=== PATIENT | male | born 1950 | race Caucasian/White ===

== ENCOUNTER 2016-07-19 19:23 | Inpatient (IN) | payer OTHER ==
[2016-07-19 19:33] VITALS: BMI 24.4
--- NOTE | 2016-07-19 19:39 | PDOC ---
History of Present Illness - General History Source: Patient Exam Limitations: No Limitations - History of Present Illness Initial Comments: 07/19/16 21:04 The patient is a 66-year-old male with a significant past medical history of diabetes, CHF, hypertension, hypercholesterolemia, vertigo, (compliant with medications), and presents to the emergency department with increased urination , lightheadedness, and generalized weakness for the last few days. The patient reports an increase in urination from his baseline, accompanied by increased thirst. He reports feeling like the room is spinning. He reports nausea for the last 4 days, and has not been eating secondary to the nausea. He reports associated constipation and chills. He reports his sugar levels have been high, but does not deviate from his baseline. The patient denies chest pain, shortness of breath, and headache. The patient denies fever, abdominal pain, vomit, and diarrhea. The patient denies dysuria and hematuria. He denies recent sick contacts or changes in medications. 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 Dumas/ Dr. Araceli Jara <Madeline Schmidt - Last Filed: 07/19/16 22:04> <Pauline Goff - Last Filed: 07/19/16 23:38> - General Chief Complaint: Urinary Problem Stated Complaint: LIGHTHEADED/URINARY PROBLEM Time Seen by Provider: 07/19/16 19:38 Past History <Madeline Schmidt - Last Filed: 07/19/16 22:04> - Past Medical History Diabetes: Yes HTN: Yes Hypercholesterolemia: Yes - Immunization History Immunization Up to Date: Yes - Psycho/Social/Smoking Cessation Hx Anxiety: No Suicidal Ideation: No Smoking History: Never smoked Have you smoked in the past 12 months: No If you are a former smoker, when did you quit?: 30 YEARS AGO Information on smoking cessation initiated: No Hx Alcohol Use: No Drug/Substance Use Hx: No Substance Use Type: None <Pauline Goff - Last Filed: 07/19/16 23:38> - Past Medical History Allergies/Adverse Reactions: Allergies Allergy/AdvReac Type Severity Reaction Status Date / Time No Known Allergies Allergy Verified 07/19/16 19:33 Home Medications: Ambulatory Orders Aspirin [ASA -] 81 mg PO DAILY 07/19/16 Clopidogrel Bisulfate [Plavix -] 75 mg PO DAILY 07/19/16 Furosemide [Lasix] 80 mg PO DAILY 07/19/16 Insulin Glargine,Hum.rec.anlog [Toudemetriceo Solostar] 50 unit SQ DAILY 07/19/16 Insulin Lispro [Humalog] 10 unit SQ TID 07/19/16 Metoprolol Succinate [Toprol Xl -] 25 mg PO BID 07/19/16 Rosuvastatin [Crestor -] 40 mg PO DAILY 07/19/16 Review of Systems - Review of Systems Able to Perform ROS?: Yes Comments:: 07/19/16 21:04 CONSTITUTIONAL: Present: (+) chills, (+) generalized weakness, (+) loss of appetite Absent: fever, diaphoresis, malaise HEENT: Absent: rhinorrhea, nasal congestion, throat pain, throat swelling, difficulty swallowing, mouth swelling, ear pain, eye pain, visual changes CARDIOVASCULAR: Present: (+) lightheadedness Absent: chest pain, syncope, palpitations, irregular heart rate, peripheral edema RESPIRATORY: Absent: cough, shortness of breath, dyspnea with exertion, orthopnea, wheezing, stridor, hemoptysis GASTROINTESTINAL: Present: (+) nausea, (+) constipation Absent: abdominal pain, abdominal distension, vomiting, diarrhea, melena, hematochezia GENITOURINARY: Present: (+) increased urination Absent: dysuria, urgency, hesitancy, hematuria, flank pain, genital pain MUSCULOSKELETAL: Absent: myalgia, arthralgia, joint swelling SKIN: Absent: rash, itching, pallor HEMATOLOGIC/IMMUNOLOGIC: Absent: easy bleeding, easy bruising, lymphadenopathy, frequent infections ENDOCRINE: Absent: unexplained weight gain, unexplained weight loss, heat intolerance, cold intolerance NEUROLOGIC: Absent: headache, focal weakness or paresthesias, unsteady gait, seizure, mental status changes, bladder or bowel incontinence PSYCHIATRIC: Absent: anxiety, depression, suicidal or homicidal ideation, hallucinations. <Madeline Schmidt - Last Filed: 07/19/16 22:04> *Physical Exam - Vital Signs Last Vital Signs Temp Pulse Resp BP Pulse Ox 100.5 F H 84 20 136/78 95 07/19/16 19:30 07/19/16 20:56 07/19/16 20:56 07/19/16 20:56 07/19/16 20:56 - Physical Exam Comments: 07/19/16 21:05 GENERAL: Well developed, well nourished. Awake and alert. No acute distress. (+) Febrile. HEENT: Normocephalic, atraumatic. PERRLA, EOMI. No conjunctival pallor. Sclera are non- icteric. Moist mucous membranes. Oropharynx is clear. NECK: Supple. Full ROM. No JVD. Carotid pulses 2+ and symmetric, without bruits. No thyromegaly. No lymphadenopathy. CARDIOVASCULAR: (+) Midsternal surgical scar. Regular rate and rhythm. No murmurs, rubs, or gallops. Distal pulses are 2+ and symmetric. PULMONARY: No evidence of respiratory distress. Lungs clear to auscultation bilaterally. No wheezing, rales or rhonchi. ABDOMINAL: Soft. Non-tender. Non-distended. No rebound or guarding. No organomegaly. Normoactive bowel sounds. MUSCULOSKELETAL Normal range of motion at all joints. No bony deformities or tenderness. No CVA tenderness. EXTREMITIES: No cyanosis. No clubbing. No edema. No calf tenderness. SKIN: Warm and dry. Normal capillary refill. No rashes. No jaundice. NEUROLOGICAL: Alert, awake, appropriate. Cranial nerves 2-12 intact. No deficits to light touch and temperature in face, upper extremities and lower extremities. No motor deficits in the in face, upper extremities and lower extremities. Normoreflexic in the upper and lower extremities. Normal speech. Toes are down- going bilaterally. Gait is normal without ataxia. PSYCHIATRIC: Cooperative. Good eye contact. Appropriate mood and affect. <Madeline Schmidt - Last Filed: 07/19/16 22:04> - Vital Signs Last Vital Signs Temp Pulse Resp BP Pulse Ox 100.5 F H 94 H 18 140/78 99 07/19/16 19:30 07/19/16 19:30 07/19/16 19:30 07/19/16 19:30 07/19/16 19:30 <Pauline Goff - Last Filed: 07/19/16 23:38> ED Treatment Course - LABORATORY CBC & Chemistry Diagram: 07/19/16 14:52 07/19/16 14:52 - ADDITIONAL ORDERS Additional order review: Laboratory Results 07/19/16 20:36 Urine Color Yellow Urine Appearance Cloudy Urine pH 5.0 Ur Specific [place] 1.013 Urine Protein 3+ H Urine Glucose (UA) 2+ H Urine Ketones Negative Urine Blood 2+ H Urine Nitrite Negative Urine Bilirubin Negative Urine Urobilinogen Negative Ur Leukocyte Esterase 3+ H Urine RBC 14 Urine WBC 322 Ur Epithelial Cells Rare Urine Bacteria Many Urine Mucus Rare 07/19/16 14:52 RBC 4.43 MCV 84.1 MCHC 32.5 RDW 15.5 MPV 9.5 Neutrophils % 86.8 H Lymphocytes % 3.6 L D Monocytes % 9.4 Eosinophils % 0.0 D Basophils % 0.2 - Medications Given in the ED: ED Medications Discontinued Medications Generic Name Dose Route Start Last Admin Trade Name Chapo PRN Reason Stop Dose Admin Acetaminophen 650 mg 07/19/16 20:33 07/19/16 20:43 Tylenol - PO 07/19/16 20:34 650 mg ONCE ONE Administration Insulin Human Regular 4 units 07/19/16 20:32 07/19/16 20:44 Novolin R Vial *Ivpush / Er / Icu Only* SQ 07/19/16 20:33 4 units ONCE ONE Administration Sodium Chloride 1,000 ml 07/19/16 20:06 07/19/16 20:36 Normal Saline - IV 07/19/16 20:07 1,000 ml ONCE ONE Administration <Madeline Schmidt - Last Filed: 07/19/16 22:04> - LABORATORY CBC & Chemistry Diagram: 07/19/16 14:52 07/19/16 14:52 <Pauline Goff - Last Filed: 07/19/16 23:38> Medical Decision Making - Medical Decision Making 07/19/16 21:[address] King. 07/19/16 22:[address] King. <Madeline Schmidt - Last Filed: 07/19/16 22:04> - Medical Decision Making 07/19/16 23:35 Uncontrolled DM and HTN patient comes with a fever 3 mos after CABG. Pt states that he has been urinating a lot. He also has a cough. He will be treated with levaquin to cover possible pneumonia and UTI (he has multiple leukocytes) Pt also has + troponin and will need to be followed in tele. However his BIUN and Cr are elevated and this may be the reason for his troponin. <Pauline Goff - Last Filed: 07/19/16 23:38> *DC/Admit/Observation/Transfer - Attestations Scribe Attestion: 07/19/16 21:05 Documentation prepared by Madeline Schmidt, acting as medical technician for Pauline Goff MD. <Madeline Schmidt - Last Filed: 07/19/16 22:04> - Discharge Dispostion Admit: Yes <Pauline Goff - Last Filed: 07/19/16 23:38> Diagnosis at time of Disposition: Diabetes, Elevated troponin, Uncontrolled diabetes mellitus, HTN (hypertension) , Pneumonia - Referrals
[2016-07-19] MEDS ORDERED: SODIUM CHLORIDE 0.9% 500 ML INFUS.BAG IV ONE (20:06)
[2016-07-19] MEDS ORDERED: INSULIN REGULAR HUMAN 100 UNITS/ML *VIAL SQ ONE (20:32)
[2016-07-19] MEDS ORDERED: ACETAMINOPHEN 325 MG TABLET (FP) PO ONE (20:33)
[2016-07-19] MEDS ORDERED: ACETAMINOPHEN 325 MG TABLET (FP) ONE (20:37)
[2016-07-19] MEDS ORDERED: INSULIN REGULAR HUMAN 100 UNITS/ML *VIAL ONE (20:39)
[2016-07-19 20:43] LABS: URINE APPEARANCE CLOUDY; URINE BILIRUBIN NEGATIVE (NEGATIVE); URINE COLOR YELLOW; URINE GLUCOSE (UA) 2+ (NEGATIVE); URINE KETONE NEGATIVE (NEGATIVE); URINE NITRITE NEGATIVE (NEGATIVE); URINE UROBILINOGEN NEGATIVE E.U./dl (0.2-1.0)
[2016-07-19 20:46] LABS: BASOPHIL 0.2 % (0-2.0); MCH 27.3 pg (25.7-33.7); MCHC 32.5 g/dl (32.0-35.9); MEAN CELL VOLUME 84.1 fl (80-96); MEAN PLT VOLUME 9.5 fl (7.5-11.1); NEUTROPHILS 86.8 % (42.8-82.8); PLATELET COUNT 189 K/MM3 (134-434); RDW 15.5 % (11.9-15.9); WHITE BLOOD COUNT 13.7 K/mm3 (4.0-10.0)
[2016-07-19 20:51] LABS: URINE BLOOD 2+ (NEGATIVE); URINE LEUK ESTERASE 3+ (NEGATIVE); URINE PROTEIN 3+ (NEGATIVE)
[2016-07-19 20:52] LABS: URINE BACTERIA MANY /hpf (NONE SEEN); URINE MUCUS RARE; URINE RBC 14 /hpf (0-3); URINE WBC 322 /hpf (3-5)
[2016-07-19] MEDS ORDERED: LEVOFLOXACIN 500 MG IVPB 100 ML IVPB ONE ×2 (20:53→21:11)
[2016-07-19 21:10] LABS: ALBUMIN 3.1 g/dl (3.4-5.0); BILIRUBIN,TOTAL 0.4 mg/dL (0.2-1.0); CALCIUM 8.3 mg/dL (8.5-10.1); TOT PROT 7.3 g/dl (6.4-8.2)
[2016-07-19 21:13] LABS: TROPONIN I 0.06 ng/ml (0.00-0.05)
[2016-07-19] MEDS ORDERED: METRONIDAZOLE 500 MG PREMIXED 100 ML IVPB ONE ×2 (21:41→21:56)
[2016-07-19] MEDS ORDERED: ACETAMINOPHEN 325 MG TABLET (FP) PO PRN (21:45)
[2016-07-19] MEDS ORDERED: METOPROLOL SUCCINATE 50 MG TAB.SR.24H (FP) ONE (21:56)
[2016-07-19] MEDS: METOPROLOL SUCCINATE 25 MG TAB.SR.24H (FP) PO SCH (22:06)
[2016-07-19] MEDS ORDERED: HEPARIN NA (PORCINE) 5,000 UNITS/ML 1ML VIAL ONE (22:11)
[2016-07-19] MEDS ORDERED: INSULIN DETEMIR 100 UNITS/ML MDV SQ ONE (22:12)
[2016-07-19] MEDS: HEPARIN NA (PORCINE) 5,000 UNITS/ML 1ML VIAL SQ SCH (22:21)
[2016-07-19] MEDS: INSULIN DETEMIR 100 UNITS/ML MDV SQ SCH (22:22)
[2016-07-19] MEDS: INSULIN SLIDING SCALE (NOVOLOG) 1 VIAL SQ SCH (22:22)
[2016-07-20 07:21] LABS: BASOPHIL 0.4 % (0-2.0); EOSINOPHIL 0.8 % (0-4.5); MCH 28.3 pg (25.7-33.7); MCHC 33.4 g/dl (32.0-35.9); MEAN CELL VOLUME 84.8 fl (80-96); MEAN PLT VOLUME 9.3 fl (7.5-11.1); NEUTROPHILS 73.1 % (42.8-82.8); PLATELET COUNT 182 K/MM3 (134-434); RDW 15.7 % (11.9-15.9); WHITE BLOOD COUNT 12.9 K/mm3 (4.0-10.0)
[2016-07-20 07:46] LABS: ALBUMIN 2.6 g/dl (3.4-5.0); CALCIUM 7.9 mg/dL (8.5-10.1); MAGNESIUM 2.2 mg/dL (1.8-2.4)
[2016-07-20 07:48] LABS: BILIRUBIN,TOTAL 0.3 mg/dL (0.2-1.0); CREATININE 1.9 mg/dL (0.7-1.3); TOT PROT 6.4 g/dl (6.4-8.2)
[2016-07-20] MEDS: INSULIN SLIDING SCALE (NOVOLOG) 1 VIAL SQ SCH ×4 (08:00→21:32)
[2016-07-20 08:53] LABS: TROPONIN I 0.04 ng/ml (0.00-0.05)
[2016-07-20] MEDS ORDERED: CEFTRIAXONE 1 GM in DEXTROSE 5%-WATER - 100 ML IVPB SCH (10:00)
[2016-07-20] MEDS: HEPARIN NA (PORCINE) 5,000 UNITS/ML 1ML VIAL SQ SCH ×2 (10:13→21:31)
[2016-07-20] MEDS: INSULIN DETEMIR 100 UNITS/ML MDV SQ SCH ×2 (10:13→21:32)
[2016-07-20] MEDS ORDERED: ASPIRIN 81 MG CHEWABLE TABLETS ONE (10:16)
[2016-07-20] MEDS ORDERED: METOPROLOL SUCCINATE 50 MG TAB.SR.24H (FP) ONE (10:17)
[2016-07-20] MEDS ORDERED: FUROSEMIDE 40 MG TABLET (FP) ONE (10:17)
[2016-07-20] MEDS ORDERED: CEFTRIAXONE 50 ML ONE (10:17)
[2016-07-20] MEDS ORDERED: CLOPIDOGREL BISULFATE 75 MG TABLET (FP) ONE (10:17)
[2016-07-20] MEDS: ASPIRIN 81 MG CHEWABLE TABLETS PO SCH (10:18)
[2016-07-20] MEDS: cefTRIAXone 1 GM/50 ML BAG (PRE-DOCKED) IVPB SCH (10:18)
[2016-07-20] MEDS: FUROSEMIDE 40 MG TABLET (FP) PO SCH (10:18)
[2016-07-20] MEDS: CLOPIDOGREL BISULFATE 75 MG TABLET (FP) PO SCH (10:18)
[2016-07-20] MEDS: METOPROLOL SUCCINATE 25 MG TAB.SR.24H (FP) PO SCH ×2 (10:18→21:31)
--- NOTE | 2016-07-20 10:54 | HP ---
Admitting History and Physical - Admission History of Present Illness: 66-year-old male with a significant past medical history of diabetes, CHF, hypertension, hypercholesterolemia, vertigo, (compliant with medications), and presents to the emergency department with increased urination, lightheadedness, and generalized weakness for the last few days. The patient reports an increase in urination from his baseline, accompanied by increased thirst. He reports feeling like the room is spinning. He reports nausea for the last 4 days, and has not been eating secondary to the nausea. He reports associated constipation and chills. He reports his sugar levels have been high, but does not deviate from his baseline. The patient denies chest pain, shortness of breath, and headache. The patient denies fever, abdominal pain, vomit, and diarrhea. The patient denies dysuria and hematuria. He denies recent sick contacts or changes in medications. 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: Yes: Migraine Cardiovascular: Yes: CAD, HTN, Hyperlipdemia, [place] Gastrointestinal: Yes: GERD Endocrine: Yes: Diabetes Mellitus - Past Surgical History Past Surgical History: Yes: Stent - Smoking History Smoking history: Never smoked Have you smoked in the past 12 months: No If you are a former smoker, when did you quit?: 30 YEARS AGO - Alcohol/Substance Use Hx Alcohol Use: No Home Medications - Allergies Allergies/Adverse Reactions: Allergies Allergy/AdvReac Type Severity Reaction Status Date / Time No Known Allergies Allergy Verified 07/19/16 19:33 - Home Medications Home Medications: Ambulatory Orders Aspirin [ASA -] 81 mg PO DAILY 07/19/16 Clopidogrel Bisulfate [Plavix -] 75 mg PO DAILY 07/19/16 Furosemide [Lasix] 40 mg PO DAILY 07/19/16 Insulin Glargine,Hum.rec.anlog [Toukhris Solostar] 50 unit SQ DAILY 07/19/16 Insulin Lispro [Humalog] 10 unit SQ TID 07/19/16 Metoprolol Succinate [Toprol Xl -] 25 mg PO BID 07/19/16 Rosuvastatin [Crestor -] 40 mg PO DAILY 07/19/16 Review of Systems - Review of Systems Constitutional: reports: Chills, Fever, Weakness Cardiovascular: denies: Chest Pain, Shortness of Breath Respiratory: denies: Hemoptysis, Orthopnea Gastrointestinal: reports: Nausea. denies: Abdominal Pain Genitourinary: reports: Frequency Neurological: reports: Weakness Physical Examination Vital Signs: Vital Signs Temperature 98.4 F 07/20/16 05:54 Pulse Rate 66 07/20/16 08:50 Respiratory Rate 18 07/20/16 08:50 Blood Pressure 154/80 07/20/16 08:50 O2 Sat by Pulse Oximetry (%) 96 07/20/16 08:50 Cardiovascular: Yes: Regular Rate and Rhythm Respiratory: Yes: Diminished Gastrointestinal: Yes: Normal Bowel Sounds, Soft. No: Tenderness Edema: No Neurological: Yes: Alert, Oriented Labs: CBC, BMP 07/20/16 06:32 07/20/16 06:32 Imaging - Results Chest X-ray: Report Reviewed Problem List - Problems (1) Pneumonia Assessment/Plan: R/O IV ABX CT OF CHEST ID CONSULT Code(s): J18.9 - PNEUMONIA, UNSPECIFIED ORGANISM (2) Diabetes Assessment/Plan: MONITOR BGM ADJUST INSULIN--LEVEMIR TO 20 BID ENDO Code(s): E11.9 - TYPE 2 DIABETES MELLITUS WITHOUT COMPLICATIONS (3) Elevated troponin Assessment/Plan: Troponin, BNP 07/19/16 07/20/16 14:52 06:32 Troponin I 0.06 H D 0.04 D B-Natriuretic Peptide 4617.10 H MONITOR EKG Code(s): R79.89 - OTHER SPECIFIED ABNORMAL FINDINGS OF BLOOD CHEMISTRY (4) Renal insufficiency Assessment/Plan: ON LASIX MONITOR AWAIT CT OF CHEST Code(s): N28.9 - DISORDER OF KIDNEY AND URETER, UNSPECIFIED (5) UTI (urinary tract infection) Assessment/Plan: IV ABX CULTURES Code(s): N39.0 - URINARY TRACT INFECTION, SITE NOT SPECIFIED
--- NOTE | 2016-07-20 11:52 | CONSULT ---
Cardiology Consult (text) - Consultation Consultation Note: Cardiology (Dr. Diaz covering Dr. Jara) Patient seen and examined in ED 66 yo male History of DM, HTN and hyperlipidemia Known CAD s/p CABG Now with dizziness and vertigo symptoms Complains of increased urination, lightheadedness, and generalized weakness for the last few days No chest pain or dyspnea Compliant with medications Noted in ED Trop 0.06 to 0.04 VS: BP 154/80mmHg, P75/min afebrile No distress comfortable JVP normal Regular rate no murmurs Lungs are clear bilateally No LE edema Abd is soft no tenderness ECG: NSR at 88/min with lAE, LVH and T-wave inversion in aVL and inferior Qs LABS: BUN/Cr 36/2.0, Hgb 12.1 Plt 189,000 Trop 0.06 to 0.04 IMP/PLAN Dizziness with vertigo symptoms (+) troponin unlikely ACS with no chest pain Agree with admission to telemetry for further monitoring and enzyme trend Abx for UTI and infectious workup
--- NOTE | 2016-07-20 14:32 | EKG ---
Test Reason : Blood Pressure : / mmHG Vent. Rate : 068 BPM Atrial Rate : 068 BPM P-R Int : 154 ms QRS Dur : 090 ms QT Int : 434 ms P-R-T Axes : 050 -03 081 degrees QTc Int : 461 ms NORMAL SINUS RHYTHM MINIMAL VOLTAGE CRITERIA FOR LVH, MAY BE NORMAL VARIANT INFERIOR INFARCT (CITED ON OR BEFORE 19-JUL-2014) ABNORMAL ECG WHEN COMPARED WITH ECG OF 19-JUL-2016 20:06, NO SIGNIFICANT CHANGE WAS FOUND Confirmed by KASH AVENDANO MD ([id number]) on 07/20/2016 2:32:16 PM Referred By: JAMEEL SOTO Confirmed By:KASH AVENDANO MD
--- NOTE | 2016-07-20 14:38 | EKG ---
Test Reason : Blood Pressure : / mmHG Vent. Rate : 088 BPM Atrial Rate : 088 BPM P-R Int : 140 ms QRS Dur : 088 ms QT Int : 368 ms P-R-T Axes : 050 -11 080 degrees QTc Int : 445 ms NORMAL SINUS RHYTHM POSSIBLE LEFT ATRIAL ENLARGEMENT LEFT VENTRICULAR HYPERTROPHY INFERIOR INFARCT (CITED ON OR BEFORE 19-JUL-2014) ABNORMAL ECG WHEN COMPARED WITH ECG OF 18-DEC-2015 16:54, NO SIGNIFICANT CHANGE WAS FOUND Confirmed by KASH AVENDANO MD ([id number]) on 07/20/2016 2:38:34 PM Referred By: Confirmed By:KASH AVENDANO MD
[2016-07-20] MEDS: ROSUVASTATIN CA 20 MG TABLET (FP) PO SCH (21:31)
[2016-07-21] MEDS ORDERED: INSULIN (NOVOLOG) ASPART 100 UNITS/ML 10ML VIAL ONE ×2 (06:10→12:04)
[2016-07-21] MEDS: INSULIN SLIDING SCALE (NOVOLOG) 1 VIAL SQ SCH ×4 (06:22→21:48)
[2016-07-21] MEDS: METOPROLOL SUCCINATE 25 MG TAB.SR.24H (FP) PO SCH ×2 (07:25→21:49)
[2016-07-21 08:10] LABS: BASOPHIL 0.5 % (0-2.0); EOSINOPHIL 1.7 % (0-4.5); MCH 28.7 pg (25.7-33.7); MCHC 33.7 g/dl (32.0-35.9); MEAN CELL VOLUME 85.1 fl (80-96); MEAN PLT VOLUME 9.3 fl (7.5-11.1); NEUTROPHILS 73.3 % (42.8-82.8); PLATELET COUNT 191 K/MM3 (134-434); RDW 15.8 % (11.9-15.9); WHITE BLOOD COUNT 10.1 K/mm3 (4.0-10.0)
[2016-07-21 08:17] LABS: ALBUMIN 2.6 g/dl (3.4-5.0); CALCIUM 8.3 mg/dL (8.5-10.1)
[2016-07-21 08:24] LABS: BILIRUBIN,TOTAL 0.3 mg/dL (0.2-1.0); CREATININE 1.5 mg/dL (0.7-1.3); TOT PROT 6.2 g/dl (6.4-8.2); TROPONIN I 0.02 ng/ml (0.00-0.05)
[2016-07-21] MEDS: FUROSEMIDE 40 MG TABLET (FP) PO SCH (09:39)
[2016-07-21] MEDS: CLOPIDOGREL BISULFATE 75 MG TABLET (FP) PO SCH (09:39)
[2016-07-21] MEDS: cefTRIAXone 1 GM/50 ML BAG (PRE-DOCKED) IVPB SCH (09:39)
[2016-07-21] MEDS: ASPIRIN 81 MG CHEWABLE TABLETS PO SCH (09:39)
[2016-07-21] MEDS: INSULIN DETEMIR 100 UNITS/ML MDV SQ SCH ×2 (09:40→21:50)
[2016-07-21] MEDS: HEPARIN NA (PORCINE) 5,000 UNITS/ML 1ML VIAL SQ SCH ×2 (09:40→21:48)
--- NOTE | 2016-07-21 09:41 | PN ---
Progress Note, Physician History of Present Illness: feels better - Current Medication List Current Medications: Active Medications Acetaminophen (Tylenol -) 650 mg PO Q4H PRN PRN Reason: FEVER OR PAIN Aspirin (Asa -) 81 mg PO DAILY [facility] Last Admin: 07/20/16 10:18 Dose: 81 mg Ceftriaxone Sodium (Rocephin 1gm Ivpb (Pre-Docked)) 1 gm IVPB DAILY [facility] Last Admin: 07/20/16 10:18 Dose: 1 gm Clopidogrel Bisulfate (Plavix -) 75 mg PO DAILY [facility] Last Admin: 07/20/16 10:18 Dose: 75 mg Furosemide (Lasix -) 80 mg PO DAILY [facility] Last Admin: 07/20/16 10:18 Dose: 80 mg Heparin Sodium (Porcine) (Heparin -) 5,000 unit SQ BID [facility] Last Admin: 07/20/16 21:31 Dose: 5,000 unit Insulin Aspart (Novolog Vial Sliding Scale -) 1 vial SQ [facility] PRN Reason: Protocol Last Admin: 07/21/16 06:22 Dose: Not Given Insulin Detemir (Levemir Vial) 20 units SQ BID [facility] Last Admin: 07/20/16 21:32 Dose: 20 units Metoprolol Succinate (Toprol Xl -) 25 mg PO BID [facility] Last Admin: 07/20/16 21:31 Dose: 25 mg Rosuvastatin Calcium (Crestor -) 40 mg PO HS [facility] Last Admin: 07/20/16 21:31 Dose: 40 mg - Objective Vital Signs: Vital Signs Temperature 98 F 07/21/16 01:59 Pulse Rate 72 07/21/16 01:59 Respiratory Rate 18 07/21/16 01:59 Blood Pressure 141/77 07/21/16 01:59 O2 Sat by Pulse Oximetry (%) 96 07/20/16 22:00 Cardiovascular: Yes: Regular Rate and Rhythm Respiratory: Yes: Regular, CTA Bilaterally Gastrointestinal: Yes: Normal Bowel Sounds, Soft Labs: CBC, BMP 07/21/16 07:08 07/21/16 07:08 Problem List - Problems (1) Pneumonia Assessment/Plan: R/O IV ABX CT OF CHEST ID CONSULT Code(s): J18.9 - PNEUMONIA, UNSPECIFIED ORGANISM (2) Diabetes Assessment/Plan: MONITOR BGM ADJUST INSULIN--LEVEMIR TO 20 BID ENDO Code(s): E11.9 - TYPE 2 DIABETES MELLITUS WITHOUT COMPLICATIONS (3) Elevated troponin Assessment/Plan: Troponin, BNP 07/19/16 07/20/16 14:52 06:32 Troponin I 0.06 H D 0.04 D B-Natriuretic Peptide 4617.10 H MONITOR EKG Code(s): R79.89 - OTHER SPECIFIED ABNORMAL FINDINGS OF BLOOD CHEMISTRY (4) Renal insufficiency Assessment/Plan: ON LASIX MONITOR AWAIT CT OF CHEST Code(s): N28.9 - DISORDER OF KIDNEY AND URETER, UNSPECIFIED (5) UTI (urinary tract infection) Assessment/Plan: IV ABX CULTURES Code(s): N39.0 - URINARY TRACT INFECTION, SITE NOT SPECIFIED
--- NOTE | 2016-07-21 10:07 | PN ---
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: ID Consult dictated UTI/ Possible sepsis secondary to UTI Leukocytosis Azotemia Uncontrolled DM Pending c/s, continue ceftriaxone
--- NOTE | 2016-07-21 11:15 | CONS ---
DATE OF CONSULTATION: HISTORY: The patient is a 66-year-old male who was evaluated for sepsis. He was admitted to the hospital on July 19, 2016 with complaints of urinary frequency, generalized weakness, dizziness, and nausea. Symptoms worsened over the 4 days prior to admission. He presented to the emergency room where urinalysis showed many white cells. He was also found to have an elevated white blood cell count. He was empirically treated with ceftriaxone. At the present time, he complains of urinary frequency. He denies any dysuria or hematuria. He has an occasional cough. Chest x-ray showed possible right lower lobe infiltrate; however, CAT scan appears clear. He denies any ill contacts. No recent hospitalizations. His course has been complicated by uncontrolled diabetes mellitus. PAST MEDICAL HISTORY: Positive for diabetes mellitus, coronary artery disease status post recent coronary artery bypass, congestive heart failure, hypertension, hyperlipidemia. PAST SURGICAL HISTORY: Status post coronary artery bypass approximately 3 months ago. ALLERGIES: No known allergies. MEDICATIONS: Tylenol, ceftriaxone, heparin, Toprol, Crestor, NovoLog, Levemir, Lasix, aspirin, Plavix. SOCIAL HISTORY: He lives alone. 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 Nonsmoker, nondrinker. REVIEW OF SYSTEMS: Neurologic: Positive for dizziness. No loss of consciousness, seizure activity, or focal weakness. Cardiac: Negative chest pain or palpitations. Respiratory: As per HPI. Gastrointestinal: Positive for nausea. No vomiting or diarrhea. Genitourinary: As per HPI. LABORATORY DATA: White count on admission 13.7, presently 10.1, hematocrit 32.8, platelet count 191. Glucose 286, creatinine 1.5. Urinalysis 322 white cells. Blood cultures preliminarily no growth. Urine culture growing a lactose placement specialist. Flu swab negative. Chest x-ray shows possible infiltrate versus atelectasis right base. CAT scan not officially read, however, appears clear. PHYSICAL EXAMINATION: General: He is awake and alert. He is not acutely toxic appearing. Vital Signs: Temperature 98, T-max 100.5, blood pressure 141/77, pulse 72, regular, respirations 18 per minute. HEENT: Sclerae anicteric. Heart: Sounds S1, S2. Lungs: Rales at the bases bilaterally. There is a healed sternal scar. Abdomen: Soft. No suprapubic or flank tenderness. Extremities: Negative for edema. IMPRESSION: 1. Urinary tract infection, possible sepsis secondary to urinary tract infection. 2. Leukocytosis. 3. Uncontrolled diabetes mellitus. 4. Azotemia. PLAN: Pending culture results, continue empiric ceftriaxone 1 g IV piggyback daily. Further recommendations pending final urine culture. We will follow. Thank you for the kind referral. GIO PERRY M.D. [id number]
--- NOTE | 2016-07-21 12:11 | PN ---
Progress Note, Physician History of Present Illness: No complaints today Feels dizziness is better No chest pain or dyspnea Patient clarified presenting symptosm were dizziness with increased urination and decreased PO intake. (+) UTI - Current Medication List Current Medications: Active Medications Acetaminophen (Tylenol -) 650 mg PO Q4H PRN PRN Reason: FEVER OR PAIN Aspirin (Asa -) 81 mg PO DAILY [facility] Last Admin: 07/21/16 09:39 Dose: 81 mg Ceftriaxone Sodium (Rocephin 1gm Ivpb (Pre-Docked)) 1 gm IVPB DAILY [facility] Last Admin: 07/21/16 09:39 Dose: 1 gm Clopidogrel Bisulfate (Plavix -) 75 mg PO DAILY [facility] Last Admin: 07/21/16 09:39 Dose: 75 mg Furosemide (Lasix -) 80 mg PO DAILY [facility] Last Admin: 07/21/16 09:39 Dose: 80 mg Heparin Sodium (Porcine) (Heparin -) 5,000 unit SQ BID [facility] Last Admin: 07/21/16 09:40 Dose: 5,000 unit Insulin Aspart (Novolog Vial Sliding Scale -) 1 vial SQ [facility] PRN Reason: Protocol Last Admin: 07/21/16 06:22 Dose: Not Given Insulin Detemir (Levemir Vial) 20 units SQ BID [facility] Last Admin: 07/21/16 09:40 Dose: 20 units Metoprolol Succinate (Toprol Xl -) 25 mg PO BID [facility] Last Admin: 07/21/16 07:25 Dose: 25 mg Rosuvastatin Calcium (Crestor -) 40 mg PO HS [facility] Last Admin: 07/20/16 21:31 Dose: 40 mg - Objective Vital Signs: Vital Signs Temperature 97.6 F 07/21/16 10:00 Pulse Rate 63 07/21/16 10:00 Respiratory Rate 18 07/21/16 10:00 Blood Pressure 142/69 07/21/16 10:00 O2 Sat by Pulse Oximetry (%) 96 07/21/16 09:00 Constitutional: Yes: No Distress Eyes: Yes: WNL HENT: Yes: WNL Neck: Yes: WNL Cardiovascular: Yes: WNL Respiratory: Yes: WNL Gastrointestinal: Yes: WNL Extremities: Yes: WNL Edema: No Wound/Incision: Yes: Other (Midline sternotomy well healed) Labs: CBC, BMP 07/21/16 07:08 07/21/16 07:08 Assessment/Plan 66 yo male Known CAD s[place] 3[place] arterial [place] [facility] [place] admitted with dizziness, decreased PO intake and increased urination with (+ ) UTI 1) Dizziness with vertigo symptoms -Likely related to UTI and ?pnemonia -Being treated with Abx -Can discontinue telemetry 2) (+) troponin (0.06) -low level and unlikely ACS with no chest pain -Has recent 3V CABG (PAPPAS to LAD, free radial to OM1 and free radial to OM3) -Last LVEF at [place] was 48% in 03/2016 -Continue asa and BB and statin 3) HTN -Controllled continue current regimen 4) CKD -Baseline Cr 1.98 at discharge from [place] in 03/2016 -Stable -Continue Lasix 80mg BID for elevated BNP
--- NOTE | 2016-07-21 21:26 | CONSULT ---
Consult Consult Specialty:: endocrine/diabetes mellitus Referred by:: dr.iyad robison Reason for Consultation:: iddm uncontrolled - History of Present Illness Chief Complaint: high sugars History of Present Illness: 66-year-old male with a significant past medical history of diabetes, CHF, hypertension, hypercholesterolemia, vertigo, (compliant with medications), and presents to the emergency department with increased urination, lightheadedness, and generalized weakness for the last few days,has light headed feeling and elevated blood sugars in 200- 300 mg range,no low sugars noted - History Source History Provided By: Patient - 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 Medical History 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 Cardio/Vascular: Yes: CAD, HTN, Hyperlipdemia, [place] Gastrointestinal: Yes: GERD Endocrine: Yes: Diabetes Mellitus - Past Surgical History Past Surgical History: Yes: Stent - Alcohol/Substance Use Hx Alcohol Use: No - Smoking History Smoking history: Never smoked Have you smoked in the past 12 months: No If you are a former smoker, when did you quit?: 30 YEARS AGO Home Medications - Allergies Allergies/Adverse Reactions: Allergies Allergy/AdvReac Type Severity Reaction Status Date / Time No Known Allergies Allergy Verified 07/19/16 19:33 - Home Medications Home Medications: Ambulatory Orders Aspirin [ASA -] 81 mg PO DAILY 07/19/16 Clopidogrel Bisulfate [Plavix -] 75 mg PO DAILY 07/19/16 Furosemide [Lasix] 40 mg PO DAILY 07/19/16 Insulin Glargine,Hum.rec.anlog [Toujeo Solostar] 50 unit SQ DAILY 07/19/16 Insulin Lispro [Humalog] 10 unit SQ TID 07/19/16 Metoprolol Succinate [Toprol Xl -] 25 mg PO BID 07/19/16 Rosuvastatin [Crestor -] 40 mg PO DAILY 07/19/16 Review of Systems - Review of Systems Constitutional: reports: Loss of Appetite Eyes: reports: Blurred Vision HENT: reports: No Symptoms Neck: reports: No Symptoms Cardiovascular: reports: Shortness of Breath Respiratory: reports: SOB on Exertion Gastrointestinal: reports: No Symptoms Genitourinary: reports: No Symptoms Breasts: reports: No Symptoms Reported Musculoskeletal: reports: Muscle Cramps Neurological: reports: No Symptoms Endocrine: reports: Increased Hunger Physical Exam Vital Signs: Vital Signs Temperature 98 F 07/21/16 14:00 Pulse Rate 68 07/21/16 14:00 Respiratory Rate 18 07/21/16 14:00 Blood Pressure 136/72 07/21/16 14:00 O2 Sat by Pulse Oximetry (%) 96 07/21/16 09:00 Constitutional: Yes: Anxious Eyes: Yes: EOM Intact HENT: Yes: Normocephalic Neck: Yes: Trachea Midline Respiratory: Yes: CTA Bilaterally Gastrointestinal: Yes: Normal Bowel Sounds ...Rectal Exam: Yes: Deferred Renal/: Yes: WNL Breast(s): Yes: WNL Musculoskeletal: Yes: WNL Extremities: Yes: WNL Edema: No Peripheral Pulses WNL: Yes Neurological: Yes: WNL ...Motor Strength: WNL Labs: CBC, BMP 07/21/16 07:08 07/21/16 07:08 Problem List - Problems (1) Elevated troponin Code(s): R79.89 - OTHER SPECIFIED ABNORMAL FINDINGS OF BLOOD CHEMISTRY (2) HTN (hypertension) Code(s): I10 - ESSENTIAL (PRIMARY) HYPERTENSION (3) UTI (urinary tract infection) Code(s): N39.0 - URINARY TRACT INFECTION, SITE NOT SPECIFIED (4) Uncontrolled diabetes mellitus Code(s): E11.65 - TYPE 2 DIABETES MELLITUS WITH HYPERGLYCEMIA Assessment/Plan Current Active Problems Diabetes (Acute) Elevated troponin (Acute) HTN (hypertension) (Acute) Pneumonia (Acute) UTI (urinary tract infection) (Acute) Uncontrolled diabetes mellitus (Acute) Abnormal Lab Results 07/21/16 07/21/16 07:08 07:08 WBC 10.1 H RBC 3.86 L Hgb 11.1 L Hct 32.8 L Monocytes % 13.4 H Anion Gap 6 L BUN 38 H Creatinine 1.5 H D Calcium 8.3 L Total Protein 6.2 L Albumin 2.6 L Laboratory Tests 07/19/16 07/20/16 07/21/16 20:36 06:32 07:08 Sodium 140 Potassium 4.2 Chloride 107 Carbon Dioxide 27 Anion Gap 6 L BUN 38 H Creatinine 1.5 H D Creat Clearance w eGFR 46.97 POC Glucometer Random Glucose 102 D Hemoglobin A1c % 9.8 H D Urine Color Yellow Urine Appearance Cloudy Urine pH 5.0 Ur Specific [place] 1.013 Urine Protein 3+ H Urine Glucose (UA) 2+ H Urine Ketones Negative Urine Blood 2+ H Urine Nitrite Negative Urine Bilirubin Negative Urine Urobilinogen Negative Ur Epithelial Cells Rare Urine Bacteria Many 07/21/16 07/21/16 11:07 16:45 Sodium Potassium Chloride Carbon Dioxide Anion Gap BUN Creatinine Creat Clearance w eGFR POC Glucometer 192 162 Random Glucose Hemoglobin A1c % Urine Color Urine Appearance Urine pH Ur Specific [place] Urine Protein Urine Glucose (UA) Urine Ketones Urine Blood Urine Nitrite Urine Bilirubin Urine Urobilinogen Ur Epithelial Cells Urine Bacteria plan: bgm ac hs coverage with novolog insulin levemir 20 units bid diet consult will need monitoring of thoracic aneurysm
[2016-07-21] MEDS: ROSUVASTATIN CA 20 MG TABLET (FP) PO SCH (21:49)
[2016-07-22] MEDS: INSULIN SLIDING SCALE (NOVOLOG) 1 VIAL SQ SCH ×4 (06:14→21:03)
[2016-07-22] MEDS: FUROSEMIDE 40 MG TABLET (FP) PO SCH (09:23)
[2016-07-22] MEDS: CLOPIDOGREL BISULFATE 75 MG TABLET (FP) PO SCH (09:23)
[2016-07-22] MEDS: ASPIRIN 81 MG CHEWABLE TABLETS PO SCH (09:23)
[2016-07-22] MEDS: cefTRIAXone 1 GM/50 ML BAG (PRE-DOCKED) IVPB SCH (09:23)
[2016-07-22] MEDS: INSULIN DETEMIR 100 UNITS/ML MDV SQ SCH ×2 (09:24→21:02)
[2016-07-22] MEDS: METOPROLOL SUCCINATE 25 MG TAB.SR.24H (FP) PO SCH ×2 (09:24→21:03)
[2016-07-22] MEDS: HEPARIN NA (PORCINE) 5,000 UNITS/ML 1ML VIAL SQ SCH ×2 (09:24→21:02)
--- NOTE | 2016-07-22 09:50 | PN ---
Progress Note, Physician History of Present Illness: feels better - Current Medication List Current Medications: Active Medications Acetaminophen (Tylenol -) 650 mg PO Q4H PRN PRN Reason: FEVER OR PAIN Aspirin (Asa -) 81 mg PO DAILY [facility] Last Admin: 07/22/16 09:23 Dose: 81 mg Ceftriaxone Sodium (Rocephin 1gm Ivpb (Pre-Docked)) 1 gm IVPB DAILY [facility] Last Admin: 07/22/16 09:23 Dose: 1 gm Clopidogrel Bisulfate (Plavix -) 75 mg PO DAILY [facility] Last Admin: 07/22/16 09:23 Dose: 75 mg Furosemide (Lasix -) 80 mg PO DAILY [facility] Last Admin: 07/22/16 09:23 Dose: 80 mg Heparin Sodium (Porcine) (Heparin -) 5,000 unit SQ BID [facility] Last Admin: 07/22/16 09:24 Dose: 5,000 unit Insulin Aspart (Novolog Vial Sliding Scale -) 1 vial SQ ACHS [facility] PRN Reason: Protocol Last Admin: 07/22/16 06:14 Dose: Not Given Insulin Detemir (Levemir Vial) 20 units SQ BID [facility] Last Admin: 07/22/16 09:24 Dose: 20 units Metoprolol Succinate (Toprol Xl -) 25 mg PO BID [facility] Last Admin: 07/22/16 09:24 Dose: 25 mg Rosuvastatin Calcium (Crestor -) 40 mg PO HS [facility] Last Admin: 07/21/16 21:49 Dose: 40 mg - Objective Vital Signs: Vital Signs Temperature 97.7 F 07/22/16 06:00 Pulse Rate 63 07/22/16 06:00 Respiratory Rate 20 07/22/16 06:00 Blood Pressure 166/80 07/22/16 06:00 O2 Sat by Pulse Oximetry (%) 98 07/21/16 21:00 Cardiovascular: Yes: Regular Rate and Rhythm Respiratory: Yes: Regular, CTA Bilaterally Gastrointestinal: Yes: Normal Bowel Sounds, Soft Labs: CBC, BMP 07/21/16 07:08 07/21/16 07:08 Problem List - Problems (1) Pneumonia Assessment/Plan: NO EVIDENCE ON CT--OLD CHANGES CT OF CHEST--4.5 AORTIC ROOT ID CONSULT Code(s): J18.9 - PNEUMONIA, UNSPECIFIED ORGANISM (2) Diabetes Assessment/Plan: MONITOR BGM ADJUST INSULIN--LEVEMIR TO 20 BID ENDO Code(s): E11.9 - TYPE 2 DIABETES MELLITUS WITHOUT COMPLICATIONS (3) Elevated troponin Assessment/Plan: Troponin, BNP 07/19/16 07/20/16 14:52 06:32 Troponin I 0.06 H D 0.04 D B-Natriuretic Peptide 4617.10 H MONITOR EKG Code(s): R79.89 - OTHER SPECIFIED ABNORMAL FINDINGS OF BLOOD CHEMISTRY (4) Renal insufficiency Assessment/Plan: ON LASIX MONITOR AWAIT CT OF CHEST Code(s): N28.9 - DISORDER OF KIDNEY AND URETER, UNSPECIFIED (5) UTI (urinary tract infection) Assessment/Plan: IV ABX CULTURES Microbiology 07/19/16 20:36 Urine Culture - Final Urine - Urine Clean Catch Escherichia Coli 07/19/16 20:30 Blood Culture - Preliminary Blood - Peripheral Venous NO GROWTH OBTAINED AFTER 48 HOURS, INCUBATION TO CONTINUE FOR 3 DAYS. 07/19/16 20:30 Blood Culture - Preliminary Blood - Peripheral Venous NO GROWTH OBTAINED AFTER 48 HOURS, INCUBATION TO CONTINUE FOR 3 DAYS. Code(s): N39.0 - URINARY TRACT INFECTION, SITE NOT SPECIFIED (6) Aortic root dilatation Assessment/Plan: OUTPATIENT MONITORING 4.5 CM Code(s): I77.810 - THORACIC AORTIC ECTASIA
[2016-07-22 10:25] LABS: BASOPHIL 0.5 % (0-2.0); EOSINOPHIL 1.8 % (0-4.5); MCH 28.5 pg (25.7-33.7); MCHC 33.2 g/dl (32.0-35.9); MEAN CELL VOLUME 85.7 fl (80-96); MEAN PLT VOLUME 9.2 fl (7.5-11.1); NEUTROPHILS 77.4 % (42.8-82.8); PLATELET COUNT 234 K/MM3 (134-434); RDW 15.7 % (11.9-15.9); WHITE BLOOD COUNT 9.8 K/mm3 (4.0-10.0)
[2016-07-22 10:41] LABS: CALCIUM 8.4 mg/dL (8.5-10.1)
--- NOTE | 2016-07-22 10:43 | PN ---
Progress Note, Physician History of Present Illness: OOB in chair No complaints offered Denies dysuria. No suprapubic or flank pain No c/o fever/ chills - Current Medication List Current Medications: Active Medications Acetaminophen (Tylenol -) 650 mg PO Q4H PRN PRN Reason: FEVER OR PAIN Aspirin (Asa -) 81 mg PO DAILY [facility] Last Admin: 07/22/16 09:23 Dose: 81 mg Ceftriaxone Sodium (Rocephin 1gm Ivpb (Pre-Docked)) 1 gm IVPB DAILY [facility] Last Admin: 07/22/16 09:23 Dose: 1 gm Clopidogrel Bisulfate (Plavix -) 75 mg PO DAILY [facility] Last Admin: 07/22/16 09:23 Dose: 75 mg Furosemide (Lasix -) 80 mg PO DAILY [facility] Last Admin: 07/22/16 09:23 Dose: 80 mg Heparin Sodium (Porcine) (Heparin -) 5,000 unit SQ BID [facility] Last Admin: 07/22/16 09:24 Dose: 5,000 unit Insulin Aspart (Novolog Vial Sliding Scale -) 1 vial SQ [facility] PRN Reason: Protocol Last Admin: 07/22/16 06:14 Dose: Not Given Insulin Detemir (Levemir Vial) 20 units SQ BID [facility] Last Admin: 07/22/16 09:24 Dose: 20 units Metoprolol Succinate (Toprol Xl -) 25 mg PO BID [facility] Last Admin: 07/22/16 09:24 Dose: 25 mg Rosuvastatin Calcium (Crestor -) 40 mg PO HS [facility] Last Admin: 07/21/16 21:49 Dose: 40 mg - Objective Vital Signs: Vital Signs Temperature 97.7 F 07/22/16 06:00 Pulse Rate 63 07/22/16 06:00 Respiratory Rate 20 07/22/16 06:00 Blood Pressure 166/80 07/22/16 06:00 O2 Sat by Pulse Oximetry (%) 98 07/21/16 21:00 Constitutional: Yes: No Distress Eyes: Yes: Conjunctiva Clear Cardiovascular: Yes: Regular Rate and Rhythm, S1, S2 Respiratory: Yes: CTA Bilaterally Gastrointestinal: Yes: Normal Bowel Sounds, Soft. No: Tenderness Labs: CBC, BMP 07/22/16 09:50 Assessment/Plan UTI E coli Fever/ leukocytosis - resolved Azotemia-improved Diabetes mellitus Substitute po levaquin 250mg qd x 7d
[2016-07-22 10:53] LABS: CREATININE 1.7 mg/dL (0.7-1.3)
--- NOTE | 2016-07-22 12:28 | PN ---
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: CC: dizziness No complaints today Feels dizziness is better No chest pain or dyspnea Current Medications Acetaminophen (Tylenol -) 650 mg PO Q4H PRN PRN Reason: FEVER OR PAIN Aspirin (Asa -) 81 mg PO DAILY [facility] Last Admin: 07/22/16 09:23 Dose: 81 mg Clopidogrel Bisulfate (Plavix -) 75 mg PO DAILY [facility] Last Admin: 07/22/16 09:23 Dose: 75 mg Furosemide (Lasix -) 80 mg PO DAILY [facility] Last Admin: 07/22/16 09:23 Dose: 80 mg Heparin Sodium (Porcine) (Heparin -) 5,000 unit SQ BID [facility] Last Admin: 07/22/16 09:24 Dose: 5,000 unit Insulin Aspart (Novolog Vial Sliding Scale -) 1 vial SQ ACHS [facility] PRN Reason: Protocol Last Admin: 07/22/16 11:06 Dose: Not Given Insulin Detemir (Levemir Vial) 20 units SQ BID [facility] Last Admin: 07/22/16 09:24 Dose: 20 units Levofloxacin (Levaquin -) 250 mg PO DAILY@0600 [facility] Metoprolol Succinate (Toprol Xl -) 25 mg PO BID [facility] Last Admin: 07/22/16 09:24 Dose: 25 mg Pneumococcal 13-Valent Conj Vacc (Prevnar 13 Syringe -) 0.5 ml IM .ONCE ONE Stop: 07/22/16 11:22 Rosuvastatin Calcium (Crestor -) 40 mg PO [facility] Last Admin: 07/21/16 21:49 Dose: 40 mg Vital Signs - 24 hr 07/21/16 07/21/16 07/21/16 14:00 18:00 21:00 Temperature 98 F 98.3 F Pulse Rate 68 62 Respiratory 18 18 18 Rate Blood Pressure 136/72 147/77 O2 Sat by Pulse 98 Oximetry (%) 07/21/16 07/22/16 07/22/16 22:00 02:00 06:00 Temperature 97.7 F 97.7 F 97.7 F Pulse Rate 62 65 63 Respiratory 18 18 20 Rate Blood Pressure 139/78 164/80 166/80 O2 Sat by Pulse Oximetry (%) 07/22/16 07/22/16 09:00 10:00 Temperature 97.4 F L Pulse Rate 73 Respiratory 20 Rate Blood Pressure 163/96 O2 Sat by Pulse 97 Oximetry (%) Intake & Output 07/20/16 07/21/16 07/22/16 07/23/16 07:59 07:59 07:59 07:59 Intake Total 460 500 Balance 460 500 Weight 138 lb 138 lb 6 oz 138 lb 2 oz Constitutional: Yes: No Distress Eyes: Yes: WNL HENT: Yes: WNL Neck: Yes: WNL Cardiovascular: Yes: WNL Respiratory: Yes: WNL Gastrointestinal: Yes: WNL Extremities: Yes: WNL Edema: No Wound/Incision: Yes: Other (Midline sternotomy well healed) Labs: CBC, BMP 07/22/16 09:50 07/22/16 09:50 Assessment/Plan 66 yo male Known CAD s/p 3V arterial conduit CABG in 03/2016 at [facility] [place] Now admitted with dizziness, decreased PO intake and increased urination with (+ ) UTI 1) Dizziness with vertigo symptoms -Likely related to UTI and ?pnemonia -Being treated with Abx -Can discontinue telemetry 2) (+) troponin (0.06) -low level and unlikely ACS with no chest pain -Has recent 3V CABG (PAPPAS to LAD, free radial to OM1 and free radial to OM3). Also with hx of LITA x 8 with multiple ISR --> maintained on chronic DAPT. -Last LVEF at [place] was 48% in 03/2016 --> 50-55% on office echo 06/2016. Prior outpatient diuresis regimen lasix 40 mg daily, but weight stable here on lasix 80 mg daily. Today 07/22 Cr slightly worse but still at baseline. Reassess tomorrow. -Continue asa, plavix and BB and statin 3) HTN -suboptimal control. Patient had recently been started on lisinopril, would resume. 4) CKD -Baseline Cr 1.98 at discharge from [place] in 03/2016 -Stable -Continue lasix
[2016-07-22] MEDS ORDERED: PNEUMOC 13-VAL CONJ-DIP CRM/PF 0.5 ML DISP.SYRIN IM ONE (17:30)
[2016-07-22] MEDS: ROSUVASTATIN CA 20 MG TABLET (FP) PO SCH (21:03)
[2016-07-23] MEDS ORDERED: LEVOFLOXACIN 250 MG TABLET (FP) PO SCH (06:00)
[2016-07-23] MEDS: INSULIN SLIDING SCALE (NOVOLOG) 1 VIAL SQ SCH (06:02)
[2016-07-23 07:03] VITALS: TEMP 97.5
[2016-07-23 07:07] LABS: CALCIUM 8.4 mg/dL (8.5-10.1); CREATININE 1.9 mg/dL (0.7-1.3)
[2016-07-23] MEDS: CLOPIDOGREL BISULFATE 75 MG TABLET (FP) PO SCH (08:59)
[2016-07-23] MEDS: ASPIRIN 81 MG CHEWABLE TABLETS PO SCH (08:59)
[2016-07-23] MEDS: METOPROLOL SUCCINATE 25 MG TAB.SR.24H (FP) PO SCH (08:59)
[2016-07-23] MEDS: HEPARIN NA (PORCINE) 5,000 UNITS/ML 1ML VIAL SQ SCH (09:01)
[2016-07-23] MEDS: INSULIN DETEMIR 100 UNITS/ML MDV SQ SCH (09:01)
--- NOTE | 2016-07-23 09:26 | DS ---
Physical Examination Vital Signs: Vital Signs Temperature 97.5 F L 07/23/16 06:00 Pulse Rate 63 07/23/16 06:00 Respiratory Rate 18 07/23/16 06:00 Blood Pressure 133/83 07/23/16 06:00 O2 Sat by Pulse Oximetry (%) 96 07/22/16 21:00 Labs: CBC, BMP 07/22/16 09:50 07/23/16 05:32 Discharge Summary Reason For Visit: DIABETES/ELEVATED TROPONIN Current Active Problems Aortic root dilatation (Acute) Diabetes (Acute) Elevated troponin (Acute) HTN (hypertension) (Acute) Pneumonia (Acute) UTI (urinary tract infection) (Acute) Uncontrolled diabetes mellitus (Acute) Hospital Course: 66-year-old male with a significant past medical history of diabetes, CHF, hypertension, hypercholesterolemia, vertigo, (compliant with medications), and presents to the emergency department with increased urination, lightheadedness, and generalized weakness for the last few days. The patient reports an increase in urination from his baseline, accompanied by increased thirst. He reports feeling like the room is spinning. He reports nausea for the last 4 days, and has not been eating secondary to the nausea. He reports associated constipation and chills. He reports his sugar levels have been high, but does not deviate from his baseline. The patient denies chest pain, shortness of breath, and headache. The patient denies fever, abdominal pain, vomit, and diarrhea. The patient denies dysuria and hematuria. He denies recent sick contacts or changes in medications. 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 Cardiovascular: Yes: CAD, HTN, Hyperlipdemia, [place] Gastrointestinal: Yes: GERD Endocrine: Yes: Diabetes Mellitus - Past Surgical History Past Surgical History: Yes: Stent - Problems (1) Pneumonia Assessment/Plan: NO EVIDENCE ON CT--OLD CHANGES CT OF CHEST--4.5 AORTIC ROOT ID CONSULT NOTED Code(s): J18.9 - PNEUMONIA, UNSPECIFIED ORGANISM (2) Diabetes Assessment/Plan: MONITOR BGM ADJUST INSULIN--LEVEMIR TO 20 BID ENDO Code(s): E11.9 - TYPE 2 DIABETES MELLITUS WITHOUT COMPLICATIONS (3) Elevated troponin Assessment/Plan: MONITOR EKG Code(s): R79.89 - OTHER SPECIFIED ABNORMAL FINDINGS OF BLOOD CHEMISTRY (4) Renal insufficiency Assessment/Plan: ON LASIX DECREASE TO 40--BMP ONE WEEK MONITOR CR 1.9 Code(s): N28.9 - DISORDER OF KIDNEY AND URETER, UNSPECIFIED (5) UTI (urinary tract infection) Assessment/Plan: IV ABX CULTURES Microbiology 07/19/16 20:36 Urine Culture - Final Urine - Urine Clean Catch Escherichia Coli 07/19/16 20:30 Blood Culture - Preliminary Blood - Peripheral Venous NO GROWTH OBTAINED AFTER 48 HOURS, INCUBATION TO CONTINUE FOR 3 DAYS. 07/19/16 20:30 Blood Culture - Preliminary Blood - Peripheral Venous NO GROWTH OBTAINED AFTER 48 HOURS, INCUBATION TO CONTINUE FOR 3 DAYS. Code(s): N39.0 - URINARY TRACT INFECTION, SITE NOT SPECIFIED (6) Aortic root dilatation Assessment/Plan: OUTPATIENT MONITORING 4.5 CM---F/U ECHO OUTPATIENT D/W PT Code(s): I77.810 - THORACIC AORTIC ECTASIA Condition: Improved - Instructions Referrals: Araceli Jara MD [Primary Care Provider] - Naomi Champion MD [Staff Physician] - 1 Week Disposition: HOME - Home Medications Comprehensive Discharge Medication List: Ambulatory Orders Aspirin [ASA -] 81 mg PO DAILY 07/19/16 Clopidogrel Bisulfate [Plavix -] 75 mg PO DAILY 07/19/16 Insulin Glargine,Hum.rec.anlog [Toujeo Solostar] 50 unit SQ DAILY 07/19/16 Insulin Lispro [Humalog] 10 unit SQ TID 07/19/16 Metoprolol Succinate [Toprol XL -] 25 mg PO BID 07/19/16 Rosuvastatin [Crestor -] 40 mg PO DAILY 07/19/16 Furosemide [Lasix -] 40 mg PO DAILY tablet 07/23/16 Levofloxacin [Levaquin -] 250 mg PO DAILY@0600 #10 tablet 07/23/16 Lisinopril [Prinivil] 5 mg PO DAILY #30 tablet 07/23/16
[2016-07-23] MEDS ORDERED: FUROSEMIDE 20 MG TABLET (FP) PO SCH (10:00)
[2016-07-23] MEDS ORDERED: LISINOPRIL 5 MG TABLET (FP) PO SCH (10:00)
--- NOTE | 2016-07-23 10:48 | PN ---
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: s: feels well, no cp sob palps dizzy o: Vital Signs Period Temp Pulse Resp BP Sys/Mcconnell Pulse Ox Last 24 Hr 97.5 F-98.0 F 62-64 18-18 131-162/71-88 96 nad no jvd rrr s1s2 no mrg cta bl nl eff no le e/c/c abd nt nd pos bs aaox3 no jaundice diaphoresis Current Medications Generic Name Dose Route Start Last Admin Trade Name Freq PRN Reason Stop Dose Admin Acetaminophen 650 mg 07/19/16 21:45 Tylenol - PO Q4H PRN FEVER OR PAIN Aspirin 81 mg 07/20/16 10:00 07/23/16 08:59 Asa - PO 81 mg DAILY PRATIK Administration Clopidogrel Bisulfate 75 mg 07/20/16 10:00 07/23/16 08:59 Plavix - PO 75 mg DAILY [facility] Administration Furosemide 60 mg 07/23/16 10:00 Lasix - PO DAILY [facility] Heparin Sodium (Porcine) 5,000 unit 07/19/16 22:00 07/23/16 09:01 Heparin - SQ 5,000 unit BID [facility] Administration Insulin Aspart 1 vial 07/19/16 22:00 07/23/16 06:02 Novolog Vial Sliding Scale - SQ Not Given ACHS [facility] Protocol Insulin Detemir 20 units 07/20/16 10:55 07/23/16 09:01 Levemir Vial SQ 20 units BID [facility] Administration Levofloxacin 250 mg 07/23/16 06:00 07/23/16 05:20 Levaquin - PO 250 mg DAILY@0600 [facility] Administration Lisinopril 5 mg 07/23/16 10:00 07/23/16 08:59 Prinivil PO 5 mg DAILY [facility] Administration Metoprolol Succinate 25 mg 07/19/16 22:00 07/23/16 08:59 Toprol Xl - PO 25 mg BID [facility] Administration Rosuvastatin Calcium 40 mg 07/20/16 22:00 07/22/16 21:03 Crestor - PO 40 mg HS [facility] Administration CBC, BMP 07/22/16 09:50 07/23/16 05:32 tele: sr Assessment/Plan 66 yo male Known CAD [place]p [place] [facility] [place] Now admitted with dizziness, decreased PO intake and increased urination with (+ ) UTI 1) Dizziness with vertigo symptoms -tele benign, no cardiac etiology suspected -Likely related to UTI -Being treated with Abx -Can discontinue telemetry 2) (+) troponin (0.06) -low level and unlikely ACS with no chest pain -Has recent 3V CABG (PAPPAS to LAD, free radial to OM1 and free radial to OM3). Also with hx of LITA x 8 with multiple ISR --> maintained on chronic DAPT. -Last LVEF at [place] was 48% in 03/2016 --> 50-55% on office echo 06/2016. Volume stable here on lasix 60 mg daily. -Continue asa, plavix and BB and statin 3) HTN -cont current meds 4) CKD -Baseline Cr 1.98 at discharge from [place] in 03/2016 -Stable -Continue lasix cardiac snea remains stable
[2016-07-23 11:32] VITALS: BP 136/72; PULSE 66
== END 2016-07-23 11:23 | disposition home or self-care (01) | DRG 569 ==
LOC: JER 19:23 → JERBED 21:57 → J4S 07-20 15:32
PROVIDERS: ADMIT Family Medicine; ATTEND Family Medicine
DX: N39.0 Urinary tract infection, site not specified (principal); J18.9 Pneumonia, unspecified organism; E11.65 Type 2 diabetes mellitus with hyperglycemia; N18.9 Chronic kidney disease, unspecified; E78.00 Pure hypercholesterolemia, unspecified; R42 Dizziness and giddiness; I25.10 Atherosclerotic heart disease of native coronary artery without angina pectoris; I25.2 Old myocardial infarction; K21.9 Gastro-esophageal reflux disease without esophagitis; G43.809 Other migraine, not intractable, without status migrainosus; I77.810 Thoracic aortic ectasia; I12.9 Hypertensive chronic kidney disease with stage 1 through stage 4 chronic kidney disease, or unspecified chronic kidney disease; Z95.1 Presence of aortocoronary bypass graft; Z95.5 Presence of coronary angioplasty implant and graft
CPT/HCPCS: 36415; 71010-TC; 71020-TC; 71250-TC; 80048; 80053; 80061; 81003; 81015; 82550; 83036; 83605; 83721; 83735; 83880; 84484; 85025; 87040; 87086; 87186; 87254; 87804; 90670; 93005; 93010; 99285-25; J1644

== ENCOUNTER 2017-06-07 16:01 | Emergency (ER) | payer OTHER ==
[2017-06-07 16:06] VITALS: TEMP 98.3; BMI 26.5
[2017-06-07] MEDS ORDERED: TAMSULOSIN HCL 0.4 MG CAP.ER.24H (FP) PO ONE (16:42)
[2017-06-07] MEDS ORDERED: TAMSULOSIN HCL 0.4 MG CAP.ER.24H (FP) ONE (16:46)
--- NOTE | 2017-06-07 16:51 | PDOC ---
History of Present Illness - General Chief Complaint: Urinary Problem Stated Complaint: URINE RETENTION Time Seen by Provider: 06/07/17 16:31 History Source: Patient Exam Limitations: No Limitations - History of Present Illness Initial Comments: 06/07/17 16:46 67 yr male with urinary hesitancy and frequency for 3 days. Pt has had same symptoms before, history of BPH. no abd pain no rectal pain neg fever or chills , no diarrhea. pt is able to urinate small amounts, denies blood. Timing/Duration: reports: constant Quality: reports: mild Abdominal Pain Onset Location: denies: RUQ, LUQ, RLQ, LLQ, epigastric, periumbilical, suprapubic, generalized abdomen, flank, unknown, other Past History - Past Medical History Allergies/Adverse Reactions: Allergies Allergy/AdvReac Type Severity Reaction Status Date / Time No Known Allergies Allergy Verified 06/07/17 16:06 Home Medications: Ambulatory Orders Aspirin [ASA -] 81 mg PO DAILY 07/19/16 Clopidogrel Bisulfate [Plavix -] 75 mg PO DAILY 07/19/16 Insulin Glargine,Hum.rec.anlog [Toujeo Solostar] 50 unit SQ DAILY 07/19/16 Insulin Lispro [Humalog] 10 unit SQ TID 07/19/16 Metoprolol Succinate [Toprol XL -] 25 mg PO BID 07/19/16 Rosuvastatin [Crestor -] 40 mg PO DAILY 07/19/16 Lisinopril [Prinivil] 5 mg PO DAILY #30 tablet 07/23/16 Sulfamethoxazole/Trimethoprim [Bactrim Ds Tablet] 1 each PO BID #14 tablet 06/07 Tamsulosin HCl [Flomax] 0.4 mg PO HS #7 cap.er.24h 06/07/17 Cardiac Disorders: Yes COPD: No Diabetes: Yes HTN: Yes Hypercholesterolemia: Yes Other medical history: BPH - Surgical History Cardiac Surgery: Yes (STENTS, BYPASS) - Immunization History Immunization Up to Date: Yes - Suicide/Smoking/Psychosocial Hx Smoking History: Former smoker Have you smoked in the past 12 months: No If you are a former smoker, when did you quit?: 35 YRS Information on smoking cessation initiated: No Hx Alcohol Use: No Drug/Substance Use Hx: No Substance Use Type: None Abd/GI Specific PMHX - Complaint Specific PMHX Colitis: No Diverticulitis: No Gall Bladder Disease: No GERD: No Hepatitis: No Irritable Bowel Synd (IBS): No Pancreatitis: No GI Ulcer Disease: No Review of Systems - Review of Systems Able to Perform ROS?: Yes Is the patient limited Puerto Rican proficient: No Constitutional: No: Symptoms Reported HEENTM: No: Symptoms Reported Respiratory: No: Symptoms reported Cardiac (ROS): No: Symptoms Reported ABD/GI: No: Symptoms Reported : Yes: Symptoms Reported, Frequency, Urgency. No: Flank Pain, Pain, Testicular Mass, Testicular Swelling, Lesions, Testicular Pain Musculoskeletal: No: Symptoms Reported Integumentary: No: Symptoms Reported Neurological: No: Symptoms reported *Physical Exam - Vital Signs Last Vital Signs Temp Pulse Resp BP Pulse Ox 98.3 F 91 H 20 213/114 99 06/07/17 16:02 06/07/17 16:02 06/07/17 16:02 06/07/17 16:02 06/07/17 16:02 - Physical Exam General Appearance: Yes: Nourished, Appropriately Dressed HEENT: positive: EOMI, ELIN, TMs Normal, Pharynx Normal Neck: positive: Supple Respiratory/Chest: positive: Lungs Clear, Normal Breath Sounds Cardiovascular: positive: Regular Rhythm, Regular Rate Gastrointestinal/Abdominal: positive: Normal Bowel Sounds, Soft. negative: Tender Male Genitalia: negative: discharge Lymphatic: negative: Adenopathy Musculoskeletal: positive: Normal Inspection Extremity: positive: Normal Capillary Refill, Normal Inspection, Normal Range of Motion Integumentary: positive: Normal Color, Dry, Warm Neurologic: positive: Fully Oriented, Alert, Normal Mood/Affect, Normal Response , Motor Strength 5/5 Medical Decision Making - Medical Decision Making 06/07/17 16:50 cc: urinary urgency and hesitancy no pain no nvd will r/o UTI will give flomax now pt refused [place] catheter 06/07/17 17:56 pt feels better would like to go home. dc inst given pt is aware to follow up this week with urology. pt understands the dc plan all questions asked and answered, pt agrees with plan. *DC/Admit/Observation/Transfer Diagnosis at time of Disposition: UTI (urinary tract infection) Qualifiers: Urinary tract infection type: site unspecified Hematuria presence: with hematuria Qualified Code(s): N39.0 - Urinary tract infection, site not specified - Discharge Dispostion Disposition: HOME Condition at time of disposition: Good - Prescriptions Prescriptions: Sulfamethoxazole/Trimethoprim [Bactrim Ds Tablet] 1 each PO BID #14 tablet Tamsulosin HCl [Flomax] 0.4 mg PO HS #7 cap.er.24h - Referrals Referrals: Zi Lewis MD [Staff Physician] - - Patient Instructions Additional Instructions: please follow with the urologist call tomorrow to set up appointment drink at least 2 liters of water a day take the antibiotic twice a day next dose tomorrow morning take the flomax at bedtime , next dose tomorrow any fever, chills vomiting diarrhea or any other complaints RETURN TO THE ER - Post Discharge Activity
[2017-06-07 17:12] LABS: URINE APPEARANCE CLOUDY; URINE BILIRUBIN NEGATIVE (NEGATIVE); URINE BLOOD 1+ (NEGATIVE); URINE COLOR YELLOW; URINE GLUCOSE (UA) 2+ (NEGATIVE); URINE KETONE NEGATIVE (NEGATIVE); URINE NITRITE POSITIVE (NEGATIVE); URINE UROBILINOGEN NEGATIVE mg/dL (0.2-1.0)
[2017-06-07 17:15] LABS: URINE PROTEIN 2+ (NEGATIVE)
[2017-06-07 17:17] LABS: URINE BACTERIA MODERATE /hpf (NONE SEEN); URINE MUCUS RARE; URINE RBC 6 /hpf (0-3); URINE WBC 1073 /hpf (3-5)
[2017-06-07] MEDS ORDERED: SULFAMETHOXAZOLE/TRIMETHOPRIM 800MG/160MG D.S. TABLET PO ONE (17:18)
[2017-06-07] MEDS ORDERED: SULFAMETHOXAZOLE/TRIMETHOPRIM 800MG/160MG D.S. TABLET ONE (17:28)
[2017-06-07 17:47] VITALS: BP 180/90; PULSE 76
[2017-06-07 21:44] LABS: URINE LEUK ESTERASE 2+ (NEGATIVE)
== END 2017-06-07 17:48 | disposition home or self-care (01) ==
LOC: JER 16:01
DX: N39.0 Urinary tract infection, site not specified (principal); N40.0 Benign prostatic hyperplasia without lower urinary tract symptoms; E11.9 Type 2 diabetes mellitus without complications; Z79.4 Long term (current) use of insulin; E78.00 Pure hypercholesterolemia, unspecified; Z87.891 Personal history of nicotine dependence; I25.10 Atherosclerotic heart disease of native coronary artery without angina pectoris; Z95.1 Presence of aortocoronary bypass graft; Z95.5 Presence of coronary angioplasty implant and graft
CPT/HCPCS: 81003; 81015; 87086; 87186; 99282-25

== ENCOUNTER 2017-12-24 21:43 | Inpatient (IN) | payer OTHER ==
--- NOTE | 2017-12-24 22:00 | PDOC ---
Rapid Medical Evaluation Chief Complaint: Wound Time Seen by Provider: 12/24/17 21:54 Medical Evaluation: Allergies Allergy/AdvReac Type Severity Reaction Status Date / Time No Known Allergies Allergy Verified 06/07/17 16:06 12/24/17 21:54 c/o b/l foot infection for a while now bleeding as per patient. patient was sent by Dr. Dumas for admission for foot infection. patient also reports taht his sugars have been 400s today PE; patient alert ox3. no redness of swelling to lower extremity A: foot infection. P: cbc cmp cardiac acetone VBG patient to the ER for further management of care. Discharge Disposition - Referrals Referrals: Ishan Dumas MD [Primary Care Provider] - - Patient Instructions - Post Discharge Activity
[2017-12-24 22:45] LABS: BASO % 0.7 % (0-2.0); EOS % 1.6 % (0-4.5); HEMATOCRIT 38.3 % (35.4-49); HEMOGLOBIN 12.7 GM/dL (11.7-16.9); LYMPH % 12.3 % (8-40); MCH 28.3 pg (25.7-33.7); MCHC 33.1 g/dl (32.0-35.9); MEAN CELL VOLUME 85.5 fl (80-96); MEAN PLT VOLUME 10.1 fl (7.5-11.1); MONO % 10.2 % (3.8-10.2); NEUT % 75.2 % (42.8-82.8); PLATELET COUNT 165 K/MM3 (134-434); RBC 4.48 M/mm3 (4.00-5.60); RDW 15.3 % (11.9-15.9)
[2017-12-24 22:46] LABS: VENOUS PH 7.34 (7.32-7.42)
[2017-12-24 22:47] LABS: VENOUS PC02 42.7 mmHg (38-52)
--- NOTE | 2017-12-24 22:50 | PDOC ---
History of Present Illness - General Chief Complaint: Wound Stated Complaint: DIABETIC FOOT INFECTION Time Seen by Provider: 12/24/17 21:54 History Source: Patient - History of Present Illness Initial Comments: 12/25/17 01:02 [id number] male with the bilateral great toe wound with right great toe with serosanguineous foul-smelling drainage. As per patient patient has been running blood sugar in the high 400s. Patient was seen by Dr. Goncalves today and was advised to come to the emergency room for admission to the hospital. Patient denies fevers/chills/nausea/vomiting. Patient denies abdominal pain Past History - Past Medical History Allergies/Adverse Reactions: Allergies Allergy/AdvReac Type Severity Reaction Status Date / Time No Known Allergies Allergy Verified 12/24/17 21:58 Home Medications: Ambulatory Orders Aspirin [ASA -] 81 mg PO DAILY 07/19/16 Clopidogrel Bisulfate [Plavix -] 75 mg PO DAILY 07/19/16 Insulin Glargine,Hum.rec.anlog [Toujeo Solostar] 50 unit SQ DAILY 07/19/16 Insulin Lispro [Humalog] 10 unit SQ TID 07/19/16 Metoprolol Succinate [Toprol XL -] 25 mg PO BID 07/19/16 Rosuvastatin [Crestor -] 40 mg PO DAILY 07/19/16 Lisinopril [Prinivil] 5 mg PO DAILY #30 tablet 07/23/16 Sulfamethoxazole/Trimethoprim [Bactrim Ds Tablet] 1 each PO BID #14 tablet 06/07 Tamsulosin HCl [Flomax] 0.4 mg PO HS #7 cap.er.24h 06/07/17 Cardiac Disorders: Yes COPD: No Diabetes: Yes HTN: Yes Hypercholesterolemia: Yes - Surgical History Cardiac Surgery: Yes (STENTS, BYPASS) - Immunization History Immunization Up to Date: Yes - Suicide/Smoking/Psychosocial Hx Smoking History: Never smoked Have you smoked in the past 12 months: No If you are a former smoker, when did you quit?: 35 YRS Information on smoking cessation initiated: No Hx Alcohol Use: No Drug/Substance Use Hx: No Substance Use Type: None Review of Systems - Review of Systems Able to Perform ROS?: Yes Is the patient limited Estonian proficient: No Constitutional: No: Symptoms Reported, See HPI, Chills, Diaphoresis, Fever, Loss of Appetite, Malaise, Night Sweats, Weakness, Weight Stable, Unintentional Wgt. Loss, Unexplained wgt Loss, Other Integumentary: Yes: Other (bilateral toe wound) *Physical Exam - Vital Signs Last Vital Signs Temp Pulse Resp BP Pulse Ox 98.2 F 73 18 182/102 97 12/24/17 21:55 12/24/17 21:55 12/24/17 21:55 12/24/17 21:55 12/24/17 21:55 - Physical Exam General Appearance: Yes: Appropriately Dressed Respiratory/Chest: positive: Lungs Clear, Normal Breath Sounds Extremity: positive: Other (right great toe wound drainage serosanginous foul smeeling drainage) Integumentary: positive: Normal Color, Dry, Warm Neurologic: positive: Fully Oriented, Alert, Normal Mood/Affect ED Treatment Course - LABORATORY CBC & Chemistry Diagram: 12/24/17 22:20 12/24/17 22:20 - ADDITIONAL ORDERS Additional order review: Laboratory Results 12/24/17 22:20 VBG pH 7.34 POC VBG pCO2 42.7 POC VBG pO2 29.0 Mixed VBG HCO3 22.4 - RADIOLOGY Radiology Studies Ordered: Category Date Time Status CHEST PA & LAT [RAD] Stat Radiology 12/24/17 21:58 Ordered Medical Decision Making - Medical Decision Making 12/25/17 01:24 A: diabetic foot infection P: cbc cmp blood culture vanco / zosyn *DC/Admit/Observation/Transfer Diagnosis at time of Disposition: Diabetic foot infection, Hyperglycemia - Discharge Dispostion Decision to Admit order: Yes - Referrals Referrals: Ishan Dumas MD [Primary Care Provider] - - Patient Instructions - Post Discharge Activity
[2017-12-24 22:58] LABS: INR 0.96 (0.82-1.09); PROTHROMBIN TIME (PATIENT) 10.9 SEC (9.7-13.0)
[2017-12-24 23:07] LABS: ALBUMIN 3.4 g/dl (3.4-5.0); ANION GAP 11 (8-16); BLOOD UREA NITROGEN 62 mg/dL (7-18); CALCIUM 8.4 mg/dL (8.5-10.1); CHLORIDE 101 mmol/L (98-107); CO2 23 mmol/L (21-32); MAGNESIUM 2.1 mg/dL (1.8-2.4); POTASSIUM 4.5 mmol/L (3.5-5.1); SODIUM 135 mmol/L (136-145)
[2017-12-24 23:13] LABS: ALK PHOS 63 U/L (45-117); BILIRUBIN,TOTAL 0.3 mg/dL (0.2-1.0); CREATININE 2.7 mg/dL (0.7-1.3); SGOT/AST 16 U/L (15-37); SGPT/ALT 28 U/L (12-78); TOT PROT 7.6 g/dl (6.4-8.2)
[2017-12-24 23:14] LABS: GLUCOSE,RANDOM 318 mg/dL (74-106)
[2017-12-24] MEDS ORDERED: PIPERACILLIN/TAZOB 3.375 GM 3.375 GM in DEXTROSE 5%-WATER - 50 ML IVPB ONE (23:27)
[2017-12-24] MEDS ORDERED: VANCOMYCIN 1,000 MG in DEXTROSE 5%-WATER - 250 ML IVPB ONE (23:27)
[2017-12-24] MEDS ORDERED: SODIUM CHLORIDE 250 ML IV STA (23:28)
[2017-12-24] MEDS ORDERED: PIPERACILLIN/TAZOB 3.375 GM 3.375 GM/50 ML BAG IVPB ONE (23:35)
[2017-12-25] MEDS ORDERED: VANCOMYCIN 1 GRAM (PRE-DOCKED) 1,000 MG/250 ML BAG IVPB ONE (01:01)
--- NOTE | 2017-12-25 03:07 | HP ---
CHIEF COMPLAINT: hyperglycemia, foot wound PCP: Piter HISTORY OF PRESENT ILLNESS: This is a 67 year old male with a past medical history of DM, HTN, HLD, CAD who presented to the ED from his PCP office for foot wounds. He states he has had them for months. He denies pain. ER course was notable for: (1) WBC 9.0 (2) glucose 318 Recent Travel: pt denies PAST MEDICAL HISTORY: DM, HTN, HLD, CAD PAST SURGICAL HISTORY: CABG 2016 or 2017 stents prior to cabg Social History: Smoking: pt denies Alcohol: pt denies Drugs: pt denies Family History: mother age 70, liver disease father unkown sister alive with DM Allergies No Known Allergies Allergy (Verified 12/24/17 21:58) HOME MEDICATIONS: 3 Medication Instructions Recorded Aspirin [ASA -] 81 mg PO DAILY 07/19/16 Clopidogrel Bisulfate [Plavix -] 75 mg PO DAILY 07/19/16 Insulin Glargine,Hum.rec.anlog 50 unit SQ DAILY 07/19/16 [Toujeo Solostar] Insulin Lispro [Humalog] 10 unit SQ TID 07/19/16 Metoprolol Succinate [Toprol XL -] 25 mg PO BID 07/19/16 Rosuvastatin [Crestor -] 40 mg PO DAILY 07/19/16 Lisinopril [Prinivil] 5 mg PO DAILY #30 tablet 07/23/16 Sulfamethoxazole/Trimethoprim 1 each PO BID #14 tablet 06/07/17 [Bactrim Ds Tablet] Tamsulosin HCl [Flomax] 0.4 mg PO HS #7 cap.er.24h 06/07/17 REVIEW OF SYSTEMS CONSTITUTIONAL: Absent: fever, chills, diaphoresis, generalized weakness, malaise, loss of appetite, weight change HEENT: Absent: rhinorrhea, nasal congestion, throat pain, throat swelling, difficulty swallowing, mouth swelling, ear pain, eye pain, visual changes CARDIOVASCULAR: Absent: chest pain, syncope, palpitations, irregular heart rate, lightheadedness , peripheral edema RESPIRATORY: Absent: cough, shortness of breath, dyspnea with exertion, orthopnea, wheezing, stridor, hemoptysis GASTROINTESTINAL: Absent: abdominal pain, abdominal distension, nausea, vomiting, diarrhea, constipation, melena, hematochezia GENITOURINARY: Absent: dysuria, frequency, urgency, hesitancy, hematuria, flank pain, genital pain MUSCULOSKELETAL: Absent: myalgia, arthralgia, joint swelling, back pain, neck pain SKIN: Present: foot wounds Absent: rash, itching, pallor HEMATOLOGIC/IMMUNOLOGIC: Absent: easy bleeding, easy bruising, lymphadenopathy, frequent infections ENDOCRINE: Absent: unexplained weight gain, unexplained weight loss, heat intolerance, cold intolerance NEUROLOGIC: Absent: headache, focal weakness or paresthesias, dizziness, unsteady gait, seizure, mental status changes, bladder or bowel incontinence PSYCHIATRIC: Absent: anxiety, depression, suicidal or homicidal ideation, hallucinations. PHYSICAL EXAMINATION Vital Signs - 24 hr 3 12/24/17 12/25/17 21:55 01:40 Temperature 98.2 F 98.4 F Pulse Rate 73 Pulse Rate [ 69 Left Radial] Respiratory 18 19 Rate Blood Pressure 182/102 Blood Pressure 193/76 [Right Arm] O2 Sat by Pulse 97 95 Oximetry (%) GENERAL: Awake, alert, and fully oriented, in no acute distress. HEAD: Normal with no signs of trauma. EYES: Pupils equal, round and reactive to light, extraocular movements intact, sclera anicteric, conjunctiva clear. No lid lag. EARS, NOSE, THROAT: Ears normal, nares patent, oropharynx clear without exudates. Moist mucous membranes. NECK: Normal range of motion, supple without lymphadenopathy, JVD, or masses. LUNGS: Breath sounds equal, clear to auscultation bilaterally. No wheezes, and no crackles. No accessory muscle use. HEART: Regular rate and rhythm, normal S1 and S2 without murmur, rub or gallop. ABDOMEN: Soft, nontender, not distended, normoactive bowel sounds, no guarding, no rebound, no masses. No hepatomegaly or splenomegaly. MUSCULOSKELETAL: Normal range of motion at all joints. No bony deformities or tenderness. No CVA tenderness. UPPER EXTREMITIES: 2+ pulses, warm, well-perfused. No cyanosis. No clubbing. No peripheral edema. LOWER EXTREMITIES: 2+ pulses, warm, well-perfused. No calf tenderness. No peripheral edema. NEUROLOGICAL: Cranial nerves II-XII intact. Normal speech. Normal gait. PSYCHIATRIC: Cooperative. Good eye contact. Appropriate mood and affect. SKIN: Warm, dry, normal turgor, no rashes or lesions noted, normal capillary refill. left foot with callous to medial aspect of 1st MIP, surrounding skin with slight erythema, + open wound to plantar aspect of wound, mod serosanguinous drainage, wound edges macerated, also with callous to lateral aspect of 5MIP area, no wound or erythema. RIght foot with similar callouses, no erythema or open wounds. Also noted with callouses to left foot dorsal aspect 2nd, 3rd distal PIP. Laboratory Results - last 24 hr 3 12/24/17 12/24/17 12/24/17 22:20 22:20 22:20 WBC 9.0 RBC 4.48 Hgb 12.7 Hct 38.3 MCV 85.5 MCH 28.3 MCHC 33.1 RDW 15.3 Plt Count 165 D MPV 10.1 Absolute Neuts (auto) 6.8 Neutrophils % 75.2 Lymphocytes % 12.3 Monocytes % 10.2 Eosinophils % 1.6 Basophils % 0.7 Nucleated RBC % 0 PT with INR 10.90 INR 0.96 VBG pH 7.34 POC VBG pCO2 42.7 POC VBG pO2 29.0 Mixed VBG HCO3 22.4 Sodium 135 L Potassium 4.5 Chloride 101 Carbon Dioxide 23 Anion Gap 11 BUN 62 H D Creatinine 2.7 H D Creat Clearance w eGFR 23.76 Random Glucose 318 H* D Lactic Acid 0.3 Calcium 8.4 L Magnesium 2.1 Total Bilirubin 0.3 AST 16 D ALT 28 D Alkaline Phosphatase 63 Creatine Kinase 148 Troponin I < 0.02 Total Protein 7.6 D Albumin 3.4 D Acetone, Qual Negative ASSESSMENT/PLAN: 67yM with PMH DM, HTN, HLD, CAD, CABG, stents presented to the Ed with foot wound and elevated sugar. diabetic foot ulcer - given vanc/zosyn in ED, will give one more dose vanc at 6am, renal dose 2.25g - ID consult - podiatry consult FRANKI - Cr 2.7 up from baseline 1.7-1.9 - trial gentle IV hydration - renal consult if not improving - tighter glycemic control required DM- with hyperglycemia - Pt is unclear how much insulin he takes. He told the nurse it doesn't work for him, so he doesn't take it. - will restart pt on levemir 20 BID (his dose when he was here one year ago) - pt may also be taking 10u Novolog with meals, same ordered, monitor BGM and adjust insulin. - BGM AC/HS with novolog sliding scale HTN/HLD/CAD - cont home toprol, crestor, asa, plavix DVT PPX - heparin deferred, reassess if stay exceeds 48h FEN - NS @ 75cc/hr - BMP in am - diabetic/low sodium diet in am Dispo: pt currently requires further observation for management of his emergent condition. Visit type - Emergency Visit Emergency Visit: Yes ED Registration Date: 12/24/17 Care time: The patient presented to the Emergency Department on the above date and was hospitalized for further evaluation of their emergent condition. - New Patient This patient is new to me today: Yes Date on this admission: 12/25/17 - Critical Care Critical Care patient: No Hospitalist Screening - Colonoscopy Questionnaire Colonoscopy Questionnaire: Colonoscopy Questionnaire - Patient: 50 - 75 years old and never had a screening colonoscopy: No History of colon or rectal polyps, or CA: No History of IBD, Crohn's disease or UC: No History of abdominal radiation therapy as a child: No - Relative: 1 with colon or rectal CA, or polyps at age 60 or younger: Unknown Colon or rectal CA diagnosed at age 45 or younger: Unknown Multiple relatives with colon or rectal CA: Unknown - Outcome: Screening Result: Negative Screen
[2017-12-25] MEDS ORDERED: SODIUM CHLORIDE 1,000 ML IV SCH (03:30)
[2017-12-25] MEDS ORDERED: INSULIN (NOVOLOG) ASPART 100 UNITS/ML 10ML VIAL SQ ONE (04:00)
[2017-12-25] MEDS ORDERED: INSULIN (NOVOLOG) ASPART 100 UNITS/ML 10ML VIAL ONE ×2 (04:11→11:14)
[2017-12-25] MEDS ORDERED: PIPERACILLIN/TAZOBACTAM 2.25 GM VIAL IVPB ONE ×4 (05:05→21:41)
[2017-12-25] MEDS ORDERED: DEXTROSE 5%-WATER - 50 ML IVPB ONE ×4 (05:05→21:42)
[2017-12-25] MEDS ORDERED: PIPERACILLIN/TAZOB 2.25 GM 2.25 GM in DEXTROSE 5%-WATER - 50 ML IVPB ONE (06:00)
[2017-12-25] MEDS ORDERED: PIPERACILLIN/TAZOB 3.375 GM 3.375 GM in DEXTROSE 5%-WATER - 50 ML IVPB ONE (06:00)
[2017-12-25] MEDS: INSULIN (LEVEMIR) 100 UNITS/ML UNITS SQ SCH ×2 (06:17→21:45)
[2017-12-25] MEDS: INSULIN SLIDING SCALE (NOVOLOG) 1 VIAL SQ SCH ×3 (06:18→17:04)
[2017-12-25] MEDS: INSULIN (NOVOLOG) ASPART 100 UNITS/ML 10ML VIAL SQ SCH ×2 (07:05→11:33)
[2017-12-25 07:43] LABS: BASO % 0.7 % (0-2.0); EOS % 2.6 % (0-4.5); HEMATOCRIT 33.3 % (35.4-49); HEMOGLOBIN 11.3 GM/dL (11.7-16.9); LYMPH % 14.3 % (8-40); MEAN CELL VOLUME 85.3 fl (80-96); MEAN PLT VOLUME 9.8 fl (7.5-11.1); MONO % 11.7 % (3.8-10.2); NEUT % 70.7 % (42.8-82.8); PLATELET COUNT 133 K/MM3 (134-434); RBC 3.91 M/mm3 (4.00-5.60); RDW 14.9 % (11.9-15.9); WHITE BLOOD COUNT 7.1 K/mm3 (4.0-10.0)
--- NOTE | 2017-12-25 08:04 | PN ---
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: ID Poorly adherent diabetic on insulin admitted with Serosanguinus drainage foul smelling from the right great toe ulcer with large hypertrophic callous on the great toe no cellullits Smaller calluses on the left great toe Selected Entries 12/25/17 07:00 Temperature 98 F Pulse Rate 62 Respiratory 18 Rate Blood Pressure 153/68 Advise Podiatric consult for removal of callous and debridment Empiric Zosyn adjusted Cr Cl Imaging of toe if podiatry feels needed Shanika CHAVEZ Problem List - Problems (1) Diabetic foot infection Code(s): E11.628 - TYPE 2 DIABETES MELLITUS WITH OTHER SKIN COMPLICATIONS; L08.9 - LOCAL INFECTION OF THE SKIN AND SUBCUTANEOUS TISSUE, UNSP (2) Diabetes mellitus, insulin dependent (IDDM), uncontrolled Code(s): E10.65 - TYPE 1 DIABETES MELLITUS WITH HYPERGLYCEMIA
--- NOTE | 2017-12-25 08:48 | EKG ---
Test Reason : Blood Pressure : / mmHG Vent. 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
--- NOTE | 2017-12-25 08:54 | CONS ---
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 He has no fever or chills and was empirically treated for an infected ulcer that had serosanguineous drainage, foul smelling, from the right great toe noted on admission now. PAST MEDICAL HISTORY: Includes diabetes, hypertension, hyperlipidemia, coronary artery disease, coronary artery bypass graft, coronary stents. MEDICATIONS: Aspirin, Plavix, insulin, metoprolol, Crestor, Prinivil, Flomax. ALLERGIES: None known. SOCIAL HISTORY: Nonsmoker. Former heavy alcohol use. FAMILY HISTORY: Mother , chronic liver disease. Father medical history unknown. Sister alive, with diabetes. REVIEW OF SYSTEMS: Respiratory: No cough, shortness of breath. Cardiac: No chest pain, palpitations, syncope. Gastrointestinal: No abdominal pain, nausea, vomiting, diarrhea. Genitourinary: No dysuria, hematuria, urinary frequency. PHYSICAL EXAMINATION: General: He was a well-nourished appearing male in no acute distress. Vital Signs: The temperature 98, pulse 62, blood pressure 153/68, respirations 18. Neck: Supple, without adenopathy. Lungs: Clear to percussion and auscultation. Heart: S1, S2. Regular rhythm without audible murmur or gallop. Abdomen: Positive bowel sounds, soft, nontender, no organomegaly, no hepatosplenomegaly. Extremities: Revealed a hypertrophic large callus of the medial aspect of the right great toe. Adjacent to this was a plantar great toe ulcer. No surrounding erythema was noted. Moderate serosanguineous drainage noted in previous notes, though I did not see this now. Two smaller hypertrophic calluses present on the left great toe which did grossly not appear infected. LABORATORY: BUN 62, creatinine 2.7, glucose 318. Liver enzymes within normal limits. Albumin of 3.4. INR 0.96. White count of 9000, hemoglobin 12.7, platelets of 165 and 133. Two sets of blood cultures currently pending. ASSESSMENT: A 67-year-old poorly adherent diabetic with a history of alcoholism, presents with large hypertrophic callus of the great toe, poorly controlled blood sugar, and plantar ulcer with foul-smelling serosanguineous drainage noted. Agree with empiric antibiotics for diabetic soft tissue with probable polymicrobial organisms, aerobic and anaerobic. Agree with Zosyn 2.25 g adjusted for creatinine clearance. Received a dose of vancomycin. Needs podiatric consult for anticipated debridement and removal of callus, further imaging depending on podiatry assessment for deeper space infection/osteomyelitis. ESR, sedimentation rate, hepatitis C serology, HIV. BRAIN WU M.D. [id number]
[2017-12-25] MEDS ORDERED: ROSUVASTATIN CA 10 MG TABLET (FP) ONE (09:22)
[2017-12-25 09:23] LABS: ANION GAP 10 (8-16); BLOOD UREA NITROGEN 46 mg/dL (7-18); CALCIUM 7.8 mg/dL (8.5-10.1); CHLORIDE 108 mmol/L (98-107); CO2 22 mmol/L (21-32); CREATININE 2.1 mg/dL (0.7-1.3); GLUCOSE,RANDOM 150 mg/dL (74-106); MAGNESIUM 2.2 mg/dL (1.8-2.4); PHOSPHOROUS 3.4 mg/dL (2.5-4.9); POTASSIUM 3.9 mmol/L (3.5-5.1); SODIUM 140 mmol/L (136-145)
[2017-12-25] MEDS: LISINOPRIL 5 MG TABLET (FP) PO SCH (09:24)
[2017-12-25] MEDS: CLOPIDOGREL BISULFATE 75 MG TABLET (FP) PO SCH (09:24)
[2017-12-25] MEDS: metoPROLOL SUCCINATE 25 MG TAB.SR.24H (FP) PO SCH ×2 (09:24→21:45)
[2017-12-25] MEDS: PIPERACILLIN/TAZOB 2.25 GM 2.25 GM in DEXTROSE 5%-WATER - 50 ML IVPB SCH ×3 (09:24→21:44)
[2017-12-25] MEDS: ROSUVASTATIN CA 20 MG TABLET (FP) PO SCH (09:24)
[2017-12-25] MEDS: ASPIRIN 81 MG CHEWABLE TABLETS PO SCH (09:24)
--- NOTE | 2017-12-25 11:19 | CONSULT ---
Consult - text type - Consultation Consultation Note: Patient is a diabetic for over 10 years. Sent by PMD for infected big toes b/l feet. States he has had wounds for months over 3 with no tx. vss, tmax=98 dp 2/4 b/l, pt .5/4 b/l, +grade 2-3 wounds b/l hallux, +b/l ulcerations of medial big toes. -drainage, -mal odor, +localized cellulitis grade 2-3 wounds b/l big toes r/o om Santyl to wounds for now. MRI ordered. Hgba1c ordered. Vascular consult. ID and endocrine already ordered. Will follow.
--- NOTE | 2017-12-25 11:40 | PN ---
Progress Note, Physician Chief Complaint: patient seen and examined - Current Medication List Current Medications: Active Medications Aspirin (Asa -) 81 mg PO DAILY [facility] Last Admin: 12/25/17 09:24 Dose: 81 mg Clopidogrel Bisulfate (Plavix -) 75 mg PO DAILY [facility] Last Admin: 12/25/17 09:24 Dose: 75 mg Collagenase (Santyl -) 1 applic TP DAILY [facility] Sodium Chloride (Normal Saline -) 1,000 mls @ 75 mls/hr IV ASDIR [facility] Last Admin: 12/25/17 04:13 Dose: 75 mls/hr Piperacillin Sod/Tazobactam (Sod 2.25 gm/ Dextrose) 50 mls @ 100 mls/hr IVPB Q6H-IV [facility]; Protocol Last Admin: 12/25/17 09:24 Dose: 100 mls/hr Insulin Aspart (Novolog Vial Sliding Scale -) [address] [facility]; Protocol Insulin [facility]art (Nov[facility] Vial Sliding Scale -[facility] Protocol Last Admin: 12/25/17 11:17 Dose: 2 units Insulin Aspart (Novolog Vial) 10 units SQ TIDAC [facility] Last Admin: 12/25/17 11:33 Dose: Not Given Insulin Detemir (Levemir Vial) 20 units SQ BID@0700,2200 [facility] Last Admin: 12/25/17 06:17 Dose: 20 units Lisinopril (Prinivil) 5 mg PO DAILY [facility] Last Admin: 12/25/17 09:24 Dose: 5 mg Metoprolol Succinate (Toprol Xl -) 25 mg PO BID [facility] Last Admin: 12/25/17 09:24 Dose: 25 mg Rosuvastatin Calcium (Crestor -) 40 mg PO DAILY [facility] Last Admin: 12/25/17 09:24 Dose: 40 mg Tamsulosin HCl (Flomax -) 0.[address] [facility] - Objective Vital Signs: Vital Signs Temperature 98 F 12/25/17 07:00 Pulse Rate 62 12/25/17 07:00 Respiratory Rate 18 12/25/17 07:00 Blood Pressure 153/68 12/25/17 07:00 O2 Sat by Pulse Oximetry (%) 95 12/25/17 01:40 Constitutional: Yes: Calm Cardiovascular: Yes: Regular Rate and Rhythm, S1, S2 Respiratory: Yes: CTA Bilaterally Gastrointestinal: Yes: Normal Bowel Sounds, Soft Extremities: Yes: Other (hypertrophic callous of the big toes bilaterally noted with yellowish discharge) Labs: CBC, BMP 12/25/17 07:10 12/25/17 07:10 INR, PTT INR 0.96 (0.82-1.09) 12/24/17 22:20 Problem List - Problems (1) Diabetic foot infection Assessment/Plan: iv abx ID and podiatry on board glycemic control MRI of foot vascular consult dvt ppx Code(s): E11.628 - TYPE 2 DIABETES MELLITUS WITH OTHER SKIN COMPLICATIONS; L08.9 - LOCAL INFECTION OF THE SKIN AND SUBCUTANEOUS TISSUE, UNSP (2) BPH (benign prostatic hypertrophy) Assessment/Plan: flomax Code(s): N40.0 - BENIGN PROSTATIC HYPERPLASIA WITHOUT LOWER URINRY TRACT SYMP Qualifiers: Lower urinary tract symptom presence: symptoms present Qualified Code(s): N40.1 - Benign prostatic hyperplasia with lower urinary tract symptoms (3) CAD (coronary artery disease) Assessment/Plan: aspirin,plavix,metoprolol and crestor check lipid profile Code(s): I25.10 - ATHSCL HEART DISEASE OF [place] CORONARY ARTERY W/O ANG PCTRS
[2017-12-25] MEDS ORDERED: hydrALAZINE HCL 25 MG TABLET (FP) PO SCH (12:30)
[2017-12-25] MEDS: amLODIPine BESYLATE 10 MG TABLET (FP) PO SCH (12:43)
--- NOTE | 2017-12-25 14:31 | CONSULT ---
Consult Consult Specialty:: Nephrology Reason for Consultation:: CKD - History of Present Illness Chief Complaint: bilateral toe pain History of Present Illness: Pt is a 67 year old male with pmhx of CKD and DM who presents to the ER with right great toe pain and drainage. I was called to evaluate him for elevated creatinine. He denies history of CKD however has multiple abnormal creatinine values. He has history of DM that is poorly controlled as he says that his blood sugar is often in the 400s. He denies fevers or chills. He denies dysuria or hematuria. 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: Yes: Migraine Cardio/Vascular: Yes: CAD, HTN, Hyperlipdemia, [place] Gastrointestinal: Yes: GERD Renal/: Yes: Renal Inusuff Endocrine: Yes: Diabetes Mellitus - Past Surgical History Past Surgical History: Yes: Stent - Alcohol/Substance Use Hx Alcohol Use: No - Smoking History Smoking history: Never smoked Have you smoked in the past 12 months: No If you are a former smoker, when did you quit?: 35 YRS Home Medications - Allergies Allergies/Adverse Reactions: Allergies Allergy/AdvReac Type Severity Reaction Status Date / Time No Known Allergies Allergy Verified 12/24/17 21:58 - Home Medications Home Medications: Ambulatory Orders Aspirin [ASA -] 81 mg PO DAILY 07/19/16 Clopidogrel Bisulfate [Plavix -] 75 mg PO DAILY 07/19/16 Insulin Glargine,Hum.rec.anlog [Cal Solostar] 50 unit SQ DAILY 07/19/16 Insulin Lispro [Humalog] 10 unit SQ TID 07/19/16 Metoprolol Succinate [Toprol XL -] 25 mg PO BID 07/19/16 Rosuvastatin [Crestor -] 40 mg PO DAILY 07/19/16 Lisinopril [Prinivil] 5 mg PO DAILY #30 tablet 07/23/16 Sulfamethoxazole/Trimethoprim [Bactrim Ds Tablet] 1 each PO BID #14 tablet 06/07 Tamsulosin HCl [Flomax] 0.4 mg PO HS #7 cap.er.24h 06/07/17 Family Disease History - Family Disease History Family History: Denies Review of Systems - Review of Systems Constitutional: reports: No Symptoms Eyes: reports: No Symptoms HENT: reports: No Symptoms Neck: reports: No Symptoms Cardiovascular: reports: No Symptoms Respiratory: reports: No Symptoms Gastrointestinal: reports: No Symptoms Genitourinary: reports: No Symptoms Musculoskeletal: reports: No Symptoms Integumentary: reports: No Symptoms Neurological: reports: No Symptoms Endocrine: reports: No Symptoms Hematology/Lymphatic: reports: No Symptoms Psychiatric: reports: No Symptoms Physical Exam Vital Signs: Vital Signs Temperature 97.9 F 12/25/17 11:00 Pulse Rate 55 L 12/25/17 11:00 Respiratory Rate 18 12/25/17 11:00 Blood Pressure 171/77 12/25/17 11:00 O2 Sat by Pulse Oximetry (%) 95 12/25/17 01:40 Constitutional: Yes: Calm Eyes: Yes: Conjunctiva Clear HENT: Yes: Atraumatic Neck: Yes: Supple Cardiovascular: Yes: S1, S2 Respiratory: Yes: CTA Bilaterally Gastrointestinal: Yes: Normal Bowel Sounds, Soft Renal/: Yes: WNL Musculoskeletal: Yes: WNL Edema: No Neurological: Yes: Oriented Psychiatric: Yes: Oriented Labs: CBC, BMP 12/25/17 07:10 12/25/17 07:10 Laboratory Tests 07/19/14 07/20/14 07/21/14 06:46 06:05 05:35 WBC Hgb Sodium Potassium Chloride Carbon Dioxide Anion Gap BUN Creatinine 1.6 H 1.2 D 1.3 Acetone, Qual 12/18/15 07/19/16 07/21/16 15:55 14:52 07:08 WBC Hgb Sodium Potassium Chloride Carbon Dioxide Anion Gap BUN Creatinine 1.8 H 2.0 H 1.5 H D Acetone, Qual 07/22/16 07/23/16 12/24/17 09:50 05:32 22:20 WBC Hgb 12.7 Sodium Potassium Chloride Carbon Dioxide Anion Gap BUN Creatinine 1.7 H 1.9 H Acetone, Qual 12/24/17 12/24/17 12/25/17 22:20 22:20 07:10 WBC 7.1 Hgb 11.3 L D Sodium Potassium Chloride Carbon Dioxide Anion Gap BUN Creatinine 2.7 H D Acetone, Qual Negative 12/25/17 07:10 WBC Hgb Sodium 140 Potassium 3.9 Chloride 108 H Carbon Dioxide 22 Anion Gap 10 BUN 46 H D Creatinine 2.1 H D Acetone, Qual Imaging - Results Chest X-ray: Report Reviewed Assessment/Plan Current Medications Generic Name Dose Route Start Last Admin Trade Name Chapo PRN Reason Stop Dose Admin Amlodipine Besylate 10 mg 12/25/17 12:30 12/25/17 12:43 Norvasc - PO 10 mg DAILY [facility] Administration Aspirin 81 mg 12/25/17 10:00 12/25/17 09:24 Asa - PO 81 mg DAILY [facility] Administration Clopidogrel Bisulfate 75 mg 12/25/17 10:00 12/25/17 09:24 Plavix - PO 75 mg DAILY [facility] Administration Collagenase 1 applic 12/25/17 11:15 Santyl - TP DAILY [facility] Heparin Sodium (Porcine) 5,000 unit 12/25/17 22:00 Heparin - SQ BID [facility] Sodium Chloride 1,000 mls @ 75 mls/hr 12/25/17 03:30 12/25/17 04:13 Normal Saline - IV 75 mls/hr ASDIR [facility] Administration Piperacillin Sod/Tazobactam 50 mls @ 100 mls/hr 12/25/17 09:00 12/25/17 09:24 Sod 2.25 gm/ Dextrose IVPB 100 mls/hr Q6H-IV [facility] Administration Protocol Insulin Aspart 1 vial 12/25/17 22:00 Novolog Vial Sliding Scale - SQ HS [facility] Protocol Insulin Aspart 1 vial 12/25/17 07:00 12/25/17 11:17 Novolog Vial Sliding Scale - SQ 2 units TIDAC [facility] Administration Protocol Insulin Detemir 20 units 12/25/17 07:00 12/25/17 06:17 Levemir Vial SQ 20 units BID@0700,2200 [facility] Administration Lisinopril 5 mg 12/25/17 10:00 12/25/17 09:24 Prinivil PO 5 mg DAILY [facility] Administration Metoprolol Succinate 25 mg 12/25/17 10:00 12/25/17 09:24 Toprol Xl - PO 25 mg BID [facility] Administration Rosuvastatin Calcium 40 mg 12/25/17 10:00 12/25/17 09:24 Crestor - PO 40 mg DAILY [facility] Administration Tamsulosin HCl 0.4 mg 12/25/17 22:00 Flomax - PO HS [facility] Impression 1. CKD 2. DM 3. HTN 4. DFU 5. HLD 6. 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
--- NOTE | 2017-12-25 15:05 | CONSULT ---
- Consultation REQUESTING PROVIDER: CONSULT REQUEST: We have been asked to surgically evaluate this patient for bilateral toe wounds PCP:Elina King HISTORY OF PRESENT ILLNESS: The patient is a 67 yo male with a history of DM who presented to the ER after being seen by his doctor. The patient has a history of callouses to both of his feet. In the past he had a callous which did heel on his right foot. Currently he has had a callous on his bilateral great toes x 3 months and to his rignt lateral foot x1 year. He denies any pain to his feet/lower ext. No fevers or chills. No CP. PMHx: DM, HTN, HLD, CAD PSHx: CABG several years ago Home Medications Medication Instructions Recorded Aspirin [ASA -] 81 mg PO DAILY 07/19/16 Clopidogrel Bisulfate [Plavix -] 75 mg PO DAILY 07/19/16 Insulin Glargine,Hum.rec.anlog 50 unit SQ DAILY 07/19/16 [[place] Solostar] Insulin Lispro [Humalog] 10 unit SQ TID 07/19/16 Metoprolol Succinate [Toprol XL -] 25 mg PO BID 07/19/16 Rosuvastatin [Crestor -] 40 mg PO DAILY 07/19/16 Lisinopril [Prinivil] 5 mg PO DAILY #30 tablet 07/23/16 Sulfamethoxazole/Trimethoprim 1 each PO BID #14 tablet 06/07/17 [Bactrim Ds Tablet] Tamsulosin HCl [Flomax] 0.4 mg PO HS #7 cap.er.24h 06/07/17 Allergies Allergy/AdvReac Type Severity Reaction Status Date / Time No Known Allergies Allergy Verified 12/24/17 21:58 REVIEW OF SYSTEMS: CONSTITUTIONAL: Absent: fever, chills, diaphoresis, generalized weakness, malaise, loss of appetite, weight change CARDIOVASCULAR: Absent: chest pain RESPIRATORY: Absent: cough, shortness of breath GASTROINTESTINAL: Absent: abdominal pain, abdominal distension GENITOURINARY: Absent: dysuria, hematuria NEUROLOGIC: Absent: paresthesias, unsteady gait PHYSICAL EXAM: GENERAL: Awake, alert, and fully oriented, in no acute distress. ABDOMEN: Soft, nontender, not distended. LOWER EXTREMITIES: 2+ DP/PTpulses, warm, well-perfused. No calf tenderness. No peripheral edema. Right foot with great toe callous, raised on medial aspect approx 3 x2 cm. Right lateral plantar surface with 1x2 cm callous at base of 5th toe. Left foot with 2x2cm callous on the plantar surface of his great toe. No purulent drainage. No erythema. NEUROLOGICAL: Normal speech, gait not observed. PSYCH: Cooperative. Good eye contact. Appropriate mood and affect. Vital Signs Temperature 97.9 F 12/25/17 11:00 Pulse Rate 55 L 12/25/17 11:00 Respiratory Rate 18 12/25/17 11:00 Blood Pressure 171/77 12/25/17 11:00 O2 Sat by Pulse Oximetry (%) 95 12/25/17 01:40 Lab Results WBC 7.1 K/mm3 (4.0-10.0) 12/25/17 07:10 RBC 3.91 M/mm3 (4.00-5.60) L 12/25/17 07:10 Hgb 11.3 GM/dL (11.7-16.9) L D 12/25/17 07:10 Hct 33.3 % (35.4-49) L 12/25/17 07:10 MCV 85.3 fl (80-96) 12/25/17 07:10 MCHC 34.0 g/dl (32.0-35.9) 12/25/17 07:10 RDW 14.9 % (11.9-15.9) 12/25/17 07:10 Plt Count 133 K/MM3 (134-434) L 12/25/17 07:10 Sodium 140 mmol/L (136-145) 12/25/17 07:10 Potassium 3.9 mmol/L (3.5-5.1) 12/25/17 07:10 Chloride 108 mmol/L (98-107) H 12/25/17 07:10 Carbon Dioxide 22 mmol/L (21-32) 12/25/17 07:10 Anion Gap 10 (8-16) 12/25/17 07:10 BUN 46 mg/dL (7-18) H D 12/25/17 07:10 Creatinine 2.1 mg/dL (0.7-1.3) H D 12/25/17 07:10 Random Glucose 150 mg/dL (74-106) H D 12/25/17 07:10 Calcium 7.8 mg/dL (8.5-10.1) L 12/25/17 07:10 INR 0.96 (0.82-1.09) 12/24/17 22:20 Microbiology blood cultures pending Problem List - Problems (1) Diabetic foot infection Assessment/Plan: Pt with palpable pulses and chronic wounds to b/l great toes, appearing to be callouses. No erythema or drianage/tenderness. PT written for local wound care by podiatry/santyl to wounds. Awaiting MRI. D/w Dr. Roy, pt with palpable distal pulses. No contra indications to any podiatry procedures that may be needed. Code(s): E11.628 - TYPE 2 DIABETES MELLITUS WITH OTHER SKIN COMPLICATIONS; L08.9 - LOCAL INFECTION OF THE SKIN AND SUBCUTANEOUS TISSUE, UNSP
[2017-12-25] MEDS ORDERED: SODIUM CHLORIDE 0.45% 1,000 ML IV SCH (15:30)
[2017-12-25] MEDS: COLLAGENASE CLOSTRIDIUM HIST. 30 GRAMS TUBE TP SCH (16:57)
[2017-12-25 18:08] LABS: URINE APPEARANCE CLEAR; URINE BILIRUBIN NEGATIVE (<2.0 mg/dL); URINE COLOR YELLOW; URINE KETONE NEGATIVE (NEGATIVE)
[2017-12-25 18:09] LABS: URINE LEUK ESTERASE NEGATIVE (NEGATIVE); URINE NITRITE NEGATIVE (NEGATIVE); URINE UROBILINOGEN 0.2 mg/dL (0.2-1.0)
[2017-12-25 19:21] LABS: URINE CREATININE 43.8 mg/dL (20-370)
[2017-12-25 19:22] LABS: RATIO URIN PROTEIN/URIN CREAT 2.32 MG/DL
[2017-12-25 21:32] LABS: EPI CELLS RARE /HPF (FEW)
[2017-12-25] MEDS: HEPARIN NA (PORCINE) 5,000 UNITS/ML 1ML VIAL SQ SCH (21:45)
[2017-12-25] MEDS: TAMSULOSIN HCL 0.4 MG CAP.ER.24H (FP) PO SCH (21:45)
[2017-12-25] MEDS ORDERED: INSULIN SLIDING SCALE (NOVOLOG) 1 VIAL SQ SCH (22:00)
[2017-12-26] MEDS ORDERED: PT OWN MED DRAWER 7, Y5N ONE ×2 (02:33→02:34)
[2017-12-26] MEDS: PIPERACILLIN/TAZOB 2.25 GM 2.25 GM in DEXTROSE 5%-WATER - 50 ML IVPB SCH ×4 (03:08→21:09)
[2017-12-26] MEDS: INSULIN (LEVEMIR) 100 UNITS/ML UNITS SQ SCH ×2 (06:24→21:15)
[2017-12-26] MEDS: INSULIN SLIDING SCALE (NOVOLOG) 1 VIAL SQ SCH ×4 (06:24→21:14)
[2017-12-26] MEDS ORDERED: INSULIN (NOVOLOG) ASPART 100 UNITS/ML 10ML VIAL ONE (06:31)
[2017-12-26] MEDS ORDERED: INSULIN (LEVEMIR) 100 UNITS/ML UNITS SQ ONE (06:32)
[2017-12-26 08:23] LABS: EOS % 3.9 % (0-4.5); HEMATOCRIT 37.2 % (35.4-49); HEMOGLOBIN 12.5 GM/dL (11.7-16.9); LYMPH % 13.8 % (8-40); MCH 28.7 pg (25.7-33.7); MCHC 33.6 g/dl (32.0-35.9); MEAN CELL VOLUME 85.4 fl (80-96); MEAN PLT VOLUME 9.9 fl (7.5-11.1); MONO % 9.1 % (3.8-10.2); NEUT % 72.2 % (42.8-82.8); PLATELET COUNT 152 K/MM3 (134-434); RBC 4.35 M/mm3 (4.00-5.60); RDW 15.2 % (11.9-15.9); WHITE BLOOD COUNT 6.8 K/mm3 (4.0-10.0)
[2017-12-26 09:04] LABS: ALBUMIN 3.1 g/dl (3.4-5.0); ALK PHOS 55 U/L (45-117); ANION GAP 9 (8-16); BILIRUBIN,TOTAL 0.6 mg/dL (0.2-1.0); BLOOD UREA NITROGEN 38 mg/dL (7-18); CALCIUM 8.2 mg/dL (8.5-10.1); CHLORIDE 108 mmol/L (98-107); CO2 22 mmol/L (21-32); CREATININE 1.6 mg/dL (0.7-1.3); GLUCOSE,RANDOM 143 mg/dL (74-106); POTASSIUM 4.7 mmol/L (3.5-5.1); SGOT/AST 21 U/L (15-37); SGPT/ALT 25 U/L (12-78); SODIUM 139 mmol/L (136-145); TOT PROT 7.2 g/dl (6.4-8.2)
[2017-12-26 09:08] LABS: ANION GAP 8 (8-16); BLOOD UREA NITROGEN 37 mg/dL (7-18); CALCIUM 8.3 mg/dL (8.5-10.1); CHLORIDE 107 mmol/L (98-107); CHOLESTEROL 342 mg/dL (50-200); CO2 24 mmol/L (21-32); CREATININE 1.7 mg/dL (0.7-1.3); GLUCOSE,RANDOM 142 mg/dL (74-106); HDL CHOLESTEROL 42 mg/dL (40-60); POTASSIUM 4.6 mmol/L (3.5-5.1); SODIUM 139 mmol/L (136-145); TRIGLYCERIDES 173 mg/dL (35-160)
--- NOTE | 2017-12-26 09:38 | PN ---
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: ID Surgical evaluation noted Based on my observation not sure if any active infection though I had continued Zosyn based on foul smelling drainage reported in ER and admitting notes Microbiology Selected Entries 12/26/17 06:00 Temperature 98.0 F Pulse Rate 65 Blood Pressure 155/76 Laboratory Tests 12/24/17 12/25/17 12/25/17 22:20 07:00 07:10 WBC 7.1 Hgb 11.3 L D Hct 33.3 L RDW 14.9 Neutrophils % 70.7 Lymphocytes % 14.3 Monocytes % 11.7 H Eosinophils % 2.6 Basophils % 0.7 Nucleated RBC % 0 ESR Creatinine 2.7 H D C-Reactive Protein 0.3 12/26/17 07:10 WBC Hgb Hct RDW Neutrophils % Lymphocytes % Monocytes % Eosinophils % Basophils % Nucleated RBC % ESR Pending Creatinine C-Reactive Protein Assessment Callouses of the feet not grossly infected Plan Might we want to pursue evaluation osteomyeltis as out pt and stop antibiotics all together Follow up with podiatry as outpt Shanika CHAVEZ Problem List - Problems (1) Diabetic foot infection Code(s): E11.628 - TYPE 2 DIABETES MELLITUS WITH OTHER SKIN COMPLICATIONS; L08.9 - LOCAL INFECTION OF THE SKIN AND SUBCUTANEOUS TISSUE, UNSP (2) Diabetes mellitus, insulin dependent (IDDM), uncontrolled Code(s): E10.65 - TYPE 1 DIABETES MELLITUS WITH HYPERGLYCEMIA
[2017-12-26] MEDS ORDERED: ROSUVASTATIN CA 10 MG TABLET (FP) ONE (10:14)
[2017-12-26] MEDS ORDERED: PIPERACILLIN/TAZOBACTAM 2.25 GM VIAL IVPB ONE ×3 (10:15→20:52)
[2017-12-26] MEDS ORDERED: DEXTROSE 5%-WATER - 50 ML IVPB ONE ×3 (10:15→20:52)
[2017-12-26] MEDS: ASPIRIN 81 MG CHEWABLE TABLETS PO SCH (10:20)
[2017-12-26] MEDS: amLODIPine BESYLATE 10 MG TABLET (FP) PO SCH (10:21)
[2017-12-26] MEDS: ROSUVASTATIN CA 20 MG TABLET (FP) PO SCH (10:21)
[2017-12-26] MEDS: HEPARIN NA (PORCINE) 5,000 UNITS/ML 1ML VIAL SQ SCH ×2 (10:21→21:47)
[2017-12-26] MEDS: CLOPIDOGREL BISULFATE 75 MG TABLET (FP) PO SCH (10:21)
[2017-12-26] MEDS: LISINOPRIL 5 MG TABLET (FP) PO SCH (10:21)
[2017-12-26] MEDS: COLLAGENASE CLOSTRIDIUM HIST. 30 GRAMS TUBE TP SCH (10:22)
--- NOTE | 2017-12-26 10:49 | CON.CARD ---
Cardiology Consult (text) - Consultation Consultation Note: cc: foot wound hpi: 67 m hx cad s/p mi and pcis, also s/p 3V arterial conduit CABG [place] 03[place]2016 [place] [facility] [place], [place]ld, dm, who is here with foot wound. Had non healing wound on foot so sent to ER. Otherwise no sxs. No cp, sob,palps, dizzy, loc, le edema, pnd, orthopnea. Sees Dr Ptael for cardio. pmh: per hpi psh: nc social: no tob fam: nc ros: per hpi; no nvd fever gib hematuria dysuria muscle pain, estrada, vision changes meds: Home Medications Medication Instructions Recorded Aspirin [ASA -] 81 mg PO DAILY 07/19/16 Clopidogrel Bisulfate [Plavix -] 75 mg PO DAILY 07/19/16 Insulin Glargine,Hum.rec.anlog 50 unit SQ DAILY 07/19/16 [Toujeo Solostar] Insulin Lispro [Humalog] 10 unit SQ TID 07/19/16 Metoprolol Succinate [Toprol XL -] 25 mg PO BID 07/19/16 Rosuvastatin [Crestor -] 40 mg PO DAILY 07/19/16 Lisinopril [Prinivil] 5 mg PO DAILY #30 tablet 07/23/16 Sulfamethoxazole/Trimethoprim 1 each PO BID #14 tablet 06/07/17 [Bactrim Ds Tablet] Tamsulosin HCl [Flomax] 0.4 mg PO HS #7 cap.er.24h 06/07/17 pe: Vital Signs Period Temp Pulse Resp BP Sys/Mcconnell Pulse Ox Last 24 Hr 97.8 F-98.0 F 55-66 16-18 155-176/76-78 100-100 nad, no jvd rrr s1s2 no mrg cta bl nl eff aaox3 no le e/c/c abd nt nd pos bs pos dp/pt no diaphoresis/jaundice Laboratory Last Values WBC 6.8 K/mm3 (4.0-10.0) 12/26/17 06:30 RBC 4.35 M/mm3 (4.00-5.60) 12/26/17 06:30 Hgb 12.5 GM/dL (11.7-16.9) 12/26/17 06:30 Hct 37.2 % (35.4-49) 12/26/17 06:30 MCV 85.4 fl (80-96) 12/26/17 06:30 MCH 28.7 pg (25.7-33.7) 12/26/17 06:30 MCHC 33.6 g/dl (32.0-35.9) 12/26/17 06:30 RDW 15.2 % (11.9-15.9) 12/26/17 06:30 Plt Count 152 K/MM3 (134-434) 12/26/17 06:30 MPV 9.9 fl (7.5-11.1) 12/26/17 06:30 Absolute Neuts (auto) 4.9 # 12/26/17 06:30 Neutrophils % 72.2 % (42.8-82.8) 12/26/17 06:30 Lymphocytes % 13.8 % (8-40) 12/26/17 06:30 Monocytes % 9.1 % (3.8-10.2) 12/26/17 06:30 Eosinophils % 3.9 % (0-4.5) 12/26/17 06:30 Basophils % 1.0 % (0-2.0) 12/26/17 06:30 Nucleated RBC % 0 % (0-0) 12/26/17 06:30 ESR 64 mm/hr (0-20) H 12/26/17 07:10 PT with INR 10.90 SEC (9.7-13.0) 12/24/17 22:20 INR 0.96 (0.82-1.09) 12/24/17 22:20 VBG pH 7.34 (7.32-7.42) 12/24/17 22:20 POC VBG pCO2 42.7 mmHg (38-52) 12/24/17 22:20 POC VBG pO2 29.0 mmHg (28-48) 12/24/17 22:20 Mixed VBG HCO3 22.4 meq/L (19-25) 12/24/17 22:20 Sodium 139 mmol/L (136-145) 12/26/17 06:30 Potassium 4.6 mmol/L (3.5-5.1) 12/26/17 06:30 Chloride 107 mmol/L (98-107) 12/26/17 06:30 Carbon Dioxide 24 mmol/L (21-32) 12/26/17 06:30 Anion Gap 8 (8-16) 12/26/17 06:30 BUN 37 mg/dL (7-18) H 12/26/17 06:30 Creatinine 1.7 mg/dL (0.7-1.3) H 12/26/17 06:30 Creat Clearance w eGFR 40.53 (>60) 12/26/17 06:30 POC Glucometer 143 UNITS (80-120) 12/26/17 05:30 Random Glucose 142 mg/dL (74-106) H 12/26/17 06:30 Hemoglobin A1c % 11.8 % (4.8-6.0) H D 12/26/17 07:10 Lactic Acid 0.3 mmol/L (0.0-2.0) 12/24/17 22:20 Calcium 8.3 mg/dL (8.5-10.1) L 12/26/17 06:30 Phosphorus 3.4 mg/dL (2.5-4.9) 12/25/17 07:10 Magnesium 2.2 mg/dL (1.8-2.4) 12/25/17 07:10 Total Bilirubin 0.6 mg/dL (0.2-1.0) 12/26/17 06:30 AST 21 U/L (15-37) D 12/26/17 06:30 ALT 25 U/L (12-78) 12/26/17 06:30 Alkaline Phosphatase 55 U/L (45-117) 12/26/17 06:30 Creatine Kinase 148 IU/L (39-308) 12/24/17 22:20 Troponin I < 0.02 ng/ml (0.00-0.05) 12/24/17 22:20 C-Reactive Protein 0.3 MG/DL (0.00-0.3) 12/25/17 07:00 Total Protein 7.2 g/dl (6.4-8.2) 12/26/17 06:30 Albumin 3.1 g/dl (3.4-5.0) L 12/26/17 06:30 Triglycerides 173 mg/dL (35-160) H D 12/26/17 06:30 Cholesterol 342 mg/dL (50-200) H D 12/26/17 06:30 Total LDL Cholesterol 246 mg/dL (5-100) H D 12/26/17 06:30 HDL Cholesterol 42 mg/dL (40-60) 12/26/17 06:30 Urine Color Yellow 12/25/17 15:31 Urine Appearance Clear 12/25/17 15:31 Urine pH 6.0 (5.0-8.0) 12/25/17 15:31 Ur Specific [place] 1.015 (1.001-1.035) 12/25/17 15:31 Urine Protein 100 mg/dl (NEGATIVE) 12/25/17 15:31 Urine Glucose (UA) 250 mg/dl (NEGATIVE) 12/25/17 15:31 Urine Ketones Negative (NEGATIVE) 12/25/17 15:31 Urine Blood Trace (NEGATIVE) H 12/25/17 15:31 Urine Nitrite Negative (NEGATIVE) D 12/25/17 15:31 Urine Bilirubin Negative (<2.0 mg/dL) 12/25/17 15:31 Urine Urobilinogen 0.2 mg/dL (0.2-1.0) 12/25/17 15:31 Ur Leukocyte Esterase Negative (NEGATIVE) D 12/25/17 15:31 Urine WBC (Auto) 0-3 /hpf (3-5) 12/25/17 15:31 Urine RBC (Auto) 0-4 /hpf (0-3) 12/25/17 15:31 Ur Epithelial Cells Rare /HPF (FEW) 12/25/17 15:31 U Random Total Protein 102 mg/dl (5-11.9) H 12/25/17 15:31 Urine Creatinine 43.8 mg/dL (20-370) 12/25/17 15:31 Protein/Creatinin Ratio 2.32 MG/DL 12/25/17 15:31 Acetone, Qual Negative (NEGATIVE) 12/24/17 22:20 HIV 1&2 Antibody Screen Negative 12/25/17 09:05 HIV P24 Antigen Negative 12/25/17 09:05 ecg: sr, nl intervals, no ischemic changes cxr: clear lungs a/p: 67 m hx cad s/p mi and pcis, also s/p 3V arterial conduit [place]G [place] 03[place]2016 [place] [facility] [place]ld, dm, who is here with foot wound. cad, pci, cabg -stable, no signs acs, no anginal sxs -Had 3V CABG 2015(PAPPAS to LAD, free radial to OM1 and free radial to OM3). Also with hx of LITA x 8 with multiple ISR --> maintained on chronic DAPT. -[facility] LVEF at [facility] was 48% in 03/2016 --> 50-55% on office echo 06/2016. Volume stable here on lasix 60 mg daily. -Continue asa, plavix, mal, BB and statin HTN -bp high, will increase toprol to 50 bid, cont other meds hld: -cont statin CKD -Baseline Cr 1.98 [facility] in 03[facility]2016 -Stable foot wound: -on abx, vascular, podiatry evaluating
--- NOTE | 2017-12-26 12:31 | PN ---
Progress Note, Physician - Current Medication List Current Medications: Active Medications Amlodipine Besylate (Norvasc -) 10 mg PO DAILY [facility] Last Admin: 12/26/17 10:21 Dose: 10 mg Aspirin (Asa -) 81 mg PO DAILY [facility] Last Admin: 12/26/17 10:20 Dose: 81 mg Clopidogrel Bisulfate (Plavix -) 75 mg PO DAILY [facility] Last Admin: 12/26/17 10:21 Dose: 75 mg Collagenase (Santyl -) 1 applic TP DAILY [facility] Last Admin: 12/26/17 10:22 Dose: 1 applic Heparin Sodium (Porcine) (Heparin -) 5,000 unit SQ BID [facility] Last Admin: 12/26/17 10:21 Dose: 5,000 unit Piperacillin Sod/Tazobactam (Sod 2.25 gm/ Dextrose) 50 mls @ 100 mls/hr IVPB Q6H-IV [facility]; Protocol Last Admin: 12/26/17 10:20 Dose: 100 mls/hr Sodium Chloride (1/2 Normal Saline) 1,000 mls @ 75 mls/hr IV ASDIR [facility] Last Admin: 12/25/17 15:44 Dose: 75 mls/hr Insulin Aspart (Novolog Vial Sliding Scale -) 1 vial SQ HS [facility]; Protocol Last Admin: 12/25/17 21:46 Dose: Not Given Insulin Aspart (Novolog Vial Sliding Scale -) 1 vial SQ TIDAC [facility]; Protocol Last Admin: 12/26/17 06:24 Dose: Not Given Insulin Detemir (Levemir Vial) 20 units SQ BID@0700,2200 [facility] Last Admin: 12/26/17 06:24 Dose: 20 units Lisinopril (Prinivil) 5 mg PO DAILY [facility] Last Admin: 12/26/17 10:21 Dose: 5 mg Metoprolol Succinate (Toprol Xl -) 50 mg PO BID [facility] Last Admin: 12/26/17 10:22 Dose: 50 mg Rosuvastatin Calcium (Crestor -) 40 mg PO DAILY [facility] Last Admin: 12/26/17 10:21 Dose: 40 mg Tamsulosin HCl (Flomax -) 0.4 mg PO HS [facility] Last Admin: 12/25/17 21:45 Dose: 0.4 mg - Objective Vital Signs: Vital Signs Temperature 98.0 F 12/26/17 06:00 Pulse Rate 65 12/26/17 06:00 Respiratory Rate 18 23/18 06:00 Blood Pressure 155/76 12/26/17 06:00 O2 Sat by Pulse Oximetry (%) 100 12/25/17 19:00 Cardiovascular: Yes: Regular Rate and Rhythm Respiratory: Yes: Regular, CTA Bilaterally Gastrointestinal: Yes: Normal Bowel Sounds, Soft Edema: No Wound/Incision: Yes: Dressing Removed, Excoriated Labs: CBC, BMP 12/26/17 06:30 12/26/17 06:30 INR, PTT INR 0.96 (0.82-1.09) 12/24/17 22:20 Assessment/Plan - Problems (1) Diabetic foot infection Assessment/Plan: iv abx ID and podiatry on board glycemic control MRI of foot vascular consult dvt ppx Code(s): E11.628 - TYPE 2 DIABETES MELLITUS WITH OTHER SKIN COMPLICATIONS; L08.9 - LOCAL INFECTION OF THE SKIN AND SUBCUTANEOUS TISSUE, UNSP (2) BPH (benign prostatic hypertrophy) Assessment/Plan: flomax Code(s): N40.0 - BENIGN PROSTATIC HYPERPLASIA WITHOUT LOWER URINRY TRACT SYMP Qualifiers: Lower urinary tract symptom presence: symptoms present Qualified Code(s): N40.1 - Benign prostatic hyperplasia with lower urinary tract symptoms (3) CAD (coronary artery disease) Assessment/Plan: aspirin,plavix,metoprolol and crestor check lipid profile Code(s): I25.10 - ATHSCL HEART DISEASE OF [place] CORONARY ARTERY W/O ANG PCTRS
--- NOTE | 2017-12-26 12:52 | PN ---
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: FUV big toes. MRI not done yet. vss, tmax=98 dp 2/4 b/l, pt .5/4 b/l, +grade 2-3 wounds b/l hallux, +b/l ulcerations of medial big toes. -drainage, -mal odor, +localized cellulitis, [id number] grade 2-3 wounds b/l big toes r/o om Santyl to wounds for now. Awaiting MRI ordered. Vascular consult read and appreciated Awaiting Endocrine consult. Will follow.
[2017-12-26] MEDS ORDERED: SODIUM CHLORIDE 0.45% 1,000 ML IV SCH (15:43)
--- NOTE | 2017-12-26 15:43 | PN ---
Progress Note, Physician History of Present Illness: Pt seen and examined at bedside. I discussed his bloodwork with him and he says today that he is awake that his renal function is not normal. - Current Medication List Current Medications: Active Medications Amlodipine Besylate (Norvasc -) 10 mg PO DAILY [facility] Last Admin: 12/26/17 10:21 Dose: 10 mg Aspirin (Asa -) 81 mg PO DAILY [facility] Last Admin: 12/26/17 10:20 Dose: 81 mg Clopidogrel Bisulfate (Plavix -) 75 mg PO DAILY [facility] Last Admin: 12/26/17 10:21 Dose: 75 mg Collagenase (Santyl -) 1 applic TP DAILY [facility] Last Admin: 12/26/17 10:22 Dose: 1 applic Heparin Sodium (Porcine) (Heparin -) 5,000 unit SQ BID [facility] Last Admin: 12/26/17 10:21 Dose: 5,000 unit Piperacillin Sod/Tazobactam (Sod 2.25 gm/ Dextrose) 50 mls @ 100 mls/hr IVPB Q6H-IV [facility]; Protocol Last Admin: 12/26/17 10:20 Dose: 100 mls/hr Sodium Chloride (1/2 Normal Saline) 1,000 mls @ 75 mls/hr IV ASDIR [facility] Last Admin: 12/25/17 15:44 Dose: 75 mls/hr Insulin Aspart (Novolog Vial Sliding Scale -) 1 vial SQ HS [facility]; Protocol Last Admin: 12/25/17 21:46 Dose: Not Given Insulin Aspart (Novolog Vial Sliding Scale -) 1 vial SQ TIDAC [facility]; Protocol Last Admin: 12/26/17 12:39 Dose: 3 units Insulin Detemir (Levemir Vial) 20 units SQ BID@0700,2200 [facility] Last Admin: 12/26/17 06:24 Dose: 20 units Lisinopril (Prinivil) 5 mg PO DAILY [facility] Last Admin: 12/26/17 10:21 Dose: 5 mg Metoprolol Succinate (Toprol Xl -) 50 mg PO BID [facility] Last Admin: 12/26/17 10:22 Dose: 50 mg Rosuvastatin Calcium (Crestor -) 40 mg PO DAILY [facility] Last Admin: 12/26/17 10:21 Dose: 40 mg Tamsulosin HCl (Flomax -) 0.4 mg PO HS [facility] Last Admin: 12/25/17 21:45 Dose: 0.4 mg - Objective Vital Signs: Vital Signs Temperature 98.0 F 12/26/17 06:00 Pulse Rate 65 12/26/17 06:00 Respiratory Rate 18 12/26/17 06:00 Blood Pressure 155/76 12/26/17 06:00 O2 Sat by Pulse Oximetry (%) 100 12/25/17 19:00 Constitutional: Yes: Calm Eyes: Yes: Conjunctiva Clear HENT: Yes: Atraumatic Neck: Yes: Supple Cardiovascular: Yes: S1, S2 Respiratory: Yes: CTA Bilaterally Gastrointestinal: Yes: Normal Bowel Sounds, Soft Genitourinary: Yes: WNL Musculoskeletal: Yes: WNL Edema: No Neurological: Yes: Oriented Psychiatric: Yes: Oriented Labs: CBC, BMP 12/26/17 06:30 12/26/17 06:30 INR, PTT INR 0.96 (0.82-1.09) 12/24/17 22:20 Problem List - Problems (1) CAD (coronary artery disease) Code(s): I25.10 - ATHSCL HEART DISEASE OF [place] CORONARY ARTERY W/O ANG PCTRS (2) Hyperglycemia Code(s): R73.9 - HYPERGLYCEMIA, UNSPECIFIED (3) Renal insufficiency Code(s): N28.9 - DISORDER OF KIDNEY AND URETER, UNSPECIFIED Assessment/Plan Current Medications Generic Name Dose Route Start Last Admin Trade Name Freq PRN Reason Stop Dose Admin Amlodipine Besylate 10 mg 12/25/17 12:30 12/26/17 10:21 Norvasc - PO 10 mg DAILY [facility] Administration Aspirin 81 mg 12/25/17 10:00 12/26/17 10:20 Asa - PO 81 mg DAILY [facility] Administration Clopidogrel Bisulfate 75 mg 12/25/17 10:00 12/26/17 10:21 Plavix - PO 75 mg DAILY [facility] Administration Collagenase 1 applic 12/25/17 11:15 12/26/17 10:22 Santyl - TP 1 applic DAILY [facility] Administration Heparin Sodium (Porcine) 5,000 unit 12/25/17 22:00 12/26/17 10:21 Heparin - SQ 5,000 unit BID [facility] Administration Piperacillin Sod/Tazobactam 50 mls @ 100 mls/hr 12/25/17 09:00 12/26/17 10:20 Sod 2.25 gm/ Dextrose IVPB 100 mls/hr Q6H-IV [facility] Administration Protocol Sodium Chloride 1,000 mls @ 75 mls/hr 12/25/17 15:30 12/25/17 15:44 1/2 Normal Saline IV 75 mls/hr ASDIR [facility] Administration Insulin Aspart 1 vial 12/25/17 22:00 12/25/17 21:46 Novolog Vial Sliding Scale - SQ Not Given HS [facility] Protocol Insulin Aspart 1 vial 12/25/17 07:00 12/26/17 12:39 Novolog Vial Sliding Scale - SQ 3 units TIDAC [facility] Administration Protocol Insulin Detemir 20 units 12/25/17 07:00 12/26/17 06:24 Levemir Vial SQ 20 units BID@0700,2200 [facility] Administration Lisinopril 5 mg 12/25/17 10:00 12/26/17 10:21 Prinivil PO 5 mg DAILY [facility] Administration Metoprolol Succinate 50 mg 12/26/17 08:56 12/26/17 10:22 Toprol Xl - PO 50 mg BID [facility] Administration Rosuvastatin Calcium 40 mg 12/25/17 10:00 12/26/17 10:21 Crestor - PO 40 mg DAILY [facility] Administration Tamsulosin HCl 0.4 mg 12/25/17 22:00 12/25/17 21:45 Flomax - PO 0.4 mg HS [facility] Administration Impression 1. CKD 2. DM 3. HTN 4. DFU 5. HLD 6. BPH Plan - renal function has improved - repeat labs in am - renal ultrasound reviewed - will need outpt workup - will decrease rate of fluids further and likely stop them tomorrow - uncontrolled DM can explain the renal findings however he will need further workup Dr Porter
[2017-12-26] MEDS: TAMSULOSIN HCL 0.4 MG CAP.ER.24H (FP) PO SCH (21:10)
[2017-12-27] MEDS ORDERED: PIPERACILLIN/TAZOBACTAM 2.25 GM VIAL IVPB ONE ×5 (00:08→23:22)
[2017-12-27] MEDS ORDERED: DEXTROSE 5%-WATER - 50 ML IVPB ONE ×5 (00:09→23:23)
[2017-12-27] MEDS: PIPERACILLIN/TAZOB 2.25 GM 2.25 GM in DEXTROSE 5%-WATER - 50 ML IVPB SCH ×4 (03:05→20:12)
[2017-12-27] MEDS: INSULIN SLIDING SCALE (NOVOLOG) 1 VIAL SQ SCH ×4 (06:02→21:37)
[2017-12-27] MEDS: INSULIN (LEVEMIR) 100 UNITS/ML UNITS SQ SCH ×2 (06:03→21:38)
[2017-12-27 08:17] LABS: ANION GAP 7 (8-16); BLOOD UREA NITROGEN 36 mg/dL (7-18); CALCIUM 8.3 mg/dL (8.5-10.1); CHLORIDE 106 mmol/L (98-107); CO2 25 mmol/L (21-32); CREATININE 1.9 mg/dL (0.7-1.3); GLUCOSE,RANDOM 134 mg/dL (74-106); POTASSIUM 5.1 mmol/L (3.5-5.1); SODIUM 138 mmol/L (136-145)
[2017-12-27] MEDS ORDERED: ROSUVASTATIN CA 10 MG TABLET (FP) ONE (08:53)
[2017-12-27] MEDS: HEPARIN NA (PORCINE) 5,000 UNITS/ML 1ML VIAL SQ SCH ×2 (10:08→21:24)
[2017-12-27] MEDS: CLOPIDOGREL BISULFATE 75 MG TABLET (FP) PO SCH (10:09)
[2017-12-27] MEDS: ASPIRIN 81 MG CHEWABLE TABLETS PO SCH (10:09)
[2017-12-27] MEDS: LISINOPRIL 5 MG TABLET (FP) PO SCH (10:10)
[2017-12-27] MEDS: ROSUVASTATIN CA 20 MG TABLET (FP) PO SCH (10:10)
[2017-12-27] MEDS: amLODIPine BESYLATE 10 MG TABLET (FP) PO SCH (10:10)
[2017-12-27] MEDS: COLLAGENASE CLOSTRIDIUM HIST. 30 GRAMS TUBE TP SCH (10:12)
--- NOTE | 2017-12-27 11:46 | PN ---
Progress Note, Physician - Current Medication List Current Medications: Active Medications Amlodipine Besylate (Norvasc -) 10 mg PO DAILY [facility] Last Admin: 12/27/17 10:10 Dose: 10 mg Aspirin (Asa -) 81 mg PO DAILY [facility] Last Admin: 12/27/17 10:09 Dose: 81 mg Clopidogrel Bisulfate (Plavix -) 75 mg PO DAILY [facility] Last Admin: 12/27/17 10:09 Dose: 75 mg Collagenase (Santyl -) 1 applic TP DAILY [facility] Last Admin: 12/27/17 10:12 Dose: 1 applic Heparin Sodium (Porcine) (Heparin -) 5,000 unit SQ BID [facility] Last Admin: 12/27/17 10:08 Dose: 5,000 unit Piperacillin Sod/Tazobactam (Sod 2.25 gm/ Dextrose) 50 mls @ 100 mls/hr IVPB Q6H-IV [facility]; Protocol Last Admin: 12/27/17 10:12 Dose: 100 mls/hr Sodium Chloride (1/2 Normal Saline) 1,000 mls @ 42 mls/hr IV ASDIR [facility] Last Admin: 12/26/17 17:25 Dose: 42 mls/hr Insulin Aspart (Novolog Vial Sliding Scale -) 1 vial SQ TIDAC [facility]; Protocol Last Admin: 12/27/17 06:02 Dose: Not Given Insulin Aspart (Novolog Vial Sliding Scale -) 1 vial SQ HS [facility]; Protocol Last Admin: 12/26/17 21:14 Dose: 7 units Insulin Detemir (Levemir Vial) 25 units SQ BID@0700,2200 [facility] Last Admin: 12/27/17 06:03 Dose: Not Given Lisinopril (Prinivil) 5 mg PO DAILY [facility] Last Admin: 12/27/17 10:10 Dose: 5 mg Metoprolol Succinate (Toprol Xl -) 50 mg PO BID [facility] Last Admin: 12/27/17 10:10 Dose: 50 mg Rosuvastatin Calcium (Crestor -) 40 mg PO DAILY [facility] Last Admin: 12/27/17 10:10 Dose: 40 mg Tamsulosin HCl (Flomax -) 0.4 mg PO HS [facility] Last Admin: 12/26/17 21:10 Dose: 0.4 mg - Objective Vital Signs: Vital Signs Temperature 97.7 F 12/27/17 06:00 Pulse Rate 53 L 12/27/17 06:00 Respiratory Rate 18 06/24/18 06:00 Blood Pressure 128/69 12/27/17 06:00 O2 Sat by Pulse Oximetry (%) 99 12/27/17 03:00 Cardiovascular: Yes: S1, S2 Respiratory: Yes: Regular, CTA Bilaterally Gastrointestinal: Yes: Normal Bowel Sounds, Soft Labs: CBC, BMP 12/26/17 06:30 12/27/17 06:54 INR, PTT INR 0.96 (0.82-1.09) 12/24/17 22:20 Assessment/Plan - Problems (1) Diabetic foot infection Assessment/Plan: iv abx ID and podiatry on board glycemic control MRI of foot vascular consult dvt ppx Code(s): E11.628 - TYPE 2 DIABETES MELLITUS WITH OTHER SKIN COMPLICATIONS; L08.9 - LOCAL INFECTION OF THE SKIN AND SUBCUTANEOUS TISSUE, UNSP (2) BPH (benign prostatic hypertrophy) Assessment/Plan: flomax Code(s): N40.0 - BENIGN PROSTATIC HYPERPLASIA WITHOUT LOWER URINRY TRACT SYMP Qualifiers: Lower urinary tract symptom presence: symptoms present Qualified Code(s): N40.1 - Benign prostatic hyperplasia with lower urinary tract symptoms (3) CAD (coronary artery disease) Assessment/Plan: aspirin,plavix,metoprolol and crestor check lipid profile Code(s): I25.10 - ATHSCL HEART DISEASE OF [place] CORONARY ARTERY W/O ANG PCTRS
[2017-12-27] MEDS ORDERED: SODIUM CHLORIDE 0.45% 1,000 ML IV SCH (16:00)
--- NOTE | 2017-12-27 16:00 | PN ---
Progress Note, Physician History of Present Illness: Pt seen and examined at bedside. He is awake and alert. He denies fevers or chills. - Current Medication List Current Medications: Active Medications Amlodipine Besylate (Norvasc -) 10 mg PO DAILY [facility] Last Admin: 12/27/17 10:10 Dose: 10 mg Aspirin (Asa -) 81 mg PO DAILY [facility] Last Admin: 12/27/17 10:09 Dose: 81 mg Clopidogrel Bisulfate (Plavix -) 75 mg PO DAILY [facility] Last Admin: 12/27/17 10:09 Dose: 75 mg Collagenase (Santyl -) 1 applic TP DAILY [facility] Last Admin: 12/27/17 10:12 Dose: 1 applic Heparin Sodium (Porcine) (Heparin -) 5,000 unit SQ BID [facility] Last Admin: 12/27/17 10:08 Dose: 5,000 unit Piperacillin Sod/Tazobactam (Sod 2.25 gm/ Dextrose) 50 mls @ 100 mls/hr IVPB Q6H-IV [facility]; Protocol Last Admin: 12/27/17 15:20 Dose: 100 mls/hr Sodium Chloride (1/2 Normal Saline) 1,000 mls @ 42 mls/hr IV ASDIR [facility] Last Admin: 12/26/17 17:25 Dose: 42 mls/hr Insulin Aspart (Novolog Vial Sliding Scale -) 1 vial SQ TIDAC [facility]; Protocol Last Admin: 12/27/17 12:42 Dose: 3 units Insulin Aspart (Novolog Vial Sliding Scale -) 1 vial SQ HS [facility]; Protocol Last Admin: 12/26/17 21:14 Dose: 7 units Insulin Detemir (Levemir Vial) 25 units SQ BID@0700,2200 [facility] Last Admin: 12/27/17 06:03 Dose: Not Given Lisinopril (Prinivil) 5 mg PO DAILY [facility] Last Admin: 12/27/17 10:10 Dose: 5 mg Metoprolol Succinate (Toprol Xl -) 50 mg PO BID [facility] Last Admin: 12/27/17 10:10 Dose: 50 mg Rosuvastatin Calcium (Crestor -) 40 mg PO DAILY [facility] Last Admin: 12/27/17 10:10 Dose: 40 mg Tamsulosin HCl (Flomax -) 0.4 mg PO HS [facility] Last Admin: 12/26/17 21:10 Dose: 0.4 mg - Objective Vital Signs: Vital Signs Temperature 97.9 F 12/27/17 10:00 Pulse Rate 56 L 12/27/17 10:00 Respiratory Rate 18 12/27/17 10:00 Blood Pressure 142/71 12/27/17 10:00 O2 Sat by Pulse Oximetry (%) 99 12/27/17 03:00 Constitutional: Yes: Calm Eyes: Yes: Conjunctiva Clear HENT: Yes: Atraumatic Neck: Yes: Supple Cardiovascular: Yes: S1, S2 Respiratory: Yes: CTA Bilaterally Gastrointestinal: Yes: Soft Genitourinary: Yes: WNL Musculoskeletal: Yes: WNL Edema: No Neurological: Yes: Oriented Psychiatric: Yes: Oriented Labs: CBC, BMP 12/26/17 06:30 12/27/17 06:54 INR, PTT INR 0.96 (0.82-1.09) 12/24/17 22:20 Problem List - Problems (1) CAD (coronary artery disease) Code(s): I25.10 - ATHSCL HEART DISEASE OF [place] CORONARY ARTERY W/O ANG PCTRS (2) Hyperglycemia Code(s): R73.9 - HYPERGLYCEMIA, UNSPECIFIED (3) Renal insufficiency Code(s): N28.9 - DISORDER OF KIDNEY AND URETER, UNSPECIFIED Assessment/Plan Current Medications Generic Name Dose Route Start Last Admin Trade Name Chapo PRN Reason Stop Dose Admin Amlodipine Besylate 10 mg 12/25/17 12:30 12/27/17 10:10 Norvasc - PO 10 mg DAILY [facility] Administration Aspirin 81 mg 12/25/17 10:00 12/27/17 10:09 Asa - PO 81 mg DAILY [facility] Administration Clopidogrel Bisulfate 75 mg 12/25/17 10:00 12/27/17 10:09 Plavix - PO 75 mg DAILY [facility] Administration Collagenase 1 applic 12/25/17 11:15 12/27/17 10:12 Santyl - TP 1 applic DAILY [facility] Administration Heparin Sodium (Porcine) 5,000 unit 12/25/17 22:00 12/27/17 10:08 Heparin - SQ 5,000 unit BID [facility] Administration Piperacillin Sod/Tazobactam 50 mls @ 100 mls/hr 12/25/17 09:00 12/27/17 15:20 Sod 2.25 gm/ Dextrose IVPB 100 mls/hr Q6H-IV [facility] Administration Protocol Sodium Chloride 1,000 mls @ 42 mls/hr 12/26/17 15:43 12/26/17 17:25 1/2 Normal Saline IV 42 mls/hr ASDIR [facility] Administration Insulin Aspart 1 vial 12/25/17 07:00 12/27/17 12:42 Novolog Vial Sliding Scale - SQ 3 units TIDAC [facility] Administration Protocol Insulin Aspart 1 vial 12/26/17 16:50 12/26/17 21:14 Novolog Vial Sliding Scale - SQ 7 units HS [facility] Administration Protocol Insulin Detemir 25 units 12/26/17 16:51 12/27/17 06:03 Levemir Vial SQ Not Given BID@0700,2200 [facility] Lisinopril 5 mg 12/25/17 10:00 12/27/17 10:10 Prinivil PO 5 mg DAILY [facility] Administration Metoprolol Succinate 50 mg 12/26/17 08:56 12/27/17 10:10 Toprol Xl - PO 50 mg BID [facility] Administration Rosuvastatin Calcium 40 mg 12/25/17 10:00 12/27/17 10:10 Crestor - PO 40 mg DAILY [facility] Administration Tamsulosin HCl 0.4 mg 12/25/17 22:00 12/26/17 21:10 Flomax - PO 0.4 mg HS [facility] Administration Impression 1. CKD 2. DM 3. HTN 4. DFU 5. HLD 6. BPH Plan - cont with fluids - repeat labs in am - low potassium diet - will need outpt workup - uncontrolled DM can explain the renal findings however he will need further workup Dr Porter
[2017-12-27] MEDS: TAMSULOSIN HCL 0.4 MG CAP.ER.24H (FP) PO SCH (21:24)
--- NOTE | 2017-12-28 00:05 | CONSULT ---
Consult Consult Specialty:: endocrine Referred by:: dr.annabi gordon Reason for Consultation:: diabetes mellitus - History of Present Illness Chief Complaint: foot infections/high sugars History of Present Illness: 67year-old male with the bilateral great toe wound with right great toe with serosanguineous foul-smelling drainage. patient has been running high blood sugar in the high 400s. Patient seen and was advised to come to the emergency room for admission to the hospital.he admits to non compliance with diet, Patient denies fevers/chills/nausea/vomiting. - History Source History Provided By: Patient - Past Medical History WIRE CUTTER: Yes: Migraine Cardio/Vascular: Yes: CAD, HTN, Hyperlipdemia, SC Gastrointestinal: Yes: GERD Renal/: Yes: Renal Inusuff Endocrine: Yes: Diabetes Mellitus - Past Surgical History Past Surgical History: Yes: Stent - Alcohol/Substance Use Hx Alcohol Use: No - Smoking History Smoking history: Never smoked Have you smoked in the past 12 months: No If you are a former smoker, when did you quit?: 35 YRS Home Medications - Allergies Allergies/Adverse Reactions: Allergies Allergy/AdvReac Type Severity Reaction Status Date / Time No Known Allergies Allergy Verified 12/24/17 21:58 - Home Medications Home Medications: Ambulatory Orders Aspirin [ASA -] 81 mg PO DAILY 07/19/16 Clopidogrel Bisulfate [Plavix -] 75 mg PO DAILY 07/19/16 Insulin Glargine,Hum.rec.anlog [Toukhris Solostar] 50 unit SQ DAILY 07/19/16 Insulin Lispro [Humalog] 10 unit SQ TID 07/19/16 Metoprolol Succinate [Toprol XL -] 25 mg PO BID 07/19/16 Rosuvastatin [Crestor -] 40 mg PO DAILY 07/19/16 Lisinopril [Prinivil] 5 mg PO DAILY #30 tablet 07/23/16 Sulfamethoxazole/Trimethoprim [Bactrim Ds Tablet] 1 each PO BID #14 tablet 06/07 Tamsulosin HCl [Flomax] 0.4 mg PO HS #7 cap.er.24h 06/07/17 Review of Systems - Review of Systems Constitutional: reports: Lethargy, Weakness Eyes: reports: No Symptoms HENT: reports: No Symptoms Neck: reports: No Symptoms Cardiovascular: reports: Shortness of Breath Respiratory: reports: Exercise Intolerance, SOB on Exertion Gastrointestinal: reports: No Symptoms Genitourinary: reports: No Symptoms Breasts: reports: No Symptoms Reported Musculoskeletal: reports: Muscle Pain, Muscle Cramps, Muscle Weakness Integumentary: reports: No Symptoms Neurological: reports: Numbness, Weakness Endocrine: reports: No Symptoms Physical Exam Vital Signs: Vital Signs Temperature 98.9 F 12/27/17 22:00 Pulse Rate 59 L 12/27/17 22:00 Respiratory Rate 18 12/27/17 22:00 Blood Pressure 137/65 12/27/17 22:00 O2 Sat by Pulse Oximetry (%) 99 12/27/17 03:00 Constitutional: Yes: Calm Eyes: Yes: EOM Intact HENT: Yes: Normocephalic Neck: Yes: Trachea Midline Cardiovascular: Yes: Regular Rate and Rhythm Respiratory: Yes: CTA Bilaterally Gastrointestinal: Yes: Normal Bowel Sounds ...Rectal Exam: Yes: Deferred Breast(s): Yes: WNL Musculoskeletal: Yes: Back Pain, Joint Stiffness Edema: No Peripheral Pulses WNL: Yes Wound/Incision: Yes: Draining Neurological: Yes: Alert, Oriented Labs: CBC, BMP 12/26/17 06:30 12/27/17 06:54 Problem List - Problems (1) CAD (coronary artery disease) Code(s): I25.10 - ATHSCL HEART DISEASE OF [place] CORONARY ARTERY W/O ANG PCTRS (2) Diabetic foot infection Code(s): E11.628 - TYPE 2 DIABETES MELLITUS WITH OTHER SKIN COMPLICATIONS; L08.9 - LOCAL INFECTION OF THE SKIN AND SUBCUTANEOUS TISSUE, UNSP (3) Hyperglycemia Code(s): R73.9 - HYPERGLYCEMIA, UNSPECIFIED (4) Aortic root dilatation Code(s): I77.810 - THORACIC AORTIC ECTASIA (5) BPH (benign prostatic hypertrophy) Code(s): N40.0 - BENIGN PROSTATIC HYPERPLASIA WITHOUT LOWER URINRY TRACT SYMP Qualifiers: Lower urinary tract symptom presence: symptoms present Qualified Code(s): N40.1 - Benign prostatic hyperplasia with lower urinary tract symptoms (6) Congestive heart failure Code(s): I50.9 - HEART FAILURE, UNSPECIFIED (7) Diabetes mellitus, insulin dependent (IDDM), uncontrolled Code(s): E10.65 - TYPE 1 DIABETES MELLITUS WITH HYPERGLYCEMIA Assessment/Plan Current Active Problems CAD (coronary artery disease) (Acute) Diabetic foot infection (Acute) Hyperglycemia (Acute) gangrene infection toe iddm uncontrolled hypertension hyperlipidemia Abnormal Lab Results 12/27/17 06:54 Anion Gap 7 L BUN 36 H Creatinine 1.9 H Random Glucose 134 H Calcium 8.3 L Laboratory Results - last 24 hr 12/25/17 12/27/17 12/27/17 09:05 06:01 06:54 Sodium 138 Potassium 5.1 Chloride 106 Carbon Dioxide 25 Anion Gap 7 L BUN 36 H Creatinine 1.9 H Creat Clearance w eGFR 35.64 POC Glucometer 76 Random Glucose 134 H Calcium 8.3 L Hep C Ab Diagnostic <0.1 Liver Fibrosis Interp 12/27/17 12/27/17 12/27/17 12:37 17:02 21:37 Sodium Potassium Chloride Carbon Dioxide Anion Gap BUN Creatinine Creat Clearance w eGFR POC Glucometer 204 178 214 Random Glucose Calcium Hep C Ab Diagnostic Liver Fibrosis Interp Laboratory Tests 12/26/17 07:10 Hemoglobin A1c % 11.8 H D plan: bgm qid novolog scale diet nutrition levemir bid doses to titrate wound care management
[2017-12-28] MEDS: PIPERACILLIN/TAZOB 2.25 GM 2.25 GM in DEXTROSE 5%-WATER - 50 ML IVPB SCH ×2 (02:45→10:00)
[2017-12-28] MEDS: INSULIN SLIDING SCALE (NOVOLOG) 1 VIAL SQ SCH ×4 (06:10→22:20)
[2017-12-28] MEDS: INSULIN (LEVEMIR) 100 UNITS/ML UNITS SQ SCH ×2 (06:19→22:19)
--- NOTE | 2017-12-28 09:07 | PN ---
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: FUV big toes. vss, tmax=97.8 dp 2/4 b/l, pt .5/4 b/l, +grade 2-3 wounds b/l hallux, +b/l ulcerations of medial big toes. om right big toe, no om left big toe, esr=64, grade 2-3 wounds b/l big toes r/o om Santyl to wounds for now. Wound care for follow up. CRP. Discussed HBO with patient. IVABX as per ID. Will follow till dc. Post op shoe b/l.
[2017-12-28] MEDS ORDERED: DEXTROSE 5%-WATER - 50 ML IVPB ONE (09:53)
[2017-12-28] MEDS ORDERED: PIPERACILLIN/TAZOBACTAM 2.25 GM VIAL IVPB ONE (09:53)
[2017-12-28] MEDS: CLOPIDOGREL BISULFATE 75 MG TABLET (FP) PO SCH (10:00)
[2017-12-28] MEDS: amLODIPine BESYLATE 10 MG TABLET (FP) PO SCH (10:00)
[2017-12-28] MEDS: LISINOPRIL 5 MG TABLET (FP) PO SCH (10:00)
[2017-12-28] MEDS: ASPIRIN 81 MG CHEWABLE TABLETS PO SCH (10:00)
[2017-12-28] MEDS: HEPARIN NA (PORCINE) 5,000 UNITS/ML 1ML VIAL SQ SCH ×2 (10:01→22:11)
[2017-12-28] MEDS: ROSUVASTATIN CA 20 MG TABLET (FP) PO SCH (10:01)
[2017-12-28] MEDS: COLLAGENASE CLOSTRIDIUM HIST. 30 GRAMS TUBE TP SCH (10:02)
[2017-12-28] MEDS ORDERED: PIPERACILLIN/TAZOB 2.25 GM 2.25 GM in SODIUM CHLORIDE 50 ML IVPB SCH (11:38)
--- NOTE | 2017-12-28 11:41 | PN ---
Progress Note, Physician Chief Complaint: Right big toe osteomyelitis History of Present Illness: NAD, Seen by Podiatry, ID and endocrinology on IV abx MRI shows early osteomyelitis ESR 64 - Current Medication List Current Medications: Active Medications Amlodipine Besylate (Norvasc -) 10 mg PO DAILY [facility] Last Admin: 12/28/17 10:00 Dose: 10 mg Aspirin (Asa -) 81 mg PO DAILY [facility] Last Admin: 12/28/17 10:00 Dose: 81 mg Clopidogrel Bisulfate (Plavix -) 75 mg PO DAILY [facility] Last Admin: 12/28/17 10:00 Dose: 75 mg Collagenase (Santyl -) 1 applic TP DAILY [facility] Last Admin: 12/28/17 10:02 Dose: 1 applic Heparin Sodium (Porcine) (Heparin -) 5,000 unit SQ BID [facility] Last Admin: 12/28/17 10:01 Dose: 5,000 unit Sodium Chloride (1/2 Normal Saline) 1,000 mls @ 75 mls/hr IV ASDIR [facility] Last Admin: 12/27/17 17:50 Dose: Not Given Piperacillin Sod/Tazobactam (Sod 2.25 gm/ Sodium Chloride) 50 mls @ 100 mls/hr IVPB Q6H-IV [facility]; Protocol Insulin Aspart (Novolog Vial Sliding Scale -) 1 vial SQ TIDAC [facility]; Protocol Last Admin: 12/28/17 06:10 Dose: Not Given Insulin Aspart (Novolog Vial Sliding Scale -) 1 vial SQ HS [facility]; Protocol Last Admin: 12/27/17 21:37 Dose: 4 units Insulin Detemir (Levemir Vial) 29 units SQ AM [facility] Last Admin: 12/28/17 06:19 Dose: Not Given Insulin Detemir (Levemir Vial) 25 units SQ HS [facility] Lisinopril (Prinivil) 5 mg PO DAILY [facility] Last Admin: 12/28/17 10:00 Dose: 5 mg Metoprolol Succinate (Toprol Xl -) 50 mg PO BID [facility] Last Admin: 12/28/17 10:00 Dose: 50 mg Rosuvastatin Calcium (Crestor -) 40 mg PO DAILY [facility] Last Admin: 12/28/17 10:01 Dose: 40 mg Tamsulosin HCl (Flomax -) 0.4 mg PO HS [facility] Last Admin: 12/27/17 21:24 Dose: 0.4 mg - Objective Vital Signs: Vital Signs Temperature 97.8 F 12/28/17 06:43 Pulse Rate 59 L 12/28/17 06:43 Respiratory Rate 18 12/28/17 06:43 Blood Pressure 134/60 12/28/17 06:43 O2 Sat by Pulse Oximetry (%) 99 12/27/17 03:00 Constitutional: Yes: Well Nourished, No Distress Cardiovascular: Yes: Regular Rate and Rhythm Respiratory: Yes: Regular Gastrointestinal: Yes: Normal Bowel Sounds, Soft Wound/Incision: Yes: Dressing Dry and Intact Neurological: Yes: Alert, Oriented Psychiatric: Yes: Alert, Oriented Labs: CBC, BMP 12/26/17 06:30 12/27/17 06:54 INR, PTT INR 0.96 (0.82-1.09) 12/24/17 22:20 Problem List - Problems (1) CAD (coronary artery disease) Assessment/Plan: aspirin plavix statin- high intensity, LDL at 246 mg/dl BB DION Cardiology on board Code(s): I25.10 - ATHSCL HEART DISEASE OF [place] CORONARY ARTERY W/O ANG PCTRS (2) Diabetic foot infection Assessment/Plan: -ID on board -Also seen by Podiatry -On IV abx -RLE MRI early osteomyelitis -Needs IV abx for 6 weeks: Vancomycin, Cefepime and Flagyl -Plan PICC and d/c to SNF, Pt agrees to [facility] Code(s): E11.628 - TYPE 2 DIABETES MELLITUS WITH OTHER SKIN COMPLICATIONS; L08.9 - LOCAL INFECTION OF THE SKIN AND SUBCUTANEOUS TISSUE, UNSP (3) Diabetes mellitus, insulin dependent (IDDM), uncontrolled Assessment/Plan: A1C 11.8 -Endocrinology consult -BGM ACHS -Diabetic diet -avoid mixing IV abx with D5W -Insulin: Levemir and Novolog -RD consult Code(s): E10.65 - TYPE 1 DIABETES MELLITUS WITH HYPERGLYCEMIA (4) Renal insufficiency Assessment/Plan: -nephrology on board -Close to baseline -monitor trend Code(s): N28.9 - DISORDER OF KIDNEY AND URETER, UNSPECIFIED Assessment/Plan see problem list DVT prophylaxis
--- NOTE | 2017-12-28 12:04 | PN ---
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: ID MRI report noted early osteomyelitis Selected Entries 12/28/17 06:43 Temperature 97.8 F Pulse Rate 59 L Blood Pressure 134/60 Laboratory Tests 12/26/17 12/26/17 06:30 07:10 WBC 6.8 Hgb 12.5 Plt Count 152 ESR Pending Assessment Early osteomyeltitis Needs empiric IV therapy Plan Vancomycin Cefepime empiric Shanika CHAVEZ Problem List - Problems (1) Diabetic foot infection Code(s): E11.628 - TYPE 2 DIABETES MELLITUS WITH OTHER SKIN COMPLICATIONS; L08.9 - LOCAL INFECTION OF THE SKIN AND SUBCUTANEOUS TISSUE, UNSP (2) Diabetes mellitus, insulin dependent (IDDM), uncontrolled Code(s): E10.65 - TYPE 1 DIABETES MELLITUS WITH HYPERGLYCEMIA
[2017-12-28] MEDS ORDERED: VANCOMYCIN 1 GM PREMIX - 1 GM/200 ML BAG IVPB ONE (12:11)
[2017-12-28] MEDS ORDERED: PT OWN MED DRAWER 7, Y5N ONE ×3 (12:31→20:26)
[2017-12-28] MEDS ORDERED: INSULIN (LEVEMIR) 100 UNITS/ML UNITS SQ ONE (12:42)
[2017-12-28] MEDS ORDERED: INSULIN (NOVOLOG) ASPART 100 UNITS/ML 10ML VIAL ONE (12:42)
[2017-12-28] MEDS: CEFEPIME 1 GM in DEXTROSE 5%-WATER - 100 ML IVPB SCH (14:31)
--- NOTE | 2017-12-28 15:51 | PN ---
Progress Note, Physician History of Present Illness: Pt seen and examined at bedside. He is awake and alert. He denies shortness of breath. - Current Medication List Current Medications: Active Medications Amlodipine Besylate (Norvasc -) 10 mg PO DAILY [facility] Last Admin: 12/28/17 10:00 Dose: 10 mg Aspirin (Asa -) 81 mg PO DAILY [facility] Last Admin: 12/28/17 10:00 Dose: 81 mg Clopidogrel Bisulfate (Plavix -) 75 mg PO DAILY [facility] Last Admin: 12/28/17 10:00 Dose: 75 mg Collagenase (Santyl -) 1 applic TP DAILY [facility] Last Admin: 12/28/17 10:02 Dose: 1 applic Heparin Sodium (Porcine) (Heparin -) 5,000 unit SQ BID [facility] Last Admin: 12/28/17 10:01 Dose: 5,000 unit Sodium Chloride (1/2 Normal Saline) 1,000 mls @ 75 mls/hr IV ASDIR [facility] Last Admin: 12/27/17 17:50 Dose: Not Given Piperacillin Sod/Tazobactam (Sod 2.25 gm/ Sodium Chloride) 50 mls @ 100 mls/hr IVPB Q6H-IV [facility]; Protocol Cefepime HCl 1 gm/ Dextrose 100 mls @ 200 mls/hr IVPB DAILY [facility]; Protocol Last Admin: 12/28/17 14:31 Dose: 200 mls/hr Insulin Aspart (Novolog Vial Sliding Scale -) 1 vial SQ TIDAC [facility]; Protocol Last Admin: 12/28/17 12:19 Dose: 4 units Insulin Aspart (Novolog Vial Sliding Scale -) 1 vial SQ HS [facility]; Protocol Last Admin: 12/27/17 21:37 Dose: 4 units Insulin Detemir (Levemir Vial) 29 units SQ AM [facility] Last Admin: 12/28/17 06:19 Dose: Not Given Insulin Detemir (Levemir Vial) 25 units SQ HS [facility] Lisinopril (Prinivil) 5 mg PO DAILY [facility] Last Admin: 12/28/17 10:00 Dose: 5 mg Metoprolol Succinate (Toprol Xl -) 50 mg PO BID [facility] Last Admin: 12/28/17 10:00 Dose: 50 mg Rosuvastatin Calcium (Crestor -) 40 mg PO DAILY [facility] Last Admin: 12/28/17 10:01 Dose: 40 mg Tamsulosin HCl (Flomax -) 0.4 mg PO HS [facility] Last Admin: 12/27/17 21:24 Dose: 0.4 mg - Objective Vital Signs: Vital Signs Temperature 98.1 F 12/28/17 14:00 Pulse Rate 57 L 12/28/17 14:00 Respiratory Rate 18 12/28/17 14:00 Blood Pressure 126/57 12/28/17 14:00 O2 Sat by Pulse Oximetry (%) 98 12/28/17 09:00 Constitutional: Yes: Calm Eyes: Yes: Conjunctiva Clear HENT: Yes: Atraumatic Cardiovascular: Yes: S1, S2 Respiratory: Yes: CTA Bilaterally Gastrointestinal: Yes: Normal Bowel Sounds, Soft Edema: No Neurological: Yes: Oriented Psychiatric: Yes: Oriented Labs: CBC, BMP 12/26/17 06:30 12/27/17 06:54 INR, PTT INR 0.96 (0.82-1.09) 12/24/17 22:20 Problem List - Problems (1) CAD (coronary artery disease) Code(s): I25.10 - ATHSCL HEART DISEASE OF [place] CORONARY ARTERY W/O ANG PCTRS (2) Hyperglycemia Code(s): R73.9 - HYPERGLYCEMIA, UNSPECIFIED (3) Renal insufficiency Code(s): N28.9 - DISORDER OF KIDNEY AND URETER, UNSPECIFIED Assessment/Plan Current Medications Generic Name Dose Route Start Last Admin Trade Name Chapo PRN Reason Stop Dose Admin Amlodipine Besylate 10 mg 12/25/17 12:30 12/28/17 10:00 Norvasc - PO 10 mg DAILY [facility] Administration Aspirin 81 mg 12/25/17 10:00 12/28/17 10:00 Asa - PO 81 mg DAILY [facility] Administration Clopidogrel Bisulfate 75 mg 12/25/17 10:00 12/28/17 10:00 Plavix - PO 75 mg DAILY [facility] Administration Collagenase 1 applic 12/25/17 11:15 12/28/17 10:02 Santyl - TP 1 applic DAILY [facility] Administration Heparin Sodium (Porcine) 5,000 unit 12/25/17 22:00 12/28/17 10:01 Heparin - SQ 5,000 unit BID [facility] Administration Sodium Chloride 1,000 mls @ 75 mls/hr 12/27/17 16:00 12/27/17 17:50 1/2 Normal Saline IV Not Given ASDIR [facility] Piperacillin Sod/Tazobactam 50 mls @ 100 mls/hr 12/28/17 12:11 Sod 2.25 gm/ Sodium Chloride IVPB Q6H-IV [facility] Protocol Cefepime HCl 1 gm/ Dextrose 100 mls @ 200 mls/hr 12/28/17 12:30 12/28/17 14: 31 IVPB 200 mls/hr DAILY [facility] Administration Protocol Insulin Aspart 1 vial 12/25/17 07:00 12/28/17 12:19 Novolog Vial Sliding Scale - SQ 4 units TIDAC [facility] Administration Protocol Insulin Aspart 1 vial 12/26/17 16:50 12/27/17 21:37 Novolog Vial Sliding Scale - SQ 4 units HS [facility] Administration Protocol Insulin Detemir 29 units 12/28/17 07:00 12/28/17 06:19 Levemir Vial SQ Not Given AM [facility] Insulin Detemir 25 units 12/28/17 22:00 Levemir Vial SQ HS [facility] Lisinopril 5 mg 12/25/17 10:00 12/28/17 10:00 Prinivil PO 5 mg DAILY [facility] Administration Metoprolol Succinate 50 mg 12/26/17 08:56 12/28/17 10:00 Toprol Xl - PO 50 mg BID [facility] Administration Rosuvastatin Calcium 40 mg 12/25/17 10:00 12/28/17 10:01 Crestor - PO 40 mg DAILY [facility] Administration Tamsulosin HCl 0.4 mg 12/25/17 22:00 12/27/17 21:24 Flomax - PO 0.4 mg HS [facility] Administration Impression 1. CKD 2. DM 3. HTN 4. DFU 5. HLD 6. BPH 7. osteo Plan - check bmp - abs per ID - low potassium diet - will need outpt workup Dr Porter
[2017-12-28] MEDS: PIPERACILLIN/TAZOB 2.25 GM 2.25 GM in SODIUM CHLORIDE 50 ML IVPB SCH ×2 (17:59→20:26)
[2017-12-28] MEDS: SODIUM CHLORIDE 0.45% 1,000 ML IV SCH (17:59)
[2017-12-28] MEDS: TAMSULOSIN HCL 0.4 MG CAP.ER.24H (FP) PO SCH (22:11)
[2017-12-29] MEDS ORDERED: PT OWN MED DRAWER 7, Y5N ONE ×4 (02:47→22:03)
[2017-12-29] MEDS: PIPERACILLIN/TAZOB 2.25 GM 2.25 GM in SODIUM CHLORIDE 50 ML IVPB SCH ×2 (02:50→09:59)
[2017-12-29] MEDS: INSULIN (LEVEMIR) 100 UNITS/ML UNITS SQ SCH ×2 (06:12→22:08)
[2017-12-29] MEDS: INSULIN SLIDING SCALE (NOVOLOG) 1 VIAL SQ SCH ×4 (06:13→22:10)
[2017-12-29 07:58] LABS: BASO % 0.7 % (0-2.0); EOS % 3.2 % (0-4.5); HEMATOCRIT 35.5 % (35.4-49); HEMOGLOBIN 11.8 GM/dL (11.7-16.9); LYMPH % 11.1 % (8-40); MCH 28.7 pg (25.7-33.7); MCHC 33.3 g/dl (32.0-35.9); MEAN CELL VOLUME 86.1 fl (80-96); MEAN PLT VOLUME 9.8 fl (7.5-11.1); MONO % 10.8 % (3.8-10.2); NEUT % 74.2 % (42.8-82.8); PLATELET COUNT 162 K/MM3 (134-434); RBC 4.13 M/mm3 (4.00-5.60); RDW 15.3 % (11.9-15.9); WHITE BLOOD COUNT 7.3 K/mm3 (4.0-10.0)
[2017-12-29 08:19] LABS: ANION GAP 6 (8-16); BLOOD UREA NITROGEN 34 mg/dL (7-18); CALCIUM 8.5 mg/dL (8.5-10.1); CHLORIDE 108 mmol/L (98-107); CO2 25 mmol/L (21-32); CREATININE 1.9 mg/dL (0.7-1.3); GLUCOSE,RANDOM 95 mg/dL (74-106); POTASSIUM 4.7 mmol/L (3.5-5.1); SODIUM 139 mmol/L (136-145)
[2017-12-29] MEDS ORDERED: ROSUVASTATIN CA 10 MG TABLET (FP) ONE (09:55)
[2017-12-29] MEDS: CEFEPIME 1 GM in DEXTROSE 5%-WATER - 100 ML IVPB SCH (09:58)
[2017-12-29] MEDS: ASPIRIN 81 MG CHEWABLE TABLETS PO SCH (09:59)
[2017-12-29] MEDS: LISINOPRIL 5 MG TABLET (FP) PO SCH (09:59)
[2017-12-29] MEDS: amLODIPine BESYLATE 10 MG TABLET (FP) PO SCH (09:59)
[2017-12-29] MEDS: CLOPIDOGREL BISULFATE 75 MG TABLET (FP) PO SCH (09:59)
[2017-12-29] MEDS: HEPARIN NA (PORCINE) 5,000 UNITS/ML 1ML VIAL SQ SCH ×2 (10:00→22:08)
[2017-12-29] MEDS: ROSUVASTATIN CA 20 MG TABLET (FP) PO SCH (10:00)
[2017-12-29] MEDS: COLLAGENASE CLOSTRIDIUM HIST. 30 GRAMS TUBE TP SCH (10:01)
--- NOTE | 2017-12-29 10:14 | PN ---
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: FUV big toes. vss, tmax=98.2 dp 2/4 b/l, pt .5/4 b/l, +grade 2-3 wounds b/l hallux, +b/l ulcerations of medial big toes. om right big toe, no om left big toe, esr=64, grade 2-3 wounds b/l big toes r/o om Santyl to wounds for now. Patient states he will be going to rehab center. Spoke with his sister states he has many stairs to climb. She states would be better for him. Follow up in [facility] next Thursday. Had HBO consult done.
--- NOTE | 2017-12-29 10:47 | PN ---
Progress Note, Physician Chief Complaint: Right big toe osteomyelitis History of Present Illness: NAD, Seen by Podiatry, ID and endocrinology on IV abx MRI shows early osteomyelitis ESR 64 - Current Medication List Current Medications: Active Medications Amlodipine Besylate (Norvasc -) 10 mg PO DAILY [facility] Last Admin: 12/29/17 09:59 Dose: 10 mg Aspirin (Asa -) 81 mg PO DAILY [facility] Last Admin: 12/29/17 09:59 Dose: 81 mg Clopidogrel Bisulfate (Plavix -) 75 mg PO DAILY [facility] Last Admin: 12/29/17 09:59 Dose: 75 mg Collagenase (Santyl -) 1 applic TP DAILY [facility] Last Admin: 12/29/17 10:01 Dose: 1 applic Heparin Sodium (Porcine) (Heparin -) 5,000 unit SQ BID [facility] Last Admin: 12/29/17 10:00 Dose: 5,000 unit Piperacillin Sod/Tazobactam (Sod 2.25 gm/ Sodium Chloride) 50 mls @ 100 mls/hr IVPB Q6H-IV [facility]; Protocol Last Admin: 12/29/17 09:59 Dose: 100 mls/hr Cefepime HCl 1 gm/ Dextrose 100 mls @ 200 mls/hr IVPB DAILY [facility]; Protocol Last Admin: 12/29/17 09:58 Dose: 200 mls/hr Sodium Chloride (1/2 Normal Saline) 1,000 mls @ 50 mls/hr IV ASDIR [facility] Stop: 12/29/17 15:53 Last Admin: 12/28/17 17:59 Dose: 50 mls/hr Insulin Aspart (Novolog Vial Sliding Scale -) 1 vial SQ TIDAC [facility]; Protocol Last Admin: 12/29/17 06:13 Dose: Not Given Insulin Aspart (Novolog Vial Sliding Scale -) 1 vial SQ HS [facility]; Protocol Last Admin: 12/28/17 22:20 Dose: 4 units Insulin Detemir (Levemir Vial) 29 units SQ AM [facility] Last Admin: 12/29/17 06:12 Dose: 29 units Insulin Detemir (Levemir Vial) 25 units SQ HS [facility] Last Admin: 12/28/17 22:19 Dose: 25 units Lisinopril (Prinivil) 5 mg PO DAILY [facility] Last Admin: 12/29/17 09:59 Dose: 5 mg Metoprolol Succinate (Toprol Xl -) 50 mg PO BID [facility] Last Admin: 12/29/17 09:59 Dose: 50 mg Rosuvastatin Calcium (Crestor -) 40 mg PO DAILY [facility] Last Admin: 12/29/17 10:00 Dose: 40 mg Tamsulosin HCl (Flomax -) 0.4 mg PO HS [facility] Last Admin: 12/28/17 22:11 Dose: 0.4 mg - Objective Vital Signs: Vital Signs Temperature 98.2 F 12/29/17 06:05 Pulse Rate 56 L 12/29/17 06:05 Respiratory Rate 18 12/29/17 06:05 Blood Pressure 129/67 12/29/17 06:05 O2 Sat by Pulse Oximetry (%) 98 12/28/17 21:00 Constitutional: Yes: Well Nourished, No Distress, Calm Cardiovascular: Yes: Regular Rate and Rhythm Respiratory: Yes: Regular Gastrointestinal: Yes: Normal Bowel Sounds, Soft Wound/Incision: Yes: Dressing Dry and Intact Neurological: Yes: Alert, Oriented Psychiatric: Yes: Alert, Oriented Labs: CBC, BMP 12/29/17 06:50 12/29/17 06:50 INR, PTT INR 0.96 (0.82-1.09) 12/24/17 22:20 Problem List - Problems (1) CAD (coronary artery disease) Assessment/Plan: aspirin plavix statin- high intensity, LDL at 246 mg/dl BB [facility] on board Code(s): I25.10 - ATHSCL HEART DISEASE OF [place] CORONARY ARTERY W/O ANG PCTRS (2) Diabetic foot infection Assessment/Plan: -ID on board -Also seen by Podiatry -On IV abx -RLE MRI early osteomyelitis -Needs IV abx for 6 weeks: Vancomycin, Cefepime and Flagyl -Plan PICC and d/c to SNF, Pt agrees to [facility] -Needs HBO after discharge from rehab Code(s): E11.628 - TYPE 2 DIABETES MELLITUS WITH OTHER SKIN COMPLICATIONS; L08.9 - LOCAL INFECTION OF THE SKIN AND SUBCUTANEOUS TISSUE, UNSP (3) Diabetes mellitus, insulin dependent (IDDM), uncontrolled Assessment/Plan: A1C 11.8 -Endocrinology consult -BGM ACHS -Diabetic diet -avoid mixing IV abx with D5W -Insulin: Levemir and Novolog -RD consult Code(s): E10.65 - TYPE 1 DIABETES MELLITUS WITH HYPERGLYCEMIA (4) Renal insufficiency Assessment/Plan: -nephrology on board -Close to baseline -monitor trend Code(s): N28.9 - DISORDER OF KIDNEY AND URETER, UNSPECIFIED Assessment/Plan see problem list DVT prophylaxis
--- NOTE | 2017-12-29 13:19 | PN ---
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: no compllaints multiple callouses on his feet nontender MRI with early osteo CBC, BMP 12/29/17 06:50 12/29/17 06:50 Laboratory Tests 12/25/17 12/26/17 12/29/17 07:00 07:10 12:10 ESR 64 H C-Reactive Protein 0.3 Random Vancomycin 9.64 Microbiology 12/24/17 22:20 Blood - Peripheral Venous Blood Culture - Preliminary NO GROWTH OBTAINED AFTER 96 HOURS, INCUBATION TO CONTINUE FOR 1 DAYS. 12/24/17 22:20 Blood - Peripheral Venous Blood Culture - Preliminary NO GROWTH OBTAINED AFTER 96 HOURS, INCUBATION TO CONTINUE FOR 1 DAYS. a/p Dr Voss's note reviewed plan for detention iv cefepime and vancomycin-for osteomyelitis- 6 weeks renal function improving will redose vancomycin , if creatinine stabilized may be able to switch to daily vancomycin increase cefepime to q12h
[2017-12-29] MEDS ORDERED: CEFEPIME 1 GM in DEXTROSE 5%-WATER - 100 ML IVPB SCH (13:30)
[2017-12-29] MEDS ORDERED: VANCOMYCIN 1 GM PREMIX - 1 GM/200 ML BAG IVPB ONE (13:45)
[2017-12-29] MEDS: SODIUM CHLORIDE 0.45% 1,000 ML IV SCH (14:54)
[2017-12-29] MEDS: metroNIDAZOLE 500 MG TABLET PO SCH ×2 (14:55→22:07)
[2017-12-29 15:51] VITALS: BMI 23.6
--- NOTE | 2017-12-29 16:26 | PN ---
Progress Note, Physician History of Present Illness: Pt seen and examined at bedside. He denies shortness of breath. - Current Medication List Current Medications: Active Medications Amlodipine Besylate (Norvasc -) 10 mg PO DAILY [facility] Last Admin: 12/29/17 09:59 Dose: 10 mg Aspirin (Asa -) 81 mg PO DAILY [facility] Last Admin: 12/29/17 09:59 Dose: 81 mg Clopidogrel Bisulfate (Plavix -) 75 mg PO DAILY [facility] Last Admin: 12/29/17 09:59 Dose: 75 mg Collagenase (Santyl -) 1 applic TP DAILY [facility] Last Admin: 12/29/17 10:01 Dose: 1 applic Heparin Sodium (Porcine) (Heparin -) 5,000 unit SQ BID [facility] Last Admin: 12/29/17 10:00 Dose: 5,000 unit Cefepime HCl (Maxipime 1 Gm Premix Ivpb) 1 gm in 50 mls @ 200 mls/hr IVPB Q12H [facility]; Protocol Insulin Aspart (Novolog Vial Sliding Scale -) 1 vial SQ TIDAC [facility]; Protocol Last Admin: 12/29/17 12:12 Dose: Not Given Insulin Aspart (Novolog Vial Sliding Scale -) 1 vial SQ HS [facility]; Protocol Last Admin: 12/28/17 22:20 Dose: 4 units Insulin Detemir (Levemir Vial) 29 units SQ AM [facility] Last Admin: 12/29/17 06:12 Dose: 29 units Insulin Detemir (Levemir Vial) 25 units SQ HS [facility] Last Admin: 12/28/17 22:19 Dose: 25 units Lisinopril (Prinivil) 5 mg PO DAILY [facility] Last Admin: 12/29/17 09:59 Dose: 5 mg Metoprolol Succinate (Toprol Xl -) 50 mg PO BID [facility] Last Admin: 12/29/17 09:59 Dose: 50 mg Metronidazole (Flagyl -) 500 mg PO TID [facility] Last Admin: 12/29/17 14:55 Dose: 500 mg Rosuvastatin Calcium (Crestor -) 40 mg PO DAILY [facility] Last Admin: 12/29/17 10:00 Dose: 40 mg Tamsulosin HCl (Flomax -) 0.4 mg PO HS [facility] Last Admin: 12/28/17 22:11 Dose: 0.4 mg - Objective Vital Signs: Vital Signs Temperature 98.2 F 06/26/18 15:08 Pulse Rate 69 12/29/17 15:08 Respiratory Rate 18 12/29/17 15:08 Blood Pressure 150/76 12/29/17 15:08 O2 Sat by Pulse Oximetry (%) 99 12/29/17 09:00 Constitutional: Yes: Calm Eyes: Yes: Conjunctiva Clear HENT: Yes: Atraumatic Cardiovascular: Yes: S1, S2 Respiratory: Yes: CTA Bilaterally Gastrointestinal: Yes: Soft Genitourinary: Yes: WNL Musculoskeletal: Yes: WNL Edema: No Wound/Incision: Yes: Dressing Dry and Intact Neurological: Yes: Oriented Labs: CBC, BMP 12/29/17 06:50 12/29/17 06:50 INR, PTT INR 0.96 (0.82-1.09) 12/24/17 22:20 Problem List - Problems (1) CAD (coronary artery disease) Code(s): I25.10 - ATHSCL HEART DISEASE OF [place] CORONARY ARTERY W/O ANG PCTRS (2) Hyperglycemia Code(s): R73.9 - HYPERGLYCEMIA, UNSPECIFIED (3) Renal insufficiency Code(s): N28.9 - DISORDER OF KIDNEY AND URETER, UNSPECIFIED Assessment/Plan Current Medications Generic Name Dose Route Start Last Admin Trade Name Freq PRN Reason Stop Dose Admin Amlodipine Besylate 10 mg 12/25/17 12:30 12/29/17 09:59 Norvasc - PO 10 mg DAILY [facility] Administration Aspirin 81 mg 12/25/17 10:00 12/29/17 09:59 Asa - PO 81 mg DAILY [facility] Administration Clopidogrel Bisulfate 75 mg 12/25/17 10:00 12/29/17 09:59 Plavix - PO 75 mg DAILY [facility] Administration Collagenase 1 applic 12/25/17 11:15 12/29/17 10:01 Santyl - TP 1 applic DAILY [facility] Administration Heparin Sodium (Porcine) 5,000 unit 12/25/17 22:00 12/29/17 10:00 Heparin - SQ 5,000 unit BID [facility] Administration Cefepime HCl 1 gm in 50 mls @ 200 mls/hr 12/29/17 22:00 Maxipime 1 Gm Premix Ivpb IVPB Q12H [facility] Protocol Insulin Aspart 1 vial 12/25/17 07:00 12/29/17 12:12 Novolog Vial Sliding Scale - SQ Not Given TIDAC [facility] Protocol Insulin Aspart 1 vial 12/26/17 16:50 12/28/17 22:20 Novolog Vial Sliding Scale - SQ 4 units HS [facility] Administration Protocol Insulin Detemir 29 units 12/28/17 07:00 12/29/17 06:12 Levemir Vial SQ 29 units AM [facility] Administration Insulin Detemir 25 units 12/28/17 22:00 12/28/17 22:19 Levemir Vial SQ 25 units HS [facility] Administration Lisinopril 5 mg 12/25/17 10:00 12/29/17 09:59 Prinivil PO 5 mg DAILY [facility] Administration Metoprolol Succinate 50 mg 12/26/17 08:56 12/29/17 09:59 Toprol Xl - PO 50 mg BID [facility] Administration Metronidazole 500 mg 12/29/17 14:00 12/29/17 14:55 Flagyl - PO 500 mg TID [facility] Administration Rosuvastatin Calcium 40 mg 12/25/17 10:00 12/29/17 10:00 Crestor - PO 40 mg DAILY [facility] Administration Tamsulosin HCl 0.4 mg 12/25/17 22:00 12/28/17 22:11 Flomax - PO 0.4 mg HS [facility] Administration Impression 1. CKD 2. DM 3. HTN 4. DFU 5. HLD 6. BPH 7. osteo 8. proteinuria Plan - will need proteinuria workup - monitor vanco levels - low potassium diet - discussed plan with pt and his sister - pt on mal, should help with proteinuria Dr Porter
--- NOTE | 2017-12-29 21:55 | DS ---
Physical Examination Vital Signs: Vital Signs Temperature 98.0 F 12/29/17 18:00 Pulse Rate 63 12/29/17 18:00 Respiratory Rate 18 12/29/17 18:00 Blood Pressure 147/74 12/29/17 18:00 O2 Sat by Pulse Oximetry (%) 99 12/29/17 09:00 Constitutional: Yes: Well Nourished, No Distress, Calm Cardiovascular: Yes: Regular Rate and Rhythm Respiratory: Yes: Regular Gastrointestinal: Yes: Normal Bowel Sounds, Soft Wound/Incision: Yes: Dressing Dry and Intact Neurological: Yes: Alert, Oriented Psychiatric: Yes: Alert, Oriented Labs: CBC, BMP 12/29/17 06:50 12/29/17 06:50 Discharge Summary Reason For Visit: HYPERGLYCEMIA INFECTED BLISTER ON GREAT Current Active Problems CAD (coronary artery disease) (Acute) Diabetic foot infection (Acute) Hyperglycemia (Acute) Hospital Course: This is a 67 year old male with a past medical history of DM, HTN, HLD, CAD who presented to the ED from his PCP office for foot wounds. He states he has had them for months. He denies pain. MRI confirmed early osteomyelitis in the right foot Microbiology 12/24/17 22:20 Blood - Peripheral Venous Blood Culture - Final NO GROWTH AFTER 5 DAYS INCUBATION 12/24/17 22:20 Blood - Peripheral Venous Blood Culture - Final NO GROWTH AFTER 5 DAYS INCUBATION - Instructions Diet, Activity, Other Instructions: Follow up with nephrology outpatient within 4 weeks Metronidazole 500 mg po TID x for 3 weeks Cefepime 1 gm daily for 6 weeks Vancomycin 1 gm daily for 6 weeks [facility] Santyl on wound daily Referrals: Ishan Dumas MD [Primary Care Provider] - Macy Porter MD [Staff Physician] - Rafa Ocampo DPM [Staff Physician] - Disposition: RESIDENTIAL FACILITY - Home Medications Comprehensive Discharge Medication List: Ambulatory Orders Aspirin [ASA -] 81 mg PO DAILY 07/19/16 Clopidogrel Bisulfate [Plavix -] 75 mg PO DAILY 07/19/16 Metoprolol Succinate [Toprol XL -] 25 mg PO BID 07/19/16 Rosuvastatin [Crestor -] 40 mg PO DAILY 07/19/16 Lisinopril [Prinivil] 5 mg PO DAILY #30 tablet 07/23/16 Tamsulosin HCl [Flomax] 0.4 mg PO HS #7 cap.er.24h 06/07/17 Amlodipine Besylate [Norvasc -] 10 mg PO DAILY tablet 12/29/17 Cefepime [Maxipime (Restricted To Id) -] 1 gm IVPB DAILY vial 12/29/17 Collagenase Clostridium Hist. [Santyl -] 1 applic TP DAILY tube 12/29/17 Heparin - 5,000 unit SQ BID vial 12/29/17 Insulin (Levemir) [Levemir Vial] 25 units SQ HS units 12/29/17 Insulin (Levemir) [Levemir Vial] 29 units SQ AM units 12/29/17 Insulin Sliding Scale [Novolog Vial Sliding Scale -] 1 vial SQ HS units Insulin Sliding Scale [Novolog Vial Sliding Scale -] 1 vial SQ TIDAC units [facility] [Flagyl -] 500 mg PO TID tablet 12/29/17
[2017-12-29] MEDS: TAMSULOSIN HCL 0.4 MG CAP.ER.24H (FP) PO SCH (22:07)
[2017-12-29] MEDS: CEFEPIME HCL/D5W 1 GM/50 ML BAG IVPB SCH (22:08)
[2017-12-29] MEDS ORDERED: INSULIN (NOVOLOG) ASPART 100 UNITS/ML 10ML VIAL ONE (22:10)
[2017-12-29] MEDS ORDERED: LISINOPRIL 5 MG TABLET (FP) PO ONE (22:54)
[2017-12-29] MEDS ORDERED: SODIUM CHLORIDE NASAL SPRAY 44 ML BOTTLE NS PRN (23:04)
--- NOTE | 2017-12-30 00:35 | PN ---
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 History of Present Illness: dm, hyperglycmia,diabetic neuropathy,htn,hyperlipidemia,diabetic foot infection improving clinically - Current Medication List Current Medications: Active Medications Amlodipine Besylate (Norvasc -) 10 mg PO DAILY [facility] Last Admin: 12/29/17 09:59 Dose: 10 mg Aspirin (Asa -) 81 mg PO DAILY [facility] Last Admin: 12/29/17 09:59 Dose: 81 mg Clopidogrel Bisulfate (Plavix -) 75 mg PO DAILY [facility] Last Admin: 12/29/17 09:59 Dose: 75 mg Collagenase (Santyl -) 1 applic TP DAILY [facility] Last Admin: 12/29/17 10:01 Dose: 1 applic Heparin Sodium (Porcine) (Heparin -) 5,000 unit SQ BID [facility] Last Admin: 12/29/17 22:08 Dose: 5,000 unit Cefepime HCl (Maxipime 1 Gm Premix Ivpb) 1 gm in 50 mls @ 200 mls/hr IVPB Q12H [facility]; Protocol Last Admin: 12/29/17 22:08 Dose: 200 mls/hr Insulin Aspart (Novolog Vial Sliding Scale -) 1 vial SQ TIDAC [facility]; Protocol Last Admin: 12/29/17 18:03 Dose: Not Given Insulin Aspart (Novolog Vial Sliding Scale -) 1 vial SQ HS [facility]; Protocol Last Admin: 12/29/17 22:10 Dose: 4 units Insulin Detemir (Levemir Vial) 29 units SQ AM [facility] Last Admin: 12/29/17 06:12 Dose: 29 units Insulin Detemir (Levemir Vial) 25 units SQ HS [facility] Last Admin: 12/29/17 22:08 Dose: 25 units Lisinopril (Prinivil) 5 mg PO DAILY [facility] Last Admin: 12/29/17 09:59 Dose: 5 mg Metoprolol Succinate (Toprol Xl -) 50 mg PO BID [facility] Last Admin: 12/29/17 22:07 Dose: 50 mg Metronidazole (Flagyl -) 500 mg PO TID [facility] Last Admin: 12/29/17 22:07 Dose: 500 mg Rosuvastatin Calcium (Crestor -) 40 mg PO DAILY [facility] Last Admin: 12/29/17 10:00 Dose: 40 mg Sodium Chloride ([place] -) 2 spray NS BID PRN PRN Reason: NASAL CONGESTION Tamsulosin HCl (Flomax -) 0.4 mg PO HS [facility] Last Admin: 12/29/17 22:07 Dose: 0.4 mg - Objective Vital Signs: Vital Signs Temperature 98.0 F 12/29/17 18:00 Pulse Rate 63 12/29/17 18:00 Respiratory Rate 18 12/29/17 18:00 Blood Pressure 147/74 12/29/17 18:00 O2 Sat by Pulse Oximetry (%) 99 12/29/17 09:00 Constitutional: Yes: Well Nourished Eyes: Yes: EOM Intact HENT: Yes: Normocephalic Neck: Yes: Trachea Midline Cardiovascular: Yes: Regular Rate and Rhythm Respiratory: Yes: CTA Bilaterally Gastrointestinal: Yes: Normal Bowel Sounds ...Rectal Exam: Yes: Deferred Genitourinary: Yes: WNL Breast(s): Yes: WNL Musculoskeletal: Yes: WNL Extremities: Yes: WNL Edema: No Wound/Incision: Yes: Well Approximated, Dressing Dry and Intact Neurological: Yes: Alert, Oriented Labs: CBC, BMP 12/29/17 06:50 12/29/17 06:50 INR, PTT INR 0.96 (0.82-1.09) 12/24/17 22:20 Problem List - Problems (1) CAD (coronary artery disease) Code(s): I25.10 - ATHSCL HEART DISEASE OF [place] CORONARY ARTERY W/O ANG PCTRS (2) Diabetic foot infection Code(s): E11.628 - TYPE 2 DIABETES MELLITUS WITH OTHER SKIN COMPLICATIONS; L08.9 - LOCAL INFECTION OF THE SKIN AND SUBCUTANEOUS TISSUE, UNSP (3) Hyperglycemia Code(s): R73.9 - HYPERGLYCEMIA, UNSPECIFIED (4) Aortic root dilatation Code(s): I77.810 - THORACIC AORTIC ECTASIA (5) BPH (benign prostatic hypertrophy) Code(s): N40.0 - BENIGN PROSTATIC HYPERPLASIA WITHOUT LOWER URINRY TRACT SYMP Qualifiers: Lower urinary tract symptom presence: symptoms present Qualified Code(s): N40.1 - Benign prostatic hyperplasia with lower urinary tract symptoms (6) Congestive heart failure Code(s): I50.9 - HEART FAILURE, UNSPECIFIED (7) Diabetes mellitus, insulin dependent (IDDM), uncontrolled Code(s): E10.65 - TYPE 1 DIABETES MELLITUS WITH HYPERGLYCEMIA Assessment/Plan Current Active Problems CAD (coronary artery disease) (Acute) Diabetic foot infection (Acute) Hyperglycemia (Acute) Abnormal Lab Results 12/29/17 12/29/17 06:50 06:50 Monocytes % 10.8 H Chloride 108 H Anion Gap 6 L BUN 34 H Creatinine 1.9 H Laboratory Results - last 24 hr 12/29/17 12/29/17 12/29/17 05:56 06:50 06:50 WBC 7.3 RBC 4.13 Hgb 11.8 Hct 35.5 MCV 86.1 MCH 28.7 MCHC 33.3 RDW 15.3 Plt Count 162 MPV 9.8 Absolute Neuts (auto) 5.5 Neutrophils % 74.2 Lymphocytes % 11.1 Monocytes % 10.8 H Eosinophils % 3.2 Basophils % 0.7 Nucleated RBC % 0 Sodium 139 Potassium 4.7 Chloride 108 H Carbon Dioxide 25 Anion Gap 6 L BUN 34 H Creatinine 1.9 H Creat Clearance w eGFR 35.64 POC Glucometer 114 Random Glucose 95 D Calcium 8.5 Random Vancomycin 12/29/17 12/29/17 12/29/17 12:10 12:11 17:32 WBC RBC Hgb Hct MCV MCH MCHC RDW Plt Count MPV Absolute Neuts (auto) Neutrophils % Lymphocytes % Monocytes % Eosinophils % Basophils % Nucleated RBC % Sodium Potassium Chloride Carbon Dioxide Anion Gap BUN Creatinine Creat Clearance w eGFR POC Glucometer 129 148 Random Glucose Calcium Random Vancomycin 9.64 12/29/17 21:18 WBC RBC Hgb Hct MCV MCH MCHC RDW Plt Count MPV Absolute Neuts (auto) Neutrophils % Lymphocytes % Monocytes % Eosinophils % Basophils % Nucleated RBC % Sodium Potassium Chloride Carbon Dioxide Anion Gap BUN Creatinine Creat Clearance w eGFR POC Glucometer 204 Random Glucose Calcium Random Vancomycin plan: iv antibiotic treat with wound care inulin doses to titrate as outpatient Current Medications Generic Name Dose Route Start Last Admin Trade Name Freq PRN Reason Stop Dose Admin Amlodipine Besylate 10 mg 12/25/17 12:30 12/29/17 09:59 Norvasc - PO 10 mg DAILY [facility] Administration Aspirin 81 mg 12/25/17 10:00 12/29/17 09:59 Asa - PO 81 mg DAILY [facility] Administration Clopidogrel Bisulfate 75 mg 12/25/17 10:00 12/29/17 09:59 Plavix - PO 75 mg DAILY [facility] Administration Collagenase 1 applic 12/25/17 11:15 12/29/17 10:01 Santyl - TP 1 applic DAILY [facility] Administration Heparin Sodium (Porcine) 5,000 unit 12/25/17 22:00 12/29/17 22:08 Heparin - SQ 5,000 unit BID [facility] Administration Cefepime HCl 1 gm in 50 mls @ 200 mls/hr 12/29/17 22:00 12/29/17 22:08 Maxipime 1 Gm Premix Ivpb IVPB 200 mls/hr Q12H [facility] Administration Protocol Insulin Aspart 1 vial 12/25/17 07:00 12/29/17 18:03 Novolog Vial Sliding Scale - SQ Not Given TIDAC [facility] Protocol Insulin Aspart 1 vial 12/26/17 16:50 12/29/17 22:10 Novolog Vial Sliding Scale - SQ 4 units HS [facility] Administration Protocol Insulin Detemir 29 units 12/28/17 07:00 12/29/17 06:12 Levemir Vial SQ 29 units AM [facility] Administration Insulin Detemir 25 units 12/28/17 22:00 12/29/17 22:08 Levemir Vial SQ 25 units HS [facility] Administration Lisinopril 5 mg 12/25/17 10:00 12/29/17 09:59 Prinivil PO 5 mg DAILY [facility] Administration Metoprolol Succinate 50 mg 12/26/17 08:56 12/29/17 22:07 Toprol Xl - PO 50 mg BID [facility] Administration Metronidazole 500 mg 12/29/17 14:00 12/29/17 22:07 Flagyl - PO 500 mg TID [facility] Administration Rosuvastatin Calcium 40 mg 12/25/17 10:00 12/29/17 10:00 Crestor - PO 40 mg DAILY [facility] Administration Sodium Chloride 2 spray 12/29/17 23:04 [place] - NS BID PRN NASAL CONGESTION Tamsulosin HCl 0.4 mg 12/25/17 22:00 12/29/17 22:07 Flomax - PO 0.4 mg HS [facility] Administration
[2017-12-30] MEDS: INSULIN SLIDING SCALE (NOVOLOG) 1 VIAL SQ SCH ×3 (06:54→17:35)
[2017-12-30] MEDS: INSULIN (LEVEMIR) 100 UNITS/ML UNITS SQ SCH (06:55)
[2017-12-30] MEDS: metroNIDAZOLE 500 MG TABLET PO SCH (07:00)
[2017-12-30 08:05] LABS: CHLORIDE 109 mmol/L (98-107); POTASSIUM 4.6 mmol/L (3.5-5.1); SODIUM 142 mmol/L (136-145)
[2017-12-30 08:17] LABS: ANION GAP 9 (8-16); BLOOD UREA NITROGEN 36 mg/dL (7-18); CO2 24 mmol/L (21-32); CREATININE 1.7 mg/dL (0.7-1.3); GLUCOSE,RANDOM 79 mg/dL (74-106)
[2017-12-30] MEDS: metroNIDAZOLE 250 MG TABLET PO SCH ×2 (08:45→13:29)
--- NOTE | 2017-12-30 09:31 | PN ---
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: FUV big toes. vss, tmax=98.0 dp 2/4 b/l, pt .5/4 b/l, +grade 2-3 wounds b/l hallux, +b/l ulcerations of medial big toes. om right big toe, no om left big toe, esr=64, grade 2-3 wounds b/l big toes r/o om Santyl to wounds for now. Patient states he will be going to [facility]. Debrided manually right big toe callous. Follow up in [facility] next Thursday.
[2017-12-30] MEDS ORDERED: ROSUVASTATIN CA 10 MG TABLET (FP) ONE (10:38)
[2017-12-30] MEDS ORDERED: PT OWN MED DRAWER 7, Y5N ONE ×2 (10:39→10:42)
[2017-12-30] MEDS: ROSUVASTATIN CA 20 MG TABLET (FP) PO SCH (10:45)
[2017-12-30] MEDS: CEFEPIME HCL/D5W 1 GM/50 ML BAG IVPB SCH (10:46)
[2017-12-30] MEDS: ASPIRIN 81 MG CHEWABLE TABLETS PO SCH (10:46)
[2017-12-30] MEDS: CLOPIDOGREL BISULFATE 75 MG TABLET (FP) PO SCH (10:46)
[2017-12-30] MEDS: LISINOPRIL 5 MG TABLET (FP) PO SCH (10:46)
[2017-12-30] MEDS: COLLAGENASE CLOSTRIDIUM HIST. 30 GRAMS TUBE TP SCH (10:47)
[2017-12-30] MEDS: amLODIPine BESYLATE 10 MG TABLET (FP) PO SCH (10:47)
--- NOTE | 2017-12-30 13:18 | PN ---
Progress Note, Physician History of Present Illness: Pt seen and examined at bedside. He is awake and alert. His sister is at bedside. - Current Medication List Current Medications: Active Medications Amlodipine Besylate (Norvasc -) 10 mg PO DAILY [facility] Last Admin: 12/30/17 10:47 Dose: 10 mg Aspirin (Asa -) 81 mg PO DAILY [facility] Last Admin: 12/30/17 10:46 Dose: 81 mg Clopidogrel Bisulfate (Plavix -) 75 mg PO DAILY [facility] Last Admin: 12/30/17 10:46 Dose: 75 mg Collagenase (Santyl -) 1 applic TP DAILY [facility] Last Admin: 12/30/17 10:47 Dose: 1 applic Heparin Sodium (Porcine) (Heparin -) 5,000 unit SQ BID [facility] Last Admin: 12/29/17 22:08 Dose: 5,000 unit Cefepime HCl (Maxipime 1 Gm Premix Ivpb) 1 gm in 50 mls @ 200 mls/hr IVPB Q12H [facility]; Protocol Last Admin: 12/30/17 10:46 Dose: 200 mls/hr Insulin Aspart (Novolog Vial Sliding Scale -) 1 vial SQ TIDAC [facility]; Protocol Last Admin: 12/30/17 11:34 Dose: Not Given Insulin Aspart (Novolog Vial Sliding Scale -) 1 vial SQ HS [facility]; Protocol Last Admin: 12/29/17 22:10 Dose: 4 units Insulin Detemir (Levemir Vial) 29 units SQ AM [facility] Last Admin: 12/30/17 06:55 Dose: 29 units Insulin Detemir (Levemir Vial) 25 units SQ HS [facility] Last Admin: 12/29/17 22:08 Dose: 25 units Lisinopril (Prinivil) 5 mg PO DAILY [facility] Last Admin: 12/30/17 10:46 Dose: 5 mg Metoprolol Succinate (Toprol Xl -) 50 mg PO BID [facility] Last Admin: 12/30/17 10:47 Dose: 50 mg Metronidazole (Flagyl -) 500 mg PO TID [facility] Last Admin: 12/30/17 08:45 Dose: 500 mg Rosuvastatin Calcium (Crestor -) 40 mg PO DAILY [facility] Last Admin: 12/30/17 10:45 Dose: 40 mg Sodium Chloride ([place] -) 2 spray NS BID PRN PRN Reason: NASAL CONGESTION Tamsulosin HCl (Flomax -) 0.4 mg PO HS [facility] Last Admin: 12/29/17 22:07 Dose: 0.4 mg - Objective Vital Signs: Vital Signs Temperature 97.7 F 12/30/17 10:00 Pulse Rate 61 12/30/17 10:00 Respiratory Rate 18 12/30/17 10:00 Blood Pressure 138/75 12/30/17 10:00 O2 Sat by Pulse Oximetry (%) 99 12/30/17 09:00 Constitutional: Yes: Calm Eyes: Yes: Conjunctiva Clear HENT: Yes: Atraumatic Neck: Yes: Supple Cardiovascular: Yes: S1, S2 Respiratory: Yes: CTA Bilaterally Gastrointestinal: Yes: Soft Genitourinary: Yes: WNL Edema: No Neurological: Yes: Oriented Psychiatric: Yes: Oriented Labs: CBC, BMP 12/29/17 06:50 12/30/17 06:45 INR, PTT INR 0.96 (0.82-1.09) 12/24/17 22:20 Problem List - Problems (1) CAD (coronary artery disease) Code(s): I25.10 - ATHSCL HEART DISEASE OF [place] CORONARY ARTERY W/O ANG PCTRS (2) Hyperglycemia Code(s): R73.9 - HYPERGLYCEMIA, UNSPECIFIED (3) Renal insufficiency Code(s): N28.9 - DISORDER OF KIDNEY AND URETER, UNSPECIFIED Assessment/Plan Current Medications Generic Name Dose Route Start Last Admin Trade Name Gurmeetq PRN Reason Stop Dose Admin Amlodipine Besylate 10 mg 12/25/17 12:30 12/30/17 10:47 Norvasc - PO 10 mg DAILY [facility] Administration Aspirin 81 mg 12/25/17 10:00 12/30/17 10:46 Asa - PO 81 mg DAILY [facility] Administration Clopidogrel Bisulfate 75 mg 12/25/17 10:00 12/30/17 10:46 Plavix - PO 75 mg DAILY [facility] Administration Collagenase 1 applic 12/25/17 11:15 12/30/17 10:47 Santyl - TP 1 applic DAILY [facility] Administration Heparin Sodium (Porcine) 5,000 unit 12/25/17 22:00 12/29/17 22:08 Heparin - SQ 5,000 unit BID [facility] Administration Cefepime HCl 1 gm in 50 mls @ 200 mls/hr 12/29/17 22:00 12/30/17 10:46 Maxipime 1 Gm Premix Ivpb IVPB 200 mls/hr Q12H [facility] Administration Protocol Insulin Aspart 1 vial 12/25/17 07:00 12/30/17 11:34 Novolog Vial Sliding Scale - SQ Not Given TIDAC [facility] Protocol Insulin Aspart 1 vial 12/26/17 16:50 12/29/17 22:10 Novolog Vial Sliding Scale - SQ 4 units HS [facility] Administration Protocol Insulin Detemir 29 units 12/28/17 07:00 12/30/17 06:55 Levemir Vial SQ 29 units AM [facility] Administration Insulin Detemir 25 units 12/28/17 22:00 12/29/17 22:08 Levemir Vial SQ 25 units HS [facility] Administration Lisinopril 5 mg 12/25/17 10:00 12/30/17 10:46 Prinivil PO 5 mg DAILY [facility] Administration Metoprolol Succinate 50 mg 12/26/17 08:56 12/30/17 10:47 Toprol Xl - PO 50 mg BID [facility] Administration Metronidazole 500 mg 12/30/17 08:00 12/30/17 08:45 Flagyl - PO 500 mg TID [facility] Administration Rosuvastatin Calcium 40 mg 12/25/17 10:00 12/30/17 10:45 Crestor - PO 40 mg DAILY [facility] Administration Sodium Chloride 2 spray 12/29/17 23:04 [place] Nas[place] - NS BID PRN NASAL CONGESTION Tamsulosin HCl 0.4 mg 12/25/17 22:00 12/29/17 22:07 Flomax - PO 0.4 mg HS [facility] Administration Impression 1. CKD 2. DM 3. HTN 4. DFU 5. HLD 6. BPH 7. osteo 8. proteinuria Plan - renal function has been stable - will do renal workup in office - plan discussed with pt and his sister who is his HCP - low potassium diet - cont lisinopril Dr Porter
--- NOTE | 2017-12-30 14:10 | PN ---
Progress Note, Physician Chief Complaint: Right big toe osteomyelitis History of Present Illness: NAD, Seen by Podiatry, ID and endocrinology on IV abx MRI shows early osteomyelitis ESR 64 Spoke to at bedside awaiting approval for snf and PICC line - Current Medication List Current Medications: Active Medications Amlodipine Besylate (Norvasc -) 10 mg PO DAILY [facility] Last Admin: 12/30/17 10:47 Dose: 10 mg Aspirin (Asa -) 81 mg PO DAILY [facility] Last Admin: 12/30/17 10:46 Dose: 81 mg Clopidogrel Bisulfate (Plavix -) 75 mg PO DAILY [facility] Last Admin: 12/30/17 10:46 Dose: 75 mg Collagenase (Santyl -) 1 applic TP DAILY [facility] Last Admin: 12/30/17 10:47 Dose: 1 applic Heparin Sodium (Porcine) (Heparin -) 5,000 unit SQ BID [facility] Last Admin: 12/29/17 22:08 Dose: 5,000 unit Cefepime HCl (Maxipime 1 Gm Premix Ivpb) 1 gm in 50 mls @ 200 mls/hr IVPB Q12H [facility]; Protocol Last Admin: 12/30/17 10:46 Dose: 200 mls/hr Insulin Aspart (Novolog Vial Sliding Scale -) 1 vial SQ TIDAC [facility]; Protocol Last Admin: 12/30/17 11:34 Dose: Not Given Insulin Aspart (Novolog Vial Sliding Scale -) 1 vial SQ HS [facility]; Protocol Last Admin: 12/29/17 22:10 Dose: 4 units Insulin Detemir (Levemir Vial) 29 units SQ AM [facility] Last Admin: 12/30/17 06:55 Dose: 29 units Insulin Detemir (Levemir Vial) 25 units SQ HS [facility] Last Admin: 12/29/17 22:08 Dose: 25 units Lisinopril (Prinivil) 5 mg PO DAILY [facility] Last Admin: 12/30/17 10:46 Dose: 5 mg Metoprolol Succinate (Toprol Xl -) 50 mg PO BID [facility] Last Admin: 12/30/17 10:47 Dose: 50 mg Metronidazole (Flagyl -) 500 mg PO TID [facility] Last Admin: 12/30/17 13:29 Dose: 500 mg Rosuvastatin Calcium (Crestor -) 40 mg PO DAILY [facility] Last Admin: 12/30/17 10:45 Dose: 40 mg Sodium Chloride ([place] -) 2 spray NS BID PRN PRN Reason: NASAL CONGESTION Tamsulosin HCl (Flomax -) 0.4 mg PO HS [facility] Last Admin: 12/29/17 22:07 Dose: 0.4 mg - Objective Vital Signs: Vital Signs Temperature 97.7 F 12/30/17 10:00 Pulse Rate 61 12/30/17 10:00 Respiratory Rate 18 12/30/17 10:00 Blood Pressure 138/75 12/30/17 10:00 O2 Sat by Pulse Oximetry (%) 99 12/30/17 09:00 Constitutional: Yes: Well Nourished, No Distress, Calm Cardiovascular: Yes: Regular Rate and Rhythm Respiratory: Yes: Regular Gastrointestinal: Yes: Normal Bowel Sounds, Soft Wound/Incision: Yes: Dressing Dry and Intact Neurological: Yes: Alert, Oriented Psychiatric: Yes: Alert, Oriented Labs: CBC, BMP 12/29/17 06:50 12/30/17 06:45 INR, PTT INR 0.96 (0.82-1.09) 12/24/17 22:20 Problem List - Problems (1) CAD (coronary artery disease) Assessment/Plan: aspirin plavix statin- high intensity, LDL at 246 mg/dl BB [facility] on board Code(s): I25.10 - ATHSCL HEART DISEASE OF [place] CORONARY ARTERY W/O ANG PCTRS (2) Diabetic foot infection Assessment/Plan: -ID on board -Also seen by Podiatry -On IV abx -RLE MRI early osteomyelitis -Needs IV abx for 6 weeks: Vancomycin, Cefepime and Flagyl -Plan PICC and d/c to SNF, Pt agrees to [facility] -Needs HBO after discharge from rehab Code(s): E11.628 - TYPE 2 DIABETES MELLITUS WITH OTHER SKIN COMPLICATIONS; L08.9 - LOCAL INFECTION OF THE SKIN AND SUBCUTANEOUS TISSUE, UNSP (3) Diabetes mellitus, insulin dependent (IDDM), uncontrolled Assessment/Plan: A1C 11.8 -Endocrinology consult -BGM ACHS -Diabetic diet -avoid mixing IV abx with D5W -Insulin: Levemir and Novolog -RD consult Code(s): E10.65 - TYPE 1 DIABETES MELLITUS WITH HYPERGLYCEMIA (4) Renal insufficiency Assessment/Plan: -nephrology on board -Close to baseline -monitor trend Code(s): N28.9 - DISORDER OF KIDNEY AND URETER, UNSPECIFIED Assessment/Plan see problem list DVT prophylaxis
--- NOTE | 2017-12-30 14:19 | PN ---
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: no complaints multiple callouses on his feet nontender Vital Signs Period Temp Pulse Resp BP Sys/Mcconnell Pulse Ox Last 24 Hr 97.7 F-98.8 F 61-69 18-20 138-155/70-76 99-99 cor-rrr lungs clear MRI with early osteo CBC, BMP 12/29/17 06:50 12/30/17 06:45 a/p Dr Voss's note reviewed plan for group home iv cefepime and vancomycin-for osteomyelitis- 6 weeks renal function improving start vancomycing 500 mg daily in am, trough 16 today should follow vancomycin trough in snf please call back if needed
[2017-12-30 14:54] VITALS: PULSE 64
[2017-12-30 17:14] VITALS: BP 151/69; TEMP 97.9
[2017-12-31] MEDS ORDERED: VANCOMYCIN 500 MG in DEXTROSE 5%-WATER - 100 ML IVPB SCH (10:00)
== END 2017-12-30 18:04 | DRG 344 ==
LOC: JER 21:43 → JERBED 12-25 01:05 → UNDOADMOB 12-25 01:05 → INTOOBSV 12-25 01:05 → JERBED 12-25 01:19 → UNDOADMIN 12-25 01:19 → JERBED 12-25 02:13 → J8W 12-25 02:13 → JERBED 12-25 03:11 → J8W 12-25 03:11 → OBSVTOIN 12-27 08:05
PROVIDERS: ADMIT Internal Medicine; ATTEND Family Medicine
PROC: 05H533Z Insertion of Infusion Device into Right Subclavian Vein, Percutaneous Approach (ICD-10-PCS; principal; 2017-12-30)
PROC: B546ZZA Ultrasonography of Right Subclavian Vein, Guidance (ICD-10-PCS; 2017-12-30)
DX: E11.621 Type 2 diabetes mellitus with foot ulcer (principal); N17.9 Acute kidney failure, unspecified; E11.22 Type 2 diabetes mellitus with diabetic chronic kidney disease; E11.65 Type 2 diabetes mellitus with hyperglycemia; M86.8X7 Other osteomyelitis, ankle and foot; I12.9 Hypertensive chronic kidney disease with stage 1 through stage 4 chronic kidney disease, or unspecified chronic kidney disease; E11.69 Type 2 diabetes mellitus with other specified complication; E11.40 Type 2 diabetes mellitus with diabetic neuropathy, unspecified; I13.0 Hypertensive heart and chronic kidney disease with heart failure and stage 1 through stage 4 chronic kidney disease, or unspecified chronic kidney disease; I50.9 Heart failure, unspecified; N40.0 Benign prostatic hyperplasia without lower urinary tract symptoms; I25.10 Atherosclerotic heart disease of native coronary artery without angina pectoris; N18.9 Chronic kidney disease, unspecified; Z95.1 Presence of aortocoronary bypass graft; E78.5 Hyperlipidemia, unspecified; Z79.4 Long term (current) use of insulin; I25.2 Old myocardial infarction
CPT/HCPCS: 36415; 36558; 71046-TC-FY; 73718-LT; 73718-TC; 76775-TC; 76856-TC; 80048; 80053; 80061; 81003; 81015; 82009; 82550; 82570; 82803; 82962; 83036; 83605; 83721; 83735; 84100; 84156; 84484; 85025; 85610; 85651; 86140; 87040; 87389; 93005; 93010; 97116-GP; 97161-GP; 99283-25; C1751; G0378; G0480; J1644; J7030

== ENCOUNTER → 2018-02-10 | Day surgery (SDC) | payer OTHER | END | disposition home or self-care (01) | LOC: JRADIR 11:46 | PROVIDERS: ATTEND Student in an Organized Health Care Education/Training Program | PROC: 0JPT0XZ Removal of Tunneled Vascular Access Device from Trunk Subcutaneous Tissue and Fascia, Open Approach (ICD-10-PCS; principal; 2018-02-10) | DX: Z45.2 Encounter for adjustment and management of vascular access device (principal) | CPT/HCPCS: 36589 ==

== ENCOUNTER 2018-03-12 19:55 | Emergency (ER) | payer OTHER ==
--- NOTE | 2018-03-12 20:03 | PDOC ---
Rapid Medical Evaluation Chief Complaint: Blood Pressure Problem Time Seen by Provider: 03/12/18 20:00 Medical Evaluation: Allergies Allergy/AdvReac Type Severity Reaction Status Date / Time No Known Allergies Allergy Verified 03/12/18 20:01 03/12/18 20:01 c/o high blood pressure reading. denies headache, dizziness, chest pain. PE: patient alert ox3 A; hypertension P: patient to the ER for further management of care. Discharge Disposition - Diagnosis Hypertension Qualifiers: Hypertension type: essential hypertension Qualified Code(s): I10 - Essential ( primary) hypertension - Referrals - Patient Instructions - Post Discharge Activity
[2018-03-12 20:04] VITALS: TEMP 98.7; BMI 24.7
--- NOTE | 2018-03-12 21:00 | PDOC ---
Attending Attestation - HPI HPI: 03/12/18 21:33 The patient is a 68 year old male with a significant past medical history of HTN , HLD, DM, and CABG who presents to the ER for evaluation of high blood pressure earlier today. Patient states he was receiving hyperbaric oxygen treatment at 4PM for a right big toe infection and had taken his blood pressure medications today. Patient was going to be sent home after his hyperbaric treatment when they noticed his blood pressure was elevated and sent him to the ER for evaluation. Patient is currently asymptomatic here in the ER. The patient denies palpitations, chest pain, shortness of breath, visual changes , leg swelling, headache, and dizziness. Denies fever, chills, nausea, vomit, diarrhea, and constipation. Denies dysuria, frequency, urgency, and hematuria. Allergies: NKA Past surgical history: CABG Social history: No reported alcohol, drug, or cigarette use. - Physicial Exam PE: 03/12/18 21:33 ADULT EXAM GENERAL: Awake, alert, and fully oriented, in no acute distress HEAD: No signs of trauma EYES: PERRLA, EOMI, sclera anicteric, conjunctiva clear ENT: Auricles normal inspection, hearing grossly normal, nares patent, oropharynx clear without exudates. Moist mucosa NECK: Normal ROM, supple, no lymphadenopathy, JVD, or masses LUNGS: Breath sounds equal, clear to auscultation bilaterally. No wheezes, and no crackles HEART: (+) Slight 2/6 systolic murmur. Regular rate and rhythm, normal S1 and S2 , no rubs or gallops ABDOMEN: Soft, nontender, normoactive bowel sounds. No guarding, no rebound. No masses EXTREMITIES: Normal range of motion, no edema. No clubbing or cyanosis. No cords, erythema, or tenderness NEUROLOGICAL: Cranial nerves II through XII grossly intact. Speaking in full sentences. SKIN: Warm, Dry, normal turgor, no rashes or lesions noted. <Nica Liriano - Last Filed: 03/12/18 21:33> - Resident Resident Name: Franca Aguilar - ED Attending Attestation I have performed the following: I have examined & evaluated the patient, The case was reviewed & discussed with the resident, I agree w/resident's findings & plan - Medical Decision Making 03/12/18 21:22 Pt will have cardiac enzymes sent. EKG is NSR; pt is asymptomatic. He is complaint with all his BP meds, and he took is 7PM meds. 03/12/18 21:23 BP 225 sytolic @ bedisde, came down to 179 systolic with 2SLNTG, placed by me; another SLNTG placed under tongue by myself. Nurse will be applying 1 inch nitropaste to the chest wall 03/12/18 22:19 Pt's CBC is normal 03/12/18 22:49 Pt is completely aymptomatic. BP is 154/90. He feels fine and I will discharge him home with PMD follow up. Pt may return if he feels worse. 03/12/18 22:50 Labs are normal, BNP elevated at 1400s. He has been in the 4000s in the past. BUN is slightly elevated, but Cr is where it normally is. <Pauline Goff - Last Filed: 03/12/18 23:01> Heart Score/ECG Review - Electrocardiogram EKG: Normal - Age Age: >/= 65 - Risk Factors Risk Factors Heart Score: Yes Hx Hypercholesterolemia, Yes Hx Hypertension, Yes Hx Diabetes Based on the list above the patient has:: >/=3 risk factors or Hx atherosclerotic disease - Troponin Troponin: </= normal limit - ECG Intrepretation Rhythm: Regular Rhythm - [place]: Normal - P and [place] Prominent R with upright T in V1 (true posterior IA): No Delta Wave(s) Present: No WPW: No - QRS Q Wave Present: No - ST and T Early Repolarization: No Non Specific ST-T Wave changes: No Flattened T Waves: No Prolonged Q-T Interval: No - ECG Impressions Normal ECG: Yes Non-specific ST Elevation: No Ischemic Changes: Yes (old findings in leads 2 and avF) Torsades mulu Pointes: No WPW: No <Pauline Goff - Last Filed: 03/12/18 23:01>
[2018-03-12] MEDS ORDERED: NITROGLYCERIN SUBLINGUAL 1/150 0.4 MG TAB SL ONE ×2 (21:07→21:19)
[2018-03-12] MEDS ORDERED: NITROGLYCERIN 2% OINTMENT - 1GM PACKET TD ONE ×2 (21:15→21:20)
--- NOTE | 2018-03-12 21:26 | PDOC ---
History of Present Illness - General Chief Complaint: Blood Pressure Problem Stated Complaint: BLOOD PRESSURE PROBLEM Time Seen by Provider: 03/12/18 20:00 History Source: Patient Exam Limitations: No Limitations - History of Present Illness Initial Comments: 03/12/18 21:20 68 year old male with PMH HTN, HLD, DM, CABG presenting to ED for HTN. He recieved hyperbaric therapy for his right big toe infection today at 1600 and states when they took his blood pressure afterwards it was high and they sent him to the ED. He states he took all of his medications today. He denies chest pain, shortness of breath, visual changes, lower extremity swelling, headache or any other complaints. Past History - Past Medical History Allergies/Adverse Reactions: Allergies Allergy/AdvReac Type Severity Reaction Status Date / Time No Known Allergies Allergy Verified 03/12/18 20:01 Home Medications: Ambulatory Orders Aspirin [ASA -] 81 mg PO DAILY 07/19/16 Clopidogrel Bisulfate [Plavix -] 75 mg PO DAILY 07/19/16 Rosuvastatin [Crestor -] 40 mg PO DAILY 07/19/16 Tamsulosin HCl [Flomax] 0.4 mg PO HS #7 cap.er.24h 06/07/17 Amlodipine Besylate [Norvasc -] 10 mg PO DAILY tablet 12/29/17 Insulin Sliding Scale [Novolog Vial Sliding Scale -] 1 vial SQ TIDAC units Insulin (Levemir) [Levemir Vial] 50 units SQ AM 03/12/18 Lisinopril [Prinivil] 5 mg PO BID 03/12/18 Cardiac Disorders: Yes COPD: No Diabetes: Yes HTN: Yes Hypercholesterolemia: Yes - Surgical History Cardiac Surgery: Yes (STENTS, BYPASS) - Immunization History Immunization Up to Date: Yes - Suicide/Smoking/Psychosocial Hx Smoking History: Never smoked Have you smoked in the past 12 months: No If you are a former smoker, when did you quit?: 35 YRS Hx Alcohol Use: No Drug/Substance Use Hx: No Substance Use Type: None Review of Systems - Review of Systems Able to Perform ROS?: Yes Comments:: 03/12/18 21:22 General: denies fever, chills, night sweats, generalized weakness. HEENT: denies sore throat, rhinorrhea, ear pain, visual changes. Heart: denies chest pain, palpitations, syncope, lower extremity swelling, diaphoresis. Respiratory: denies shortness of breath, cough, sputum production, hematemesis. Abdomen: denies abdominal pain, nausea, vomiting, diarrhea, constipation, blood in stool. : denies dysuria, increased urinary frequency, hematuria, urinary incontinence , flank pain. Back: denies back pain. Musculoskeletal: denies joint pain, muscle pain, joint swelling. Neurological: denies headache, dizziness, numbness, tingling, weakness. Skin: admits to right toe wound. *Physical Exam - Vital Signs Last Vital Signs Temp Pulse Resp BP Pulse Ox 98.7 F 80 18 197/112 98 03/12/18 20:01 03/12/18 20:01 03/12/18 20:01 03/12/18 20:01 03/12/18 20:01 - Physical Exam Comments: 03/12/18 21:22 Constitutional: Well-nourished, Well-developed, appearing stated age. HEENT: head is normocephalic, atraumatic. EOMI. PERRLA. Bilateral ear canals normal. Bilateral TM normal. Neck: supple. Full ROM. Heart: regular rhythm. blowing systolic murmur. Chest: midline linear vertical healed surgical scar. no anterior chest wall tenderness. Lungs: clear to auscultation bilaterally. no crackles, rhonchi or wheezing. no stridor. Abdomen: soft, nontender. normal bowel sounds. no rebound, guarding, masses. Extremities: Peripheral pulses intact and equal. No lower extremity edema. dressing applied to right big toe, no surrounding erythema, no apparent discharge. pt refused removal of dressing. Neurological: CN 2-12 grossly intact. Moves all four extremities. Psych: awake, alert, oriented x3. Follows commands. Answers questions appropriately. Heart Score/ECG Review - ECG Impressions Comment:: 03/12/18 21:28 EKG performed at 21:16 - Rate 75, regular rhythm, normal axis, no acute ST changes. ED Treatment Course - LABORATORY CBC & Chemistry Diagram: 03/12/18 21:20 03/12/18 21:20 - RADIOLOGY Radiology Studies Ordered: Category Date Time Status CHEST X-RAY PORTABLE* [RAD] Stat Radiology 03/12/18 20:51 Ordered - Medications Given in the ED: ED Medications Discontinued Medications Generic Name Dose Route Start Last Admin Trade Name Chapo PRN Reason Stop Dose Admin Nitroglycerin 0.8 mg 03/12/18 21:07 03/12/18 21:10 Nitrostat - SL 03/12/18 21:08 0.8 mg ONCE ONE Administration Medical Decision Making - Medical Decision Making 03/12/18 21:23 68 year old male with PMH HTN, HLD, DM, CABG presenting to ED from [facility] for HTN. Denies complaints. Initial Vital Signs Temp Pulse Resp BP Pulse Ox 98.7 F 80 18 197/112 98 03/12/18 20:01 03/12/18 20:01 03/12/18 20:01 03/12/18 20:01 03/12/18 20:01 Afebrile. No tachycardia. No hypoxia. Repeat BP: 225/77 right arm. 2 sublingual nitros were given. Repeat BP after nitro: 176/102 left arm. 176/89 right arm. EKG performed at 21:16 - Rate 75, regular rhythm, normal axis, no acute ST changes. Nitro paste applied. Pending labs, UA, CXR. 03/12/18 22:43 Leukocytosis - 11.2 BUN 57, Cr. 1.9. similar to prior lab work. BNP - 1478.03 TSH normal Troponin negative Repeat BP: 154/80 right arm. 03/12/18 22:48 UA - 1+ blood, 1+ protein, 1+ glucose *DC/Admit/Observation/Transfer Diagnosis at time of Disposition: Hypertension Qualifiers: Hypertension type: essential hypertension Qualified Code(s): I10 - Essential ( primary) hypertension - Discharge Dispostion Disposition: HOME Condition at time of disposition: Improved Decision to Admit order: No - Referrals - Patient Instructions Printed Discharge Instructions: DI for High Blood Pressure, How to Monitor Your Blood Pressure at Home Additional Instructions: You were seen today for high blood pressure. Your lab work revealed results similar to prior lab work you had performed. Your chest x-ray was similar to prior x-rays you received before. Follow up with your primary care doctor within 5 days. Call their office on Thursday and make an appointment. It is important that you see your primary care doctor. Return to the Emergency Department for chest pain, shortness of breath, passing out, blood in urine, weakness, numbness, tingling, facial drooping, swelling of your legs, or any other new, worsening or concerning symptoms. Hoy fuiste visto por presin arterial nnamdi. Ornelas trabajo de laboratorio revel resultados similares al trabajo de laboratorio anterior que haba realizado. Ornelas radiografa de trax fue similar a las radiografas previas que recibi anteriormente. Franco un seguimiento con ornelas mdico de atencin primaria dentro de los 5 elizabeth. Llame a ornelas oficina el lunes y franco viviane ros. Es importante que kailee a ornelas mdico de atencin primaria. Regrese al servicio de urgencias por dolor en el pecho, dificultad para respirar , desmayo, fermin en la orina, debilidad, entumecimiento, hormigueo, cada de la pao, hinchazn de las piernas o cualquier otro nuevo empeoramiento o sntomas relacionados. Print Language: [place] - Post Discharge Activity Forms/Work/School Notes: Back to Work
[2018-03-12 22:11] LABS: ALBUMIN 3.6 g/dl (3.4-5.0); ANION GAP 11 MMOL/L (8-16); BILIRUBIN,TOTAL 0.3 mg/dL (0.2-1.0); BLOOD UREA NITROGEN 57 mg/dL (7-18); CALCIUM 8.8 mg/dL (8.5-10.1); CHLORIDE 103 mmol/L (98-107); CO2 22 mmol/L (21-32); CREATININE 1.9 mg/dL (0.7-1.3); GLUCOSE,RANDOM 206 mg/dL (74-106); SGOT/AST 17 U/L (15-37); SGPT/ALT 32 U/L (12-78); SODIUM 136 mmol/L (136-145); TOT PROT 7.6 g/dl (6.4-8.2)
[2018-03-12 22:13] LABS: ALK PHOS 65 U/L (45-117)
[2018-03-12 22:14] LABS: BASO % 0.5 % (0-2.0); HEMATOCRIT 35.4 % (35.4-49); LYMPH % 10.4 % (8-40); MCH 29.4 pg (25.7-33.7); MCHC 33.8 g/dl (32.0-35.9); MEAN PLT VOLUME 10.5 fl (7.5-11.1); NEUT % 77.1 % (42.8-82.8); PLATELET COUNT 159 K/MM3 (134-434); RBC 4.07 M/mm3 (4.00-5.60); RDW 15.2 % (11.9-15.9); WHITE BLOOD COUNT 11.3 K/mm3 (4.0-10.0)
[2018-03-12 22:24] LABS: N-TERMINAL BNP 1478.03 pg/ml (5-125)
[2018-03-12 22:41] LABS: URINE APPEARANCE CLEAR; URINE BILIRUBIN NEGATIVE (<2.0 mg/dL); URINE COLOR STRAW; URINE GLUCOSE (UA) 1+ (NEGATIVE); URINE KETONE NEGATIVE (NEGATIVE); URINE LEUK ESTERASE NEGATIVE (NEGATIVE); URINE NITRITE NEGATIVE (NEGATIVE); URINE UROBILINOGEN NEGATIVE mg/dL (0.2-1.0)
[2018-03-12 22:45] LABS: URINE PROTEIN 2+ (NEGATIVE)
[2018-03-12 22:46] LABS: EPI CELLS RARE /HPF (FEW)
[2018-03-12 22:49] VITALS: BP 154/80; PULSE 75
--- NOTE | 2018-03-15 11:12 | EKG ---
Test Reason : Blood Pressure : / mmHG Vent. Rate : 075 BPM Atrial Rate : 075 BPM P-R Int : 146 ms QRS Dur : 086 ms QT Int : 402 ms P-R-T Axes : 030 -05 068 degrees QTc Int : 448 ms NORMAL SINUS RHYTHM MINIMAL VOLTAGE CRITERIA FOR LVH, MAY BE NORMAL VARIANT INFERIOR INFARCT (CITED ON OR BEFORE 19-JUL-2014) ABNORMAL ECG WHEN COMPARED WITH ECG OF 24-DEC-2017 22:15, NO SIGNIFICANT CHANGE WAS FOUND Confirmed by JENNIFER KENDALL MD ([id number]) on 03/15/2018 11:11:53 AM Referred By: Confirmed By:JENNIFER KENDALL MD
== END 2018-03-12 23:05 | disposition home or self-care (01) ==
LOC: JER 19:55
DX: I10 Essential (primary) hypertension (principal); I25.10 Atherosclerotic heart disease of native coronary artery without angina pectoris; Z95.1 Presence of aortocoronary bypass graft; Z95.5 Presence of coronary angioplasty implant and graft; E11.9 Type 2 diabetes mellitus without complications; Z79.4 Long term (current) use of insulin; E78.00 Pure hypercholesterolemia, unspecified
CPT/HCPCS: 36415; 71045-TC-FY; 80053; 81003; 81015; 82550; 82962; 83880; 84443; 84484; 85025; 87086; 93005; 93010; 99283-25

== ENCOUNTER 2018-03-29 18:07 | Emergency (ER) | payer OTHER ==
--- NOTE | 2018-03-29 18:20 | PDOC ---
Rapid Medical Evaluation Time Seen by Provider: 03/29/18 18:20 Medical Evaluation: Allergies Allergy/AdvReac Type Severity Reaction Status Date / Time No Known Allergies Allergy Verified 03/12/18 20:01 03/29/18 18:23 The patient presents with a chief complaint of: urinary pain/retention I have performed a brief in-person evaluation of this patient. Pertinent physical exam findings: vss, stable I have ordered the following: labs, ua, The patient will proceed to the ED for further evaluation.
[2018-03-29 18:25] VITALS: BP 194/95; PULSE 122; TEMP 99.1; BMI 25.3
--- NOTE | 2018-03-29 19:57 | PDOC ---
Attending Attestation - HPI HPI: 03/29/18 20:05 The patient is a 68 year old male, with a significant past medical history of diabetes, hypertension, hyperlipidemia, s/p CABG, who presents to the emergency department with suprapubic pain and urinary retention for about 24 hours. He reports the pain has improved slightly since the initial onset, however, reports the pain is localized and constant. He states he has produced very minimal urine and feels he is in retention. He states he has a prescription for ciprofloxacin but denies it being for a UTI. The patient denies chest pain, shortness of breath, headache and dizziness. The patient denies fever, chills, nausea, vomit, diarrhea and constipation. The patient denies dysuria, frequency, urgency, flank pain, and hematuria. Allergies: NKDA Past surgical history: CABG Social history: denies tobacco use PCP - Dr. Dumas - Physicial Exam PE: 03/29/18 20:49 GENERAL: Awake, alert, and fully oriented, in no acute distress HEAD: No signs of trauma EYES: PERRLA, EOMI, sclera anicteric, conjunctiva clear ENT: Auricles normal inspection, hearing grossly normal, nares patent, oropharynx clear without exudates. Moist mucosa NECK: Normal ROM, supple, no lymphadenopathy, JVD, or masses LUNGS: Breath sounds equal, clear to auscultation bilaterally. No wheezes, and no crackles HEART: Regular rate and rhythm, normal S1 and S2, no murmurs, rubs or gallops ABDOMEN: Soft, nontender, normoactive bowel sounds. No guarding, no rebound. No masses EXTREMITIES: Normal range of motion, no edema. No clubbing or cyanosis. No cords, erythema, or tenderness MUSCULOSKELETAL: No CVA tenderness NEUROLOGICAL: Cranial nerves II through XII grossly intact. Normal speech, normal gait SKIN: Warm, Dry, normal turgor, no rashes or lesions noted. - Medical Decision Making 03/29/18 20:05 Documentation prepared by Jessica Ramachandran, acting as medical malpractice paralegal for Ewelina Hou MD EXAM#: TYPE/EXAM: RESULT: [id number] RAD/CHEST X-RAY PORTABLE* Rule out sepsis Portable chest x-ray, AP semiupright. Since 03/12/2018, the cardiac silhouette remains slightly to moderately enlarged with atherosclerotic unfolding of the aortic arch. Patient status post median sternotomy. There are mild bilateral increased interstitial markings. Persistent mild blunting of the right lateral costophrenic angle again seen. Mediastinum and visualized osseous structures appear intact Impression: No significant interval change. Persistent mild blunting of the right lateral costophrenic angle again noted suggestive of pleural thickening versus minimal pleural effusion. Reported By: Gary Reyes MD [id number]/29/[id number] <Jessica Ramachandran - Last Filed: 03/29/18 21:24> - Resident Resident Name: Brayden Billingsley - ED Attending Attestation I have performed the following: I have examined & evaluated the patient, The case was reviewed & discussed with the resident, I agree w/resident's findings & plan, Exceptions are as noted - Medical Decision Making Pt with symptoms of urinary retention, with history of prior CKD. Barney placed, without significant passage of urine. Await labs to check creatinine, UA to check for UTI. <Ewelina Hou - Last Filed: 03/29/18 22:23>
[2018-03-29] MEDS ORDERED: SODIUM CHLORIDE 1,000 ML IV STA (20:05)
--- NOTE | 2018-03-29 20:28 | PDOC ---
History of Present Illness - General Chief Complaint: Urinary Problem Stated Complaint: URINARY PROBLEM Time Seen by Provider: 03/29/18 18:20 History Source: Patient Exam Limitations: No Limitations - History of Present Illness Initial Comments: 03/29/18 20:23 Patient is a 68M with history of DM, HTN, HLD, CAD s/p CABG, diabetic foot wound here today complaining of 24 hours of urinary retention. Patient states that he was taking ciprofloxacin for an infection, but he continued to have suprapubic pain until he was unable to urinate normally. He states that he has been able to pass small amounts of urine. Denies fevers, endorses chills. Denies chest pain, shortness of breath, leg swelling. Past History - Past Medical History Allergies/Adverse Reactions: Allergies Allergy/AdvReac Type Severity Reaction Status Date / Time No Known Allergies Allergy Verified 03/29/18 18:20 Home Medications: Ambulatory Orders Aspirin [ASA -] 81 mg PO DAILY 07/19/16 Clopidogrel Bisulfate [Plavix -] 75 mg PO DAILY 07/19/16 Rosuvastatin [Crestor -] 40 mg PO DAILY 07/19/16 Tamsulosin HCl [Flomax] 0.4 mg PO HS #7 cap.er.24h 06/07/17 Amlodipine Besylate [Norvasc -] 10 mg PO DAILY tablet 12/29/17 Insulin Sliding Scale [Novolog Vial Sliding Scale -] 1 vial SQ TIDAC units Insulin (Levemir) [Levemir Vial] 50 units SQ AM 03/12/18 Lisinopril [Prinivil] 5 mg PO BID 03/12/18 Cardiac Disorders: Yes COPD: No Diabetes: Yes HTN: Yes Hypercholesterolemia: Yes - Surgical History Cardiac Surgery: Yes (STENTS, BYPASS) - Immunization History Immunization Up to Date: Yes - Suicide/Smoking/Psychosocial Hx Smoking History: Never smoked Have you smoked in the past 12 months: No If you are a former smoker, when did you quit?: 35 YRS Hx Alcohol Use: No Drug/Substance Use Hx: No Substance Use Type: None Review of Systems - Review of Systems Comments:: 03/29/18 20:26 GENERAL/CONSTITUTIONAL: No fever or chills. No weakness. HEAD, EYES, EARS, NOSE AND THROAT: No change in vision. No sore throat. CARDIOVASCULAR: No chest pain or shortness of breath RESPIRATORY: No cough, wheezing, or hemoptysis. GASTROINTESTINAL: No nausea, vomiting, diarrhea or constipation. GENITOURINARY: +dysuria, +frequency, +retention MUSCULOSKELETAL: No joint or muscle swelling or pain. No neck or back pain. SKIN: No rash NEUROLOGIC: No headache, vertigo, loss of consciousness, or change in strength/ sensation. ENDOCRINE: No increased thirst. No abnormal weight change HEMATOLOGIC/LYMPHATIC: No anemia, easy bleeding, or history of blood clots. ALLERGIC/IMMUNOLOGIC: No hives or skin allergy. *Physical Exam - Vital Signs Last Vital Signs Temp Pulse Resp BP Pulse Ox 99.1 F 122 H 18 194/95 97 03/29/18 18:21 03/29/18 18:21 03/29/18 18:21 03/29/18 18:21 03/29/18 18:21 - Physical Exam Comments: 03/29/18 20:27 GENERAL: Awake, alert, and fully oriented, in no acute distress HEAD: No signs of trauma, normocephalic, atraumatic EYES: PERRLA, EOMI, sclera anicteric, conjunctiva clear ENT: Auricles normal inspection, hearing grossly normal, nares patent, oropharynx clear without exudates. Moist mucosa NECK: Normal ROM, supple, no lymphadenopathy, JVD, or masses LUNGS: No distress, speaks full sentences, clear to auscultation bilaterally HEART: Tachycardic, normal S1 and S2, no murmurs, rubs or gallops, peripheral pulses normal and equal bilaterally. ABDOMEN: Soft, +minimal suprapubic tenderness, no cva tenderness, normoactive bowel sounds. No guarding, no rebound. No masses EXTREMITIES: Normal inspection, Normal range of motion, no edema. No clubbing or cyanosis. NEUROLOGICAL: Cranial nerves II through XII grossly intact. Normal speech, normal gait, no focal sensorimotor deficits SKIN: Warm, Dry, normal turgor, no rashes or lesions noted. ED Treatment Course - LABORATORY CBC & Chemistry Diagram: 03/29/18 20:45 03/29/18 21:54 - RADIOLOGY Radiology Studies Ordered: Category Date Time Status CHEST X-RAY PORTABLE* [RAD] Stat Radiology 03/29/18 20:06 Ordered Medical Decision Making - Medical Decision Making 03/29/18 20:27 Patient is a 68M with history of DM, HTN, HLD, CAD s/p CABG, diabetic foot wound here today complaining of urinary retention, dysuria, suprapubic pain. Vital signs notable for tachycardia. Rectal temp 98.3. Broad workup initiated, will place [place]. DDx includes, but is not limited to: UTI, retention, renal failure. 03/29/18 23:00 UA+ for infection. CBC normal. CMP shows elevated BUN/Cr, at baseline. Lactate negative. 500cc in [place], patient reports feeling better with [place]. Will d/c with leg bag and urology follow up. Cultures reviewed, will give bactrim for 10 days. HR 75, BP 141/73 at discharge, patient improved. *DC/Admit/Observation/Transfer Diagnosis at time of Disposition: UTI (urinary tract infection), Urinary retention - Discharge Dispostion Disposition: HOME Condition at time of disposition: Good Decision to Admit order: No - Referrals Referrals: Ishan Dumas MD [Primary Care Provider] - Brayden Stephens MD [Staff Physician] - - Patient Instructions Printed Discharge Instructions: DI for Urinary Retention in Men, DI for Urinary Tract Infection (UTI), How to Care for Your [place] Catheter -- Male Additional Instructions: Please call Dr Stephens tomorrow to follow up with your [place]. Please return if you have any new, worsening or concerning symptoms. Especially fever, chills, and increased pain. - Post Discharge Activity
[2018-03-29 21:09] LABS: BASO % 0.8 % (0-2.0); EOS % 1.8 % (0-4.5); HEMATOCRIT 34.6 % (35.4-49); HEMOGLOBIN 11.6 GM/dL (11.7-16.9); MCH 29.3 pg (25.7-33.7); MCHC 33.6 g/dl (32.0-35.9); MEAN CELL VOLUME 87.3 fl (80-96); MEAN PLT VOLUME 10.1 fl (7.5-11.1); NEUT % 76.4 % (42.8-82.8); PLATELET COUNT 203 K/MM3 (134-434); RBC 3.96 M/mm3 (4.00-5.60); WHITE BLOOD COUNT 9.9 K/mm3 (4.0-10.0)
[2018-03-29 21:32] LABS: URINE APPEARANCE CLOUDY; URINE BILIRUBIN NEGATIVE (<2.0 mg/dL); URINE COLOR YELLOW; URINE GLUCOSE (UA) 3+ (NEGATIVE); URINE KETONE NEGATIVE (NEGATIVE); URINE NITRITE NEGATIVE (NEGATIVE); URINE UROBILINOGEN NEGATIVE mg/dL (0.2-1.0)
[2018-03-29 21:33] LABS: URINE LEUK ESTERASE 3+ (NEGATIVE); URINE PROTEIN 2+ (NEGATIVE)
[2018-03-29 21:36] LABS: EPI CELLS RARE /HPF (FEW); URINE BACTERIA FEW /hpf (NONE SEEN); URINE HYALINE CAST 7 /lpf; URINE MUCUS RARE
[2018-03-29 22:08] LABS: ACTIVATED PTT 26.8 SECONDS (25.2-36.5); INR 0.93 (0.83-1.09); PROTHROMBIN TIME (PATIENT) 10.5 SEC (9.7-13.0)
[2018-03-29 22:44] LABS: ALBUMIN 3.2 g/dl (3.4-5.0); ALK PHOS 70 U/L (45-117); ANION GAP 10 MMOL/L (8-16); BILIRUBIN,TOTAL 0.3 mg/dL (0.2-1); BLOOD UREA NITROGEN 51 mg/dL (7-18); CHLORIDE 104 mmol/L (98-107); CO2 24 mmol/L (21-32); CREATININE 1.9 mg/dL (0.55-1.3); GLUCOSE,RANDOM 134 mg/dL (74-106); POTASSIUM 4.4 mmol/L (3.5-5.1); SGOT/AST 29 U/L (15-37); SGPT/ALT 43 U/L (13-61); SODIUM 138 mmol/L (136-145); TOT PROT 7.4 g/dl (6.4-8.2)
[2018-03-29] MEDS ORDERED: SULFAMETHOXAZOLE/TRIMETHOPRIM 800MG/160MG D.S. TABLET PO ONE (22:50)
[2018-03-29] MEDS ORDERED: SULFAMETHOXAZOLE/TRIMETHOPRIM 800MG/160MG D.S. TABLET ONE (23:07)
--- NOTE | 2018-03-30 10:52 | EKG ---
Test Reason : Blood Pressure : / mmHG Vent. Rate : 087 BPM Atrial Rate : 087 BPM P-R Int : 158 ms QRS Dur : 088 ms QT Int : 364 ms P-R-T Axes : 045 -06 069 degrees QTc Int : 438 ms NORMAL SINUS RHYTHM MODERATE VOLTAGE CRITERIA FOR LVH, MAY BE NORMAL VARIANT INFERIOR INFARCT (CITED ON OR BEFORE 19-JUL-2014) ABNORMAL ECG Confirmed by MD CECIL, NISREEN ([id number]) on 03/30/2018 10:52:15 AM Referred By: Confirmed By:NISREEN JACOB MD
== END 2018-03-29 23:15 | disposition home or self-care (01) ==
LOC: JER 18:07
PROC: 0T9B70Z Drainage of Bladder with Drainage Device, Via Natural or Artificial Opening (ICD-10-PCS; principal; 2018-03-29)
PROC: 3E0337Z Introduction of Electrolytic and Water Balance Substance into Peripheral Vein, Percutaneous Approach (ICD-10-PCS; 2018-03-29)
DX: N39.0 Urinary tract infection, site not specified (principal); I25.10 Atherosclerotic heart disease of native coronary artery without angina pectoris; I10 Essential (primary) hypertension; Z95.1 Presence of aortocoronary bypass graft; Z95.5 Presence of coronary angioplasty implant and graft; E11.9 Type 2 diabetes mellitus without complications; Z79.4 Long term (current) use of insulin; E78.5 Hyperlipidemia, unspecified
CPT/HCPCS: 36415; 71045-TC-FY; 80053; 81003; 81015; 83605; 85025; 85610; 85730; 87040; 87086; 87186; 93005; 93010; 99283-25; J7030

== ENCOUNTER 2018-05-07 10:57 | Inpatient (IN) | payer OTHER ==
--- NOTE | 2018-05-07 11:41 | PDOC ---
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 Patient states that he saw his endcrinologist who would like him to be admitted for concern of infection and given IV antibiotics. Patient states that he has had this wound on the the great toe of his left foot for approximately 2 months but states that it became worse yesterday. Patient denies any current fever but states that he was febrile yesterday at his track subway repair supervisor's office. He denies any current pain at the affected region. He denies any fever, chills, numbness or tingling, trauma. Certified Professional Ergonomist - Dr. Ocampo Mirror Polisher - Blade Bojorquez Admit under Dr. Robison <Haile Rush - Last Filed: 05/07/18 13:57> <Pauline Goff - Last Filed: 05/07/18 20:02> - General Chief Complaint: Wound Stated Complaint: PCP SENT FOR ADMIN Time Seen by Provider: 05/07/18 11:20 Past History <Emilia Lujan - Last Filed: 05/07/18 13:04> - Past Medical History Cardiac Disorders: Yes COPD: No Diabetes: Yes HTN: Yes Hypercholesterolemia: Yes - Surgical History Cardiac Surgery: Yes (STENTS, BYPASS) - Immunization History Immunization Up to Date: Yes - Suicide/Smoking/Psychosocial Hx Smoking History: Former smoker Have you smoked in the past 12 months: No If you are a former smoker, when did you quit?: 1979 Information on smoking cessation initiated: No Hx Alcohol Use: No Drug/Substance Use Hx: No Substance Use Type: None <Haile Rush - Last Filed: 05/07/18 13:57> <Pauline Goff - Last Filed: 05/07/18 20:02> - Past Medical History Allergies/Adverse Reactions: Allergies Allergy/AdvReac Type Severity Reaction Status Date / Time No Known Allergies Allergy Verified 05/07/18 11:08 Home Medications: Ambulatory Orders Aspirin [ASA -] 81 mg PO DAILY 07/19/16 Clopidogrel Bisulfate [Plavix -] 75 mg PO DAILY 07/19/16 Rosuvastatin [Crestor -] 40 mg PO DAILY 07/19/16 Tamsulosin HCl [Flomax] 0.4 mg PO HS #7 cap.er.24h 06/07/17 Amlodipine Besylate [Norvasc -] 10 mg PO DAILY tablet 12/29/17 Insulin Sliding Scale [Novolog Vial Sliding Scale -] 1 vial SQ TIDAC units Insulin (Levemir) [Levemir Vial] 50 units SQ AM 03/12/18 Lisinopril [Prinivil] 5 mg PO BID 03/12/18 Sulfamethoxazole/Trimethoprim [Bactrim Ds -] 1 tab PO BID #20 tablet 03/29/18 Review of Systems - Review of Systems Able to Perform ROS?: Yes Comments:: 05/07/18 13:00 CONSTITUTIONAL: No reported: Fever, Chills, Diaphoresis, Generalized Weakness, Malaise, Loss of Appetite HEENT: No reported: Rhinorrhea, Nasal Congestion, Throat Pain, Throat Swelling, Difficulty Swallowing, Mouth Swelling, Ear Pain, Eye Pain, Visual Changes CARDIOVASCULAR: No reported: Chest Pain, Syncope, Palpitations, Irregular Heart Rate, Lightheadedness, Peripheral Edema RESPIRATORY: No reported: Cough, Shortness of Breath, SOB with Exertion, Orthopnea, Wheezing , Stridor, Hemoptysis GASTROINTESTINAL: No reported: Abdominal pain, Abdominal Distension, Nausea, Vomiting, Diarrhea, Constipation, Melena, Hematochezia GENITOURINARY: No reported: Dysuria, Frequency, Urgency, Hesitancy, Flank Pain, Genital Pain MUSCULOSKELETAL: No reported: Myalgia, Arthralgia, Joint Swelling, Back pain, Neck Pain SKIN: +wound No reported: Rash, Itching, Pallor HEMEATOLOGIC/IMMUNOLOGIC: No reported: Easy Bleeding, Easy Bruising, Lymphadenopathy, Frequent infections ENDOCRINE: No reported: Unexplained Weight Gain, Unexplained Weight Loss, Heat Intolerance , Cold Intolerance NEUROLOGIC: No reported: Headache, Focal Weakness, Paresthesias, Vertigo, Lightheadedness, Unsteady Gait, Seizure, Mental Status Changes, Incontinence PSYCHIATRIC: No reported: Anxiety, Depression <Victor Manuel,Haile - Last Filed: 05/07/18 13:57> *Physical Exam - Vital Signs Last Vital Signs Temp Pulse Resp BP Pulse Ox 98.5 F 76 16 156/82 99 05/07/18 11:08 05/07/18 11:08 05/07/18 11:08 05/07/18 11:08 05/07/18 11:08 <Emilia Lujan - Last Filed: 05/07/18 13:04> - Vital Signs Last Vital Signs Temp Pulse Resp BP Pulse Ox 98.5 F 76 16 156/82 99 05/07/18 11:08 05/07/18 11:08 05/07/18 11:08 05/07/18 11:08 05/07/18 11:08 - Physical Exam Comments: 05/07/18 13:01 GENERAL: The patient is awake, alert, and fully oriented, Nontoxic - in no acute distress. HEAD: Normocephalic, atraumatic. EYES: extraocular movements intact, sclera anicteric, conjunctiva clear. ENT: Normal voice, Moist mucous membranes. NECK: Normal range of motion, supple LUNGS: Breath sounds equal, clear to auscultation bilaterally. No wheezes, no rhonchi, no rales. HEART: Regular rate and rhythm, without murmur, rub or gallop. ABDOMEN: Soft, nontender, No guarding, no rebound.No CVA tenderness EXTREMITIES: Normal range of motion, no edema. No cyanosis. No erythema, or tenderness. NEUROLOGICAL: No facial assymetry, Normal speech, PSYCH: Normal mood, normal affect. SKIN: +ulcer to the 1st hallux, no surrounding erythema, dinduration, fluctuance , discharge <Haile Rush - Last Filed: 05/07/18 13:57> - Vital Signs Last Vital Signs Temp Pulse Resp BP Pulse Ox 98.1 F 64 18 150/69 97 05/07/18 18:03 05/07/18 18:03 05/07/18 18:03 05/07/18 18:03 05/07/18 18:03 <Pauline Goff - Last Filed: 05/07/18 20:02> Heart Score/ECG Review - ECG Impressions Comment:: 05/07/18 13:57 Twelve-lead EKG was performed and reviewed by me. There is normal sinus rhythm with a normal rate. Rate of 77 The intervals are normal. Q waves in the inferior leads <Haile Rush - Last Filed: 05/07/18 13:57> ED Treatment Course - LABORATORY CBC & Chemistry Diagram: 05/07/18 11:47 05/07/18 11:47 - ADDITIONAL ORDERS Additional order review: Laboratory Results 05/07/18 11:47 Sodium 133 L Potassium 5.4 H Chloride 100 Carbon Dioxide 20 L Anion Gap 13 BUN 60 H Creatinine 2.6 H Creat Clearance w eGFR 24.74 Random Glucose 296 H Calcium 8.8 Total Bilirubin 0.4 AST 20 ALT 34 Alkaline Phosphatase 74 Total Protein 7.8 Albumin 3.6 05/07/18 11:47 RBC 4.36 MCV 88.0 MCHC 32.5 RDW 14.5 MPV 10.4 Neutrophils % 80.5 Lymphocytes % 8.6 Monocytes % 9.9 Eosinophils % 0.4 Basophils % 0.6 - Consult/PCP Time Called: 13:04 (Paged service for Dr. Barbour, awaiting callback) <Emilia Lujan - Last Filed: 05/07/18 13:04> - LABORATORY CBC & Chemistry Diagram: 05/07/18 11:47 05/07/18 11:47 - RADIOLOGY Radiology Studies Ordered: Category Date Time Status CHEST X-RAY PORTABLE* [RAD] Stat Radiology 05/07/18 11:39 Ordered <Haile Rush - Last Filed: 05/07/18 13:57> - LABORATORY CBC & Chemistry Diagram: 05/07/18 11:47 05/07/18 15:00 - ADDITIONAL ORDERS Additional order review: Laboratory Results 05/07/18 05/07/18 05/07/18 11:47 11:47 11:47 PT with INR 11.70 INR 0.99 Sodium 133 L Potassium 5.4 H Chloride 100 Carbon Dioxide 20 L Anion Gap 13 BUN 60 H Creatinine 2.6 H Creat Clearance w eGFR 24.74 Random Glucose 296 H Calcium 8.8 Total Bilirubin 0.4 AST 20 ALT 34 Alkaline Phosphatase 74 C-Reactive Protein 4.6 H Total Protein 7.8 Albumin 3.6 Blood Type A POSITIVE Antibody Screen Negative 05/07/18 11:47 RBC 4.36 MCV 88.0 MCHC 32.5 RDW 14.5 MPV 10.4 Neutrophils % 80.5 Lymphocytes % 8.6 Monocytes % 9.9 Eosinophils % 0.4 Basophils % 0.6 - Medications Given in the ED: ED Medications Discontinued Medications Generic Name Dose Route Start Last Admin Trade Name Chapo PRN Reason Stop Dose Admin Vancomycin HCl 1,000 mg/ 250 mls @ 166.667 mls/hr 05/07/18 12:59 05/07/18 13: 07 Dextrose IVPB 05/07/18 14:28 166.667 mls/hr ONCE ONE Administration Protocol Piperacillin Sod/Tazobactam 100 mls @ 200 mls/hr 05/07/18 12:59 05/07/18 13: 07 Sod 4.5 gm/ Dextrose IVPB 05/07/18 13:28 200 mls/hr ONCE ONE Administration Protocol Sodium Chloride 500 mls @ 500 mls/hr 05/07/18 13:02 05/07/18 13:12 Normal Saline - IV 05/07/18 14:01 500 mls/hr ASDIR STA Administration Sodium Chloride 1,000 mls @ 1,000 mls/hr 05/07/18 13:24 05/07/18 13:37 Normal Saline - IV 05/07/18 14:23 1,000 mls/hr .Q1H ONE Administration <Pauline Goff - Last Filed: 05/07/18 20:02> Medical Decision Making - Medical Decision Making 05/07/18 13:00 65y M hx of IDDM, cad sp CABG, htn, hl sent to the ED for L foot wound by Podiatry, sp debridement Referred for IV abx for admission. Wound x 2 months, but worsened recently. denies any fever/chills, numbness/ tingling/weakness, trauma, noted to febrile yesterday. 05/07/18 13:01 will admit for further mangaement labs noted for FRANKI will pag edr. Fernando stable for med surg 05/07/18 13:[address] Barbour, covering for dr. robison agree with admission for further mangement Case discussed in detail with admitting physician including history, physical exam and ancillary studies. Admitting physician has assumed care for the patient, will follow all pending diagnostics and will complete the evaluation and treatment. <Haile Rush - Last Filed: 05/07/18 13:57> - Medical Decision Making 05/07/18 20:01 Pt had a glc of 300 and he ate dinner. I will administer 4U SQ insulin, as his next insulin dose will be in the AM. Pt ought to be stable to go up afterwards. <Pauline Goff - Last Filed: 05/07/18 20:02> *DC/Admit/Observation/Transfer - Attestations Scribe Attestion: 05/07/18 12:43 Documentation prepared by Emilia Lujan, acting as neuropsychology medical consultant for Haile Rush MD. <Emilia Lujan - Last Filed: 05/07/18 13:04> - Discharge Dispostion Decision to Admit order: Yes <Haile Rush - Last Filed: 05/07/18 13:57> <Pauline Goff - Last Filed: 05/07/18 20:02> Diagnosis at time of Disposition: FRANKI (acute kidney injury), Foot ulcer due to secondary DM - Discharge Dispostion Condition at time of disposition: Stable
[2018-05-07 12:02] LABS: BASO % 0.6 % (0-2.0); EOS % 0.4 % (0-4.5); HEMATOCRIT 38.4 % (35.4-49); HEMOGLOBIN 12.5 GM/dL (11.7-16.9); LYMPH % 8.6 % (8-40); MCH 28.6 pg (25.7-33.7); MCHC 32.5 g/dl (32.0-35.9); MEAN PLT VOLUME 10.4 fl (7.5-11.1); MONO % 9.9 % (3.8-10.2); NEUT % 80.5 % (42.8-82.8); PLATELET COUNT 178 K/MM3 (134-434); RBC 4.36 M/mm3 (4.00-5.60); RDW 14.5 % (11.9-15.9); WHITE BLOOD COUNT 8.5 K/mm3 (4.0-10.0)
[2018-05-07 12:29] LABS: ALBUMIN 3.6 g/dl (3.4-5.0); ALK PHOS 74 U/L (45-117); ANION GAP 13 MMOL/L (8-16); BILIRUBIN,TOTAL 0.4 mg/dL (0.2-1); BLOOD UREA NITROGEN 60 mg/dL (7-18); CALCIUM 8.8 mg/dL (8.5-10.1); CHLORIDE 100 mmol/L (98-107); CO2 20 mmol/L (21-32); CREATININE 2.6 mg/dL (0.55-1.3); GLUCOSE,RANDOM 296 mg/dL (74-106); POTASSIUM 5.4 mmol/L (3.5-5.1); SGOT/AST 20 U/L (15-37); SGPT/ALT 34 U/L (13-61); SODIUM 133 mmol/L (136-145); TOT PROT 7.8 g/dl (6.4-8.2)
[2018-05-07 12:51] LABS: INR 0.99 (0.83-1.09); PROTHROMBIN TIME (PATIENT) 11.7 SEC (9.7-13.0)
[2018-05-07] MEDS ORDERED: VANCOMYCIN 1,000 MG in DEXTROSE 5%-WATER - 250 ML IVPB ONE (12:59)
[2018-05-07] MEDS ORDERED: PIPERACILLIN/TAZOB 4.5 GM 4.5 GM in DEXTROSE 5%-WATER 100 ML IVPB ONE (12:59)
[2018-05-07] MEDS ORDERED: VANCOMYCIN 1 GRAM (PRE-DOCKED) 1,000 MG/250 ML BAG IVPB ONE (13:01)
[2018-05-07] MEDS ORDERED: PIPERACILLIN/TAZOB 4.5 GM 4.5 GM/100 ML BAG IVPB ONE (13:01)
[2018-05-07] MEDS ORDERED: SODIUM CHLORIDE 500 ML IV STA (13:02)
[2018-05-07] MEDS ORDERED: SODIUM CHLORIDE 1,000 ML IV ONE (13:24)
--- NOTE | 2018-05-07 13:27 | CON.ID ---
Consult Consult Specialty:: infectious diseases Referred by:: Reason for Consultation:: infected left toe - History of Present Illness Chief Complaint: non healing of the left toe History of Present Illness: 68 year old male with PMHx of DM, HTN, HLD, CAD s/p CABG, diabetic foot wound, who admitted for concern of left foot wound infection. Patient states that he saw his endcrinologist who would like him to be admitted for concern of infection and given IV antibiotics. Patient states that he has had this wound on the the great toe of his left foot for approximately 2 months but states that it became worse yesterday. Patient denies any current fever but states that he was febrile yesterday at his chain dyer's office. He denies any current pain at the affected region. 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: Yes: Migraine Cardio/Vascular: Yes: CAD, HTN, Hyperlipdemia, [place] Gastrointestinal: Yes: GERD Renal/: Yes: Renal Inusuff Endocrine: Yes: Diabetes Mellitus - Past Surgical History Past Surgical History: Yes: Stent - Alcohol/Substance Use Hx Alcohol Use: No - Smoking History Smoking history: Former smoker Have you smoked in the past 12 months: No If you are a former smoker, when did you quit?: 1979 Home Medications - Allergies Allergies/Adverse Reactions: Allergies Allergy/AdvReac Type Severity Reaction Status Date / Time No Known Allergies Allergy Verified 05/07/18 11:08 - Home Medications Home Medications: Ambulatory Orders Aspirin [ASA -] 81 mg PO DAILY 07/19/16 Clopidogrel Bisulfate [Plavix -] 75 mg PO DAILY 07/19/16 Rosuvastatin [Crestor -] 40 mg PO DAILY 07/19/16 Tamsulosin HCl [Flomax] 0.4 mg PO HS #7 cap.er.24h 06/07/17 Amlodipine Besylate [Norvasc -] 10 mg PO DAILY tablet 12/29/17 Insulin Sliding Scale [Novolog Vial Sliding Scale -] 1 vial SQ TIDAC units Insulin (Levemir) [Levemir Vial] 50 units SQ AM 03/12/18 Lisinopril [Prinivil] 5 mg PO BID 03/12/18 Sulfamethoxazole/Trimethoprim [Bactrim Ds -] 1 tab PO BID #20 tablet 03/29/18 Review of Systems - Review of Systems Constitutional: reports: No Symptoms Eyes: reports: No Symptoms HENT: reports: No Symptoms Neck: reports: No Symptoms Cardiovascular: reports: No Symptoms Respiratory: reports: No Symptoms Gastrointestinal: reports: No Symptoms Genitourinary: reports: No Symptoms Musculoskeletal: reports: Other (infected left toe) Integumentary: reports: Change in Color Neurological: reports: No Symptoms Endocrine: reports: No Symptoms Hematology/Lymphatic: reports: No Symptoms Psychiatric: reports: No Symptoms Physical Exam Vital Signs: Vital Signs Temperature 98.5 F 05/07/18 11:08 Pulse Rate 76 05/07/18 11:08 Respiratory Rate 16 05/07/18 11:08 Blood Pressure 156/82 05/07/18 11:08 O2 Sat by Pulse Oximetry (%) 99 05/07/18 11:08 Constitutional: Yes: Well Nourished, No Distress, Calm Eyes: Yes: Conjunctiva Clear HENT: Yes: Atraumatic, Normocephalic Neck: Yes: Supple, Trachea Midline Cardiovascular: Yes: Regular Rate and Rhythm Respiratory: Yes: Regular, CTA Bilaterally Gastrointestinal: Yes: Normal Bowel Sounds, Soft Musculoskeletal: Yes: Other Extremities: Yes: Other Integumentary: Yes: Erythema, Other Wound/Incision: Yes: Dressing Dry and Intact Neurological: Yes: Alert, Oriented Psychiatric: Yes: Alert, Oriented Labs: CBC, BMP 05/07/18 11:47 05/07/18 11:47 Imaging - Results Chest X-ray: Report Reviewed, Image Reviewed X-ray: Report Reviewed, Image Reviewed Assessment/Plan Problem List - Problems (1) Foot ulcer due to secondary DM Code(s): E13.621 - OTHER SPECIFIED DIABETES MELLITUS WITH FOOT ULCER; L97.509 - NON-PRESSURE CHRONIC ULCER OTH PRT UNSP FOOT W UNSP SEVERITY (2) FRANKI (acute kidney injury) Code(s): N17.9 - ACUTE KIDNEY FAILURE, UNSPECIFIED (3) BPH (benign prostatic hypertrophy) Code(s): N40.0 - BENIGN PROSTATIC HYPERPLASIA WITHOUT LOWER URINRY TRACT SYMP Qualifiers: Lower urinary tract symptom presence: symptoms present Qualified Code(s): N40.1 - Benign prostatic hyperplasia with lower urinary tract symptoms (4) Diabetes Code(s): E11.9 - TYPE 2 DIABETES MELLITUS WITHOUT COMPLICATIONS 5 r/o osteo of the foot plan will start patient on abx mri of the foot wound care rest as per the podiatry team
--- NOTE | 2018-05-07 13:30 | CONSULT ---
Consult Consult Specialty:: Podiatry Reason for Consultation:: Infected left big toe with possible om. - History of Present Illness Chief Complaint: Infected left big toe History of Present Illness: Wound care patient who is non compliant at times. Presented to wound care with infected deep wound left toe. 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: Yes: Migraine Cardio/Vascular: Yes: CAD, HTN, Hyperlipdemia, [place] Gastrointestinal: Yes: GERD Renal/: Yes: Renal Inusuff Endocrine: Yes: Diabetes Mellitus - Past Surgical History Past Surgical History: Yes: Stent - Alcohol/Substance Use Hx Alcohol Use: No - Smoking History Smoking history: Former smoker Have you smoked in the past 12 months: No If you are a former smoker, when did you quit?: 1979 Home Medications - Allergies Allergies/Adverse Reactions: Allergies Allergy/AdvReac Type Severity Reaction Status Date / Time No Known Allergies Allergy Verified 05/07/18 11:08 - Home Medications Home Medications: Ambulatory Orders Aspirin [ASA -] 81 mg PO DAILY 07/19/16 Clopidogrel Bisulfate [Plavix -] 75 mg PO DAILY 07/19/16 Rosuvastatin [Crestor -] 40 mg PO DAILY 07/19/16 Tamsulosin HCl [Flomax] 0.4 mg PO HS #7 cap.er.24h 06/07/17 Amlodipine Besylate [Norvasc -] 10 mg PO DAILY tablet 12/29/17 Insulin Sliding Scale [Novolog Vial Sliding Scale -] 1 vial SQ TIDAC units Insulin (Levemir) [Levemir Vial] 50 units SQ AM 03/12/18 Lisinopril [Prinivil] 5 mg PO BID 03/12/18 Sulfamethoxazole/Trimethoprim [Bactrim Ds -] 1 tab PO BID #20 tablet 03/29/18 Physical Exam Vital Signs: Vital Signs Temperature 98.5 F 05/07/18 11:08 Pulse Rate 76 05/07/18 11:08 Respiratory Rate 16 05/07/18 11:08 Blood Pressure 156/82 05/07/18 11:08 O2 Sat by Pulse Oximetry (%) 99 05/07/18 11:08 Extremities: Yes: Other (+grade 2-3 wound left big toe, +localized cellulitis, elevated wbc, wound c&s done yesterday, awaiting 05/06/18 culture) Labs: CBC, BMP 05/07/18 11:47 05/07/18 11:47 Problem List - Problems (1) Foot ulcer due to secondary DM Assessment/Plan: r/o om grade 2-3 wound left hallux ID consult. Vascular consult. Santyl to left big toe. Orthowedge shoe left when ambulating. Code(s): E13.621 - OTHER SPECIFIED DIABETES MELLITUS WITH FOOT ULCER; L97.509 - NON-PRESSURE CHRONIC ULCER OTH PRT UNSP FOOT W UNSP SEVERITY
--- NOTE | 2018-05-07 14:46 | CONSULT ---
Consult Consult Specialty:: Nephrology Reason for Consultation:: FRANKI - History of Present Illness Chief Complaint: sent in for left toe infection History of Present Illness: Pt is a 68 year old male with pmhx of DM, HTN, CKD, CAD, DFU, and CABG who was sent in for evaluaet of left foot toe infection. He was sent in for IV abx. He was found to have worsening of his renal function and I was called to evaluate him. He denies fevers or chills. He denies dysuria or hematuria. He denies nsaid use. 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 Cardio/Vascular: Yes: CAD, HTN, Hyperlipdemia, [place] Gastrointestinal: Yes: GERD Renal/: Yes: Renal Inusuff Endocrine: Yes: Diabetes Mellitus - Past Surgical History Past Surgical History: Yes: Stent - Alcohol/Substance Use Hx Alcohol Use: No - Smoking History Smoking history: Former smoker Have you smoked in the past 12 months: No If you are a former smoker, when did you quit?: 1979 Home Medications - Allergies Allergies/Adverse Reactions: Allergies Allergy/AdvReac Type Severity Reaction Status Date / Time No Known Allergies Allergy Verified 05/07/18 11:08 - Home Medications Home Medications: Ambulatory Orders Aspirin [ASA -] 81 mg PO DAILY 07/19/16 Clopidogrel Bisulfate [Plavix -] 75 mg PO DAILY 07/19/16 Rosuvastatin [Crestor -] 40 mg PO DAILY 07/19/16 Tamsulosin HCl [Flomax] 0.4 mg PO HS #7 cap.er.24h 06/07/17 Amlodipine Besylate [Norvasc -] 10 mg PO DAILY tablet 12/29/17 Insulin Sliding Scale [Novolog Vial Sliding Scale -] 1 vial SQ TIDAC units Insulin (Levemir) [Levemir Vial] 50 units SQ AM 03/12/18 Lisinopril [Prinivil] 5 mg PO BID 03/12/18 Sulfamethoxazole/Trimethoprim [Bactrim Ds -] 1 tab PO BID #20 tablet 03/29/18 Review of Systems - Review of Systems Constitutional: reports: No Symptoms Eyes: reports: No Symptoms HENT: reports: No Symptoms Neck: reports: No Symptoms Cardiovascular: reports: No Symptoms Gastrointestinal: reports: No Symptoms Genitourinary: reports: No Symptoms Musculoskeletal: reports: Other (left foot pain) Neurological: reports: No Symptoms Endocrine: reports: No Symptoms Hematology/Lymphatic: reports: No Symptoms Psychiatric: reports: No Symptoms Physical Exam Vital Signs: Vital Signs Temperature 98.5 F 05/07/18 11:08 Pulse Rate 76 05/07/18 11:08 Respiratory Rate 16 05/07/18 11:08 Blood Pressure 156/82 05/07/18 11:08 O2 Sat by Pulse Oximetry (%) 99 05/07/18 11:08 Constitutional: Yes: Calm Eyes: Yes: Conjunctiva Clear HENT: Yes: Atraumatic Neck: Yes: Supple Cardiovascular: Yes: S1, S2 Respiratory: Yes: CTA Bilaterally Gastrointestinal: Yes: Normal Bowel Sounds, Soft Renal/: Yes: WNL Musculoskeletal: Yes: WNL Edema: No Wound/Incision: Yes: Dressing Dry and Intact Neurological: Yes: Oriented Psychiatric: Yes: Oriented Labs: CBC, BMP 05/07/18 11:47 05/07/18 11:47 Laboratory Tests 12/25/17 12/30/17 03/12/18 15:31 06:45 21:20 WBC Hgb Sodium Potassium Creatinine 1.7 H 1.9 H Protein/Creatinin Ratio 2.32 03/29/18 03/29/18 05/06/18 20:45 21:54 13:43 WBC Hgb Sodium Potassium Creatinine Cancelled 1.9 H 2.0 H Protein/Creatinin Ratio 05/07/18 05/07/18 11:47 11:47 WBC 8.5 Hgb 12.5 Sodium 133 L Potassium 5.4 H Creatinine 2.6 H Protein/Creatinin Ratio Imaging - Results Chest X-ray: Report Reviewed Problem List - Problems (1) FRANKI (acute kidney injury) Code(s): N17.9 - ACUTE KIDNEY FAILURE, UNSPECIFIED (2) Foot ulcer due to secondary DM Code(s): E13.621 - OTHER SPECIFIED DIABETES MELLITUS WITH FOOT ULCER; L97.509 - NON-PRESSURE CHRONIC ULCER OTH PRT UNSP FOOT W UNSP SEVERITY (3) Diabetes Code(s): E11.9 - TYPE 2 DIABETES MELLITUS WITHOUT COMPLICATIONS (4) HTN (hypertension) Code(s): I10 - ESSENTIAL (PRIMARY) HYPERTENSION Qualifiers: Hypertension type: essential hypertension Qualified Code(s): I10 - Essential (primary) hypertension (5) Renal insufficiency Code(s): N28.9 - DISORDER OF KIDNEY AND URETER, UNSPECIFIED Assessment/Plan Current Medications Generic Name Dose Route Start Last Admin Trade Name Chapo PRN Reason Stop Dose Admin Collagenase 1 applic 05/07/18 13:30 Santyl - TP DAILY PRATIK Protocol Heparin Sodium (Porcine) 5,000 unit 05/07/18 22:00 Heparin - SQ BID PRATIK Piperacillin Sod/Tazobactam 50 mls @ 100 mls/hr 05/07/18 18:00 Sod 2.25 gm/ Dextrose IVPB Q8H-IV PRATIK Protocol Impression 1. CKD 2. DM 3. HTN 4. DFU 5. HLD 6. BPH 7. osteo 8. proteinuria 9. FRANKI 10. hyperkalemia Plan - will start fluids - repeat labs after first liter of saline - check ultrasound kidneys and bladder - renal diet, pt says that he has been eating banans daily - hold mal until potassium is stable - abx per ID - will follow Dr Porter
[2018-05-07] MEDS: COLLAGENASE CLOSTRIDIUM HIST. 30 GRAMS TUBE TP SCH (14:55)
--- NOTE | 2018-05-07 15:39 | HP ---
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 Patient states that he saw his endcrinologist who would like him to be admitted for concern of infection and given IV antibiotics. Patient states that he has had this wound on the the great toe of his left foot for approximately 2 months but states that it became worse yesterday. Patient denies any current fever but states that he was febrile yesterday at his nuclear plant instrument technician's office. He denies any current pain at the affected region. 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: Yes: Migraine Cardiovascular: Yes: CAD, HTN, Hyperlipdemia, [place] Gastrointestinal: Yes: GERD Renal/: Yes: Renal Inusuff Endocrine: Yes: Diabetes Mellitus - Past Surgical History Past Surgical History: Yes: Stent - Smoking History Smoking history: Former smoker Have you smoked in the past 12 months: No If you are a former smoker, when did you quit?: 1979 - Alcohol/Substance Use Hx Alcohol Use: No Home Medications - Allergies Allergies/Adverse Reactions: Allergies Allergy/AdvReac Type Severity Reaction Status Date / Time No Known Allergies Allergy Verified 05/07/18 11:08 - Home Medications Home Medications: Ambulatory Orders Aspirin [ASA -] 81 mg PO DAILY 07/19/16 Clopidogrel Bisulfate [Plavix -] 75 mg PO DAILY 07/19/16 Rosuvastatin [Crestor -] 40 mg PO DAILY 07/19/16 Tamsulosin HCl [Flomax] 0.4 mg PO HS #7 cap.er.24h 06/07/17 Amlodipine Besylate [Norvasc -] 10 mg PO DAILY tablet 12/29/17 Insulin Sliding Scale [Novolog Vial Sliding Scale -] 1 vial SQ TIDAC units Insulin (Levemir) [Levemir Vial] 50 units SQ AM 03/12/18 Lisinopril [Prinivil] 5 mg PO BID 03/12/18 Sulfamethoxazole/Trimethoprim [Bactrim Ds -] 1 tab PO BID #20 tablet 03/29/18 Review of Systems - Review of Systems Integumentary: reports: Wound (left foot wound yellowish discharge) Physical Examination Vital Signs: Vital Signs Temperature 98.5 F 05/07/18 11:08 Pulse Rate 76 05/07/18 11:08 Respiratory Rate 16 05/07/18 11:08 Blood Pressure 156/82 05/07/18 11:08 O2 Sat by Pulse Oximetry (%) 99 05/07/18 11:08 Labs: CBC, BMP 05/07/18 11:47 Imaging - Results X-ray: Pending Problem List - Problems (1) Foot ulcer due to secondary DM Assessment/Plan: podiatry and ID iv abx MRI to r/o osteo Code(s): E13.621 - OTHER SPECIFIED DIABETES MELLITUS WITH FOOT ULCER; L97.509 - NON-PRESSURE CHRONIC ULCER OTH PRT UNSP FOOT W UNSP SEVERITY (2) FRANKI (acute kidney injury) Assessment/Plan: ivf renal consult renal diet renal sono avoid NSAIDs hold ACEI given inc Cr and K Code(s): N17.9 - ACUTE KIDNEY FAILURE, UNSPECIFIED (3) BPH (benign prostatic hypertrophy) Assessment/Plan: flomax bladder sono Code(s): N40.0 - BENIGN PROSTATIC HYPERPLASIA WITHOUT LOWER URINRY TRACT SYMP Qualifiers: Lower urinary tract symptom presence: symptoms present Qualified Code(s): N40.1 - Benign prostatic hyperplasia with lower urinary tract symptoms (4) Diabetes Assessment/Plan: bgm levemir Code(s): E11.9 - TYPE 2 DIABETES MELLITUS WITHOUT COMPLICATIONS
[2018-05-07 16:00] LABS: ANION GAP 10 MMOL/L (8-16); BLOOD UREA NITROGEN 57 mg/dL (7-18); CALCIUM 8.5 mg/dL (8.5-10.1); CHLORIDE 102 mmol/L (98-107); CO2 21 mmol/L (21-32); CREATININE 2.4 mg/dL (0.55-1.3); POTASSIUM 4.7 mmol/L (3.5-5.1); SODIUM 133 mmol/L (136-145)
--- NOTE | 2018-05-07 16:01 | PN ---
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: Laboratory Tests 05/07/18 15:00 Sodium 133 L Potassium 4.7 BUN 57 H Creatinine 2.4 H repeat labs reviewed potassium improved Problem List - Problems (1) FRANKI (acute kidney injury) Code(s): N17.9 - ACUTE KIDNEY FAILURE, UNSPECIFIED (2) Foot ulcer due to secondary DM Code(s): E13.621 - OTHER SPECIFIED DIABETES MELLITUS WITH FOOT ULCER; L97.509 - NON-PRESSURE CHRONIC ULCER OTH PRT UNSP FOOT W UNSP SEVERITY (3) Diabetes Code(s): E11.9 - TYPE 2 DIABETES MELLITUS WITHOUT COMPLICATIONS (4) HTN (hypertension) Code(s): I10 - ESSENTIAL (PRIMARY) HYPERTENSION Qualifiers: Hypertension type: essential hypertension Qualified Code(s): I10 - Essential (primary) hypertension (5) Renal insufficiency Code(s): N28.9 - DISORDER OF KIDNEY AND URETER, UNSPECIFIED
[2018-05-07 16:11] LABS: GLUCOSE,RANDOM 315 mg/dL (74-106)
--- NOTE | 2018-05-07 17:03 | CONSULT ---
- Consultation REQUESTING PROVIDER: CONSULT REQUEST: We have been asked to surgically evaluate this patient for (L foot ulcer). PCP:Elina King HISTORY OF PRESENT ILLNESS: 68 y/o M w/ PMHx IDDM, HTN, HLD, CAD s/p CABG (3V) in 03/2016 at [facility], chronic L DM foot wound, now sent to the ED by DPM for concern for infection. Pt states he was at the wound care center today and was told he had a fever and should come to the ED for further evaluation and admission for antibiotics. Reports being in his usual state of health the past few days. Denies fever/chills, n/v/d, cough, cp or increased drainage from his ulcers at home. States he has been eating/drinking and ambulating without issue. Reports having ulcers for the past few months, has been following up with wound care. 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 Reports having an MRI in December which was + for osteomyelitis, pt was treated with a 6 week course of iv cefepime and vancomycin. At baseline, lives home alone, ambulates without the use of any assistance devices. Has had limited ambulation lately due to ulcers. Reports use of offloading shoe to LLE due to ulcers. PMHx: PSHx: Home Medications Medication Instructions Recorded Aspirin [ASA -] 81 mg PO DAILY 07/19/16 Clopidogrel Bisulfate [Plavix -] 75 mg PO DAILY 07/19/16 Rosuvastatin [Crestor -] 40 mg PO DAILY 07/19/16 Tamsulosin HCl [Flomax] 0.4 mg PO HS #7 cap.er.24h 06/07/17 Amlodipine Besylate [Norvasc -] 10 mg PO DAILY tablet 12/29/17 Insulin Sliding Scale [Novolog 1 vial SQ TIDAC units 12/29/17 Vial Sliding Scale -] Insulin (Levemir) [Levemir Vial] 50 units SQ AM 03/12/18 Lisinopril [Prinivil] 5 mg PO BID 03/12/18 Sulfamethoxazole/Trimethoprim 1 tab PO BID #20 tablet 03/29/18 [Bactrim Ds -] Allergies Allergy/AdvReac Type Severity Reaction Status Date / Time No Known Allergies Allergy Verified 05/07/18 11:08 REVIEW OF SYSTEMS: CONSTITUTIONAL: Absent: fever, chills CARDIOVASCULAR: Absent: chest pain, syncope RESPIRATORY: Absent: cough, shortness of breath GASTROINTESTINAL: Absent: abdominal pain GENITOURINARY: Absent: dysuria Absent: myalgia PHYSICAL EXAM: GENERAL: Awake, alert, and fully oriented, in no acute distress. HEAD: Normal with no signs of trauma. LOWER EXTREMITIES: LLE with approx 2x3cm ulcer over plantar surface of great toe , wound bed clean, +mild surrounding maceration of tissue. No purulent drainage , scant fat necrosis expressed from medial aspect of ulcer, No foul odor, no surrounding erythema. R great toe with lareg callus over medial aspect of great toe, no open ulcers on RLE. Vascular; palpable fem/pop/dp b/l, pt pulses appreciated by doppler. PSYCH: Cooperative. Good eye contact. Appropriate mood and affect. Vital Signs Temperature 98.5 F 05/07/18 11:08 Pulse Rate 76 05/07/18 11:08 Respiratory Rate 16 05/07/18 11:08 Blood Pressure 156/82 05/07/18 11:08 O2 Sat by Pulse Oximetry (%) 99 05/07/18 11:08 Lab Results WBC 8.5 K/mm3 (4.0-10.0) 05/07/18 11:47 RBC 4.36 M/mm3 (4.00-5.60) 05/07/18 11:47 Hgb 12.5 GM/dL (11.7-16.9) 05/07/18 11:47 Hct 38.4 % (35.4-49) 05/07/18 11:47 MCV 88.0 fl (80-96) 05/07/18 11:47 MCHC 32.5 g/dl (32.0-35.9) 05/07/18 11:47 RDW 14.5 % (11.9-15.9) 05/07/18 11:47 Plt Count 178 K/MM3 (134-434) D 05/07/18 11:47 Sodium 133 mmol/L (136-145) L 05/07/18 15:00 Potassium 4.7 mmol/L (3.5-5.1) 05/07/18 15:00 Chloride 102 mmol/L (98-107) 05/07/18 15:00 Carbon Dioxide 21 mmol/L (21-32) 05/07/18 15:00 Anion Gap 10 MMOL/L (8-16) 05/07/18 15:00 BUN 57 mg/dL (7-18) H 05/07/18 15:00 Creatinine 2.4 mg/dL (0.55-1.3) H 05/07/18 15:00 Random Glucose 315 mg/dL (74-106) H* 05/07/18 15:00 Calcium 8.5 mg/dL (8.5-10.1) 05/07/18 15:00 Blood Type A POSITIVE 05/07/18 11:47 Antibody Screen Negative 05/07/18 11:47 INR 0.99 (0.83-1.09) 05/07/18 11:47 A/P: 68 y/o M w/ PMHx IDDM, HTN, HLD, CAD s/p CABG (3V) in 03/2016 at [facility], chronic L DM foot wound, now sent to the ED by DPM for concern for infection. In ED pt with low grade temp (99.8), remainder of vss. no leukocytosis, +FRANKI ( creatinine 2.4). Glucose >300 (A1C 05/06/18) 9.9. Chronic L DM ulcer without clinical signs of infection. -Agree with Imaging -Bacitracin to ulcer, 4x4 and kerlix changed daily -Abx per ID d/w attending Dr Roy
[2018-05-07] MEDS: SODIUM CHLORIDE 1,000 ML IV SCH ×2 (17:37→23:43)
[2018-05-07] MEDS ORDERED: PIPERACILLIN/TAZOB 2.25 GM 2.25 GM/50 ML BAG IVPB ONE (19:22)
[2018-05-07] MEDS: PIPERACILLIN/TAZOB 2.25 GM 2.25 GM in DEXTROSE 5%-WATER - 50 ML IVPB SCH (19:27)
[2018-05-07] MEDS ORDERED: INSULIN REGULAR HUMAN 100 UNITS/ML *VIAL SQ ONE (20:00)
[2018-05-07] MEDS ORDERED: INSULIN REGULAR HUMAN 100 UNITS/ML *VIAL ONE (20:01)
--- NOTE | 2018-05-07 21:12 | CONSULT ---
Consult Consult Specialty:: endocrine Referred by:: dr.saba zimmerman Reason for Consultation:: diabetes mellitus hyperglycemia - History of Present Illness Chief Complaint: foot infection History of Present Illness: 68 year old male with PMHx of DM, HTN, HLD, CAD s/p CABG, diabetic foot wound, who was sent to the ED by his ambulance driver for concern of left foot wound infection. i advised pt to be admitted for possible bone infection and high sugars since past 8 weeks however he failed to follow up would like him to be admitted for concern and given IV antibiotics. Patient states that his sugars have been elevated and has no hypoglycemia,denies nausea or vomiting. 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 Cardio/Vascular: Yes: CAD, HTN, Hyperlipdemia, [place] Gastrointestinal: Yes: GERD Renal/: Yes: Renal Inusuff Endocrine: Yes: Diabetes Mellitus - Past Surgical History Past Surgical History: Yes: Stent - Alcohol/Substance Use Hx Alcohol Use: No - Smoking History Smoking history: Former smoker Have you smoked in the past 12 months: No If you are a former smoker, when did you quit?: 1979 Home Medications - Allergies Allergies/Adverse Reactions: Allergies Allergy/AdvReac Type Severity Reaction Status Date / Time No Known Allergies Allergy Verified 05/07/18 11:08 - Home Medications Home Medications: Ambulatory Orders Aspirin [ASA -] 81 mg PO DAILY 07/19/16 Clopidogrel Bisulfate [Plavix -] 75 mg PO DAILY 07/19/16 Rosuvastatin [Crestor -] 40 mg PO DAILY 07/19/16 Tamsulosin HCl [Flomax] 0.4 mg PO HS #7 cap.er.24h 06/07/17 Amlodipine Besylate [Norvasc -] 10 mg PO DAILY tablet 12/29/17 Insulin Sliding Scale [Novolog Vial Sliding Scale -] 1 vial SQ TIDAC units Insulin (Levemir) [Levemir Vial] 50 units SQ AM 03/12/18 Lisinopril [Prinivil] 5 mg PO BID 03/12/18 Sulfamethoxazole/Trimethoprim [Bactrim Ds -] 1 tab PO BID #20 tablet 03/29/18 Review of Systems - Review of Systems Constitutional: reports: Lethargy, Weakness Eyes: reports: No Symptoms HENT: reports: No Symptoms Neck: reports: Swollen Glands Cardiovascular: reports: No Symptoms Respiratory: reports: Exercise Intolerance, Orthopnea, SOB on Exertion Gastrointestinal: reports: Bloating, Constipation Genitourinary: reports: No Symptoms Integumentary: reports: Wound Neurological: reports: Numbness, Weakness Endocrine: reports: Unexplained Weight Gain Physical Exam Vital Signs: Vital Signs Temperature 98.1 F 05/07/18 18:03 Pulse Rate 69 05/07/18 20:03 Respiratory Rate 16 05/07/18 20:03 Blood Pressure 152/78 05/07/18 20:03 O2 Sat by Pulse Oximetry (%) 97 05/07/18 18:03 Constitutional: Yes: Anxious Eyes: Yes: EOM Intact HENT: Yes: Normocephalic Neck: Yes: Trachea Midline Cardiovascular: Yes: Regular Rate and Rhythm Respiratory: Yes: CTA Bilaterally Gastrointestinal: Yes: Normal Bowel Sounds ...Rectal Exam: Yes: Deferred Renal/: Yes: WNL Breast(s): Yes: WNL Musculoskeletal: Yes: Back Pain, Joint Swelling, Muscle Pain, Muscle Weakness Edema: No Peripheral Pulses WNL: Yes Wound/Incision: Yes: Well Approximated, Draining Neurological: Yes: Alert, Oriented Labs: CBC, BMP 05/07/18 11:47 05/07/18 15:00 Problem List - Problems (1) FRANKI (acute kidney injury) Code(s): N17.9 - ACUTE KIDNEY FAILURE, UNSPECIFIED (2) Foot ulcer due to secondary DM Code(s): E13.621 - OTHER SPECIFIED DIABETES MELLITUS WITH FOOT ULCER; L97.509 - NON-PRESSURE CHRONIC ULCER OTH PRT UNSP FOOT W UNSP SEVERITY (3) Aortic root dilatation Code(s): I77.810 - THORACIC AORTIC ECTASIA (4) BPH (benign prostatic hypertrophy) Code(s): N40.0 - BENIGN PROSTATIC HYPERPLASIA WITHOUT LOWER URINRY TRACT SYMP Qualifiers: Lower urinary tract symptom presence: symptoms present Qualified Code(s): N40.1 - Benign prostatic hyperplasia with lower urinary tract symptoms (5) CAD (coronary artery disease) Code(s): I25.10 - ATHSCL HEART DISEASE OF [place] CORONARY ARTERY W/O ANG PCTRS (6) Congestive heart failure Code(s): I50.9 - HEART FAILURE, UNSPECIFIED (7) Diabetes mellitus, insulin dependent (IDDM), uncontrolled Code(s): E10.65 - TYPE 1 DIABETES MELLITUS WITH HYPERGLYCEMIA Assessment/Plan Current Active Problems FRANKI (acute kidney injury) (Acute) Foot ulcer due to secondary DM (Acute) diaabetes mellitus hyperglycemia\ diabetic neuropathy hypertension hyperlipidemia Abnormal Lab Results 05/07/18 05/07/18 05/07/18 11:47 12:06 15:00 ESR 81 H Sodium 133 L 133 L Potassium 5.4 H Carbon Dioxide 20 L BUN 60 H 57 H Creatinine 2.6 H 2.4 H Random Glucose 296 H 315 H* C-Reactive Protein 4.6 H Ur Random Chloride Urine Creatinine 05/07/18 15:00 ESR Sodium Potassium Carbon Dioxide BUN Creatinine Random Glucose C-Reactive Protein Ur Random Chloride 60 L Urine Creatinine 37.0 H Laboratory Results - last 24 hr 05/07/18 05/07/18 05/07/18 11:47 11:47 11:47 WBC 8.5 RBC 4.36 Hgb 12.5 Hct 38.4 MCV 88.0 MCH 28.6 MCHC 32.5 RDW 14.5 Plt Count 178 D MPV 10.4 Absolute Neuts (auto) 6.8 Neutrophils % 80.5 Lymphocytes % 8.6 Monocytes % 9.9 Eosinophils % 0.4 Basophils % 0.6 Nucleated RBC % 0 ESR PT with INR 11.70 INR 0.99 Sodium 133 L Potassium 5.4 H Chloride 100 Carbon Dioxide 20 L Anion Gap 13 BUN 60 H Creatinine 2.6 H Creat Clearance w eGFR 24.74 Random Glucose 296 H Calcium 8.8 Total Bilirubin 0.4 AST 20 ALT 34 Alkaline Phosphatase 74 C-Reactive Protein 4.6 H Total Protein 7.8 Albumin 3.6 Ur Random Sodium Ur Random Potassium Ur Random Chloride Urine Creatinine Blood Type Antibody Screen 05/07/18 05/07/18 05/07/18 11:47 12:06 15:00 WBC RBC Hgb Hct MCV MCH MCHC RDW Plt Count MPV Absolute Neuts (auto) Neutrophils % Lymphocytes % Monocytes % Eosinophils % Basophils % Nucleated RBC % ESR 81 H PT with INR INR Sodium 133 L Potassium 4.7 Chloride 102 Carbon Dioxide 21 Anion Gap 10 BUN 57 H Creatinine 2.4 H Creat Clearance w eGFR 27.14 Random Glucose 315 H* Calcium 8.5 Total Bilirubin AST ALT Alkaline Phosphatase C-Reactive Protein Total Protein Albumin Ur Random Sodium Ur Random Potassium Ur Random Chloride Urine Creatinine Blood Type A POSITIVE Antibody Screen Negative 05/07/18 15:00 WBC RBC Hgb Hct MCV MCH MCHC RDW Plt Count MPV Absolute Neuts (auto) Neutrophils % Lymphocytes % Monocytes % Eosinophils % Basophils % Nucleated RBC % ESR PT with INR INR Sodium Potassium Chloride Carbon Dioxide Anion Gap BUN Creatinine Creat Clearance w eGFR Random Glucose Calcium Total Bilirubin AST ALT Alkaline Phosphatase C-Reactive Protein Total Protein Albumin Ur Random Sodium 63 Ur Random Potassium 34.0 Ur Random Chloride 60 L Urine Creatinine 37.0 H Blood Type Antibody Screen plan: bgm qid novolog insulin levemir 40 units am levemir 15 units hs
[2018-05-07] MEDS: ROSUVASTATIN CA 20 MG TABLET (FP) PO SCH (23:44)
[2018-05-07] MEDS: HEPARIN NA (PORCINE) 5,000 UNITS/ML 1ML VIAL SQ SCH (23:44)
[2018-05-07] MEDS: INSULIN SLIDING SCALE (NOVOLOG) 1 VIAL SQ SCH (23:44)
[2018-05-08] MEDS ORDERED: PIPERACILLIN/TAZOBACTAM 2.25 GM VIAL IVPB ONE ×3 (02:36→16:59)
[2018-05-08] MEDS ORDERED: DEXTROSE 5%-WATER - 50 ML IVPB ONE ×3 (02:36→16:59)
[2018-05-08] MEDS: PIPERACILLIN/TAZOB 2.25 GM 2.25 GM in DEXTROSE 5%-WATER - 50 ML IVPB SCH ×3 (02:47→17:05)
[2018-05-08 05:12] VITALS: BMI 24.8
[2018-05-08] MEDS: INSULIN SLIDING SCALE (NOVOLOG) 1 VIAL SQ SCH ×4 (06:46→21:36)
[2018-05-08] MEDS: INSULIN (LEVEMIR) 100 UNITS/ML UNITS SQ SCH (06:46)
[2018-05-08] MEDS ORDERED: INSULIN (NOVOLOG) ASPART 100 UNITS/ML 10ML VIAL ONE ×2 (08:02→11:16)
[2018-05-08] MEDS ORDERED: INSULIN (LEVEMIR) 100 UNITS/ML UNITS SQ ONE (08:02)
[2018-05-08 08:06] LABS: BASO % 0.8 % (0-2.0); EOS % 3.2 % (0-4.5); HEMATOCRIT 36.8 % (35.4-49); HEMOGLOBIN 12.6 GM/dL (11.7-16.9); LYMPH % 15.9 % (8-40); MCH 30.1 pg (25.7-33.7); MCHC 34.3 g/dl (32.0-35.9); MEAN CELL VOLUME 87.9 fl (80-96); MEAN PLT VOLUME 10.1 fl (7.5-11.1); MONO % 15.5 % (3.8-10.2); NEUT % 64.6 % (42.8-82.8); PLATELET COUNT 161 K/MM3 (134-434); RBC 4.19 M/mm3 (4.00-5.60); RDW 14.8 % (11.9-15.9); WHITE BLOOD COUNT 6.5 K/mm3 (4.0-10.0)
[2018-05-08] MEDS: TAMSULOSIN HCL 0.4 MG CAP PO SCH (08:20)
[2018-05-08 08:59] LABS: ALBUMIN 3.2 g/dl (3.4-5.0); ALK PHOS 63 U/L (45-117); ANION GAP 7 MMOL/L (8-16); BILIRUBIN,TOTAL 0.4 mg/dL (0.2-1); BLOOD UREA NITROGEN 44 mg/dL (7-18); CALCIUM 8.6 mg/dL (8.5-10.1); CHLORIDE 106 mmol/L (98-107); CO2 25 mmol/L (21-32); CREATININE 1.9 mg/dL (0.55-1.3); GLUCOSE,RANDOM 120 mg/dL (74-106); MAGNESIUM 2.4 mg/dL (1.8-2.4); POTASSIUM 4.8 mmol/L (3.5-5.1); SGOT/AST 24 U/L (15-37); SGPT/ALT 32 U/L (13-61); SODIUM 138 mmol/L (136-145); TOT PROT 7.1 g/dl (6.4-8.2)
[2018-05-08] MEDS: CLOPIDOGREL BISULFATE 75 MG TABLET (FP) PO SCH (09:43)
[2018-05-08] MEDS: ASPIRIN 81 MG CHEWABLE TABLETS PO SCH (09:44)
[2018-05-08] MEDS: HEPARIN NA (PORCINE) 5,000 UNITS/ML 1ML VIAL SQ SCH ×2 (09:48→21:35)
[2018-05-08] MEDS ORDERED: BACITRACIN 15 GM TUBE TOPICAL OINTMENT TP SCH (10:00)
--- NOTE | 2018-05-08 10:52 | PN ---
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: Patient seen for follow up left big toe. vss, Tmax 97.6 [id number]=7.9, wbc=6.5, +improved left big toe, r/o o r/o om improved cellulitis dc bacitracin. santyl to left great toe daily. awaiting mri results. IVABX as per ID. will follow. discussed with nurse. Problem List - Problems (1) Foot ulcer due to secondary DM Code(s): E13.621 - OTHER SPECIFIED DIABETES MELLITUS WITH FOOT ULCER; L97.509 - NON-PRESSURE CHRONIC ULCER OTH PRT UNSP FOOT W UNSP SEVERITY
--- NOTE | 2018-05-08 11:03 | PN ---
Progress Note, Physician - Current Medication List Current Medications: Active Medications Aspirin (Asa -) 81 mg PO DAILY [facility] Last Admin: 05/08/18 09:44 Dose: 81 mg Bacitracin (Bacitracin -) 1 applic TP DAILY PRATIK Clopidogrel Bisulfate (Plavix -) 75 mg PO DAILY [facility] Last Admin: 05/08/18 09:43 Dose: 75 mg Collagenase (Santyl -) 1 applic TP DAILY [facility]; Protocol Last Admin: 05/07/18 14:55 Dose: 1 applic Heparin Sodium (Porcine) (Heparin -) 5,000 unit SQ BID [facility] Last Admin: 05/08/18 09:48 Dose: 5,000 unit Piperacillin Sod/Tazobactam (Sod 2.25 gm/ Dextrose) 50 mls @ 100 mls/hr IVPB Q8H-IV [facility]; Protocol Last Admin: 05/08/18 02:47 Dose: 100 mls/hr Sodium Chloride (Normal Saline -) 1,000 mls @ 50 mls/hr IV ASDIR [facility] Stop: 05/08/18 16:02 Last Admin: 05/07/18 23:43 Dose: 50 mls/hr Insulin Aspart (Novolog Vial Sliding Scale -) 1 vial SQ ACHS [facility]; Protocol Last Admin: 05/08/18 06:46 Dose: 3 units Insulin Detemir (Levemir Vial) 40 units SQ AM [facility] Last Admin: 05/08/18 06:46 Dose: 40 units Rosuvastatin Calcium (Crestor -) 40 mg PO HS [facility] Last Admin: 05/07/18 23:44 Dose: 40 mg Tamsulosin HCl (Flomax -) 0.4 mg PO DAILY@0830 [facility] Last Admin: 05/08/18 08:20 Dose: 0.4 mg - Objective Vital Signs: Vital Signs Temperature 97.6 F 05/08/18 09:37 Pulse Rate 70 05/08/18 09:37 Respiratory Rate 18 05/08/18 09:37 Blood Pressure 160/88 05/08/18 09:37 O2 Sat by Pulse Oximetry (%) 97 05/07/18 22:00 Cardiovascular: Yes: Regular Rate and Rhythm Respiratory: Yes: Regular, CTA Bilaterally Gastrointestinal: Yes: Normal Bowel Sounds, Soft Edema: No Wound/Incision: Yes: Dressing Removed, Excoriated, Unapproximated Labs: CBC, BMP 05/08/18 07:00 05/08/18 07:00 INR, PTT INR 0.99 (0.83-1.09) 05/07/18 11:47 Assessment/Plan - Problems (1) Foot ulcer due to secondary DM Assessment/Plan: podiatry and ID iv abx MRI to r/o osteo Code(s): E13.621 - OTHER SPECIFIED DIABETES MELLITUS WITH FOOT ULCER; L97.509 - NON-PRESSURE CHRONIC ULCER OTH PRT UNSP FOOT W UNSP SEVERITY (2) FRANKI (acute kidney injury) Assessment/Plan: ivf renal consult renal diet renal sono avoid NSAIDs hold ACEI given inc Cr and K Code(s): N17.9 - ACUTE KIDNEY FAILURE, UNSPECIFIED (3) BPH (benign prostatic hypertrophy) Assessment/Plan: flomax bladder sono Code(s): N40.0 - BENIGN PROSTATIC HYPERPLASIA WITHOUT LOWER URINRY TRACT SYMP Qualifiers: Lower urinary tract symptom presence: symptoms present Qualified Code(s): N40.1 - Benign prostatic hyperplasia with lower urinary tract symptoms (4) Diabetes Assessment/Plan: bgm levemir Code(s): E11.9 - TYPE 2 DIABETES MELLITUS WITHOUT COMPLICATIONS
--- NOTE | 2018-05-08 12:24 | PN ---
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: RENAL Pt is awake and alert was admitted for a wound infection and found to have franki so nephrology was called he has no speicifc complaints though he does say he had a cough recently has no trouble urinating and has no fever Last Vital Signs Temp Pulse Resp BP Pulse Ox 97.6 F 70 18 160/88 97 05/08/18 09:37 05/08/18 09:37 05/08/18 09:37 05/08/18 09:37 05/07/18 22:00 lungs crackles at right base cvs s1s2 rr abd soft ext no edema, ulceration noted but he has good DP pulse neuro a+ox3 Current Medications Generic Name Dose Route Start Last Admin Trade Name Freq PRN Reason Stop Dose Admin Aspirin 81 mg 05/08/18 10:00 05/08/18 09:44 Asa - PO 81 mg DAILY PRATIK Administration Clopidogrel Bisulfate 75 mg 05/08/18 10:00 05/08/18 09:43 Plavix - PO 75 mg DAILY PRATIK Administration Collagenase 1 applic 05/07/18 13:30 05/07/18 14:55 Santyl - TP 1 applic DAILY PRATIK Administration Protocol Heparin Sodium (Porcine) 5,000 unit 05/07/18 22:00 05/08/18 09:48 Heparin - SQ 5,000 unit BID PRATIK Administration Piperacillin Sod/Tazobactam 50 mls @ 100 mls/hr 05/07/18 18:00 05/08/18 11:06 Sod 2.25 gm/ Dextrose IVPB 100 mls/hr Q8H-IV PRATIK Administration Protocol Sodium Chloride 1,000 mls @ 50 mls/hr 05/07/18 16:15 05/07/18 23:43 Normal Saline - IV 05/08/18 16:02 50 mls/hr ASDIR PRATIK Administration Insulin Aspart 1 vial 05/07/18 22:00 05/08/18 11:35 Novolog Vial Sliding Scale - SQ 7 units ACHS PRATIK Administration Protocol Insulin Detemir 40 units 05/08/18 07:00 05/08/18 06:46 Levemir Vial SQ 40 units AM PRATIK Administration Rosuvastatin Calcium 40 mg 05/07/18 22:00 05/07/18 23:44 Crestor - PO 40 mg HS PRATIK Administration Tamsulosin HCl 0.4 mg 05/08/18 08:30 05/08/18 08:20 Flomax - PO 0.4 mg DAILY@0830 PRATIK Administration CBC, BMP 05/08/18 07:00 05/08/18 07:00 IMPRESSION foot infection does not seem too bad and he has good pulse FRANKI improved with fluids- likely prerenal PLAN obtain ua and protein continue fluids and antibiotics sonogram reviewed MV
--- NOTE | 2018-05-08 12:40 | PN ---
Progress Note, Physician History of Present Illness: doing well no complaints awaiting mri of the foot comfortable - Current Medication List Current Medications: Active Medications Aspirin (Asa -) 81 mg PO DAILY [facility] Last Admin: 05/08/18 09:44 Dose: 81 mg Clopidogrel Bisulfate (Plavix -) 75 mg PO DAILY [facility] Last Admin: 05/08/18 09:43 Dose: 75 mg Collagenase (Santyl -) 1 applic TP DAILY [facility]; Protocol Last Admin: 05/07/18 14:55 Dose: 1 applic Heparin Sodium (Porcine) (Heparin -) 5,000 unit SQ BID [facility] Last Admin: 05/08/18 09:48 Dose: 5,000 unit Piperacillin Sod/Tazobactam (Sod 2.25 gm/ Dextrose) 50 mls @ 100 mls/hr IVPB Q8H-IV [facility]; Protocol Last Admin: 05/08/18 11:06 Dose: 100 mls/hr Sodium Chloride (Normal Saline -) 1,000 mls @ 50 mls/hr IV ASDIR [facility] Stop: 05/08/18 16:02 Last Admin: 05/07/18 23:43 Dose: 50 mls/hr Insulin Aspart (Novolog Vial Sliding Scale -) 1 vial SQ ACHS [facility]; Protocol Last Admin: 05/08/18 11:35 Dose: 7 units Insulin Detemir (Levemir Vial) 40 units SQ AM [facility] Last Admin: 05/08/18 06:46 Dose: 40 units Rosuvastatin Calcium (Crestor -) 40 mg PO HS [facility] Last Admin: 05/07/18 23:44 Dose: 40 mg Tamsulosin HCl (Flomax -) 0.4 mg PO DAILY@0830 [facility] Last Admin: 05/08/18 08:20 Dose: 0.4 mg - Objective Vital Signs: Vital Signs Temperature 97.6 F 05/08/18 09:37 Pulse Rate 70 05/08/18 09:37 Respiratory Rate 18 05/08/18 09:37 Blood Pressure 160/88 05/08/18 09:37 O2 Sat by Pulse Oximetry (%) 97 05/07/18 22:00 Constitutional: Yes: No Distress, Calm Cardiovascular: Yes: Regular Rate and Rhythm Respiratory: Yes: Regular, CTA Bilaterally Gastrointestinal: Yes: Normal Bowel Sounds, Soft Musculoskeletal: Yes: WNL Extremities: Yes: Other Wound/Incision: Yes: Dressing Dry and Intact Neurological: Yes: Alert, Oriented Psychiatric: Yes: Alert, Oriented Labs: CBC, BMP 05/08/18 07:00 05/08/18 07:00 INR, PTT INR 0.99 (0.83-1.09) 05/07/18 11:47 Assessment/Plan Problem List - Problems (1) Foot ulcer due to secondary DM Code(s): E13.621 - OTHER SPECIFIED DIABETES MELLITUS WITH FOOT ULCER; L97.509 - NON-PRESSURE CHRONIC ULCER OTH PRT UNSP FOOT W UNSP SEVERITY (2) FRANKI (acute kidney injury) Code(s): N17.9 - ACUTE KIDNEY FAILURE, UNSPECIFIED (3) BPH (benign prostatic hypertrophy) Code(s): N40.0 - BENIGN PROSTATIC HYPERPLASIA WITHOUT LOWER URINRY TRACT SYMP Qualifiers: Lower urinary tract symptom presence: symptoms present Qualified Code(s): N40.1 - Benign prostatic hyperplasia with lower urinary tract symptoms (4) Diabetes Code(s): E11.9 - TYPE 2 DIABETES MELLITUS WITHOUT COMPLICATIONS 5 r/o osteo of the foot plan continue abx await for mri of the foot rest as per the team once we have the results will decide the final plan
--- NOTE | 2018-05-08 12:45 | EKG ---
Test Reason : Blood Pressure : / mmHG Vent. 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
[2018-05-08] MEDS: COLLAGENASE CLOSTRIDIUM HIST. 30 GRAMS TUBE TP SCH (14:13)
[2018-05-08] MEDS: amLODIPine BESYLATE 10 MG TABLET (FP) PO SCH (14:13)
[2018-05-08] MEDS: LISINOPRIL 5 MG TABLET (FP) PO SCH ×2 (14:13→21:35)
[2018-05-08] MEDS ORDERED: PT OWN MED DRAWER 7, Y5N ONE (20:35)
[2018-05-08] MEDS: ROSUVASTATIN CA 20 MG TABLET (FP) PO SCH (21:35)
[2018-05-09] MEDS ORDERED: PIPERACILLIN/TAZOBACTAM 2.25 GM VIAL IVPB ONE ×3 (00:22→17:06)
[2018-05-09] MEDS ORDERED: DEXTROSE 5%-WATER - 50 ML IVPB ONE ×3 (00:22→17:06)
[2018-05-09] MEDS: PIPERACILLIN/TAZOB 2.25 GM 2.25 GM in DEXTROSE 5%-WATER - 50 ML IVPB SCH ×3 (01:06→17:27)
[2018-05-09] MEDS: INSULIN SLIDING SCALE (NOVOLOG) 1 VIAL SQ SCH ×4 (06:40→22:04)
[2018-05-09] MEDS: INSULIN (LEVEMIR) 100 UNITS/ML UNITS SQ SCH (06:52)
[2018-05-09] MEDS ORDERED: INSULIN (LEVEMIR) 100 UNITS/ML UNITS SQ ONE (06:57)
[2018-05-09] MEDS: LISINOPRIL 5 MG TABLET (FP) PO SCH ×2 (09:01→22:06)
[2018-05-09] MEDS: TAMSULOSIN HCL 0.4 MG CAP PO SCH (09:01)
[2018-05-09] MEDS: ASPIRIN 81 MG CHEWABLE TABLETS PO SCH (09:01)
[2018-05-09] MEDS: CLOPIDOGREL BISULFATE 75 MG TABLET (FP) PO SCH (09:01)
[2018-05-09] MEDS: amLODIPine BESYLATE 10 MG TABLET (FP) PO SCH (09:01)
[2018-05-09] MEDS: HEPARIN NA (PORCINE) 5,000 UNITS/ML 1ML VIAL SQ SCH ×2 (09:02→22:04)
--- NOTE | 2018-05-09 11:17 | PN ---
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: RENAL feels well urinating well Last Vital Signs Temp Pulse Resp BP Pulse Ox 97.7 F 82 18 134/97 98 05/09/18 10:00 05/09/18 10:00 05/09/18 10:00 05/09/18 10:00 05/08/18 09:00 lungs crackles at right base are better cvs s1s2 rr abd soft ext no edema, ulceration noted but he has good DP pulse neuro a+ox3 CBC, BMP 05/08/18 07:00 05/08/18 07:00 Current Medications Generic Name Dose Route Start Last Admin Trade Name Freq PRN Reason Stop Dose Admin Amlodipine Besylate 10 mg 05/08/18 13:15 05/09/18 09:01 Norvasc - PO 10 mg DAILY PRATIK Administration Aspirin 81 mg 05/08/18 10:00 05/09/18 09:01 Asa - PO 81 mg DAILY PRATIK Administration Clopidogrel Bisulfate 75 mg 05/08/18 10:00 05/09/18 09:01 Plavix - PO 75 mg DAILY PRATIK Administration Collagenase 1 applic 05/09/18 10:00 Santyl - TP DAILY PRATIK Protocol Heparin Sodium (Porcine) 5,000 unit 05/07/18 22:00 05/09/18 09:02 Heparin - SQ 5,000 unit BID PRATIK Administration Piperacillin Sod/Tazobactam 50 mls @ 100 mls/hr 05/07/18 18:00 05/09/18 09:01 Sod 2.25 gm/ Dextrose IVPB 100 mls/hr Q8H-IV PRATIK Administration Protocol Insulin Aspart 1 vial 05/07/18 22:00 05/09/18 06:40 Novolog Vial Sliding Scale - SQ 3 units ACHS PRATIK Administration Protocol Insulin Detemir 40 units 05/08/18 07:00 05/09/18 06:52 Levemir Vial SQ 40 units AM PRATIK Administration Lisinopril 5 mg 05/08/18 13:15 05/09/18 09:01 Prinivil PO 5 mg BID PRATIK Administration Rosuvastatin Calcium 40 mg 05/07/18 22:00 05/08/18 21:35 Crestor - PO 40 mg HS PRATIK Administration Tamsulosin HCl 0.4 mg 05/08/18 08:30 05/09/18 09:01 Flomax - PO 0.4 mg DAILY@0830 PRATIK Administration IMPRESSION foot infection does not seem too bad and he has good pulse FRANKI improved with fluids- likely prerenal PLAN obtain ua and protein continue fluids and antibiotics sonogram reviewed repeat labs MV
[2018-05-09] MEDS: COLLAGENASE CLOSTRIDIUM HIST. 30 GRAMS TUBE TP SCH (11:47)
--- NOTE | 2018-05-09 12:32 | PN ---
Progress Note, Physician History of Present Illness: stable doing well mri result noted - Current Medication List Current Medications: Active Medications Amlodipine Besylate (Norvasc -) 10 mg PO DAILY [facility] Last Admin: 05/09/18 09:01 Dose: 10 mg Aspirin (Asa -) 81 mg PO DAILY [facility] Last Admin: 05/09/18 09:01 Dose: 81 mg Clopidogrel Bisulfate (Plavix -) 75 mg PO DAILY [facility] Last Admin: 05/09/18 09:01 Dose: 75 mg Collagenase (Santyl -) 1 applic TP DAILY [facility]; Protocol Last Admin: 05/09/18 11:47 Dose: 1 applic Heparin Sodium (Porcine) (Heparin -) 5,000 unit SQ BID [facility] Last Admin: 05/09/18 09:02 Dose: 5,000 unit Piperacillin Sod/Tazobactam (Sod 2.25 gm/ Dextrose) 50 mls @ 100 mls/hr IVPB Q8H-IV [facility]; Protocol Last Admin: 05/09/18 09:01 Dose: 100 mls/hr Insulin Aspart (Novolog Vial Sliding Scale -) 1 vial SQ ACHS [facility]; Protocol Last Admin: 05/09/18 11:47 Dose: 6 units Insulin Detemir (Levemir Vial) 40 units SQ AM [facility] Last Admin: 05/09/18 06:52 Dose: 40 units Lisinopril (Prinivil) 5 mg PO BID [facility] Last Admin: 05/09/18 09:01 Dose: 5 mg Rosuvastatin Calcium (Crestor -) 40 mg PO HS [facility] Last Admin: 05/08/18 21:35 Dose: 40 mg Tamsulosin HCl (Flomax -) 0.4 mg PO DAILY@0830 [facility] Last Admin: 05/09/18 09:01 Dose: 0.4 mg - Objective Vital Signs: Vital Signs Temperature 97.7 F 05/09/18 10:00 Pulse Rate 82 05/09/18 10:00 Respiratory Rate 18 05/09/18 10:00 Blood Pressure 134/97 05/09/18 10:00 O2 Sat by Pulse Oximetry (%) 98 05/08/18 09:00 Constitutional: Yes: No Distress, Calm Cardiovascular: Yes: Regular Rate and Rhythm Respiratory: Yes: Regular, CTA Bilaterally Gastrointestinal: Yes: Normal Bowel Sounds, Soft Musculoskeletal: Yes: WNL Extremities: Yes: Other Integumentary: Yes: Other Wound/Incision: Yes: Dressing Dry and Intact Neurological: Yes: Alert, Oriented Psychiatric: Yes: Alert, Oriented Labs: CBC, BMP 05/08/18 07:00 05/08/18 07:00 INR, PTT INR 0.99 (0.83-1.09) 05/07/18 11:47 Assessment/Plan Problem List - Problems (1) Foot ulcer due to secondary DM Code(s): E13.621 - OTHER SPECIFIED DIABETES MELLITUS WITH FOOT ULCER; L97.509 - NON-PRESSURE CHRONIC ULCER OTH PRT UNSP FOOT W UNSP SEVERITY (2) FRANKI (acute kidney injury) Code(s): N17.9 - ACUTE KIDNEY FAILURE, UNSPECIFIED (3) BPH (benign prostatic hypertrophy) Code(s): N40.0 - BENIGN PROSTATIC HYPERPLASIA WITHOUT LOWER URINRY TRACT SYMP Qualifiers: Lower urinary tract symptom presence: symptoms present Qualified Code(s): N40.1 - Benign prostatic hyperplasia with lower urinary tract symptoms (4) Diabetes Code(s): E11.9 - TYPE 2 DIABETES MELLITUS WITHOUT COMPLICATIONS 5 r/o osteo of the foot plan continue abx wound care rest as per the team
--- NOTE | 2018-05-09 13:12 | PN ---
Progress Note, Physician - Current Medication List Current Medications: Active Medications Amlodipine Besylate (Norvasc -) 10 mg PO DAILY [facility] Last Admin: 05/09/18 09:01 Dose: 10 mg Aspirin (Asa -) 81 mg PO DAILY [facility] Last Admin: 05/09/18 09:01 Dose: 81 mg Clopidogrel Bisulfate (Plavix -) 75 mg PO DAILY [facility] Last Admin: 05/09/18 09:01 Dose: 75 mg Collagenase (Santyl -) 1 applic TP DAILY [facility]; Protocol Last Admin: 05/09/18 11:47 Dose: 1 applic Heparin Sodium (Porcine) (Heparin -) 5,000 unit SQ BID [facility] Last Admin: 05/09/18 09:02 Dose: 5,000 unit Piperacillin Sod/Tazobactam (Sod 2.25 gm/ Dextrose) 50 mls @ 100 mls/hr IVPB Q8H-IV [facility]; Protocol Last Admin: 05/09/18 09:01 Dose: 100 mls/hr Insulin Aspart (Novolog Vial Sliding Scale -) 1 vial SQ ACHS [facility]; Protocol Last Admin: 05/09/18 11:47 Dose: 6 units Insulin Detemir (Levemir Vial) 40 units SQ AM [facility] Last Admin: 05/09/18 06:52 Dose: 40 units Lisinopril (Prinivil) 5 mg PO BID [facility] Last Admin: 05/09/18 09:01 Dose: 5 mg Rosuvastatin Calcium (Crestor -) 40 mg PO HS [facility] Last Admin: 05/08/18 21:35 Dose: 40 mg Tamsulosin HCl (Flomax -) 0.4 mg PO DAILY@0830 [facility] Last Admin: 05/09/18 09:01 Dose: 0.4 mg - Objective Vital Signs: Vital Signs Temperature 97.7 F 05/09/18 10:00 Pulse Rate 82 05/09/18 10:00 Respiratory Rate 18 05/09/18 10:00 Blood Pressure 134/97 05/09/18 10:00 O2 Sat by Pulse Oximetry (%) 98 05/08/18 09:00 Cardiovascular: Yes: S1, S2 Respiratory: Yes: Regular, CTA Bilaterally Gastrointestinal: Yes: Normal Bowel Sounds, Soft Labs: CBC, BMP 05/08/18 07:00 05/08/18 07:00 INR, PTT INR 0.99 (0.83-1.09) 05/07/18 11:47 Assessment/Plan - Problems (1) Foot ulcer due to secondary DM Assessment/Plan: podiatry and ID iv abx MRI no evidence of osteo--await podiatry and and id Code(s): E13.621 - OTHER SPECIFIED DIABETES MELLITUS WITH FOOT ULCER; L97.509 - NON-PRESSURE CHRONIC ULCER OTH PRT UNSP FOOT W UNSP SEVERITY (2) FRANKI (acute kidney injury) Assessment/Plan: ivf renal consult renal diet renal sono avoid NSAIDs hold ACEI given inc Cr and K Code(s): N17.9 - ACUTE KIDNEY FAILURE, UNSPECIFIED (3) BPH (benign prostatic hypertrophy) Assessment/Plan: flomax bladder sono Code(s): N40.0 - BENIGN PROSTATIC HYPERPLASIA WITHOUT LOWER URINRY TRACT SYMP Qualifiers: Lower urinary tract symptom presence: symptoms present Qualified Code(s): N40.1 - Benign prostatic hyperplasia with lower urinary tract symptoms (4) Diabetes Assessment/Plan: bgm levemir Code(s): E11.9 - TYPE 2 DIABETES MELLITUS WITHOUT COMPLICATIONS
[2018-05-09 15:41] LABS: URINE APPEARANCE CLEAR; URINE BILIRUBIN NEGATIVE (<2.0 mg/dL); URINE COLOR LTYELLOW; URINE GLUCOSE (UA) 2+ (NEGATIVE); URINE KETONE NEGATIVE (NEGATIVE); URINE LEUK ESTERASE TRACE (NEGATIVE); URINE NITRITE NEGATIVE (NEGATIVE); URINE PROTEIN 2+ (NEGATIVE); URINE UROBILINOGEN NEGATIVE mg/dL (0.2-1.0)
[2018-05-09 16:36] LABS: EPI CELLS RARE /HPF (FEW)
[2018-05-09] MEDS ORDERED: PT OWN MED DRAWER 7, Y5N ONE (16:51)
[2018-05-09] MEDS ORDERED: INSULIN (NOVOLOG) ASPART 100 UNITS/ML 10ML VIAL ONE ×2 (17:33→21:50)
[2018-05-09] MEDS ORDERED: ROSUVASTATIN CA 10 MG TABLET (FP) ONE (21:50)
[2018-05-09] MEDS: ROSUVASTATIN CA 20 MG TABLET (FP) PO SCH (22:06)
[2018-05-10] MEDS ORDERED: DEXTROSE 5%-WATER - 50 ML IVPB ONE ×2 (01:54→09:05)
[2018-05-10] MEDS ORDERED: PIPERACILLIN/TAZOBACTAM 2.25 GM VIAL IVPB ONE ×2 (01:54→09:04)
[2018-05-10] MEDS: PIPERACILLIN/TAZOB 2.25 GM 2.25 GM in DEXTROSE 5%-WATER - 50 ML IVPB SCH ×2 (02:09→09:08)
[2018-05-10] MEDS: INSULIN SLIDING SCALE (NOVOLOG) 1 VIAL SQ SCH ×2 (06:22→11:55)
[2018-05-10] MEDS: INSULIN (LEVEMIR) 100 UNITS/ML UNITS SQ SCH (06:25)
[2018-05-10] MEDS ORDERED: INSULIN (NOVOLOG) ASPART 100 UNITS/ML 10ML VIAL ONE ×2 (06:26→11:54)
[2018-05-10 08:20] LABS: ANION GAP 7 MMOL/L (8-16); BLOOD UREA NITROGEN 38 mg/dL (7-18); CALCIUM 8.4 mg/dL (8.5-10.1); CHLORIDE 108 mmol/L (98-107); CO2 24 mmol/L (21-32); CREATININE 1.7 mg/dL (0.55-1.3); GLUCOSE,RANDOM 85 mg/dL (74-106); POTASSIUM 4.5 mmol/L (3.5-5.1); SODIUM 139 mmol/L (136-145)
[2018-05-10] MEDS: LISINOPRIL 5 MG TABLET (FP) PO SCH (09:07)
[2018-05-10] MEDS: HEPARIN NA (PORCINE) 5,000 UNITS/ML 1ML VIAL SQ SCH (09:07)
[2018-05-10] MEDS: amLODIPine BESYLATE 10 MG TABLET (FP) PO SCH (09:07)
[2018-05-10] MEDS: CLOPIDOGREL BISULFATE 75 MG TABLET (FP) PO SCH (09:07)
[2018-05-10] MEDS: ASPIRIN 81 MG CHEWABLE TABLETS PO SCH (09:07)
[2018-05-10] MEDS: TAMSULOSIN HCL 0.4 MG CAP PO SCH (09:07)
[2018-05-10 10:41] VITALS: BP 131/65; PULSE 71; TEMP 98.1
--- NOTE | 2018-05-10 11:19 | PN ---
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: Per Dr. Roy, no vascular intervention planned. Continue daily wound care as ordered. Followed by [facility]. Reconsult Surgery PRN
[2018-05-10] MEDS: COLLAGENASE CLOSTRIDIUM HIST. 30 GRAMS TUBE TP SCH (11:58)
--- NOTE | 2018-05-10 12:25 | PN ---
Problem List - Problems (1) Foot ulcer due to secondary DM Code(s): E13.621 - OTHER SPECIFIED DIABETES MELLITUS WITH FOOT ULCER; L97.509 - NON-PRESSURE CHRONIC ULCER OTH PRT UNSP FOOT W UNSP SEVERITY
--- NOTE | 2018-05-10 12:41 | PN ---
Progress Note, Physician History of Present Illness: patient doing well mri noted no osteo wound healing - Current Medication List Current Medications: Active Medications Amlodipine Besylate (Norvasc -) 10 mg PO DAILY [facility] Last Admin: 05/10/18 09:07 Dose: 10 mg Aspirin (Asa -) 81 mg PO DAILY [facility] Last Admin: 05/10/18 09:07 Dose: 81 mg Clopidogrel Bisulfate (Plavix -) 75 mg PO DAILY [facility] Last Admin: 05/10/18 09:07 Dose: 75 mg Collagenase (Santyl -) 1 applic TP DAILY [facility]; Protocol Last Admin: 05/10/18 11:58 Dose: 1 applic Heparin Sodium (Porcine) (Heparin -) 5,000 unit SQ BID [facility] Last Admin: 05/10/18 09:07 Dose: 5,000 unit Piperacillin Sod/Tazobactam (Sod 2.25 gm/ Dextrose) 50 mls @ 100 mls/hr IVPB Q8H-IV [facility]; Protocol Last Admin: 05/10/18 09:08 Dose: 100 mls/hr Insulin Aspart (Novolog Vial Sliding Scale -) 1 vial SQ ACHS [facility]; Protocol Last Admin: 05/10/18 11:55 Dose: 4 units Insulin Detemir (Levemir Vial) 40 units SQ AM [facility] Last Admin: 05/10/18 06:25 Dose: 40 units Lisinopril (Prinivil) 5 mg PO BID [facility] Last Admin: 05/10/18 09:07 Dose: 5 mg Rosuvastatin Calcium (Crestor -) 40 mg PO HS [facility] Last Admin: 05/09/18 22:06 Dose: 40 mg Tamsulosin HCl (Flomax -) 0.4 mg PO DAILY@0830 [facility] Last Admin: 05/10/18 09:07 Dose: 0.4 mg - Objective Vital Signs: Vital Signs Temperature 98.1 F 05/10/18 10:00 Pulse Rate 71 05/10/18 10:00 Respiratory Rate 20 05/10/18 10:00 Blood Pressure 131/65 05/10/18 10:00 O2 Sat by Pulse Oximetry (%) 96 05/09/18 21:00 Constitutional: Yes: No Distress, Calm Cardiovascular: Yes: Regular Rate and Rhythm Respiratory: Yes: Regular, CTA Bilaterally Gastrointestinal: Yes: Normal Bowel Sounds, Soft Musculoskeletal: Yes: WNL Extremities: Yes: Other Wound/Incision: Yes: Dressing Dry and Intact, Dressing Removed, Other (wound healing) Neurological: Yes: Alert, Oriented Psychiatric: Yes: Alert, Oriented Labs: CBC, BMP 05/08/18 07:00 05/10/18 07:30 INR, PTT INR 0.99 (0.83-1.09) 05/07/18 11:47 Assessment/Plan Problem List - Problems (1) Foot ulcer due to secondary DM Code(s): E13.621 - OTHER SPECIFIED DIABETES MELLITUS WITH FOOT ULCER; L97.509 - NON-PRESSURE CHRONIC ULCER OTH PRT UNSP FOOT W UNSP SEVERITY (2) FRANKI (acute kidney injury) Code(s): N17.9 - ACUTE KIDNEY FAILURE, UNSPECIFIED (3) BPH (benign prostatic hypertrophy) Code(s): N40.0 - BENIGN PROSTATIC HYPERPLASIA WITHOUT LOWER URINRY TRACT SYMP Qualifiers: Lower urinary tract symptom presence: symptoms present Qualified Code(s): N40.1 - Benign prostatic hyperplasia with lower urinary tract symptoms (4) Diabetes Code(s): E11.9 - TYPE 2 DIABETES MELLITUS WITHOUT COMPLICATIONS 5 r/o osteo of the foot plan can switch to orall ampicillin 500 mg every 8 hourly for 2 weeks follow with wound clinic rest as per the team wound care
--- NOTE | 2018-05-10 12:51 | DS ---
Physical Examination Vital Signs: Vital Signs Temperature 98.1 F 05/10/18 10:00 Pulse Rate 71 05/10/18 10:00 Respiratory Rate 20 05/10/18 10:00 Blood Pressure 131/65 05/10/18 10:00 O2 Sat by Pulse Oximetry (%) 96 05/09/18 21:00 Constitutional: Yes: Calm Cardiovascular: Yes: Regular Rate and Rhythm, S1, S2 Respiratory: Yes: CTA Bilaterally Gastrointestinal: Yes: Normal Bowel Sounds, Soft Wound/Incision: Yes: Dressing Dry and Intact (platnar surface wound seen) Labs: CBC, BMP 05/08/18 07:00 05/10/18 07:30 Discharge Summary Reason For Visit: ACUTE KIDNEY INJURY,DIABETIC FOOT INFECTION Current Active Problems FRANKI (acute kidney injury) (Acute) Foot ulcer due to secondary DM (Acute) Hospital Course: This patient is a 68 year old male with PMHx of DM, HTN, HLD, CAD s/p CABG, diabetic foot wound, who was sent to the ED by his director funeral for concern of left foot wound infection. Patient states that he saw his endcrinologist who would like him to be admitted for concern of infection and given IV antibiotics. Patient states that he has had this wound on the the great toe of his left foot for approximately 2 months but states that it became worse yesterday. Patient denies any current fever but states that he was febrile yesterday at his director funeral's office. He denies any current pain at the affected region. 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 Cardiovascular: Yes: CAD, HTN, Hyperlipdemia, OR Gastrointestinal: Yes: GERD Renal/: Yes: Renal Inusuff Endocrine: Yes: Diabetes Mellitus in hospital: got MRI no osteo iv abx changed to po for two weeks seen by podiatry as well Condition: Stable - Instructions Diet, Activity, Other Instructions: follow up at wound care center in one week with dr peña amoxcillin 500mg three times a day for 2 weeks Referrals: Elina King MD [Primary Care Provider] - 2 Weeks Rafa Ocampo DPM [Staff Physician] - 1 Week Disposition: VNS/HOME HEALTH CARE - Home Medications Comprehensive Discharge Medication List: Ambulatory Orders Aspirin [ASA -] 81 mg PO DAILY 07/19/16 Clopidogrel Bisulfate [Plavix -] 75 mg PO DAILY 07/19/16 Rosuvastatin [Crestor -] 40 mg PO DAILY 07/19/16 Tamsulosin HCl [Flomax] 0.4 mg PO HS #7 cap.er.[id number] 06/07/17 Amlodipine Besylate [Norvasc -] 10 mg PO DAILY tablet 12/29/17 Insulin Sliding Scale [Novolog Vial Sliding Scale -] 1 vial SQ TIDAC units Insulin (Levemir) [Levemir Vial] 50 units SQ AM 03/12/18 Lisinopril [Prinivil] 5 mg PO BID 03/12/18 Sulfamethoxazole/Trimethoprim [Bactrim Ds -] 1 tab PO BID #20 tablet 03/29/18
--- NOTE | 2018-05-10 13:25 | PN ---
Progress Note, Physician History of Present Illness: Pt seen and examined at bedside. He is awake and alert. He denies shortness of breath. - Current Medication List Current Medications: Active Medications Amlodipine Besylate (Norvasc -) 10 mg PO DAILY [facility] Last Admin: 05/10/18 09:07 Dose: 10 mg Aspirin (Asa -) 81 mg PO DAILY [facility] Last Admin: 05/10/18 09:07 Dose: 81 mg Clopidogrel Bisulfate (Plavix -) 75 mg PO DAILY [facility] Last Admin: 05/10/18 09:07 Dose: 75 mg Collagenase (Santyl -) 1 applic TP DAILY [facility]; Protocol Last Admin: 05/10/18 11:58 Dose: 1 applic Heparin Sodium (Porcine) (Heparin -) 5,000 unit SQ BID [facility] Last Admin: 05/10/18 09:07 Dose: 5,000 unit Piperacillin Sod/Tazobactam (Sod 2.25 gm/ Dextrose) 50 mls @ 100 mls/hr IVPB Q8H-IV [facility]; Protocol Last Admin: 05/10/18 09:08 Dose: 100 mls/hr Insulin Aspart (Novolog Vial Sliding Scale -) 1 vial SQ ACHS [facility]; Protocol Last Admin: 05/10/18 11:55 Dose: 4 units Insulin Detemir (Levemir Vial) 40 units SQ AM [facility] Last Admin: 05/10/18 06:25 Dose: 40 units Lisinopril (Prinivil) 5 mg PO BID [facility] Last Admin: 05/10/18 09:07 Dose: 5 mg Rosuvastatin Calcium (Crestor -) 40 mg PO HS [facility] Last Admin: 05/09/18 22:06 Dose: 40 mg Tamsulosin HCl (Flomax -) 0.4 mg PO DAILY@0830 [facility] Last Admin: 05/10/18 09:07 Dose: 0.4 mg - Objective Vital Signs: Vital Signs Temperature 98.1 F 05/10/18 10:00 Pulse Rate 71 05/10/18 10:00 Respiratory Rate 20 05/10/18 10:00 Blood Pressure 131/65 05/10/18 10:00 O2 Sat by Pulse Oximetry (%) 96 05/09/18 21:00 Constitutional: Yes: Calm Eyes: Yes: Conjunctiva Clear HENT: Yes: Atraumatic Neck: Yes: Supple Cardiovascular: Yes: S1, S2 Respiratory: Yes: CTA Bilaterally Gastrointestinal: Yes: Normal Bowel Sounds, Soft Genitourinary: Yes: WNL Musculoskeletal: Yes: WNL Edema: No Wound/Incision: Yes: Dressing Dry and Intact Neurological: Yes: Oriented Psychiatric: Yes: Oriented Labs: CBC, BMP 05/08/18 07:00 05/10/18 07:30 INR, PTT INR 0.99 (0.83-1.09) 05/07/18 11:47 Problem List - Problems (1) FRANKI (acute kidney injury) Code(s): N17.9 - ACUTE KIDNEY FAILURE, UNSPECIFIED (2) Foot ulcer due to secondary DM Code(s): E13.621 - OTHER SPECIFIED DIABETES MELLITUS WITH FOOT ULCER; L97.509 - NON-PRESSURE CHRONIC ULCER OTH PRT UNSP FOOT W UNSP SEVERITY (3) Diabetes Code(s): E11.9 - TYPE 2 DIABETES MELLITUS WITHOUT COMPLICATIONS (4) HTN (hypertension) Code(s): I10 - ESSENTIAL (PRIMARY) HYPERTENSION Qualifiers: Hypertension type: essential hypertension Qualified Code(s): I10 - Essential (primary) hypertension (5) Renal insufficiency Code(s): N28.9 - DISORDER OF KIDNEY AND URETER, UNSPECIFIED Assessment/Plan Current Medications Generic Name Dose Route Start Last Admin Trade Name Freq PRN Reason Stop Dose Admin Amlodipine Besylate 10 mg 05/08/18 13:15 05/10/18 09:07 Norvasc - PO 10 mg DAILY [facility] Administration Aspirin 81 mg 05/08/18 10:00 05/10/18 09:07 Asa - PO 81 mg DAILY [facility] Administration Clopidogrel Bisulfate 75 mg 05/08/18 10:00 05/10/18 09:07 Plavix - PO 75 mg DAILY [facility] Administration Collagenase 1 applic 05/09/18 10:00 05/10/18 11:58 Santyl - TP 1 applic DAILY [facility] Administration Protocol Heparin Sodium (Porcine) 5,000 unit 05/07/18 22:00 05/10/18 09:07 Heparin - SQ 5,000 unit BID [facility] Administration Piperacillin Sod/Tazobactam 50 mls @ 100 mls/hr 05/07/18 18:00 05/10/18 09:08 Sod 2.25 gm/ Dextrose IVPB 100 mls/hr Q8H-IV [facility] Administration Protocol Insulin Aspart 1 vial 05/07/18 22:00 05/10/18 11:55 Novolog Vial Sliding Scale - SQ 4 units ACHS [facility] Administration Protocol Insulin Detemir 40 units 05/08/18 07:00 05/10/18 06:25 Levemir Vial SQ 40 units AM [facility] Administration Lisinopril 5 mg 05/08/18 13:15 05/10/18 09:07 Prinivil PO 5 mg BID [facility] Administration Rosuvastatin Calcium 40 mg 05/07/18 22:00 05/09/18 22:06 Crestor - PO 40 mg HS [facility] Administration Tamsulosin HCl 0.4 mg 05/08/18 08:30 05/10/18 09:07 Flomax - PO 0.4 mg DAILY@0830 [facility] Administration Impression 1. CKD 2. DM 3. HTN 4. DFU 5. HLD 6. BPH 7. osteo 8. proteinuria 9. FRANKI 10. hyperkalemia Plan - renal function stable - potassium improved - will need outpt follow up - avoid nsaids - cont with mal - discussed low potassium diet - will follow Dr Porter
== END 2018-05-10 14:53 | disposition home health service (06) | DRG 638 ==
LOC: JER 10:57 → JERBED 13:10 → J5S 20:59 → J6S 05-09 18:30
PROVIDERS: ADMIT Family Medicine; ATTEND Family Medicine
DX: E11.621 Type 2 diabetes mellitus with foot ulcer (principal); I13.0 Hypertensive heart and chronic kidney disease with heart failure and stage 1 through stage 4 chronic kidney disease, or unspecified chronic kidney disease; L97.529 Non-pressure chronic ulcer of other part of left foot with unspecified severity; N17.9 Acute kidney failure, unspecified; I25.10 Atherosclerotic heart disease of native coronary artery without angina pectoris; Z95.1 Presence of aortocoronary bypass graft; E78.5 Hyperlipidemia, unspecified; Z79.4 Long term (current) use of insulin; N40.0 Benign prostatic hyperplasia without lower urinary tract symptoms; E11.22 Type 2 diabetes mellitus with diabetic chronic kidney disease; N18.9 Chronic kidney disease, unspecified; E87.5 Hyperkalemia; I50.9 Heart failure, unspecified; E11.40 Type 2 diabetes mellitus with diabetic neuropathy, unspecified; E11.65 Type 2 diabetes mellitus with hyperglycemia
CPT/HCPCS: 36415; 71045-TC-FY; 73630-TC-LT; 73718-LT; 76775-TC; 80048; 80053; 81003; 81015; 82436; 82570; 82962; 83036; 83735; 84100; 84133; 84300; 85025; 85610; 85651; 86140; 86850; 86900; 86901; 87040; 93005; 93010; 99283-25; J1644; J7030

== ENCOUNTER 2018-10-26 15:53 | Inpatient (IN) | payer OTHER ==
--- NOTE | 2018-10-26 16:04 | PDOC ---
Rapid Medical Evaluation Chief Complaint: Wound Time Seen by Provider: 10/26/18 16:01 Medical Evaluation: Allergies Allergy/AdvReac Type Severity Reaction Status Date / Time No Known Allergies Allergy Verified 05/07/18 11:08 10/26/18 16:02 I did a brief in person evaluation on this patient. CC: Infection in right great toe HPI: Pt is a 68 YO male who has a hx of DM who complains of an infection in the right great toe x 7 months. Pt is febrile. PE: Skin: Unable to be evaluated due to dressing at triaged Lungs: Clear Heart:RRR MS: Moves all extremities without difficulty Neuro: alert Psych: appropriate affect. I have ordered: basic labs with BC Pt will proceed to main ED for further evaluation. Discharge Disposition - Diagnosis Wound cellulitis - Referrals - Patient Instructions - Post Discharge Activity
[2018-10-26 16:36] LABS: BASO % 0.9 % (0-2.0); EOS % 0.3 % (0-4.5); HEMOGLOBIN 12.5 GM/dL (11.7-16.9); LYMPH % 2.9 % (8-40); MCH 27.9 pg (25.7-33.7); MCHC 32.9 g/dl (32.0-35.9); MEAN CELL VOLUME 84.9 fl (80-96); MEAN PLT VOLUME 9.7 fl (7.5-11.1); MONO % 4.5 % (3.8-10.2); NEUT % 91.4 % (42.8-82.8); PLATELET COUNT 222 K/MM3 (134-434); RBC 4.47 M/mm3 (4.00-5.60); RDW 15.3 % (11.9-15.9); WHITE BLOOD COUNT 14.9 K/mm3 (4.0-10.0)
[2018-10-26 17:01] LABS: ALK PHOS 87 U/L (45-117); ANION GAP 9 MMOL/L (8-16); BILIRUBIN,TOTAL 0.3 mg/dL (0.2-1); BLOOD UREA NITROGEN 48 mg/dL (7-18); CALCIUM 8.8 mg/dL (8.5-10.1); CHLORIDE 100 mmol/L (98-107); CO2 23 mmol/L (21-32); CREATININE 1.8 mg/dL (0.55-1.3); GLUCOSE,RANDOM 190 mg/dL (74-106); POTASSIUM 4.3 mmol/L (3.5-5.1); SGOT/AST 28 U/L (15-37); SGPT/ALT 42 U/L (13-61); SODIUM 132 mmol/L (136-145); TOT PROT 7.9 g/dl (6.4-8.2)
[2018-10-26] MEDS ORDERED: VANCOMYCIN 1,000 MG in DEXTROSE 5%-WATER - 250 ML IVPB ONE (18:14)
[2018-10-26] MEDS ORDERED: PIPERACILLIN/TAZOB 3.375 GM 3.375 GM in DEXTROSE 5%-WATER - 50 ML IVPB ONE (18:14)
--- NOTE | 2018-10-26 18:14 | PDOC ---
History of Present Illness - General Chief Complaint: Wound Stated Complaint: BLEEDING LF FOOT Time Seen by Provider: 10/26/18 16:01 History Source: Patient Exam Limitations: No Limitations Past History - Travel Traveled outside of the country in the last 30 days: No Close contact w/someone who was outside of country & ill: No - Past Medical History Allergies/Adverse Reactions: Allergies Allergy/AdvReac Type Severity Reaction Status Date / Time No Known Allergies Allergy Verified 05/07/18 11:08 Home Medications: Ambulatory Orders Aspirin [ASA -] 81 mg PO DAILY 07/19/16 Clopidogrel Bisulfate [Plavix -] 75 mg PO DAILY 07/19/16 Rosuvastatin [Crestor -] 40 mg PO DAILY 07/19/16 Tamsulosin HCl [Flomax] 0.4 mg PO HS #7 cap.er.24h 06/07/17 Amlodipine Besylate [Norvasc -] 10 mg PO DAILY tablet 12/29/17 Insulin Sliding Scale [Novolog Vial Sliding Scale -] 1 vial SQ TIDAC units Insulin (Levemir) [Levemir Vial] 50 units SQ AM 03/12/18 Lisinopril [Prinivil] 5 mg PO BID 03/12/18 Amoxicillin - [Amoxicillin 500mg Capsule -] 500 mg PO TID 14 Days #60 capsule MDD 3 05/10/18 Collagenase Clostridium Hist. [Santyl -] 1 applic TP DAILY #1 tube 05/10/18 Anemia: No Asthma: No Cancer: No Cardiac Disorders: Yes (s/p CABG) CVA: No COPD: No CHF: No Dementia: No Diabetes: Yes GI Disorders: Yes (GERD) Disorders: Yes (Renal insuffiency) HTN: Yes Hypercholesterolemia: Yes Liver Disease: No Seizures: No Thyroid Disease: No - Surgical History Abdominal Surgery: No Appendectomy: No Cardiac Surgery: Yes (STENTS, BYPASS) Cholecystectomy: No Lung Surgery: No Neurologic Surgery: No Orthopedic Surgery: No - Immunization History Immunization Up to Date: Yes - Suicide/Smoking/Psychosocial Hx Smoking History: Unknown if ever smoked Have you smoked in the past 12 months: No If you are a former smoker, when did you quit?: 1979 Hx Alcohol Use: No Drug/Substance Use Hx: No Substance Use Type: None Hx Substance Use Treatment: No Review of Systems - Review of Systems Able to Perform ROS?: Yes Comments:: 10/26/18 18:33 CONSTITUTIONAL: Present: fever Absent: fever, chills, diaphoresis, generalized weakness, malaise , loss of appetite HEENT: Absent: rhinorrhea, nasal congestion, throat pain, throat swelling, difficulty swallowing, mouth swelling, ear pain, eye pain, visual Changes CARDIOVASCULAR: Absent: chest pain, loss of consciousness, palpitations, irregular heart rate, peripheral edema RESPIRATORY: Absent: cough, shortness of breath, dyspnea with exertion, orthopnea, wheezing, stridor, hemoptysis GASTROINTESTINAL: Absent: abdominal pain, abdominal distension, nausea, vomiting, diarrhea, constipation, melena, hematochezia GENITOURINARY: Absent: dysuria, frequency, urgency, hesitancy, hematuria, flank pain, genital pain MUSCULOSKELETAL: Absent: myalgia, arthralgia, joint swelling SKIN: Present: R toe infection with drainage Absent: rash, itching, pallor HEMATOLOGIC/IMMUNOLOGIC: Absent: easy bleeding, easy bruising, lymphadenopathy, frequent infections ENDOCRINE: Absent: unexplained weight gain, unexplained weight loss, heat intolerance, cold intolerance NEUROLOGIC: Absent: headache, focal weakness or paresthesias, dizziness, unsteady gait, seizure, mental status changes, bladder or bowel incontinence PSYCHIATRIC: Absent: anxiety, depression, suicidal or homicidal ideation, hallucinations. Is the patient limited Thai proficient: No *Physical Exam - Vital Signs Last Vital Signs Temp Pulse Resp BP Pulse Ox 100.1 F H 96 H 18 215/99 H 97 10/26/18 16:00 10/26/18 16:00 10/26/18 16:00 10/26/18 16:00 10/26/18 16:00 - Physical Exam Comments: 10/26/18 18:37 GENERAL: Well developed, well nourished. Awake and alert. No acute distress. HEENT: Normocephalic, atraumatic. PERRLA, EOMI. No conjunctival pallor. Sclera are non- icteric. Moist mucous membranes. Oropharynx is clear. NECK: Supple. Full ROM. No JVD. Carotid pulses 2+ and symmetric, without bruits. No thyromegaly. No lymphadenopathy. CARDIOVASCULAR: Regular rate and rhythm. No murmurs, rubs, or gallops. Distal pulses are 2+ and symmetric. PULMONARY: No evidence of respiratory distress. Lungs clear to auscultation bilaterally. No wheezing, rales or rhonchi. ABDOMINAL: Soft. Non-tender. Non-distended. No rebound or guarding. No organomegaly. Normoactive bowel sounds. MUSCULOSKELETAL Normal range of motion at all joints. No bony deformities or tenderness. No CVA tenderness. EXTREMITIES: No cyanosis. No clubbing. No edema. No calf tenderness. SKIN: R 1st toe is with stage 2 pressure ulcer approximately 1.5cm round with surrounding cellulitis and possible gangrene. L 1st toe with large escar over the medial aspect of the toe. Warm and dry. Normal capillary refill. No rashes. No jaundice. NEUROLOGICAL: Alert, awake, appropriate. Cranial nerves 2-12 intact. No deficits to light touch and temperature in face, upper extremities and lower extremities. No motor deficits in the in face, upper extremities and lower extremities. Normoreflexic in the upper and lower extremities. Normal speech. Toes are down- going bilaterally. Gait is normal without ataxia. PSYCHIATRIC: Cooperative. Good eye contact. Appropriate mood and affect. ED Treatment Course - LABORATORY CBC & Chemistry Diagram: 10/27/18 05:30 10/27/18 05:30 - ADDITIONAL ORDERS Additional order review: Laboratory Results 10/26/18 10/26/18 16:16 16:16 Sodium 132 L Potassium 4.3 Chloride 100 Carbon Dioxide 23 Anion Gap 9 BUN 48 H Creatinine 1.8 H Creat Clearance w eGFR 37.82 Random Glucose 190 H Lactic Acid 1.3 Calcium 8.8 Total Bilirubin 0.3 AST 28 ALT 42 Alkaline Phosphatase 87 Total Protein 7.9 Albumin 3.0 L 10/26/18 16:15 RBC 4.47 MCV 84.9 MCHC 32.9 RDW 15.3 MPV 9.7 Neutrophils % 91.4 H D Lymphocytes % 2.9 L D Monocytes % 4.5 Eosinophils % 0.3 D Basophils % 0.9 Medical Decision Making - Medical Decision Making 10/26/18 18:40 Patient is a 68-year-old male with past medical history of insulin-dependent diabetes, hypertension, chronic foot ulcers who presents to the ER today for infected foot ulcers and fever. He states that the ulcers got worse over the past 2 days. He noticed chills today. He states that the right foot is draining and that it hurts to walk. He has not been to wound care and "a long time." He states that he also had nausea and vomiting this morning. He believes that he threw up his hypertensive medications. Denies chills, short of breath, chest pain, abdominal pain, frequency, urgency and hematuria. A/P: Infected foot ulcers. On exam patient with 1.5 cm round draining infection to the right medial first toe with surrounding cellulitis and possible gangrene. Basic labs obtained from [facility] show a leukocytosis of 14.5. Boardline febrile at 100.3F Blood cultures were drawn. Empiric antibiotics ordered at this time. Labatolol given for triage BP of 215/99 Patient pending foot x-ray, chest x-ray, EKG and hypertensive medications. Triage blood pressure was notable for a pressure of 215/99. Denies headaches. Sign out given to MELISSA Owen. Patient to be admitted once EKG and x-rays finished. PCP: Dr. Dumas *DC/Admit/Observation/Transfer Diagnosis at time of Disposition: Wound cellulitis, HTN (hypertension), Diabetes mellitus, insulin dependent ( IDDM), uncontrolled - Referrals - Patient Instructions - Post Discharge Activity
[2018-10-26] MEDS ORDERED: LABETALOL HCL 5 MG/1 ML (100MG/20 ML VIAL) IVPUSH ONE (18:15)
[2018-10-26] MEDS ORDERED: ACETAMINOPHEN 1000 MG/100 ML VIAL (NON FORMULARY) IVPB ONE (18:21)
[2018-10-26 18:23] LABS: PLATELET ESTIMATE ADEQUATE
[2018-10-26] MEDS ORDERED: PIPERACILLIN/TAZOB 3.375 GM 3.375 GM/50 ML BAG IVPB ONE (18:30)
[2018-10-26] MEDS ORDERED: VANCOMYCIN 1 GRAM (PRE-DOCKED) 1,000 MG/250 ML BAG IVPB ONE (18:30)
[2018-10-26] MEDS ORDERED: LABETALOL HCL 5 MG/1 ML (200MG/40ML VIAL) IVPB ONE (18:30)
--- NOTE | 2018-10-26 20:01 | PDOC ---
*Physical Exam - Vital Signs Last Vital Signs Temp Pulse Resp BP Pulse Ox 100.1 F H 88 18 148/65 94 L 10/26/18 16:00 10/26/18 18:46 10/26/18 16:00 10/26/18 18:46 10/26/18 18:46 ED Treatment Course - LABORATORY CBC & Chemistry Diagram: 10/26/18 16:15 10/26/18 16:16 - ADDITIONAL ORDERS Additional order review: Laboratory Results 10/26/18 10/26/18 16:16 16:16 Sodium 132 L Potassium 4.3 Chloride 100 Carbon Dioxide 23 Anion Gap 9 BUN 48 H Creatinine 1.8 H Creat Clearance w eGFR 37.82 Random Glucose 190 H Lactic Acid 1.3 Calcium 8.8 Total Bilirubin 0.3 AST 28 ALT 42 Alkaline Phosphatase 87 Total Protein 7.9 Albumin 3.0 L 10/26/18 16:15 RBC 4.47 MCV 84.9 MCHC 32.9 RDW 15.3 MPV 9.7 Neutrophils % 91.4 H D Lymphocytes % 2.9 L D Monocytes % 4.5 Eosinophils % 0.3 D Basophils % 0.9 - Medications Given in the ED: ED Medications Discontinued Medications Generic Name Dose Route Start Last Admin Trade Name Freq PRN Reason Stop Dose Admin Piperacillin Sod/Tazobactam 50 mls @ 100 mls/hr 10/26/18 18:14 10/26/18 18:45 Sod 3.375 gm/ Dextrose IVPB 10/26/18 18:43 100 mls/hr ONCE ONE Administration Protocol Labetalol HCl 10 mg 10/26/18 18:15 10/26/18 18:45 Normodyne Injection - IVPUSH 10/26/18 18:16 10 mg ONCE ONE Administration Medical Decision Making - Medical Decision Making 10/26/18 20:23 patient to be admitted by Dr. araya *DC/Admit/Observation/Transfer Diagnosis at time of Disposition: Wound cellulitis HTN (hypertension) Qualifiers: Hypertension type: unspecified Qualified Code(s): I10 - Essential (primary) hypertension Diabetes mellitus, insulin dependent (IDDM), uncontrolled Qualifiers: Glycemic state: with hyperglycemia Qualified Code(s): E10.65 - Type 1 diabetes mellitus with hyperglycemia - Discharge Dispostion Decision to Admit order: Yes - Referrals - Patient Instructions - Post Discharge Activity
--- NOTE | 2018-10-26 20:46 | HP ---
CHIEF COMPLAINT: Right great toe infection PCP: Piter HISTORY OF PRESENT ILLNESS: 68-year-old man with uncontrolled DM for at leat 15 years , neohropathy, retinopathy?, c/o right hallux pain and bloody discharge, fevers, chills for the past 2 days. He was urged by his friend to come to hospital to seek medical attention. S/p vancomycin and zosyn in ER. ER course was notable for: (1) zosyn (2) vancomycin (3) Recent Travel:no PAST MEDICAL HISTORY: uncontrolled IDDM, CAD s/p CABG, hypertension, CKD PAST SURGICAL HISTORY: Social History: Smoking:former smoker- quit 30 years ago Alcohol:no Drugs: no Family History: sister - DM Allergies No Known Allergies Allergy (Verified 05/07/18 11:08) HOME MEDICATIONS: Home Medications Medication Instructions Recorded Aspirin [ASA -] 81 mg PO DAILY 07/19/16 Clopidogrel Bisulfate [Plavix -] 75 mg PO DAILY 07/19/16 Rosuvastatin [Crestor -] 40 mg PO DAILY 07/19/16 Tamsulosin HCl [Flomax] 0.4 mg PO HS #7 cap.er.24h 06/07/17 Amlodipine Besylate [Norvasc -] 10 mg PO DAILY tablet 12/29/17 Insulin Sliding Scale [Novolog 1 vial SQ TIDAC units 12/29/17 Vial Sliding Scale -] Insulin (Levemir) [Levemir Vial] 50 units SQ AM 03/12/18 Lisinopril [Prinivil] 5 mg PO BID 03/12/18 Amoxicillin - [Amoxicillin 500mg 500 mg PO TID 14 Days #60 capsule 05/10/18 Capsule -] MDD 3 Collagenase Clostridium Hist. 1 applic TP DAILY #1 tube 05/10/18 [Santyl -] REVIEW OF SYSTEMS CONSTITUTIONAL: Absent: diaphoresis, generalized weakness, malaise, loss of appetite, weight change present- fever, chills, HEENT: Absent: rhinorrhea, nasal congestion, throat pain, throat swelling, difficulty swallowing, mouth swelling, ear pain, eye pain, visual changes CARDIOVASCULAR: Absent: chest pain, syncope, palpitations, irregular heart rate, lightheadedness , peripheral edema RESPIRATORY: Absent: cough, shortness of breath, dyspnea with exertion, orthopnea, wheezing, stridor, hemoptysis GASTROINTESTINAL: Absent: abdominal pain, abdominal distension, nausea, vomiting, diarrhea, constipation, melena, hematochezia GENITOURINARY: Absent: dysuria, frequency, urgency, hesitancy, hematuria, flank pain, genital pain MUSCULOSKELETAL: Absent: joint swelling, back pain, neck pain present- myalgia, arthralgia, SKIN: Absent: rash, itching, pallor HEMATOLOGIC/IMMUNOLOGIC: Absent: easy bleeding, easy bruising, lymphadenopathy, frequent infections ENDOCRINE: Absent: unexplained weight gain, unexplained weight loss, heat intolerance, cold intolerance NEUROLOGIC: Absent: headache, focal weakness or paresthesias, dizziness, unsteady gait, seizure, mental status changes, bladder or bowel incontinence PSYCHIATRIC: Absent: anxiety, depression, suicidal or homicidal ideation, hallucinations. PHYSICAL EXAMINATION Vital Signs - 24 hr 10/26/18 10/26/18 16:00 18:46 Temperature 100.1 F H Pulse Rate 96 H Pulse Rate [ 88 Left Radial] Respiratory 18 Rate Blood Pressure 215/99 H Blood Pressure 148/65 [Left Arm] O2 Sat by Pulse 97 94 L Oximetry (%) GENERAL: Awake, alert, and fully oriented, in no acute distress. HEAD: Normal with no signs of trauma. EYES: Pupils equal, round and reactive to light, extraocular movements intact, sclera anicteric, conjunctiva clear. No lid lag. EARS, NOSE, THROAT: Ears normal, nares patent, oropharynx clear without exudates. Moist mucous membranes. NECK: Normal range of motion, supple without lymphadenopathy, JVD, or masses. LUNGS: Breath sounds equal, clear to auscultation bilaterally. No wheezes, and no crackles. No accessory muscle use. HEART: Regular rate and rhythm, normal S1 and S2 without murmur, rub or gallop. ABDOMEN: Soft, nontender, not distended, normoactive bowel sounds, no guarding, no rebound, no masses. No hepatomegaly or splenomegaly. MUSCULOSKELETAL: Normal range of motion at all joints. No bony deformities or tenderness. No CVA tenderness. UPPER EXTREMITIES: 2+ pulses, warm, well-perfused. No cyanosis. No clubbing. No peripheral edema. LOWER EXTREMITIES: right hallux ulcer about 2cm x 2cm, some dried bloody discharge noted, foul smelling, skin around site is erythematous NEUROLOGICAL: Cranial nerves II-XII intact. Normal speech. Normal gait. PSYCHIATRIC: Cooperative. Good eye contact. Appropriate mood and affect. SKIN: Warm, dry, normal turgor, no rashes or lesions noted, normal capillary refill. Laboratory Results - last 24 hr 10/26/18 10/26/18 10/26/18 16:15 16:16 16:16 WBC 14.9 H RBC 4.47 Hgb 12.5 Hct 38.0 MCV 84.9 MCH 27.9 MCHC 32.9 RDW 15.3 Plt Count 222 D MPV 9.7 Absolute Neuts (auto) 13.6 H Total Counted 100 Neutrophils % 91.4 H D Neutrophils % (Manual) 89.0 H Band Neutrophils % 1.0 Lymphocytes % 2.9 L D Lymphocytes % (Manual) 3.0 L Monocytes % 4.5 Monocytes % (Manual) 6 Eosinophils % 0.3 D Eosinophils % (Manual) 1.0 Basophils % 0.9 Nucleated RBC % 0 Differential Comment Man diff performed Platelet Estimate Adequate Platelet Comment Sodium 132 L Potassium 4.3 Chloride 100 Carbon Dioxide 23 Anion Gap 9 BUN 48 H Creatinine 1.8 H Creat Clearance w eGFR 37.82 Random Glucose 190 H Lactic Acid 1.3 Calcium 8.8 Total Bilirubin 0.3 AST 28 ALT 42 Alkaline Phosphatase 87 Total Protein 7.9 Albumin 3.0 L ASSESSMENT/PLAN: #Infected right hallux in diabetic foot. Hallux appears erythematous, tender to touch, with some seeping discharge. -admit to med/surg -blood cultures x2 -esr, crp -local wound care -right foot xray -zosyn -vancomcyin -podiatry evaluation- bone biopsy -ID evaluation for antibiotics -endocrine eval for uncontrolled DM -patient refused MRI at this time -bed rest -fall precations -ekg #CKD - likely diabetic nephropathy #Uncontrolled DM -levemir 50 units qhs -novolog sliding scale -a1c -statin -ASA -lisinopril -diabetic diet #CAD - s/p CABG -ASA -statin #DVT -heparin sc Visit type - Emergency Visit Emergency Visit: Yes ED Registration Date: 10/26/18 Care time: The patient presented to the Emergency Department on the above date and was hospitalized for further evaluation of their emergent condition. - New Patient This patient is new to me today: Yes Date on this admission: 10/26/18 - Critical Care Critical Care patient: No
[2018-10-26] MEDS ORDERED: ACETAMINOPHEN INJECTION 100 ML IVPB ONE (21:15)
[2018-10-26] MEDS ORDERED: INSULIN (LEVEMIR) 100 UNITS/ML UNITS SQ SCH (22:00)
[2018-10-26] MEDS: INSULIN SLIDING SCALE (NOVOLOG) 1 VIAL SQ SCH (22:57)
[2018-10-26] MEDS ORDERED: LISINOPRIL 5 MG TABLET (FP) ONE (23:09)
[2018-10-26] MEDS ORDERED: TAMSULOSIN HCL 0.4 MG CAP ONE (23:09)
[2018-10-26] MEDS ORDERED: HEPARIN NA (PORCINE) 5,000 UNITS/ML 1ML VIAL ONE (23:10)
[2018-10-26] MEDS: HEPARIN NA (PORCINE) 5,000 UNITS/ML 1ML VIAL SQ SCH (23:14)
[2018-10-26] MEDS: LISINOPRIL 5 MG TABLET (FP) PO SCH (23:14)
[2018-10-26] MEDS: TAMSULOSIN HCL 0.4 MG CAP PO SCH (23:14)
[2018-10-27] MEDS ORDERED: PIPERACILLIN/TAZOB 2.25 GM 2.25 GM in DEXTROSE 5%-WATER - 50 ML IVPB ONE (01:00)
[2018-10-27 01:43] VITALS: BMI 23.2
[2018-10-27] MEDS ORDERED: PIPERACILLIN/TAZOBACTAM 2.25 GM VIAL IVPB ONE ×3 (01:45→21:38)
[2018-10-27] MEDS ORDERED: DEXTROSE 5%-WATER - 50 ML IVPB ONE ×3 (01:45→21:38)
[2018-10-27] MEDS: INSULIN SLIDING SCALE (NOVOLOG) 1 VIAL SQ SCH ×4 (06:03→23:00)
[2018-10-27] MEDS: INSULIN (LEVEMIR) 100 UNITS/ML UNITS SQ SCH (06:03)
[2018-10-27 06:43] LABS: ANION GAP 10 MMOL/L (8-16); BLOOD UREA NITROGEN 53 mg/dL (7-18); CALCIUM 8.2 mg/dL (8.5-10.1); CHLORIDE 100 mmol/L (98-107); CO2 23 mmol/L (21-32); CREATININE 2.3 mg/dL (0.55-1.3); POTASSIUM 3.9 mmol/L (3.5-5.1); SODIUM 133 mmol/L (136-145)
[2018-10-27 06:44] LABS: GLUCOSE,RANDOM 327 mg/dL (74-106)
[2018-10-27 07:08] LABS: HEMATOCRIT 32.6 % (35.4-49); HEMOGLOBIN 10.7 GM/dL (11.7-16.9); MCH 27.8 pg (25.7-33.7); MEAN CELL VOLUME 84.3 fl (80-96); MEAN PLT VOLUME 9.9 fl (7.5-11.1); PLATELET COUNT 181 K/MM3 (134-434); RBC 3.87 M/mm3 (4.00-5.60); RDW 15.8 % (11.9-15.9); WHITE BLOOD COUNT 11.5 K/mm3 (4.0-10.0)
[2018-10-27] MEDS: LISINOPRIL 5 MG TABLET (FP) PO SCH ×2 (09:11→22:32)
[2018-10-27] MEDS: ASPIRIN 81 MG CHEWABLE TABLETS PO SCH (09:11)
[2018-10-27] MEDS: amLODIPine BESYLATE 10 MG TABLET (FP) PO SCH (09:12)
[2018-10-27] MEDS: CLOPIDOGREL BISULFATE 75 MG TABLET (FP) PO SCH (09:12)
[2018-10-27] MEDS: HEPARIN NA (PORCINE) 5,000 UNITS/ML 1ML VIAL SQ SCH ×2 (09:12→22:32)
--- NOTE | 2018-10-27 10:31 | EKG ---
Test Reason : Blood Pressure : / mmHG Vent. Rate : 081 BPM Atrial Rate : 081 BPM P-R Int : 144 ms QRS Dur : 086 ms QT Int : 380 ms P-R-T Axes : 009 -07 068 degrees QTc Int : 441 ms NORMAL SINUS RHYTHM VOLTAGE CRITERIA FOR LEFT VENTRICULAR HYPERTROPHY INFERIOR INFARCT (CITED ON OR BEFORE 19-JUL-2014) CANNOT RULE OUT ANTERIOR INFARCT , AGE UNDETERMINED ABNORMAL ECG WHEN COMPARED WITH ECG OF 07-MAY-2018 11:58, MINIMAL CRITERIA FOR ANTERIOR INFARCT ARE NOW PRESENT Confirmed by JOHNSON CHAVEZ, ROCKY ([id number]) on 10/27/2018 10:31:10 AM Referred By: Confirmed By:ROCKY ORNELAS MD
--- NOTE | 2018-10-27 11:19 | PN ---
Progress Note, Physician Chief Complaint: Diabetic foot ulcer History of Present Illness: NAD self ambulatory Uncontrolled diabetic denies pain - Current Medication List Current Medications: Active Medications Amlodipine Besylate (Norvasc -) 10 mg PO DAILY [facility] Last Admin: 10/27/18 09:12 Dose: 10 mg Aspirin (Asa -) 81 mg PO DAILY [facility] Last Admin: 10/27/18 09:11 Dose: 81 mg Clopidogrel Bisulfate (Plavix -) 75 mg PO DAILY [facility] Last Admin: 10/27/18 09:12 Dose: 75 mg Heparin Sodium (Porcine) (Heparin -) 5,000 unit SQ BID [facility] Last Admin: 10/27/18 09:12 Dose: 5,000 unit Insulin Aspart (Novolog Vial Sliding Scale -) 1 vial SQ [facility]; Protocol Last Admin: 10/27/18 06:03 Dose: 8 units Insulin Detemir (Levemir Vial) 50 units SQ DAILY@0700 [facility] Last Admin: 10/27/18 06:03 Dose: 50 units Lisinopril (Prinivil) 5 mg PO BID [facility] Last Admin: 10/27/18 09:11 Dose: 5 mg Rosuvastatin Calcium (Crestor -) 40 mg PO [facility] Tamsulosin HCl (Flomax -) 0.4 mg PO [facility] Last Admin: 10/26/18 23:14 Dose: 0.4 mg - Objective Vital Signs: Vital Signs Temperature 98 F 10/27/18 05:51 Pulse Rate 71 10/27/18 05:51 Respiratory Rate 20 10/27/18 05:51 Blood Pressure 123/64 10/27/18 05:51 O2 Sat by Pulse Oximetry (%) 98 10/27/18 01:30 Constitutional: Yes: Well Nourished, No Distress, Calm Cardiovascular: Yes: Regular Rate and Rhythm Respiratory: Yes: Regular Gastrointestinal: Yes: Normal Bowel Sounds, Soft Genitourinary: Yes: WNL Musculoskeletal: Yes: Other (right foot pain) Extremities: Yes: WNL Edema: No Peripheral Pulses WNL: Yes Wound/Incision: Yes: Dressing Dry and Intact Neurological: Yes: Alert, Oriented Psychiatric: Yes: Alert, Oriented Labs: CBC, BMP 10/27/18 05:30 10/27/18 05:30 Problem List - Problems (1) Diabetes mellitus, insulin dependent (IDDM), uncontrolled Assessment/Plan: -BGM AC HS -Insulin: novolog sliding scale and Levemir 50 U QAM -A1c at 9.3 -Diabetic low sodium diet -Endocrinology consult -RD consult Code(s): E10.65 - TYPE 1 DIABETES MELLITUS WITH HYPERGLYCEMIA Qualifiers: Glycemic state: with hyperglycemia Qualified Code(s): E10.65 - Type 1 diabetes mellitus with hyperglycemia (2) HTN (hypertension) Assessment/Plan: -Continue amlodipine and lisinopril Code(s): I10 - ESSENTIAL (PRIMARY) HYPERTENSION Qualifiers: Hypertension type: unspecified Qualified Code(s): I10 - Essential (primary ) hypertension (3) FRANKI (acute kidney injury) Assessment/Plan: -Monitor Cr -Nephrology consult Code(s): N17.9 - ACUTE KIDNEY FAILURE, UNSPECIFIED (4) CAD (coronary artery disease) Assessment/Plan: -On asa, statin, plavix Code(s): I25.10 - ATHSCL HEART DISEASE OF [place] CORONARY ARTERY W/O ANG PCTRS (5) Foot ulcer due to secondary DM Assessment/Plan: -Podiatry and ID consult -Received IV zosyn and vanco in ER -Continue IV abx as per ID -afebrile now -Leukocytosis improving -ESR/CRP elevated -MRI foot to r/o osteomyelitis Code(s): E13.621 - OTHER SPECIFIED DIABETES MELLITUS WITH FOOT ULCER; L97.509 - NON-PRESSURE CHRONIC ULCER OTH PRT UNSP FOOT W UNSP SEVERITY Assessment/Plan see problem list
[2018-10-27] MEDS ORDERED: ACETAMINOPHEN 325 MG TABLET (FP) PO PRN (11:27)
--- NOTE | 2018-10-27 11:52 | CONSULT ---
- Consultation REQUESTING PROVIDER: CONSULT REQUEST: We have been asked to surgically evaluate this patient for right big toe DM foot ulcer. PCP:Brannon Gutierrez HISTORY OF PRESENT ILLNESS: Patient is a 68-year-old male with past medical history of insulin-dependent diabetes, hypertension, chronic foot ulcers who presented to the ER for infected foot ulcers and fever x several days. He states that the ulcers got worse over the past 5 days when he developed chills yesterday. He states that the right foot is draining and that it hurts to walk. He has not been to wound care clinic for over 4 months. He also has not seen podiatry in years. PMHx: 1. CKD 2. DM 3. HTN 4. DFU 5. HLD 6. BPH 7. osteo 8. proteinuria 9. FRANKI PSHX Abdominal Surgery: No Appendectomy: No Cardiac Surgery: Yes (STENTS, BYPASS) Cholecystectomy: No Lung Surgery: No Neurologic Surgery: No Orthopedic Surgery: No Home Medications Medication Instructions Recorded Aspirin [ASA -] 81 mg PO DAILY 07/19/16 Clopidogrel Bisulfate [Plavix -] 75 mg PO DAILY 07/19/16 Rosuvastatin [Crestor -] 40 mg PO DAILY 07/19/16 Tamsulosin HCl [Flomax] 0.4 mg PO HS #7 cap.er.24h 06/07/17 Amlodipine Besylate [Norvasc -] 10 mg PO DAILY tablet 12/29/17 Insulin Sliding Scale [Novolog 1 vial SQ TIDAC units 12/29/17 Vial Sliding Scale -] Insulin (Levemir) [Levemir Vial] 50 units SQ AM 03/12/18 Lisinopril [Prinivil] 5 mg PO BID 03/12/18 Amoxicillin - [Amoxicillin 500mg 500 mg PO TID 14 Days #60 capsule 05/10/18 Capsule -] MDD 3 Collagenase Clostridium Hist. 1 applic TP DAILY #1 tube 05/10/18 [Santyl -] Allergies Allergy/AdvReac Type Severity Reaction Status Date / Time No Known Allergies Allergy Verified 05/07/18 11:08 REVIEW OF SYSTEMS: Constitutional: reports: Chills, Fever, Malaise Eyes: reports: No Symptoms HENT: reports: No Symptoms Neck: reports: No Symptoms Cardiovascular: reports: No Symptoms Respiratory: reports: No Symptoms Gastrointestinal: reports: No Symptoms Genitourinary: reports: No Symptoms Musculoskeletal: reports: Other (right toe ulcer) Neurological: reports: No Symptoms Hematology/Lymphatic: reports: No Symptoms Psychiatric: reports: No Symptoms PHYSICAL EXAM: GENERAL: Awake, alert, and fully oriented, in no acute distress. HEAD: Normal with no signs of trauma. EYES: sclera anicteric, conjunctiva clear. LUNGS: no auditory wheezes, and No accessory muscle use. LOWER EXTREMITIES: right foot and toes with hyperkaratosis and chronic skin changes, right great toe with large callus surrounding small,well circumscribed DM ulcer over plantar surface, fibrinous tissue seen at base with no active d/ c. dorsal surface of toe with edema and erythema, 2+ DP and PT pulses, no foul odor, warm, well-perfused. No calf tenderness. No peripheral edema. left foot and toes with callus and hyperkaritosis throughout with chronic skin changes with no ulcers or broken skin NEUROLOGICAL: Normal speech, gait not observed. PSYCH: Cooperative. Good eye contact. Appropriate mood and affect. SKIN: Warm, dry, normal turgor, no rashes or lesions noted. Vital Signs Temperature 98 F 10/27/18 05:51 Pulse Rate 71 10/27/18 05:51 Respiratory Rate 20 10/27/18 05:51 Blood Pressure 123/64 10/27/18 05:51 O2 Sat by Pulse Oximetry (%) 98 10/27/18 01:30 Lab Results WBC 11.5 K/mm3 (4.0-10.0) H 10/27/18 05:30 RBC 3.87 M/mm3 (4.00-5.60) L 10/27/18 05:30 Hgb 10.7 GM/dL (11.7-16.9) L 10/27/18 05:30 Hct 32.6 % (35.4-49) L 10/27/18 05:30 MCV 84.3 fl (80-96) 10/27/18 05:30 MCHC 33.0 g/dl (32.0-35.9) 10/27/18 05:30 RDW 15.8 % (11.9-15.9) 10/27/18 05:30 Plt Count 181 K/MM3 (134-434) 10/27/18 05:30 Sodium 133 mmol/L (136-145) L 10/27/18 05:30 Potassium 3.9 mmol/L (3.5-5.1) 10/27/18 05:30 Chloride 100 mmol/L (98-107) 10/27/18 05:30 Carbon Dioxide 23 mmol/L (21-32) 10/27/18 05:30 Anion Gap 10 MMOL/L (8-16) 10/27/18 05:30 BUN 53 mg/dL (7-18) H 10/27/18 05:30 Creatinine 2.3 mg/dL (0.55-1.3) H 10/27/18 05:30 Random Glucose 327 mg/dL (74-106) H* 10/27/18 05:30 Calcium 8.2 mg/dL (8.5-10.1) L 10/27/18 05:30 Problem List - Problems (1) Foot ulcer due to secondary DM Assessment/Plan: Patient with stable DM foot ulcer and palpable pulses no evidence for surgical intervention. 1) Santyl to right great toe daily 2) refer to podiaty for overall foot care/ footwear 3) MRI to r/o Osteo 4) IV abx per ID 5) offload pressure sensitive areas 6) re-consult surgery PRN Code(s): E13.621 - OTHER SPECIFIED DIABETES MELLITUS WITH FOOT ULCER; L97.509 - NON-PRESSURE CHRONIC ULCER OTH PRT UNSP FOOT W UNSP SEVERITY
--- NOTE | 2018-10-27 12:01 | CONSULT ---
Consult Consult Specialty:: Nephrology Reason for Consultation:: FRANKI - History of Present Illness Chief Complaint: right great toe infection History of Present Illness: Pt is a 68 year old male with pmhx of DM and CKD who presents to the ER with a right great toe infection. He says that he did have fevers. He denies shortness of breath. He denies dysuira or hematuria. He was found to have elevated creatinine. He denies nsaid use. He was admitted and started on abx. He has history of DFU as well. - History Source History Provided By: Patient, Medical Record - Past Medical History [employer]: Yes: Migraine Cardio/Vascular: Yes: CAD, HTN, Hyperlipdemia, [place] Gastrointestinal: Yes: GERD Renal/: Yes: Renal Inusuff Endocrine: Yes: Diabetes Mellitus - Past Surgical History Past Surgical History: Yes: Stent - Alcohol/Substance Use Hx Alcohol Use: No - Smoking History Smoking history: Unknown if ever smoked Have you smoked in the past 12 months: No If you are a former smoker, when did you quit?: 1979 Home Medications - Allergies Allergies/Adverse Reactions: Allergies Allergy/AdvReac Type Severity Reaction Status Date / Time No Known Allergies Allergy Verified 05/07/18 11:08 - Home Medications Home Medications: Ambulatory Orders Aspirin [ASA -] 81 mg PO DAILY 07/19/16 Clopidogrel Bisulfate [Plavix -] 75 mg PO DAILY 07/19/16 Rosuvastatin [Crestor -] 40 mg PO DAILY 07/19/16 Tamsulosin HCl [Flomax] 0.4 mg PO HS #7 cap.er.24h 06/07/17 Amlodipine Besylate [Norvasc -] 10 mg PO DAILY tablet 12/29/17 Insulin Sliding Scale [Novolog Vial Sliding Scale -] 1 vial SQ TIDAC units Insulin (Levemir) [Levemir Vial] 50 units SQ AM 03/12/18 Lisinopril [Prinivil] 5 mg PO BID 03/12/18 Amoxicillin - [Amoxicillin 500mg Capsule -] 500 mg PO TID 14 Days #60 capsule MDD 3 05/10/18 Collagenase Clostridium Hist. [Santyl -] 1 applic TP DAILY #1 tube 05/10/18 Family Disease History - Family Disease History Family History: Denies Review of Systems - Review of Systems Constitutional: reports: Chills, Fever, Malaise Eyes: reports: No Symptoms HENT: reports: No Symptoms Neck: reports: No Symptoms Cardiovascular: reports: No Symptoms Respiratory: reports: No Symptoms Gastrointestinal: reports: No Symptoms Genitourinary: reports: No Symptoms Musculoskeletal: reports: Other (right toe ulcer) Neurological: reports: No Symptoms Hematology/Lymphatic: reports: No Symptoms Psychiatric: reports: No Symptoms Physical Exam Vital Signs: Vital Signs Temperature 98 F 10/27/18 05:51 Pulse Rate 71 10/27/18 05:51 Respiratory Rate 20 10/27/18 05:51 Blood Pressure 123/64 10/27/18 05:51 O2 Sat by Pulse Oximetry (%) 98 10/27/18 01:30 Constitutional: Yes: Calm Eyes: Yes: Conjunctiva Clear HENT: Yes: Atraumatic Neck: Yes: Supple Cardiovascular: Yes: S1, S2 Respiratory: Yes: CTA Bilaterally Gastrointestinal: Yes: WNL, Soft Renal/: Yes: WNL Edema: No Neurological: Yes: Oriented Psychiatric: Yes: Oriented Labs: CBC, BMP 10/27/18 05:30 10/27/18 05:30 Laboratory Tests 09/13/18 10/26/18 10/26/18 17:17 16:15 16:16 WBC 14.9 H Potassium BUN Creatinine 1.8 H 1.8 H Random Glucose 10/27/18 10/27/18 05:30 05:30 WBC 11.5 H Potassium 3.9 BUN 53 H Creatinine 2.3 H Random Glucose 327 H* Imaging - Results Ultrasound: Report Reviewed Assessment/Plan Current Medications Generic Name Dose Route Start Last Admin Trade Name Freq PRN Reason Stop Dose Admin Acetaminophen 650 mg 10/27/18 11:27 Tylenol - PO Q4H PRN PAIN OR FEVER Amlodipine Besylate 10 mg 10/27/18 10:00 10/27/18 09:12 Norvasc - PO 10 mg DAILY [facility] Administration Aspirin 81 mg 10/27/18 10:00 10/27/18 09:11 Asa - PO 81 mg DAILY [facility] Administration Clopidogrel Bisulfate 75 mg 10/27/18 10:00 10/27/18 09:12 Plavix - PO 75 mg DAILY [facility] Administration Heparin Sodium (Porcine) 5,000 unit 10/26/18 22:00 10/27/18 09:12 Heparin - SQ 5,000 unit BID [facility] Administration Insulin Aspart 1 vial 10/26/18 22:00 10/27/18 11:41 Novolog Vial Sliding Scale - SQ 4 units ACHS [facility] Administration Protocol Insulin Detemir 50 units 10/27/18 07:00 10/27/18 06:03 Levemir Vial SQ 50 units DAILY@0700 [facility] Administration Lisinopril 5 mg 10/26/18 22:00 10/27/18 09:11 Prinivil PO 5 mg BID [facility] Administration Rosuvastatin Calcium 40 mg 10/27/18 22:00 Crestor - PO HS [facility] Tamsulosin HCl 0.4 mg 10/26/18 22:00 10/26/18 23:14 Flomax - PO 0.4 mg HS [facility] Administration Impression 1. CKD 2. DM 3. HTN 4. DFU 5. HLD 6. BPH 7. osteo 8. proteinuria 9. FRANKI Plan - will start hydration - repeat labs in am - will need better glucose control - wound care to foot - abx per medical team - hold mal if renal function worsens
[2018-10-27] MEDS ORDERED: SODIUM CHLORIDE 0.45% 1,000 ML IV SCH (12:15)
--- NOTE | 2018-10-27 13:41 | CON.ID ---
Consult Consult Specialty:: infectious disease Referred by:: marlen Reason for Consultation:: foot infection - History of Present Illness Chief Complaint: fever History of Present Illness: fever and drainage from the right big toe for 2 days notes he has a dry ulcer on left foot that does not bother him or have drainage history of DM denies trauma denies antiibotics at home - History Source History Provided By: Patient - Past Medical History [employer]: Yes: Migraine Cardio/Vascular: Yes: CAD, HTN, Hyperlipdemia, [place] Gastrointestinal: Yes: GERD Renal/: Yes: Renal Inusuff Endocrine: Yes: Diabetes Mellitus - Past Surgical History Past Surgical History: Yes: CABG, Stent - Alcohol/Substance Use Hx Alcohol Use: Yes History of Substance Use: reports: None - Smoking History Smoking history: Never smoked Have you smoked in the past 12 months: No If you are a former smoker, when did you quit?: 1979 - Social History Usual Living Arrangement: Alone ADL: Independent 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 Place of : Other ([place]) History of Recent Travel: No Home Medications - Allergies Allergies/Adverse Reactions: Allergies Allergy/AdvReac Type Severity Reaction Status Date / Time No Known Allergies Allergy Verified 05/07/18 11:08 - Home Medications Home Medications: Ambulatory Orders Aspirin [ASA -] 81 mg PO DAILY 07/19/16 Clopidogrel Bisulfate [Plavix -] 75 mg PO DAILY 07/19/16 Rosuvastatin [Crestor -] 40 mg PO DAILY 07/19/16 Tamsulosin HCl [Flomax] 0.4 mg PO HS #7 cap.er.24h 06/07/17 Amlodipine Besylate [Norvasc -] 10 mg PO DAILY tablet 12/29/17 Insulin Sliding Scale [Novolog Vial Sliding Scale -] 1 vial SQ TIDAC units Insulin (Levemir) [Levemir Vial] 50 units SQ AM 03/12/18 Lisinopril [Prinivil] 5 mg PO BID 03/12/18 Amoxicillin - [Amoxicillin 500mg Capsule -] 500 mg PO TID 14 Days #60 capsule MDD 3 05/10/18 Collagenase Clostridium Hist. [Santyl -] 1 applic TP DAILY #1 tube 05/10/18 Family Disease History - Family Disease History Family History: Denies Review of Systems - Review of Systems Constitutional: reports: Chills, Fever Eyes: reports: Other (recent eye surgery - having some vision problems postop) HENT: reports: No Symptoms Neck: reports: No Symptoms Cardiovascular: reports: No Symptoms. denies: Chest Pain Respiratory: reports: No Symptoms. denies: Cough, SOB Gastrointestinal: reports: No Symptoms. denies: Abdominal Pain Genitourinary: reports: No Symptoms Breasts: reports: No Symptoms Reported Musculoskeletal: reports: Other (drainage and swelling right first toe) Hematology/Lymphatic: reports: No Symptoms Psychiatric: reports: No Symptoms Physical Exam Vital Signs: Vital Signs Temperature 98 F 10/27/18 05:51 Pulse Rate 71 10/27/18 05:51 Respiratory Rate 20 10/27/18 05:51 Blood Pressure 123/64 10/27/18 05:51 O2 Sat by Pulse Oximetry (%) 98 10/27/18 01:30 Constitutional: Yes: Well Nourished, No Distress, Calm Eyes: Yes: Conjunctiva Clear HENT: Yes: Atraumatic, Normocephalic Neck: Yes: Supple, Trachea Midline Cardiovascular: Yes: Regular Rate and Rhythm, Murmur (2/6 hsm) Respiratory: Yes: Regular, CTA Bilaterally Gastrointestinal: Yes: Normal Bowel Sounds, Soft ...Rectal Exam: Yes: Deferred Extremities: Yes: Other (plantar ulcer first big toe right foot with purulent drainage) Peripheral Pulses WNL: Yes Psychiatric: Yes: Alert, Oriented Labs: CBC, BMP 10/27/18 05:30 10/27/18 05:30 Microbiology 10/26/18 16:16 Blood - Peripheral Venous Blood Culture - Preliminary Pending Organism Imaging - Results Chest X-ray: Report Reviewed, Image Reviewed (cardiomegaly, sternal wires) X-ray: Report Reviewed (foot- ?bony destruction) Problem List - Problems (1) Bacteremia Code(s): R78.81 - BACTEREMIA (2) Diabetic foot infection Code(s): E11.628 - TYPE 2 DIABETES MELLITUS WITH OTHER SKIN COMPLICATIONS; L08.9 - LOCAL INFECTION OF THE SKIN AND SUBCUTANEOUS TISSUE, UNSP (3) Osteomyelitis Code(s): M86.9 - OSTEOMYELITIS, UNSPECIFIED (4) Acute kidney injury superimposed on CKD Code(s): N17.9 - ACUTE KIDNEY FAILURE, UNSPECIFIED; N18.9 - CHRONIC KIDNEY DISEASE, UNSPECIFIED
[2018-10-27] MEDS ORDERED: VANCOMYCIN 1 GM PREMIX - 1 GM/200 ML BAG IVPB ONE (14:00)
[2018-10-27] MEDS: PIPERACILLIN/TAZOB 2.25 GM 2.25 GM in DEXTROSE 5%-WATER - 50 ML IVPB SCH ×2 (14:31→21:32)
[2018-10-27] MEDS: TAMSULOSIN HCL 0.4 MG CAP PO SCH (22:32)
[2018-10-27] MEDS: ROSUVASTATIN CA 20 MG TABLET (FP) PO SCH (22:32)
--- NOTE | 2018-10-28 00:04 | CONSULT ---
Consult Consult Specialty:: endocrine Referred by:: brad araya md Reason for Consultation:: diabetes mellitus 2 - History of Present Illness Chief Complaint: high sugars History of Present Illness: 68-year-old male with past medical history of |DM 2, hypertension, chronic foot ulcers who presents for infected foot ulcers and fever. He states that the ulcers got worse over past few days. He noticed chills today. He states that the right foot is draining and that it hurts to walk. He has not been to wound care and "a long time." He states that he also had nausea and vomiting with elevated sugars and blood pressure.he denies cough or sputum production. 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 History of Recent Travel: No Home Medications - Allergies Allergies/Adverse Reactions: Allergies Allergy/AdvReac Type Severity Reaction Status Date / Time No Known Allergies Allergy Verified 05/07/18 11:08 - Home Medications Home Medications: Ambulatory Orders Aspirin [ASA -] 81 mg PO DAILY 07/19/16 Clopidogrel Bisulfate [Plavix -] 75 mg PO DAILY 07/19/16 Rosuvastatin [Crestor -] 40 mg PO DAILY 07/19/16 Tamsulosin HCl [Flomax] 0.4 mg PO HS #7 cap.er.24h 06/07/17 Amlodipine Besylate [Norvasc -] 10 mg PO DAILY tablet 12/29/17 Insulin Sliding Scale [Novolog Vial Sliding Scale -] 1 vial SQ TIDAC units Insulin (Levemir) [Levemir Vial] 50 units SQ AM 03/12/18 Lisinopril [Prinivil] 5 mg PO BID 03/12/18 Amoxicillin - [Amoxicillin 500mg Capsule -] 500 mg PO TID 14 Days #60 capsule MDD 3 11/05/18 Collagenase Clostridium Hist. [Santyl -] 1 applic TP DAILY #1 tube 05/10/18 Review of Systems - Review of Systems Constitutional: reports: Lethargy, Weakness Eyes: reports: No Symptoms HENT: reports: No Symptoms Neck: reports: No Symptoms Cardiovascular: reports: Shortness of Breath Respiratory: reports: Exercise Intolerance, SOB on Exertion Gastrointestinal: reports: Bloating Genitourinary: reports: No Symptoms Breasts: reports: No Symptoms Reported Musculoskeletal: reports: Muscle Cramps, Muscle Weakness Integumentary: reports: Wound Neurological: reports: Numbness, Weakness Endocrine: reports: Unexplained Weight Loss Physical Exam Vital Signs: Vital Signs Temperature 98.7 F 10/27/18 23:25 Pulse Rate 88 10/27/18 23:25 Respiratory Rate 18 10/27/18 23:25 Blood Pressure 135/82 10/27/18 23:25 O2 Sat by Pulse Oximetry (%) 100 10/27/18 21:00 Constitutional: Yes: Anxious Eyes: Yes: EOM Intact HENT: Yes: Normocephalic Neck: Yes: Trachea Midline Cardiovascular: Yes: Regular Rate and Rhythm Respiratory: Yes: CTA Bilaterally Gastrointestinal: Yes: Normal Bowel Sounds ...Rectal Exam: Yes: Deferred Renal/: Yes: WNL Breast(s): Yes: WNL Musculoskeletal: Yes: Back Pain, Muscle Weakness Extremities: Yes: Delayed Capillary Refill Edema: No Integumentary: Yes: Skin Tear, Onychomycosis Wound/Incision: Yes: Draining Neurological: Yes: Alert, Oriented Labs: CBC, BMP 10/27/18 05:30 10/27/18 05:30 Problem List - Problems (1) Acute kidney injury superimposed on CKD Code(s): N17.9 - ACUTE KIDNEY FAILURE, UNSPECIFIED; N18.9 - CHRONIC KIDNEY DISEASE, UNSPECIFIED (2) Bacteremia Code(s): R78.81 - BACTEREMIA (3) Diabetes mellitus, insulin dependent (IDDM), uncontrolled Code(s): E10.65 - TYPE 1 DIABETES MELLITUS WITH HYPERGLYCEMIA Qualifiers: Glycemic state: with hyperglycemia Qualified Code(s): E10.65 - Type 1 diabetes mellitus with hyperglycemia (4) HTN (hypertension) Code(s): I10 - ESSENTIAL (PRIMARY) HYPERTENSION Qualifiers: Hypertension type: unspecified Qualified Code(s): I10 - Essential (primary ) hypertension (5) Osteomyelitis Code(s): M86.9 - OSTEOMYELITIS, UNSPECIFIED (6) Wound cellulitis Code(s): L03.90 - CELLULITIS, UNSPECIFIED (7) FRANKI (acute kidney injury) Code(s): N17.9 - ACUTE KIDNEY FAILURE, UNSPECIFIED Assessment/Plan Current Active Problems Acute kidney injury superimposed on CKD (Acute) Bacteremia (Acute) Diabetes mellitus, insulin dependent (IDDM), uncontrolled (Acute) HTN (hypertension) (Acute) Osteomyelitis (Acute) Wound cellulitis (Acute) Abnormal Lab Results 10/27/18 10/27/18 10/27/18 05:30 05:30 05:30 WBC 11.5 H RBC 3.87 L Hgb 10.7 L Hct 32.6 L ESR Sodium 133 L BUN 53 H Creatinine 2.3 H Random Glucose 327 H* Hemoglobin A1c % Calcium 8.2 L C-Reactive Protein 6.1 H Random Vancomycin 13.5 L 10/27/18 10/27/18 05:30 05:30 WBC RBC Hgb Hct ESR 101 H Sodium BUN Creatinine Random Glucose Hemoglobin A1c % 9.3 H Calcium C-Reactive Protein Random Vancomycin Laboratory Tests 10/27/18 10/27/18 10/27/18 05:30 05:30 05:56 Sodium 133 L Potassium 3.9 Chloride 100 Carbon Dioxide 23 Anion Gap 10 BUN 53 H Creatinine 2.3 H POC Glucometer 304 Hemoglobin A1c % 9.3 H 10/27/18 10/27/18 10/27/18 11:17 16:57 23:30 Sodium Potassium Chloride Carbon Dioxide Anion Gap BUN Creatinine POC Glucometer 206 256 216 Hemoglobin A1c % plan: bgm qid novolog insulin doses levemir 50 am
[2018-10-28] MEDS: PIPERACILLIN/TAZOB 2.25 GM 2.25 GM in DEXTROSE 5%-WATER - 50 ML IVPB SCH ×4 (02:53→22:12)
[2018-10-28] MEDS ORDERED: PIPERACILLIN/TAZOBACTAM 2.25 GM VIAL IVPB ONE ×4 (03:46→21:34)
[2018-10-28] MEDS ORDERED: DEXTROSE 5%-WATER - 50 ML IVPB ONE ×4 (03:47→21:34)
[2018-10-28] MEDS ORDERED: INSULIN (NOVOLOG) ASPART 100 UNITS/ML 10ML VIAL ONE ×3 (06:35→22:49)
[2018-10-28] MEDS: INSULIN SLIDING SCALE (NOVOLOG) 1 VIAL SQ SCH ×4 (06:46→23:32)
[2018-10-28 07:15] LABS: BASO % 0.9 % (0-2.0); EOS % 1.9 % (0-4.5); HEMATOCRIT 35.7 % (35.4-49); HEMOGLOBIN 12.1 GM/dL (11.7-16.9); LYMPH % 8.7 % (8-40); MCH 28.6 pg (25.7-33.7); MEAN PLT VOLUME 9.2 fl (7.5-11.1); MONO % 11.5 % (3.8-10.2); PLATELET COUNT 236 K/MM3 (134-434); RBC 4.25 M/mm3 (4.00-5.60); WHITE BLOOD COUNT 7.9 K/mm3 (4.0-10.0)
[2018-10-28 07:45] LABS: ALBUMIN 2.9 g/dl (3.4-5.0); ALK PHOS 73 U/L (45-117); ANION GAP 7 MMOL/L (8-16); BILIRUBIN,TOTAL 0.3 mg/dL (0.2-1); BLOOD UREA NITROGEN 40 mg/dL (7-18); CALCIUM 9.1 mg/dL (8.5-10.1); CHLORIDE 102 mmol/L (98-107); CHOLESTEROL 240 mg/dL (50-200); CO2 26 mmol/L (21-32); GLUCOSE,RANDOM 159 mg/dL (74-106); HDL CHOLESTEROL 45 mg/dL (40-60); POTASSIUM 4.2 mmol/L (3.5-5.1); SGOT/AST 26 U/L (15-37); SGPT/ALT 38 U/L (13-61); SODIUM 135 mmol/L (136-145); TOT PROT 7.5 g/dl (6.4-8.2); TRIGLYCERIDES 161 mg/dL (0-150)
[2018-10-28] MEDS: LISINOPRIL 5 MG TABLET (FP) PO SCH ×2 (10:32→22:11)
[2018-10-28] MEDS: ASPIRIN 81 MG CHEWABLE TABLETS PO SCH (10:32)
[2018-10-28] MEDS: CLOPIDOGREL BISULFATE 75 MG TABLET (FP) PO SCH (10:32)
[2018-10-28] MEDS: HEPARIN NA (PORCINE) 5,000 UNITS/ML 1ML VIAL SQ SCH ×2 (10:33→22:11)
[2018-10-28] MEDS: INSULIN (LEVEMIR) 100 UNITS/ML UNITS SQ SCH (10:33)
[2018-10-28] MEDS: amLODIPine BESYLATE 10 MG TABLET (FP) PO SCH (10:33)
[2018-10-28] MEDS: COLLAGENASE CLOSTRIDIUM HIST. 30 GRAMS TUBE TP SCH (10:34)
--- NOTE | 2018-10-28 11:36 | PN ---
Progress Note, Physician Chief Complaint: Diabetic foot ulcer History of Present Illness: Previous notes and events reviewed awake and alert NAD patient scheduled for MRI of RLE to R/O osteomyelitis denies complaints of pain, severe chest pain, SOB - Current Medication List Current Medications: Active Medications Acetaminophen (Tylenol -) 650 mg PO Q4H PRN PRN Reason: PAIN OR FEVER Amlodipine Besylate (Norvasc -) 10 mg PO DAILY [facility] Last Admin: 10/28/18 10:33 Dose: 10 mg Aspirin (Asa -) 81 mg PO DAILY [facility] Last Admin: 10/28/18 10:32 Dose: 81 mg Clopidogrel Bisulfate (Plavix -) 75 mg PO DAILY [facility] Last Admin: 10/28/18 10:32 Dose: 75 mg Collagenase (Santyl -) 1 applic TP DAILY [facility]; Protocol Last Admin: 10/28/18 10:34 Dose: 1 applic Heparin Sodium (Porcine) (Heparin -) 5,000 unit SQ BID [facility] Last Admin: 10/28/18 10:33 Dose: 5,000 unit Sodium Chloride (1/2 Normal Saline) 1,000 mls @ 50 mls/hr IV ASDIR [facility] Stop: 10/28/18 12:02 Last Admin: 10/27/18 12:56 Dose: 50 mls/hr Piperacillin Sod/Tazobactam (Sod 2.25 gm/ Dextrose) 50 mls @ 100 mls/hr IVPB Q6H-IV [facility]; Protocol Last Admin: 10/28/18 10:32 Dose: 100 mls/hr Insulin Aspart (Novolog Vial Sliding Scale -) 1 vial SQ ACHS [facility]; Protocol Last Admin: 10/28/18 06:46 Dose: Not Given Insulin Detemir (Levemir Vial) 50 units SQ DAILY@0700 [facility] Last Admin: 10/28/18 10:33 Dose: 50 units Lisinopril (Prinivil) 5 mg PO BID [facility] Last Admin: 10/28/18 10:32 Dose: 5 mg Rosuvastatin Calcium (Crestor -) 40 mg PO HS [facility] Last Admin: 10/27/18 22:32 Dose: 40 mg Tamsulosin HCl (Flomax -) 0.4 mg PO HS [facility] Last Admin: 10/27/18 22:32 Dose: 0.4 mg - Objective Vital Signs: Vital Signs Temperature 98 F 10/28/18 06:00 Pulse Rate 80 10/28/18 06:00 Respiratory Rate 18 10/28/18 06:00 Blood Pressure 141/72 10/28/18 06:00 O2 Sat by Pulse Oximetry (%) 100 10/27/18 21:00 Constitutional: Yes: No Distress, Calm Eyes: Yes: Conjunctiva Clear HENT: Yes: Atraumatic Cardiovascular: Yes: Regular Rate and Rhythm Respiratory: Yes: Regular, CTA Bilaterally Gastrointestinal: Yes: Normal Bowel Sounds, Soft Musculoskeletal: Yes: WNL Extremities: Yes: WNL Edema: No Wound/Incision: Yes: Dressing Dry and Intact Neurological: Yes: Alert, Oriented Psychiatric: Yes: Alert, Oriented Labs: CBC, BMP 10/28/18 06:30 10/28/18 06:30 - ....Imaging MRI: Pending Problem List - Problems (1) Diabetes mellitus, insulin dependent (IDDM), uncontrolled Assessment/Plan: -BGM ACHS -HgA1c 9.3% -endocrinology consult -Levemir + ISS -diabetic diet Code(s): E10.65 - TYPE 1 DIABETES MELLITUS WITH HYPERGLYCEMIA Qualifiers: Glycemic state: with hyperglycemia Qualified Code(s): E10.65 - Type 1 diabetes mellitus with hyperglycemia (2) HTN (hypertension) Assessment/Plan: -low Na diet -continue with amlodipine and lisinopril Code(s): I10 - ESSENTIAL (PRIMARY) HYPERTENSION Qualifiers: Hypertension type: unspecified Qualified Code(s): I10 - Essential (primary ) hypertension (3) FRANKI (acute kidney injury) Assessment/Plan: -renal on board -BUN/Cr 40/2.0 -monitor renal function daily Code(s): N17.9 - ACUTE KIDNEY FAILURE, UNSPECIFIED (4) CAD (coronary artery disease) Assessment/Plan: -continue rosuvastatin and plavix Code(s): I25.10 - ATHSCL HEART DISEASE OF [place] CORONARY ARTERY W/O ANG PCTRS (5) Foot ulcer due to secondary DM Assessment/Plan: -Podiatry consult -ID on board -continue IV Vancomycin and Zosyn -no leukocytosis -afebrile -MRI of RLE to R/O osteomyelitis Code(s): E13.621 - OTHER SPECIFIED DIABETES MELLITUS WITH FOOT ULCER; L97.509 - NON-PRESSURE CHRONIC ULCER OTH PRT UNSP FOOT W UNSP SEVERITY Assessment/Plan see problem list dvt ppx
--- NOTE | 2018-10-28 14:23 | PN ---
Progress Note, Physician History of Present Illness: Pt seen and examined at bedside. He is awake and alert. He denies shortness of breath. - Current Medication List Current Medications: Active Medications Acetaminophen (Tylenol -) 650 mg PO Q4H PRN PRN Reason: PAIN OR FEVER Amlodipine Besylate (Norvasc -) 10 mg PO DAILY [facility] Last Admin: 10/28/18 10:33 Dose: 10 mg Aspirin (Asa -) 81 mg PO DAILY [facility] Last Admin: 10/28/18 10:32 Dose: 81 mg Clopidogrel Bisulfate (Plavix -) 75 mg PO DAILY [facility] Last Admin: 10/28/18 10:32 Dose: 75 mg Collagenase (Santyl -) 1 applic TP DAILY [facility]; Protocol Last Admin: 10/28/18 10:34 Dose: 1 applic Heparin Sodium (Porcine) (Heparin -) 5,000 unit SQ BID [facility] Last Admin: 10/28/18 10:33 Dose: 5,000 unit Piperacillin Sod/Tazobactam (Sod 2.25 gm/ Dextrose) 50 mls @ 100 mls/hr IVPB Q6H-IV [facility]; Protocol Last Admin: 10/28/18 10:32 Dose: 100 mls/hr Insulin Aspart (Novolog Vial Sliding Scale -) 1 vial SQ ACHS [facility]; Protocol Last Admin: 10/28/18 12:11 Dose: 7 units Insulin Detemir (Levemir Vial) 50 units SQ DAILY@0700 [facility] Last Admin: 10/28/18 10:33 Dose: 50 units Lisinopril (Prinivil) 5 mg PO BID [facility] Last Admin: 10/28/18 10:32 Dose: 5 mg Rosuvastatin Calcium (Crestor -) 40 mg PO HS [facility] Last Admin: 10/27/18 22:32 Dose: 40 mg Tamsulosin HCl (Flomax -) 0.4 mg PO HS [facility] Last Admin: 10/27/18 22:32 Dose: 0.4 mg - Objective Vital Signs: Vital Signs Temperature 97.5 F L 10/28/18 14:18 Pulse Rate 78 10/28/18 14:18 Respiratory Rate 18 10/28/18 14:18 Blood Pressure 145/78 10/28/18 14:18 O2 Sat by Pulse Oximetry (%) 100 10/27/18 21:00 Constitutional: Yes: Calm Eyes: Yes: Conjunctiva Clear HENT: Yes: Atraumatic Neck: Yes: Supple Cardiovascular: Yes: S1, S2 Respiratory: Yes: CTA Bilaterally Gastrointestinal: Yes: Normal Bowel Sounds, Soft Genitourinary: Yes: WNL Musculoskeletal: Yes: WNL Edema: No Neurological: Yes: Oriented Psychiatric: Yes: Oriented Labs: CBC, BMP 10/28/18 06:30 10/28/18 06:30 Assessment/Plan Current Medications Generic Name Dose Route Start Last Admin Trade Name Freq PRN Reason Stop Dose Admin Acetaminophen 650 mg 10/27/18 11:27 Tylenol - PO Q4H PRN PAIN OR FEVER Amlodipine Besylate 10 mg 10/27/18 10:00 10/28/18 10:33 Norvasc - PO 10 mg DAILY [facility] Administration Aspirin 81 mg 10/27/18 10:00 10/28/18 10:32 Asa - PO 81 mg DAILY [facility] Administration Clopidogrel Bisulfate 75 mg 10/27/18 10:00 10/28/18 10:32 Plavix - PO 75 mg DAILY [facility] Administration Collagenase 1 applic 10/28/18 10:00 10/28/18 10:34 Santyl - TP 1 applic DAILY [facility] Administration Protocol Heparin Sodium (Porcine) 5,000 unit 10/26/18 22:00 10/28/18 10:33 Heparin - SQ 5,000 unit BID [facility] Administration Piperacillin Sod/Tazobactam 50 mls @ 100 mls/hr 10/27/18 15:00 10/28/18 10:32 Sod 2.25 gm/ Dextrose IVPB 100 mls/hr Q6H-IV [facility] Administration Protocol Insulin Aspart 1 vial 10/28/18 00:07 10/28/18 12:11 Novolog Vial Sliding Scale - SQ 7 units ACHS [facility] Administration Protocol Insulin Detemir 50 units 10/27/18 07:00 10/28/18 10:33 Levemir Vial SQ 50 units DAILY@0700 [facility] Administration Lisinopril 5 mg 10/26/18 22:00 10/28/18 10:32 Prinivil PO 5 mg BID [facility] Administration Rosuvastatin Calcium 40 mg 10/27/18 22:00 10/27/18 22:32 Crestor - PO 40 mg HS [facility] Administration Tamsulosin HCl 0.4 mg 10/26/18 22:00 10/27/18 22:32 Flomax - PO 0.4 mg HS [facility] Administration Impression 1. CKD 2. DM 3. HTN 4. DFU 5. HLD 6. BPH 7. osteo 8. proteinuria 9. FRANKI Plan - renal function is improving - repeat labs in am - wound care to foot - abx per medical team - can cont mal as renal function is improving
--- NOTE | 2018-10-28 16:08 | ECHO ---
Name: JOANNE PAN Exam:Adult Echocardiogram Study Date: 10/28/2018 02:26 PM Age: 68 yrs Reason For Study: STREP BACTEREMIA R/O ENDOCARDITIS Height: 63 in Weight: 131 lb BSA: 1.6 m2 MMode/2D Measurements & Calculations IVSd: 0.96 cm Ao root diam: 2.4 cm LVIDd: 5.2 cm LA dimension: 4.4 cm LVIDs: 3.5 cm LVPWd: 0.87 cm EDV(Teich): 129.5 ml LVOT diam: 2.1 cm ESV(Teich): 50.9 ml Doppler Measurements & Calculations MV E max rito: 116.5 cm/sec Ao V2 max: 239.8 cm/sec MV A max rito: 69.6 cm/sec Ao max P.0 mmHg MV E/A: 1.7 KAYCEE(V,D): 0.88 cm2 LV V1 max P.6 mmHg MR max rito: 546.7 cm/sec LV V1 mean P.99 mmHg MR max P.8 mmHg LV V1 max: 63.3 cm/sec LV V1 mean: 47.5 cm/sec LV V1 VTI: 14.7 cm SV(LVOT): 48.9 ml TR max rito: 290.4 cm/sec TR max P.8 mmHg Med Peak E' Rito: 3.4 cm/sec Med E/e': 34.7 Lat Peak E' Rito: 8.9 cm/sec Lat E/e': 13.1 Procedure A complete two-dimensional transthoracic echocardiogram was performed (2D, M-mode, Doppler and color flow Doppler). Left Ventricle The left ventricular size, thickness and function are normal. The left ventricular ejection fraction is normal. Ejection Fraction = 55-60%. The left ventricular wall motion is normal. Right Ventricle The right ventricle is normal in size and function. Atria Normal left and right atrial size and function. Mitral Valve There is mild mitral regurgitation. Tricuspid Valve There is mild tricuspid regurgitation. Right ventricular systolic pressure is normal. Aortic Valve Mild valvular aortic stenosis. No aortic regurgitation is present. Pulmonic Valve The pulmonic valve is not well visualized. Great Vessels The aortic root is normal size. Pericardium/Pleura There is no pericardial effusion. Interpretation Summary The left ventricular size, thickness and function are normal The right ventricle is normal in size and function. There is mild mitral regurgitation. There is mild tricuspid regurgitation. Mild valvular aortic stenosis. MD Leobardo Schaeffer 10/28/2018 04:07 PM
--- NOTE | 2018-10-28 16:23 | CONSULT ---
Consult Consult Specialty:: Podiatry Reason for Consultation:: wound right big toe - History of Present Illness Chief Complaint: wound right big toe History of Present Illness: Patient has a hallux limitus on this foot which causes a break down of toe. He has been offered surgery to repair and relieve area. Patient is non compliant and only conmes in when it is realy bad. Was lost to follow up and admitted for possible bone infection. 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 History of Recent Travel: No Home Medications - Allergies Allergies/Adverse Reactions: Allergies Allergy/AdvReac Type Severity Reaction Status Date / Time No Known Allergies Allergy Verified 05/07/18 11:08 - Home Medications Home Medications: Ambulatory Orders Aspirin [ASA -] 81 mg PO DAILY 07/19/16 Clopidogrel Bisulfate [Plavix -] 75 mg PO DAILY 07/19/16 Rosuvastatin [Crestor -] 40 mg PO DAILY 07/19/16 Tamsulosin HCl [Flomax] 0.4 mg PO HS #7 cap.er.24h 06/07/17 Amlodipine Besylate [Norvasc -] 10 mg PO DAILY tablet 12/29/17 Insulin Sliding Scale [Novolog Vial Sliding Scale -] 1 vial SQ TIDAC units Insulin (Levemir) [Levemir Vial] 50 units SQ AM 03/12/18 Lisinopril [Prinivil] 5 mg PO BID 03/12/18 Amoxicillin - [Amoxicillin 500mg Capsule -] 500 mg PO TID 14 Days #60 capsule MDD 3 05/10/18 Collagenase Clostridium Hist. [Santyl -] 1 applic TP DAILY #1 tube 05/10/18 Physical Exam Vital Signs: Vital Signs Temperature 97.5 F L 10/28/18 14:18 Pulse Rate 78 10/28/18 14:18 Respiratory Rate 18 10/28/18 14:18 Blood Pressure 145/78 10/28/18 14:18 O2 Sat by Pulse Oximetry (%) 100 10/27/18 21:00 Extremities: Yes: Other (hallux limitus right, +grade 3 wound, +macerated and draining, mri report pending,) Labs: CBC, BMP 10/28/18 06:30 10/28/18 06:30 Imaging - Results X-ray: Image Reviewed (bone destruction noted at proximal phalanx head right) Assessment/Plan hallux limitus grade 3 wound om pathologic fx at head of proximal phalanx Daily betadine dresing change to dry area. Awaiting MRI report. HBO consult. Will follow. Post op shoe to bedside. xray reviewed.
[2018-10-28] MEDS ORDERED: VANCOMYCIN 500 MG in DEXTROSE 5%-WATER - 100 ML IVPB ONE (17:23)
--- NOTE | 2018-10-28 17:23 | PN ---
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: feels better today eating dinner had MRI results pending echo no vegetations Vital Signs Period Temp Pulse Resp BP Sys/Mcconnell Pulse Ox Last 24 Hr 97.5 F-98.8 F 72-88 16-18 135-156/72-82 100 cor-rrr llungs clear abd softnt ext big toe right foot with white drainage plantar surgace CBC, BMP 10/28/18 06:30 10/28/18 06:30 Laboratory Tests 10/27/18 10/27/18 10/27/18 05:30 05:30 05:30 ESR 101 H Hemoglobin A1c % 9.3 H C-Reactive Protein 6.1 H Random Vancomycin 10/28/18 06:30 ESR Hemoglobin A1c % C-Reactive Protein Random Vancomycin 16.7 L Microbiology 10/26/18 16:16 Blood - Peripheral Venous Blood Culture - Preliminary Pending Organism 10/26/18 18:16 Toe - Right Hallux Gram Stain - Final 10/26/18 18:16 Toe - Right Hallux Wound Culture - Preliminary Lactose Fermenting Neg Bacilli Pending Organism Pending Organism#2 10/26/18 18:48 Blood - Peripheral Venous Blood Culture - Preliminary Pending Organism a/p strep bacteremia- awaiting ID vancomycin 500 mg tonight f/u cultures in am osteo of the right big toe, ?abscess- podiatry to see, f/u MRI continue zosyn poorly controlled DM CKD Problem List - Problems (1) Bacteremia Code(s): R78.81 - BACTEREMIA (2) Diabetic foot infection Code(s): E11.628 - TYPE 2 DIABETES MELLITUS WITH OTHER SKIN COMPLICATIONS; L08.9 - LOCAL INFECTION OF THE SKIN AND SUBCUTANEOUS TISSUE, UNSP (3) Osteomyelitis Code(s): M86.9 - OSTEOMYELITIS, UNSPECIFIED (4) Acute kidney injury superimposed on CKD Code(s): N17.9 - ACUTE KIDNEY FAILURE, UNSPECIFIED; N18.9 - CHRONIC KIDNEY DISEASE, UNSPECIFIED
[2018-10-28] MEDS: TAMSULOSIN HCL 0.4 MG CAP PO SCH (22:11)
[2018-10-28] MEDS: ROSUVASTATIN CA 20 MG TABLET (FP) PO SCH (22:11)
[2018-10-29] MEDS ORDERED: DEXTROSE 5%-WATER - 50 ML IVPB ONE ×4 (02:16→20:41)
[2018-10-29] MEDS ORDERED: PIPERACILLIN/TAZOBACTAM 2.25 GM VIAL IVPB ONE ×4 (02:16→20:41)
[2018-10-29] MEDS: PIPERACILLIN/TAZOB 2.25 GM 2.25 GM in DEXTROSE 5%-WATER - 50 ML IVPB SCH ×4 (02:20→21:52)
[2018-10-29] MEDS ORDERED: INSULIN (LEVEMIR) 100 UNITS/ML UNITS SQ ONE ×2 (06:06)
[2018-10-29] MEDS: INSULIN SLIDING SCALE (NOVOLOG) 1 VIAL SQ SCH ×4 (06:23→21:52)
[2018-10-29 07:37] LABS: HEMATOCRIT 33.4 % (35.4-49); HEMOGLOBIN 11.1 GM/dL (11.7-16.9); MCH 27.9 pg (25.7-33.7); MCHC 33.3 g/dl (32.0-35.9); MEAN CELL VOLUME 83.8 fl (80-96); MEAN PLT VOLUME 9.2 fl (7.5-11.1); PLATELET COUNT 198 K/MM3 (134-434); RBC 3.99 M/mm3 (4.00-5.60); RDW 16.1 % (11.9-15.9)
[2018-10-29 08:01] LABS: ALBUMIN 2.4 g/dl (3.4-5.0); ALK PHOS 58 U/L (45-117); ANION GAP 6 MMOL/L (8-16); BILIRUBIN,TOTAL 0.2 mg/dL (0.2-1); BLOOD UREA NITROGEN 37 mg/dL (7-18); CALCIUM 8.5 mg/dL (8.5-10.1); CHLORIDE 106 mmol/L (98-107); CO2 25 mmol/L (21-32); CREATININE 1.7 mg/dL (0.55-1.3); GLUCOSE,RANDOM 87 mg/dL (74-106); POTASSIUM 4.3 mmol/L (3.5-5.1); SGOT/AST 26 U/L (15-37); SGPT/ALT 38 U/L (13-61); SODIUM 138 mmol/L (136-145); TOT PROT 6.6 g/dl (6.4-8.2)
[2018-10-29] MEDS: INSULIN (LEVEMIR) 100 UNITS/ML UNITS SQ SCH (09:24)
[2018-10-29] MEDS: amLODIPine BESYLATE 10 MG TABLET (FP) PO SCH (09:26)
[2018-10-29] MEDS: HEPARIN NA (PORCINE) 5,000 UNITS/ML 1ML VIAL SQ SCH ×2 (09:26→21:52)
[2018-10-29] MEDS: ASPIRIN 81 MG CHEWABLE TABLETS PO SCH (09:26)
[2018-10-29] MEDS: LISINOPRIL 5 MG TABLET (FP) PO SCH ×2 (09:26→21:52)
[2018-10-29] MEDS: CLOPIDOGREL BISULFATE 75 MG TABLET (FP) PO SCH (09:26)
[2018-10-29] MEDS: COLLAGENASE CLOSTRIDIUM HIST. 30 GRAMS TUBE TP SCH (09:27)
--- NOTE | 2018-10-29 11:01 | PN ---
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: Pt seen in bed. vss, 97.9 +macerated wound right great toe, awaiting mri report however changes on xray are consistent with om, wbc=6.0 om IVABX. HBO. Betadine dressing change. Vascular consult. Will follow.
--- NOTE | 2018-10-29 14:39 | PN ---
Progress Note, Physician History of Present Illness: Pt seen and examined at bedside. He is awake and alert. He denies shortness of breath. - Current Medication List Current Medications: Active Medications Acetaminophen (Tylenol -) 650 mg PO Q4H PRN PRN Reason: PAIN OR FEVER Amlodipine Besylate (Norvasc -) 10 mg PO DAILY [facility] Last Admin: 10/29/18 09:26 Dose: 10 mg Aspirin (Asa -) 81 mg PO DAILY [facility] Last Admin: 10/29/18 09:26 Dose: 81 mg Clopidogrel Bisulfate (Plavix -) 75 mg PO DAILY [facility] Last Admin: 10/29/18 09:26 Dose: 75 mg Collagenase (Santyl -) 1 applic TP DAILY [facility]; Protocol Last Admin: 10/29/18 09:27 Dose: 1 applic Heparin Sodium (Porcine) (Heparin -) 5,000 unit SQ BID [facility] Last Admin: 10/29/18 09:26 Dose: 5,000 unit Piperacillin Sod/Tazobactam (Sod 2.25 gm/ Dextrose) 50 mls @ 100 mls/hr IVPB Q6H-IV [facility]; Protocol Last Admin: 10/29/18 14:27 Dose: 100 mls/hr Insulin Aspart (Novolog Vial Sliding Scale -) 1 vial SQ ACHS [facility]; Protocol Last Admin: 10/29/18 11:25 Dose: 5 units Insulin Detemir (Levemir Vial) 50 units SQ DAILY@0700 [facility] Last Admin: 10/29/18 09:24 Dose: Not Given Lisinopril (Prinivil) 5 mg PO BID [facility] Last Admin: 10/29/18 09:26 Dose: 5 mg Rosuvastatin Calcium (Crestor -) 40 mg PO HS [facility] Last Admin: 10/28/18 22:11 Dose: 40 mg Tamsulosin HCl (Flomax -) 0.4 mg PO HS [facility] Last Admin: 10/28/18 22:11 Dose: 0.4 mg - Objective Vital Signs: Vital Signs Temperature 97.7 F 10/29/18 13:29 Pulse Rate 78 10/29/18 13:29 Respiratory Rate 18 10/29/18 13:29 Blood Pressure 131/71 10/29/18 13:29 O2 Sat by Pulse Oximetry (%) 98 10/29/18 09:00 Constitutional: Yes: Calm Eyes: Yes: Conjunctiva Clear HENT: Yes: Atraumatic Neck: Yes: Supple Cardiovascular: Yes: S1, S2 Respiratory: Yes: CTA Bilaterally Gastrointestinal: Yes: Soft Genitourinary: Yes: WNL Musculoskeletal: Yes: WNL Edema: No Wound/Incision: Yes: Dressing Dry and Intact Neurological: Yes: Oriented Psychiatric: Yes: Oriented Labs: CBC, BMP 10/29/18 06:45 10/29/18 06:45 Assessment/Plan Current Medications Generic Name Dose Route Start Last Admin Trade Name Chapo PRN Reason Stop Dose Admin Acetaminophen 650 mg 10/27/18 11:27 Tylenol - PO Q4H PRN PAIN OR FEVER Amlodipine Besylate 10 mg 10/27/18 10:00 10/29/18 09:26 Norvasc - PO 10 mg DAILY PRATIK Administration Aspirin 81 mg 10/27/18 10:00 10/29/18 09:26 Asa - PO 81 mg DAILY PRATIK Administration Clopidogrel Bisulfate 75 mg 10/27/18 10:00 10/29/18 09:26 Plavix - PO 75 mg DAILY PRATIK Administration Collagenase 1 applic 10/28/18 10:00 10/29/18 09:27 Santyl - TP 1 applic DAILY [facility] Administration Protocol Heparin Sodium (Porcine) 5,000 unit 10/26/18 22:00 10/29/18 09:26 Heparin - SQ 5,000 unit BID PRATIK Administration Piperacillin Sod/Tazobactam 50 mls @ 100 mls/hr 10/27/18 15:00 10/29/18 14:27 Sod 2.25 gm/ Dextrose IVPB 100 mls/hr Q6H-IV PR[facility]IK Administration Protocol Insulin Aspart 1 vial 10/28/18 00:07 10/29/18 11:25 Novolog Vial Sliding Scale - SQ 5 units ACHS PRATIK Administration Protocol Insulin Detemir 50 units 10/27/18 07:00 10/29/18 09:24 Levemir Vial SQ Not Given DAILY@0700 [facility] Lisinopril 5 mg 10/26/18 22:00 10/29/18 09:26 Prinivil PO 5 mg BID PR[facility] Administration Rosuvastatin Calcium 40 mg 10/27/18 22:00 10/28/18 22:11 Crestor - PO 40 mg HS PR[facility]IK Administration Tamsulosin HCl 0.4 mg 10/26/18 22:00 10/28/18 22:11 Flomax - PO 0.4 mg HS PRAT[facility] Administration Impression 1. CKD 2. DM 3. HTN 4. DFU 5. HLD 6. BPH 7. osteo 8. proteinuria 9. FRANKI Plan - renal function continues to stabilize - cont mal - monitor bp - wound care per primary team - avoid nsaids
--- NOTE | 2018-10-29 15:01 | PN ---
Progress Note, Physician Chief Complaint: Diabetic foot ulcer History of Present Illness: Previous notes and events reviewed awake and alert NAD denies any complaints of pain MRI of RLE completed - Current Medication List Current Medications: Active Medications Acetaminophen (Tylenol -) 650 mg PO Q4H PRN PRN Reason: PAIN OR FEVER Amlodipine Besylate (Norvasc -) 10 mg PO DAILY [facility] Last Admin: 10/29/18 09:26 Dose: 10 mg Aspirin (Asa -) 81 mg PO DAILY [facility] Last Admin: 10/29/18 09:26 Dose: 81 mg Clopidogrel Bisulfate (Plavix -) 75 mg PO DAILY [facility] Last Admin: 10/29/18 09:26 Dose: 75 mg Collagenase (Santyl -) 1 applic TP DAILY [facility]; Protocol Last Admin: 10/29/18 09:27 Dose: 1 applic Heparin Sodium (Porcine) (Heparin -) 5,000 unit SQ BID [facility] Last Admin: 10/29/18 09:26 Dose: 5,000 unit Piperacillin Sod/Tazobactam (Sod 2.25 gm/ Dextrose) 50 mls @ 100 mls/hr IVPB Q6H-IV [facility]; Protocol Last Admin: 10/29/18 14:27 Dose: 100 mls/hr Insulin Aspart (Novolog Vial Sliding Scale -) 1 vial SQ ACHS [facility]; Protocol Last Admin: 10/29/18 11:25 Dose: 5 units Insulin Detemir (Levemir Vial) 50 units SQ DAILY@0700 [facility] Last Admin: 10/29/18 09:24 Dose: Not Given Lisinopril (Prinivil) 5 mg PO BID [facility] Last Admin: 10/29/18 09:26 Dose: 5 mg Rosuvastatin Calcium (Crestor -) 40 mg PO HS [facility] Last Admin: 10/28/18 22:11 Dose: 40 mg Tamsulosin HCl (Flomax -) 0.4 mg PO HS [facility] Last Admin: 10/28/18 22:11 Dose: 0.4 mg - Objective Vital Signs: Vital Signs Temperature 97.7 F 10/29/18 13:29 Pulse Rate 78 10/29/18 13:29 Respiratory Rate 18 10/29/18 13:29 Blood Pressure 131/71 10/29/18 13:29 O2 Sat by Pulse Oximetry (%) 98 10/29/18 09:00 Constitutional: Yes: No Distress, Calm Eyes: Yes: Conjunctiva Clear HENT: Yes: Atraumatic Cardiovascular: Yes: Regular Rate and Rhythm Respiratory: Yes: Regular, CTA Bilaterally Gastrointestinal: Yes: Normal Bowel Sounds, Soft Musculoskeletal: Yes: Muscle Weakness Extremities: Yes: WNL Edema: No Wound/Incision: Yes: Dressing Dry and Intact Neurological: Yes: Alert, Oriented Psychiatric: Yes: Alert, Oriented Labs: CBC, BMP 10/29/18 06:45 10/29/18 06:45 Microbiology 10/26/18 16:16 Blood - Peripheral Venous Blood Culture - Preliminary Alpha Hemolytic Streptococcus 10/26/18 18:16 Toe - Right Hallux Gram Stain - Final 10/26/18 18:16 Toe - Right Hallux Wound Culture - Preliminary Escherichia Coli Esbl [employer] Group D Strep Or Entero Coccus Pending Organism#2 10/28/18 06:25 Blood - Peripheral Venous Blood Culture - Preliminary NO GROWTH OBTAINED AFTER 24 HOURS, INCUBATION TO CONTINUE FOR 4 DAYS. 10/28/18 06:30 Blood - Peripheral Venous Blood Culture - Preliminary NO GROWTH OBTAINED AFTER 24 HOURS, INCUBATION TO CONTINUE FOR 4 DAYS. 10/26/18 18:48 Blood - Peripheral Venous Blood Culture - Preliminary Pending Organism - ....Imaging MRI: Report Reviewed Problem List - Problems (1) Diabetes mellitus, insulin dependent (IDDM), uncontrolled Assessment/Plan: -BGM ACHS -HgA1c 9.3% -endocrinology consult -Levemir + ISS -diabetic diet Code(s): E10.65 - TYPE 1 DIABETES MELLITUS WITH HYPERGLYCEMIA Qualifiers: Glycemic state: with hyperglycemia Qualified Code(s): E10.65 - Type 1 diabetes mellitus with hyperglycemia (2) HTN (hypertension) Assessment/Plan: -low Na diet -continue with amlodipine and lisinopril Code(s): I10 - ESSENTIAL (PRIMARY) HYPERTENSION Qualifiers: Hypertension type: unspecified Qualified Code(s): I10 - Essential (primary ) hypertension (3) FRANKI (acute kidney injury) Assessment/Plan: -renal on board -BUN/Cr 37/1.7 -monitor renal function daily Code(s): N17.9 - ACUTE KIDNEY FAILURE, UNSPECIFIED (4) CAD (coronary artery disease) Assessment/Plan: -continue rosuvastatin and plavix Code(s): I25.10 - ATHSCL HEART DISEASE OF [place] CORONARY ARTERY W/O ANG PCTRS (5) Foot ulcer due to secondary DM Assessment/Plan: -Podiatry consult -ID on board -continue IV Zosyn -no leukocytosis -afebrile -MRI of RLE performed and shows very charachteristic finding of osteomyelitis of the proximal and distal phalanges of the great toe with a perifocal soft tissue swelling compatible with cellulitis with possibility of evolving subcutaneous abscess -vascular consult -PICC line order placed for group home antibiotic therapy Code(s): E13.621 - OTHER SPECIFIED DIABETES MELLITUS WITH FOOT ULCER; L97.509 - NON-PRESSURE CHRONIC ULCER OTH PRT UNSP FOOT W UNSP SEVERITY Assessment/Plan see problem list dvt ppx
--- NOTE | 2018-10-29 16:13 | PN ---
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: feels better today eating dinner MRI with osteomyelitis echo no vegetations Vital Signs Period Temp Pulse Resp BP Sys/Mcconnell Pulse Ox Last 24 Hr 97.7 F-98.5 F 18-78 16-18 131-150/54-76 98-98 cor-rrr lungs clear abd soft,nt ext no drainage, open ulcer big toe 10/27/18 10/27/18 10/27/18 05:30 05:30 05:30 ESR 101 H Hemoglobin A1c % 9.3 H C-Reactive Protein 6.1 H Random Vancomycin 10/28/18 06:30 ESR Hemoglobin A1c % C-Reactive Protein Random Vancomycin 16.7 L Microbiology 10/26/18 16:16 Blood - Peripheral Venous Blood Culture - Preliminary Alpha Hemolytic Streptococcus 10/26/18 18:16 Toe - Right Hallux Gram Stain - Final 10/26/18 18:16 Toe - Right Hallux Wound Culture - Preliminary Escherichia Coli Esbl [employer] Group D Strep Or Entero Coccus Pending Organism#2 10/28/18 06:25 Blood - Peripheral Venous Blood Culture - Preliminary NO GROWTH OBTAINED AFTER 24 HOURS, INCUBATION TO CONTINUE FOR 4 DAYS. 10/28/18 06:30 Blood - Peripheral Venous Blood Culture - Preliminary NO GROWTH OBTAINED AFTER 24 HOURS, INCUBATION TO CONTINUE FOR 4 DAYS. 10/26/18 18:48 Blood - Peripheral Venous Blood Culture - Preliminary Pending Organism vanco trough 17 a/p strep bacteremia- awaiting ID vancomycin 500 mg tonight f/u cultures in am osteo of the right big toe, ?abscess- podiatry to see, debridement?? await final cultures to adjust antibiotics poorly controlled DM CKD Problem List - Problems (1) Bacteremia Code(s): R78.81 - BACTEREMIA (2) Diabetic foot infection Code(s): E11.628 - TYPE 2 DIABETES MELLITUS WITH OTHER SKIN COMPLICATIONS; L08.9 - LOCAL INFECTION OF THE SKIN AND SUBCUTANEOUS TISSUE, UNSP (3) Osteomyelitis Code(s): M86.9 - OSTEOMYELITIS, UNSPECIFIED (4) Acute kidney injury superimposed on CKD Code(s): N17.9 - ACUTE KIDNEY FAILURE, UNSPECIFIED; N18.9 - CHRONIC KIDNEY DISEASE, UNSPECIFIED
[2018-10-29] MEDS ORDERED: VANCOMYCIN 500 MG in DEXTROSE 5%-WATER - 100 ML IVPB ONE (16:14)
[2018-10-29] MEDS ORDERED: INSULIN (NOVOLOG) ASPART 100 UNITS/ML 10ML VIAL ONE (20:41)
[2018-10-29] MEDS: TAMSULOSIN HCL 0.4 MG CAP PO SCH (21:52)
[2018-10-29] MEDS: ROSUVASTATIN CA 20 MG TABLET (FP) PO SCH (21:52)
[2018-10-30] MEDS ORDERED: PIPERACILLIN/TAZOBACTAM 2.25 GM VIAL IVPB ONE ×2 (03:43→08:52)
[2018-10-30] MEDS ORDERED: DEXTROSE 5%-WATER - 50 ML IVPB ONE ×2 (03:44→08:52)
[2018-10-30] MEDS: PIPERACILLIN/TAZOB 2.25 GM 2.25 GM in DEXTROSE 5%-WATER - 50 ML IVPB SCH ×2 (03:56→09:21)
[2018-10-30] MEDS: INSULIN (LEVEMIR) 100 UNITS/ML UNITS SQ SCH (06:23)
[2018-10-30] MEDS: INSULIN SLIDING SCALE (NOVOLOG) 1 VIAL SQ SCH ×4 (06:24→22:22)
[2018-10-30] MEDS ORDERED: INSULIN (NOVOLOG) ASPART 100 UNITS/ML 10ML VIAL ONE (06:50)
[2018-10-30 08:16] LABS: HEMATOCRIT 37.4 % (35.4-49); HEMOGLOBIN 12.3 GM/dL (11.7-16.9); MCH 28.3 pg (25.7-33.7); MEAN CELL VOLUME 85.8 fl (80-96); MEAN PLT VOLUME 9.6 fl (7.5-11.1); PLATELET COUNT 219 K/MM3 (134-434); RBC 4.36 M/mm3 (4.00-5.60); RDW 15.6 % (11.9-15.9); WHITE BLOOD COUNT 5.4 K/mm3 (4.0-10.0)
--- NOTE | 2018-10-30 08:16 | PN ---
Progress Note, Physician Chief Complaint: Diabetic foot ulcer History of Present Illness: Previous notes and events reviewed awake and alert NAD denies any complaints of pain MRI of RLE completed - Current Medication List Current Medications: Active Medications Acetaminophen (Tylenol -) 650 mg PO Q4H PRN PRN Reason: PAIN OR FEVER Amlodipine Besylate (Norvasc -) 10 mg PO DAILY [facility] Last Admin: 10/29/18 09:26 Dose: 10 mg Aspirin (Asa -) 81 mg PO DAILY [facility] Last Admin: 10/29/18 09:26 Dose: 81 mg Clopidogrel Bisulfate (Plavix -) 75 mg PO DAILY [facility] Last Admin: 10/29/18 09:26 Dose: 75 mg Collagenase (Santyl -) 1 applic TP DAILY [facility]; Protocol Last Admin: 10/29/18 09:27 Dose: 1 applic Heparin Sodium (Porcine) (Heparin -) 5,000 unit SQ BID [facility] Last Admin: 10/29/18 21:52 Dose: 5,000 unit Piperacillin Sod/Tazobactam (Sod 2.25 gm/ Dextrose) 50 mls @ 100 mls/hr IVPB Q6H-IV [facility]; Protocol Last Admin: 10/30/18 03:56 Dose: 100 mls/hr Insulin Aspart (Novolog Vial Sliding Scale -) 1 vial SQ ACHS [facility]; Protocol Last Admin: 10/30/18 06:24 Dose: 6 units Insulin Detemir (Levemir Vial) 50 units SQ DAILY@0700 [facility] Last Admin: 10/30/18 06:23 Dose: 50 units Lisinopril (Prinivil) 5 mg PO BID [facility] Last Admin: 10/29/18 21:52 Dose: 5 mg Rosuvastatin Calcium (Crestor -) 40 mg PO HS [facility] Last Admin: 10/29/18 21:52 Dose: 40 mg Tamsulosin HCl (Flomax -) 0.4 mg PO HS [facility] Last Admin: 10/29/18 21:52 Dose: 0.4 mg - Objective Vital Signs: Vital Signs Temperature 97.9 F 10/30/18 05:49 Pulse Rate 77 10/30/18 05:49 Respiratory Rate 20 10/30/18 05:49 Blood Pressure 145/81 10/30/18 05:49 O2 Sat by Pulse Oximetry (%) 96 10/29/18 21:00 Constitutional: Yes: No Distress, Calm Eyes: Yes: Conjunctiva Clear HENT: Yes: Atraumatic Cardiovascular: Yes: Regular Rate and Rhythm Respiratory: Yes: Regular, CTA Bilaterally Gastrointestinal: Yes: Normal Bowel Sounds, Soft Musculoskeletal: Yes: WNL Extremities: Yes: WNL Edema: No Wound/Incision: Yes: Dressing Dry and Intact Neurological: Yes: Alert, Oriented Psychiatric: Yes: Alert, Oriented Labs: CBC,CMP WBC 6.0 K/mm3 (4.0-10.0) 10/29/18 06:45 RBC 3.99 M/mm3 (4.00-5.60) L 10/29/18 06:45 Hgb 11.1 GM/dL (11.7-16.9) L 10/29/18 06:45 Hct 33.4 % (35.4-49) L 10/29/18 06:45 MCV 83.8 fl (80-96) 10/29/18 06:45 MCH 27.9 pg (25.7-33.7) 10/29/18 06:45 MCHC 33.3 g/dl (32.0-35.9) 10/29/18 06:45 RDW 16.1 % (11.9-15.9) H 10/29/18 06:45 Plt Count 198 K/MM3 (134-434) 10/29/18 06:45 MPV 9.2 fl (7.5-11.1) 10/29/18 06:45 Absolute Neuts (auto) 6.1 K/mm3 (1.5-8.0) 10/28/18 06:30 Total Counted 100 10/26/18 16:15 Neutrophils % 77.0 % (42.8-82.8) 10/28/18 06:30 Neutrophils % (Manual) 89.0 % (42.8-82.8) H 10/26/18 16:15 Band Neutrophils % 1.0 % 10/26/18 16:15 Lymphocytes % 8.7 % (8-40) D 10/28/18 06:30 Lymphocytes % (Manual) 3.0 % (8-40) L 10/26/18 16:15 Monocytes % 11.5 % (3.8-10.2) H D 10/28/18 06:30 Monocytes % (Manual) 6 % (3.8-10.2) 10/26/18 16:15 Eosinophils % 1.9 % (0-4.5) D 10/28/18 06:30 Eosinophils % (Manual) 1.0 % (0-4.5) 10/26/18 16:15 Basophils % 0.9 % (0-2.0) 10/28/18 06:30 Nucleated RBC % 0 % (0-0) 10/28/18 06:30 Differential Comment Man diff performed 10/26/18 16:15 Platelet Estimate Adequate 10/26/18 16:15 Platelet Comment 10/26/18 16:15 ESR 101 mm/hr (0-20) H 10/27/18 05:30 Sodium 138 mmol/L (136-145) 10/29/18 06:45 Potassium 4.3 mmol/L (3.5-5.1) 10/29/18 06:45 Chloride 106 mmol/L (98-107) 10/29/18 06:45 Carbon Dioxide 25 mmol/L (21-32) 10/29/18 06:45 Anion Gap 6 MMOL/L (8-16) L 10/29/18 06:45 BUN 37 mg/dL (7-18) H 10/29/18 06:45 Creatinine 1.7 mg/dL (0.55-1.3) H 10/29/18 06:45 Creat Clearance w eGFR 40.40 (>60) 10/29/18 06:45 POC Glucometer 208 UNITS (80-120) 10/30/18 06:22 Random Glucose 87 mg/dL (74-106) 10/29/18 06:45 Hemoglobin A1c % 9.3 % (4.2-6.3) H 10/27/18 05:30 Lactic Acid 1.3 mmol/L (0.4-2.0) 10/26/18 16:16 Calcium 8.5 mg/dL (8.5-10.1) 10/29/18 06:45 Total Bilirubin 0.2 mg/dL (0.2-1) 10/29/18 06:45 AST 26 U/L (15-37) 10/29/18 06:45 ALT 38 U/L (13-61) 10/29/18 06:45 Alkaline Phosphatase 58 U/L (45-117) 10/29/18 06:45 C-Reactive Protein 6.1 MG/DL (0.00-0.3) H 10/27/18 05:30 Total Protein 6.6 g/dl (6.4-8.2) 10/29/18 06:45 Albumin 2.4 g/dl (3.4-5.0) L 10/29/18 06:45 Triglycerides 161 mg/dL (0-150) H 10/28/18 06:30 Cholesterol 240 mg/dL (50-200) H 10/28/18 06:30 Total LDL Cholesterol 163 mg/dL (5-100) H 10/28/18 06:30 HDL Cholesterol 45 mg/dL (40-60) 10/28/18 06:30 Problem List - Problems (1) Diabetes mellitus, insulin dependent (IDDM), uncontrolled Assessment/Plan: -BGM ACHS -HgA1c 9.3% -endocrinology consult -Levemir + ISS -diabetic diet Code(s): E10.65 - TYPE 1 DIABETES MELLITUS WITH HYPERGLYCEMIA Qualifiers: Glycemic state: with hyperglycemia Qualified Code(s): E10.65 - Type 1 diabetes mellitus with hyperglycemia (2) HTN (hypertension) Assessment/Plan: -low Na diet -continue with amlodipine and lisinopril Code(s): I10 - ESSENTIAL (PRIMARY) HYPERTENSION Qualifiers: Hypertension type: unspecified Qualified Code(s): I10 - Essential (primary ) hypertension (3) FRANKI (acute kidney injury) Assessment/Plan: -renal on board -BUN/Cr 37/1.7 -monitor renal function daily Code(s): N17.9 - ACUTE KIDNEY FAILURE, UNSPECIFIED (4) CAD (coronary artery disease) Assessment/Plan: -continue rosuvastatin and plavix Code(s): I25.10 - ATHSCL HEART DISEASE OF [place] CORONARY ARTERY W/O ANG PCTRS (5) Foot ulcer due to secondary DM Assessment/Plan: -Podiatry consult -ID on board -continue IV Zosyn -no leukocytosis -afebrile -MRI of RLE performed and shows very charachteristic finding of osteomyelitis of the proximal and distal phalanges of the great toe with a perifocal soft tissue swelling compatible with cellulitis with possibility of evolving subcutaneous abscess -vascular consult -Tunnel catheter order placed for custodial antibiotic therapy Code(s): E13.621 - OTHER SPECIFIED DIABETES MELLITUS WITH FOOT ULCER; L97.509 - NON-PRESSURE CHRONIC ULCER OTH PRT UNSP FOOT W UNSP SEVERITY Assessment/Plan see problem list dvt ppx after Tunnel Catheter insertion patient can be discharged home with home care services and Raegan
--- NOTE | 2018-10-30 08:30 | PN ---
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: Pt seen in bed. Does not want to go to HBO makes him feel sick. vss, 97.9 +macerated wound right great toe, mri right big toe om with possible abscess, + grade 1 wound noted today on left big toe under callous, +tender dystrophic mycotic nails with subungual debris x 10, om grade3 wound right grade 1-2 left IVABX. Debrided bedside under steril technique b/l areas of concern. HBO refused. Betadine dressing change b/l big toe. xray left big toe today. Will follow. Will go home with IVABX and follow up in wound care.
[2018-10-30 09:00] LABS: ALBUMIN 2.8 g/dl (3.4-5.0); ALK PHOS 64 U/L (45-117); ANION GAP 8 MMOL/L (8-16); BILIRUBIN,TOTAL 0.4 mg/dL (0.2-1); BLOOD UREA NITROGEN 35 mg/dL (7-18); CALCIUM 8.7 mg/dL (8.5-10.1); CHLORIDE 103 mmol/L (98-107); CO2 24 mmol/L (21-32); CREATININE 1.9 mg/dL (0.55-1.3); GLUCOSE,RANDOM 234 mg/dL (74-106); POTASSIUM 4.7 mmol/L (3.5-5.1); SGOT/AST 35 U/L (15-37); SGPT/ALT 52 U/L (13-61); SODIUM 135 mmol/L (136-145); TOT PROT 7.4 g/dl (6.4-8.2)
[2018-10-30] MEDS: CLOPIDOGREL BISULFATE 75 MG TABLET (FP) PO SCH (09:21)
[2018-10-30] MEDS: LISINOPRIL 5 MG TABLET (FP) PO SCH ×2 (09:21→21:56)
[2018-10-30] MEDS: amLODIPine BESYLATE 10 MG TABLET (FP) PO SCH (09:21)
[2018-10-30] MEDS: ASPIRIN 81 MG CHEWABLE TABLETS PO SCH (09:21)
[2018-10-30] MEDS: HEPARIN NA (PORCINE) 5,000 UNITS/ML 1ML VIAL SQ SCH ×2 (09:22→21:55)
--- NOTE | 2018-10-30 13:30 | PN ---
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 10/28/18 06:30 Blood - Peripheral Venous Blood Culture - Preliminary NO GROWTH OBTAINED AFTER 48 HOURS, INCUBATION TO CONTINUE FOR 3 DAYS. 10/26/18 16:16 Blood - Peripheral Venous Blood Culture - Preliminary Alpha Hemolytic Streptococcus 10/26/18 18:48 Blood - Peripheral Venous Blood Culture - Preliminary Pending Organism 10/27/18 10/27/18 10/27/18 05:30 05:30 05:30 ESR 101 H Hemoglobin A1c % 9.3 H C-Reactive Protein 6.1 H Random Vancomycin 10/28/18 06:30 ESR Hemoglobin A1c % C-Reactive Protein Random Vancomycin 16.7 L Microbiology 10/26/18 16:16 Blood - Peripheral Venous Blood Culture - Preliminary Alpha Hemolytic Streptococcus 10/26/18 18:16 Toe - Right Hallux Gram Stain - Final 10/26/18 18:16 Toe - Right Hallux Wound Culture - Preliminary Escherichia Coli Esbl Senior Oracle Database 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 10/28/18 06:30 Blood - Peripheral Venous Blood Culture - Preliminary NO GROWTH OBTAINED AFTER 24 HOURS, INCUBATION TO CONTINUE FOR 4 DAYS. 10/26/18 18:48 Blood - Peripheral Venous Blood Culture - Preliminary Pending Organism vanco trough 17 a/p strep bacteremia- awaiting ID! vancomycin 500 mg today f/u cultures in am osteo of the right big toe, ?abscess- podiatry to see, debridement?? await final cultures to adjust antibiotics-switch to ertapenem poorly controlled DM CKD Problem List - Problems (1) Bacteremia Code(s): R78.81 - BACTEREMIA (2) Diabetic foot infection Code(s): E11.628 - TYPE 2 DIABETES MELLITUS WITH OTHER SKIN COMPLICATIONS; L08.9 - LOCAL INFECTION OF THE SKIN AND SUBCUTANEOUS TISSUE, UNSP (3) Osteomyelitis Code(s): M86.9 - OSTEOMYELITIS, UNSPECIFIED (4) Acute kidney injury superimposed on CKD Code(s): N17.9 - ACUTE KIDNEY FAILURE, UNSPECIFIED; N18.9 - CHRONIC KIDNEY DISEASE, UNSPECIFIED
[2018-10-30] MEDS ORDERED: VANCOMYCIN 500 MG in DEXTROSE 5%-WATER - 100 ML IVPB ONE (13:32)
[2018-10-30] MEDS ORDERED: ERTAPENEM SODIUM 1 GM in SODIUM CHLORIDE 50 ML IVPB SCH (13:45)
[2018-10-30] MEDS: ERTAPENEM SODIUM 1 GM in SODIUM CHLORIDE 50 ML IVPB SCH (15:25)
--- NOTE | 2018-10-30 17:04 | PN ---
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 Current Medications Acetaminophen (Tylenol -) 650 mg PO Q4H PRN PRN Reason: PAIN OR FEVER Amlodipine Besylate (Norvasc -) 10 mg PO DAILY [facility] Last Admin: 10/30/18 09:21 Dose: 10 mg Aspirin (Asa -) 81 mg PO DAILY [facility] Last Admin: 10/30/18 09:21 Dose: 81 mg Clopidogrel Bisulfate (Plavix -) 75 mg PO DAILY [facility] Last Admin: 10/30/18 09:21 Dose: 75 mg Heparin Sodium (Porcine) (Heparin -) 5,000 unit SQ BID [facility] Last Admin: 10/30/18 09:22 Dose: 5,000 unit Ertapenem 1 gm/ Sodium (Chloride) 50 mls @ 100 mls/hr IVPB DAILY [facility] Last Admin: 10/30/18 15:25 Dose: 100 mls/hr Insulin Aspart (Novolog Vial Sliding Scale -) 1 vial SQ ACHS [facility]; Protocol Last Admin: 10/30/18 16:25 Dose: 6 units Insulin Detemir (Levemir Vial) 50 units SQ DAILY@0700 [facility] Last Admin: 10/30/18 06:23 Dose: 50 units Lisinopril (Prinivil) 5 mg PO BID [facility] Last Admin: 10/30/18 09:21 Dose: 5 mg Rosuvastatin Calcium (Crestor -) 40 mg PO HS [facility] Last Admin: 10/29/18 21:52 Dose: 40 mg Tamsulosin HCl (Flomax -) 0.4 mg PO HS [facility] Last Admin: 10/29/18 21:52 Dose: 0.4 mg Last Vital Signs Temp Pulse Resp BP Pulse Ox 98.1 F 91 H 20 147/76 95 10/30/18 13:48 10/30/18 13:48 10/30/18 13:48 10/30/18 13:48 10/30/18 09:00 lungs clear heart reg abd soft nontender ext no edema CBC, BMP 10/30/18 06:30 10/30/18 06:30 IMP azotemia trending up again Plan- encourage increase fluids
[2018-10-30] MEDS: ROSUVASTATIN CA 20 MG TABLET (FP) PO SCH (21:55)
[2018-10-30] MEDS: TAMSULOSIN HCL 0.4 MG CAP PO SCH (21:55)
--- NOTE | 2018-10-30 23:58 | PN ---
Progress Note, Physician Chief Complaint: anxious about recent events sugar and foot infection - Current Medication List Current Medications: Active Medications Acetaminophen (Tylenol -) 650 mg PO Q4H PRN PRN Reason: PAIN OR FEVER Amlodipine Besylate (Norvasc -) 10 mg PO DAILY [facility] Last Admin: 10/30/18 09:21 Dose: 10 mg Aspirin (Asa -) 81 mg PO DAILY [facility] Last Admin: 10/30/18 09:21 Dose: 81 mg Clopidogrel Bisulfate (Plavix -) 75 mg PO DAILY [facility] Last Admin: 10/30/18 09:21 Dose: 75 mg Heparin Sodium (Porcine) (Heparin -) 5,000 unit SQ BID [facility] Last Admin: 10/30/18 21:55 Dose: 5,000 unit Ertapenem 1 gm/ Sodium (Chloride) 50 mls @ 100 mls/hr IVPB DAILY [facility] Last Admin: 10/30/18 15:25 Dose: 100 mls/hr Insulin Aspart (Novolog Vial Sliding Scale -) 1 vial SQ [facility]; Protocol Insulin Detemir (Levemir Vial) 50 units SQ DAILY@0700 [facility] Last Admin: 10/30/18 06:23 Dose: 50 units Lisinopril (Prinivil) 5 mg PO BID [facility] Last Admin: 10/30/18 21:56 Dose: 5 mg Rosuvastatin Calcium (Crestor -) 40 mg PO [facility] Last Admin: 10/30/18 21:55 Dose: 40 mg Tamsulosin HCl (Flomax -) 0.4 mg PO [facility] Last Admin: 10/30/18 21:55 Dose: 0.4 mg - Objective Vital Signs: Vital Signs Temperature 98.3 F 10/30/18 18:00 Pulse Rate 81 10/30/18 18:00 Respiratory Rate 20 10/30/18 18:00 Blood Pressure 150/79 10/30/18 18:00 O2 Sat by Pulse Oximetry (%) 95 10/30/18 09:00 Constitutional: Yes: Calm Eyes: Yes: EOM Intact HENT: Yes: Normocephalic Neck: Yes: Trachea Midline Cardiovascular: Yes: Regular Rate and Rhythm Respiratory: Yes: CTA Bilaterally Gastrointestinal: Yes: Normal Bowel Sounds ...Rectal Exam: Yes: Deferred Genitourinary: Yes: WNL Musculoskeletal: Yes: WNL Extremities: Yes: WNL Integumentary: Yes: Onychomycosis, Venous Stasis Changes Wound/Incision: Yes: Draining Neurological: Yes: Numbness, Weakness Labs: CBC, BMP 10/30/18 06:30 10/30/18 06:30 Problem List - Problems (1) Acute kidney injury superimposed on CKD Code(s): N17.9 - ACUTE KIDNEY FAILURE, UNSPECIFIED; N18.9 - CHRONIC KIDNEY DISEASE, UNSPECIFIED (2) Bacteremia Code(s): R78.81 - BACTEREMIA (3) Diabetes mellitus, insulin dependent (IDDM), uncontrolled Code(s): E10.65 - TYPE 1 DIABETES MELLITUS WITH HYPERGLYCEMIA Qualifiers: Glycemic state: with hyperglycemia Qualified Code(s): E10.65 - Type 1 diabetes mellitus with hyperglycemia (4) HTN (hypertension) Code(s): I10 - ESSENTIAL (PRIMARY) HYPERTENSION Qualifiers: Hypertension type: unspecified Qualified Code(s): I10 - Essential (primary ) hypertension (5) Osteomyelitis Code(s): M86.9 - OSTEOMYELITIS, UNSPECIFIED (6) Wound cellulitis Code(s): L03.90 - CELLULITIS, UNSPECIFIED (7) FRANKI (acute kidney injury) Code(s): N17.9 - ACUTE KIDNEY FAILURE, UNSPECIFIED Assessment/Plan Current Active Problems Acute kidney injury superimposed on CKD (Acute) Bacteremia (Acute) Diabetes mellitus, insulin dependent (IDDM), uncontrolled (Acute) HTN (hypertension) (Acute) Osteomyelitis (Acute) Wound cellulitis (Acute) Abnormal Lab Results 10/30/18 10/30/18 06:30 06:30 Sodium 135 L BUN 35 H Creatinine 1.9 H Random Glucose 234 H Hemoglobin A1c % 9.3 H Albumin 2.8 L Laboratory Results - last 24 hr 10/30/18 10/30/18 10/30/18 06:22 06:30 06:30 WBC 5.4 RBC 4.36 Hgb 12.3 Hct 37.4 MCV 85.8 MCH 28.3 MCHC 33.0 RDW 15.6 Plt Count 219 MPV 9.6 Sodium Potassium Chloride Carbon Dioxide Anion Gap BUN Creatinine Creat Clearance w eGFR POC Glucometer 208 Random Glucose Hemoglobin A1c % 9.3 H Calcium Total Bilirubin AST ALT Alkaline Phosphatase Total Protein Albumin 10/30/18 10/30/18 10/30/18 06:30 11:24 16:24 WBC RBC Hgb Hct MCV MCH MCHC RDW Plt Count MPV Sodium 135 L Potassium 4.7 Chloride 103 Carbon Dioxide 24 Anion Gap 8 BUN 35 H Creatinine 1.9 H Creat Clearance w eGFR 35.54 POC Glucometer 360 214 Random Glucose 234 H Hemoglobin A1c % Calcium 8.7 Total Bilirubin 0.4 AST 35 ALT 52 Alkaline Phosphatase 64 Total Protein 7.4 Albumin 2.8 L 10/30/18 20:53 WBC RBC Hgb Hct MCV MCH MCHC RDW Plt Count MPV Sodium Potassium Chloride Carbon Dioxide Anion Gap BUN Creatinine Creat Clearance w eGFR POC Glucometer 155 Random Glucose Hemoglobin A1c % Calcium Total Bilirubin AST ALT Alkaline Phosphatase Total Protein Albumin plan: levemir 60 units am bgm qid novolog scale iv antibiotic
[2018-10-31] MEDS: INSULIN (LEVEMIR) 100 UNITS/ML UNITS SQ SCH (06:15)
[2018-10-31] MEDS: INSULIN SLIDING SCALE (NOVOLOG) 1 VIAL SQ SCH ×4 (06:15→22:35)
[2018-10-31] MEDS ORDERED: INSULIN (NOVOLOG) ASPART 100 UNITS/ML 10ML VIAL ONE (06:25)
[2018-10-31] MEDS ORDERED: INSULIN (LEVEMIR) 100 UNITS/ML UNITS SQ ONE (06:25)
[2018-10-31 07:16] LABS: HEMATOCRIT 36.3 % (35.4-49); HEMOGLOBIN 12.1 GM/dL (11.7-16.9); MCH 28.4 pg (25.7-33.7); MCHC 33.3 g/dl (32.0-35.9); MEAN CELL VOLUME 85.4 fl (80-96); MEAN PLT VOLUME 9.3 fl (7.5-11.1); PLATELET COUNT 204 K/MM3 (134-434); RBC 4.25 M/mm3 (4.00-5.60); RDW 15.6 % (11.9-15.9); WHITE BLOOD COUNT 7.2 K/mm3 (4.0-10.0)
--- NOTE | 2018-10-31 08:40 | PN ---
Progress Note, Physician Chief Complaint: Diabetic foot ulcer History of Present Illness: Previous notes and events reviewed awake and alert NAD denies any complaints of pain to R foot no complaints of chest pain or SOB - Current Medication List Current Medications: Active Medications Acetaminophen (Tylenol -) 650 mg PO Q4H PRN PRN Reason: PAIN OR FEVER Amlodipine Besylate (Norvasc -) 10 mg PO DAILY [facility] Last Admin: 10/30/18 09:21 Dose: 10 mg Aspirin (Asa -) 81 mg PO DAILY [facility] Last Admin: 10/30/18 09:21 Dose: 81 mg Clopidogrel Bisulfate (Plavix -) 75 mg PO DAILY [facility] Last Admin: 10/30/18 09:21 Dose: 75 mg Heparin Sodium (Porcine) (Heparin -) 5,000 unit SQ BID [facility] Last Admin: 10/30/18 21:55 Dose: 5,000 unit Ertapenem 1 gm/ Sodium (Chloride) 50 mls @ 100 mls/hr IVPB DAILY [facility] Last Admin: 10/30/18 15:25 Dose: 100 mls/hr Insulin Aspart (Novolog Vial Sliding Scale -) 1 vial SQ [facility]; Protocol Last Admin: 10/31/18 06:15 Dose: 5 units Insulin Detemir (Levemir Vial) 60 units SQ DAILY@0700 [facility] Last Admin: 10/31/18 06:15 Dose: 60 units Lisinopril (Prinivil) 5 mg PO BID [facility] Last Admin: 10/30/18 21:56 Dose: 5 mg Rosuvastatin Calcium (Crestor -) 40 mg PO [facility] Last Admin: 10/30/18 21:55 Dose: 40 mg Tamsulosin HCl (Flomax -) 0.4 mg PO [facility] Last Admin: 10/30/18 21:55 Dose: 0.4 mg - Objective Vital Signs: Vital Signs Temperature 99.4 F 10/31/18 08:31 Pulse Rate 93 H 10/31/18 08:31 Respiratory Rate 18 10/31/18 08:31 Blood Pressure 143/81 10/31/18 08:31 O2 Sat by Pulse Oximetry (%) 97 10/30/18 21:00 Constitutional: Yes: No Distress, Calm Eyes: Yes: Conjunctiva Clear HENT: Yes: Atraumatic Cardiovascular: Yes: Regular Rate and Rhythm Respiratory: Yes: Regular, CTA Bilaterally Gastrointestinal: Yes: Normal Bowel Sounds, Soft Musculoskeletal: Yes: Muscle Weakness Extremities: Yes: WNL Edema: No Neurological: Yes: Alert, Oriented Psychiatric: Yes: Alert, Oriented Labs: CBC, BMP 10/31/18 06:20 10/30/18 06:30 Microbiology 10/28/18 06:25 Blood - Peripheral Venous Blood Culture - Preliminary NO GROWTH OBTAINED AFTER 72 HOURS, INCUBATION TO CONTINUE FOR 2 DAYS. 10/28/18 06:30 Blood - Peripheral Venous Blood Culture - Preliminary NO GROWTH OBTAINED AFTER 72 HOURS, INCUBATION TO CONTINUE FOR 2 DAYS. 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 Enterococcus Faecalis Diphtheroid/Corynebacterium 10/26/18 18:48 Blood - Peripheral Venous Blood Culture - Preliminary Pending Organism Problem List - Problems (1) Diabetes mellitus, insulin dependent (IDDM), uncontrolled Assessment/Plan: -BGM ACHS -HgA1c 9.3% -endocrinology on board -Levemir + ISS -diabetic diet Code(s): E10.65 - TYPE 1 DIABETES MELLITUS WITH HYPERGLYCEMIA Qualifiers: Glycemic state: with hyperglycemia Qualified Code(s): E10.65 - Type 1 diabetes mellitus with hyperglycemia (2) HTN (hypertension) Assessment/Plan: -low Na diet -continue with amlodipine and lisinopril Code(s): I10 - ESSENTIAL (PRIMARY) HYPERTENSION Qualifiers: Hypertension type: unspecified Qualified Code(s): I10 - Essential (primary ) hypertension (3) FRANKI (acute kidney injury) Assessment/Plan: -renal on board -BUN/Cr 35/1.9 -monitor renal function daily Code(s): N17.9 - ACUTE KIDNEY FAILURE, UNSPECIFIED (4) CAD (coronary artery disease) Assessment/Plan: -continue rosuvastatin and plavix Code(s): I25.10 - ATHSCL HEART DISEASE OF [place] CORONARY ARTERY W/O ANG PCTRS (5) Foot ulcer due to secondary DM Assessment/Plan: -Podiatry consult -ID on board -continue IV Ertapenem -no leukocytosis -afebrile -MRI of RLE performed and shows very charachteristic finding of osteomyelitis of the proximal and distal phalanges of the great toe with a perifocal soft tissue swelling compatible with cellulitis with possibility of evolving subcutaneous abscess -vascular consult -Tunnel catheter order placed for firearms sales associate antibiotic therapy -L foot xray results reviewed Code(s): E13.621 - OTHER SPECIFIED DIABETES MELLITUS WITH FOOT ULCER; L97.509 - NON-PRESSURE CHRONIC ULCER OTH PRT UNSP FOOT W UNSP SEVERITY Assessment/Plan see problem list dvt ppx after Tunnel Catheter insertion patient can be discharged home with home care services and Raegan
[2018-10-31] MEDS: ERTAPENEM SODIUM 1 GM in SODIUM CHLORIDE 50 ML IVPB SCH (09:42)
[2018-10-31] MEDS: HEPARIN NA (PORCINE) 5,000 UNITS/ML 1ML VIAL SQ SCH ×2 (09:44→22:35)
[2018-10-31] MEDS: amLODIPine BESYLATE 10 MG TABLET (FP) PO SCH (09:45)
[2018-10-31] MEDS: LISINOPRIL 5 MG TABLET (FP) PO SCH ×2 (09:45→22:34)
--- NOTE | 2018-10-31 10:23 | PN ---
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: Pt seen in bed. vss, 99.4 +improved wound right and left great toe wounds, xray negative for om left, + tender dystrophic mycotic nails with subungual debris x 10, om grade3 wound right grade 1-2 left IVABX. Betadine dressing change b/l big toe. Will follow. Will go home with IVABX and follow up in wound care or private practice.
[2018-10-31] MEDS ORDERED: VANCOMYCIN 750 MG in DEXTROSE 5%-WATER - 250 ML IVPB ONE (12:14)
--- NOTE | 2018-10-31 12:14 | PN ---
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: MRI with osteomyelitis echo no vegetations no complaints Vital Signs Period Temp Pulse Resp BP Sys/Mcconnell Pulse Ox Last 24 Hr 97.8 F-99.4 F 78-110 17-20 143-184/76-89 97-97 cor-rrr lungs clear abd soft,nt ext no edema right toe ulcer is clean , no drainage CBC, BMP 10/31/18 06:20 10/30/18 06:30 Microbiology 10/28/18 06:25 Blood - Peripheral Venous Blood Culture - Preliminary NO GROWTH OBTAINED AFTER 72 HOURS, INCUBATION TO CONTINUE FOR 2 DAYS. 10/28/18 06:30 Blood - Peripheral Venous Blood Culture - Preliminary NO GROWTH OBTAINED AFTER 72 HOURS, INCUBATION TO CONTINUE FOR 2 DAYS. 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 Enterococcus Faecalis Diphtheroid/Corynebacterium 10/26/18 18:48 Blood - Peripheral Venous Blood Culture - Preliminary Pending Organism 10/27/18 10/27/18 10/27/18 05:30 05:30 05:30 ESR 101 H Hemoglobin A1c % 9.3 H C-Reactive Protein 6.1 H Random Vancomycin 10/28/18 06:30 ESR Hemoglobin A1c % C-Reactive Protein Random Vancomycin 16.7 L vanco trough 12 a/p strep bacteremia- enterococcus vancomycin 500 mg today f/u cultures in am still awaiting sensitivities suspect from toe as the toe is polymicrobial with enterococcus as well osteo of the right big toe-s/p debridement poorly controlled DM CKD continue ertapenem and vancomycin to determine final antiibotics for outpt correction administration in am (6 weeks) Problem List - Problems (1) Bacteremia Code(s): R78.81 - BACTEREMIA (2) Diabetic foot infection Code(s): E11.628 - TYPE 2 DIABETES MELLITUS WITH OTHER SKIN COMPLICATIONS; L08.9 - LOCAL INFECTION OF THE SKIN AND SUBCUTANEOUS TISSUE, UNSP (3) Osteomyelitis Code(s): M86.9 - OSTEOMYELITIS, UNSPECIFIED (4) Acute kidney injury superimposed on CKD Code(s): N17.9 - ACUTE KIDNEY FAILURE, UNSPECIFIED; N18.9 - CHRONIC KIDNEY DISEASE, UNSPECIFIED
--- NOTE | 2018-10-31 15:24 | PN ---
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 Current Medications Acetaminophen (Tylenol -) 650 mg PO Q4H PRN PRN Reason: PAIN OR FEVER Amlodipine Besylate (Norvasc -) 10 mg PO DAILY [facility] Last Admin: 10/31/18 09:45 Dose: 10 mg Aspirin (Asa -) 81 mg PO DAILY [facility] Last Admin: 10/30/18 09:21 Dose: 81 mg Clopidogrel Bisulfate (Plavix -) 75 mg PO DAILY [facility] Last Admin: 10/30/18 09:21 Dose: 75 mg Heparin Sodium (Porcine) (Heparin -) 5,000 unit SQ BID [facility] Last Admin: 10/31/18 09:44 Dose: 5,000 unit Ertapenem 1 gm/ Sodium (Chloride) 50 mls @ 100 mls/hr IVPB DAILY [facility] Last Admin: 10/31/18 09:42 Dose: 100 mls/hr Insulin Aspart (Novolog Vial Sliding Scale -) 1 vial SQ ACHS [facility]; Protocol Last Admin: 10/31/18 11:30 Dose: 9 units Insulin Detemir (Levemir Vial) 60 units SQ DAILY@0700 [facility] Last Admin: 10/31/18 06:15 Dose: 60 units Lisinopril (Prinivil) 5 mg PO BID [facility] Last Admin: 10/31/18 09:45 Dose: 5 mg Rosuvastatin Calcium (Crestor -) 40 mg PO HS [facility] Last Admin: 10/30/18 21:55 Dose: 40 mg Tamsulosin HCl (Flomax -) 0.4 mg PO HS [facility] Last Admin: 10/30/18 21:55 Dose: 0.4 mg Last Vital Signs Temp Pulse Resp BP Pulse Ox 97.9 F 88 20 151/82 97 10/31/18 14:38 10/31/18 14:38 10/31/18 14:38 10/31/18 14:38 10/31/18 09:00 lungs clear heart reg abd soft nontender ext no edema CBC, BMP 10/31/18 06:20 CBC, BMP 10/30/18 06:30 10/30/18 06:30 IMP azotemia trending up labs ordered for tomorrow DM Plan- encourage increase fluids
[2018-10-31] MEDS: CLOPIDOGREL BISULFATE 75 MG TABLET (FP) PO SCH (17:50)
[2018-10-31] MEDS: ASPIRIN 81 MG CHEWABLE TABLETS PO SCH (17:50)
[2018-10-31] MEDS: TAMSULOSIN HCL 0.4 MG CAP PO SCH (22:34)
[2018-10-31] MEDS: ROSUVASTATIN CA 20 MG TABLET (FP) PO SCH (22:34)
[2018-11-01] MEDS: INSULIN SLIDING SCALE (NOVOLOG) 1 VIAL SQ SCH ×4 (06:23→22:38)
[2018-11-01] MEDS: INSULIN (LEVEMIR) 100 UNITS/ML UNITS SQ SCH (06:24)
[2018-11-01 07:02] LABS: HEMATOCRIT 38.6 % (35.4-49); HEMOGLOBIN 12.8 GM/dL (11.7-16.9); MCH 28.3 pg (25.7-33.7); MCHC 33.2 g/dl (32.0-35.9); MEAN CELL VOLUME 85.3 fl (80-96); MEAN PLT VOLUME 9.1 fl (7.5-11.1); PLATELET COUNT 221 K/MM3 (134-434); RBC 4.53 M/mm3 (4.00-5.60); RDW 15.8 % (11.9-15.9); WHITE BLOOD COUNT 7.5 K/mm3 (4.0-10.0)
[2018-11-01 07:39] LABS: ALBUMIN 2.8 g/dl (3.4-5.0); ALK PHOS 66 U/L (45-117); ANION GAP 6 MMOL/L (8-16); BILIRUBIN,TOTAL 0.2 mg/dL (0.2-1); BLOOD UREA NITROGEN 34 mg/dL (7-18); CALCIUM 8.9 mg/dL (8.5-10.1); CHLORIDE 105 mmol/L (98-107); CO2 26 mmol/L (21-32); CREATININE 1.6 mg/dL (0.55-1.3); GLUCOSE,RANDOM 110 mg/dL (74-106); POTASSIUM 4.4 mmol/L (3.5-5.1); SGOT/AST 92 U/L (15-37); SGPT/ALT 125 U/L (13-61); SODIUM 137 mmol/L (136-145); TOT PROT 7.6 g/dl (6.4-8.2)
[2018-11-01] MEDS: amLODIPine BESYLATE 10 MG TABLET (FP) PO SCH (09:14)
[2018-11-01] MEDS: LISINOPRIL 5 MG TABLET (FP) PO SCH ×2 (09:15→22:38)
--- NOTE | 2018-11-01 09:28 | PN ---
Progress Note, Physician - Current Medication List Current Medications: Active Medications Acetaminophen (Tylenol -) 650 mg PO Q4H PRN PRN Reason: PAIN OR FEVER Amlodipine Besylate (Norvasc -) 10 mg PO DAILY [facility] Last Admin: 11/01/18 09:14 Dose: 10 mg Aspirin (Asa -) 81 mg PO DAILY [facility] Last Admin: 10/31/18 17:50 Dose: 81 mg Clopidogrel Bisulfate (Plavix -) 75 mg PO DAILY [facility] Last Admin: 10/31/18 17:50 Dose: 75 mg Heparin Sodium (Porcine) (Heparin -) 5,000 unit SQ BID [facility] Last Admin: 10/31/18 22:35 Dose: 5,000 unit Ertapenem 1 gm/ Sodium (Chloride) 50 mls @ 100 mls/hr IVPB DAILY [facility] Last Admin: 10/31/18 09:42 Dose: 100 mls/hr Insulin Aspart (Novolog Vial Sliding Scale -) 1 vial SQ [facility]; Protocol Last Admin: 11/01/18 06:23 Dose: Not Given Insulin Detemir (Levemir Vial) 60 units SQ DAILY@0700 [facility] Last Admin: 11/01/18 06:24 Dose: 60 units Lisinopril (Prinivil) 5 mg PO BID [facility] Last Admin: 11/01/18 09:15 Dose: 5 mg Rosuvastatin Calcium (Crestor -) 40 mg PO [facility] Last Admin: 10/31/18 22:34 Dose: 40 mg Tamsulosin HCl (Flomax -) 0.4 mg PO [facility] Last Admin: 10/31/18 22:34 Dose: 0.4 mg - Objective Vital Signs: Vital Signs Temperature 98.1 F 11/01/18 05:59 Pulse Rate 82 11/01/18 05:59 Respiratory Rate 18 11/01/18 05:59 Blood Pressure 159/78 11/01/18 05:59 O2 Sat by Pulse Oximetry (%) 95 10/31/18 21:00 Cardiovascular: Yes: Regular Rate and Rhythm Respiratory: Yes: Regular, CTA Bilaterally Gastrointestinal: Yes: Normal Bowel Sounds, Soft Wound/Incision: Yes: Dressing Dry and Intact Labs: CBC, BMP 11/01/18 06:00 11/01/18 06:00 Assessment/Plan - Problems (1) Diabetes mellitus, insulin dependent (IDDM), uncontrolled Assessment/Plan: -BGM ACHS -HgA1c 9.3% -endocrinology on board -Levemir + ISS -diabetic diet Code(s): E10.65 - TYPE 1 DIABETES MELLITUS WITH HYPERGLYCEMIA Qualifiers: Glycemic state: with hyperglycemia Qualified Code(s): E10.65 - Type 1 diabetes mellitus with hyperglycemia (2) HTN (hypertension) Assessment/Plan: -low Na diet -continue with amlodipine and lisinopril Code(s): I10 - ESSENTIAL (PRIMARY) HYPERTENSION Qualifiers: Hypertension type: unspecified Qualified Code(s): I10 - Essential (primary ) hypertension (3) FRANKI (acute kidney injury) Assessment/Plan: -renal on board -BUN/Cr 35/1.9 -monitor renal function daily Code(s): N17.9 - ACUTE KIDNEY FAILURE, UNSPECIFIED (4) CAD (coronary artery disease) Assessment/Plan: -continue rosuvastatin and plavix Code(s): I25.10 - ATHSCL HEART DISEASE OF [place] CORONARY ARTERY W/O ANG PCTRS (5) Foot ulcer due to secondary DM Assessment/Plan: -Podiatry consult -ID on board--abx to be determinned for dc -no leukocytosis -afebrile -MRI of RLE performed and shows very charachteristic finding of osteomyelitis of the proximal and distal phalanges of the great toe with a perifocal soft tissue swelling compatible with cellulitis with possibility of evolving subcutaneous abscess -vascular consult -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
[2018-11-01] MEDS: ERTAPENEM SODIUM 1 GM in SODIUM CHLORIDE 50 ML IVPB SCH (10:08)
[2018-11-01] MEDS: HEPARIN NA (PORCINE) 5,000 UNITS/ML 1ML VIAL SQ SCH ×2 (10:45→22:39)
[2018-11-01] MEDS: CLOPIDOGREL BISULFATE 75 MG TABLET (FP) PO SCH (10:45)
[2018-11-01] MEDS: ASPIRIN 81 MG CHEWABLE TABLETS PO SCH (10:45)
[2018-11-01] MEDS ORDERED: INSULIN (NOVOLOG) ASPART 100 UNITS/ML 10ML VIAL ONE ×2 (11:10→19:58)
--- NOTE | 2018-11-01 12:19 | PN ---
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: Pt seen in bed. vss, +improved wound right and left great toe wounds om grade3 wound right grade 1-2 left IVABX. DC Betadine dressing. Change to Santyl. Awaiting PICC line. Will follow. Will go home with IVABX and follow up in wound care or private practice.
[2018-11-01] MEDS: COLLAGENASE CLOSTRIDIUM HIST. 30 GRAMS TUBE TP SCH (13:25)
--- NOTE | 2018-11-01 15:09 | PN ---
Progress Note, Physician History of Present Illness: Pt seen and examined at bedside. He is awake and alert. He denies fevers or chills. - Current Medication List Current Medications: Active Medications Acetaminophen (Tylenol -) 650 mg PO Q4H PRN PRN Reason: PAIN OR FEVER Amlodipine Besylate (Norvasc -) 10 mg PO DAILY [facility] Last Admin: 11/01/18 09:14 Dose: 10 mg Aspirin (Asa -) 81 mg PO DAILY [facility] Last Admin: 11/01/18 10:45 Dose: 81 mg Clopidogrel Bisulfate (Plavix -) 75 mg PO DAILY [facility] Last Admin: 11/01/18 10:45 Dose: 75 mg Collagenase (Santyl -) 1 applic TP DAILY [facility]; Protocol Last Admin: 11/01/18 13:25 Dose: 1 applic Heparin Sodium (Porcine) (Heparin -) 5,000 unit SQ BID [facility] Last Admin: 11/01/18 10:45 Dose: Not Given Ertapenem 1 gm/ Sodium (Chloride) 50 mls @ 100 mls/hr IVPB DAILY [facility] Last Admin: 11/01/18 10:08 Dose: 100 mls/hr Insulin Aspart (Novolog Vial Sliding Scale -) 1 vial SQ ACHS [facility]; Protocol Last Admin: 11/01/18 11:53 Dose: 9 units Insulin Detemir (Levemir Vial) 60 units SQ DAILY@0700 [facility] Last Admin: 11/01/18 06:24 Dose: 60 units Lisinopril (Prinivil) 5 mg PO BID [facility] Last Admin: 11/01/18 09:15 Dose: 5 mg Rosuvastatin Calcium (Crestor -) 40 mg PO HS [facility] Last Admin: 10/31/18 22:34 Dose: 40 mg Tamsulosin HCl (Flomax -) 0.4 mg PO HS [facility] Last Admin: 10/31/18 22:34 Dose: 0.4 mg - Objective Vital Signs: Vital Signs Temperature 97.9 F 11/01/18 13:26 Pulse Rate 93 H 11/01/18 13:26 Respiratory Rate 20 11/01/18 13:26 Blood Pressure 149/77 11/01/18 13:26 O2 Sat by Pulse Oximetry (%) 96 11/01/18 09:00 Constitutional: Yes: Calm Eyes: Yes: Conjunctiva Clear HENT: Yes: Atraumatic Cardiovascular: Yes: S1, S2 Respiratory: Yes: CTA Bilaterally Gastrointestinal: Yes: Soft Genitourinary: Yes: WNL Musculoskeletal: Yes: WNL Edema: No Wound/Incision: Yes: Dressing Dry and Intact Neurological: Yes: Oriented Psychiatric: Yes: Oriented Labs: CBC, BMP 11/01/18 06:00 11/01/18 06:00 Problem List - Problems (1) Acute kidney injury superimposed on CKD Code(s): N17.9 - ACUTE KIDNEY FAILURE, UNSPECIFIED; N18.9 - CHRONIC KIDNEY DISEASE, UNSPECIFIED (2) Diabetes mellitus, insulin dependent (IDDM), uncontrolled Code(s): E10.65 - TYPE 1 DIABETES MELLITUS WITH HYPERGLYCEMIA Qualifiers: Glycemic state: with hyperglycemia Qualified Code(s): E10.65 - Type 1 diabetes mellitus with hyperglycemia (3) HTN (hypertension) Code(s): I10 - ESSENTIAL (PRIMARY) HYPERTENSION Qualifiers: Hypertension type: unspecified Qualified Code(s): I10 - Essential (primary ) hypertension Assessment/Plan Current Medications Generic Name Dose Route Start Last Admin Trade Name Freq PRN Reason Stop Dose Admin Acetaminophen 650 mg 10/27/18 11:27 Tylenol - PO Q4H PRN PAIN OR FEVER Amlodipine Besylate 10 mg 10/27/18 10:00 11/01/18 09:14 Norvasc - PO 10 mg DAILY [facility] Administration Aspirin 81 mg 10/27/18 10:00 11/01/18 10:45 Asa - PO 81 mg DAILY [facility] Administration Clopidogrel Bisulfate 75 mg 10/27/18 10:00 11/01/18 10:45 Plavix - PO 75 mg DAILY [facility] Administration Collagenase 1 applic 11/01/18 12:30 11/01/18 13:25 Santyl - TP 1 applic DAILY [facility] Administration Protocol Heparin Sodium (Porcine) 5,000 unit 10/26/18 22:00 11/01/18 10:45 Heparin - SQ Not Given BID [facility] Ertapenem 1 gm/ Sodium 50 mls @ 100 mls/hr 10/30/18 14:45 11/01/18 10:08 Chloride IVPB 100 mls/hr DAILY [facility] Administration Insulin Aspart 1 vial 10/30/18 23:55 11/01/18 11:53 Novolog Vial Sliding Scale - SQ 9 units ACHS [facility] Administration Protocol Insulin Detemir 60 units 10/30/18 23:58 04/29/19 06:24 Levemir Vial SQ 60 units DAILY@0700 [facility] Administration Lisinopril 5 mg 10/26/18 22:00 11/01/18 09:15 Prinivil PO 5 mg BID [facility] Administration Rosuvastatin Calcium 40 mg 10/27/18 22:00 10/31/18 22:34 Crestor - PO 40 mg HS [facility] Administration Tamsulosin HCl 0.4 mg 10/26/18 22:00 10/31/18 22:34 Flomax - PO 0.4 mg HS [facility] Administration Impression 1. CKD 2. DM 3. HTN 4. DFU 5. HLD 6. BPH 7. osteo 8. proteinuria 9. FRANKI Plan - renal function stable for now - will need outpt follow up - cont wound care - cont mal for now - avoid nsaids
--- NOTE | 2018-11-01 15:34 | PN ---
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: ambulating in his room, no complaints MRI with osteomyelitis echo no vegetations Vital Signs Period Temp Pulse Resp BP Sys/Mcconnell Pulse Ox Last 24 Hr 97.9 F-98.2 F 82-105 18-20 131-159/68-85 95-96 cor-rrr lungs clear abd soft, nt ext dressing intact CBC, BMP 11/01/18 06:00 11/01/18 06:00 Microbiology 10/26/18 16:16 Blood - Peripheral Venous Blood Culture - Preliminary Streptococcus Mitis 10/28/18 06:25 Blood - Peripheral Venous Blood Culture - Preliminary NO GROWTH OBTAINED AFTER 96 HOURS, INCUBATION TO CONTINUE FOR 1 DAYS. 10/28/18 06:30 Blood - Peripheral Venous Blood Culture - Preliminary NO GROWTH OBTAINED AFTER 96 HOURS, INCUBATION TO CONTINUE FOR 1 DAYS. 10/26/18 18:16 Toe - Right Hallux Gram Stain - Final 10/26/18 18:16 Toe - Right Hallux Wound Culture - Final Escherichia Coli Esbl [employer] Enterococcus Faecalis Diphtheroid/Corynebacterium 10/26/18 18:48 Blood - Peripheral Venous Blood Culture - Preliminary Pending Organism 10/27/18 10/27/18 10/27/18 05:30 05:30 05:30 ESR 101 H Hemoglobin A1c % 9.3 H C-Reactive Protein 6.1 H Random Vancomycin 10/28/18 06:30 ESR Hemoglobin A1c % C-Reactive Protein Random Vancomycin 16.7 L vanco trough 12 a/p strep bacteremia- now identified at strep mitis- repeat blood culture negative suspect this is all from the toe abscess osteo of the right big toe-s/p debridement poorly controlled DM CKD plan outpt ertapenem- papers filled out and given to d/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
[2018-11-01] MEDS: TAMSULOSIN HCL 0.4 MG CAP PO SCH (22:38)
[2018-11-01] MEDS: ROSUVASTATIN CA 20 MG TABLET (FP) PO SCH (22:38)
--- NOTE | 2018-11-02 00:30 | PN ---
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: has remained less hungry,anxious about foot infection Current Active Problems Acute kidney injury superimposed on CKD (Acute) Bacteremia (Acute) Diabetes mellitus, insulin dependent (IDDM), uncontrolled (Acute) HTN (hypertension) (Acute) Osteomyelitis (Acute) Wound cellulitis (Acute) Abnormal Lab Results 11/01/18 06:00 Anion Gap 6 L BUN 34 H Creatinine 1.6 H Random Glucose 110 H AST 92 H ALT 125 H Albumin 2.8 L Laboratory Results - last 24 hr 10/29/18 11/01/18 11/01/18 21:50 06:00 06:00 WBC 7.5 RBC 4.53 Hgb 12.8 Hct 38.6 MCV 85.3 MCH 28.3 MCHC 33.2 RDW 15.8 Plt Count 221 MPV 9.1 Sodium 137 Potassium 4.4 Chloride 105 Carbon Dioxide 26 Anion Gap 6 L BUN 34 H Creatinine 1.6 H Creat Clearance w eGFR 43.33 POC Glucometer 205 Random Glucose 110 H Calcium 8.9 Total Bilirubin 0.2 AST 92 H ALT 125 H Alkaline Phosphatase 66 Total Protein 7.6 Albumin 2.8 L 11/01/18 11/01/18 11/01/18 06:23 11:24 17:12 WBC RBC Hgb Hct MCV MCH MCHC RDW Plt Count MPV Sodium Potassium Chloride Carbon Dioxide Anion Gap BUN Creatinine Creat Clearance w eGFR POC Glucometer 100 300 191 Random Glucose Calcium Total Bilirubin AST ALT Alkaline Phosphatase Total Protein Albumin 11/01/18 22:36 WBC RBC Hgb Hct MCV MCH MCHC RDW Plt Count MPV Sodium Potassium Chloride Carbon Dioxide Anion Gap BUN Creatinine Creat Clearance w eGFR POC Glucometer 161 Random Glucose Calcium Total Bilirubin AST ALT Alkaline Phosphatase Total Protein Albumin plan: bgm qid novolog scale levemir 60 am levemir 10 hs wound care /iv antibiotic therapy Problem List - Problems (1) Acute kidney injury superimposed on CKD Code(s): N17.9 - ACUTE KIDNEY FAILURE, UNSPECIFIED; N18.9 - CHRONIC KIDNEY DISEASE, UNSPECIFIED (2) Bacteremia Code(s): R78.81 - BACTEREMIA (3) Diabetes mellitus, insulin dependent (IDDM), uncontrolled Code(s): E10.65 - TYPE 1 DIABETES MELLITUS WITH HYPERGLYCEMIA Qualifiers: Glycemic state: with hyperglycemia Qualified Code(s): E10.65 - Type 1 diabetes mellitus with hyperglycemia (4) HTN (hypertension) Code(s): I10 - ESSENTIAL (PRIMARY) HYPERTENSION Qualifiers: Hypertension type: unspecified Qualified Code(s): I10 - Essential (primary ) hypertension (5) Osteomyelitis Code(s): M86.9 - OSTEOMYELITIS, UNSPECIFIED (6) Wound cellulitis Code(s): L03.90 - CELLULITIS, UNSPECIFIED (7) FRANKI (acute kidney injury) Code(s): N17.9 - ACUTE KIDNEY FAILURE, UNSPECIFIED
[2018-11-02] MEDS: INSULIN SLIDING SCALE (NOVOLOG) 1 VIAL SQ SCH ×3 (06:08→16:28)
[2018-11-02] MEDS: INSULIN (LEVEMIR) 100 UNITS/ML UNITS SQ SCH (06:09)
[2018-11-02 07:32] LABS: ALBUMIN 2.8 g/dl (3.4-5.0); ALK PHOS 61 U/L (45-117); ANION GAP 7 MMOL/L (8-16); BILIRUBIN,TOTAL 0.2 mg/dL (0.2-1); BLOOD UREA NITROGEN 42 mg/dL (7-18); CALCIUM 8.6 mg/dL (8.5-10.1); CHLORIDE 106 mmol/L (98-107); CO2 25 mmol/L (21-32); CREATININE 1.7 mg/dL (0.55-1.3); GLUCOSE,RANDOM 112 mg/dL (74-106); POTASSIUM 4.9 mmol/L (3.5-5.1); SGOT/AST 68 U/L (15-37); SGPT/ALT 115 U/L (13-61); SODIUM 138 mmol/L (136-145); TOT PROT 6.9 g/dl (6.4-8.2)
[2018-11-02] MEDS: CLOPIDOGREL BISULFATE 75 MG TABLET (FP) PO SCH (09:23)
[2018-11-02] MEDS: amLODIPine BESYLATE 10 MG TABLET (FP) PO SCH (09:23)
[2018-11-02] MEDS: ASPIRIN 81 MG CHEWABLE TABLETS PO SCH (09:23)
[2018-11-02] MEDS: LISINOPRIL 5 MG TABLET (FP) PO SCH (09:23)
[2018-11-02] MEDS: COLLAGENASE CLOSTRIDIUM HIST. 30 GRAMS TUBE TP SCH (09:23)
[2018-11-02] MEDS: ERTAPENEM SODIUM 1 GM in SODIUM CHLORIDE 50 ML IVPB SCH (10:02)
[2018-11-02] MEDS: HEPARIN NA (PORCINE) 5,000 UNITS/ML 1ML VIAL SQ SCH (10:02)
--- NOTE | 2018-11-02 10:24 | PN ---
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: Pt seen in bed. vss, +improved wound right and left great toe wounds om grade3 wound right grade 1-2 left IVABX. Santyl dressing change Awaiting PICC line. Will follow. Will go home with IVABX and follow up in wound care or private practice.
--- NOTE | 2018-11-02 11:27 | PN ---
Progress Note, Physician Chief Complaint: Diabetic foot ulcer History of Present Illness: NAD self ambulatory Uncontrolled diabetic denies pain On IV abx - Current Medication List Current Medications: Active Medications Acetaminophen (Tylenol -) 650 mg PO Q4H PRN PRN Reason: PAIN OR FEVER Amlodipine Besylate (Norvasc -) 10 mg PO DAILY [facility] Last Admin: 11/02/18 09:23 Dose: 10 mg Aspirin (Asa -) 81 mg PO DAILY [facility] Last Admin: 11/02/18 09:23 Dose: 81 mg Clopidogrel Bisulfate (Plavix -) 75 mg PO DAILY [facility] Last Admin: 11/02/18 09:23 Dose: 75 mg Collagenase (Santyl -) 1 applic TP DAILY [facility]; Protocol Last Admin: 11/02/18 09:23 Dose: 1 applic Heparin Sodium (Porcine) (Heparin -) 5,000 unit SQ BID [facility] Last Admin: 11/02/18 10:02 Dose: Not Given Ertapenem 1 gm/ Sodium (Chloride) 50 mls @ 100 mls/hr IVPB DAILY [facility] Last Admin: 11/02/18 10:02 Dose: 100 mls/hr Insulin Aspart (Novolog Vial Sliding Scale -) 1 vial SQ [facility]; Protocol Last Admin: 11/02/18 11:13 Dose: 7 units Insulin Detemir (Levemir Vial) 60 units SQ DAILY@0700 [facility] Last Admin: 11/02/18 06:09 Dose: 60 units Insulin Detemir (Levemir Vial) 10 units SQ [facility] Lisinopril (Prinivil) 5 mg PO BID [facility] Last Admin: 11/02/18 09:23 Dose: 5 mg Rosuvastatin Calcium (Crestor -) 40 mg PO [facility] Last Admin: 11/01/18 22:38 Dose: 40 mg Tamsulosin HCl (Flomax -) 0.4 mg PO [facility] Last Admin: 11/01/18 22:38 Dose: 0.4 mg - Objective Vital Signs: Vital Signs Temperature 99 F 11/02/18 10:00 Pulse Rate 90 11/02/18 10:00 Respiratory Rate 18 11/02/18 10:00 Blood Pressure 128/76 11/02/18 10:00 O2 Sat by Pulse Oximetry (%) 96 11/01/18 21:00 Constitutional: Yes: Well Nourished, No Distress, Calm Cardiovascular: Yes: Regular Rate and Rhythm Respiratory: Yes: Regular Gastrointestinal: Yes: WNL Genitourinary: Yes: WNL Musculoskeletal: Yes: WNL Extremities: Yes: WNL Edema: No Peripheral Pulses WNL: Yes Wound/Incision: Yes: Dressing Dry and Intact Neurological: Yes: Alert, Oriented Psychiatric: Yes: Alert, Oriented Labs: CBC, BMP 11/01/18 06:00 11/02/18 06:00 Problem List - Problems (1) Diabetes mellitus, insulin dependent (IDDM), uncontrolled Assessment/Plan: -BGM AC HS -Insulin: novolog sliding scale and Levemir 50 U QAM -A1c at 9.3 -Diabetic low sodium diet -Endocrinology consult -RD consult Code(s): E10.65 - TYPE 1 DIABETES MELLITUS WITH HYPERGLYCEMIA Qualifiers: Glycemic state: with hyperglycemia Qualified Code(s): E10.65 - Type 1 diabetes mellitus with hyperglycemia (2) HTN (hypertension) Assessment/Plan: -Continue amlodipine and lisinopril Code(s): I10 - ESSENTIAL (PRIMARY) HYPERTENSION Qualifiers: Hypertension type: unspecified Qualified Code(s): I10 - Essential (primary ) hypertension (3) FRANKI (acute kidney injury) Assessment/Plan: -Monitor Cr -Nephrology consult Code(s): N17.9 - ACUTE KIDNEY FAILURE, UNSPECIFIED (4) CAD (coronary artery disease) Assessment/Plan: -On asa, statin, plavix Code(s): I25.10 - ATHSCL HEART DISEASE OF [place] CORONARY ARTERY W/O ANG PCTRS (5) Foot ulcer due to secondary DM Assessment/Plan: -Podiatry and ID consult -Tunnel cath today -will come to [facility] daily for ertapenem -afebrile now -Leukocytosis improving -ESR/CRP elevated -MRI of RLE performed and shows very charachteristic finding of osteomyelitis of the proximal and distal phalanges of the great toe with a perifocal soft tissue swelling compatible with cellulitis with possibility of evolving subcutaneous abscess -vascular consult Code(s): E13.621 - OTHER SPECIFIED DIABETES MELLITUS WITH FOOT ULCER; L97.509 - NON-PRESSURE CHRONIC ULCER OTH PRT UNSP FOOT W UNSP SEVERITY Assessment/Plan see problem list
--- NOTE | 2018-11-02 11:29 | DS ---
Physical Examination Vital Signs: Vital Signs Temperature 99 F 11/02/18 10:00 Pulse Rate 90 11/02/18 10:00 Respiratory Rate 18 11/02/18 10:00 Blood Pressure 128/76 11/02/18 10:00 O2 Sat by Pulse Oximetry (%) 96 11/01/18 21:00 Findings/Remarks: 68-year-old man with uncontrolled DM for at leat 15 years , neohropathy, retinopathy?, c/o right hallux pain and bloody discharge, fevers, chills for the past 2 days. He was urged by his friend to come to hospital to seek medical attention. S/p vancomycin and zosyn in ER. Constitutional: Yes: Well Nourished, No Distress, Calm Cardiovascular: Yes: Regular Rate and Rhythm Respiratory: Yes: Regular Gastrointestinal: Yes: Normal Bowel Sounds, Soft Musculoskeletal: Yes: WNL Extremities: Yes: WNL Edema: No Peripheral Pulses WNL: Yes Wound/Incision: Yes: Dressing Dry and Intact (RLE) Neurological: Yes: Alert, Oriented Psychiatric: Yes: Alert, Oriented Labs: CBC, BMP 11/01/18 06:00 11/02/18 06:00 Discharge Summary Reason For Visit: WOUND CELLULITIS, UNCONTROLLED DIABETES MELLITUS Current Active Problems Acute kidney injury superimposed on CKD (Acute) Bacteremia (Acute) Diabetes mellitus, insulin dependent (IDDM), uncontrolled (Acute) HTN (hypertension) (Acute) Osteomyelitis (Acute) Wound cellulitis (Acute) Hospital Course: Laboratory Last Values WBC 7.5 K/mm3 (4.0-10.0) 11/01/18 06:00 RBC 4.53 M/mm3 (4.00-5.60) 11/01/18 06:00 Hgb 12.8 GM/dL (11.7-16.9) 11/01/18 06:00 Hct 38.6 % (35.4-49) 11/01/18 06:00 MCV 85.3 fl (80-96) 11/01/18 06:00 MCH 28.3 pg (25.7-33.7) 11/01/18 06:00 MCHC 33.2 g/dl (32.0-35.9) 11/01/18 06:00 RDW 15.8 % (11.9-15.9) 11/01/18 06:00 Plt Count 221 K/MM3 (134-434) 11/01/18 06:00 MPV 9.1 fl (7.5-11.1) 11/01/18 06:00 Absolute Neuts (auto) 6.1 K/mm3 (1.5-8.0) 10/28/18 06:30 Total Counted 100 10/26/18 16:15 Neutrophils % 77.0 % (42.8-82.8) 10/28/18 06:30 Neutrophils % (Manual) 89.0 % (42.8-82.8) H 10/26/18 16:15 Band Neutrophils % 1.0 % 10/26/18 16:15 Lymphocytes % 8.7 % (8-40) D 10/28/18 06:30 Lymphocytes % (Manual) 3.0 % (8-40) L 10/26/18 16:15 Monocytes % 11.5 % (3.8-10.2) H D 10/28/18 06:30 Monocytes % (Manual) 6 % (3.8-10.2) 10/26/18 16:15 Eosinophils % 1.9 % (0-4.5) D 10/28/18 06:30 Eosinophils % (Manual) 1.0 % (0-4.5) 10/26/18 16:15 Basophils % 0.9 % (0-2.0) 10/28/18 06:30 Nucleated RBC % 0 % (0-0) 10/28/18 06:30 Differential Comment Man diff performed 10/26/18 16:15 Platelet Estimate Adequate 10/26/18 16:15 Platelet Comment 10/26/18 16:15 ESR 82 mm/hr (0-20) H 11/02/18 06:00 Sodium 138 mmol/L (136-145) 11/02/18 06:00 Potassium 4.9 mmol/L (3.5-5.1) 11/02/18 06:00 Chloride 106 mmol/L (98-107) 11/02/18 06:00 Carbon Dioxide 25 mmol/L (21-32) 11/02/18 06:00 Anion Gap 7 MMOL/L (8-16) L 11/02/18 06:00 BUN 42 mg/dL (7-18) H 11/02/18 06:00 Creatinine 1.7 mg/dL (0.55-1.3) H 11/02/18 06:00 Creat Clearance w eGFR 40.40 (>60) 11/02/18 06:00 POC Glucometer 177 UNITS (80-120) 11/02/18 11:12 Random Glucose 112 mg/dL (74-106) H 11/02/18 06:00 Hemoglobin A1c % 9.3 % (4.2-6.3) H 10/30/18 06:30 Lactic Acid 1.3 mmol/L (0.4-2.0) 10/26/18 16:16 Calcium 8.6 mg/dL (8.5-10.1) 11/02/18 06:00 Total Bilirubin 0.2 mg/dL (0.2-1) 11/02/18 06:00 AST 68 U/L (15-37) H 11/02/18 06:00 ALT 115 U/L (13-61) H 11/02/18 06:00 Alkaline Phosphatase 61 U/L (45-117) 11/02/18 06:00 C-Reactive Protein 0.3 MG/DL (0.00-0.3) 11/02/18 06:00 Total Protein 6.9 g/dl (6.4-8.2) 11/02/18 06:00 Albumin 2.8 g/dl (3.4-5.0) L 11/02/18 06:00 Triglycerides 161 mg/dL (0-150) H 10/28/18 06:30 Cholesterol 240 mg/dL (50-200) H 10/28/18 06:30 Total LDL Cholesterol 163 mg/dL (5-100) H 10/28/18 06:30 HDL Cholesterol 45 mg/dL (40-60) 10/28/18 06:30 Random Vancomycin 12.0 ug/ml (18-26) L 10/31/18 06:20 Microbiology 10/26/18 16:16 Blood - Peripheral Venous Blood Culture - Final Streptococcus Mitis 10/28/18 06:25 Blood - Peripheral Venous Blood Culture - Final NO GROWTH AFTER 5 DAYS INCUBATION 10/28/18 06:30 Blood - Peripheral Venous Blood Culture - Final NO GROWTH AFTER 5 DAYS INCUBATION 10/26/18 18:16 Toe - Right Hallux Gram Stain - Final 10/26/18 18:16 Toe - Right Hallux Wound Culture - Final Escherichia Coli Esbl Brim Flexer Enterococcus Faecalis Diphtheroid/Corynebacterium 10/26/18 18:48 Blood - Peripheral Venous Blood Culture - Preliminary Pending Organism Condition: Stable - Instructions Disposition: VNS/HOME HEALTH CARE - Home Medications Comprehensive Discharge Medication List: Ambulatory Orders Aspirin [ASA -] 81 mg PO DAILY 07/19/16 Clopidogrel Bisulfate [Plavix -] 75 mg PO DAILY 07/19/16 Rosuvastatin [Crestor -] 40 mg PO DAILY 07/19/16 Tamsulosin HCl [Flomax] 0.4 mg PO HS #7 cap.er.24h 06/07/17 Amlodipine Besylate [Norvasc -] 10 mg PO DAILY tablet 12/29/17 Insulin Sliding Scale [Novolog Vial Sliding Scale -] 1 vial SQ TIDAC units Insulin (Levemir) [Levemir Vial] 50 units SQ AM 03/12/18 Lisinopril [Prinivil] 5 mg PO BID 03/12/18 Amoxicillin - [Amoxicillin 500mg Capsule -] 500 mg PO TID 14 Days #60 capsule MDD 3 05/10/18 Collagenase Clostridium Hist. [Santyl -] 1 applic TP DAILY #1 tube 05/10/18
[2018-11-02 13:48] VITALS: PULSE 101; TEMP 97.9
--- NOTE | 2018-11-02 16:38 | PN ---
Progress Note, Physician History of Present Illness: Pt seen and examined at bedside. He is awake and alert. He denies dysuria. - Current Medication List Current Medications: Active Medications Acetaminophen (Tylenol -) 650 mg PO Q4H PRN PRN Reason: PAIN OR FEVER Amlodipine Besylate (Norvasc -) 10 mg PO DAILY [facility] Last Admin: 11/02/18 09:23 Dose: 10 mg Aspirin (Asa -) 81 mg PO DAILY [facility] Last Admin: 11/02/18 09:23 Dose: 81 mg Clopidogrel Bisulfate (Plavix -) 75 mg PO DAILY [facility] Last Admin: 11/02/18 09:23 Dose: 75 mg Collagenase (Santyl -) 1 applic TP DAILY [facility]; Protocol Last Admin: 11/02/18 09:23 Dose: 1 applic Heparin Sodium (Porcine) (Heparin -) 5,000 unit SQ BID [facility] Last Admin: 11/02/18 10:02 Dose: Not Given Ertapenem 1 gm/ Sodium (Chloride) 50 mls @ 100 mls/hr IVPB DAILY [facility] Last Admin: 11/02/18 10:02 Dose: 100 mls/hr Insulin Aspart (Novolog Vial Sliding Scale -) 1 vial SQ ACHS [facility]; Protocol Last Admin: 11/02/18 16:28 Dose: 7 units Insulin Detemir (Levemir Vial) 60 units SQ DAILY@0700 [facility] Last Admin: 11/02/18 06:09 Dose: 60 units Insulin Detemir (Levemir Vial) 10 units SQ [facility] Lisinopril (Prinivil) 5 mg PO BID [facility] Last Admin: 11/02/18 09:23 Dose: 5 mg Rosuvastatin Calcium (Crestor -) 40 mg PO [facility] Last Admin: 11/01/18 22:38 Dose: 40 mg Tamsulosin HCl (Flomax -) 0.4 mg PO HS [facility] Last Admin: 11/01/18 22:38 Dose: 0.4 mg - Objective Vital Signs: Vital Signs Temperature 97.9 F 11/02/18 13:46 Pulse Rate 101 H 11/02/18 13:46 Respiratory Rate 18 11/02/18 13:46 Blood Pressure 117/70 11/02/18 13:46 O2 Sat by Pulse Oximetry (%) 97 11/02/18 09:00 Constitutional: Yes: Calm Eyes: Yes: Conjunctiva Clear HENT: Yes: Atraumatic Neck: Yes: Supple Cardiovascular: Yes: S1, S2 Respiratory: Yes: CTA Bilaterally Gastrointestinal: Yes: Normal Bowel Sounds, Soft Genitourinary: Yes: WNL Edema: No Neurological: Yes: Oriented Psychiatric: Yes: Oriented Labs: CBC, BMP 11/01/18 06:00 11/02/18 06:00 Problem List - Problems (1) Acute kidney injury superimposed on CKD Code(s): N17.9 - ACUTE KIDNEY FAILURE, UNSPECIFIED; N18.9 - CHRONIC KIDNEY DISEASE, UNSPECIFIED (2) Diabetes mellitus, insulin dependent (IDDM), uncontrolled Code(s): E10.65 - TYPE 1 DIABETES MELLITUS WITH HYPERGLYCEMIA Qualifiers: Glycemic state: with hyperglycemia Qualified Code(s): E10.65 - Type 1 diabetes mellitus with hyperglycemia (3) HTN (hypertension) Code(s): I10 - ESSENTIAL (PRIMARY) HYPERTENSION Qualifiers: Hypertension type: unspecified Qualified Code(s): I10 - Essential (primary ) hypertension Assessment/Plan Current Medications Generic Name Dose Route Start Last Admin Trade Name Freq PRN Reason Stop Dose Admin Acetaminophen 650 mg 10/27/18 11:27 Tylenol - PO Q4H PRN PAIN OR FEVER Amlodipine Besylate 10 mg 10/27/18 10:00 11/02/18 09:23 Norvasc - PO 10 mg DAILY [facility] Administration Aspirin 81 mg 10/27/18 10:00 11/02/18 09:23 Asa - PO 81 mg DAILY [facility] Administration Clopidogrel Bisulfate 75 mg 10/27/18 10:00 11/02/18 09:23 Plavix - PO 75 mg DAILY [facility] Administration Collagenase 1 applic 11/01/18 12:30 11/02/18 09:23 Santyl - TP 1 applic DAILY [facility] Administration Protocol Heparin Sodium (Porcine) 5,000 unit 10/26/18 22:00 11/02/18 10:02 Heparin - SQ Not Given BID [facility] Ertapenem 1 gm/ Sodium 50 mls @ 100 mls/hr 10/30/18 14:45 11/02/18 10:02 Chloride IVPB 100 mls/hr DAILY [facility] Administration Insulin Aspart 1 vial 10/30/18 23:55 11/02/18 16:28 Novolog Vial Sliding Scale - SQ 7 units ACHS [facility] Administration Protocol Insulin Detemir 60 units 10/30/18 23:58 11/02/18 06:09 Levemir Vial SQ 60 units DAILY@0700 [facility] Administration Insulin Detemir 10 units 11/02/18 22:00 Levemir Vial SQ HS [facility] Lisinopril 5 mg 10/26/18 22:00 11/02/18 09:23 Prinivil PO 5 mg BID [facility] Administration Rosuvastatin Calcium 40 mg 10/27/18 22:00 11/01/18 22:38 Crestor - PO 40 mg HS [facility] Administration Tamsulosin HCl 0.4 mg 10/26/18 22:00 11/01/18 22:38 Flomax - PO 0.4 mg HS [facility] Administration Impression 1. CKD 2. DM 3. HTN 4. DFU 5. HLD 6. BPH 7. osteo 8. proteinuria 9. FRANKI Plan - will see pt in office for follow up - avoid nsaids - abx per primary team - avoid nephrotoxins - cont mal
[2018-11-02 17:36] VITALS: BP 128/78
[2018-11-02] MEDS ORDERED: INSULIN (LEVEMIR) 100 UNITS/ML UNITS SQ SCH (22:00)
== END 2018-11-02 18:50 | disposition home or self-care (01) | DRG 623 ==
LOC: JER 15:53 → JERBED 20:23 → J7W 10-27 01:21
PROVIDERS: ADMIT Internal Medicine; ATTEND Family Medicine
PROC: 0JBQ0ZZ Excision of Right Foot Subcutaneous Tissue and Fascia, Open Approach (ICD-10-PCS; principal; 2018-10-30)
PROC: 0HBRXZZ Excision of Toe Nail, External Approach (ICD-10-PCS; 2018-10-31)
PROC: 0HBRXZZ Excision of Toe Nail, External Approach (ICD-10-PCS; 2018-10-31)
PROC: 0HBRXZZ Excision of Toe Nail, External Approach (ICD-10-PCS; 2018-10-31)
PROC: 0HBRXZZ Excision of Toe Nail, External Approach (ICD-10-PCS; 2018-10-31)
PROC: 0HBRXZZ Excision of Toe Nail, External Approach (ICD-10-PCS; 2018-10-31)
PROC: 0HBRXZZ Excision of Toe Nail, External Approach (ICD-10-PCS; 2018-10-31)
PROC: 0HBRXZZ Excision of Toe Nail, External Approach (ICD-10-PCS; 2018-10-31)
PROC: 0HBRXZZ Excision of Toe Nail, External Approach (ICD-10-PCS; 2018-10-31)
PROC: 0HBRXZZ Excision of Toe Nail, External Approach (ICD-10-PCS; 2018-10-31)
PROC: 0HBRXZZ Excision of Toe Nail, External Approach (ICD-10-PCS; 2018-10-31)
PROC: 02HV33Z Insertion of Infusion Device into Superior Vena Cava, Percutaneous Approach (ICD-10-PCS; 2018-11-02)
PROC: B518ZZA Fluoroscopy of Superior Vena Cava, Guidance (ICD-10-PCS; 2018-11-02)
DX: E11.628 Type 2 diabetes mellitus with other skin complications (principal); M86.9 Osteomyelitis, unspecified; R78.81 Bacteremia; L02.611 Cutaneous abscess of right foot; M84.48XA Pathological fracture, other site, initial encounter for fracture; E11.621 Type 2 diabetes mellitus with foot ulcer; I10 Essential (primary) hypertension; E11.65 Type 2 diabetes mellitus with hyperglycemia; I25.10 Atherosclerotic heart disease of native coronary artery without angina pectoris; I12.9 Hypertensive chronic kidney disease with stage 1 through stage 4 chronic kidney disease, or unspecified chronic kidney disease; E11.22 Type 2 diabetes mellitus with diabetic chronic kidney disease; N18.9 Chronic kidney disease, unspecified; N17.9 Acute kidney failure, unspecified; E78.5 Hyperlipidemia, unspecified; N40.0 Benign prostatic hyperplasia without lower urinary tract symptoms; L03.031 Cellulitis of right toe; G43.909 Migraine, unspecified, not intractable, without status migrainosus; K21.9 Gastro-esophageal reflux disease without esophagitis; I25.2 Old myocardial infarction; L08.9 Local infection of the skin and subcutaneous tissue, unspecified; R80.9 Proteinuria, unspecified; E11.69 Type 2 diabetes mellitus with other specified complication; D72.829 Elevated white blood cell count, unspecified; B35.1 Tinea unguium; B95.4 Other streptococcus as the cause of diseases classified elsewhere; B96.20 Unspecified Escherichia coli [E. coli] as the cause of diseases classified elsewhere; B95.2 Enterococcus as the cause of diseases classified elsewhere; Z87.891 Personal history of nicotine dependence; Z95.1 Presence of aortocoronary bypass graft
CPT/HCPCS: 36415; 36558; 71046-TC-FY; 73630-TC-LT; 73630-TC-RT-FY; 73718-TC-RT; 76775-TC; 77001-TC-FY; 80048; 80053; 80061; 82962; 83036; 83605; 83721; 85025; 85027; 85651; 86140; 87040; 87070; 87077; 87186; 87205; 93005; 93010; 93306-TC; 99284-25; C1751; G0480; J0131; J1644

== ENCOUNTER 2018-11-03 09:08 | Day surgery (SDC) | payer OTHER ==
[2018-11-03] MEDS ORDERED: ERTAPENEM SODIUM 1 GM VIAL ONE (09:28)
[2018-11-03 09:59] VITALS: TEMP 98.2
[2018-11-03] MEDS ORDERED: ERTAPENEM SODIUM 1 GM in SODIUM CHLORIDE 50 ML IVPB ONE (10:00)
[2018-11-03 10:28] VITALS: BP 163/81; PULSE 98
== END 2018-11-03 10:29 | disposition home or self-care (01) ==
LOC: JINFUSION 09:08
PROVIDERS: ATTEND Internal Medicine
DX: E11.621 Type 2 diabetes mellitus with foot ulcer (principal); M86.9 Osteomyelitis, unspecified; L02.611 Cutaneous abscess of right foot; R78.81 Bacteremia
CPT/HCPCS: 96365

== ENCOUNTER 2018-11-04 09:17 | Day surgery (SDC) | payer OTHER ==
[~2018-11-04 09:17] MED LIST: ERTAPENEM SODIUM 1 GM in SODIUM CHLORIDE 50 ML IVPB ONE
[2018-11-04 09:53] VITALS: TEMP 97.9
[2018-11-04 10:31] VITALS: BP 133/66; PULSE 78
== END 2018-11-04 10:20 | disposition home or self-care (01) ==
LOC: JINFUSION 09:17
PROVIDERS: ATTEND Internal Medicine
DX: E11.621 Type 2 diabetes mellitus with foot ulcer (principal); L02.611 Cutaneous abscess of right foot; B95.4 Other streptococcus as the cause of diseases classified elsewhere; M86.9 Osteomyelitis, unspecified; R78.81 Bacteremia
CPT/HCPCS: 96365

== ENCOUNTER 2018-11-05 09:40 | Day surgery (SDC) | payer OTHER ==
[2018-11-05 11:04] VITALS: TEMP 97.9
[2018-11-05 11:15] VITALS: BP 156/85; PULSE 75
== END 2018-11-05 11:17 | disposition home or self-care (01) ==
LOC: JINFUSION 09:40
PROVIDERS: ATTEND Internal Medicine
DX: E11.621 Type 2 diabetes mellitus with foot ulcer (principal); L02.611 Cutaneous abscess of right foot; B95.4 Other streptococcus as the cause of diseases classified elsewhere; M86.9 Osteomyelitis, unspecified; R78.81 Bacteremia
CPT/HCPCS: 96365

== ENCOUNTER 2018-11-06 08:51 | Day surgery (SDC) | payer OTHER ==
[2018-11-06] MEDS ORDERED: ERTAPENEM SODIUM 1 GM in SODIUM CHLORIDE 50 ML IVPB ONE (09:15)
[2018-11-06 13:04] VITALS: BP 168/72; PULSE 77; TEMP 98
== END 2018-11-06 11:15 | disposition home or self-care (01) ==
LOC: J7W 08:51 → JINFUSION 08:51
PROVIDERS: ATTEND Internal Medicine
DX: E11.621 Type 2 diabetes mellitus with foot ulcer (principal); L02.611 Cutaneous abscess of right foot; B95.4 Other streptococcus as the cause of diseases classified elsewhere; M86.9 Osteomyelitis, unspecified; R78.81 Bacteremia
CPT/HCPCS: 96365

== ENCOUNTER 2018-11-07 09:08 | Day surgery (SDC) | payer OTHER ==
[2018-11-07] MEDS ORDERED: ERTAPENEM SODIUM 1 GM in SODIUM CHLORIDE 50 ML IVPB ONE (10:00)
[2018-11-07 11:29] VITALS: BP 122/74; PULSE 73; TEMP 97.9
== END 2018-11-07 10:50 | disposition home or self-care (01) ==
LOC: JINFUSION 09:08 → J7W 09:09 → JINFUSION 10:50
PROVIDERS: ATTEND Internal Medicine
DX: E11.621 Type 2 diabetes mellitus with foot ulcer (principal); L02.611 Cutaneous abscess of right foot; B95.4 Other streptococcus as the cause of diseases classified elsewhere; M86.9 Osteomyelitis, unspecified; R78.81 Bacteremia
CPT/HCPCS: 96365

== ENCOUNTER 2018-11-08 09:07 | Day surgery (SDC) | payer OTHER ==
[2018-11-08 09:55] LABS: HEMATOCRIT 36.9 % (35.4-49); HEMOGLOBIN 11.9 GM/dL (11.7-16.9); MCH 27.8 pg (25.7-33.7); MCHC 32.3 g/dl (32.0-35.9); MEAN PLT VOLUME 10.1 fl (7.5-11.1); PLATELET COUNT 235 K/MM3 (134-434); RBC 4.29 M/mm3 (4.00-5.60); RDW 16.3 % (11.9-15.9); WHITE BLOOD COUNT 12.2 K/mm3 (4.0-10.0)
[2018-11-08 10:21] VITALS: TEMP 98
[2018-11-08 10:32] VITALS: BP 144/70; PULSE 62
[2018-11-08 10:35] LABS: ALBUMIN 3.3 g/dl (3.4-5.0); ALK PHOS 74 U/L (45-117); ANION GAP 11 MMOL/L (8-16); BILIRUBIN,TOTAL 0.4 mg/dL (0.2-1); BLOOD UREA NITROGEN 62 mg/dL (7-18); CALCIUM 8.9 mg/dL (8.5-10.1); CHLORIDE 102 mmol/L (98-107); CO2 23 mmol/L (21-32); CREATININE 1.9 mg/dL (0.55-1.3); GLUCOSE,RANDOM 197 mg/dL (74-106); POTASSIUM 5.4 mmol/L (3.5-5.1); SGOT/AST 30 U/L (15-37); SGPT/ALT 55 U/L (13-61); SODIUM 136 mmol/L (136-145); TOT PROT 7.9 g/dl (6.4-8.2)
== END 2018-11-08 10:33 | disposition home or self-care (01) ==
LOC: JINFUSION 09:07
PROVIDERS: ATTEND Internal Medicine
DX: E11.621 Type 2 diabetes mellitus with foot ulcer (principal); L02.611 Cutaneous abscess of right foot; B95.4 Other streptococcus as the cause of diseases classified elsewhere; M86.9 Osteomyelitis, unspecified; R78.81 Bacteremia
CPT/HCPCS: 36415; 80053; 85027; 96365

== ENCOUNTER 2018-11-09 09:22 | Day surgery (SDC) | payer OTHER ==
[2018-11-09 09:55] VITALS: BP 149/75; PULSE 77; TEMP 98.4
== END 2018-11-09 10:22 | disposition home or self-care (01) ==
LOC: JINFUSION 09:22
PROVIDERS: ATTEND Internal Medicine
DX: E11.621 Type 2 diabetes mellitus with foot ulcer (principal); L02.611 Cutaneous abscess of right foot; B95.4 Other streptococcus as the cause of diseases classified elsewhere; M86.9 Osteomyelitis, unspecified; R78.81 Bacteremia
CPT/HCPCS: 96365

== ENCOUNTER 2018-11-10 09:47 | Day surgery (SDC) | payer OTHER ==
[2018-11-10 10:28] VITALS: TEMP 98
[2018-11-10 11:05] VITALS: BP 141/76; PULSE 68
== END 2018-11-10 10:55 | disposition home or self-care (01) ==
LOC: JINFUSION 09:47
PROVIDERS: ATTEND Internal Medicine
DX: E11.621 Type 2 diabetes mellitus with foot ulcer (principal); L02.611 Cutaneous abscess of right foot; B95.4 Other streptococcus as the cause of diseases classified elsewhere; M86.9 Osteomyelitis, unspecified; R78.81 Bacteremia
CPT/HCPCS: 96365

== ENCOUNTER 2018-11-11 09:07 | Day surgery (SDC) | payer OTHER ==
[2018-11-11 10:01] VITALS: TEMP 97.9
[2018-11-11 13:43] VITALS: BP 152/62; PULSE 58
== END 2018-11-11 10:00 | disposition home or self-care (01) ==
LOC: JINFUSION 09:07
PROVIDERS: ATTEND Internal Medicine
DX: E11.621 Type 2 diabetes mellitus with foot ulcer (principal); L02.611 Cutaneous abscess of right foot; B95.4 Other streptococcus as the cause of diseases classified elsewhere; M86.9 Osteomyelitis, unspecified; R78.81 Bacteremia
CPT/HCPCS: 96365

== ENCOUNTER 2018-11-12 09:18 | Day surgery (SDC) | payer OTHER ==
[2018-11-12 10:19] VITALS: TEMP 98.2
[2018-11-12 10:37] VITALS: BP 162/76; PULSE 67
== END 2018-11-12 10:37 | disposition home or self-care (01) ==
LOC: JINFUSION 09:18
PROVIDERS: ATTEND Internal Medicine
DX: E11.621 Type 2 diabetes mellitus with foot ulcer (principal); L02.611 Cutaneous abscess of right foot; B95.4 Other streptococcus as the cause of diseases classified elsewhere; M86.9 Osteomyelitis, unspecified; R78.81 Bacteremia
CPT/HCPCS: 96365

== ENCOUNTER 2018-11-13 09:03 | Day surgery (SDC) | payer OTHER ==
[2018-11-13] MEDS ORDERED: ERTAPENEM SODIUM 1 GM in SODIUM CHLORIDE 50 ML IVPB ONE (09:30)
[2018-11-13 14:30] VITALS: TEMP 97.8
[2018-11-13 14:33] VITALS: BP 172/80; PULSE 66
== END 2018-11-13 11:00 | disposition home or self-care (01) ==
LOC: JINFUSION 09:03 → J7W 09:04 → JINFUSION 11:00
PROVIDERS: ATTEND Internal Medicine
DX: E11.621 Type 2 diabetes mellitus with foot ulcer (principal); L02.611 Cutaneous abscess of right foot; B95.4 Other streptococcus as the cause of diseases classified elsewhere; M86.9 Osteomyelitis, unspecified; R78.81 Bacteremia
CPT/HCPCS: 96365

== ENCOUNTER 2018-11-14 09:32 | Day surgery (SDC) | payer OTHER ==
[2018-11-14] MEDS ORDERED: ERTAPENEM SODIUM 1 GM in SODIUM CHLORIDE 50 ML IVPB ONE (09:45)
[2018-11-14 10:29] VITALS: TEMP 97.5
[2018-11-14 10:31] VITALS: BP 168/68; PULSE 59
== END 2018-11-14 12:30 | disposition home or self-care (01) ==
LOC: JINFUSION 09:32 → J7W 09:33 → JINFUSION 12:15
PROVIDERS: ATTEND Internal Medicine
DX: E11.621 Type 2 diabetes mellitus with foot ulcer (principal); L02.611 Cutaneous abscess of right foot; B95.4 Other streptococcus as the cause of diseases classified elsewhere; M86.9 Osteomyelitis, unspecified; R78.81 Bacteremia
CPT/HCPCS: 96365

== ENCOUNTER 2018-11-15 09:24 | Day surgery (SDC) | payer OTHER ==
[2018-11-15] MEDS ORDERED: ERTAPENEM SODIUM 1 GM in SODIUM CHLORIDE 50 ML IVPB ONE (10:00)
[2018-11-15 10:01] LABS: HEMATOCRIT 38.6 % (35.4-49); HEMOGLOBIN 12.4 GM/dL (11.7-16.9); MCH 27.4 pg (25.7-33.7); MEAN CELL VOLUME 85.5 fl (80-96); RBC 4.52 M/mm3 (4.00-5.60); WHITE BLOOD COUNT 9.7 K/mm3 (4.0-10.0)
[2018-11-15 10:02] LABS: MEAN PLT VOLUME 10.5 fl (7.5-11.1); PLATELET COUNT 196 K/MM3 (134-434); RDW 16.1 % (11.9-15.9)
[2018-11-15 10:13] LABS: ALBUMIN 3.3 g/dl (3.4-5.0); BILIRUBIN,TOTAL 0.3 mg/dL (0.2-1); CALCIUM 8.7 mg/dL (8.5-10.1); CREATININE 1.7 mg/dL (0.55-1.3); POTASSIUM 4.8 mmol/L (3.5-5.1); TOT PROT 7.9 g/dl (6.4-8.2)
[2018-11-15 10:16] VITALS: TEMP 97.9
[2018-11-15 11:41] VITALS: BP 159/84; PULSE 63
[2018-12-06 12:47] LABS: HEMATOCRIT 37.6 % (35.4-49); HEMOGLOBIN 12.2 GM/dL (11.7-16.9); MCH 27.7 pg (25.7-33.7); MCHC 32.4 g/dl (32.0-35.9); MEAN CELL VOLUME 85.4 fl (80-96); MEAN PLT VOLUME 10.2 fl (7.5-11.1); PLATELET COUNT 181 K/MM3 (134-434); RBC 4.41 M/mm3 (4.00-5.60); WHITE BLOOD COUNT 3.8 K/mm3 (4.0-10.0)
[2018-12-06 13:47] LABS: ALBUMIN 3.2 g/dl (3.4-5.0); BILIRUBIN,TOTAL 0.2 mg/dL (0.2-1); CALCIUM 8.7 mg/dL (8.5-10.1); CREATININE 1.9 mg/dL (0.55-1.3); POTASSIUM 5.3 mmol/L (3.5-5.1); TOT PROT 7.6 g/dl (6.4-8.2)
== END 2018-11-15 11:40 | disposition home or self-care (01) ==
LOC: JINFUSION 09:24
PROVIDERS: ATTEND Internal Medicine
DX: E11.621 Type 2 diabetes mellitus with foot ulcer (principal); L02.611 Cutaneous abscess of right foot; B95.4 Other streptococcus as the cause of diseases classified elsewhere; M86.9 Osteomyelitis, unspecified; R78.81 Bacteremia
CPT/HCPCS: 36415; 80053; 85027; 96365

== ENCOUNTER 2018-11-16 09:01 | Day surgery (SDC) | payer OTHER | END 2018-11-16 10:51 | disposition home or self-care (01) | LOC: JINFUSION 09:01 ==

== ENCOUNTER 2018-11-17 08:58 | Day surgery (SDC) | payer OTHER ==
[2018-11-17] MEDS ORDERED: ERTAPENEM SODIUM 1 GM in SODIUM CHLORIDE 50 ML IVPB ONE (09:00)
[2018-11-17 09:29] VITALS: TEMP 97.9
[2018-11-17 10:01] VITALS: BP 164/73; PULSE 58
== END 2018-11-17 10:05 | disposition home or self-care (01) ==
LOC: JINFUSION 08:58
PROVIDERS: ATTEND Internal Medicine
DX: E11.621 Type 2 diabetes mellitus with foot ulcer (principal); L02.611 Cutaneous abscess of right foot; B95.4 Other streptococcus as the cause of diseases classified elsewhere; M86.9 Osteomyelitis, unspecified; R78.81 Bacteremia
CPT/HCPCS: 96365

== ENCOUNTER 2018-11-18 09:19 | Day surgery (SDC) | payer OTHER ==
[2018-11-18 12:52] VITALS: BP 167/72; PULSE 52; TEMP 98.2
== END 2018-11-18 11:11 | disposition home or self-care (01) ==
LOC: JINFUSION 09:19
PROVIDERS: ATTEND Internal Medicine
DX: E11.621 Type 2 diabetes mellitus with foot ulcer (principal); L02.611 Cutaneous abscess of right foot; B95.4 Other streptococcus as the cause of diseases classified elsewhere; M86.9 Osteomyelitis, unspecified; R78.81 Bacteremia
CPT/HCPCS: 96365

== ENCOUNTER 2018-11-19 09:17 | Day surgery (SDC) | payer OTHER ==
[2018-11-19 15:20] VITALS: BP 158/82; PULSE 58; TEMP 98.2
== END 2018-11-19 10:22 | disposition home or self-care (01) ==
LOC: JINFUSION 09:17
PROVIDERS: ATTEND Internal Medicine
DX: E11.621 Type 2 diabetes mellitus with foot ulcer (principal); L02.611 Cutaneous abscess of right foot; B95.4 Other streptococcus as the cause of diseases classified elsewhere; M86.9 Osteomyelitis, unspecified; R78.81 Bacteremia
CPT/HCPCS: 96365

== ENCOUNTER 2018-11-20 08:57 | Day surgery (SDC) | payer OTHER ==
[2018-11-20] MEDS ORDERED: ERTAPENEM SODIUM 1 GM in SODIUM CHLORIDE 50 ML IVPB ONE (09:45)
[2018-11-20 13:22] VITALS: TEMP 98.4
[2018-11-20 13:23] VITALS: BP 155/71; PULSE 87
== END 2018-11-20 10:55 | disposition home or self-care (01) ==
LOC: JINFUSION 08:57 → J7W 09:02 → JINFUSION 10:55
PROVIDERS: ATTEND Internal Medicine
DX: E11.621 Type 2 diabetes mellitus with foot ulcer (principal); L02.611 Cutaneous abscess of right foot; B95.4 Other streptococcus as the cause of diseases classified elsewhere; M86.9 Osteomyelitis, unspecified; R78.81 Bacteremia
CPT/HCPCS: 96365

== ENCOUNTER 2018-11-21 09:16 | Day surgery (SDC) | payer OTHER ==
[2018-11-21] MEDS ORDERED: ERTAPENEM SODIUM 1 GM in SODIUM CHLORIDE 50 ML IVPB ONE (10:00)
[2018-11-21 10:32] VITALS: TEMP 98.8
[2018-11-21 10:46] VITALS: BP 135/68; PULSE 55
== END 2018-11-21 10:46 | disposition home or self-care (01) ==
LOC: JINFUSION 09:16 → J7W 09:19 → JINFUSION 10:46
PROVIDERS: ATTEND Internal Medicine
DX: E11.621 Type 2 diabetes mellitus with foot ulcer (principal); L02.611 Cutaneous abscess of right foot; B95.4 Other streptococcus as the cause of diseases classified elsewhere; M86.9 Osteomyelitis, unspecified; R78.81 Bacteremia
CPT/HCPCS: 96365

== ENCOUNTER 2018-11-22 08:29 | Day surgery (SDC) | payer OTHER ==
[2018-11-22 08:47] LABS: HEMATOCRIT 37.6 % (35.4-49); HEMOGLOBIN 12.3 GM/dL (11.7-16.9); MCH 27.7 pg (25.7-33.7); MCHC 32.8 g/dl (32.0-35.9); MEAN CELL VOLUME 84.7 fl (80-96); MEAN PLT VOLUME 9.6 fl (7.5-11.1); PLATELET COUNT 160 K/MM3 (134-434); RBC 4.44 M/mm3 (4.00-5.60); RDW 16.3 % (11.9-15.9); WHITE BLOOD COUNT 7.9 K/mm3 (4.0-10.0)
[2018-11-22] MEDS ORDERED: ERTAPENEM SODIUM 1 GM in SODIUM CHLORIDE 50 ML IVPB ONE (09:00)
[2018-11-22 09:15] LABS: ALBUMIN 3.1 g/dl (3.4-5.0); BILIRUBIN,TOTAL 0.3 mg/dL (0.2-1); CALCIUM 9.1 mg/dL (8.5-10.1); TOT PROT 7.7 g/dl (6.4-8.2)
[2018-11-22 12:54] VITALS: TEMP 97.8
[2018-11-22 12:58] VITALS: BP 167/85; PULSE 57
== END 2018-11-22 10:10 | disposition home or self-care (01) ==
LOC: JINFUSION 08:29
PROVIDERS: ATTEND Internal Medicine
DX: E11.621 Type 2 diabetes mellitus with foot ulcer (principal); L02.611 Cutaneous abscess of right foot; B95.4 Other streptococcus as the cause of diseases classified elsewhere; M86.9 Osteomyelitis, unspecified; R78.81 Bacteremia
CPT/HCPCS: 36415; 80053; 85027; 96365

== ENCOUNTER 2018-11-23 09:18 | Day surgery (SDC) | payer OTHER ==
[2018-11-23] MEDS ORDERED: ERTAPENEM SODIUM 1 GM in SODIUM CHLORIDE 50 ML IVPB ONE (10:00)
[2018-11-23 13:14] VITALS: TEMP 97.9
[2018-11-23 13:22] VITALS: BP 148/70; PULSE 56
== END 2018-11-23 10:50 | disposition home or self-care (01) ==
LOC: JINFUSION 09:18
PROVIDERS: ATTEND Internal Medicine
DX: E11.621 Type 2 diabetes mellitus with foot ulcer (principal); L02.611 Cutaneous abscess of right foot; B95.4 Other streptococcus as the cause of diseases classified elsewhere; M86.9 Osteomyelitis, unspecified; R78.81 Bacteremia
CPT/HCPCS: 96365

== ENCOUNTER 2018-11-24 09:51 | Day surgery (SDC) | payer OTHER | END 2018-11-24 11:31 | disposition home or self-care (01) | LOC: JINFUSION 09:51 ==

== ENCOUNTER 2018-11-25 09:59 | Day surgery (SDC) | payer OTHER | END 2018-11-25 11:05 | disposition home or self-care (01) | LOC: JINFUSION 09:59 ==

== ENCOUNTER 2018-11-26 09:07 | Day surgery (SDC) | payer OTHER | END 2018-11-26 10:28 | disposition home or self-care (01) | LOC: JINFUSION 09:07 ==

== ENCOUNTER 2018-11-27 09:12 | Day surgery (SDC) | payer OTHER | END 2018-11-27 12:23 | disposition home or self-care (01) | LOC: JINFUSION 09:12 → J7W 09:14 → JINFUSION 12:23 ==

== ENCOUNTER 2018-11-28 09:42 | Day surgery (SDC) | payer OTHER | END 2018-11-28 11:30 | disposition home or self-care (01) | LOC: JINFUSION 09:42 → J7W 09:44 → JINFUSION 11:30 ==

== ENCOUNTER 2018-11-29 09:19 | Day surgery (SDC) | payer OTHER ==
[2018-11-29 09:52] LABS: HEMATOCRIT 36.1 % (35.4-49); HEMOGLOBIN 11.7 GM/dL (11.7-16.9); MCH 27.6 pg (25.7-33.7); MCHC 32.5 g/dl (32.0-35.9); MEAN PLT VOLUME 9.7 fl (7.5-11.1); PLATELET COUNT 169 K/MM3 (134-434); RBC 4.25 M/mm3 (4.00-5.60); RDW 16.1 % (11.9-15.9); WHITE BLOOD COUNT 6.1 K/mm3 (4.0-10.0)
[2018-11-29] MEDS ORDERED: ERTAPENEM SODIUM 1 GM in SODIUM CHLORIDE 50 ML IVPB ONE (10:00)
[2018-11-29 10:18] LABS: ALBUMIN 3.2 g/dl (3.4-5.0); ALK PHOS 95 U/L (45-117); ANION GAP 8 MMOL/L (8-16); BILIRUBIN,TOTAL 0.3 mg/dL (0.2-1); BLOOD UREA NITROGEN 55 mg/dL (7-18); CHLORIDE 104 mmol/L (98-107); CO2 24 mmol/L (21-32); CREATININE 1.9 mg/dL (0.55-1.3); GLUCOSE,RANDOM 123 mg/dL (74-106); SGOT/AST 44 U/L (15-37); SGPT/ALT 83 U/L (13-61); SODIUM 136 mmol/L (136-145); TOT PROT 7.6 g/dl (6.4-8.2)
[2018-11-29] MEDS ORDERED: PT OWN MED DRAWER 7, Y5N ONE (10:33)
[2018-11-29 13:48] VITALS: BP 176/76; PULSE 55; TEMP 98
== END 2018-11-29 12:00 | disposition home or self-care (01) ==
LOC: JINFUSION 09:19 → J7W 09:25 → JINFUSION 12:00
PROVIDERS: ATTEND Internal Medicine
DX: E11.621 Type 2 diabetes mellitus with foot ulcer (principal); L02.611 Cutaneous abscess of right foot; B95.4 Other streptococcus as the cause of diseases classified elsewhere; M86.9 Osteomyelitis, unspecified; R78.81 Bacteremia
CPT/HCPCS: 36415; 80053; 82378; 85027; 86140; 96365

== ENCOUNTER 2018-12-01 10:00 | Day surgery (SDC) | payer OTHER | END 2018-12-01 11:30 | disposition home or self-care (01) | LOC: JINFUSION 10:00 ==

== ENCOUNTER 2018-12-02 09:32 | Day surgery (SDC) | payer OTHER | END 2018-12-02 10:35 | disposition home or self-care (01) | LOC: JINFUSION 09:32 | PROC: 3E04329 Introduction of Other Anti-infective into Central Vein, Percutaneous Approach (ICD-10-PCS; principal; 2018-12-02) | DX: E11.621 Type 2 diabetes mellitus with foot ulcer (principal); L02.611 Cutaneous abscess of right foot; B95.4 Other streptococcus as the cause of diseases classified elsewhere; M86.9 Osteomyelitis, unspecified; R78.81 Bacteremia ==

== ENCOUNTER 2018-12-03 09:21 | Day surgery (SDC) | payer OTHER ==
[2018-12-03 10:16] VITALS: BP 168/76; PULSE 57; TEMP 98
== END 2018-12-03 10:17 | disposition home or self-care (01) ==
LOC: JINFUSION 09:21
PROVIDERS: ATTEND Internal Medicine
DX: E11.621 Type 2 diabetes mellitus with foot ulcer (principal); L02.611 Cutaneous abscess of right foot; B95.4 Other streptococcus as the cause of diseases classified elsewhere; M86.9 Osteomyelitis, unspecified; R78.81 Bacteremia
CPT/HCPCS: 96365

== ENCOUNTER 2018-12-04 09:22 | Day surgery (SDC) | payer OTHER | END 2018-12-04 11:20 | disposition home or self-care (01) | LOC: JINFUSION 09:22 → J7W 09:22 → JINFUSION 11:20 ==

== ENCOUNTER 2018-12-05 09:36 | Day surgery (SDC) | payer OTHER ==
[2018-12-05] MEDS ORDERED: ERTAPENEM SODIUM 1 GM in SODIUM CHLORIDE 50 ML IVPB ONE (10:15)
[2018-12-05 11:42] VITALS: BP 139/82; PULSE 71; TEMP 97.7
== END 2018-12-05 11:42 | disposition home or self-care (01) ==
LOC: JINFUSION 09:36 → J7W 09:36 → JINFUSION 11:42
PROVIDERS: ATTEND Internal Medicine
DX: E11.621 Type 2 diabetes mellitus with foot ulcer (principal); L02.611 Cutaneous abscess of right foot; B95.4 Other streptococcus as the cause of diseases classified elsewhere; M86.9 Osteomyelitis, unspecified; R78.81 Bacteremia
CPT/HCPCS: 96365; 96366

== ENCOUNTER 2018-12-06 12:17 | Day surgery (SDC) | payer OTHER | END 2018-12-06 14:00 | disposition home or self-care (01) | LOC: JINFUSION 12:17 ==

== ENCOUNTER → 2018-12-10 | Day surgery (SDC) | payer OTHER | END | disposition home or self-care (01) | LOC: JRADIR 13:10 | PROVIDERS: ATTEND Internal Medicine | PROC: 0JPT0XZ Removal of Tunneled Vascular Access Device from Trunk Subcutaneous Tissue and Fascia, Open Approach (ICD-10-PCS; principal; 2018-12-10) | DX: Z45.2 Encounter for adjustment and management of vascular access device (principal); M86.9 Osteomyelitis, unspecified | CPT/HCPCS: 36589; 36590 ==

== ENCOUNTER 2018-12-13 18:34 | Emergency (ER) | payer OTHER | END 2018-12-13 23:34 | disposition home or self-care (01) | LOC: JER 18:34 ==

== ENCOUNTER 2019-07-10 12:09 | Emergency (ER) | payer OTHER ==
[2019-07-10 12:35] VITALS: TEMP 97.7; BMI 24.7
--- NOTE | 2019-07-10 13:15 | PDOC ---
History of Present Illness - General Chief Complaint: Constipation Stated Complaint: Constipation Time Seen by Provider: 07/10/19 12:45 History Source: Patient Exam Limitations: Language Barrier Past History - Past Medical History Allergies/Adverse Reactions: Allergies Allergy/AdvReac Type Severity Reaction Status Date / Time No Known Allergies Allergy Verified 07/10/19 12:35 Home Medications: Ambulatory Orders Aspirin [ASA -] 81 mg PO DAILY 07/19/16 Rosuvastatin [Crestor -] 40 mg PO DAILY 07/19/16 Tamsulosin HCl [Flomax] 0.4 mg PO HS #7 cap.er.24h 06/07/17 Amlodipine Besylate [Norvasc -] 10 mg PO DAILY tablet 12/29/17 Hydrochlorothiazide [Hctz -] 12.5 mg PO DAILY 07/10/19 Insulin Sliding Scale [Novolog Vial Sliding Scale -] 7 vial SQ TIDAC 07/10/19 Lactulose (Oral Use) [Cephulac -] 20 gm PO TID #1 bottle 07/10/19 Losartan Potassium 100 mg PO DAILY 07/10/19 Metoprolol Succinate [Toprol Xl] 50 mg PO DAILY 07/10/19 Anemia: No Asthma: No Cancer: No Cardiac Disorders: Yes (s/p CABG) CVA: No COPD: No CHF: No Dementia: No Diabetes: Yes GI Disorders: Yes (GERD) Disorders: Yes (Renal insuffiency) HTN: Yes Hypercholesterolemia: Yes Liver Disease: No Seizures: No Thyroid Disease: No - Surgical History Abdominal Surgery: No Appendectomy: No Cardiac Surgery: Yes (STENTS, BYPASS) Cholecystectomy: No Lung Surgery: No Neurologic Surgery: No Orthopedic Surgery: No - Immunization History Immunization Up to Date: Yes - Psycho Social/Smoking Cessation Hx Smoking History: Never smoked Have you smoked in the past 12 months: No If you are a former smoker, when did you quit?: 1979 Hx Alcohol Use: No Drug/Substance Use Hx: No Substance Use Type: None Hx Substance Use Treatment: No Abd/GI Specific PMHX - Complaint Specific PMHX Colitis: No Diverticulitis: No Gall Bladder Disease: No GERD: No Hepatitis: No Irritable Bowel Synd (IBS): No Pancreatitis: No GI Ulcer Disease: No *Physical Exam - Vital Signs Last Vital Signs Temp Pulse Resp BP Pulse Ox 97.7 F 98 H 18 138/84 99 07/10/19 12:33 07/10/19 12:33 07/10/19 12:33 07/10/19 12:33 07/10/19 12:33 - Physical Exam General Appearance: No: Apparent Distress Respiratory/Chest: positive: Lungs Clear, Normal Breath Sounds. negative: Respiratory Distress Cardiovascular: positive: Regular Rhythm, Regular Rate, S1, S2. negative: Murmur Gastrointestinal/Abdominal: positive: Soft. negative: Tender, Distended, Guarding, Rebound, Mass Rectal Exam: positive: other (no evidence of fecal impaction, stool color brown) Integumentary: positive: Normal Color Neurologic: positive: Alert ED Treatment Course - RADIOLOGY Radiology Studies Ordered: Category Date Time Status ABDOMEN FLAT & UPRIGHT [RAD] Stat Radiology 07/10/19 12:58 Ordered Medical Decision Making - Medical Decision Making 69 y/o M hx of HTN, HLD, DM, CABG, renal insufficiency, osteomyelitis, GERD presents with constipation x 1 week. States is only passing small pellets of stools (last passed 2 days ago). Mentions suffers from constipation but does not take meds for it. States is otherwise eating well. Denies fever, cp, vomiting, urinary sxs. Denies prior abdominal surgeries Plan: Flat and upright abd xray to r/o SBO (suspicion low) 07/10/19 13:15 Xray showed large amount of stool with no evidence of SBO Patient was given suppository and lactulose Patient states will wait at home for bowel movement 07/10/19 15:04 Discharge - Discharge Information Problems reviewed: Yes Clinical Impression/Diagnosis: Constipation Qualifiers: Constipation type: unspecified constipation type Qualified Code(s): K59.00 - Constipation, unspecified Condition: Stable Disposition: HOME - Admission No - Additional Discharge Information Prescriptions: Lactulose (Oral Use) [Cephulac -] 20 gm PO TID #1 bottle Prescription Drug Monitoring Program (I-STOP) results: I-STOP not reviewed - Follow up/Referral Referrals: Ishan Dumas MD [Primary Care Provider] - 2 Days - Patient Discharge Instructions Patient Printed Discharge Instructions: DI for Constipation Additional Instructions: Thank you for choosing [facility]. It was a pleasure taking care of you. Use lactulose as needed for constipation Be sure to stay hydrated and eat more fiber in your diet Follow-up with your doctor in 2 days Return to the Emergency Department if your symptoms worsen or persist, you have fever, severe abdominal pain, vomiting or other concerning symptoms. - Post Discharge Activity
[2019-07-10] MEDS ORDERED: BISACODYL 10 MG SUPP.RECT PR ONE (13:30)
[2019-07-10] MEDS ORDERED: BISACODYL 10 MG SUPP.RECT RC ONE (14:04)
[2019-07-10] MEDS ORDERED: LACTULOSE 20 GM/30 ML UDC (FOR ORAL USE ONLY) PO ONE (14:36)
[2019-07-10] MEDS ORDERED: LACTULOSE 20 GM/30 ML UDC (FOR ORAL USE ONLY) ONE (14:40)
[2019-07-10 14:56] VITALS: BP 132/76; PULSE 90
== END 2019-07-10 15:51 | disposition home or self-care (01) ==
LOC: JER 12:09
DX: K59.00 Constipation, unspecified (principal); I25.10 Atherosclerotic heart disease of native coronary artery without angina pectoris; I13.10 Hypertensive heart and chronic kidney disease without heart failure, with stage 1 through stage 4 chronic kidney disease, or unspecified chronic kidney disease; N18.9 Chronic kidney disease, unspecified; Z95.1 Presence of aortocoronary bypass graft; Z95.5 Presence of coronary angioplasty implant and graft; E78.00 Pure hypercholesterolemia, unspecified; K21.9 Gastro-esophageal reflux disease without esophagitis; E11.22 Type 2 diabetes mellitus with diabetic chronic kidney disease; Z79.4 Long term (current) use of insulin
CPT/HCPCS: 74019-TC-FY; 99282-25

== ENCOUNTER 2019-07-27 09:29 | Emergency (ER) | payer OTHER ==
[2019-07-27 10:30] VITALS: TEMP 97.6; BMI 25.7
[2019-07-27 11:52] LABS: BASO % 0.5 % (0-2.0); EOS % 1.5 % (0-4.5); HEMATOCRIT 36.6 % (35.4-49); HEMOGLOBIN 12.2 GM/dL (11.7-16.9); LYMPH % 9.8 % (8-40); MCH 28.1 pg (25.7-33.7); MCHC 33.4 g/dl (32.0-35.9); MEAN CELL VOLUME 84.2 fl (80-96); MEAN PLT VOLUME 9.5 fl (7.5-11.1); MONO % 9.2 % (3.8-10.2); PLATELET COUNT 185 K/MM3 (134-434); RBC 4.35 M/mm3 (4.00-5.60); RDW 15.7 % (11.9-15.9); WHITE BLOOD COUNT 9.7 K/mm3 (4.0-10.0)
[2019-07-27 12:26] LABS: ALBUMIN 3.6 g/dl (3.4-5.0); BILIRUBIN,TOTAL 0.3 mg/dL (0.2-1); CALCIUM 9.1 mg/dL (8.5-10.1); CREATININE 1.9 mg/dL (0.55-1.3); N-TERMINAL BNP 2251.6 pg/ml (5-125); POTASSIUM 4.3 mmol/L (3.5-5.1); TOT PROT 7.8 g/dl (6.4-8.2)
[2019-07-27] MEDS ORDERED: FUROSEMIDE 40 MG/4 ML INJECTABLE VIAL IVPUSH ONE (12:38)
[2019-07-27] MEDS ORDERED: FUROSEMIDE 40 MG/4 ML INJECTABLE VIAL ONE (13:03)
[2019-07-27 15:22] VITALS: BP 162/77; PULSE 99
--- NOTE | 2019-07-27 15:32 | PDOC ---
Documentation entered by Paola Jones SCRIBE, acting as scribe for Eric Clifford MD. Eric Clifford MD: This documentation has been prepared by the Robert high Sammi, SCRIBE, under my direction and personally reviewed by me in its entirety. I confirm that the documentation accurately reflects all work, treatment, procedures, and medical decision making performed by me. History of Present Illness - General Chief Complaint: Shortness of Breath Stated Complaint: SOB Time Seen by Provider: 07/27/19 10:47 - History of Present Illness Initial Comments: 07/27/19 11:31 The patient is a 69 year old male, who presents for evaluation of 3 weeks of shortness of breath. He reports he his SOB is exacerbated when lying down and mildly on exertion. He states he feels fluid in his chest. Denies chest pain. The patient was evaluated 2 weeks ago in our ED for similar symptoms and was treated for constipation. Surgical hx: 3/4 bypass (~3 years ago) PCP: Piter Past History - Past Medical History Allergies/Adverse Reactions: Allergies Allergy/AdvReac Type Severity Reaction Status Date / Time No Known Allergies Allergy Verified 07/10/19 12:35 Home Medications: Ambulatory Orders Aspirin [ASA -] 81 mg PO DAILY 07/19/16 Rosuvastatin [Crestor -] 40 mg PO DAILY 07/19/16 Tamsulosin HCl [Flomax] 0.4 mg PO HS #7 cap.er.24h 06/07/17 Amlodipine Besylate [Norvasc -] 10 mg PO DAILY tablet 12/29/17 Hydrochlorothiazide [Hctz -] 12.5 mg PO DAILY 07/10/19 Insulin Sliding Scale [Novolog Vial Sliding Scale -] 0 vial SQ TIDAC 07/10/19 Lactulose (Oral Use) [Cephulac -] 20 gm PO TID #1 bottle 07/10/19 Losartan Potassium 100 mg PO DAILY 07/10/19 Metoprolol Succinate [Toprol Xl] 50 mg PO DAILY 07/10/19 Furosemide [Lasix -] 20 mg PO DAILY #2 tablet 07/27/19 Potassium Chloride [K-Dur -] 10 meq PO DAILY #2 tablet.er 07/27/19 Anemia: No Asthma: No Cancer: No Cardiac Disorders: Yes (s/p CABG) CVA: No COPD: No CHF: No Dementia: No Diabetes: Yes GI Disorders: Yes (GERD) Disorders: Yes (Renal insuffiency) HTN: Yes Hypercholesterolemia: Yes Liver Disease: No Seizures: No Thyroid Disease: No - Surgical History Abdominal Surgery: No Appendectomy: No Cardiac Surgery: Yes (STENTS, BYPASS) Cholecystectomy: No Lung Surgery: No Neurologic Surgery: No Orthopedic Surgery: No - Immunization History Immunization Up to Date: Yes - Psycho Social/Smoking Cessation Hx Smoking History: Unknown if ever smoked Have you smoked in the past 12 months: No If you are a former smoker, when did you quit?: 1979 Hx Alcohol Use: No Drug/Substance Use Hx: No Substance Use Type: None Hx Substance Use Treatment: No Review of Systems - Review of Systems Comments:: 07/27/19 11:32 CONSTITUTIONAL: No fever, no chills, no fatigue EYES: No visual changes ENT: No ear pain, no sore throat CARDIOVASCULAR: No chest pain, no palpitations RESPIRATORY: + SOB. GI: +constipation. No abdominal pain, no nausea, no vomiting, no diarrhea GENITOURINARY: No dysuria, no frequency, no hematuria MUSKULOSKELETAL: No backpain, no joint pain, no myalgias SKIN: No rash NEURO: No headache *Physical Exam - Vital Signs Last Vital Signs Temp Pulse Resp BP Pulse Ox 97.6 F 109 H 18 162/80 98 07/27/19 10:24 07/27/19 10:24 07/27/19 10:24 07/27/19 10:24 07/27/19 10:24 - Physical Exam 07/27/19 11:33 CONSTITUTIONAL: Well-appearing; well-nourished; in no apparent distress EYES: PERRL; EOM intact ENMT: External appears normal; normal oropharynx NECK: +JVD. non-tender; no cervical lymphadenopathy CARD: Normal S1, S2; no murmurs, rubs, or gallops RESP: +crackles at bases bilaterally ABD: Soft, non-distended; non-tender; no palpable organomegaly, no palpable hernias EXT: + +1 pitting edema of lower extremity bilaterally Normal ROM in all four extremities; non-tender to palpation; distal pulses intact SKIN: Warm, dry, no rash NEURO: No focal neurological deficiencies. ED Treatment Course - LABORATORY CBC & Chemistry Diagram: 07/27/19 11:36 07/27/19 11:36 - ADDITIONAL ORDERS Additional order review: Laboratory Results 07/27/19 11:36 Sodium 137 Potassium 4.3 Chloride 104 Carbon Dioxide 26 Anion Gap 8 BUN 29.0 H Creatinine 1.9 H Est GFR (CKD-EPI)AfAm 41.07 Est GFR (CKD-EPI)NonAf 35.44 Random Glucose 203 H Calcium 9.1 Total Bilirubin 0.3 AST 21 ALT 33 Alkaline Phosphatase 82 Creatine Kinase 85 Troponin I 0.02 B-Natriuretic Peptide 2251.6 H Total Protein 7.8 Albumin 3.6 07/27/19 11:36 RBC 4.35 MCV 84.2 MCHC 33.4 RDW 15.7 MPV 9.5 Neutrophils % 79.0 Lymphocytes % 9.8 Monocytes % 9.2 Eosinophils % 1.5 Basophils % 0.5 - RADIOLOGY Radiology Studies Ordered: Category Date Time Status CHEST PA & LAT [RAD] Stat Radiology 07/27/19 11:19 Completed - Medications Given in the ED: ED Medications Discontinued Medications Generic Name Dose Route Start Last Admin Trade Name Freq PRN Reason Stop Dose Admin Furosemide 40 mg 07/27/19 12:38 07/27/19 13:46 Lasix Injection - IVPUSH 07/27/19 12:39 40 mg ONCE ONE Administration Medical Decision Making - Medical Decision Making 07/27/19 15:27 Patient 69-year-old male with history of CAD status post CABG, CHF, hypertension , hypercholesterolemia, diabetes who presents with 2 weeks of worsening dyspnea with exertion, PND and orthopnea. In the ER, patient is awake and alert, with well-nourished, in no significant respiratory distress. Vital signs are noted. Physical exam reveals bilateral bibasilar crackles, +1 to +2 pitting edema of the lower extremities. Chest x-ray reveals pulmonary vascular congestion, most pronounced in the lower lung chaudhari. BNP is elevated. BUN and creatinine appear at baseline. EKG reveals no evidence of acute ischemia. Patient is received a dose of IV Lasix-40 mg with significant diuresis. I do not suspect ACS. Will discharge with 2 days of p.o. Lasix to 20 mg daily with PMD follow- up. Discharge - Discharge Information Problems reviewed: Yes Clinical Impression/Diagnosis: Congestive heart failure Qualifiers: Heart failure type: unspecified Heart failure chronicity: acute on chronic Qualified Code(s): I50.9 - Heart failure, unspecified Condition: Stable Disposition: HOME - Follow up/Referral Referrals: Afshin Lee MD [Staff Physician] - - Patient Discharge Instructions Patient Printed Discharge Instructions: DI for Heart Failure Print Language: ENGLISH - Post Discharge Activity
--- NOTE | 2019-07-27 15:56 | EKG ---
Test Reason : Blood Pressure : / mmHG Vent. Rate : 100 BPM Atrial Rate : 100 BPM P-R Int : 146 ms QRS Dur : 090 ms QT Int : 354 ms P-R-T Axes : 048 015 080 degrees QTc Int : 456 ms POOR DATA QUALITY, INTERPRETATION MAY BE ADVERSELY AFFECTED SINUS RHYTHM WITH PREMATURE SUPRAVENTRICULAR COMPLEXES POSSIBLE INFERIOR INFARCT (CITED ON OR BEFORE 19-JUL-2014) ABNORMAL ECG WHEN COMPARED WITH ECG OF 13-DEC-2018 21:02, PREMATURE SUPRAVENTRICULAR COMPLEXES ARE NOW PRESENT VENT. RATE HAS INCREASED BY 41 BPM SERIAL CHANGES OF INFERIOR INFARCT PRESENT Confirmed by JOHNSON CHAVEZ, ROCKY ([id number]) on 07/27/2019 3:55:54 PM Referred By: Confirmed By:ROCKY ORNELAS MD
== END 2019-07-27 16:07 | disposition home or self-care (01) ==
LOC: JER 09:29
PROC: 3E033GC Introduction of Other Therapeutic Substance into Peripheral Vein, Percutaneous Approach (ICD-10-PCS; principal; 2019-07-27)
DX: I50.9 Heart failure, unspecified (principal); I25.10 Atherosclerotic heart disease of native coronary artery without angina pectoris; I10 Essential (primary) hypertension; E78.00 Pure hypercholesterolemia, unspecified; E11.9 Type 2 diabetes mellitus without complications
CPT/HCPCS: 36415; 71046-TC-FY; 80053; 82550; 83880; 84484; 85025; 93005; 93010; 99284-25

== ENCOUNTER 2019-08-23 11:18 | Inpatient (IN) | payer OTHER ==
[2019-08-23 11:35] VITALS: BMI 25.7
--- NOTE | 2019-08-23 12:16 | PDOC ---
History of Present Illness - General Chief Complaint: Chest Pain Stated Complaint: CHEST PAIN Time Seen by Provider: 08/23/19 11:42 History Source: Patient Exam Limitations: Language Barrier (International Relations Professor #[id number]) - History of Present Illness Initial Comments: 08/23/19 12:08 69M with a PMH of CAD s/p CABG, CHF, hypertension, hypercholesterolemia, DM who presents to the ER with multiple complaints. The patient describes intermittent lightheadedness over the past 2 weeks. Each time he becomes lightheaded, he is not exerting himself and he states that it happens "when he's sitting down". Last night, he developed L sided nonradiating atraumatic CP which he says improves when he puts pressure on that side of his chest. He felt more "mild" lightheadedness during this episode but it was associated with nausea, diaphoresis, and SOB. He currently denies any symptoms. Past History - Past Medical History Allergies/Adverse Reactions: Allergies Allergy/AdvReac Type Severity Reaction Status Date / Time No Known Allergies Allergy Verified 08/23/19 11:32 Home Medications: Ambulatory Orders Rosuvastatin [Crestor -] 40 mg PO DAILY 07/19/16 Tamsulosin HCl [Flomax] 0.4 mg PO HS #7 cap.er.24h 06/07/17 Amlodipine Besylate [Norvasc -] 10 mg PO DAILY tablet 12/29/17 Hydrochlorothiazide [Hctz -] 12.5 mg PO DAILY 07/10/19 Insulin Sliding Scale [Novolog Vial Sliding Scale -] 7 units SQ TIDAC 07/10/19 Metoprolol Succinate [Toprol Xl] 50 mg PO BID 07/10/19 Furosemide [Lasix -] 20 mg PO DAILY #2 tablet 07/27/19 Potassium Chloride [K-Dur -] 10 meq PO DAILY #2 tablet.er 07/27/19 Aspirin [Aspirin EC] 81 mg PO DAILY 08/23/19 Insulin Degludec [Tresiba Flextouch U-200] 50 unit SQ DAILY 08/23/19 Anemia: No Asthma: No Cancer: No Cardiac Disorders: Yes (s/p CABG) CVA: No COPD: No CHF: No Dementia: No Diabetes: Yes GI Disorders: Yes (GERD) Disorders: Yes (Renal insuffiency) HTN: Yes Hypercholesterolemia: Yes Liver Disease: No Seizures: No Thyroid Disease: No - Surgical History Abdominal Surgery: No Appendectomy: No Cardiac Surgery: Yes (STENTS, BYPASS) Cholecystectomy: No Lung Surgery: No Neurologic Surgery: No Orthopedic Surgery: No - Immunization History Immunization Up to Date: Yes - Psycho Social/Smoking Cessation Hx Smoking History: Never smoked Have you smoked in the past 12 months: No If you are a former smoker, when did you quit?: 1979 Hx Alcohol Use: No Drug/Substance Use Hx: No Substance Use Type: None Hx Substance Use Treatment: No Review of Systems - Review of Systems Able to Perform ROS?: Yes Comments:: 08/23/19 12:09 GENERAL/CONSTITUTIONAL: No fever or chills. No weakness. HEAD, EYES, EARS, NOSE AND THROAT: No change in vision. No ear pain or discharge. No sore throat. CARDIOVASCULAR: + for chest pain and lightheadedness. No palpitations. RESPIRATORY: + for SOB. No cough, wheezing, or hemoptysis. GASTROINTESTINAL: + for nausea. No abdominal pain, vomiting, diarrhea, or constipation. GENITOURINARY: No dysuria, frequency, hematuria, or change in urination. MUSCULOSKELETAL: No joint or muscle swelling or pain. No neck or back pain. SKIN: No rash or lesions. NEUROLOGIC: No headache, numbness, tingling, focal weakness, loss of consciousness, or change in strength/sensation. Is the patient limited [place] proficient: No *Physical Exam - Vital Signs Last Vital Signs Temp Pulse Resp BP Pulse Ox 98.2 F 110 H 18 141/72 99 08/23/19 11:32 08/23/19 11:32 08/23/19 11:32 08/23/19 11:32 08/23/19 11:32 - Physical Exam 08/23/19 12:10 GENERAL: Well developed, well nourished. Awake and alert. No acute distress. HEENT: Normocephalic, atraumatic. Hearing grossly normal. Moist mucous membranes. PERRLA, EOMI. No conjunctival pallor. Sclera are non-icteric. NECK: Supple. Full ROM. No JVD. CARDIOVASCULAR: Tachycardic regular rhythm. Systolic murmur. No rubs or gallops. PULMONARY: No evidence of respiratory distress. Lungs clear to auscultation bilaterally. No wheezing, rales, or rhonchi. ABDOMINAL: Soft. Non-tender. Non-distended. No rebound or guarding. GENITOURINARY: No CVA tenderness bilaterally. MUSCULOSKELETAL: Normal range of motion at all joints. No bony deformities or tenderness. EXTREMITIES: No cyanosis. No clubbing. No edema. No calf tenderness or swelling. 2cm linear wound on L great toe, healing. SKIN: Warm and dry. Normal capillary refill. No rashes. No jaundice. NEUROLOGICAL: Alert, awake, appropriate. Cranial nerves 2-12 grossly intact. Normal speech. Gait is normal without ataxia. PSYCHIATRIC: Cooperative. Good eye contact. Appropriate mood and affect. Heart Score/ECG Review - History History: Highly suspicious - Age Age: >/= 65 - Risk Factors Risk Factors Heart Score: Yes Hx Hypercholesterolemia, Yes Hx Hypertension, Yes Hx Diabetes Based on the list above the patient has:: >/=3 risk factors or Hx atherosclerotic disease ED Treatment Course - LABORATORY CBC & Chemistry Diagram: 08/23/19 12:20 08/23/19 12:20 - RADIOLOGY Radiology Studies Ordered: Category Date Time Status CHEST X-RAY PORTABLE* [RAD] Stat Radiology 08/23/19 12:03 Ordered Medical Decision Making - Medical Decision Making 08/23/19 12:10 69M with MMP who presents to the ER with a concerning story for ACS. Pt recently had a nuclear perfusion study which showed EF of 26%. Will obtain EKG, labs, CXR. Pt well appearing and comfortable otherwise. PE notable for tachycardia and systolic murmur. Will monitor closely. 08/23/19 14:36 Labs WNL. Pt endorsed to MELISSA Witt for further evaluation. Discharge - Discharge Information Problems reviewed: Yes Clinical Impression/Diagnosis: Chest pain due to CAD Condition: Guarded - Admission Yes - Follow up/Referral Referrals: Afshin Lee MD [Primary Care Provider] - - Patient Discharge Instructions - Post Discharge Activity
[2019-08-23 12:31] LABS: BASO % 0.6 % (0-2.0); EOS % 1.3 % (0-4.5); HEMATOCRIT 35.6 % (35.4-49); HEMOGLOBIN 12.2 GM/dL (11.7-16.9); MCH 28.6 pg (25.7-33.7); MCHC 34.3 g/dl (32.0-35.9); MEAN CELL VOLUME 83.4 fl (80-96); MEAN PLT VOLUME 9.9 fl (7.5-11.1); MONO % 11.1 % (3.8-10.2); PLATELET COUNT 188 K/MM3 (134-434); RBC 4.27 M/mm3 (4.00-5.60); RDW 15.3 % (11.9-15.9); WHITE BLOOD COUNT 9.6 K/mm3 (4.0-10.0)
--- NOTE | 2019-08-23 12:49 | PDOC ---
Attending Attestation - Resident Resident Name: Danilo Rivera - ED Attending Attestation I have performed the following: I have examined & evaluated the patient, The case was reviewed & discussed with the resident, I agree w/resident's findings & plan, Exceptions are as noted - HPI HPI: 08/23/19 12:21 69y M hx of CAD sp CABG, CHF, CKD, HTN, HL, DM, presents with complaint of intermittent lightheaded x 2 weeks that lasts fr seconds before resolving, feels like passing out for a few seconds when he is sitting down. Patient also endorses approximately 1 hour episode of left-sided chest pain that is nonradiating associated with nausea, diaphoresis, lightheadedness last night approximately 10 PM. Pain is since resolved and the patient is currently asymptomatic. Patient denies any fever, chills, coughing, shortness of breath, abdominal pain, current nausea or vomiting, focal numbness, tingling, weakness, headache, back pain, neck pain. - Physicial Exam PE: 08/23/19 12:52 GENERAL: The patient is awake, alert, and fully oriented, Nontoxic - in no acute distress. HEAD: Normocephalic, atraumatic. EYES: extraocular movements intact, sclera anicteric, conjunctiva clear. ENT: Normal voice, Moist mucous membranes. NECK: Normal range of motion, supple LUNGS: Breath sounds equal, clear to auscultation bilaterally. No wheezes, no rhonchi, no rales. HEART: tachycardic, normal S1 and S2 without murmur, rub or gallop. ABDOMEN: Soft, nontender, No guarding, no rebound. No CVA tenderness, EXTREMITIES: Normal range of motion, no edema. callous on L toe without erythma , induration, fluctuance, discharge, warmth. NEUROLOGICAL: No facial assymetry, Normal speech, moving all 4 ext spontaneously and symmerically PSYCH: Normal mood, normal affect. SKIN: Warm, Dry, normal turgor, - Medical Decision Making 08/23/19 12:58 69-year-old gentleman history of CAD status post CABG presenting with intermittent episodes of lightheadedness as well as episode of chest pain associated with diaphoresis, shortness of breath, nausea. pain resolved. On exam the patient is in no acute distress, concern for possible ACS, EKG is nondiagnostic. Will obtain blood work anticipate observation. 08/23/19 14:58 labs reviewed trop neg x 1 cr slightly elevated from baseline of high 1s pt currently asymtmatic will admit for furhter management Heart Score/ECG Review - ECG Impressions Comment:: 08/23/19 12:58 Twelve-lead EKG was performed and reviewed by me. There is normal sinus rhythm with a rate of 106 Left ventricular hypertrophy No ST wave changes suggestive of acute ischemia
[2019-08-23 12:50] LABS: INR 0.92 (0.83-1.09); PROTHROMBIN TIME (PATIENT) 10.9 SEC (9.7-13.0)
[2019-08-23 12:53] LABS: ACTIVATED PTT 33.2 SECONDS (25.2-36.5)
[2019-08-23 13:09] LABS: ALBUMIN 3.8 g/dl (3.4-5.0); BILIRUBIN,TOTAL 0.3 mg/dL (0.2-1); BLOOD UREA NITROGEN 52.5 mg/dL (7-18); CALCIUM 9.2 mg/dL (8.5-10.1); CREATININE 2.3 mg/dL (0.55-1.3); MAGNESIUM 2.5 mg/dL (1.8-2.4); POTASSIUM 3.9 mmol/L (3.5-5.1); TOT PROT 8.1 g/dl (6.4-8.2)
[2019-08-23] MEDS ORDERED: SODIUM CHLORIDE 0.9% 1000 ML INFUS.BAG IV ONE (13:42)
--- NOTE | 2019-08-23 16:21 | EKG ---
Test Reason : Blood Pressure : / mmHG Vent. Rate : 106 BPM Atrial Rate : 106 BPM P-R Int : 158 ms QRS Dur : 090 ms QT Int : 350 ms P-R-T Axes : 047 029 093 degrees QTc Int : 464 ms SINUS TACHYCARDIA LEFT ATRIAL ENLARGEMENT LEFT VENTRICULAR HYPERTROPHY WITH REPOLARIZATION ABNORMALITY POSSIBLE INFERIOR INFARCT ABNORMAL ECG Confirmed by MD MANA, AMANUEL ([id number]) on 08/23/2019 4:21:08 PM Referred By: Confirmed By:AMANUEL ADAIR MD
[2019-08-23] MEDS ORDERED: INSULIN (NOVOLOG) ASPART 100 UNITS/ML 10ML VIAL SQ SCH ×2 (16:30→22:00)
--- NOTE | 2019-08-23 16:37 | HP ---
Admitting History and Physical - Primary Care Physician PCP: Afshin Lee S - Admission Chief Complaint: chest pain History of Present Illness: 69 year old male with PMH HTN, HLD, CAD s/p CABG, +nuclear scan on 08/19, uncontrolled DM w/ neuropathy presents to the ED with chest pain. He states the chest pain started last night, associated with lightheadedness. he states sometimes he feels this way when his BP is high. he denies chest pain now , last night it was left chest wall, did not radiate, felt like pins directly over his heart. Denies n/v/d,fevers/chills. he states he lives alone. 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 Cardiovascular: Yes: CAD, HTN, Hyperlipdemia, [place] Gastrointestinal: Yes: GERD Renal/: Yes: Renal Inusuff Endocrine: Yes: Diabetes Mellitus - Past Surgical History Past Surgical History: Yes: CABG, Stent - Smoking History Smoking history: Never smoked Have you smoked in the past 12 months: No If you are a former smoker, when did you quit?: 1979 - Alcohol/Substance Use Hx Alcohol Use: No History of Substance Use: reports: None - Social History Usual Living Arrangement: Yes: Alone ADL: Independent 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 History of Recent Travel: No Home Medications - Allergies Allergies/Adverse Reactions: Allergies Allergy/AdvReac Type Severity Reaction Status Date / Time No Known Allergies Allergy Verified 08/23/19 11:32 - Home Medications Home Medications: Ambulatory Orders Rosuvastatin [Crestor -] 40 mg PO DAILY 07/19/16 Tamsulosin HCl [Flomax] 0.4 mg PO HS #7 cap.er.24h 06/07/17 Amlodipine Besylate [Norvasc -] 10 mg PO DAILY tablet 12/29/17 Hydrochlorothiazide [Hctz -] 12.5 mg PO DAILY 07/10/19 Insulin Sliding Scale [Novolog Vial Sliding Scale -] 7 units SQ TIDAC 07/10/19 Metoprolol Succinate [Toprol Xl] 50 mg PO BID 07/10/19 Furosemide [Lasix -] 20 mg PO DAILY #2 tablet 07/27/19 Potassium Chloride [K-Dur -] 10 meq PO DAILY #2 tablet.er 07/27/19 Aspirin [Aspirin EC] 81 mg PO DAILY 08/23/19 Insulin Degludec [Tresiba Flextouch U-200] 50 unit SQ DAILY 08/23/19 Review of Systems - Review of Systems Constitutional: reports: No Symptoms Cardiovascular: reports: Chest Pain Respiratory: reports: No Symptoms Gastrointestinal: reports: Constipation Genitourinary: reports: No Symptoms Integumentary: reports: No Symptoms Neurological: reports: Dizziness Hematology/Lymphatic: reports: No Symptoms Physical Examination Vital Signs: Vital Signs Temperature 98.1 F 08/23/19 15:00 Pulse Rate 81 08/23/19 15:00 Respiratory Rate 19 08/23/19 15:00 Blood Pressure 138/75 08/23/19 15:00 O2 Sat by Pulse Oximetry (%) 95 08/23/19 15:00 Constitutional: Yes: Well Nourished, No Distress, Calm HENT: Yes: WNL, Atraumatic, Normocephalic Neck: Yes: Supple Cardiovascular: Yes: Tachycardia, S1, S2 Respiratory: Yes: WNL Gastrointestinal: Yes: Normal Bowel Sounds, Soft Musculoskeletal: Yes: WNL Extremities: Yes: WNL Neurological: Yes: WNL, Alert, Oriented Labs: CBC, BMP 08/23/19 12:20 08/23/19 12:20 Problem List - Problems (1) Chest pain due to CAD Assessment/Plan: cardiology consult tele monitoring trend trop + nuclear scan 08/19 ( exercise, no ischemic changes, nuclear- inferolateral perfusion defect consistent with old DE with minimal per-infarct ischemi. EF 26% continue asa statin Code(s): I25.119 - ATHSCL HEART DISEASE OF [place] ART W UNSP ANG PCTRS (2) Acute kidney injury superimposed on CKD Assessment/Plan: results are higher than baseline monitor bun/creat for downtrend Code(s): N17.9 - ACUTE KIDNEY FAILURE, UNSPECIFIED; N18.9 - CHRONIC KIDNEY DISEASE, UNSPECIFIED (3) BPH (benign prostatic hypertrophy) Assessment/Plan: continue flomax Code(s): N40.0 - BENIGN PROSTATIC HYPERPLASIA WITHOUT LOWER URINRY TRACT SYMP (4) Congestive heart failure Assessment/Plan: continue lasix I & O daily weights 2gm, 2L Code(s): I50.9 - HEART FAILURE, UNSPECIFIED Qualifiers: Heart failure type: combined systolic and diastolic (5) Constipation Assessment/Plan: add bowel regimen, was given lactulose in the past Code(s): K59.00 - CONSTIPATION, UNSPECIFIED (6) Diabetes mellitus, insulin dependent (IDDM), uncontrolled Assessment/Plan: sliding scale 7 units standing 50 units levemir monitor poc Code(s): E10.65 - TYPE 1 DIABETES MELLITUS WITH HYPERGLYCEMIA (7) HTN (hypertension) Assessment/Plan: cont home meds Code(s): I10 - ESSENTIAL (PRIMARY) HYPERTENSION (8) Vertigo Assessment/Plan: prn meclizine physical therapy Code(s): R42 - DIZZINESS AND GIDDINESS
[2019-08-23] MEDS ORDERED: LACTULOSE 20 GM/30 ML UDC (FOR ORAL USE ONLY) PO ONE (16:40)
[2019-08-23] MEDS ORDERED: MECLIZINE HCL 12.5 MG TABLET PO PRN (16:40)
[2019-08-23] MEDS ORDERED: LACTULOSE 20 GM/30 ML UDC (FOR ORAL USE ONLY) ONE (17:37)
[2019-08-23] MEDS ORDERED: TAMSULOSIN HCL 0.4 MG CAP ONE (21:18)
[2019-08-23] MEDS: TAMSULOSIN HCL 0.4 MG CAP PO SCH (21:35)
[2019-08-23] MEDS: INSULIN SLIDING SCALE (NOVOLOG) 1 VIAL SQ SCH (21:56)
[2019-08-24] MEDS: INSULIN SLIDING SCALE (NOVOLOG) 1 VIAL SQ SCH ×4 (06:39→22:43)
[2019-08-24] MEDS ORDERED: INSULIN (LEVEMIR) 100 UNITS/ML UNITS SQ SCH (07:00)
[2019-08-24 07:02] LABS: BASO % 0.5 % (0-2.0); EOS % 2.7 % (0-4.5); HEMATOCRIT 32.7 % (35.4-49); LYMPH % 10.8 % (8-40); MCH 28.7 pg (25.7-33.7); MCHC 33.8 g/dl (32.0-35.9); MEAN PLT VOLUME 10.1 fl (7.5-11.1); MONO % 11.8 % (3.8-10.2); NEUT % 74.2 % (42.8-82.8); PLATELET COUNT 150 K/MM3 (134-434); RBC 3.84 M/mm3 (4.00-5.60); RDW 15.4 % (11.9-15.9); WHITE BLOOD COUNT 7.4 K/mm3 (4.0-10.0)
[2019-08-24 07:32] LABS: ALBUMIN 3.1 g/dl (3.4-5.0); BILIRUBIN,TOTAL 0.2 mg/dL (0.2-1); BLOOD UREA NITROGEN 52.3 mg/dL (7-18); CALCIUM 8.3 mg/dL (8.5-10.1); CREATININE 2.1 mg/dL (0.55-1.3); POTASSIUM 4.4 mmol/L (3.5-5.1); TOT PROT 6.6 g/dl (6.4-8.2)
--- NOTE | 2019-08-24 08:50 | CON.CARD ---
Consult Consult Specialty:: Cardiology Referred by:: Fernando Reason for Consultation:: Dizziness and chest pains - History of Present Illness Chief Complaint: Chest pain History of Present Illness: 69 DM [place] [facility] [place], NOW P/W DIZZINESS AND CHEST DISCOMFORT AT REST. NO SUCH SYMPTOMS WHILE WALKING. CURRENT DIZZY AND CP FREE. 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 Cardio/Vascular: Yes: CAD, HTN, Hyperlipdemia, [place] Gastrointestinal: Yes: GERD Renal/: Yes: Renal Inusuff Endocrine: Yes: Diabetes Mellitus - Past Surgical History Past Surgical History: Yes: CABG, Stent - Alcohol/Substance Use Hx Alcohol Use: No History of Substance Use: reports: None - Smoking History Smoking history: Never smoked Have you smoked in the past 12 months: No If you are a former smoker, when did you quit?: 1979 - Social History Usual Living Arrangement: Alone ADL: Independent 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 History of Recent Travel: No Home Medications - Allergies Allergies/Adverse Reactions: Allergies Allergy/AdvReac Type Severity Reaction Status Date / Time No Known Allergies Allergy Verified 08/23/19 11:32 - Home Medications Home Medications: Ambulatory Orders Rosuvastatin [Crestor -] 40 mg PO DAILY 07/19/16 Tamsulosin HCl [Flomax] 0.4 mg PO HS #7 cap.er.24h 06/07/17 Amlodipine Besylate [Norvasc -] 10 mg PO DAILY tablet 12/29/17 Hydrochlorothiazide [Hctz -] 12.5 mg PO DAILY 07/10/19 Insulin Sliding Scale [Novolog Vial Sliding Scale -] 7 units SQ TIDAC 07/10/19 Metoprolol Succinate [Toprol Xl] 50 mg PO BID 07/10/19 Furosemide [Lasix -] 20 mg PO DAILY #2 tablet 07/27/19 Potassium Chloride [K-Dur -] 10 meq PO DAILY #2 tablet.er 07/27/19 Aspirin [Aspirin EC] 81 mg PO DAILY 08/23/19 Insulin Degludec [Tresiba Flextouch U-200] 50 unit SQ DAILY 08/23/19 Review of Systems - Review of Systems Constitutional: reports: Weakness Eyes: reports: No Symptoms HENT: reports: No Symptoms Neck: reports: No Symptoms Respiratory: reports: No Symptoms Gastrointestinal: reports: No Symptoms Genitourinary: reports: No Symptoms Breasts: reports: No Symptoms Reported Musculoskeletal: reports: No Symptoms Integumentary: reports: No Symptoms Neurological: reports: Dizziness Endocrine: reports: No Symptoms Hematology/Lymphatic: reports: No Symptoms Psychiatric: reports: No Symptoms Vital Signs: Vital Signs Temperature 97.8 F 08/23/19 20:40 Pulse Rate 73 08/24/19 08:06 Respiratory Rate 20 08/24/19 08:06 Blood Pressure 119/54 L 08/24/19 08:06 O2 Sat by Pulse Oximetry (%) 98 08/24/19 08:06 Constitutional: Yes: Well Nourished, No Distress, Calm Eyes: Yes: WNL, Conjunctiva Clear, EOM Intact HENT: Yes: WNL, Atraumatic, Normocephalic Neck: Yes: WNL, Supple, Trachea Midline Respiratory: Yes: WNL, Regular, CTA Bilaterally Gastrointestinal: Yes: WNL, Normal Bowel Sounds, Soft Renal/: Yes: WNL Cardiovascular: Yes: WNL, Regular Rate and Rhythm JVD: No Carotid Bruit: No PMI: Non-Displaced Heart Sounds: Yes: S1, S2 Murmur: Yes: Systolic Murmur, Grade 2 Musculoskeletal: Yes: WNL Extremities: Yes: WNL Edema: No Peripheral Pulses WNL: Yes Integumentary: Yes: WNL Neurological: Yes: WNL, Alert, Oriented - Other Data Labs, Other Data: CBC, BMP 08/24/19 06:24 08/24/19 06:24 INR, PTT INR 0.92 (0.83-1.09) 08/23/19 12:20 Troponin, BNP 08/23/19 08/24/19 12:20 00:05 Troponin I 0.02 1.93 H* Troponin, BNP 08/23/19 08/24/19 12:20 00:05 Troponin I 0.02 1.93 H* Assessment/Plan 69 DM [place] [facility] [place], NOW P/W DIZZINESS AND CHEST DISCOMFORT AT REST. NO SUCH SYMPTOMS WHILE WALKING. CURRENT DIZZY AND CP FREE. Cardiac markers are elevated.A recent stress test showed predominantly fixed defects with severe left ventricular systolic dysfunction. An echocardiogram that was done in October 2018 showed the ejection fraction was normal. Admit to telemetry. Obtain orthostatics. If not orthostatic, please arrange for neurological evaluation. Repeat the echocardiogram to reevaluate his systolic function. I will determine the need for further cardiac work-up once the echocardiographic findings are available. Continue serial cardiac markers and ECGs.
[2019-08-24] MEDS: POTASSIUM CHLORIDE TABS 10 MEQ TABLET.ER (FP) PO SCH (09:44)
[2019-08-24] MEDS: ASPIRIN COATED 81 MG TABLET.EC PO SCH (09:44)
[2019-08-24] MEDS: FUROSEMIDE 20 MG TABLET (FP) PO SCH (09:45)
[2019-08-24] MEDS: amLODIPine BESYLATE 10 MG TABLET (FP) PO SCH (09:45)
[2019-08-24] MEDS ORDERED: INSULIN DEGLUDEC SQ SCH (10:00)
[2019-08-24] MEDS ORDERED: ROSUVASTATIN CA 20 MG TABLET (FP) PO SCH ×2 (10:00)
[2019-08-24] MEDS ORDERED: MORPHINE SULFATE 2 MG/ML VIAL IVPUSH PRN (10:04)
[2019-08-24] MEDS ORDERED: NITROGLYCERIN SUBLINGUAL 1/150 0.4 MG TAB SL PRN (10:04)
--- NOTE | 2019-08-24 10:07 | PN ---
Progress Note, Physician Chief Complaint: Chest Pain Dizziness Elevated troponins FRANKI History of Present Illness: NAD Denies any Chest pain, SOB or dizziness at this time Trop elevation overnight Repeat pending - Current Medication List Current Medications: Active Medications Amlodipine Besylate (Norvasc -) 10 mg PO DAILY [facility] Last Admin: 08/24/19 09:45 Dose: 10 mg Aspirin (Ecotrin -) 81 mg PO DAILY [facility] Last Admin: 08/24/19 09:44 Dose: 81 mg Furosemide (Lasix -) 20 mg PO DAILY [facility] Last Admin: 08/24/19 09:45 Dose: 20 mg Insulin Aspart (Novolog Vial Sliding Scale -) 1 vial SQ [facility]; Protocol Last Admin: 08/24/19 06:39 Dose: 2 units Insulin Detemir (Levemir Vial) 50 units SQ DAILY@0700 [facility] Last Admin: 08/24/19 06:46 Dose: Not Given Meclizine HCl (Antivert -) 12.5 mg PO Q6H PRN PRN Reason: VERTIGO Metoprolol Succinate (Toprol Xl -) 50 mg PO BID [facility] Last Admin: 08/24/19 09:44 Dose: 50 mg Potassium Chloride (K-Dur -) 10 meq PO DAILY [facility] Last Admin: 08/24/19 09:44 Dose: 10 meq Rosuvastatin Calcium (Crestor -) 40 mg PO DAILY [facility] Tamsulosin HCl (Flomax -) 0.4 mg PO HS [facility] Last Admin: 08/23/19 21:35 Dose: 0.4 mg - Objective Vital Signs: Vital Signs Temperature 97.8 F 08/23/19 20:40 Pulse Rate 73 08/24/19 08:06 Respiratory Rate 20 08/24/19 08:06 Blood Pressure 119/54 L 08/24/19 08:06 O2 Sat by Pulse Oximetry (%) 98 08/24/19 08:06 Constitutional: Yes: Well Nourished, No Distress, Calm Cardiovascular: Yes: Regular Rate and Rhythm Respiratory: Yes: Regular, CTA Bilaterally Gastrointestinal: Yes: Normal Bowel Sounds, Soft Genitourinary: Yes: WNL Musculoskeletal: Yes: Muscle Weakness Extremities: Yes: WNL Edema: No Peripheral Pulses WNL: Yes Neurological: Yes: Alert, Oriented Psychiatric: Yes: Alert, Oriented Labs: CBC, BMP 08/24/19 06:24 08/24/19 06:24 INR, PTT INR 0.92 (0.83-1.09) 08/23/19 12:20 Problem List - Problems (1) Chest pain due to CAD Assessment/Plan: -Cardiology consult -Sees Dr Vicente Diaz at [facility] -Last Echo 10/28/18 with normal LVEF at 55-60%, mild mitral and tricuspid regurg and mild aortic valve stenosis -Last Stress test done 08/19/19-inferior akinesis, severe septal hyperkinesis, EF-26%, large,severe intensity, fixed inferior + inferolateral perfusion defect consistent with prior infarct with minimal edwar-infarct ischemia. -Chest pain resolved for now -Nitro SL + morphine PRN -Repeat Echocardiogram to determine actual EF -Repeat EKG+ Trops now to monitor trend -Hold off heparin drip unless pt is symptomatic Problems reviewed: Yes Code(s): I25.119 - ATHSCL HEART DISEASE OF [place] COR ART W UNSP ANG PCTRS (2) FRANKI (acute kidney injury) Assessment/Plan: -Cr trending down -Monitor trend -HCTZ on hold Problems reviewed: Yes Code(s): N17.9 - ACUTE KIDNEY FAILURE, UNSPECIFIED (3) Diabetes Assessment/Plan: -A1c at 10.0 -Diabetic sodium diet -Hypoglycemic this am 2/2 to erratic eating pattern in the ER -Would decrease levemir to 30 U for now -BGM AC HS -ISS -Endocrine consult Problems reviewed: Yes Code(s): E11.9 - TYPE 2 DIABETES MELLITUS WITHOUT COMPLICATIONS (4) CAD (coronary artery disease) Assessment/Plan: -LDL at 157 with goal <70 mg/dl -Continue rosuvastatin 40 mg po daily -Add Zetia 10 mg po daily Problems reviewed: Yes Code(s): I25.10 - ATHSCL HEART DISEASE OF [place] CORONARY ARTERY W/O ANG PCTRS Assessment/Plan See problem list DVT ppx
--- NOTE | 2019-08-24 11:09 | EKG ---
Test Reason : Blood Pressure : / mmHG Vent. Rate : 064 BPM Atrial Rate : 064 BPM P-R Int : 172 ms QRS Dur : 096 ms QT Int : 434 ms P-R-T Axes : 041 014 067 degrees QTc Int : 447 ms NORMAL SINUS RHYTHM INFERIOR INFARCT , AGE UNDETERMINED LEFT VENTRICULAR HYPERTROPHY NONSPECIFIC ST ABNORMALITY ABNORMAL ECG Confirmed by MD MANA, AMANUEL ([id number]) on 08/24/2019 11:08:43 AM Referred By: WILFRID HUMPHREY Confirmed By:AMANUEL ADAIR MD
--- NOTE | 2019-08-24 12:22 | ECHO ---
Version: 1 Name: JOANNE PAN Exam: Adult Echocardiogram Study Date: 08/24/2019, 10:46 AM Age: 69 Years MMode/2D Measurements & Calculations IVSd: 1.10 cm LVIDs: 3.2 cm LVIDd: 4.1 cm LVPWd: 1.46 cm ACS: 1.43 cm Ao root diam: 3.0 cm LVOT diam: 1.57 cm LA dimension: 3.5 cm Doppler Measurements & Calculations MV E max rito: 112.0 cm/sec MVA(VTI): 1.37 cm MV A max rito: 41.7 cm/sec MV V2 max: 110.1 cm/sec MV mean P.25 mmHg MV max P.8 mmHg MV E/A: 2.7 Med E/e': 19.1 Lat E/e': 10.4 Med Peak E' Rito: 5.9 cm/sec Lat Peak E' Rito: 10.8 cm/sec MR max P.5 mmHg Ao max P.6 mmHg KAYCEE(I,D): 0.83 cm Ao mean P.0 mmHg LV V1 mean: 55.8 cm/sec Ao V2 max: 203.6 cm/sec LV V1 mean P.46 mmHg TR max rito: 262.4 cm/sec TR max P.6 mmHg Procedure Images were not obtained from all of the standard acoustic windows due to the limited scope of the s gen[place]ieve. Left Ventricle The left ventricle is grossly normal size. There is normal left ventricular wall thickness. Left jermain tricular systolic function is moderately reduced. Ejection Fraction = 40%. The transmitral spectral Doppler f low pattern is suggestive of pseudonormalization. There is septal dyskinesis. There is posterior wall ak inesis. Right Ventricle The right ventricle is normal in size and function. Atria Normal left and right atrial size and function. Mitral Valve There is mild to moderate mitral annular calcification. There is mild to moderate mitral regurgitati on. Tricuspid Valve The tricuspid valve is not well visualized, but is grossly normal. There is moderate tricuspid regur gitation. Aortic Valve Calcified Aortic valve with reduced systolic opening. Moderate valvular aortic stenosis. Pulmonic Valve The pulmonic valve is not well visualized. Great Vessels The aortic root is normal size. Normal aortic arch, descending and ascending aorta. Pericardium/Pleura There is no pericardial effusion. Summary Statements Images were not obtained from all of the standard acoustic windows due to the limited scope of the s tudy. The left ventricle is grossly normal size. There is normal left ventricular wall thickness. There is septal dyskinesis. There is posterior wall akinesis. Left ventricular systolic function is moderately reduced. Ejection Fraction = 40%. The transmitral spectral Doppler flow pattern is suggestive of pseudonormalization. The right ventricle is normal in size and function. Normal left and right atrial size and function. There is mild to moderate mitral annular calcification. There is mild to moderate mitral regurgitation. The tricuspid valve is not well visualized, but is grossly normal. There is moderate tricuspid regurgitation. Moderate valvular aortic stenosis. The pulmonic valve is not well visualized. The aortic root is normal size. Normal aortic arch, descending and ascending aorta There is no pericardial effusion. Kareem [place]emberg 08/24/2019, 12:22 PM Ordering Physician: Wilfrid Rose Referring Physician: WILFRID ROSE Performed By: Ryann Monet
[2019-08-24] MEDS: EZETIMIBE 10 MG TABLET (FP) PO SCH (15:14)
[2019-08-24] MEDS: HEPARIN NA (PORCINE) 5,000 UNITS/ML 1ML VIAL SQ SCH ×2 (15:14→22:43)
[2019-08-24] MEDS: TAMSULOSIN HCL 0.4 MG CAP PO SCH (22:43)
--- NOTE | 2019-08-24 23:12 | CONSULT ---
Consult Consult Specialty:: endocrine Referred by:: Selena JOE Reason for Consultation:: T2DM NEUROPATHY - History of Present Illness Chief Complaint: HIGH SUGAR AND EPISODES OF LOW History of Present Illness: 69 year old male with PMH UNCONTROLLED T2DM,HTN, HLD, CAD s/p CABG, w / neuropathy presented with chest pain. weakness ,dyspnea on exertion,numbness in legs difficulty walking or doing activity of daily living.poor apetite nausea and upset stomache.he denies nausea vomiting,fever or chills. 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 History of Recent Travel: No Home Medications - Allergies Allergies/Adverse Reactions: Allergies Allergy/AdvReac Type Severity Reaction Status Date / Time No Known Allergies Allergy Verified 08/23/19 11:32 - Home Medications Home Medications: Ambulatory Orders Rosuvastatin [Crestor -] 40 mg PO DAILY 07/19/16 Tamsulosin HCl [Flomax] 0.4 mg PO HS #7 cap.er.24h 06/07/17 Amlodipine Besylate [Norvasc -] 10 mg PO DAILY tablet 12/29/17 Hydrochlorothiazide [Hctz -] 12.5 mg PO DAILY 07/10/19 Insulin Sliding Scale [Novolog Vial Sliding Scale -] 7 units SQ TIDAC 07/10/19 Metoprolol Succinate [Toprol Xl] 50 mg PO BID 07/10/19 Furosemide [Lasix -] 20 mg PO DAILY #2 tablet 07/27/19 Potassium Chloride [K-Dur -] 10 meq PO DAILY #2 tablet.er 07/27/19 Aspirin [Aspirin EC] 81 mg PO DAILY 08/23/19 Insulin Degludec [Tresiba Flextouch U-200] 50 unit SQ DAILY 08/23/19 Review of Systems - Review of Systems Constitutional: reports: Loss of Appetite, Weakness Eyes: reports: Blurred Vision HENT: reports: No Symptoms Neck: reports: No Symptoms Cardiovascular: reports: Shortness of Breath Respiratory: reports: Exercise Intolerance, SOB on Exertion Gastrointestinal: reports: Bloating, Constipation Genitourinary: reports: No Symptoms Breasts: reports: No Symptoms Reported Musculoskeletal: reports: Joint Pain, Joint Swelling Neurological: reports: Weakness Endocrine: reports: Unexplained Weight Gain Physical Exam Vital Signs: Vital Signs Temperature 98 F 08/24/19 13:48 Pulse Rate 66 08/24/19 13:48 Respiratory Rate 18 08/24/19 13:48 Blood Pressure 113/62 08/24/19 13:48 O2 Sat by Pulse Oximetry (%) 98 08/24/19 12:53 Constitutional: Yes: Anxious Eyes: Yes: EOM Intact HENT: Yes: Normocephalic Neck: Yes: Trachea Midline Cardiovascular: Yes: Regular Rate and Rhythm Respiratory: Yes: CTA Bilaterally Gastrointestinal: Yes: Normal Bowel Sounds ...Rectal Exam: Yes: Deferred Renal/: Yes: WNL Breast(s): Yes: WNL Musculoskeletal: Yes: WNL Extremities: Yes: Delayed Capillary Refill Neurological: Yes: Alert, Oriented Labs: CBC, BMP 08/24/19 06:24 08/24/19 06:24 Problem List - Problems (1) Type 2 diabetes mellitus with hyperglycemia Problems reviewed: Yes Code(s): E11.65 - TYPE 2 DIABETES MELLITUS WITH HYPERGLYCEMIA (2) Chest pain due to CAD Problems reviewed: Yes Code(s): I25.119 - ATHSCL HEART DISEASE OF [place] COR ART W UNSP ANG PCTRS (3) FRANKI (acute kidney injury) Problems reviewed: Yes Code(s): N17.9 - ACUTE KIDNEY FAILURE, UNSPECIFIED (4) Acute kidney injury superimposed on CKD Problems reviewed: Yes Code(s): N17.9 - ACUTE KIDNEY FAILURE, UNSPECIFIED; N18.9 - CHRONIC KIDNEY DISEASE, UNSPECIFIED (5) BPH (benign prostatic hypertrophy) Problems reviewed: Yes Code(s): N40.0 - BENIGN PROSTATIC HYPERPLASIA WITHOUT LOWER URINRY TRACT SYMP (6) CAD (coronary artery disease) Code(s): I25.10 - ATHSCL HEART DISEASE OF [place] CORONARY ARTERY W/O ANG PCTRS (7) Congestive heart failure Code(s): I50.9 - HEART FAILURE, UNSPECIFIED Qualifiers: Heart failure type: combined systolic and diastolic Assessment/Plan Current Active Problems Chest pain due to CAD (Acute) T2DM diabetic neuropathy hld/ashd chest pain cad ashd htn Laboratory Results - last 24 hr 08/23/19 08/24/19 08/24/19 12:20 00:05 06:24 WBC 7.4 RBC 3.84 L Hgb 11.0 L Hct 32.7 L MCV 85.0 MCH 28.7 MCHC 33.8 RDW 15.4 Plt Count 150 D MPV 10.1 Absolute Neuts (auto) 5.5 Neutrophils % 74.2 Lymphocytes % 10.8 Monocytes % 11.8 H Eosinophils % 2.7 D Basophils % 0.5 Nucleated RBC % 0 Sodium 133 L Potassium 3.9 Chloride 99 Carbon Dioxide 23 Anion Gap 10 BUN 52.5 H Creatinine 2.3 H Est GFR (CKD-EPI)AfAm 32.60 Est GFR (CKD-EPI)NonAf 28.13 POC Glucometer Random Glucose 319 H Hemoglobin A1c % Calcium 9.2 Magnesium 2.5 H Total Bilirubin 0.3 AST 20 ALT 28 Alkaline Phosphatase 79 Creatine Kinase 124 Troponin I 0.02 1.93 H* Total Protein 8.1 Albumin 3.8 Triglycerides 146 Cholesterol 247 H Total LDL Cholesterol 157 H HDL Cholesterol 55 08/24/19 08/24/19 08/24/19 06:24 06:24 06:25 WBC RBC Hgb Hct MCV MCH MCHC RDW Plt Count MPV Absolute Neuts (auto) Neutrophils % Lymphocytes % Monocytes % Eosinophils % Basophils % Nucleated RBC % Sodium 136 Potassium 4.4 Chloride 104 Carbon Dioxide 24 Anion Gap 8 BUN 52.3 H Creatinine 2.1 H Est GFR (CKD-EPI)AfAm 36.39 Est GFR (CKD-EPI)NonAf 31.40 POC Glucometer 195 Random Glucose 221 H Hemoglobin A1c % 10.2 H Calcium 8.3 L Magnesium Total Bilirubin 0.2 AST 19 ALT 24 Alkaline Phosphatase 61 Creatine Kinase Troponin I Total Protein 6.6 Albumin 3.1 L Triglycerides Cholesterol Total LDL Cholesterol HDL Cholesterol 08/24/19 08/24/19 08/24/19 08:50 09:01 10:20 WBC RBC Hgb Hct MCV MCH MCHC RDW Plt Count MPV Absolute Neuts (auto) Neutrophils % Lymphocytes % Monocytes % Eosinophils % Basophils % Nucleated RBC % Sodium Potassium Chloride Carbon Dioxide Anion Gap BUN Creatinine Est GFR (CKD-EPI)AfAm Est GFR (CKD-EPI)NonAf POC Glucometer 48 83 Random Glucose Hemoglobin A1c % Calcium Magnesium Total Bilirubin AST ALT Alkaline Phosphatase Creatine Kinase Troponin I 1.15 H* Total Protein Albumin Triglycerides Cholesterol Total LDL Cholesterol HDL Cholesterol 08/24/19 08/24/19 08/24/19 11:27 12:41 16:38 WBC RBC Hgb Hct MCV MCH MCHC RDW Plt Count MPV Absolute Neuts (auto) Neutrophils % Lymphocytes % Monocytes % Eosinophils % Basophils % Nucleated RBC % Sodium Potassium Chloride Carbon Dioxide Anion Gap BUN Creatinine Est GFR (CKD-EPI)AfAm Est GFR (CKD-EPI)NonAf POC Glucometer 253 341 320 Random Glucose Hemoglobin A1c % Calcium Magnesium Total Bilirubin AST ALT Alkaline Phosphatase Creatine Kinase Troponin I Total Protein Albumin Triglycerides Cholesterol Total LDL Cholesterol HDL Cholesterol 08/24/19 22:42 WBC RBC Hgb Hct MCV MCH MCHC RDW Plt Count MPV Absolute Neuts (auto) Neutrophils % Lymphocytes % Monocytes % Eosinophils % Basophils % Nucleated RBC % Sodium Potassium Chloride Carbon Dioxide Anion Gap BUN Creatinine Est GFR (CKD-EPI)AfAm Est GFR (CKD-EPI)NonAf POC Glucometer 218 Random Glucose Hemoglobin A1c % Calcium Magnesium Total Bilirubin AST ALT Alkaline Phosphatase Creatine Kinase Troponin I Total Protein Albumin Triglycerides Cholesterol Total LDL Cholesterol HDL Cholesterol plan: bgm achs novolog scale levemir 35 units am levemir 15 untis hs cardiology workup in progress statin and asa renal consult
[2019-08-25] MEDS: INSULIN SLIDING SCALE (NOVOLOG) 1 VIAL SQ SCH ×4 (06:38→21:59)
[2019-08-25] MEDS ORDERED: INSULIN (LEVEMIR) 100 UNITS/ML UNITS SQ SCH (07:00)
[2019-08-25] MEDS ORDERED: HEPARIN NA (PORCINE) 5,000 UNITS/ML 1ML VIAL IVPUSH PRN ×2 (09:23)
[2019-08-25] MEDS ORDERED: HEPARIN - 25,000 UNIT in SODIUM CHLORIDE 495 ML IV SCH (10:00)
[2019-08-25] MEDS ORDERED: CLOPIDOGREL BISULFATE 75 MG TABLET (FP) PO SCH (10:00)
--- NOTE | 2019-08-25 10:09 | PN ---
Progress Note, Physician Chief Complaint: Chest Pain Elevated Troponin Dizziness History of Present Illness: Previous notes and events reviewed awake and alert NAD ambulated well with PT denies chest pain or SOB on exertion repeat troponin showing downtrend - Current Medication List Current Medications: Active Medications Amlodipine Besylate (Norvasc -) 10 mg PO DAILY [facility] Last Admin: 08/24/19 09:45 Dose: 10 mg Aspirin (Ecotrin -) 81 mg PO DAILY [facility] Last Admin: 08/24/19 09:44 Dose: 81 mg Clopidogrel Bisulfate (Plavix -) 75 mg PO DAILY [facility] Ezetimibe (Zetia -) 10 mg PO DAILY [facility] Last Admin: 08/24/19 15:14 Dose: Not Given Furosemide (Lasix -) 20 mg PO DAILY [facility] Last Admin: 08/24/19 09:45 Dose: 20 mg Heparin Sodium (Porcine) (Heparin -) 1,000 unit IVPUSH PRN PRN PRN Reason: Heparin Heparin Sodium (Porcine) (Heparin -) 5,000 unit IVPUSH PRN PRN PRN Reason: Heparin Heparin Sodium (Porcine) 25, (000 unit/ Sodium Chloride) 500 mls @ 16 mls/hr IV TITR [facility]; Protocol Insulin Aspart (Novolog Vial Sliding Scale -) 1 vial SQ ACHS [facility]; Protocol Last Admin: 08/25/19 06:38 Dose: 8 units Insulin Detemir (Levemir Vial) 30 units SQ DAILY@0700 [facility] Last Admin: 08/25/19 06:37 Dose: 30 units Meclizine HCl (Antivert -) 12.5 mg PO Q6H PRN PRN Reason: VERTIGO Metoprolol Succinate (Toprol Xl -) 50 mg PO BID [facility] Last Admin: 08/24/19 22:43 Dose: 50 mg Morphine Sulfate (Morphine Sulfate) 0.5 mg IVPUSH Q15M PRN PRN Reason: CHEST PAIN Nitroglycerin (Nitrostat -) 0.4 mg SL Q5M PRN PRN Reason: FOR CHEST PAIN Potassium Chloride (K-Dur -) 10 meq PO DAILY [facility] Last Admin: 08/24/19 09:44 Dose: 10 meq Rosuvastatin Calcium (Crestor -) 40 mg PO DAILY [facility] Tamsulosin HCl (Flomax -) 0.4 mg PO HS [facility] Last Admin: 08/24/19 22:43 Dose: 0.4 mg - Objective Vital Signs: Vital Signs Temperature 97.7 F 08/25/19 09:00 Pulse Rate 64 08/25/19 09:00 Respiratory Rate 20 08/25/19 09:00 Blood Pressure 131/75 08/25/19 09:00 O2 Sat by Pulse Oximetry (%) 97 08/24/19 21:00 Constitutional: Yes: No Distress, Calm Eyes: Yes: Conjunctiva Clear HENT: Yes: Atraumatic Cardiovascular: Yes: Regular Rate and Rhythm Respiratory: Yes: Regular, CTA Bilaterally Gastrointestinal: Yes: Normal Bowel Sounds, Soft Musculoskeletal: Yes: WNL Extremities: Yes: WNL Edema: No Neurological: Yes: Alert, Oriented Psychiatric: Yes: Alert, Oriented Labs: CBC, BMP 08/24/19 06:24 08/24/19 06:24 INR, PTT INR 0.92 (0.83-1.09) 08/23/19 12:20 Problem List - Problems (1) Chest pain due to CAD Assessment/Plan: -Cardiology on board -Tele monitoring -Trop 0.02~1.93~1.15 -Nitro SL prn for chest pain -Echocardiogram -Stress test showed inferior akinesis, sevre septal hyperkinesis, EF 26% , large severe intensity, fixed inferior and inferolateral perfusion defet consistent with prior infarct with minimal edwar-infarct ischemia -Heparin drip started Code(s): I25.119 - ATHSCL HEART DISEASE OF [place] COR ART W RUST PCTRS (2) Type 2 diabetes mellitus with hyperglycemia Assessment/Plan: -BGM ACHS -ISS -Levemir 30U SQ daily -low Na/diabetic diet -HgA1c 10.2% Code(s): E11.65 - TYPE 2 DIABETES MELLITUS WITH HYPERGLYCEMIA (3) FRANKI (acute kidney injury) Assessment/Plan: -BUN/Cr 52.3/2.1 -monitor renal function Code(s): N17.9 - ACUTE KIDNEY FAILURE, UNSPECIFIED (4) BPH (benign prostatic hypertrophy) Assessment/Plan: -Tamsulosin Code(s): N40.0 - BENIGN PROSTATIC HYPERPLASIA WITHOUT LOWER URINRY TRACT SYMP (5) Congestive heart failure Assessment/Plan: -Furosemide -Fluid restriction -strict I&O -daily weights Code(s): I50.9 - HEART FAILURE, UNSPECIFIED Qualifiers: Heart failure type: combined systolic and diastolic (6) Elevated troponin Assessment/Plan: -Cardiology on board -Tele monitoring -Trop 0.02~1.93~1.15 -Nitro SL prn for chest pain -Echocardiogram -Stress test 214/20 showed inferior akinesis, sevre septal hyperkinesis, EF 26% , large severe intensity, fixed inferior and inferolateral perfusion defet consistent with prior infarct with minimal edwar-infarct ischemia -Heparin drip started Code(s): R79.89 - OTHER SPECIFIED ABNORMAL FINDINGS OF BLOOD CHEMISTRY (7) HTN (hypertension) Assessment/Plan: -Amlodipine -low Na/diabetic diet Code(s): I10 - ESSENTIAL (PRIMARY) HYPERTENSION (8) CAD (coronary artery disease) Assessment/Plan: -Cardiology on board -Aspirin, Plavix -Rosuvastatin, Zetia Code(s): I25.10 - ATHSCL HEART DISEASE OF [place] CORONARY ARTERY W/O ANG PCTRS Assessment/Plan see problem list
[2019-08-25] MEDS: amLODIPine BESYLATE 10 MG TABLET (FP) PO SCH (11:40)
[2019-08-25] MEDS: EZETIMIBE 10 MG TABLET (FP) PO SCH (11:40)
[2019-08-25] MEDS: POTASSIUM CHLORIDE TABS 10 MEQ TABLET.ER (FP) PO SCH (11:40)
[2019-08-25] MEDS: ASPIRIN COATED 81 MG TABLET.EC PO SCH (11:40)
[2019-08-25] MEDS: FUROSEMIDE 20 MG TABLET (FP) PO SCH (11:40)
--- NOTE | 2019-08-25 12:29 | PN ---
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: s: no further cp. no sob palps dizzy no cigs Current Medications Generic Name Dose Route Start Last Admin Trade Name Freq PRN Reason Stop Dose Admin Amlodipine Besylate 10 mg 08/24/19 10:00 08/25/19 11:40 Norvasc - PO 10 mg DAILY [facility] Administration Aspirin 81 mg 08/24/19 10:00 08/25/19 11:40 Ecotrin - PO 81 mg DAILY [facility] Administration Clopidogrel Bisulfate 75 mg 08/25/19 10:00 08/25/19 11:40 Plavix - PO 75 mg DAILY [facility] Administration Ezetimibe 10 mg 08/24/19 10:30 08/25/19 11:40 Zetia - PO 10 mg DAILY [facility] Administration Furosemide 20 mg 08/24/19 10:00 08/25/19 11:40 Lasix - PO 20 mg DAILY [facility] Administration Heparin Sodium (Porcine) 1,000 unit 08/25/19 09:23 Heparin - IVPUSH PRN PRN Heparin Heparin Sodium (Porcine) 5,000 unit 08/25/19 09:23 Heparin - IVPUSH PRN PRN Heparin Heparin Sodium (Porcine) 25, 500 mls @ 16 mls/hr 08/25/19 10:00 000 unit/ Sodium Chloride IV TITR [facility] Protocol 800 UNIT/HR Insulin Aspart 1 vial 08/23/19 22:00 08/25/19 11:38 Novolog Vial Sliding Scale - SQ 2 units ACHS [facility] Administration Protocol Insulin Detemir 30 units 08/25/19 07:00 08/25/19 06:37 Levemir Vial SQ 30 units DAILY@0700 [facility] Administration Meclizine HCl 12.5 mg 08/23/19 16:40 Antivert - PO Q6H PRN VERTIGO Metoprolol Succinate 50 mg 08/23/19 22:00 08/25/19 11:40 Toprol Xl - PO 50 mg BID [facility] Administration Morphine Sulfate 0.5 mg 08/24/19 10:04 Morphine Sulfate IVPUSH Q15M PRN CHEST PAIN Nitroglycerin 0.4 mg 08/24/19 10:04 Nitrostat - SL Q5M PRN FOR CHEST PAIN Potassium Chloride 10 meq 08/24/19 10:00 08/25/19 11:40 K-Dur - PO 10 meq DAILY [facility] Administration Rosuvastatin Calcium 40 mg 08/24/19 10:00 Crestor - PO DAILY [facility] Tamsulosin HCl 0.4 mg 08/23/19 22:00 08/24/19 22:43 Flomax - PO 0.4 mg HS [facility] Administration Vital Signs Period Temp Pulse Resp BP Sys/Mcconnell Pulse Ox Last 24 Hr 97.5 F-98 F 61-71 18-20 113-142/62-78 97-98 nad no jvd rrr s1s2 no mrg cta bl nl eff aao3 no le e/c/c abd nt nd pos bs no jaundice diaphoresis pos dp pt Laboratory Last Values WBC 7.4 K/mm3 (4.0-10.0) 08/24/19 06:24 RBC 3.84 M/mm3 (4.00-5.60) L 08/24/19 06:24 Hgb 11.0 GM/dL (11.7-16.9) L 08/24/19 06:24 Hct 32.7 % (35.4-49) L 08/24/19 06:24 MCV 85.0 fl (80-96) 08/24/19 06:24 MCH 28.7 pg (25.7-33.7) 08/24/19 06:24 MCHC 33.8 g/dl (32.0-35.9) 08/24/19 06:24 RDW 15.4 % (11.9-15.9) 08/24/19 06:24 Plt Count 150 K/MM3 (134-434) D 08/24/19 06:24 MPV 10.1 fl (7.5-11.1) 08/24/19 06:24 Absolute Neuts (auto) 5.5 K/mm3 (1.5-8.0) 08/24/19 06:24 Neutrophils % 74.2 % (42.8-82.8) 08/24/19 06:24 Lymphocytes % 10.8 % (8-40) 08/24/19 06:24 Monocytes % 11.8 % (3.8-10.2) H 08/24/19 06:24 Eosinophils % 2.7 % (0-4.5) D 08/24/19 06:24 Basophils % 0.5 % (0-2.0) 08/24/19 06:24 Nucleated RBC % 0 % (0-0) 08/24/19 06:24 PT with INR 10.90 SEC (9.7-13.0) 08/23/19 12:20 INR 0.92 (0.83-1.09) 08/23/19 12:20 PTT (Actin FS) 33.2 SECONDS (25.2-36.5) 08/23/19 12:20 Sodium 136 mmol/L (136-145) 08/24/19 06:24 Potassium 4.4 mmol/L (3.5-5.1) 08/24/19 06:24 Chloride 104 mmol/L (98-107) 08/24/19 06:24 Carbon Dioxide 24 mmol/L (21-32) 08/24/19 06:24 Anion Gap 8 MMOL/L (8-16) 08/24/19 06:24 BUN 52.3 mg/dL (7-18) H 08/24/19 06:24 Creatinine 2.1 mg/dL (0.55-1.3) H 08/24/19 06:24 Est GFR (CKD-EPI)AfAm 36.39 08/24/19 06:24 Est GFR (CKD-EPI)NonAf 31.40 08/24/19 06:24 POC Glucometer 179 UNITS (80-120) 08/25/19 11:37 Random Glucose 221 mg/dL (74-106) H 08/24/19 06:24 Hemoglobin A1c % 10.2 % (4.2-6.3) H 08/24/19 06:24 Calcium 8.3 mg/dL (8.5-10.1) L 08/24/19 06:24 Magnesium 2.5 mg/dL (1.8-2.4) H 08/23/19 12:20 Total Bilirubin 0.2 mg/dL (0.2-1) 08/24/19 06:24 AST 19 U/L (15-37) 08/24/19 06:24 ALT 24 U/L (13-61) 08/24/19 06:24 Alkaline Phosphatase 61 U/L (45-117) 08/24/19 06:24 Creatine Kinase 124 U/L (26-308) 08/23/19 12:20 Troponin I 1.15 ng/ml (0.00-0.05) H* 08/24/19 10:20 Total Protein 6.6 g/dl (6.4-8.2) 08/24/19 06:24 Albumin 3.1 g/dl (3.4-5.0) L 08/24/19 06:24 Triglycerides 146 mg/dL (0-150) 08/23/19 12:20 Cholesterol 247 mg/dL (50-200) H 08/23/19 12:20 Total LDL Cholesterol 157 mg/dL (5-100) H 08/23/19 12:20 HDL Cholesterol 55 mg/dL (40-60) 08/23/19 12:20 tele: sr echo 08/2019: tds, lvef 40, nl rv, mild-mod mr, mod tr, mod as a/p: 69 m hx cad s/p pci's, cabg 2015, chf, htn, hld, dm, ckd, here with cp, dizzy. cp, cad, nstemi: -cp resolved currently -ecg w/o acute findings -tele benign, cont tele -rise of trop pattern consistent with nstemi. -cont dapt (was on at home as well). start hep gtt. -d/w interventionalist, will transfer to [facility] today for cath/pci -cont statin, bb chronic syst chf: -lvef fluctuates between mod decreased to normal on echo last year. current echo with lvef 40%. Plan for cath as above. No signs vol overload. Cont bb. No mal 2/2 ckd. htn: -cont current meds hld: -cont statin ckd: -cr at baseline
[2019-08-25] MEDS ORDERED: PT OWN MED DRAWER 7, Y5N ONE (12:34)
[2019-08-25] MEDS ORDERED: INSULIN (NOVOLOG) ASPART 100 UNITS/ML 10ML VIAL ONE (14:17)
[2019-08-25] MEDS: TAMSULOSIN HCL 0.4 MG CAP PO SCH (21:58)
[2019-08-26] MEDS ORDERED: MAG HYDROX/AL HYDROX/SIMETH 30 ML UNIT-DOSE CUP PO ONE (01:27)
--- NOTE | 2019-08-26 01:30 | HOSP ---
Subjective - Review of Symptoms Events since last encounter: Hospitalist Encounter Notified by the RN, that the patient reports dyspepsia after eating a [place] this morning. Was asked to assess. Gastrointestinal: Yes: Nausea, Other (Dyspepsia). No: Abdominal Pain Physical Examination Vital Signs: Vital Signs Temperature 98.0 F 08/25/19 21:00 Pulse Rate 66 08/25/19 21:00 Respiratory Rate 20 08/25/19 21:00 Blood Pressure 135/78 08/25/19 21:00 O2 Sat by Pulse Oximetry (%) 97 08/25/19 21:00 Constitutional: Yes: No Distress, Calm Eyes: Yes: WNL, Conjunctiva Clear, EOM Intact, PERRL HENT: Yes: WNL, Atraumatic, Normocephalic Neck: Yes: WNL, Supple, Trachea Midline Cardiovascular: Yes: WNL, Regular Rate and Rhythm, S1, S2 Respiratory: Yes: WNL, Regular, CTA Bilaterally Gastrointestinal: Yes: Soft, Hypoactive Bowel Sounds. No: Distention, Tenderness, Tenderness, Epigastrium, Tenderness, Rebound ...Rectal Exam: Yes: Deferred Renal/: Yes: WNL Breast(s): Yes: WNL Musculoskeletal: Yes: WNL Extremities: Yes: WNL Edema: No Peripheral Pulses WNL: Yes Neurological: Yes: WNL, Alert, Oriented, Cran Nerves II-XII Intact ...Motor Strength: WNL Psychiatric: Yes: WNL Labs: CBC, BMP 08/24/19 06:24 08/24/19 06:24 Laboratory Results - last 24 hr 08/25/19 08/25/19 08/25/19 05:37 11:37 17:28 PTT (Actin FS) POC Glucometer 314 179 214 08/25/19 08/25/19 20:30 21:22 PTT (Actin FS) 53.5 H POC Glucometer 211 Current Medications Generic Name Dose Route Start Last Admin Trade Name Freq PRN Reason Stop Dose Admin Al Hydroxide/Mg Hydroxide 30 ml 08/26/19 01:27 Mylanta Suspension - PO 08/26/19 01:28 ONCE ONE Amlodipine Besylate 10 mg 08/24/19 10:00 08/25/19 11:40 Norvasc - PO 10 mg DAILY [facility] Administration Aspirin 81 mg 08/24/19 10:00 08/25/19 11:40 Ecotrin - PO 81 mg DAILY [facility] Administration Clopidogrel Bisulfate 75 mg 08/25/19 10:00 08/25/19 11:40 Plavix - PO 75 mg DAILY [facility] Administration Ezetimibe 10 mg 08/24/19 10:30 08/25/19 11:40 Zetia - PO 10 mg DAILY [facility] Administration Furosemide 20 mg 08/24/19 10:00 08/25/19 11:40 Lasix - PO 20 mg DAILY [facility] Administration Heparin Sodium (Porcine) 1,000 unit 08/25/19 09:23 Heparin - IVPUSH PRN PRN Heparin Heparin Sodium (Porcine) 5,000 unit 08/25/19 09:23 Heparin - IVPUSH PRN PRN Heparin Heparin Sodium (Porcine) 25, 500 mls @ 16 mls/hr 08/25/19 10:00 08/25/19 21: 59 000 unit/ Sodium Chloride IV 800 unit/hr TITR [facility] 16 mls/hr Titration Protocol 800 UNIT/HR Insulin Aspart 1 vial 08/23/19 22:00 08/25/19 21:59 Novolog Vial Sliding Scale - SQ 4 units ACHS [facility] Administration Protocol Insulin Detemir 30 units 08/25/19 07:00 08/25/19 06:37 Levemir Vial SQ 30 units DAILY@0700 [facility] Administration Meclizine HCl 12.5 mg 08/23/19 16:40 Antivert - PO Q6H PRN V[facility]O Metoprolol Succinate 50 mg 08/23/19 22:00 08/25/19 21:59 Toprol Xl - PO 50 mg BID [facility] Administration Morphine Sulfate 0.5 mg 08/24/19 10:04 Morphine Sulfate IVPUSH Q15M PRN CHEST PAIN Nitroglycerin 0.4 mg 08/24/19 10:04 Nitrostat - SL Q5M PRN FOR CHEST PAIN Potassium Chloride 10 meq 08/24/19 10:00 08/25/19 11:40 K-Dur - PO 10 meq DAILY [facility] Administration Rosuvastatin Calcium 40 mg 08/24/19 10:00 Crestor - PO DAILY [facility] Tamsulosin HCl 0.4 mg 08/23/19 22:00 08/25/19 21:58 Flomax - PO 0.4 mg HS [facility] Administration Hospitalist Encounter Assessment: This is a 69 man with a PMHx of CAD s/p pci's, CABG (2015), CHF, HTN, HLD, DM, CKD. Admitted for Chest Pain. Dyspepsia Likely secondary to eating the [place] Patient denies Chest Pain, Abdominal Pain, +nausea Maalox Plan; Maalox x1
[2019-08-26 05:38] VITALS: PULSE 61
[2019-08-26] MEDS: INSULIN SLIDING SCALE (NOVOLOG) 1 VIAL SQ SCH (06:57)
[2019-08-26 08:00] LABS: ALBUMIN 3.4 g/dl (3.4-5.0); BILIRUBIN,TOTAL 0.4 mg/dL (0.2-1); BLOOD UREA NITROGEN 84.6 mg/dL (7-18); CALCIUM 8.4 mg/dL (8.5-10.1); POTASSIUM 5.2 mmol/L (3.5-5.1); TOT PROT 7.3 g/dl (6.4-8.2)
[2019-08-26 08:03] VITALS: BP 134/73; TEMP 97.6
== END 2019-08-26 09:06 | disposition short-term general hospital (02) | DRG 281 ==
LOC: JER 11:18 → JERBED 12:42 → J4W 08-24 12:09
PROVIDERS: ADMIT Family Medicine; ATTEND Family Medicine
DX: I21.4 Non-ST elevation (NSTEMI) myocardial infarction (principal); I13.0 Hypertensive heart and chronic kidney disease with heart failure and stage 1 through stage 4 chronic kidney disease, or unspecified chronic kidney disease; N17.9 Acute kidney failure, unspecified; I50.42 Chronic combined systolic (congestive) and diastolic (congestive) heart failure; I25.10 Atherosclerotic heart disease of native coronary artery without angina pectoris; Z95.1 Presence of aortocoronary bypass graft; E78.00 Pure hypercholesterolemia, unspecified; Z79.4 Long term (current) use of insulin; E11.22 Type 2 diabetes mellitus with diabetic chronic kidney disease; N18.9 Chronic kidney disease, unspecified; E11.65 Type 2 diabetes mellitus with hyperglycemia; E11.40 Type 2 diabetes mellitus with diabetic neuropathy, unspecified; N40.0 Benign prostatic hyperplasia without lower urinary tract symptoms; K59.00 Constipation, unspecified; R42 Dizziness and giddiness; R10.13 Epigastric pain; R79.89 Other specified abnormal findings of blood chemistry
CPT/HCPCS: 36415; 71045-TC-FY; 80053; 80061; 82550; 82962; 83036; 83721; 83735; 84484; 85025; 85610; 85730; 93005; 93010; 93306-TC; 97116-GP; 97161-GP; 99285-25; J1644; J7030

== ENCOUNTER 2020-02-07 10:04 | Day surgery (SDC) | payer OTHER ==
[2020-02-07] MEDS ORDERED: ERTAPENEM SODIUM 1 GM in DEXTROSE 5%-WATER - 50 ML IVPB ONE (10:30)
[2020-02-07] MEDS ORDERED: ERTAPENEM SODIUM 1 GM VIAL ONE (10:39)
[2020-02-07] MEDS ORDERED: DEXTROSE 5%-WATER - 50 ML IVPB ONE (10:39)
[2020-02-07 11:31] VITALS: BP 150/71; PULSE 70; TEMP 98.4
== END 2020-02-07 11:33 | disposition home or self-care (01) ==
LOC: J7W 10:04 → JINFUSION 10:04
PROVIDERS: ATTEND Internal Medicine
DX: L97.518 Non-pressure chronic ulcer of other part of right foot with other specified severity (principal)
CPT/HCPCS: 82962; 96365

== ENCOUNTER 2020-02-08 10:25 | Day surgery (SDC) | payer OTHER ==
[2020-02-08] MEDS ORDERED: ERTAPENEM SODIUM 1 GM in SODIUM CHLORIDE 50 ML IVPB ONE (10:45)
[2020-02-08] MEDS ORDERED: ERTAPENEM SODIUM 1 GM VIAL ONE (11:00)
[2020-02-08] MEDS ORDERED: SODIUM CHLORIDE 50 ML IVPB ONE (11:00)
[2020-02-08 12:12] VITALS: BP 133/74; PULSE 71; TEMP 97.8
== END 2020-02-08 12:24 | disposition home or self-care (01) ==
LOC: JINFUSION 10:25 → J7W 10:26 → JINFUSION 12:24
PROVIDERS: ATTEND Internal Medicine
DX: L97.518 Non-pressure chronic ulcer of other part of right foot with other specified severity (principal)
CPT/HCPCS: 96365

== ENCOUNTER 2020-02-09 12:10 | Day surgery (SDC) | payer OTHER ==
[2020-02-09] MEDS ORDERED: DEXTROSE 5%-WATER - 50 ML IVPB ONE (13:10)
[2020-02-09] MEDS ORDERED: ERTAPENEM SODIUM 1 GM VIAL ONE (13:10)
[2020-02-09] MEDS ORDERED: ERTAPENEM SODIUM 1 GM in DEXTROSE 5%-WATER - 50 ML IVPB ONE (13:15)
[2020-02-09 13:21] VITALS: BP 146/66; PULSE 71; TEMP 98.2
== END 2020-02-09 14:48 | disposition home or self-care (01) ==
LOC: JINFUSION 12:10 → J7W 12:11 → JINFUSION 14:48
PROVIDERS: ATTEND Internal Medicine
DX: L97.518 Non-pressure chronic ulcer of other part of right foot with other specified severity (principal)
CPT/HCPCS: 96365

== ENCOUNTER 2020-02-10 12:06 | Day surgery (SDC) | payer OTHER ==
[2020-02-10] MEDS ORDERED: ERTAPENEM SODIUM 1 GM in SODIUM CHLORIDE 50 ML IVPB ONE (13:00)
[2020-02-10] MEDS ORDERED: SODIUM CHLORIDE 50 ML IVPB ONE (13:12)
[2020-02-10] MEDS ORDERED: ERTAPENEM SODIUM 1 GM VIAL ONE (13:12)
[2020-02-10 13:19] VITALS: BP 151/72; PULSE 84; TEMP 98.4
== END 2020-02-10 15:29 | disposition home or self-care (01) ==
LOC: JINFUSION 12:06 → J7W 12:07 → JINFUSION 15:29
PROVIDERS: ATTEND Internal Medicine
DX: L97.518 Non-pressure chronic ulcer of other part of right foot with other specified severity (principal)
CPT/HCPCS: 96365

== ENCOUNTER 2020-02-11 11:24 | Day surgery (SDC) | payer OTHER ==
[2020-02-11] MEDS ORDERED: ERTAPENEM SODIUM 1 GM in SODIUM CHLORIDE 50 ML IVPB ONE (12:30)
[2020-02-11 13:11] VITALS: TEMP 98.7
[2020-02-11 13:38] VITALS: BP 144/81; PULSE 80
== END 2020-02-11 13:00 | disposition home or self-care (01) ==
LOC: JINFUSION 11:24 → J7W 11:26 → JINFUSION 13:00
PROVIDERS: ATTEND Internal Medicine
DX: L97.518 Non-pressure chronic ulcer of other part of right foot with other specified severity (principal)
CPT/HCPCS: 96365

== ENCOUNTER 2020-02-12 11:12 | Day surgery (SDC) | payer OTHER ==
[2020-02-12] MEDS ORDERED: ERTAPENEM SODIUM 1 GM VIAL ONE (12:13)
[2020-02-12] MEDS ORDERED: SODIUM CHLORIDE 50 ML IVPB ONE (12:13)
[2020-02-12] MEDS ORDERED: ERTAPENEM SODIUM 1 GM in SODIUM CHLORIDE 50 ML IVPB ONE (12:15)
[2020-02-12 12:29] VITALS: TEMP 98.6
[2020-02-12 13:04] VITALS: BP 155/75; PULSE 83
== END 2020-02-12 13:05 | disposition home or self-care (01) ==
LOC: J7W 11:12 → JINFUSION 11:12
PROVIDERS: ATTEND Internal Medicine
DX: L97.518 Non-pressure chronic ulcer of other part of right foot with other specified severity (principal)
CPT/HCPCS: 96365

== ENCOUNTER 2020-02-13 10:58 | Day surgery (SDC) | payer OTHER ==
[2020-02-13] MEDS ORDERED: ERTAPENEM SODIUM 1 GM in SODIUM CHLORIDE 50 ML IVPB ONE (11:30)
[2020-02-13] MEDS ORDERED: ERTAPENEM SODIUM 1 GM VIAL ONE (11:33)
[2020-02-13] MEDS ORDERED: SODIUM CHLORIDE 50 ML IVPB ONE (11:33)
[2020-02-13 11:56] LABS: HEMATOCRIT 29.6 % (35.4-49); HEMOGLOBIN 9.8 GM/dL (11.7-16.9); MCH 27.9 pg (25.7-33.7); MEAN CELL VOLUME 84.4 fl (80-96); MEAN PLT VOLUME 8.1 fl (7.5-11.1); PLATELET COUNT 288 K/MM3 (134-434); RBC 3.51 M/mm3 (4.00-5.60); RDW 16.5 % (11.9-15.9); WHITE BLOOD COUNT 8.9 K/mm3 (4.0-10.0)
[2020-02-13 12:28] LABS: ALBUMIN 2.9 g/dl (3.4-5.0); BILIRUBIN,TOTAL 0.6 mg/dL (0.2-1); BLOOD UREA NITROGEN 39.6 mg/dL (7-18); CALCIUM 8.8 mg/dL (8.5-10.1); POTASSIUM 4.9 mmol/L (3.5-5.1)
[2020-02-13 12:33] VITALS: BP 133/75; PULSE 67; TEMP 98
== END 2020-02-13 13:25 | disposition home or self-care (01) ==
LOC: JINFUSION 10:58 → J7W 10:58 → JINFUSION 13:25
PROVIDERS: ATTEND Internal Medicine
DX: E11.621 Type 2 diabetes mellitus with foot ulcer (principal); L97.518 Non-pressure chronic ulcer of other part of right foot with other specified severity; M86.9 Osteomyelitis, unspecified; Z79.4 Long term (current) use of insulin
CPT/HCPCS: 36415; 80053; 85027; 85651; 86140; 96365

== ENCOUNTER 2020-02-14 11:03 | Day surgery (SDC) | payer OTHER ==
[2020-02-14] MEDS ORDERED: ERTAPENEM SODIUM 1 GM in SODIUM CHLORIDE 50 ML IVPB ONE (11:30)
[2020-02-14] MEDS ORDERED: SODIUM CHLORIDE 50 ML IVPB ONE (11:32)
[2020-02-14] MEDS ORDERED: ERTAPENEM SODIUM 1 GM VIAL ONE (11:32)
[2020-02-14 12:26] VITALS: TEMP 98.7
[2020-02-14 12:27] VITALS: BP 139/70; PULSE 90
== END 2020-02-14 12:39 | disposition home or self-care (01) ==
LOC: J7W 11:03 → JINFUSION 11:03
PROVIDERS: ATTEND Internal Medicine
DX: E11.621 Type 2 diabetes mellitus with foot ulcer (principal); L97.518 Non-pressure chronic ulcer of other part of right foot with other specified severity; M86.9 Osteomyelitis, unspecified; Z79.4 Long term (current) use of insulin
CPT/HCPCS: 96365

== ENCOUNTER 2020-02-17 08:37 | Day surgery (SDC) | payer OTHER ==
[2020-02-17] MEDS ORDERED: ERTAPENEM SODIUM 1 GM in SODIUM CHLORIDE 50 ML IVPB ONE (12:15)
[2020-02-17 12:32] VITALS: TEMP 98.6
[2020-02-17 13:10] VITALS: BP 138/73; PULSE 87
== END 2020-02-17 13:21 | disposition home or self-care (01) ==
LOC: JINFUSION 08:37 → J7W 12:09 → JINFUSION 13:21
PROVIDERS: ATTEND Internal Medicine
DX: E11.621 Type 2 diabetes mellitus with foot ulcer (principal); L97.518 Non-pressure chronic ulcer of other part of right foot with other specified severity; M86.9 Osteomyelitis, unspecified; Z79.4 Long term (current) use of insulin
CPT/HCPCS: 96365

== ENCOUNTER 2020-02-18 11:00 | Day surgery (SDC) | payer OTHER ==
[2020-02-18] MEDS ORDERED: ERTAPENEM SODIUM 1 GM in SODIUM CHLORIDE 50 ML IVPB ONE (11:45)
[2020-02-18] MEDS ORDERED: SODIUM CHLORIDE 50 ML IVPB ONE (11:49)
[2020-02-18] MEDS ORDERED: ERTAPENEM SODIUM 1 GM VIAL ONE (11:49)
[2020-03-06 14:37] VITALS: BP 120/70; PULSE 72; TEMP 98.2
== END 2020-02-18 13:00 | disposition home or self-care (01) ==
LOC: JINFUSION 11:00 → J7W 11:19 → JINFUSION 13:00
PROVIDERS: ATTEND Internal Medicine
DX: E11.621 Type 2 diabetes mellitus with foot ulcer (principal); L97.518 Non-pressure chronic ulcer of other part of right foot with other specified severity; M86.9 Osteomyelitis, unspecified; Z79.4 Long term (current) use of insulin
CPT/HCPCS: 96365

== ENCOUNTER 2020-02-19 11:45 | Day surgery (SDC) | payer OTHER ==
[2020-02-19] MEDS ORDERED: SODIUM CHLORIDE 50 ML IVPB ONE (12:29)
[2020-02-19] MEDS ORDERED: ERTAPENEM SODIUM 1 GM VIAL ONE (12:29)
[2020-02-19] MEDS ORDERED: ERTAPENEM SODIUM 1 GM in SODIUM CHLORIDE 50 ML IVPB ONE (12:30)
[2020-02-19 12:57] VITALS: TEMP 97.9
[2020-02-19 18:10] VITALS: BP 128/75; PULSE 74
== END 2020-02-19 12:45 | disposition home or self-care (01) ==
LOC: JINFUSION 11:45 → J7W 11:45 → JINFUSION 12:45
PROVIDERS: ATTEND Internal Medicine
DX: E11.621 Type 2 diabetes mellitus with foot ulcer (principal); L97.518 Non-pressure chronic ulcer of other part of right foot with other specified severity; M86.9 Osteomyelitis, unspecified; Z79.4 Long term (current) use of insulin
CPT/HCPCS: 96365

== ENCOUNTER 2020-02-20 11:56 | Day surgery (SDC) | payer OTHER ==
[2020-02-20] MEDS ORDERED: ERTAPENEM SODIUM 1 GM in SODIUM CHLORIDE 50 ML IVPB ONE (12:15)
[2020-02-20 12:31] VITALS: TEMP 98.2
[2020-02-20] MEDS ORDERED: ERTAPENEM SODIUM 1 GM VIAL ONE (13:31)
[2020-02-20] MEDS ORDERED: SODIUM CHLORIDE 50 ML IVPB ONE (13:31)
[2020-02-20 14:01] LABS: BASO % 1.2 % (0-2.0); EOS % 1.7 % (0-4.5); HEMATOCRIT 34.9 % (35.4-49); HEMOGLOBIN 11.5 GM/dL (11.7-16.9); MCH 28.2 pg (25.7-33.7); MCHC 33.1 g/dl (32.0-35.9); MEAN CELL VOLUME 85.4 fl (80-96); MEAN PLT VOLUME 8.8 fl (7.5-11.1); MONO % 8.8 % (3.8-10.2); NEUT % 77.3 % (42.8-82.8); PLATELET COUNT 250 K/MM3 (134-434); RBC 4.08 M/mm3 (4.00-5.60); RDW 16.3 % (11.9-15.9); WHITE BLOOD COUNT 9.1 K/mm3 (4.0-10.0)
[2020-02-20 14:30] VITALS: BP 141/71; PULSE 79
[2020-02-20 14:35] LABS: ALBUMIN 3.1 g/dl (3.4-5.0); BILIRUBIN,TOTAL 0.2 mg/dL (0.2-1); BLOOD UREA NITROGEN 46.8 mg/dL (7-18); CREATININE 2.1 mg/dL (0.55-1.3); POTASSIUM 4.4 mmol/L (3.5-5.1); TOT PROT 8.4 g/dl (6.4-8.2)
[2020-02-20 14:36] LABS: ERYTHROCYTE SEDIMENTATION RATE 97 mm/hr (0-20)
== END 2020-02-20 14:25 | disposition home or self-care (01) ==
LOC: JINFUSION 11:56 → J7W 11:58 → JINFUSION 14:25
PROVIDERS: ATTEND Internal Medicine
DX: E11.621 Type 2 diabetes mellitus with foot ulcer (principal); L97.518 Non-pressure chronic ulcer of other part of right foot with other specified severity; M86.9 Osteomyelitis, unspecified; Z79.4 Long term (current) use of insulin
CPT/HCPCS: 36415; 80053; 85025; 85651; 86140; 96365

== ENCOUNTER 2020-02-21 08:11 | Day surgery (SDC) | payer OTHER ==
[2020-02-21] MEDS ORDERED: ERTAPENEM SODIUM 1 GM in SODIUM CHLORIDE 50 ML IVPB ONE (11:15)
[2020-02-21] MEDS ORDERED: SODIUM CHLORIDE 50 ML IVPB ONE (11:50)
[2020-02-21] MEDS ORDERED: ERTAPENEM SODIUM 1 GM VIAL ONE (11:50)
[2020-02-21 12:13] VITALS: BP 140/70; PULSE 94; TEMP 98.7
== END 2020-02-21 15:06 | disposition home or self-care (01) ==
LOC: JINFUSION 08:11 → J7W 08:13 → JINFUSION 15:06
PROVIDERS: ATTEND Internal Medicine
DX: E11.621 Type 2 diabetes mellitus with foot ulcer (principal); L97.518 Non-pressure chronic ulcer of other part of right foot with other specified severity; M86.9 Osteomyelitis, unspecified; Z79.4 Long term (current) use of insulin
CPT/HCPCS: 96365

== ENCOUNTER 2020-02-22 11:37 | Day surgery (SDC) | payer OTHER ==
[2020-02-22] MEDS ORDERED: ERTAPENEM SODIUM 1 GM VIAL ONE (11:58)
[2020-02-22] MEDS ORDERED: SODIUM CHLORIDE 50 ML IVPB ONE (11:59)
[2020-02-22] MEDS ORDERED: ERTAPENEM SODIUM 1 GM in SODIUM CHLORIDE 50 ML IVPB ONE (12:00)
[2020-02-22 12:56] VITALS: PULSE 91; TEMP 98.5
[2020-02-22 13:17] VITALS: BP 148/79
== END 2020-02-22 17:44 | disposition home or self-care (01) ==
LOC: JINFUSION 11:37 → J7W 11:38 → JINFUSION 17:44
PROVIDERS: ATTEND Internal Medicine
DX: E11.621 Type 2 diabetes mellitus with foot ulcer (principal); L97.518 Non-pressure chronic ulcer of other part of right foot with other specified severity; M86.9 Osteomyelitis, unspecified; Z79.4 Long term (current) use of insulin
CPT/HCPCS: 96365

== ENCOUNTER 2020-02-23 12:48 | Day surgery (SDC) | payer OTHER ==
[2020-02-23 13:00] VITALS: PULSE 84; TEMP 98.2
[2020-02-23] MEDS ORDERED: ERTAPENEM SODIUM 1 GM VIAL ONE (13:27)
[2020-02-23] MEDS ORDERED: DEXTROSE 5%-WATER - 50 ML IVPB ONE (13:27)
[2020-02-23] MEDS ORDERED: ERTAPENEM SODIUM 1 GM in DEXTROSE 5%-WATER - 50 ML IVPB ONE (13:30)
[2020-02-23 14:20] VITALS: BP 143/77
== END 2020-02-23 14:36 | disposition home or self-care (01) ==
LOC: JINFUSION 12:48 → J7W 12:50 → JINFUSION 14:36
PROVIDERS: ATTEND Internal Medicine
DX: E11.621 Type 2 diabetes mellitus with foot ulcer (principal); L97.518 Non-pressure chronic ulcer of other part of right foot with other specified severity; M86.9 Osteomyelitis, unspecified; Z79.4 Long term (current) use of insulin
CPT/HCPCS: 96365

== ENCOUNTER 2020-02-24 10:52 | Day surgery (SDC) | payer OTHER ==
[2020-02-24] MEDS ORDERED: ERTAPENEM SODIUM 1 GM VIAL ONE (11:22)
[2020-02-24] MEDS ORDERED: SODIUM CHLORIDE 50 ML IVPB ONE (11:23)
[2020-02-24] MEDS ORDERED: ERTAPENEM SODIUM 1 GM in SODIUM CHLORIDE 50 ML IVPB ONE (11:30)
[2020-02-24 12:04] VITALS: BP 132/76; PULSE 74; TEMP 98.5
== END 2020-02-24 12:05 | disposition home or self-care (01) ==
LOC: JINFUSION 10:52 → J7W 10:52 → JINFUSION 12:05
PROVIDERS: ATTEND Internal Medicine
DX: E11.621 Type 2 diabetes mellitus with foot ulcer (principal); L97.518 Non-pressure chronic ulcer of other part of right foot with other specified severity; M86.9 Osteomyelitis, unspecified; Z79.4 Long term (current) use of insulin
CPT/HCPCS: 96365

== ENCOUNTER 2020-02-25 10:44 | Day surgery (SDC) | payer OTHER ==
[2020-02-25 11:05] VITALS: PULSE 96; TEMP 98.6
[2020-02-25] MEDS ORDERED: ERTAPENEM SODIUM 1 GM in SODIUM CHLORIDE 50 ML IVPB ONE (11:15)
[2020-02-25 12:56] VITALS: BP 112/68
== END 2020-02-25 13:34 | disposition home or self-care (01) ==
LOC: J7W 10:44 → JINFUSION 10:44
PROVIDERS: ATTEND Internal Medicine
DX: E11.621 Type 2 diabetes mellitus with foot ulcer (principal); L97.518 Non-pressure chronic ulcer of other part of right foot with other specified severity; M86.9 Osteomyelitis, unspecified; Z79.4 Long term (current) use of insulin
CPT/HCPCS: 96365

== ENCOUNTER 2020-02-26 11:16 | Day surgery (SDC) | payer OTHER ==
[2020-02-26] MEDS ORDERED: ERTAPENEM SODIUM 1 GM VIAL ONE (11:44)
[2020-02-26] MEDS ORDERED: SODIUM CHLORIDE 50 ML IVPB ONE (11:44)
[2020-02-26] MEDS ORDERED: ERTAPENEM SODIUM 1 GM in SODIUM CHLORIDE 50 ML IVPB ONE (11:45)
[2020-02-26 11:59] VITALS: TEMP 98.3
[2020-02-26 12:51] VITALS: BP 136/71; PULSE 72
== END 2020-02-26 12:40 | disposition home or self-care (01) ==
LOC: JINFUSION 11:16 → J7W 11:50 → JINFUSION 12:40
PROVIDERS: ATTEND Internal Medicine
DX: E11.621 Type 2 diabetes mellitus with foot ulcer (principal); L97.518 Non-pressure chronic ulcer of other part of right foot with other specified severity; M86.9 Osteomyelitis, unspecified; Z79.4 Long term (current) use of insulin
CPT/HCPCS: 96365

== ENCOUNTER 2020-02-27 11:14 | Day surgery (SDC) | payer OTHER ==
[2020-02-27] MEDS ORDERED: ERTAPENEM SODIUM 1 GM in SODIUM CHLORIDE 50 ML IVPB ONE (11:30)
[2020-02-27] MEDS ORDERED: ERTAPENEM SODIUM 1 GM VIAL ONE (12:24)
[2020-02-27] MEDS ORDERED: SODIUM CHLORIDE 50 ML IVPB ONE (12:24)
[2020-02-27 12:26] LABS: HEMATOCRIT 33.8 % (35.4-49); HEMOGLOBIN 11.3 GM/dL (11.7-16.9); MCH 28.2 pg (25.7-33.7); MCHC 33.5 g/dl (32.0-35.9); MEAN CELL VOLUME 84.2 fl (80-96); MEAN PLT VOLUME 9.4 fl (7.5-11.1); PLATELET COUNT 231 K/MM3 (134-434); RBC 4.02 M/mm3 (4.00-5.60); RDW 16.7 % (11.9-15.9); WHITE BLOOD COUNT 8.3 K/mm3 (4.0-10.0)
[2020-02-27 12:54] LABS: BILIRUBIN,TOTAL 0.2 mg/dL (0.2-1); BLOOD UREA NITROGEN 45.2 mg/dL (7-18); CALCIUM 9.1 mg/dL (8.5-10.1); CREATININE 1.8 mg/dL (0.55-1.3); POTASSIUM 4.9 mmol/L (3.5-5.1); TOT PROT 8.1 g/dl (6.4-8.2)
[2020-02-27 13:48] VITALS: BP 125/87; PULSE 90; TEMP 98
[2020-02-27 14:39] LABS: ERYTHROCYTE SEDIMENTATION RATE 95 mm/hr (0-20)
== END 2020-02-27 13:49 | disposition home or self-care (01) ==
LOC: JINFUSION 11:14 → J7W 11:15 → JINFUSION 13:49
PROVIDERS: ATTEND Internal Medicine
DX: E11.621 Type 2 diabetes mellitus with foot ulcer (principal); L97.518 Non-pressure chronic ulcer of other part of right foot with other specified severity; M86.9 Osteomyelitis, unspecified; Z79.4 Long term (current) use of insulin
CPT/HCPCS: 36415; 80053; 85027; 85651; 86140; 96365

== ENCOUNTER 2020-03-02 15:15 | Inpatient (IN) | payer OTHER ==
--- NOTE | 2020-03-02 16:06 | PDOC ---
History of Present Illness - General Chief Complaint: Wound Stated Complaint: WOUND Time Seen by Provider: 03/02/20 15:46 History Source: Patient Exam Limitations: No Limitations - History of Present Illness Initial Comments: 03/02/20 15:50 HPI: 70 yo M PMH of DM, HTN, HLD, CAD, CABG, admitted 01/30 to 02/05 for IV ABX due to non-healing toe ulcer presents with a left hallux ulcer persistent despite antibiotics sent in by Dr. Ocampo for left hallux amputation. Pt states that the ulcer has been ongoing for the last year, has been unchanged for the past month while he has received IV abx via PICC in right arm. No increasing drainage, no site pain. Prior admission was given vanc/zosyn. He has normal sensation, moment, and is able to ambulate with a boot. He denies fevers, chills, chest pain, sob, nausea, vomiting, headaches, abdominal pain. Seen in clinic today, notable for worsening appearance despite prolonged antibiotic course. Past History - Travel History Traveled outside of the country in the last 30 days: No Close contact w/someone who was outside of country & ill: No - Medical History Allergies/Adverse Reactions: Allergies Allergy/AdvReac Type Severity Reaction Status Date / Time No Known Allergies Allergy Verified 03/02/20 15:24 Home Medications: Ambulatory Orders Amlodipine Besylate [Norvasc -] 10 mg PO DAILY tablet 12/29/17 Clopidogrel Bisulfate [Plavix] 75 mg PO DAILY 01/31/20 Insulin Glargine,Hum.rec.anlog [Lantus] 20 unit SQ HS 01/31/20 Metoprolol Tartrate 50 mg PO BID 01/31/20 Potassium Chloride 10 meq PO DAILY 01/31/20 Ertapenem Sodium [Invanz -] 1 gm IVPB DAILY #37 vial 02/06/20 Insulin Lispro [Humalog Kwikpen U-100] See Protocol SQ TID #1 each 02/06/20 Lisinopril [Prinivil] 5 mg PO DAILY #30 tablet 02/06/20 Anemia: No Asthma: No Cancer: No Cardiac Disorders: Yes (CAD, CABG) CVA: No COPD: No CHF: No Dementia: No Diabetes: Yes (neuropathy) GI Disorders: Yes (GERD) Disorders: Yes (Renal insuffiency) HTN: Yes Hypercholesterolemia: Yes Liver Disease: No Seizures: No Thyroid Disease: No - Surgical History Abdominal Surgery: No Appendectomy: No Cardiac Surgery: Yes (STENTS, BYPASS) Cholecystectomy: No Lung Surgery: No Neurologic Surgery: No Orthopedic Surgery: No - Immunization History Immunization Up to Date: Yes - Psycho-Social/Smoking History Smoking History: Never smoked Have you smoked in the past 12 months: No If you are a former smoker, when did you quit?: 1979 Review of Systems - Review of Systems Able to Perform ROS?: Yes Is the patient limited [place] proficient: Yes Constitutional: No: Chills, Fever, Weakness HEENTM: No: Recent change in vision, Nose Pain, Throat Pain Respiratory: No: Cough, Shortness of Breath, SOB with Exertion, SOB at Rest, Wheezing Cardiac (ROS): No: Chest Pain, Edema, Irregular Heart Rate, Lightheadedness, Palpitations, Syncope, Chest Tightness ABD/GI: No: Constipated, Diarrhea, Nausea, Poor Appetite, Poor Fluid Intake, Vomiting : No: Burning, Dysuria, Frequency Musculoskeletal: No: Back Pain, Muscle Pain, Muscle Weakness Integumentary: No: Pruritus, Rash Neurological: No: Headache, Numbness, Tingling, Weakness, Unsteady Gait, Ataxia Psychiatric: No: Stressors, Change in Appetite Endocrine: No: Increased Thirst, Increased Urine, Change in Weight Hematologic/Lymphatic: No: Anemia, Blood Clots, Easy Bleeding All Other Systems: Reviewed and Negative *Physical Exam - Vital Signs Last Vital Signs Temp Pulse Resp BP Pulse Ox 98.3 F 116 H 18 157/84 97 03/02/20 15:18 03/02/20 15:18 03/02/20 15:18 03/02/20 15:18 03/02/20 15:18 - Physical Exam 03/02/20 16:11 Vitals reviewed, AF, tachycardia to 116 GEN: Well appearing, appears stated age, NAD, comfortable. AAOx3. HEENT: NCAT, EOMI, PERRL. Sclera anicteric, non-injected. No facial asymmetry. Moist mucous membranes. Normal voice. Trachea midline. CV: RRR, S1/S2, no murmurs / rubs / gallops appreciated. LUNG: CTABL, normal work of breathing. No wheezes, rales, rhonchi. No cough. Speaking full sentences. GI: Soft, NTND, +BS, no guarding, no rebound. No masses. EXTREMITIES: 2+ distal pulses. No clubbing / cyanosis / edema. No gross deformity in any extremity. Left hallux with ulcer on anterior / inferior portion draining sanguineous fluid through to the sub-Q fat layer, not warm, no erythema, no purulent drainage, no crepitus, no erythematous streaking, non- tender, normal ROM, reporting normal sensation. SKIN: Warm, dry, no rashes appreciated, non-jaundiced. Toe as above. PSYCH: Normal mood and affect. Cooperative and appropriate. NEURO: CN grossly intact. Moving all extremities well. Normal strength and sensation grossly. ED Treatment Course - LABORATORY CBC & Chemistry Diagram: 03/02/20 16:40 03/02/20 16:40 Medical Decision Making - Medical Decision Making 03/02/20 16:14 70 yo M PMH of DM, HTN, HLD, CAD, CABG, admitted 01/30 to 02/05 for IV ABX due to non-healing toe ulcer presents with a left hallux ulcer persistent despite antibiotics sent in by Dr. Ocampo for left hallux amputation. History notable for failure of prolonged antibiotic course (via PICC). Exam notable for deep ulceration without associated cellulitis but exposed adipose, tachycardia, otherwise comfortable with a normal exam. DDX: Diabetic foot ulcer, osteo, worsening infection - encounter for amputation per podiatry. - Labs - infectious and preop - EKG, CXR, plain films Dispo: Admit Requesting inpatient evaluation by: Dr. Kirill Ocampo 03/02/20 18:38 Labs notable for elevated inflammatory markers, mild leukocytosis Plain films unremarkable on my review, pending official Dispo: Admit Discharge - Discharge Information Problems reviewed: Yes Clinical Impression/Diagnosis: Diabetic foot ulcer Qualifiers: Diabetic foot ulcer location: toe Diabetes mellitus type: type 2 Laterality: left Non-pressure ulcer stage: with fat layer exposed Qualified Code(s): E11.621 - Type 2 diabetes mellitus with foot ulcer Condition: Guarded - Admission Yes - Follow up/Referral - Patient Discharge Instructions - Post Discharge Activity
[2020-03-02] MEDS ORDERED: SODIUM CHLORIDE 0.9% 500 ML INFUS.BAG IV ONE (16:09)
[2020-03-02 17:08] LABS: BASO % 0.7 % (0-2.0); EOS % 1.5 % (0-4.5); HEMATOCRIT 33.7 % (35.4-49); HEMOGLOBIN 11.7 GM/dL (11.7-16.9); LYMPH % 9.3 % (8-40); MCH 28.9 pg (25.7-33.7); MCHC 34.6 g/dl (32.0-35.9); MEAN CELL VOLUME 83.7 fl (80-96); MEAN PLT VOLUME 9.5 fl (7.5-11.1); MONO % 7.3 % (3.8-10.2); NEUT % 81.2 % (42.8-82.8); PLATELET COUNT 254 K/MM3 (134-434); RBC 4.03 M/mm3 (4.00-5.60); RDW 16.5 % (11.9-15.9); WHITE BLOOD COUNT 10.9 K/mm3 (4.0-10.0)
--- NOTE | 2020-03-02 17:09 | PDOC ---
Documentation entered by Dandre Huston SCRIBE, acting as scribe for Cornelio Jett MD. Cornelio Jett MD: This documentation has been prepared by the Betzaida high Xhesika, SCRIBE, under my direction and personally reviewed by me in its entirety. I confirm that the documentation accurately reflects all work, treatment, procedures, and medical decision making performed by me. Attending Attestation - Resident Resident Name: Michael Sheikh - ED Attending Attestation I have performed the following: I have examined & evaluated the patient, The case was reviewed & discussed with the resident, I agree w/resident's findings & plan, Exceptions are as noted - HPI HPI: 03/02/20 15:59 The patient is a 69y/o M with a pmh of CAD, DM, HTN, HL, chronic L foot wound (managed by dr. ocampo) recently admitted 01/30 to 02/05 for IV ABX due to non- healing toe ulcer who presents to the ED for chronic (1 year) L foot ulcer. Pt was sent in by Dr. Ocampo for left hallux amputation. Pt states he has been receiving IV abx for the past month with no improvement of symptoms. Pt denies any drainage or pain. Denies fevers, chills, nausea, vomiting, diarrhea. Denies Chest pain, SOB, headaches, abdominal pain. Allergies: NKDA - Physicial Exam PE: 03/02/20 17:09 See resident exam - Medical Decision Making 03/02/20 17:09 70 M here for management of chronic non-healing toe wound. - labs - Admit Discharge - Discharge Information Problems reviewed: Yes Clinical Impression/Diagnosis: Diabetic foot ulcer Qualifiers: Diabetic foot ulcer location: toe Diabetes mellitus type: type 2 Laterality: left Non-pressure ulcer stage: with fat layer exposed Qualified Code(s): E11.621 - Type 2 diabetes mellitus with foot ulcer Condition: Stable Disposition: HOME - Follow up/Referral - Patient Discharge Instructions - Post Discharge Activity
[2020-03-02 17:17] LABS: INR 0.97 (0.83-1.09); PROTHROMBIN TIME (PATIENT) 11.4 SEC (9.7-13.0)
[2020-03-02 17:20] LABS: ACTIVATED PTT 31.3 SECONDS (25.2-36.5)
[2020-03-02 17:39] LABS: ALBUMIN 3.4 g/dl (3.4-5.0); BILIRUBIN,TOTAL 0.4 mg/dL (0.2-1); CALCIUM 8.8 mg/dL (8.5-10.1); POTASSIUM 5.1 mmol/L (3.5-5.1)
[2020-03-02 17:40] LABS: TOT PROT 8.8 g/dl (6.4-8.2)
[2020-03-02 18:03] LABS: ERYTHROCYTE SEDIMENTATION RATE 104 mm/hr (0-20)
[2020-03-02] MEDS ORDERED: VANCOMYCIN 1 GM in D5W (PRE-DOCKED) 1,000 MG/250 ML IVPB ONE (19:52)
[2020-03-02] MEDS ORDERED: PIPERACILLIN/TAZOB 3.375 GM 3.375 GM in DEXTROSE 5%-WATER - 50 ML IVPB ONE (19:53)
[2020-03-02] MEDS ORDERED: PIPERACILLIN/TAZOB 3.375 GM 3.375 GM/50 ML BAG IVPB ONE (20:24)
[2020-03-02] MEDS ORDERED: VANCOMYCIN 1 GRAM (PRE-DOCKED) 1,000 MG/250 ML BAG IVPB ONE (20:50)
--- NOTE | 2020-03-02 22:13 | HP ---
Admitting History and Physical - Primary Care Physician PCP: Brannon Gutierrez - Admission Chief Complaint: Diabetic Foot Wound History of Present Illness: This is a 70 y/o male with a PMHx of DM, Diabetic Foot Ulcers, HTN, HLD, CAD s/p CABG, last admission 01/30-02/05 for Diabetic Foot Ulcer- non-healing. Who presents to the ED sent in by Dr Ocampo for admission for left hallux amputation. Patient is Botswanan speaking shakila line used name- Jayde, #[id number]. Patient reports being sent down to the ED from the wound center by his cinder man for admission and amputation of his left great toe. Patient reports receiving antibiotics over several weeks for his left great toe. He reports having some yellow drainage from the toe. He denies fever, chills, or pain. Patient denies SOB, dizziness, HAWK, CP, palpitations, AP, N/V/D, constipation, dysuria. Patient denies sick contacts or recent travel. 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: Yes: Migraine Cardiovascular: Yes: CAD, HTN, Hyperlipdemia, [place] Gastrointestinal: Yes: GERD Renal/: Yes: Renal Inusuff Endocrine: Yes: Diabetes Mellitus - Past Surgical History Past Surgical History: Yes: CABG, Stent - Smoking History Smoking history: Former smoker Have you smoked in the past 12 months: No If you are a former smoker, when did you quit?: 1979 - Alcohol/Substance Use Hx Alcohol Use: No History of Substance Use: reports: None - Social History Usual Living Arrangement: Yes: Alone Do you think of yourself as: Declined to answer ADL: Independent 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 History of Recent Travel: No Home Medications - Allergies Allergies/Adverse Reactions: Allergies Allergy/AdvReac Type Severity Reaction Status Date / Time No Known Allergies Allergy Verified 03/02/20 15:24 - Home Medications Home Medications: Ambulatory Orders Amlodipine Besylate [Norvasc -] 10 mg PO DAILY tablet 12/29/17 Clopidogrel Bisulfate [Plavix] 75 mg PO DAILY 01/31/20 Insulin Glargine,Hum.rec.anlog [Lantus] 20 unit SQ HS 01/31/20 Metoprolol Tartrate 50 mg PO BID 01/31/20 Potassium Chloride 10 meq PO DAILY 01/31/20 Ertapenem Sodium [Invanz -] 1 gm IVPB DAILY #37 vial 02/06/20 Insulin Lispro [Humalog Kwikpen U-100] See Protocol SQ TID #1 each 02/06/20 Lisinopril [Prinivil] 5 mg PO DAILY #30 tablet 02/06/20 Family Medical History Family History: As Documented Family Hx Diabetes: Sister Review of Systems - Review of Systems Constitutional: reports: No Symptoms Eyes: reports: No Symptoms HENT: reports: No Symptoms Neck: reports: No Symptoms Cardiovascular: reports: No Symptoms Respiratory: reports: No Symptoms Gastrointestinal: reports: No Symptoms Genitourinary: reports: No Symptoms Breasts: reports: No Symptoms Reported Musculoskeletal: reports: No Symptoms Integumentary: reports: Wound (left great toe) Neurological: reports: No Symptoms Endocrine: reports: No Symptoms Hematology/Lymphatic: reports: No Symptoms Psychiatric: reports: No Symptoms Pain Intensity: 0 Physical Examination Vital Signs: Vital Signs Temperature 97.9 F 03/02/20 19:48 Pulse Rate 96 H 03/02/20 19:48 Respiratory Rate 18 03/02/20 18:10 Blood Pressure 157/79 03/02/20 19:48 O2 Sat by Pulse Oximetry (%) 97 03/02/20 19:48 Constitutional: Yes: No Distress, Calm, Thin Eyes: Yes: WNL, Conjunctiva Clear, EOM Intact, PERRL HENT: Yes: WNL, Atraumatic, Normocephalic Neck: Yes: WNL, Supple, Trachea Midline Cardiovascular: Yes: Regular Rate and Rhythm, S1, S2 Respiratory: Yes: WNL, Regular, CTA Bilaterally Gastrointestinal: Yes: Normal Bowel Sounds, Soft ...Rectal Exam: Yes: Deferred Renal/: Yes: WNL Breast(s): Yes: WNL Musculoskeletal: Yes: WNL Extremities: Yes: WNL Edema: No Peripheral Pulses WNL: Yes Integumentary: Yes: Pressure Ulcer (left great toe ventral aspect x2) Wound/Incision: Yes: Other (bandaid) Neurological: Yes: WNL, Alert, Oriented, Cran Nerves II-XII Intact ...Motor Strength: WNL Psychiatric: Yes: WNL, Alert, Oriented Labs: CBC, BMP 03/02/20 16:40 03/02/20 16:40 Intake & Output 02/28/20 02/29/20 03/01/20 03/02/20 23:59 23:59 23:59 23:59 Weight 61.235 kg Laboratory Results - last 24 hr 03/02/20 03/02/20 03/02/20 16:40 16:40 16:40 WBC 10.9 H RBC 4.03 Hgb 11.7 Hct 33.7 L MCV 83.7 MCH 28.9 MCHC 34.6 RDW 16.5 H Plt Count 254 MPV 9.5 Absolute Neuts (auto) 8.8 H Neutrophils % 81.2 Lymphocytes % 9.3 Monocytes % 7.3 Eosinophils % 1.5 Basophils % 0.7 Nucleated RBC % 0 ESR 104 H PT with INR 11.40 INR 0.97 PTT (Actin FS) 31.3 Sodium 132 L Potassium 5.1 Chloride 100 Carbon Dioxide 25 Anion Gap 8 BUN 40.0 H Creatinine 2.0 H Est GFR (CKD-EPI)AfAm 38.33 Est GFR (CKD-EPI)NonAf 33.07 Random Glucose 279 H Calcium 8.8 Total Bilirubin 0.4 AST 25 ALT 37 Alkaline Phosphatase 127 H C-Reactive Protein 1.2 H Total Protein 8.8 H Albumin 3.4 Blood Type Antibody Screen 03/02/20 16:40 WBC RBC Hgb Hct MCV MCH MCHC RDW Plt Count MPV Absolute Neuts (auto) Neutrophils % Lymphocytes % Monocytes % Eosinophils % Basophils % Nucleated RBC % ESR PT with INR INR PTT (Actin FS) Sodium Potassium Chloride Carbon Dioxide Anion Gap BUN Creatinine Est GFR (CKD-EPI)AfAm Est GFR (CKD-EPI)NonAf Random Glucose Calcium Total Bilirubin AST ALT Alkaline Phosphatase C-Reactive Protein Total Protein Albumin Blood Type A POSITIVE Antibody Screen Negative Imaging - Results X-ray: Image Reviewed EKG: Image Reviewed Problem List - Problems (1) Diabetic foot ulcer Assessment/Plan: Secondary to Failed Outpatient Therapy Likely Osteomyelitis Likely Amputation- left great toe Left Foot Xray/Toes images reviewed Blood Cultures-pending Vancomycin, Zosyn initiated in ED, will continue renal dosing Appreciate ID consult Appreciate Vascular consult Monitor CBC, CMP Monitor vitals Neurovascular checks Code(s): E11.621 - TYPE 2 DIABETES MELLITUS WITH FOOT ULCER; L97.509 - NON- PRESSURE CHRONIC ULCER OTH PRT UNSP FOOT W UNSP SEVERITY Qualifiers: Diabetic foot ulcer location: toe Diabetes mellitus type: type 2 Laterality: left Non-pressure ulcer stage: with fat layer exposed Qualified Code(s): E11.621 - Type 2 diabetes mellitus with foot ulcer; L97.522 - Non- pressure chronic ulcer of other part of left foot with fat layer exposed (2) Acute kidney injury superimposed on CKD Assessment/Plan: Cr 2.0 at baseline (1.3- 3.0) Gentle IVF Monitor renal function Consider Nephrology consult Avoid Nephrotoxic drugs Code(s): N17.9 - ACUTE KIDNEY FAILURE, UNSPECIFIED; N18.9 - CHRONIC KIDNEY DISEASE, UNSPECIFIED (3) Diabetes Assessment/Plan: sub optimal BGMs ISS when diet resumed Monitor CMP Code(s): E11.9 - TYPE 2 DIABETES MELLITUS WITHOUT COMPLICATIONS (4) HTN (hypertension) Assessment/Plan: stable Monitor BP Continue home meds with parameters Monitor renal function Code(s): I10 - ESSENTIAL (PRIMARY) HYPERTENSION (5) Afib Assessment/Plan: [id number] 3 EKG reviewed Continue home meds with parameters Monitor vitals Code(s): I48.91 - UNSPECIFIED ATRIAL FIBRILLATION (6) CAD (coronary artery disease) Assessment/Plan: stable Continue home meds EKG reviewed Code(s): I25.10 - ATHSCL HEART DISEASE OF [place] CORONARY ARTERY W/O ANG PCTRS (7) BPH (benign prostatic hypertrophy) Assessment/Plan: Continue to monitor No med listed, will need to verify with pt's home pharmacy in am Monitor renal function Code(s): N40.0 - BENIGN PROSTATIC HYPERPLASIA WITHOUT LOWER URINRY TRACT SYMP (8) Encounter for screening laboratory testing for COVID-19 virus Assessment/Plan: Low Risk COVID PCR-pending Isolation Precautions Code(s): Z11.59 - ENCOUNTER FOR SCREENING FOR OTHER VIRAL DISEASES Assessment/Plan This is a 70 y/o male with a PMHx of DM, Diabetic Foot Ulcers, HTN, HLD, CAD s/p CABG, last admission 01/30-02/05 for Diabetic Foot Ulcer-non healing. Admitted to [facility] for Diabetic Foot Wound for further evaluation of there emergent condition. Plan: See Problem List FEN D50.45NS@42ml/hr Replete lytes prn NPO DVT ppx OOB SCDs Heparin SQ Dispo: Requires Inpatient Care Visit type - Medication Review Med list reviewed for High Risk Meds patients 65 and older: No (patient unable to verify home meds) - Emergency Visit Emergency Visit: Yes ED Registration Date: 03/02/20 Care time: The patient presented to the Emergency Department on the above date and was hospitalized for further evaluation of their emergent condition. - New Patient This patient is new to me today: Yes Date on this admission: 03/02/20 - Critical Care Critical Care patient: No
[2020-03-03] MEDS: DEXTROSE 5%-0.45% SALINE 1,000 ML IV SCH (00:47)
[2020-03-03] MEDS ORDERED: PIPERACILLIN/TAZOBACTAM 2.25 GM VIAL IVPB ONE ×4 (02:13→21:24)
[2020-03-03] MEDS ORDERED: DEXTROSE 5%-WATER - 50 ML IVPB ONE ×3 (02:14→21:25)
[2020-03-03] MEDS: PIPERACILLIN/TAZOB 2.25 GM 2.25 GM in DEXTROSE 5%-WATER - 50 ML IVPB SCH ×4 (02:29→22:19)
[2020-03-03 04:58] VITALS: BMI 24.7
[2020-03-03 09:37] LABS: BASO % 0.7 % (0-2.0); EOS % 2.5 % (0-4.5); HEMATOCRIT 31.8 % (35.4-49); HEMOGLOBIN 10.7 GM/dL (11.7-16.9); LYMPH % 7.7 % (8-40); MCH 28.3 pg (25.7-33.7); MCHC 33.8 g/dl (32.0-35.9); MEAN CELL VOLUME 83.8 fl (80-96); MEAN PLT VOLUME 9.1 fl (7.5-11.1); MONO % 8.9 % (3.8-10.2); NEUT % 80.2 % (42.8-82.8); PLATELET COUNT 190 K/MM3 (134-434); RBC 3.79 M/mm3 (4.00-5.60); RDW 16.2 % (11.9-15.9); WHITE BLOOD COUNT 7.4 K/mm3 (4.0-10.0)
[2020-03-03] MEDS ORDERED: HEPARIN NA (PORCINE) 5,000 UNITS/ML 1ML VIAL SQ SCH (10:00)
[2020-03-03 10:10] LABS: POTASSIUM 4.7 mmol/L (3.5-5.1)
--- NOTE | 2020-03-03 10:18 | EKG ---
Test Reason : Blood Pressure : / mmHG Vent. Rate : 096 BPM Atrial Rate : 096 BPM P-R Int : 164 ms QRS Dur : 086 ms QT Int : 360 ms P-R-T Axes : 043 005 087 degrees QTc Int : 454 ms NORMAL SINUS RHYTHM POSSIBLE INFERIOR INFARCT , AGE UNDETERMINED NONSPECIFIC ST ABNORMALITY ABNORMAL ECG WHEN COMPARED WITH ECG OF 31-JAN-2020 18:25, NO SIGNIFICANT CHANGE WAS FOUND Confirmed by GIO CHAUDHRY MD ([id number]) on 03/03/2020 10:17:45 AM Referred By: Confirmed By:GIO CHAUDHRY MD
[2020-03-03 10:27] LABS: BILIRUBIN,TOTAL 0.3 mg/dL (0.2-1); BLOOD UREA NITROGEN 29.1 mg/dL (7-18); CALCIUM 8.7 mg/dL (8.5-10.1); CREATININE 1.5 mg/dL (0.55-1.3); TOT PROT 7.3 g/dl (6.4-8.2)
[2020-03-03] MEDS: amLODIPine BESYLATE 10 MG TABLET (FP) PO SCH (11:06)
[2020-03-03] MEDS: CLOPIDOGREL BISULFATE 75 MG TABLET (FP) PO SCH (11:06)
[2020-03-03] MEDS: METOPROLOL TARTRATE 50 MG TABLET (FP) PO SCH ×2 (11:07→21:29)
[2020-03-03] MEDS: LISINOPRIL 5 MG TABLET (FP) PO SCH (11:07)
--- NOTE | 2020-03-03 11:35 | CONSULT ---
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 Cardio/Vascular: Yes: CAD, HTN, Hyperlipdemia, [place] Gastrointestinal: Yes: GERD Renal/: Yes: Renal Inusuff Endocrine: Yes: Diabetes Mellitus - Past Surgical History Past Surgical History: Yes: CABG, Stent - Alcohol/Substance Use Hx Alcohol Use: No History of Substance Use: reports: None - Smoking History Smoking history: Former smoker Have you smoked in the past 12 months: No If you are a former smoker, when did you quit?: 1979 - Social History Usual Living Arrangement: Alone ADL: Independent 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 History of Recent Travel: No Home Medications - Allergies Allergies/Adverse Reactions: Allergies Allergy/AdvReac Type Severity Reaction Status Date / Time No Known Allergies Allergy Verified 03/02/20 15:24 - Home Medications Home Medications: Ambulatory Orders Amlodipine Besylate [Norvasc -] 10 mg PO DAILY tablet 12/29/17 Clopidogrel Bisulfate [Plavix] 75 mg PO DAILY 01/31/20 Insulin Glargine,Hum.rec.anlog [Lantus] 20 unit SQ HS 01/31/20 Metoprolol Tartrate 50 mg PO BID 01/31/20 Potassium Chloride 10 meq PO DAILY 01/31/20 Ertapenem Sodium [Invanz -] 1 gm IVPB DAILY #37 vial 02/06/20 Insulin Lispro [Humalog Kwikpen U-100] See Protocol SQ TID #1 each 02/06/20 Lisinopril [Prinivil] 5 mg PO DAILY #30 tablet 02/06/20 Family Medical History Family Hx Diabetes: Sister Physical Exam Vital Signs: Vital Signs Temperature 98.1 F 03/03/20 06:00 Pulse Rate 88 03/03/20 06:00 Respiratory Rate 20 03/03/20 06:00 Blood Pressure 156/79 03/03/20 06:00 O2 Sat by Pulse Oximetry (%) 96 03/03/20 06:00 Wound/Incision: Yes: Other (non healing wound left big toe, +drainage, +bone destruction,) Labs: CBC, BMP 03/03/20 08:35 03/03/20 08:35 Assessment/Plan om pvd Vascular clearance Dr. Roy. ID on case for antibiosis. Scheduled for amputation this Thursday if cleared by team for procedure. Pt fully understands all risks benefits and alternatives. Has been dealing with this for months and does not want to jeopardize proximal foot. Refusing HBO. Was getting IVABX outpatient but no improvement and osteomyelitis more aggressive. Will follow. Betadine dressing to left big toe. Please maximize for OR. Will follow.
[2020-03-03] MEDS: INSULIN SLIDING SCALE (NOVOLOG) 1 VIAL SQ SCH ×3 (12:00→21:28)
--- NOTE | 2020-03-03 13:23 | PN ---
Progress Note, Physician Chief Complaint: AWAKE ALERT EVENTS REVIEWED NO DISTRESS - Current Medication List Current Medications: Active Medications Amlodipine Besylate (Norvasc -) 10 mg PO DAILY [facility] Last Admin: 03/03/20 11:06 Dose: 10 mg Documented by: Clopidogrel Bisulfate (Plavix -) 75 mg PO DAILY [facility] Last Admin: 03/03/20 11:06 Dose: 75 mg Documented by: Vancomycin HCl 750 mg/ (Dextrose) 150 mls @ 150 mls/hr IVPB Q24H [facility]; Protocol Piperacillin Sod/Tazobactam (Sod 2.25 gm/ Dextrose) 50 mls @ 100 mls/hr IVPB Q6H-IV [facility]; Protocol Dextrose/Sodium Chloride (D5-1/2ns -) 1,000 mls @ 42 mls/hr IV ASDIR [facility] Last Admin: 03/03/20 00:47 Dose: 42 mls/hr Documented by: Vancomycin HCl 750 mg/ (Dextrose) 250 mls @ 250 mls/hr IVPB Q24H [facility]; Protocol Stop: 03/03/20 20:59 Piperacillin Sod/Tazobactam (Sod 2.25 gm/ Dextrose) 50 mls @ 100 mls/hr IVPB Q6H-IV [facility]; Protocol Stop: 03/03/20 21:29 Last Admin: 03/03/20 10:30 Dose: 100 mls/hr Documented by: Insulin Aspart (Novolog Vial Sliding Scale -) 1 vial SQ ACHS [facility]; Protocol Last Admin: 03/03/20 12:00 Dose: 2 units Documented by: Lisinopril (Prinivil) 5 mg PO DAILY [facility] Last Admin: 03/03/20 11:07 Dose: 5 mg Documented by: Metoprolol Tartrate (Lopressor -) 50 mg PO BID [facility] Last Admin: 03/03/20 11:07 Dose: 50 mg Documented by: - Objective Vital Signs: Vital Signs Temperature 97.8 F 03/03/20 09:00 Pulse Rate 84 03/03/20 09:00 Respiratory Rate 20 03/03/20 09:00 Blood Pressure 129/67 03/03/20 09:00 O2 Sat by Pulse Oximetry (%) 94 L 03/03/20 09:00 Constitutional: Yes: No Distress Cardiovascular: Yes: WNL Respiratory: Yes: WNL Gastrointestinal: Yes: WNL Musculoskeletal: Yes: Joint Swelling Extremities: Yes: Deformity, Erythema Edema: Yes Integumentary: Yes: Erythema (LEFT TOE) Wound/Incision: Yes: Open to air Neurological: Yes: Pre-Existing Deficit Labs: CBC, BMP 03/03/20 08:35 03/03/20 08:35 INR, PTT INR 0.97 (0.83-1.09) 03/02/20 16:40 Problem List - Problems (1) Afib Code(s): I48.91 - UNSPECIFIED ATRIAL FIBRILLATION (2) Diabetic foot ulcer Code(s): E11.621 - TYPE 2 DIABETES MELLITUS WITH FOOT ULCER; L97.509 - NON- PRESSURE CHRONIC ULCER OTH PRT UNSP FOOT W UNSP SEVERITY Qualifiers: Diabetic foot ulcer location: toe Diabetes mellitus type: type 2 Laterality: left Non-pressure ulcer stage: with fat layer exposed Qualified Code(s): E11.621 - Type 2 diabetes mellitus with foot ulcer; L97.522 - Non-press ure chronic ulcer of other part of left foot with fat layer exposed (3) FRANKI (acute kidney injury) Code(s): N17.9 - ACUTE KIDNEY FAILURE, UNSPECIFIED (4) Acute kidney injury superimposed on CKD Code(s): N17.9 - ACUTE KIDNEY FAILURE, UNSPECIFIED; N18.9 - CHRONIC KIDNEY DISEASE, UNSPECIFIED (5) BPH (benign prostatic hypertrophy) Code(s): N40.0 - BENIGN PROSTATIC HYPERPLASIA WITHOUT LOWER URINRY TRACT SYMP (6) Diabetes mellitus, insulin dependent (IDDM), uncontrolled Code(s): E10.65 - TYPE 1 DIABETES MELLITUS WITH HYPERGLYCEMIA (7) Diabetic foot infection Code(s): E11.628 - TYPE 2 DIABETES MELLITUS WITH OTHER SKIN COMPLICATIONS; L08.9 - LOCAL INFECTION OF THE SKIN AND SUBCUTANEOUS TISSUE, UNSP (8) Foot ulcer due to secondary DM Code(s): E13.621 - OTHER SPECIFIED DIABETES MELLITUS WITH FOOT ULCER; L97.509 - NON-PRESSURE CHRONIC ULCER OTH PRT UNSP FOOT W UNSP SEVERITY (9) Osteomyelitis Code(s): M86.9 - OSTEOMYELITIS, UNSPECIFIED Assessment/Plan HEMOGLOBIN A1C 10.8% ON FEBRUARY 2020 TEST EARLIER THIS MONTH, POOR COMPLIANCE WITH LIFESTYLE AND MEDS. PODIATRY FOR SURGERY THIS THURSDAY VASC SX FOLLOW UP BGM CHECKS IV ABX ID F/U
[2020-03-03] MEDS ORDERED: VANCOMYCIN 750 MG in DEXTROSE 5%-WATER - 250 ML IVPB SCH (20:00)
[2020-03-03] MEDS ORDERED: VANCOMYCIN 750 MG in DEXTROSE 5%-WATER - 150 ML IVPB SCH (20:00)
[2020-03-03] MEDS ORDERED: PT OWN MED DRAWER 7, Y5N ONE (20:11)
--- NOTE | 2020-03-03 23:07 | PN ---
Progress Note, Physician History of Present Illness: ID CONSULT DICTATED - Current Medication List Current Medications: Active Medications Amlodipine Besylate (Norvasc -) 10 mg PO DAILY [facility] Last Admin: 03/03/20 11:06 Dose: 10 mg Documented by: Clopidogrel Bisulfate (Plavix -) 75 mg PO DAILY [facility] Last Admin: 03/03/20 11:06 Dose: 75 mg Documented by: Vancomycin HCl 750 mg/ (Dextrose) 150 mls @ 150 mls/hr IVPB Q24H [facility]; Protocol Piperacillin Sod/Tazobactam (Sod 2.25 gm/ Dextrose) 50 mls @ 100 mls/hr IVPB Q6H-IV [facility]; Protocol Dextrose/Sodium Chloride (D5-1/2ns -) 1,000 mls @ 42 mls/hr IV ASDIR [facility] Last Admin: 03/03/20 00:47 Dose: 42 mls/hr Documented by: Insulin Aspart (Novolog Vial Sliding Scale -) 1 vial SQ ACHS [facility]; Protocol Last Admin: 03/03/20 21:28 Dose: 8 units Documented by: Lisinopril (Prinivil) 5 mg PO DAILY [facility] Last Admin: 03/03/20 11:07 Dose: 5 mg Documented by: Metoprolol Tartrate (Lopressor -) 50 mg PO BID [facility] Last Admin: 03/03/20 21:29 Dose: 50 mg Documented by: - Objective Vital Signs: Vital Signs Temperature 98.8 F 03/03/20 20:32 Pulse Rate 69 03/03/20 20:32 Respiratory Rate 20 03/03/20 20:32 Blood Pressure 142/74 03/03/20 20:32 O2 Sat by Pulse Oximetry (%) 95 03/03/20 20:32 Labs: CBC, BMP 03/03/20 08:35 03/03/20 08:35 INR, PTT INR 0.97 (0.83-1.09) 03/02/20 16:40
[2020-03-04] MEDS: DEXTROSE 5%-0.45% SALINE 1,000 ML IV SCH (05:28)
--- NOTE | 2020-03-04 05:55 | CON.CARD ---
Consult Consult Specialty:: Cardiology Referred by:: Dr Gutierrez Reason for Consultation:: Preop cardiac evaluation prior to amputation Left great toe - History of Present Illness Chief Complaint: Non healing left lower ext wound History of Present Illness: 70 y/o male with a PMHx of DM, Diabetic Foot Ulcers, HTN, HLD, CAD s/p CABG, last admission 01/30-02/05 for Diabetic Foot Ulcer- non-healing. Who presents to the ED sent in by Dr Ocampo for admission for left hallux amputation. Patient is Bah[place]ian speaking [employer] line used name- Jayde, #[id number]. Patient reports being sent down to the ED from the wound center by his medical service technician for admission and amputation of his left great toe. Patient reports receiving antibiotics over several weeks for his left great toe. He reports having some yellow drainage from the toe. He denies fever, chills, or pain. Patient denies SOB, dizziness, HAWK, CP, palpitations, AP, N/V/D, constipation, dysuria. Patient denies sick contacts or recent travel. History Source: Patient Limitations to Obtaining History: Language Barrier (Bahamian) - Past Medical History CIRCUS HAND: Yes: Migraine Cardiovascular: Yes: CAD, HTN, Hyperlipdemia, [place] Gastrointestinal: Yes: GERD Renal/: Yes: Renal Inusuff Endocrine: Yes: Diabetes Mellitus - Past Surgical History Past Surgical History: Yes: CABG, Stent Patient sees Dr. Schaeffer for Cardiology. Was here in 08/2019 with NSTEMI and was transferred to [facility] for cath, reports no PCI required. Medical therapy. He now denies exertional CP, SOB, palps Denies dizziness. No edema No PND No orthopnea. - History Source History Provided By: Patient, Medical Record - Past Medical History CIRCUS HAND: Yes: Migraine Cardio/Vascular: Yes: CAD, HTN, Hyperlipdemia, [place] Gastrointestinal: Yes: GERD Renal/: Yes: Renal Inusuff Endocrine: Yes: Diabetes Mellitus - Past Surgical History Past Surgical History: Yes: CABG, Stent - Alcohol/Substance Use Hx Alcohol Use: No History of Substance Use: reports: None - Smoking History Smoking history: Former smoker Have you smoked in the past 12 months: No If you are a former smoker, when did you quit?: 1979 - Social History Usual Living Arrangement: Alone ADL: Independent 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 History of Recent Travel: No Home Medications - Allergies Allergies/Adverse Reactions: Allergies Allergy/AdvReac Type Severity Reaction Status Date / Time No Known Allergies Allergy Verified 03/02/20 15:24 - Home Medications Home Medications: Ambulatory Orders Amlodipine Besylate [Norvasc -] 10 mg PO DAILY tablet 12/29/17 Clopidogrel Bisulfate [Plavix] 75 mg PO DAILY 01/31/20 Insulin Glargine,Hum.rec.anlog [Lantus] 20 unit SQ HS 01/31/20 Metoprolol Tartrate 50 mg PO BID 01/31/20 Potassium Chloride 10 meq PO DAILY 01/31/20 Ertapenem Sodium [Invanz -] 1 gm IVPB DAILY #37 vial 02/06/20 Insulin Lispro [Humalog Kwikpen U-100] See Protocol SQ TID #1 each 02/06/20 Lisinopril [Prinivil] 5 mg PO DAILY #30 tablet 02/06/20 Family Medical History Family History: Unremarkable (not pertinent to this presentation) Family Hx Diabetes: Sister Review of Systems - Review of Systems Constitutional: reports: No Symptoms Eyes: reports: No Symptoms HENT: reports: No Symptoms Neck: reports: No Symptoms Cardiovascular: reports: No Symptoms Respiratory: reports: No Symptoms Gastrointestinal: reports: No Symptoms Genitourinary: reports: No Symptoms Breasts: reports: No Symptoms Reported Musculoskeletal: reports: No Symptoms Integumentary: reports: No Symptoms Neurological: reports: No Symptoms Endocrine: reports: No Symptoms Hematology/Lymphatic: reports: No Symptoms Psychiatric: reports: No Symptoms - Risk Factors Known Risk Factors: Yes: Diabetes Mellitus, Other (known CAD) Vital Signs: Vital Signs Temperature 98.1 F 03/04/20 01:49 Pulse Rate 69 03/04/20 01:49 Respiratory Rate 20 03/04/20 01:49 Blood Pressure 111/51 L 03/04/20 01:49 O2 Sat by Pulse Oximetry (%) 98 03/04/20 01:49 Constitutional: Yes: No Distress, Calm Neck: Yes: Supple, Trachea Midline Respiratory: Yes: CTA Bilaterally Gastrointestinal: Yes: Soft (nt) Cardiovascular: Yes: Regular Rate and Rhythm JVD: No Carotid Bruit: No PMI: Non-Displaced Heart Sounds: Yes: S1, S2 (rrr, 2/6 PAM RSB) Extremities: Yes: Other (left great toe bandaged) Edema: No Peripheral Pulses WNL: Yes Neurological: Yes: Alert, Oriented ...Motor Strength: WNL - Other Data Labs, Other Data: CBC, BMP 03/03/20 08:35 03/03/20 08:35 INR, PTT INR 0.97 (0.83-1.09) 03/02/20 16:40 Laboratory Tests 03/02/20 03/03/20 03/03/20 16:40 08:35 08:35 WBC 7.4 Hgb 10.7 L Plt Count 190 D INR 0.97 Sodium 135 L Potassium 4.7 BUN 29.1 H Creatinine 1.5 H Albumin 3.0 L NSR, old inferior infarct, no acute ST changes Echo: Report Reviewed Prior Cardiac Procedures: CABG, PTCA with Stent Ejection Fraction %: LVEF > or = 40 % Imaging - Results EKG: Image Reviewed Assessment/Plan DATA: echo 08/2019: tds, lvef 40, nl rv, mild-mod mr, mod tr, mod as IMP: Non healing LLE toe ulcer, osteo CAD s/p CABG 2015 with recent cath at [facility]-no intervention per patient. DM REC: Presently, there are no cardiac contraindications to left toe amputation being done in an effort to control infection, prevent worsening and to treat refractory wound/osteo. He has no active anginal symptoms, blood pressure is well controlled and he is in normal sinus rhythm with no acute ECG changes. The ejection fraction is moderately reduced but he appears well compensated, with no clinical signs/symptoms of CHF. Aortic stenosis is moderate, and should not pose any hemodynamically significant issues intraoperatively for a relatively short procedure with no significant fluid shifts. Recommend usual BP medications, including Metoprolol be taken on the morning of surgery with a small sip of water. Perioperative admin of Plavix/management of Plavix as per surgeon/ Podiatry. From cardiac perspective, very low risk for with temporary discontinuation if needed. Will confirm results of AUG 2019 cath with review of [facility]. Thank you.
[2020-03-04] MEDS: INSULIN SLIDING SCALE (NOVOLOG) 1 VIAL SQ SCH ×4 (05:59→21:24)
--- NOTE | 2020-03-04 08:02 | PN ---
Progress Note, Physician Chief Complaint: awake no fevers or chills - Current Medication List Current Medications: Active Medications Amlodipine Besylate (Norvasc -) 10 mg PO DAILY [facility] Last Admin: 03/03/20 11:06 Dose: 10 mg Documented by: Clopidogrel Bisulfate (Plavix -) 75 mg PO DAILY [facility] Last Admin: 03/03/20 11:06 Dose: 75 mg Documented by: Vancomycin HCl 750 mg/ (Dextrose) 150 mls @ 150 mls/hr IVPB Q24H [facility]; Protocol Piperacillin Sod/Tazobactam (Sod 2.25 gm/ Dextrose) 50 mls @ 100 mls/hr IVPB Q6H-IV [facility]; Protocol Dextrose/Sodium Chloride (D5-1/2ns -) 1,000 mls @ 42 mls/hr IV ASDIR [facility] Last Admin: 03/04/20 05:28 Dose: 42 mls/hr Documented by: Insulin Aspart (Novolog Vial Sliding Scale -) 1 vial SQ ACHS [facility]; Protocol Last Admin: 03/04/20 05:59 Dose: Not Given Documented by: Lisinopril (Prinivil) 5 mg PO DAILY [facility] Last Admin: 03/03/20 11:07 Dose: 5 mg Documented by: Metoprolol Tartrate (Lopressor -) 50 mg PO BID [facility] Last Admin: 03/03/20 21:29 Dose: 50 mg Documented by: - Objective Vital Signs: Vital Signs Temperature 98 F 03/04/20 06:00 Pulse Rate 71 03/04/20 06:00 Respiratory Rate 20 03/04/20 06:00 Blood Pressure 123/57 L 03/04/20 06:00 O2 Sat by Pulse Oximetry (%) 82 L 03/04/20 06:00 Constitutional: Yes: Mild Distress Cardiovascular: Yes: Regular Rate and Rhythm Respiratory: Yes: WNL Gastrointestinal: Yes: WNL Musculoskeletal: Yes: WNL Extremities: Yes: Erythema Wound/Incision: Yes: Open to air Labs: CBC, BMP 03/03/20 08:35 03/03/20 08:35 INR, PTT INR 0.97 (0.83-1.09) 03/02/20 16:40 Problem List - Problems (1) Afib Code(s): I48.91 - UNSPECIFIED ATRIAL FIBRILLATION (2) Diabetic foot ulcer Code(s): E11.621 - TYPE 2 DIABETES MELLITUS WITH FOOT ULCER; L97.509 - NON- PRESSURE CHRONIC ULCER OTH PRT UNSP FOOT W UNSP SEVERITY Qualifiers: Diabetic foot ulcer location: toe Diabetes mellitus type: type 2 Laterality: left Non-pressure ulcer stage: with fat layer exposed Qualified Code(s): E11.621 - Type 2 diabetes mellitus with foot ulcer; L97.522 - Non- pressure chronic ulcer of other part of left foot with fat layer exposed (3) FRANKI (acute kidney injury) Code(s): N17.9 - ACUTE KIDNEY FAILURE, UNSPECIFIED (4) Acute kidney injury superimposed on CKD Code(s): N17.9 - ACUTE KIDNEY FAILURE, UNSPECIFIED; N18.9 - CHRONIC KIDNEY DISEASE, UNSPECIFIED (5) BPH (benign prostatic hypertrophy) Code(s): N40.0 - BENIGN PROSTATIC HYPERPLASIA WITHOUT LOWER URINRY TRACT SYMP (6) Diabetes mellitus, insulin dependent (IDDM), uncontrolled Code(s): E10.65 - TYPE 1 DIABETES MELLITUS WITH HYPERGLYCEMIA (7) Diabetic foot infection Code(s): E11.628 - TYPE 2 DIABETES MELLITUS WITH OTHER SKIN COMPLICATIONS; L08.9 - LOCAL INFECTION OF THE SKIN AND SUBCUTANEOUS TISSUE, UNSP (8) Foot ulcer due to secondary DM Code(s): E13.621 - OTHER SPECIFIED DIABETES MELLITUS WITH FOOT ULCER; L97.509 - NON-PRESSURE CHRONIC ULCER OTH PRT UNSP FOOT W UNSP SEVERITY (9) Osteomyelitis Code(s): M86.9 - OSTEOMYELITIS, UNSPECIFIED Assessment/Plan HEMOGLOBIN A1C 10.8% ON FEBRUARY 2020 TEST EARLIER THIS MONTH, POOR COMPLIANCE WITH LIFESTYLE AND MEDS. PODIATRY FOR SURGERY THIS THURSDAY VASC SX FOLLOW UP BGM CHECKS IV ABX ID F/U
[2020-03-04] MEDS ORDERED: DEXTROSE 5%-WATER - 50 ML IVPB ONE ×2 (10:39→16:37)
[2020-03-04] MEDS ORDERED: PIPERACILLIN/TAZOBACTAM 3.375 GM VIAL IVPB ONE ×2 (10:39→16:36)
[2020-03-04] MEDS: LISINOPRIL 5 MG TABLET (FP) PO SCH (11:19)
[2020-03-04] MEDS: METOPROLOL TARTRATE 50 MG TABLET (FP) PO SCH ×2 (11:19→21:26)
[2020-03-04] MEDS: CLOPIDOGREL BISULFATE 75 MG TABLET (FP) PO SCH (11:19)
[2020-03-04] MEDS: amLODIPine BESYLATE 10 MG TABLET (FP) PO SCH (11:19)
[2020-03-04] MEDS: VANCOMYCIN 1 GRAM (PRE-DOCKED) 1,000 MG/250 ML BAG IVPB SCH (11:20)
[2020-03-04] MEDS: PIPERACILLIN/TAZOB 3.375 GM 3.375 GM in DEXTROSE 5%-WATER - 50 ML IVPB SCH ×2 (11:20→17:23)
[2020-03-04] MEDS: PIPERACILLIN/TAZOB 2.25 GM 2.25 GM in DEXTROSE 5%-WATER - 50 ML IVPB SCH ×2 (20:43→20:44)
--- NOTE | 2020-03-04 22:59 | PN ---
Progress Note, Physician History of Present Illness: NO C/O FOOT PAIN NO FEVER/ CHILLS TOLERATING ANTIBIOTIC - Current Medication List Current Medications: Active Medications Amlodipine Besylate (Norvasc -) 10 mg PO DAILY [facility] Last Admin: 03/04/20 11:19 Dose: 10 mg Documented by: Clopidogrel Bisulfate (Plavix -) 75 mg PO DAILY [facility] Last Admin: 03/04/20 11:19 Dose: 75 mg Documented by: Dextrose/Sodium Chloride (D5-1/2ns -) 1,000 mls @ 42 mls/hr IV ASDIR [facility] Last Admin: 03/04/20 05:28 Dose: 42 mls/hr Documented by: Piperacillin Sod/Tazobactam (Sod 3.375 gm/ Dextrose) 50 mls @ 100 mls/hr IVPB Q8H-IV [facility]; Protocol Last Admin: 03/04/20 17:23 Dose: 100 mls/hr Documented by: Vancomycin HCl (Vancomycin (Pre-Docked)) 1,000 mg in 250 mls @ 166.667 mls/hr IVPB DAILY [facility]; Protocol Last Admin: 03/04/20 11:20 Dose: 166.667 mls/hr Documented by: Insulin Aspart (Novolog Vial Sliding Scale -) 1 vial SQ ACHS [facility]; Protocol Last Admin: 03/04/20 21:24 Dose: 6 units Documented by: Lisinopril (Prinivil) 5 mg PO DAILY [facility] Last Admin: 03/04/20 11:19 Dose: 5 mg Documented by: Metoprolol Tartrate (Lopressor -) 50 mg PO BID [facility] Last Admin: 03/04/20 21:26 Dose: 50 mg Documented by: - Objective Vital Signs: Vital Signs Temperature 98.0 F 03/04/20 21:00 Pulse Rate 66 03/04/20 21:00 Respiratory Rate 16 03/04/20 21:00 Blood Pressure 142/72 03/04/20 21:00 O2 Sat by Pulse Oximetry (%) 98 03/04/20 21:00 Constitutional: Yes: No Distress Eyes: Yes: Conjunctiva Clear Cardiovascular: Yes: Regular Rate and Rhythm, S1, S2 Respiratory: Yes: CTA Bilaterally Gastrointestinal: Yes: Normal Bowel Sounds Extremities: Yes: Other (GREAT TOE ULCER NO ERYTHEMA/ DRAINAGE) Labs: CBC, BMP 03/03/20 08:35 03/03/20 08:35 INR, PTT INR 0.97 (0.83-1.09) 03/02/20 16:40 Assessment/Plan GREAT TOE ULCER FOR AMPUTATION CONTINUE VANCOMYCIN/ZOSYN
[2020-03-05] MEDS ORDERED: PIPERACILLIN/TAZOBACTAM 3.375 GM VIAL IVPB ONE ×3 (00:59→16:59)
[2020-03-05] MEDS ORDERED: DEXTROSE 5%-WATER - 50 ML IVPB ONE ×3 (00:59→16:59)
[2020-03-05] MEDS: DEXTROSE 5%-0.45% SALINE 1,000 ML IV SCH ×2 (01:42→09:38)
[2020-03-05] MEDS: PIPERACILLIN/TAZOB 3.375 GM 3.375 GM in DEXTROSE 5%-WATER - 50 ML IVPB SCH ×3 (01:43→17:41)
[2020-03-05] MEDS: INSULIN SLIDING SCALE (NOVOLOG) 1 VIAL SQ SCH ×4 (06:43→21:39)
[2020-03-05 08:53] LABS: HEMATOCRIT 29.9 % (35.4-49); MCH 27.9 pg (25.7-33.7); MCHC 33.5 g/dl (32.0-35.9); MEAN CELL VOLUME 83.3 fl (80-96); MEAN PLT VOLUME 9.3 fl (7.5-11.1); PLATELET COUNT 211 K/MM3 (134-434); RBC 3.59 M/mm3 (4.00-5.60); RDW 16.2 % (11.9-15.9); WHITE BLOOD COUNT 8.5 K/mm3 (4.0-10.0)
[2020-03-05 09:35] LABS: ALBUMIN 2.8 g/dl (3.4-5.0); BILIRUBIN,TOTAL 0.5 mg/dL (0.2-1); BLOOD UREA NITROGEN 43.4 mg/dL (7-18); CALCIUM 8.3 mg/dL (8.5-10.1); CREATININE 2.1 mg/dL (0.55-1.3); POTASSIUM 5.1 mmol/L (3.5-5.1); TOT PROT 7.2 g/dl (6.4-8.2)
[2020-03-05] MEDS: CLOPIDOGREL BISULFATE 75 MG TABLET (FP) PO SCH (09:39)
[2020-03-05] MEDS: METOPROLOL TARTRATE 50 MG TABLET (FP) PO SCH ×2 (09:39→21:39)
[2020-03-05] MEDS: amLODIPine BESYLATE 10 MG TABLET (FP) PO SCH (09:40)
[2020-03-05] MEDS: LISINOPRIL 5 MG TABLET (FP) PO SCH (09:40)
[2020-03-05] MEDS: VANCOMYCIN 1 GRAM (PRE-DOCKED) 1,000 MG/250 ML BAG IVPB SCH (10:54)
--- NOTE | 2020-03-05 11:39 | PN ---
Progress Note, Physician Chief Complaint: Left foot diabetic wound History of Present Illness: NAD seen by podiatry On ertapenem. ESR/CRP elevated - Current Medication List Current Medications: Active Medications Amlodipine Besylate (Norvasc -) 10 mg PO DAILY [facility] Last Admin: 03/05/20 09:40 Dose: 10 mg Documented by: Clopidogrel Bisulfate (Plavix -) 75 mg PO DAILY [facility] Last Admin: 03/05/20 09:39 Dose: 75 mg Documented by: Heparin Sodium (Porcine) (Heparin -) 5,000 unit SQ BID [facility] Dextrose/Sodium Chloride (D5-1/2ns -) 1,000 mls @ 42 mls/hr IV ASDIR [facility] Last Admin: 03/05/20 09:38 Dose: 42 mls/hr Documented by: Piperacillin Sod/Tazobactam (Sod 3.375 gm/ Dextrose) 50 mls @ 100 mls/hr IVPB Q8H-IV [facility]; Protocol Last Admin: 03/05/20 09:39 Dose: 100 mls/hr Documented by: Vancomycin HCl (Vancomycin (Pre-Docked)) 1,000 mg in 250 mls @ 166.667 mls/hr IVPB DAILY [facility]; Protocol Last Admin: 03/05/20 10:54 Dose: 166.667 mls/hr Documented by: Insulin Aspart (Novolog Vial Sliding Scale -) 1 vial SQ ACHS [facility]; Protocol Last Admin: 03/05/20 06:43 Dose: 2 units Documented by: Lisinopril (Prinivil) 5 mg PO DAILY [facility] Last Admin: 03/05/20 09:40 Dose: 5 mg Documented by: Metoprolol Tartrate (Lopressor -) 50 mg PO BID [facility] Last Admin: 03/05/20 09:39 Dose: 50 mg Documented by: - Objective Vital Signs: Vital Signs Temperature 97.7 F 03/05/20 10:00 Pulse Rate 63 03/05/20 10:00 Respiratory Rate 18 03/05/20 10:00 Blood Pressure 143/71 03/05/20 10:00 O2 Sat by Pulse Oximetry (%) 100 03/05/20 10:00 Constitutional: Yes: Well Nourished, No Distress, Calm Cardiovascular: Yes: Regular Rate and Rhythm Respiratory: Yes: Regular, CTA Bilaterally Gastrointestinal: Yes: Normal Bowel Sounds, Soft Genitourinary: Yes: WNL Musculoskeletal: Yes: WNL Extremities: Yes: WNL Edema: No Peripheral Pulses WNL: No Peripheral Pulses: Left Doralis Pedis: 1+ Integumentary: Yes: Other (left big toe open wound, no drainage or necrosis noted) Wound/Incision: Yes: Dressing Removed Neurological: Yes: Alert, Oriented Psychiatric: Yes: Alert, Oriented Labs: CBC, BMP 03/05/20 06:59 03/05/20 06:59 INR, PTT INR 0.97 (0.83-1.09) 03/02/20 16:40 Problem List - Problems (1) Diabetic foot ulcer Assessment/Plan: -Has a PICC line -Continue Ertapenem -ID on board -Afebrile -Podiatry on board -Seen by Vascular surgery -Hold plavix for now -Determine in AM coverage for outpatient CO2 Angiogram, otherwise, will do it inpatient Problems reviewed: Yes Code(s): E11.621 - TYPE 2 DIABETES MELLITUS WITH FOOT ULCER; L97.509 - NON- PRESSURE CHRONIC ULCER OTH PRT UNSP FOOT W UNSP SEVERITY Qualifiers: Diabetic foot ulcer location: toe Diabetes mellitus type: type 2 Laterality: left Non-pressure ulcer stage: with fat layer exposed Qualified Code(s): E11.621 - Type 2 diabetes mellitus with foot ulcer; L97.522 - Non- pressure chronic ulcer of other part of left foot with fat layer exposed (2) Acute kidney injury superimposed on CKD Assessment/Plan: -Seen by Nephrology -Cr at baseline -Monitor trend Problems reviewed: Yes Code(s): N17.9 - ACUTE KIDNEY FAILURE, UNSPECIFIED; N18.9 - CHRONIC KIDNEY DISEASE, UNSPECIFIED (3) CAD (coronary artery disease) Assessment/Plan: -Hold plavix for now, resume if surgical intervention is cancelled -Continue BB + Statin Problems reviewed: Yes Code(s): I25.10 - ATHSCL HEART DISEASE OF [place] CORONARY ARTERY W/O ANG PCTRS (4) Diabetes Assessment/Plan: -Last A1c at 10.8 on 02/04 -BGM AC HS -Levemir 10 U BID -ISS -Diabetic sodium diet Problems reviewed: Yes Code(s): E11.9 - TYPE 2 DIABETES MELLITUS WITHOUT COMPLICATIONS Assessment/Plan See problem list
--- NOTE | 2020-03-05 12:06 | PN ---
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: s: no cp sob palps dizzy Current Medications Generic Name Dose Route Start Last Admin Trade Name Chapo PRN Reason Stop Dose Admin Amlodipine Besylate 10 mg 03/03/20 10:00 03/05/20 09:40 Norvasc - PO 10 mg DAILY [facility] Administration Clopidogrel Bisulfate 75 mg 03/03/20 10:00 03/05/20 09:39 Plavix - PO 75 mg DAILY [facility] Administration Heparin Sodium (Porcine) 5,000 unit 03/05/20 11:45 Heparin - SQ BID [facility] Dextrose/Sodium Chloride 1,000 mls @ 42 mls/hr 03/02/20 23:45 03/05/20 09:38 D5-1/2ns - IV 42 mls/hr ASDIR [facility] Administration Piperacillin Sod/Tazobactam 50 mls @ 100 mls/hr 03/04/20 10:00 03/05/20 09:39 Sod 3.375 gm/ Dextrose IVPB 100 mls/hr Q8H-IV [facility] Administration Protocol Vancomycin HCl 1,000 mg in 250 mls @ 166.667 mls/hr 03/04/20 10:00 03/05/20 10:54 Vancomycin (Pre-Docked) IVPB 166.667 mls/hr DAILY [facility] Administration Protocol Insulin Aspart 1 vial 03/03/20 11:00 03/05/20 06:43 Novolog Vial Sliding Scale - SQ 2 units ACHS [facility] Administration Protocol Lisinopril 5 mg 03/03/20 10:00 03/05/20 09:40 Prinivil PO 5 mg DAILY [facility] Administration Metoprolol Tartrate 50 mg 03/03/20 10:00 03/05/20 09:39 Lopressor - PO 50 mg BID [facility] Administration Vital Signs Period Temp Pulse Resp BP Sys/Mcconnell Pulse Ox Last 24 Hr 97.7 F-98.1 F 59-85 16-18 111-143/58-72 93-100 Constitutional: Yes: No Distress, Calm Neck: Yes: Supple, Trachea Midline Respiratory: Yes: CTA Bilaterally Gastrointestinal: Yes: Soft (nt) Cardiovascular: Yes: Regular Rate and Rhythm JVD: No Carotid Bruit: No PMI: Non-Displaced Heart Sounds: Yes: S1, S2 (rrr, 2/6 PAM RSB) Extremities: Yes: Other (left great toe bandaged) Edema: No Neurological: Yes: Alert, Oriented CBC, BMP 03/05/20 06:59 03/05/20 06:59 NSR, old inferior infarct, no acute ST changes Echo: Report Reviewed Prior Cardiac Procedures: CABG, PTCA with Stent Ejection Fraction %: LVEF > or = 40 % Imaging - Results EKG: Image Reviewed Assessment/Plan DATA: echo 08/2019: tds, lvef 40, nl rv, mild-mod mr, mod tr, mod as IMP: Non healing LLE toe ulcer, osteo CAD s/p CABG 2015 with recent cath at [facility]-no intervention per patient. DM REC: Presently, there are no cardiac contraindications to left toe amputation being done in an effort to control infection, prevent worsening and to treat refractory wound/osteo. He has no active anginal symptoms, blood pressure is well controlled and he is in normal sinus rhythm with no acute ECG changes. The ejection fraction is moderately reduced but he appears well compensated, with no clinical signs/symptoms of CHF. Aortic stenosis is moderate, and should not pose any hemodynamically significant issues intraoperatively for a relatively short procedure with no significant fluid shifts. Recommend usual BP medications, including Metoprolol be taken on the morning of surgery with a small sip of water. Perioperative admin of Plavix/management of Plavix as per surgeon/ Podiatry. From cardiac perspective, very low risk with temporary discontinuation if needed.
[2020-03-05] MEDS: HEPARIN NA (PORCINE) 5,000 UNITS/ML 1ML VIAL SQ SCH (12:12)
--- NOTE | 2020-03-05 13:33 | CONSULT ---
Consult Consult Specialty:: Nephrology Reason for Consultation:: ckd - History of Present Illness Chief Complaint: sent in for left hallux amputation History of Present Illness: Pt is a 70 year old male with pmhx of dm, DFU, htn, hld, cad, cabg, and left f oot ulcer who was sent in for left hallux amputation. 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 He has history of CKD. He denies shortness of breath or palpitations. He denies fevers or chills. He denies dysuria or hematuria. He denies nsaids use. - History Source History Provided By: Patient - Past Medical History [employer]: Yes: Migraine Cardio/Vascular: Yes: CAD, HTN, Hyperlipdemia, [place] Gastrointestinal: Yes: GERD Renal/: Yes: Renal Inusuff Endocrine: Yes: Diabetes Mellitus - Past Surgical History Past Surgical History: Yes: CABG, Stent - Alcohol/Substance Use Hx Alcohol Use: No History of Substance Use: reports: None - Smoking History Smoking history: Former smoker Have you smoked in the past 12 months: No If you are a former smoker, when did you quit?: 1979 - Social History Usual Living Arrangement: Alone ADL: Independent 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 [employer] History of Recent Travel: No Home Medications - Allergies Allergies/Adverse Reactions: Allergies Allergy/AdvReac Type Severity Reaction Status Date / Time No Known Allergies Allergy Verified 03/02/20 15:24 - Home Medications Home Medications: Ambulatory Orders Amlodipine Besylate [Norvasc -] 10 mg PO DAILY tablet 12/29/17 Clopidogrel Bisulfate [Plavix] 75 mg PO DAILY 01/31/20 Insulin Glargine,Hum.rec.anlog [Lantus] 20 unit SQ HS 01/31/20 Metoprolol Tartrate 50 mg PO BID 01/31/20 Potassium Chloride 10 meq PO DAILY 01/31/20 Ertapenem Sodium [Invanz -] 1 gm IVPB DAILY #37 vial 02/06/20 Insulin Lispro [Humalog Kwikpen U-100] See Protocol SQ TID #1 each 02/06/20 Lisinopril [Prinivil] 5 mg PO DAILY #30 tablet 02/06/20 Family Medical History Family History: Unremarkable (not pertinent to this presentation) Family Hx Diabetes: Sister Review of Systems - Review of Systems Constitutional: reports: No Symptoms Eyes: reports: No Symptoms HENT: reports: No Symptoms Neck: reports: No Symptoms Cardiovascular: reports: No Symptoms Respiratory: reports: No Symptoms Gastrointestinal: reports: No Symptoms Genitourinary: reports: No Symptoms Musculoskeletal: reports: No Symptoms Integumentary: reports: No Symptoms Neurological: reports: No Symptoms Endocrine: reports: No Symptoms Hematology/Lymphatic: reports: No Symptoms Psychiatric: reports: No Symptoms Physical Exam Vital Signs: Vital Signs Temperature 97.7 F 03/05/20 10:00 Pulse Rate 63 03/05/20 10:00 Respiratory Rate 18 03/05/20 10:00 Blood Pressure 143/71 03/05/20 10:00 O2 Sat by Pulse Oximetry (%) 100 03/05/20 10:00 Constitutional: Yes: Calm Eyes: Yes: Conjunctiva Clear HENT: Yes: Atraumatic Neck: Yes: Supple Cardiovascular: Yes: S1, S2 Respiratory: Yes: CTA Bilaterally Gastrointestinal: Yes: Normal Bowel Sounds, Soft Renal/: Yes: WNL Musculoskeletal: Yes: WNL Edema: No Wound/Incision: Yes: Dressing Dry and Intact Neurological: Yes: Oriented Psychiatric: Yes: Oriented Labs: CBC, BMP 03/05/20 06:59 03/05/20 06:59 Imaging - Results Chest X-ray: Report Reviewed Problem List - Problems (1) Afib Code(s): I48.91 - UNSPECIFIED ATRIAL FIBRILLATION (2) Diabetic foot ulcer Code(s): E11.621 - TYPE 2 DIABETES MELLITUS WITH FOOT ULCER; L97.509 - NON- PRESSURE CHRONIC ULCER OTH PRT UNSP FOOT W UNSP SEVERITY Qualifiers: Diabetic foot ulcer location: toe Diabetes mellitus type: type 2 Laterality: left Non-pressure ulcer stage: with fat layer exposed Qualified Code(s): E11.621 - Type 2 diabetes mellitus with foot ulcer; L97.522 - Non- pressure chronic ulcer of other part of left foot with fat layer exposed (3) Renal insufficiency Code(s): N28.9 - DISORDER OF KIDNEY AND URETER, UNSPECIFIED Assessment/Plan Current Medications Generic Name Dose Route Start Last Admin Trade Name Freq PRN Reason Stop Dose Admin Amlodipine Besylate 10 mg 03/03/20 10:00 03/05/20 09:40 Norvasc - PO 10 mg DAILY [facility] Administration Clopidogrel Bisulfate 75 mg 03/03/20 10:00 03/05/20 09:39 Plavix - PO 75 mg DAILY [facility] Administration Heparin Sodium (Porcine) 5,000 unit 03/05/20 11:45 03/05/20 12:12 Heparin - SQ 5,000 unit BID [facility] Administration Dextrose/Sodium Chloride 1,000 mls @ 42 mls/hr 03/02/20 23:45 03/05/20 09:38 D5-1/2ns - IV 42 mls/hr ASDIR [facility] Administration Piperacillin Sod/Tazobactam 50 mls @ 100 mls/hr 03/04/20 10:00 03/05/20 09:39 Sod 3.375 gm/ Dextrose IVPB 100 mls/hr Q8H-IV [facility] Administration Protocol Vancomycin HCl 1,000 mg in 250 mls @ 166.667 mls/hr 03/04/20 10:00 03/05/20 10:54 Vancomycin (Pre-Docked) IVPB 166.667 mls/hr DAILY [facility] Administration Protocol Insulin Aspart 1 vial 03/03/20 11:00 03/05/20 12:14 Novolog Vial Sliding Scale - SQ 4 units ACHS [facility] Administration Protocol Lisinopril 5 mg 03/03/20 10:00 03/05/20 09:40 Prinivil PO 5 mg DAILY [facility] Administration Metoprolol Tartrate 50 mg 03/03/20 10:00 03/05/20 09:39 Lopressor - PO 50 mg BID [facility] Administration Impression 1. CKD 2. DM 3. HTN 4. DFU 5. HLD 6. BPH 7. osteo 8. proteinuria 9. FRANKI Plan - change fluids to 1/2 ns as glucose is elevated - repeat labs in am - monitor bp - check vanco levels - renal dose meds
--- NOTE | 2020-03-05 14:25 | PN ---
Progress Note, Physician History of Present Illness: NO C/O FOOT PAIN NO FEVER/ CHILLS TOLERATING ANTIBIOTIC WBC WNL FOR AMPUTATION AM - Current Medication List Current Medications: Active Medications Amlodipine Besylate (Norvasc -) 10 mg PO DAILY [facility] Last Admin: 03/05/20 09:40 Dose: 10 mg Documented by: Clopidogrel Bisulfate (Plavix -) 75 mg PO DAILY [facility] Last Admin: 03/05/20 09:39 Dose: 75 mg Documented by: Heparin Sodium (Porcine) (Heparin -) 5,000 unit SQ BID [facility] Last Admin: 03/05/20 12:12 Dose: 5,000 unit Documented by: Piperacillin Sod/Tazobactam (Sod 3.375 gm/ Dextrose) 50 mls @ 100 mls/hr IVPB Q8H-IV [facility]; Protocol Last Admin: 03/05/20 09:39 Dose: 100 mls/hr Documented by: Vancomycin HCl (Vancomycin (Pre-Docked)) 1,000 mg in 250 mls @ 166.667 mls/hr IVPB DAILY [facility]; Protocol Last Admin: 03/05/20 10:54 Dose: 166.667 mls/hr Documented by: Sodium Chloride (1/2 Normal Saline) 1,000 mls @ 75 mls/hr IV ASDIR [facility] Insulin Aspart (Novolog Vial Sliding Scale -) 1 vial SQ ACHS [facility]; Protocol Last Admin: 03/05/20 12:14 Dose: 4 units Documented by: Lisinopril (Prinivil) 5 mg PO DAILY [facility] Last Admin: 03/05/20 09:40 Dose: 5 mg Documented by: Metoprolol Tartrate (Lopressor -) 50 mg PO BID [facility] Last Admin: 03/05/20 09:39 Dose: 50 mg Documented by: - Objective Vital Signs: Vital Signs Temperature 97.8 F 03/05/20 14:10 Pulse Rate 65 03/05/20 14:10 Respiratory Rate 18 03/05/20 14:10 Blood Pressure 125/62 03/05/20 14:10 O2 Sat by Pulse Oximetry (%) 96 03/05/20 14:10 Constitutional: Yes: No Distress Eyes: Yes: Conjunctiva Clear Cardiovascular: Yes: Regular Rate and Rhythm, S1, S2 Respiratory: Yes: CTA Bilaterally Gastrointestinal: Yes: Normal Bowel Sounds, Soft. No: Tenderness Extremities: Yes: Other (GREAT TOE ULCER DRY NO ERYTHEMA/ DRAINAGE) Labs: CBC, BMP 03/05/20 06:59 03/05/20 06:59 INR, PTT INR 0.97 (0.83-1.09) 03/02/20 16:40 Assessment/Plan GREAT TOE ULCER/ OSTEOMYELITIS FOR AMPUTATION CONTINUE VANCOMYCIN/ZOSYN
[2020-03-05] MEDS: SODIUM CHLORIDE 0.45% 1,000 ML IV SCH (15:26)
[2020-03-05] MEDS ORDERED: INSULIN (NOVOLOG) ASPART 100 UNITS/ML 10ML VIAL ONE (21:37)
[2020-03-06] MEDS ORDERED: PIPERACILLIN/TAZOBACTAM 3.375 GM VIAL IVPB ONE ×3 (01:07→16:33)
[2020-03-06] MEDS ORDERED: DEXTROSE 5%-WATER - 50 ML IVPB ONE ×3 (01:07→16:33)
[2020-03-06] MEDS: PIPERACILLIN/TAZOB 3.375 GM 3.375 GM in DEXTROSE 5%-WATER - 50 ML IVPB SCH ×3 (02:00→18:26)
[2020-03-06] MEDS: SODIUM CHLORIDE 0.45% 1,000 ML IV SCH ×3 (05:53→21:49)
[2020-03-06] MEDS: INSULIN SLIDING SCALE (NOVOLOG) 1 VIAL SQ SCH ×4 (06:03→21:51)
[2020-03-06] MEDS: PIPERACILLIN/TAZOB 2.25 GM 2.25 GM in DEXTROSE 5%-WATER - 50 ML IVPB SCH ×2 (08:06→08:07)
[2020-03-06 08:44] LABS: ALBUMIN 2.9 g/dl (3.4-5.0); BILIRUBIN,TOTAL 0.4 mg/dL (0.2-1); BLOOD UREA NITROGEN 36.2 mg/dL (7-18); CALCIUM 8.6 mg/dL (8.5-10.1); POTASSIUM 4.8 mmol/L (3.5-5.1); TOT PROT 7.7 g/dl (6.4-8.2)
--- NOTE | 2020-03-06 09:27 | PN ---
Progress Note, Physician Chief Complaint: OM left great toe. - Current Medication List Current Medications: Active Medications Amlodipine Besylate (Norvasc -) 10 mg PO DAILY [facility] Last Admin: 03/05/20 09:40 Dose: 10 mg Documented by: Heparin Sodium (Porcine) (Heparin -) 5,000 unit SQ BID [facility] Last Admin: 03/05/20 12:12 Dose: 5,000 unit Documented by: Piperacillin Sod/Tazobactam (Sod 3.375 gm/ Dextrose) 50 mls @ 100 mls/hr IVPB Q8H-IV [facility]; Protocol Last Admin: 03/06/20 09:09 Dose: 100 mls/hr Documented by: Sodium Chloride (1/2 Normal Saline) 1,000 mls @ 75 mls/hr IV ASDIR [facility] Last Admin: 03/06/20 05:53 Dose: 75 mls/hr Documented by: Insulin Aspart (Novolog Vial Sliding Scale -) 1 vial SQ ACHS [facility]; Protocol Last Admin: 03/06/20 06:03 Dose: 4 units Documented by: Lisinopril (Prinivil) 5 mg PO DAILY [facility] Last Admin: 03/05/20 09:40 Dose: 5 mg Documented by: Metoprolol Tartrate (Lopressor -) 50 mg PO BID [facility] Last Admin: 03/05/20 21:39 Dose: 50 mg Documented by: - Objective Vital Signs: Vital Signs Temperature 97.8 F 03/06/20 08:58 Pulse Rate 68 03/06/20 08:58 Respiratory Rate 18 03/06/20 08:58 Blood Pressure 128/68 03/06/20 08:58 O2 Sat by Pulse Oximetry (%) 95 03/06/20 08:58 Wound/Incision: Yes: Other (left big toe improved drainage, +improved cellulitis, +om,) Labs: CBC, BMP 03/05/20 06:59 03/06/20 06:50 INR, PTT INR 0.97 (0.83-1.09) 03/02/20 16:40 Assessment/Plan om pvd Vascular clearance not done. Pt still on plavix. Discussed with Dr. Gutierrez will dc Plavix. Will dc to home and continue ivabx in hospital outpatient daily. Re-admit on Thursday. OR Thursday for left great toe amp. Re-consulted Dr. Roy for clearance. Continue Betadine dressing changes. Pt still refusing HBO as bone continues to deteriorate. Will follow.
[2020-03-06] MEDS ORDERED: PT OWN MED DRAWER 7, Y5N ONE (10:08)
[2020-03-06] MEDS: METOPROLOL TARTRATE 50 MG TABLET (FP) PO SCH ×2 (10:25→21:50)
[2020-03-06] MEDS: LISINOPRIL 5 MG TABLET (FP) PO SCH (10:25)
[2020-03-06] MEDS: amLODIPine BESYLATE 10 MG TABLET (FP) PO SCH (10:25)
--- NOTE | 2020-03-06 10:26 | CONSULT ---
- Consultation REQUESTING PROVIDER: CONSULT REQUEST: We have been asked to surgically evaluate this patient for vascular flow of right LE. PCP:Brannon Gutierrez HISTORY OF PRESENT ILLNESS: This is a 70 y/o male with a PMHx of DM, Diabetic Foot Ulcers, HTN, HLD, CAD s/p CABG, last admission 01/30-02/05 for Diabetic Foot Ulcer- non-healing. Who presents to the ED sent in by Dr Ocampo for amputation of left great toe secondary to chronic Osteomyelitis. The patient has recently completed IV antibiotics over several weeks for his left great toe and he continue to have chronic yellow drainage. He denies fever, chills, or pain. Patient denies SOB, dizziness, HAWK, CP, palpitations, AP, N/V/D, constipation, dysuria. Patient denies sick contacts or recent travel. History Source: Patient/ EMR - Past Medical History RECRUITMENT CONSULTANT: Yes: Migraine Cardiovascular: Yes: CAD, HTN, Hyperlipdemia, PA Gastrointestinal: Yes: GERD Renal/: Yes: Renal Inusuff Endocrine: Yes: Diabetes Mellitus - Past Surgical History Past Surgical History: Yes: CABG, Stent - Smoking History Smoking history: Former smoker Have you smoked in the past 12 months: No If you are a former smoker, when did you quit?: 1979 - Alcohol/Substance Use Hx Alcohol Use: No History of Substance Use: reports: None - Social History Usual Living Arrangement: Yes: Alone Do you think of yourself as: Declined to answer ADL: Independent 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 History of Recent Travel: No Home Medications - Allergies Allergies/Adverse Reactions: Allergies Allergy/AdvReac Type Severity Reaction Status Date / Time No Known Allergies Allergy Verified 03/02/20 15:24 - Home Medications Home Medications: Ambulatory Orders Amlodipine Besylate [Norvasc -] 10 mg PO DAILY tablet 12/29/17 Clopidogrel Bisulfate [Plavix] 75 mg PO DAILY 01/31/20 Insulin Glargine,Hum.rec.anlog [Lantus] 20 unit SQ HS 01/31/20 Metoprolol Tartrate 50 mg PO BID 01/31/20 Potassium Chloride 10 meq PO DAILY 01/31/20 Ertapenem Sodium [Invanz -] 1 gm IVPB DAILY #37 vial 02/06/20 Insulin Lispro [Humalog Kwikpen U-100] See Protocol SQ TID #1 each 02/06/20 Lisinopril [Prinivil] 5 mg PO DAILY #30 tablet 02/06/20 Family Medical History Family History: As Documented Family Hx Diabetes: Sister Review of Systems - Review of Systems Constitutional: reports: No Symptoms Eyes: reports: No Symptoms HENT: reports: No Symptoms Neck: reports: No Symptoms Cardiovascular: reports: No Symptoms Respiratory: reports: No Symptoms Gastrointestinal: reports: No Symptoms Genitourinary: reports: No Symptoms Breasts: reports: No Symptoms Reported Musculoskeletal: reports: No Symptoms Integumentary: reports: Wound (left great toe) Neurological: reports: No Symptoms Endocrine: reports: No Symptoms Hematology/Lymphatic: reports: No Symptoms Psychiatric: reports: No Symptoms Pain Intensity: 0 Physical Examination Vital Signs Period Temp Pulse Resp BP Sys/Mcconnell Pulse Ox Last 24 Hr 97.7 F-98.6 F 65-69 18-18 121-148/59-75 93-98 Constitutional: No Distress, Calm, Eyes: WNL, Conjunctiva Clear, PERRL HENT: WNL, Atraumatic, Normocephalic Neck: Trachea Midline Respiratory: Unlabored resp on RA, no accessory muscle use, Gastrointestinal: Soft, ND, NT Musculoskeletal: moving all extremities without limitation Extremities: B/L LE compartments soft, supple and non-tender with minimal chonic skin changes seen throughout. b/l feet warm to touch with diffuse chiara color changes distally. Edema: No Peripheral Pulses: + strong signal on doppler over bilateral DP pulses, faint, questionable signal over bilateral TP pulses. Integumentary: DM ulcer @1x1 on plantar surface of left great toe with yellow d/c on exposed bone. surrounding tissue desqumated and peeling no other wounds seen on feet. right foot with some skin desqumation but no wounds seen. Neurological:Alert, Oriented, Cran Nerves II-XII Intact Psychiatric: Yes: WNL, Alert, Oriented Labs: Abnormal Lab Results 03/06/20 06:50 Anion Gap 7 L BUN 36.2 H Creatinine 2.0 H Random Glucose 232 H Albumin 2.9 L CBC, BMP 03/05/20 06:59 03/06/20 06:50 Lab Results WBC 8.5 K/mm3 (4.0-10.0) 03/05/20 06:59 RBC 3.59 M/mm3 (4.00-5.60) L 03/05/20 06:59 Hgb 10.0 GM/dL (11.7-16.9) L 03/05/20 06:59 Hct 29.9 % (35.4-49) L 03/05/20 06:59 MCV 83.3 fl (80-96) 03/05/20 06:59 MCHC 33.5 g/dl (32.0-35.9) 03/05/20 06:59 RDW 16.2 % (11.9-15.9) H 03/05/20 06:59 Plt Count 211 K/MM3 (134-434) 03/05/20 06:59 INR 0.97 (0.83-1.09) 03/02/20 16:40 Sodium 137 mmol/L (136-145) 03/06/20 06:50 Potassium 4.8 mmol/L (3.5-5.1) 03/06/20 06:50 Chloride 106 mmol/L (98-107) 03/06/20 06:50 Carbon Dioxide 25 mmol/L (21-32) 03/06/20 06:50 Anion Gap 7 MMOL/L (8-16) L 03/06/20 06:50 BUN 36.2 mg/dL (7-18) H 03/06/20 06:50 Creatinine 2.0 mg/dL (0.55-1.3) H 03/06/20 06:50 Random Glucose 232 mg/dL (74-106) H 03/06/20 06:50 Calcium 8.6 mg/dL (8.5-10.1) 03/06/20 06:50 Blood Type A POSITIVE 03/02/20 16:40 Antibody Screen Negative 03/02/20 16:40 X-ray left toes: degenerative changes suspicious for OM. Problem List - Problems (1) Diabetic foot ulcer Assessment/Plan: Patient with diabetic toe ulcer and OM, plan for amputation of left great toe later this week with Dr Ocampo. Patient has strong signals over b/l DP but unable to evaluate PT flow with bedside doppler, Patient will need additional study to evaluate flow. Per Renal, no contrast, will need CO2 Angiogram. -plan for CO2 angiogram/plasty on 03/[address] Roy -medical optimization -Renal recs appreciated -NPO after midnight 03/08 Evaluation and plan discussed with Dr Roy. Code(s): E11.621 - TYPE 2 DIABETES MELLITUS WITH FOOT ULCER; L97.509 - NON- PRESSURE CHRONIC ULCER OTH PRT UNSP FOOT W UNSP SEVERITY Qualifiers: Diabetic foot ulcer location: toe Diabetes mellitus type: type 2 Laterality: left Non-pressure ulcer stage: with fat layer exposed Qualified Code(s): E11.621 - Type 2 diabetes mellitus with foot ulcer; L97.522 - Non- pressure chronic ulcer of other part of left foot with fat layer exposed
--- NOTE | 2020-03-06 10:44 | DS ---
Physical Examination Vital Signs: Vital Signs Temperature 97.8 F 03/06/20 08:58 Pulse Rate 68 03/06/20 08:58 Respiratory Rate 18 03/06/20 08:58 Blood Pressure 128/68 03/06/20 08:58 O2 Sat by Pulse Oximetry (%) 95 03/06/20 08:58 Findings/Remarks: This is a 70 y/o male with a PMHx of DM, Diabetic Foot Ulcers, HTN, HLD, CAD s/p CABG, last admission 01/30-02/05 for Diabetic Foot Ulcer- non-healing. Who presents to the ED sent in by Dr Ocampo for admission for left hallux amputation. Patient is [place] speaking [employer] line used name- Jayde, #[id number]. 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 Patient reports receiving antibiotics over several weeks for his left great toe. He reports having some yellow drainage from the toe. He denies fever, chills, or pain. Patient denies SOB, dizziness, HAWK, CP, palpitations, AP, N/V/D, constipation, dysuria. Patient denies sick contacts or recent travel. Labs: CBC, BMP 03/05/20 06:59 03/06/20 06:50 Discharge Summary Problems reviewed: Yes Reason For Visit: ULCER OF FOOT DUE TO SECONDARY DIABERTES MELLITUS Current Active Problems Afib (Acute) Diabetic foot ulcer (Acute) Encounter for screening laboratory testing for COVID-19 virus (Acute) Condition: Guarded - Instructions - Home Medications Comprehensive Discharge Medication List: Ambulatory Orders Amlodipine Besylate [Norvasc -] 10 mg PO DAILY tablet 12/29/17 Clopidogrel Bisulfate [Plavix] 75 mg PO DAILY 01/31/20 Insulin Glargine,Hum.rec.anlog [Lantus] 20 unit SQ HS 01/31/20 Metoprolol Tartrate 50 mg PO BID 01/31/20 Potassium Chloride 10 meq PO DAILY 01/31/20 Ertapenem Sodium [Invanz -] 1 gm IVPB DAILY #37 vial 02/06/20 Insulin Lispro [Humalog Kwikpen U-100] See Protocol SQ TID #1 each 02/06/20 Lisinopril [Prinivil] 5 mg PO DAILY #30 tablet 02/06/20
--- NOTE | 2020-03-06 13:16 | PN ---
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: s: no cp sob palps dizzy Current Medications Generic Name Dose Route Start Last Admin Trade Name Chapo PRN Reason Stop Dose Admin Amlodipine Besylate 10 mg 03/03/20 10:00 03/06/20 10:25 Norvasc - PO 10 mg DAILY PRATIK Administration Heparin Sodium (Porcine) 5,000 unit 03/05/20 11:45 03/05/20 12:12 Heparin - SQ 5,000 unit BID PRATIK Administration Piperacillin Sod/Tazobactam 50 mls @ 100 mls/hr 03/04/20 10:00 03/06/20 09:09 Sod 3.375 gm/ Dextrose IVPB 100 mls/hr Q8H-IV PRATIK Administration Protocol Sodium Chloride 1,000 mls @ 75 mls/hr 03/05/20 13:45 03/06/20 05:53 1/2 Normal Saline IV 75 mls/hr ASDIR PRATIK Administration Insulin Aspart 1 vial 03/03/20 11:00 03/06/20 11:53 Novolog Vial Sliding Scale - SQ Not Given ACHS PRATIK Protocol Lisinopril 5 mg 03/03/20 10:00 03/06/20 10:25 Prinivil PO 5 mg DAILY PRATIK Administration Metoprolol Tartrate 50 mg 03/03/20 10:00 03/06/20 10:25 Lopressor - PO 50 mg BID PRATIK Administration Vital Signs Period Temp Pulse Resp BP Sys/Mcconnell Pulse Ox Last 24 Hr 97.7 F-98.6 F 65-69 18-18 121-148/59-75 93-98 Constitutional: Yes: No Distress, Calm Neck: Yes: Supple, Trachea Midline Respiratory: Yes: CTA Bilaterally Gastrointestinal: Yes: Soft (nt) Cardiovascular: Yes: Regular Rate and Rhythm JVD: No Carotid Bruit: No PMI: Non-Displaced Heart Sounds: Yes: S1, S2 (rrr, 2/6 PAM RSB) Extremities: Yes: Other (left great toe bandaged) Edema: No Neurological: Yes: Alert, Oriented NSR, old inferior infarct, no acute ST changes Prior Cardiac Procedures: CABG, PTCA with Stent Ejection Fraction %: LVEF > or = 40 % Imaging - Results EKG: Image Reviewed Assessment/Plan DATA: echo 08/2019: tds, lvef 40, nl rv, mild-mod mr, mod tr, mod as IMP: Non healing LLE toe ulcer, osteo CAD s/p CABG 2016 with recent cath at [facility]-no intervention per patient. DM REC: Presently, there are no cardiac contraindications to left toe amputation being done in an effort to control infection, prevent worsening and to treat refractory wound/osteo. He has no active anginal symptoms, blood pressure is well controlled and he is in normal sinus rhythm with no acute ECG changes. The ejection fraction is moderately reduced but he appears well compensated, w ith no clinical signs/symptoms of CHF. Aortic stenosis is moderate, and should not pose any hemodynamically significant issues intraoperatively for a relatively short procedure with no significant flu id shifts. Recommend usual BP medications, including metoprolol be taken on the morning of surgery with a small sip of water. Plan to hold plavix for 5 days prior to procedure per surgery
--- NOTE | 2020-03-06 16:39 | PN ---
Progress Note, Physician History of Present Illness: Pt seen and examined at bedside. He is awake and alert. He denies fevers or chills. - Current Medication List Current Medications: Active Medications Amlodipine Besylate (Norvasc -) 10 mg PO DAILY [facility] Last Admin: 03/06/20 10:25 Dose: 10 mg Documented by: Heparin Sodium (Porcine) (Heparin -) 5,000 unit SQ BID [facility] Last Admin: 03/05/20 12:12 Dose: 5,000 unit Documented by: Piperacillin Sod/Tazobactam (Sod 3.375 gm/ Dextrose) 50 mls @ 100 mls/hr IVPB Q8H-IV [facility]; Protocol Last Admin: 03/06/20 09:09 Dose: 100 mls/hr Documented by: Sodium Chloride (1/2 Normal Saline) 1,000 mls @ 75 mls/hr IV ASDIR [facility] Last Admin: 03/06/20 05:53 Dose: 75 mls/hr Documented by: Insulin Aspart (Novolog Vial Sliding Scale -) 1 vial SQ ACHS [facility]; Protocol Last Admin: 03/06/20 11:53 Dose: Not Given Documented by: Lisinopril (Prinivil) 5 mg PO DAILY [facility] Last Admin: 03/06/20 10:25 Dose: 5 mg Documented by: Metoprolol Tartrate (Lopressor -) 50 mg PO BID [facility] Last Admin: 03/06/20 10:25 Dose: 50 mg Documented by: - Objective Vital Signs: Vital Signs Temperature 97.9 F 03/06/20 14:00 Pulse Rate 60 03/06/20 14:00 Respiratory Rate 18 03/06/20 14:00 Blood Pressure 139/66 03/06/20 14:00 O2 Sat by Pulse Oximetry (%) 97 03/06/20 14:00 Constitutional: Yes: Calm Eyes: Yes: Conjunctiva Clear HENT: Yes: Atraumatic Neck: Yes: Supple Cardiovascular: Yes: S1, S2 Respiratory: Yes: CTA Bilaterally Gastrointestinal: Yes: Soft Genitourinary: Yes: WNL Musculoskeletal: Yes: WNL Edema: No Neurological: Yes: Oriented Psychiatric: Yes: Oriented Labs: CBC, BMP 03/05/20 06:59 03/06/20 06:50 INR, PTT INR 0.97 (0.83-1.09) 03/02/20 16:40 Problem List - Problems (1) Afib Code(s): I48.91 - UNSPECIFIED ATRIAL FIBRILLATION (2) Diabetic foot ulcer Code(s): E11.621 - TYPE 2 DIABETES MELLITUS WITH FOOT ULCER; L97.509 - NON- PRESSURE CHRONIC ULCER OTH PRT UNSP FOOT W UNSP SEVERITY Qualifiers: Diabetic foot ulcer location: toe Diabetes mellitus type: type 2 Laterality: left Non-pressure ulcer stage: with fat layer exposed Qualified Code(s): E11.621 - Type 2 diabetes mellitus with foot ulcer; L97.522 - Non- pressure chronic ulcer of other part of left foot with fat layer exposed (3) Renal insufficiency Code(s): N28.9 - DISORDER OF KIDNEY AND URETER, UNSPECIFIED Assessment/Plan Current Medications Generic Name Dose Route Start Last Admin Trade Name Freq PRN Reason Stop Dose Admin Amlodipine Besylate 10 mg 03/03/20 10:00 03/06/20 10:25 Norvasc - PO 10 mg DAILY PRATIK Administration Heparin Sodium (Porcine) 5,000 unit 03/05/20 11:45 03/05/20 12:12 Heparin - SQ 5,000 unit BID PRATIK Administration Piperacillin Sod/Tazobactam 50 mls @ 100 mls/hr 03/04/20 10:00 03/06/20 09:09 Sod 3.375 gm/ Dextrose IVPB 100 mls/hr Q8H-IV PRATIK Administration Protocol Sodium Chloride 1,000 mls @ 75 mls/hr 03/05/20 13:45 03/06/20 05:53 1/2 Normal Saline IV 75 mls/hr ASDIR PRATIK Administration Insulin Aspart 1 vial 03/03/20 11:00 03/06/20 11:53 Novolog Vial Sliding Scale - SQ Not Given ACHS PRATIK Protocol Lisinopril 5 mg 03/03/20 10:00 03/06/20 10:25 Prinivil PO 5 mg DAILY PRATIK Administration Metoprolol Tartrate 50 mg 03/03/20 10:00 03/06/20 10:25 Lopressor - PO 50 mg BID PRATIK Administration Impression 1. CKD 2. DM 3. HTN 4. DFU 5. HLD 6. BPH 7. osteo 8. proteinuria 9. FRANKI Plan - cont to monitor renal function - will need outpt follow up - vascular follow up - monitor bp - renal dose meds
--- NOTE | 2020-03-06 17:36 | PN ---
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: Vascular Surgery Pt seen and examined. Left great toe ulcer. Dry. Pt for amputation by podiatry. Pt is a diabetic. Pt does not have a palbele pulse. US done one year ago showed a 75% stenosis in left mid sfa. Pt will need CO2 angiogram to bring more blood flow down to foot, to save the toe. Can do as outpt, will need to check if pt is eligible tomorrow morning. Ramiro Roy dO
--- NOTE | 2020-03-06 20:55 | PN ---
Progress Note, Physician Chief Complaint: Left foot diabetic wound History of Present Illness: NAD seen by podiatry Needs to be off plavix for 5 days prior to toe amputation Also seen by Vascular surgery Needs CO2 angiogram prior to surgery due to inability to do CTA 2/2 to CKD pt would like to save the toe On ertapenem. - Current Medication List Current Medications: Active Medications Amlodipine Besylate (Norvasc -) 10 mg PO DAILY [facility] Last Admin: 03/06/20 10:25 Dose: 10 mg Documented by: Heparin Sodium (Porcine) (Heparin -) 5,000 unit SQ BID [facility] Last Admin: 03/05/20 12:12 Dose: 5,000 unit Documented by: Piperacillin Sod/Tazobactam (Sod 3.375 gm/ Dextrose) 50 mls @ 100 mls/hr IVPB Q8H-IV [facility]; Protocol Last Admin: 03/06/20 18:26 Dose: 100 mls/hr Documented by: Sodium Chloride (1/2 Normal Saline) 1,000 mls @ 75 mls/hr IV ASDIR [facility] Last Admin: 03/06/20 18:25 Dose: Not Given Documented by: Insulin Aspart (Novolog Vial Sliding Scale -) 1 vial SQ ACHS [facility]; Protocol Last Admin: 03/06/20 18:25 Dose: 4 units Documented by: Lisinopril (Prinivil) 5 mg PO DAILY [facility] Last Admin: 03/06/20 10:25 Dose: 5 mg Documented by: Metoprolol Tartrate (Lopressor -) 50 mg PO BID [facility] Last Admin: 03/06/20 10:25 Dose: 50 mg Documented by: - Objective Vital Signs: Vital Signs Temperature 98.0 F 03/06/20 18:00 Pulse Rate 68 03/06/20 18:00 Respiratory Rate 18 03/06/20 18:00 Blood Pressure 156/89 03/06/20 18:00 O2 Sat by Pulse Oximetry (%) 98 03/06/20 18:00 Constitutional: Yes: Well Nourished, No Distress, Calm Cardiovascular: Yes: Regular Rate and Rhythm Respiratory: Yes: Regular, CTA Bilaterally Gastrointestinal: Yes: Normal Bowel Sounds, Soft Genitourinary: Yes: WNL Musculoskeletal: Yes: WNL Extremities: Yes: WNL Edema: No Peripheral Pulses WNL: No Peripheral Pulses: Left Doralis Pedis: 0 Integumentary: Yes: Other (Left toe wound without any drainage or necrotic tissue) Wound/Incision: Yes: Dressing Dry and Intact Neurological: Yes: Alert, Oriented Psychiatric: Yes: Alert, Oriented Labs: CBC, BMP 03/05/20 06:59 03/06/20 06:50 INR, PTT INR 0.97 (0.83-1.09) 03/02/20 16:40 Problem List - Problems (1) Diabetic foot ulcer Assessment/Plan: -Has a PICC line -Continue Ertapenem -ID on board -Afebrile -Podiatry on board -Seen by Vascular surgery -Hold plavix for now -Determine in AM coverage for outpatient CO2 Angiogram, otherwise, will do it inpatient Problems reviewed: Yes Code(s): E11.621 - TYPE 2 DIABETES MELLITUS WITH FOOT ULCER; L97.509 - NON- PRESSURE CHRONIC ULCER OTH PRT UNSP FOOT W UNSP SEVERITY Qualifiers: Diabetic foot ulcer location: toe Diabetes mellitus type: type 2 Laterali ty: left Non-pressure ulcer stage: with fat layer exposed Qualified Code(s): E11.621 - Type 2 diabetes mellitus with foot ulcer; L97.522 - Non-pressure chronic ulcer of other part of left foot with fat layer exposed (2) Acute kidney injury superimposed on CKD Assessment/Plan: -Seen by Nephrology -Cr at baseline -Monitor trend Problems reviewed: Yes Code(s): N17.9 - ACUTE KIDNEY FAILURE, UNSPECIFIED; N18.9 - CHRONIC KIDNEY DISEASE, UNSPECIFIED (3) Diabetes Assessment/Plan: -Last A1c at 10.8 on 02/04 -BGM AC HS -Levemir 10 U BID -ISS -Diabetic sodium diet Problems reviewed: Yes Code(s): E11.9 - TYPE 2 DIABETES MELLITUS WITHOUT COMPLICATIONS (4) CAD (coronary artery disease) Assessment/Plan: -Hold plavix for now, resume if surgical intervention is cancelled -Continue BB + Statin Problems reviewed: Yes Code(s): I25.10 - ATHSCL HEART DISEASE OF [place] CORONARY ARTERY W/O ANG PCTRS Assessment/Plan See problem list DVT ppx
[2020-03-06] MEDS ORDERED: ACETAMINOPHEN 325 MG TABLET (FP) PO PRN (21:01)
[2020-03-06] MEDS ORDERED: INSULIN (NOVOLOG) ASPART 100 UNITS/ML 10ML VIAL ONE (21:44)
[2020-03-06] MEDS: INSULIN (LEVEMIR) 100 UNITS/ML UNITS SQ SCH (21:50)
--- NOTE | 2020-03-06 23:11 | PN ---
Progress Note, Physician - Current Medication List Current Medications: Active Medications Acetaminophen (Tylenol -) 650 mg PO Q4H PRN PRN Reason: PAIN Amlodipine Besylate (Norvasc -) 10 mg PO DAILY [facility] Last Admin: 03/06/20 10:25 Dose: 10 mg Documented by: Famotidine (Pepcid -) 20 mg PO DAILY [facility] Heparin Sodium (Porcine) (Heparin -) 5,000 unit SQ BID [facility] Last Admin: 03/05/20 12:12 Dose: 5,000 unit Documented by: Piperacillin Sod/Tazobactam (Sod 3.375 gm/ Dextrose) 50 mls @ 100 mls/hr IVPB Q8H-IV [facility]; Protocol Last Admin: 03/06/20 18:26 Dose: 100 mls/hr Documented by: Sodium Chloride (1/2 Normal Saline) 1,000 mls @ 75 mls/hr IV ASDIR [facility] Last Admin: 03/06/20 21:49 Dose: 75 mls/hr Documented by: Insulin Aspart (Novolog Vial Sliding Scale -) 1 vial SQ ACHS [facility]; Protocol Last Admin: 03/06/20 21:51 Dose: 8 units Documented by: Insulin Detemir (Levemir Vial) 10 units SQ 0700,2200 [facility] Last Admin: 03/06/20 21:50 Dose: 10 units Documented by: Lisinopril (Prinivil) 5 mg PO DAILY [facility] Last Admin: 03/06/20 10:25 Dose: 5 mg Documented by: Metoprolol Tartrate (Lopressor -) 50 mg PO BID [facility] Last Admin: 03/06/20 21:50 Dose: 50 mg Documented by: - Objective Vital Signs: Vital Signs Temperature 98.0 F 03/06/20 18:00 Pulse Rate 68 03/06/20 18:00 Respiratory Rate 18 03/06/20 18:00 Blood Pressure 156/89 03/06/20 18:00 O2 Sat by Pulse Oximetry (%) 98 03/06/20 18:00 Labs: CBC, BMP 03/05/20 06:59 03/06/20 06:50 INR, PTT INR 0.97 (0.83-1.09) 03/02/20 16:40
[2020-03-07] MEDS ORDERED: DEXTROSE 5%-WATER - 50 ML IVPB ONE ×2 (01:23→09:43)
[2020-03-07] MEDS ORDERED: PIPERACILLIN/TAZOBACTAM 3.375 GM VIAL IVPB ONE ×2 (01:23→09:43)
[2020-03-07] MEDS: PIPERACILLIN/TAZOB 3.375 GM 3.375 GM in DEXTROSE 5%-WATER - 50 ML IVPB SCH ×2 (02:15→10:00)
[2020-03-07] MEDS: INSULIN (LEVEMIR) 100 UNITS/ML UNITS SQ SCH (06:39)
[2020-03-07] MEDS: INSULIN SLIDING SCALE (NOVOLOG) 1 VIAL SQ SCH ×2 (06:41→12:27)
[2020-03-07] MEDS ORDERED: INSULIN (NOVOLOG) ASPART 100 UNITS/ML 10ML VIAL ONE ×2 (06:53→11:05)
--- NOTE | 2020-03-07 09:28 | SPA.PREOP ---
- PRE-OP NOTE Dx: left great toe chronic OM, PAD Planned Procedure: CO2 angiogram possible angioplasty Surgeon: Kirill Last Vital Signs Temp Pulse Resp BP Pulse Ox 98 F 66 18 123/58 L 93 L 03/07/20 06:00 03/07/20 06:00 03/07/20 06:00 03/07/20 06:00 03/07/20 06:00 Lab Results WBC 8.5 K/mm3 (4.0-10.0) 03/05/20 06:59 RBC 3.59 M/mm3 (4.00-5.60) L 03/05/20 06:59 Hgb 10.0 GM/dL (11.7-16.9) L 03/05/20 06:59 Hct 29.9 % (35.4-49) L 03/05/20 06:59 MCV 83.3 fl (80-96) 03/05/20 06:59 MCHC 33.5 g/dl (32.0-35.9) 03/05/20 06:59 RDW 16.2 % (11.9-15.9) H 03/05/20 06:59 Plt Count 211 K/MM3 (134-434) 03/05/20 06:59 INR 0.97 (0.83-1.09) 03/02/20 16:40 Sodium 137 mmol/L (136-145) 03/06/20 06:50 Potassium 4.8 mmol/L (3.5-5.1) 03/06/20 06:50 Chloride 106 mmol/L (98-107) 03/06/20 06:50 Carbon Dioxide 25 mmol/L (21-32) 03/06/20 06:50 Anion Gap 7 MMOL/L (8-16) L 03/06/20 06:50 BUN 36.2 mg/dL (7-18) H 03/06/20 06:50 Creatinine 2.0 mg/dL (0.55-1.3) H 03/06/20 06:50 Random Glucose 232 mg/dL (74-106) H 03/06/20 06:50 Calcium 8.6 mg/dL (8.5-10.1) 03/06/20 06:50 Blood Type A POSITIVE 03/02/20 16:40 Antibody Screen Negative 03/02/20 16:40 - ASSESSMENT/PLAN Problem List - Problems (1) Diabetic foot ulcer Assessment/Plan: Plan for CO2 angiogram on 03/08/[address] Roy 1. Make NPO after midnight except po meds 2. GI/DVT PPX 3. Medical optimization / clearance 4. Consent to be obtained by surgeon after risks, benefits and alternatives discussed with patient and or Health Care Proxy. Code(s): E11.621 - TYPE 2 DIABETES MELLITUS WITH FOOT ULCER; L97.509 - NON- PRESSURE CHRONIC ULCER OTH PRT UNSP FOOT W UNSP SEVERITY Qualifiers: Diabetic foot ulcer location: toe Diabetes mellitus type: type 2 Laterality: left Non-pressure ulcer stage: with fat layer exposed Qualified Code(s): E11.621 - Type 2 diabetes mellitus with foot ulcer; L97.522 - Non- pressure chronic ulcer of other part of left foot with fat layer exposed
--- NOTE | 2020-03-07 09:41 | DS ---
Physical Examination Vital Signs: Vital Signs Temperature 98 F 03/07/20 06:00 Pulse Rate 66 03/07/20 06:00 Respiratory Rate 18 03/07/20 06:00 Blood Pressure 123/58 L 03/07/20 06:00 O2 Sat by Pulse Oximetry (%) 93 L 03/07/20 06:00 Cardiovascular: Yes: Regular Rate and Rhythm Respiratory: Yes: Regular, CTA Bilaterally Gastrointestinal: Yes: Normal Bowel Sounds, Soft Edema: No Wound/Incision: Yes: Other (dry ulcer) Labs: CBC, BMP 03/05/20 06:59 03/06/20 06:50 Discharge Summary Problems reviewed: Yes Reason For Visit: ULCER OF FOOT DUE TO SECONDARY DIABERTES MELLITUS Current Active Problems Afib (Acute) Diabetic foot ulcer (Acute) Encounter for screening laboratory testing for COVID-19 virus (Acute) Hospital Course: - Problems (1) Diabetic foot ulcer Assessment/Plan: -Has a PICC line -Continue Ertapenem -ID on board -Afebrile -Podiatry on board -Seen by Vascular surgery -outpatient CO2 Angiogram on thursday discussed with vascular Code(s): E11.621 - TYPE 2 DIABETES MELLITUS WITH FOOT ULCER; L97.509 - NON-PRE SSURE CHRONIC ULCER OTH PRT UNSP FOOT W UNSP SEVERITY Qualifiers: Diabetic foot ulcer location: toe Diabetes mellitus type: type 2 Laterality: left Non-pressure ulcer stage: with fat layer exposed Qualified Code(s): E11.621 - Type 2 diabetes mellitus with foot ulcer; L97.522 - Non- pressure chronic ulcer of other part of left foot with fat layer exposed (2) Acute kidney injury superimposed on CKD Assessment/Plan: -Seen by Nephrology -Cr at baseline -Monitor trend Problems reviewed: Yes Code(s): N17.9 - ACUTE KIDNEY FAILURE, UNSPECIFIED; N18.9 - CHRONIC KIDNEY DISEASE, UNSPECIFIED (3) Diabetes Assessment/Plan: -Last A1c at 10.8 on 02/04 -BGM AC HS -Levemir 10 U BID -ISS -Diabetic sodium diet Problems reviewed: Yes Code(s): E11.9 - TYPE 2 DIABETES MELLITUS WITHOUT COMPLICATIONS (4) CAD (coronary artery disease) Assessment/Plan: -plavix -Continue BB + Statin Problems reviewed: Yes Code(s): I25.10 - ATHSCL HEART DISEASE OF [place] CORONARY ARTERY W/O ANG PCTRS Condition: Stable - Instructions Diet, Activity, Other Instructions: IV ABX INFUSION IN AM Referrals: Ramiro Roy DO [Staff Physician] - 03/09/20 Disposition: HOME - Home Medications Comprehensive Discharge Medication List: Ambulatory Orders Amlodipine Besylate [Norvasc -] 10 mg PO DAILY tablet 12/29/17 Clopidogrel Bisulfate [Plavix] 75 mg PO DAILY 01/31/20 Insulin Glargine,Hum.rec.anlog [Lantus] 20 unit SQ HS 01/31/20 Metoprolol Tartrate 50 mg PO BID 01/31/20 Potassium Chloride 10 meq PO DAILY 01/31/20 Ertapenem Sodium [Invanz -] 1 gm IVPB DAILY #37 vial 02/06/20 Insulin Lispro [Humalog Kwikpen U-100] See Protocol SQ TID #1 each 02/06/20 Lisinopril [Prinivil] 5 mg PO DAILY #30 tablet 02/06/20 Acetaminophen [Tylenol .Regular Strength -] 650 mg PO Q4H PRN tablet 03/07/20 Famotidine [Pepcid -] 20 mg PO DAILY tablet 03/07/20
[2020-03-07] MEDS: METOPROLOL TARTRATE 50 MG TABLET (FP) PO SCH (10:00)
[2020-03-07] MEDS: amLODIPine BESYLATE 10 MG TABLET (FP) PO SCH (10:00)
[2020-03-07] MEDS ORDERED: FAMOTIDINE 20 MG TABLET PO SCH (10:00)
[2020-03-07] MEDS: LISINOPRIL 5 MG TABLET (FP) PO SCH (10:00)
[2020-03-07] MEDS: HEPARIN NA (PORCINE) 5,000 UNITS/ML 1ML VIAL SQ SCH (10:01)
[2020-03-07 10:18] VITALS: TEMP 98.7
--- NOTE | 2020-03-07 11:55 | PN ---
Progress Note, Physician History of Present Illness: Pt seen and examined at bedside. He is awake and alert. He denies shortness of breath. - Current Medication List Current Medications: Active Medications Acetaminophen (Tylenol -) 650 mg PO Q4H PRN PRN Reason: PAIN Amlodipine Besylate (Norvasc -) 10 mg PO DAILY [facility] Last Admin: 03/07/20 10:00 Dose: 10 mg Documented by: Famotidine (Pepcid -) 20 mg PO DAILY [facility] Last Admin: 03/07/20 10:00 Dose: 20 mg Documented by: Heparin Sodium (Porcine) (Heparin -) 5,000 unit SQ BID [facility] Last Admin: 03/07/20 10:01 Dose: 5,000 unit Documented by: Piperacillin Sod/Tazobactam (Sod 3.375 gm/ Dextrose) 50 mls @ 100 mls/hr IVPB Q8H-IV [facility]; Protocol Last Admin: 03/07/20 10:00 Dose: 100 mls/hr Documented by: Sodium Chloride (1/2 Normal Saline) 1,000 mls @ 75 mls/hr IV ASDIR [facility] Last Admin: 03/06/20 21:49 Dose: 75 mls/hr Documented by: Insulin Aspart (Novolog Vial Sliding Scale -) 1 vial SQ ACHS [facility]; Protocol Last Admin: 03/07/20 06:41 Dose: Not Given Documented by: Insulin Detemir (Levemir Vial) 10 units SQ 0700,2200 [facility] Last Admin: 03/07/20 06:39 Dose: 10 units Documented by: Lisinopril (Prinivil) 5 mg PO DAILY [facility] Last Admin: 03/07/20 10:00 Dose: 5 mg Documented by: Metoprolol Tartrate (Lopressor -) 50 mg PO BID [facility] Last Admin: 03/07/20 10:00 Dose: 50 mg Documented by: - Objective Vital Signs: Vital Signs Temperature 98.7 F 03/07/20 10:00 Pulse Rate 142 H 03/07/20 10:00 Respiratory Rate 18 03/07/20 10:00 Blood Pressure 142/69 03/07/20 10:00 O2 Sat by Pulse Oximetry (%) 95 03/07/20 10:00 Constitutional: Yes: Calm Eyes: Yes: Conjunctiva Clear HENT: Yes: Atraumatic Neck: Yes: Supple Cardiovascular: Yes: S1, S2 Respiratory: Yes: CTA Bilaterally Gastrointestinal: Yes: Normal Bowel Sounds, Soft Genitourinary: Yes: WNL Musculoskeletal: Yes: WNL Edema: No Wound/Incision: Yes: Dressing Dry and Intact Neurological: Yes: Oriented Psychiatric: Yes: Oriented Labs: CBC, BMP 03/05/20 06:59 03/06/20 06:50 INR, PTT INR 0.97 (0.83-1.09) 03/02/20 16:40 Problem List - Problems (1) Afib Code(s): I48.91 - UNSPECIFIED ATRIAL FIBRILLATION (2) Diabetic foot ulcer Code(s): E11.621 - TYPE 2 DIABETES MELLITUS WITH FOOT ULCER; L97.509 - NON- PRESSURE CHRONIC ULCER OTH PRT UNSP FOOT W UNSP SEVERITY Qualifiers: Diabetic foot ulcer location: toe Diabetes mellitus type: type 2 Laterality: left Non-pressure ulcer stage: with fat layer exposed Qualified Code(s): E11.621 - Type 2 diabetes mellitus with foot ulcer; L97.522 - Non- pressure chronic ulcer of other part of left foot with fat layer exposed (3) Renal insufficiency Code(s): N28.9 - DISORDER OF KIDNEY AND URETER, UNSPECIFIED Assessment/Plan Current Medications Generic Name Dose Route Start Last Admin Trade Name Freq PRN Reason Stop Dose Admin Acetaminophen 650 mg 03/06/20 21:01 Tylenol - PO Q4H PRN PAIN Amlodipine Besylate 10 mg 03/03/20 10:00 03/07/20 10:00 Norvasc - PO 10 mg DAILY PRATIK Administration Famotidine 20 mg 03/07/20 10:00 03/07/20 10:00 Pepcid - PO 20 mg DAILY PRATIK Administration Heparin Sodium (Porcine) 5,000 unit 03/05/20 11:45 03/07/20 10:01 Heparin - SQ 5,000 unit BID PRATIK Administration Piperacillin Sod/Tazobactam 50 mls @ 100 mls/hr 03/04/20 10:00 03/07/20 10:00 Sod 3.375 gm/ Dextrose IVPB 100 mls/hr Q8H-IV PRATIK Administration Protocol Sodium Chloride 1,000 mls @ 75 mls/hr 03/05/20 13:45 03/06/20 21:49 1/2 Normal Saline IV 75 mls/hr ASDIR PRATIK Administration Insulin Aspart 1 vial 03/03/20 11:00 03/07/20 06:41 Novolog Vial Sliding Scale - SQ Not Given ACHS [facility] Protocol Insulin Detemir 10 units 03/06/20 22:00 03/07/20 06:39 Levemir Vial SQ 10 units 0700,2200 PRATIK Administration Lisinopril 5 mg 03/03/20 10:00 03/07/20 10:00 Prinivil PO 5 mg DAILY PRATIK Administration Metoprolol Tartrate 50 mg 03/03/20 10:00 03/07/20 10:00 Lopressor - PO 50 mg BID PRATIK Administration Impression 1. CKD 2. DM 3. HTN 4. DFU 5. HLD 6. BPH 7. osteo 8. proteinuria 9. FRANKI Plan - check bmp in am - pt getting co2 angio, vascular input appreciated - cont fluids - cont bp meds - avoid nsaids - avoid hypotension in OR
--- NOTE | 2020-03-07 12:53 | PN ---
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: s: no cp sob palps dizzy Current Medications Generic Name Dose Route Start Last Admin Trade Name Freq PRN Reason Stop Dose Admin Acetaminophen 650 mg 03/06/20 21:01 Tylenol - PO Q4H PRN PAIN Amlodipine Besylate 10 mg 03/03/20 10:00 03/07/20 10:00 Norvasc - PO 10 mg DAILY PRATIK Administration Famotidine 20 mg 03/07/20 10:00 03/07/20 10:00 Pepcid - PO 20 mg DAILY PRATIK Administration Heparin Sodium (Porcine) 5,000 unit 03/05/20 11:45 03/07/20 10:01 Heparin - SQ 5,000 unit BID PRATIK Administration Piperacillin Sod/Tazobactam 50 mls @ 100 mls/hr 03/04/20 10:00 03/07/20 10:00 Sod 3.375 gm/ Dextrose IVPB 100 mls/hr Q8H-IV PRATIK Administration Protocol Sodium Chloride 1,000 mls @ 75 mls/hr 03/05/20 13:45 03/06/20 21:49 1/2 Normal Saline IV 75 mls/hr ASDIR PRATIK Administration Insulin Aspart 1 vial 03/03/20 11:00 03/07/20 12:27 Novolog Vial Sliding Scale - SQ 4 units ACHS PRATIK Administration Protocol Insulin Detemir 10 units 03/06/20 22:00 03/07/20 06:39 Levemir Vial SQ 10 units 0700,2200 PRATIK Administration Lisinopril 5 mg 03/03/20 10:00 03/07/20 10:00 Prinivil PO 5 mg DAILY PR[facility]IK Administration Metoprolol Tartrate 50 mg 03/03/20 10:00 03/07/20 10:00 Lopressor - PO 50 mg BID PRATIK Administration Vital Signs Period Temp Pulse Resp BP Sys/Mcconnell Pulse Ox Last 24 Hr 97.9 F-98.7 F 60-142 18-18 123-156/58-89 93-98 Constitutional: Yes: No Distress, Calm Neck: Yes: Supple, Trachea Midline Respiratory: Yes: CTA Bilaterally Gastrointestinal: Yes: Soft (nt) Cardiovascular: Yes: Regular Rate and Rhythm JVD: No Carotid Bruit: No PMI: Non-Displaced Heart Sounds: Yes: S1, S2 (rrr, 2/6 PAM RSB) Extremities: Yes: Other (left great toe bandaged) Edema: No Neurological: Yes: Alert, Oriented NSR, old inferior infarct, no acute ST changes Prior Cardiac Procedures: CABG, PTCA with Stent Ejection Fraction %: LVEF > or = 40 % Imaging - Results EKG: Image Reviewed Assessment/Plan DATA: echo 08/2019: tds, lvef 40, nl rv, mild-mod mr, mod tr, mod as IMP: Non healing LLE toe ulcer, osteo CAD s/p CABG 2015 with recent cath at [facility]-no intervention per patient. DM REC: No cardiac contraindications to left toe amputation or CO2 angio He has no active anginal symptoms, blood pressure is well controlled and he is in normal sinus rhythm with no acute ECG changes. The ejection fraction is moderately reduced but he appears well compensated, with no clinical signs/symptoms of CHF. Aortic stenosis is moderate, and should not pose any hemodynamically significant issues intraoperatively for a relatively short procedure with no significant fluid shifts. Recommend usual BP medications, including metoprolol be taken on the morning of surgery with a small sip of water. Plan to hold plavix for 5 days prior to procedure per surgery
[2020-03-07 15:21] VITALS: BP 135/70; PULSE 66
== END 2020-03-07 16:15 | disposition home or self-care (01) | DRG 638 ==
LOC: JER 15:15 → JERBED 16:23 → J5S 03-03 01:55
PROVIDERS: ADMIT Internal Medicine; ATTEND Family Medicine
DX: E11.621 Type 2 diabetes mellitus with foot ulcer (principal); M86.9 Osteomyelitis, unspecified; E11.69 Type 2 diabetes mellitus with other specified complication; L97.522 Non-pressure chronic ulcer of other part of left foot with fat layer exposed; N17.9 Acute kidney failure, unspecified; N18.9 Chronic kidney disease, unspecified; I10 Essential (primary) hypertension; I48.91 Unspecified atrial fibrillation; I25.10 Atherosclerotic heart disease of native coronary artery without angina pectoris; N40.0 Benign prostatic hyperplasia without lower urinary tract symptoms; E78.5 Hyperlipidemia, unspecified; K21.9 Gastro-esophageal reflux disease without esophagitis; E11.22 Type 2 diabetes mellitus with diabetic chronic kidney disease; Z95.1 Presence of aortocoronary bypass graft; E11.51 Type 2 diabetes mellitus with diabetic peripheral angiopathy without gangrene; D72.829 Elevated white blood cell count, unspecified
CPT/HCPCS: 36415; 71046-TC-FY; 73630-TC-LT; 73660-TC-LT-FY; 80053; 82962; 85025; 85027; 85610; 85651; 85730; 86140; 86850; 86900; 86901; 87040; 93005; 93010; 96365; 99285-25; G0463-25; J1644; U0003

== ENCOUNTER 2020-03-08 11:01 | Day surgery (SDC) | payer OTHER ==
[2020-03-08] MEDS ORDERED: ERTAPENEM SODIUM 1 GM in SODIUM CHLORIDE 50 ML IVPB ONE (11:15)
[2020-03-08] MEDS ORDERED: SODIUM CHLORIDE 50 ML IVPB ONE (12:08)
[2020-03-08] MEDS ORDERED: ERTAPENEM SODIUM 1 GM VIAL ONE (12:08)
[2020-03-08 14:59] VITALS: BP 141/86; PULSE 78; TEMP 98
== END 2020-03-08 13:00 | disposition home or self-care (01) ==
LOC: JINFUSION 11:01 → J7W 11:01 → JINFUSION 13:00
PROVIDERS: ATTEND Internal Medicine
DX: E11.621 Type 2 diabetes mellitus with foot ulcer (principal); L97.518 Non-pressure chronic ulcer of other part of right foot with other specified severity; M86.9 Osteomyelitis, unspecified; Z79.4 Long term (current) use of insulin; I10 Essential (primary) hypertension; E78.5 Hyperlipidemia, unspecified; I25.10 Atherosclerotic heart disease of native coronary artery without angina pectoris; Z95.1 Presence of aortocoronary bypass graft; Z53.8 Procedure and treatment not carried out for other reasons
CPT/HCPCS: 96365

== ENCOUNTER 2020-03-09 04:45 | Day surgery (SDC) | payer OTHER ==
[2020-03-09] MEDS ORDERED: ERTAPENEM SODIUM 1 GM in SODIUM CHLORIDE 50 ML IVPB ONE ×2 (11:45→12:15)
[2020-03-09] MEDS ORDERED: ERTAPENEM SODIUM 1 GM VIAL ONE ×2 (12:05→12:09)
[2020-03-09] MEDS ORDERED: SODIUM CHLORIDE 50 ML IVPB ONE (12:09)
[2020-03-09] MEDS ORDERED: LIDOCAINE HCL 1%, 10 MG/ML (20ML VIAL) ONE (13:45)
[2020-03-09] MEDS ORDERED: HEPARIN NA (PORCINE) 5,000 UNITS/ML 1ML VIAL ONE (13:45)
[2020-03-09 14:19] VITALS: BP 152/66; PULSE 84; TEMP 98.2
[2020-03-09 14:24] VITALS: BMI 23.9
== END 2020-03-09 16:02 | disposition home or self-care (01) ==
LOC: JASU-SURG 04:45 → JINFUSION 04:46 → J7W 11:33 → J2C 13:42 → JASU-SURG 16:02
PROVIDERS: ATTEND Surgery Vascular Surgery
PROC: 047 Lower Arteries, Dilation (ICD-10-PCS; principal; 2020-03-09)
PROC: 3E04329 Introduction of Other Anti-infective into Central Vein, Percutaneous Approach (ICD-10-PCS; 2020-03-09)
DX: E11.621 Type 2 diabetes mellitus with foot ulcer (principal); L97.518 Non-pressure chronic ulcer of other part of right foot with other specified severity; Z79.4 Long term (current) use of insulin; I10 Essential (primary) hypertension; E78.5 Hyperlipidemia, unspecified; I25.10 Atherosclerotic heart disease of native coronary artery without angina pectoris; Z95.1 Presence of aortocoronary bypass graft; Z53.8 Procedure and treatment not carried out for other reasons
CPT/HCPCS: 37224; 82962; 96365; J1644

== ENCOUNTER 2020-03-10 11:02 | Day surgery (SDC) | payer OTHER ==
[2020-03-10 11:25] VITALS: TEMP 98.2
[2020-03-10] MEDS ORDERED: ERTAPENEM SODIUM 1 GM VIAL ONE (11:27)
[2020-03-10] MEDS ORDERED: SODIUM CHLORIDE 50 ML IVPB ONE (11:27)
[2020-03-10] MEDS ORDERED: ERTAPENEM SODIUM 1 GM in SODIUM CHLORIDE 50 ML IVPB ONE (11:30)
[2020-03-10 12:18] VITALS: BP 137/63; PULSE 81
== END 2020-03-10 12:10 | disposition home or self-care (01) ==
LOC: JINFUSION 11:02 → J7W 11:03 → JINFUSION 12:10
PROVIDERS: ATTEND Internal Medicine
DX: E11.621 Type 2 diabetes mellitus with foot ulcer (principal); L97.518 Non-pressure chronic ulcer of other part of right foot with other specified severity; Z79.4 Long term (current) use of insulin; I10 Essential (primary) hypertension; E78.5 Hyperlipidemia, unspecified; I25.10 Atherosclerotic heart disease of native coronary artery without angina pectoris; Z95.1 Presence of aortocoronary bypass graft
CPT/HCPCS: 96365

== ENCOUNTER 2020-03-11 10:38 | Day surgery (SDC) | payer OTHER ==
[2020-03-11 10:57] VITALS: TEMP 98
[2020-03-11] MEDS ORDERED: ERTAPENEM SODIUM 1 GM VIAL ONE (10:59)
[2020-03-11] MEDS ORDERED: SODIUM CHLORIDE 50 ML IVPB ONE (10:59)
[2020-03-11] MEDS ORDERED: ERTAPENEM SODIUM 1 GM in SODIUM CHLORIDE 50 ML IVPB ONE (11:00)
[2020-03-11 11:45] VITALS: BP 134/53; PULSE 75
== END 2020-03-11 11:46 | disposition home or self-care (01) ==
LOC: J7W 10:38 → JINFUSION 10:38
PROVIDERS: ATTEND Internal Medicine
DX: E11.621 Type 2 diabetes mellitus with foot ulcer (principal); L97.518 Non-pressure chronic ulcer of other part of right foot with other specified severity; Z79.4 Long term (current) use of insulin; I10 Essential (primary) hypertension; E78.5 Hyperlipidemia, unspecified; I25.10 Atherosclerotic heart disease of native coronary artery without angina pectoris; Z95.1 Presence of aortocoronary bypass graft
CPT/HCPCS: 96365

== ENCOUNTER 2020-03-12 11:01 | Day surgery (SDC) | payer OTHER ==
[2020-03-12] MEDS ORDERED: ERTAPENEM SODIUM 1 GM in SODIUM CHLORIDE 50 ML IVPB ONE (11:30)
[2020-03-12 11:35] LABS: HEMATOCRIT 36.2 % (35.4-49); MCHC 33.3 g/dl (32.0-35.9); MEAN CELL VOLUME 84.2 fl (80-96); MEAN PLT VOLUME 9.3 fl (7.5-11.1); PLATELET COUNT 246 K/MM3 (134-434); RDW 17.5 % (11.9-15.9); WHITE BLOOD COUNT 8.5 K/mm3 (4.0-10.0)
[2020-03-12] MEDS ORDERED: ERTAPENEM SODIUM 1 GM VIAL ONE (11:42)
[2020-03-12 11:43] VITALS: TEMP 98.2
[2020-03-12] MEDS ORDERED: SODIUM CHLORIDE 50 ML IVPB ONE (11:43)
[2020-03-12 11:58] LABS: ALBUMIN 3.2 g/dl (3.4-5.0); BILIRUBIN,TOTAL 0.2 mg/dL (0.2-1); BLOOD UREA NITROGEN 37.4 mg/dL (7-18); CALCIUM 9.2 mg/dL (8.5-10.1); CREATININE 1.9 mg/dL (0.55-1.3); POTASSIUM 4.8 mmol/L (3.5-5.1); TOT PROT 8.1 g/dl (6.4-8.2)
[2020-03-12 12:15] VITALS: BP 131/66; PULSE 82
[2020-03-12 12:42] LABS: ERYTHROCYTE SEDIMENTATION RATE 92 mm/hr (0-20)
== END 2020-03-12 12:00 | disposition home or self-care (01) ==
LOC: JINFUSION 11:01 → J7W 11:01 → JINFUSION 12:00
PROVIDERS: ATTEND Internal Medicine
DX: E11.621 Type 2 diabetes mellitus with foot ulcer (principal); L97.518 Non-pressure chronic ulcer of other part of right foot with other specified severity; Z79.4 Long term (current) use of insulin; I10 Essential (primary) hypertension; E78.5 Hyperlipidemia, unspecified; Z95.1 Presence of aortocoronary bypass graft
CPT/HCPCS: 36415; 80053; 85027; 85651; 86140; 96365

== ENCOUNTER 2020-03-15 06:20 | Day surgery (SDC) | payer OTHER ==
[2020-03-15] MEDS ORDERED: ERTAPENEM SODIUM 1 GM in SODIUM CHLORIDE 50 ML IVPB ONE (11:45)
[2020-03-15] MEDS ORDERED: ERTAPENEM SODIUM 1 GM VIAL ONE (11:52)
[2020-03-15] MEDS ORDERED: SODIUM CHLORIDE 50 ML IVPB ONE (11:52)
[2020-03-15 12:20] VITALS: TEMP 98.9
[2020-03-15 12:25] VITALS: BP 142/70; PULSE 71
== END 2020-03-15 13:30 | disposition home or self-care (01) ==
LOC: JINFUSION 06:20 → J7W 11:02 → JINFUSION 13:30
PROVIDERS: ATTEND Internal Medicine
DX: E11.621 Type 2 diabetes mellitus with foot ulcer (principal); L97.518 Non-pressure chronic ulcer of other part of right foot with other specified severity; Z79.4 Long term (current) use of insulin; I10 Essential (primary) hypertension; E78.5 Hyperlipidemia, unspecified; Z95.1 Presence of aortocoronary bypass graft
CPT/HCPCS: 96365

== ENCOUNTER 2020-03-16 06:36 | Day surgery (SDC) | payer OTHER ==
[2020-03-16] MEDS ORDERED: ERTAPENEM SODIUM 1 GM VIAL ONE (11:30)
[2020-03-16] MEDS ORDERED: ERTAPENEM SODIUM 1 GM in SODIUM CHLORIDE 50 ML IVPB ONE (11:30)
[2020-03-16] MEDS ORDERED: SODIUM CHLORIDE 50 ML IVPB ONE (11:30)
[2020-03-16 12:13] VITALS: BP 141/71; PULSE 80; TEMP 98.1
== END 2020-03-16 14:37 | disposition home or self-care (01) ==
LOC: JINFUSION 06:36 → J7W 11:09 → JINFUSION 14:37
PROVIDERS: ATTEND Internal Medicine
DX: E11.621 Type 2 diabetes mellitus with foot ulcer (principal); L97.518 Non-pressure chronic ulcer of other part of right foot with other specified severity; Z79.4 Long term (current) use of insulin; I10 Essential (primary) hypertension; E78.5 Hyperlipidemia, unspecified; Z95.1 Presence of aortocoronary bypass graft
CPT/HCPCS: 96365

== ENCOUNTER 2020-03-17 07:06 | Day surgery (SDC) | payer OTHER ==
[2020-03-17] MEDS ORDERED: ERTAPENEM SODIUM 1 GM in SODIUM CHLORIDE 50 ML IVPB ONE (11:00)
[2020-03-17] MEDS ORDERED: SODIUM CHLORIDE 50 ML IVPB ONE (11:26)
[2020-03-17] MEDS ORDERED: ERTAPENEM SODIUM 1 GM VIAL ONE (11:26)
[2020-03-17 12:41] VITALS: BP 160/80; PULSE 91; TEMP 98.7
== END 2020-03-17 12:42 | disposition home or self-care (01) ==
LOC: JINFUSION 07:06 → J7W 11:04 → JINFUSION 12:42
PROVIDERS: ATTEND Internal Medicine
DX: E11.621 Type 2 diabetes mellitus with foot ulcer (principal); L97.518 Non-pressure chronic ulcer of other part of right foot with other specified severity; M86.9 Osteomyelitis, unspecified; Z79.4 Long term (current) use of insulin
CPT/HCPCS: 96365

== ENCOUNTER 2020-03-18 11:04 | Day surgery (SDC) | payer OTHER ==
[2020-03-18] MEDS ORDERED: ERTAPENEM SODIUM 1 GM in SODIUM CHLORIDE 50 ML IVPB ONE (11:45)
[2020-03-18] MEDS ORDERED: SODIUM CHLORIDE 50 ML IVPB ONE (11:54)
[2020-03-18] MEDS ORDERED: ERTAPENEM SODIUM 1 GM VIAL ONE (11:54)
[2020-03-18 12:18] VITALS: TEMP 98.2
[2020-03-18 12:31] VITALS: BP 147/77; PULSE 81
== END 2020-03-18 12:32 | disposition home or self-care (01) ==
LOC: JINFUSION 11:04 → J7W 11:05 → JINFUSION 12:32
PROVIDERS: ATTEND Internal Medicine
DX: E11.621 Type 2 diabetes mellitus with foot ulcer (principal); L97.518 Non-pressure chronic ulcer of other part of right foot with other specified severity; M86.9 Osteomyelitis, unspecified; Z79.4 Long term (current) use of insulin
CPT/HCPCS: 96365

== ENCOUNTER 2020-03-19 05:55 | Day surgery (SDC) | payer OTHER ==
[2020-03-19 12:00] VITALS: PULSE 84; TEMP 98.1
[2020-03-19 12:02] VITALS: BP 154/90
[2020-03-19] MEDS ORDERED: SODIUM CHLORIDE 50 ML IVPB ONE (12:10)
[2020-03-19] MEDS ORDERED: ERTAPENEM SODIUM 1 GM VIAL ONE (12:10)
[2020-03-19] MEDS ORDERED: ERTAPENEM SODIUM 1 GM in SODIUM CHLORIDE 50 ML IVPB ONE (12:15)
== END 2020-03-19 11:50 | disposition home or self-care (01) ==
LOC: JINFUSION 05:55 → J7W 11:55
PROVIDERS: ATTEND Internal Medicine
DX: E11.621 Type 2 diabetes mellitus with foot ulcer (principal); L97.518 Non-pressure chronic ulcer of other part of right foot with other specified severity; M86.9 Osteomyelitis, unspecified; Z79.4 Long term (current) use of insulin
CPT/HCPCS: 96365

== ENCOUNTER 2020-03-20 05:58 | Day surgery (SDC) | payer OTHER ==
--- OUTSIDE RECORDS SUMMARY | 2020-03-20 06:01 | XMS ---
:1950 [facility] Support Name Relationship Address Phone RE, RETIRED Unavailable Unavailable Unavailable RE Unavailable Unavailable Unavailable WCDSS Unavailable [address] [place] [address] NGHIA MARES [address] [facility] [phone] [place] [address] [address]GHIA MARES [address] [place] [address] [place] [address] Re-disclosure Warning The records that you are about to access may contain information from federally- assisted alcohol or drug abuse programs. If such information is present, then the following federally mandated warning applies: This information has been disclosed to you from records protected by federal confidentiality rules (42 CFR part 2). The federal rules prohibit you from making any further disclosure of this information unless further disclosure is expressly permitted by the written consent of the person to whom it pertains or as otherwise permitted by 42 CFR part 2. A general authorization for the release of medical or other information is NOT sufficient for this purpose. The Federal rules restrict any use of the information to criminally investigate or prosecute any alcohol or drug abuse patient.The records that you are about to access may contain highly sensitive health information, the redisclosure of which is protected by Article 27-F of the [facility] Public Health law. If you continue you may haveaccess to information: Regarding HIV / AIDS; Provided by facilities licensed or operated by the [facility] Office of Mental Health; or Provided by the [facility] Office for People With Developmental Disabilities. If such information is present, then the following [facility] mandated warning applies: This information has been disclosed to you from confidential records which are protected by state law. State law prohibits you from making any further disclosure of this information without the specific written consent of the person to whom it pertains, or as otherwise permitted by law. Any unauthorized further disclosure in violation of state law may result in a fine or senior living sentence or both. A general authorization for the release of medical or other information is NOT sufficient authorization for further disclosure. Insurance Providers Payer name Policy type Policy ID Covered Covered constitution party's Policy P mary / Coverage constitution party ID relationship to Stein Inf ormation type stein MEDICARE [id number] SP [id number] [facility] [id number] SP [id number] SELF PAY INSURANCE MEDICARE [id number] SP [id number] MEDICARE [id number] A [place] [id number] SP [id number] [facility] [id number] MEDICARE [id number] A Results ID Date Data Source [id number] 03/09/2020 01:45:00 PM EDT [facility] Name Value Range Interpretation Description Data Sup porting Code Source(s) Document(s ) SARS [facility] coronavirus 2 RNA This lab was ordered by [facility] and reported by [facility]. ID Date Data Source [id number] 03/07/2020 10:00:00 AM EDT [facility] Name Value Range Interpretation Description Data Sup porting Code Source(s) Document(s ) SARS [facility] coronavirus 2 RNA This lab was ordered by [facility] and reported by [facility]. ID Date Data Source [id number] 03/02/2020 07:45:00 PM EDT [facility] Name Value Range Interpretation Description Data Sup porting Code Source(s) Document(s ) SARS [facility] coronavirus 2 RNA This lab was ordered by [facility] and reported by [facility]. ID Date Data Source [id number] 01/31/2020 06:15:00 PM EDT [facility] Name Value Range Interpretation Description Data Sup porting Code Source(s) Document(s ) SARS [facility] coronavirus 2 RNA This lab was ordered by [facility] and reported by [facility]. Procedure
[2020-03-20] MEDS ORDERED: ERTAPENEM SODIUM 1 GM in SODIUM CHLORIDE 50 ML IVPB ONE ×2 (11:30→11:37)
[2020-03-20 11:44] VITALS: BP 135/75; PULSE 89; TEMP 98.3
[2020-03-20] MEDS ORDERED: SODIUM CHLORIDE 50 ML IVPB ONE (11:45)
[2020-03-20] MEDS ORDERED: ERTAPENEM SODIUM 1 GM VIAL ONE (11:45)
== END 2020-03-20 12:30 | disposition home or self-care (01) ==
LOC: JINFUSION 05:58 → J7W 11:22 → JINFUSION 12:30
PROVIDERS: ATTEND Internal Medicine
DX: E11.621 Type 2 diabetes mellitus with foot ulcer (principal); L97.518 Non-pressure chronic ulcer of other part of right foot with other specified severity; M86.9 Osteomyelitis, unspecified; Z79.4 Long term (current) use of insulin
CPT/HCPCS: 96365

== ENCOUNTER 2020-03-21 05:15 | Day surgery (SDC) | payer OTHER ==
--- OUTSIDE RECORDS SUMMARY | 2020-03-21 05:19 | XMS ---
:1950 Author [facility] Support Name Relationship Address Phone RE, RETIRED Unavailable Unavailable Unavailable RE Unavailable Unavailable Unavailable WCDSS Unavailable [address] [place] [address] NGHIA MARES [address] [facility] [place] [address] [address]GHIA MARES [address] [place] [address] [place] [address] Re-disclosure Warning The records that you are [...] is protected by Article 27-F of the [facility] Public Health law. If you continue you may haveaccess to information: Regarding HIV / AIDS; Provided by facilities licensed or operated by the [facility] Office of Mental Health; or Provided by the [facility] Office for People With Developmental Disabilities. If such information is present, then the following [facility] mandated warning applies: This information has been [...] law may result in a fine or nursing home sentence or both. A general authorization for the release of medical or other information is NOT sufficient authorization for further disclosure. Insurance Providers Payer name Policy type Policy ID Covered Covered libertarian's Policy P mary / Coverage libertarian ID relationship to Stein Inf ormation type stein MEDICARE [id number] SP [id number] R [id number] SP [id number] SELF PAY INSURANCE MEDICARE [id number] SP [id number] [id number] MEDICARE [id number] SP [id number] [facility] [id number] SP [id number] [facility] [id number] SP [id number] MEDICARE [id number] A Results ID Date Data Source [id number] 03/17/2020 10:50:00 AM EDT [facility] Name Value Range Interpretation Description Data Sup porting Code Source(s) Document(s ) SARS [facility] coronavirus 2 RNA This lab was ordered by [facility] and reported by [facility]. ID Date Data Source [id number] 03/09/2020 01:45:00 PM EDT [facility] Name Value Range Interpretation Description Data Sup porting Code Source(s) Document(s ) SARS [facility] coronavirus 2 RNA This lab was ordered by [facility] and reported by [facility]. ID Date Data Source [id number] 03/07/2020 10:00:00 AM EDT [facility] Name Value Range Interpretation Description Data Sup porting Code Source(s) Document(s ) SARS [facility] coronavirus 2 RNA This lab was ordered by [facility] and reported by [facility]. ID Date Data Source [id number] 03/02/2020 07:45:00 PM EDT [facility] Name Value Range Interpretation Description Data Sup porting Code Source(s) Document(s ) SARS [facility] coronavirus 2 RNA This lab was ordered by [facility] and reported by [facility]. ID Date Data Source [id number] 01/31/2020 06:15:00 PM EDT [facility] Name Value Range Interpretation Description Data Sup porting Code Source(s) Document(s ) SARS [facility] coronavirus 2 RNA This lab was ordered by [facility] and reported by [facility]. Procedure
[2020-03-21] MEDS ORDERED: ERTAPENEM SODIUM 1 GM in SODIUM CHLORIDE 50 ML IVPB ONE (10:45)
[2020-03-21 14:04] VITALS: BP 141/73; PULSE 71; TEMP 98.3
== END 2020-03-21 14:40 | disposition home or self-care (01) ==
LOC: JINFUSION 05:15 → J7W 10:46 → JINFUSION 14:40
PROVIDERS: ATTEND Internal Medicine
DX: E11.621 Type 2 diabetes mellitus with foot ulcer (principal); L97.518 Non-pressure chronic ulcer of other part of right foot with other specified severity; M86.9 Osteomyelitis, unspecified; Z79.4 Long term (current) use of insulin
CPT/HCPCS: 96365; 96413

== ENCOUNTER 2020-03-22 05:24 | Day surgery (SDC) | payer OTHER ==
[2020-03-21 16:38] VITALS: BMI 24.7
[2020-03-22] MEDS ORDERED: PROPOFOL 20 ML ONE ×4 (07:13→17:33)
[2020-03-22] MEDS ORDERED: MIDAZOLAM HCL 2 MG/2 ML SINGLE DOSE VIAL ONE ×2 (07:14→16:08)
[2020-03-22] MEDS ORDERED: HEPARIN NA (PORCINE) 5,000 UNITS/ML 1ML VIAL ONE ×2 (08:01→14:39)
[2020-03-22] MEDS ORDERED: LIDOCAINE HCL 1%, 10 MG/ML (20ML VIAL) ONE ×2 (08:01→14:38)
[2020-03-22] MEDS ORDERED: INSULIN (NOVOLOG) ASPART 100 UNITS/ML 10ML VIAL SQ ONE (08:49)
[2020-03-22] MEDS ORDERED: ONDANSETRON 4 MG/2 ML VIAL IVPUSH PRN (11:51)
[2020-03-22] MEDS ORDERED: SODIUM CHLORIDE 1,000 ML IV SCH (12:00)
[2020-03-22] MEDS ORDERED: LACTATED RINGERS SOLUTION 1,000 ML IV SCH (12:00)
--- NOTE | 2020-03-22 16:04 | HP ---
Admitting History and Physical - Admission Chief Complaint: left great toe ulcer, non healing. 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: Yes: Migraine Cardiovascular: Yes: CAD, HTN, Hyperlipdemia, MT Gastrointestinal: Yes: GERD Renal/: Yes: Renal Inusuff Endocrine: Yes: Diabetes Mellitus - Past Surgical History Past Surgical History: Yes: CABG, Stent - Smoking History Smoking history: Former smoker Have you smoked in the past 12 months: No If you are a former smoker, when did you quit?: 45 YEARS AGO - Alcohol/Substance Use Hx Alcohol Use: No History of Substance Use: reports: None - Social History ADL: Independent Occupation: [email or web address] History of Recent Travel: No Home Medications - Allergies Allergies/Adverse Reactions: Allergies Allergy/AdvReac Type Severity Reaction Status Date / Time No Known Allergies Allergy Verified 03/09/20 14:19 - Home Medications Home Medications: Ambulatory Orders Amlodipine Besylate [Norvasc -] 10 mg PO DAILY tablet 12/29/17 Clopidogrel Bisulfate [Plavix] 75 mg PO DAILY 01/31/20 Insulin Glargine,Hum.rec.anlog [Lantus] 20 unit SQ DAILY 01/31/20 Metoprolol Tartrate 50 mg PO BID 01/31/20 Potassium Chloride 10 meq PO DAILY 01/31/20 Lisinopril [Prinivil] 5 mg PO DAILY #30 tablet 02/06/20 Insulin Lispro [Humalog Kwikpen U-100] 0 units SQ TID 03/09/20 Losartan Potassium 100 mg PO DAILY 03/22/20 Rosuvastatin [Crestor -] 40 mg PO DAILY 03/22/20 Review of Systems - Review of Systems Constitutional: reports: No Symptoms Eyes: reports: No Symptoms HENT: reports: No Symptoms Neck: reports: No Symptoms Cardiovascular: reports: No Symptoms Respiratory: reports: No Symptoms Gastrointestinal: reports: No Symptoms Genitourinary: reports: No Symptoms Breasts: reports: No Symptoms Reported Musculoskeletal: reports: No Symptoms Integumentary: reports: No Symptoms Neurological: reports: No Symptoms Endocrine: reports: No Symptoms Hematology/Lymphatic: reports: No Symptoms Psychiatric: reports: No Symptoms Physical Examination Vital Signs: Vital Signs Temperature 98.2 F 03/22/20 08:10 Pulse Rate 108 H 03/22/20 08:10 Respiratory Rate 18 03/22/20 08:10 Blood Pressure 157/89 03/22/20 08:10 O2 Sat by Pulse Oximetry (%) 98 03/22/20 08:10 Constitutional: Yes: Well Nourished, No Distress, Calm Eyes: Yes: WNL, Conjunctiva Clear, EOM Intact HENT: Yes: WNL, Atraumatic, Normocephalic Neck: Yes: WNL, Supple, Trachea Midline Cardiovascular: Yes: WNL, Regular Rate and Rhythm Respiratory: Yes: WNL, Regular, CTA Bilaterally Gastrointestinal: Yes: WNL, Normal Bowel Sounds Musculoskeletal: Yes: WNL Extremities: Yes: WNL Edema: No Peripheral Pulses WNL: No (dopplerable) Integumentary: Yes: WNL Neurological: Yes: WNL, Alert, Oriented ...Motor Strength: WNL Psychiatric: Yes: WNL Problem List - Problems (1) Diabetic foot ulcer Assessment/Plan: for angiogram today Ramiro Roy DO Problems reviewed: Yes Code(s): E11.621 - TYPE 2 DIABETES MELLITUS WITH FOOT ULCER; L97.509 - NON- PRESSURE CHRONIC ULCER OTH PRT UNSP FOOT W UNSP SEVERITY Qualifiers:
[2020-03-22] MEDS ORDERED: ceFAZolin SODIUM 1 GM VIAL IVPB ONE (16:05)
[2020-03-22] MEDS ORDERED: LIDOCAINE HCL 1%, 10 MG/ML (20ML VIAL) PNB ONE (16:35)
--- NOTE | 2020-03-22 17:51 | OP ---
Operative Note - Note: Operative Date: 03/22/20 Pre-Operative Diagnosis: Left great toe ulcer Operation: CO2 Aortogram, LLE CO2 angiogram, anterior tibial artery atherectomy with angioplasty Findings: AT 80% stenosis x2 Post-Operative Diagnosis: Same as Pre-op Surgeon: Ramiro Roy Anesthesia: MAC Estimated Blood Loss (mls): 50 Operative Report Dictated: Yes
[2020-03-22] MEDS ORDERED: CLOPIDOGREL BISULFATE 75 MG TABLET (FP) PO ONE (17:54)
[2020-03-22] MEDS ORDERED: CLOPIDOGREL BISULFATE 75 MG TABLET (FP) ONE (18:13)
[2020-03-22 18:30] VITALS: TEMP 96.8
[2020-03-22 19:06] VITALS: BP 171/87; PULSE 95
--- NOTE | 2020-03-29 10:02 | OP ---
DATE OF OPERATION: 03/22/2020 PREOPERATIVE DIAGNOSIS: Left great toe ulcer. POSTOPERATIVE DIAGNOSIS: Left great toe ulcer. PROCEDURE: CO2 aortogram and CO2 left lower extremity angiogram, anterior tibial artery atherectomy with angioplasty. SURGEON: Ramiro Greer DO ANESTHESIA: General. ESTIMATED BLOOD LOSS: 50 mL INDICATION: Patient is a 70-year-old male who has a 3-month history of a left great toe gangrene with an ulcer there. It was decided that he would need an angiogram due to his elevated creatinine. We need to use CO2 to preserve his kidney function. Patient came into ambulatory surgery. Patient was cleared by Cardiology and Medicine. Patient was found to be COVID-19 negative. Patient was consented for the procedure understanding all the risks, benefits, and alternatives and understanding there were risks of bleeding, infection, clot formation and loss of limb. PROCEDURE IN DETAIL: We brought the patient to the operating room and laid the patient down on the operating table in the supine manner. The area of the right and left groin was prepped in a sterile surgical manner. We then injected 10 mL of lidocaine 1% over the right common femoral artery. We then took a micropuncture needle and punctured the right common femoral artery. Micropuncture wire was inserted. Micropuncture sheath was inserted and traditional 5-German sheath was inserted. We then placed an 0.035 floppy guidewire up in the aorta followed by an Omni flush catheter. We then shot a CO2 aortogram which showed the aorta and iliac arteries were without disease. We then took our 0.035 floppy guidewire and brought it up and over to the left common femoral artery. Omni flush catheter followed. We then shot a CO2 angiogram of the left lower extremity showing that the common femoral artery, profunda and the SFA were patent. We then went ahead and took our 0.035 stiff guidewire and brought it down to the popliteal artery and the Quick-Cross catheter was placed all the way down to the popliteal artery. We then shot a CO2 angiogram of the below-knee left lower extremity showing that the peroneal artery and the posterior tibial artery were patent, but the anterior artery was severely diseased. At this point, we took out our Quick-Cross catheter. We went ahead and placed a 6 x 45 cross over sheath and 5000 units of IV heparin were administered to the patient. We then placed the Quick-Cross catheter back in and successfully cannulated the anterior tibial artery and we were able to get the wire down to above the ankle. We then exchanged for a ViperWire wire. We then used a [employer] orbital atherectomy device and performed orbital atherectomy of the anterior tibial artery on low and medium. We then went ahead and used a 2.5 x 200 Ultraverse balloon and performed angioplasty to the entire anterior tibial artery. Completion angiogram now showed that the anterior artery was patent and there was good flow into the foot, giving off good branches to the peroneal artery and the posterior tibial artery. At this point, no more intervention was needed. We brought our sheath up and over. Starclose device was successfully deployed in the common femoral artery. Pressure was held for 5 minutes after which no bleeding and edges were dry. Dermabond was placed. The patient tolerated the procedure well with no complications. Patient transferred to PACU in stable condition and patient had a palpable DP pulse. RAMIRO GREER DO NP/[id number]
== END 2020-03-22 19:10 | disposition home or self-care (01) ==
LOC: JASU-SURG 05:24
PROVIDERS: ATTEND Surgery Vascular Surgery
PROC: 047Q3ZZ Dilation of Left Anterior Tibial Artery, Percutaneous Approach (ICD-10-PCS; principal; 2020-03-22 09:00)
DX: I12.0 Hypertensive chronic kidney disease with stage 5 chronic kidney disease or end stage renal disease (principal); E11.52 Type 2 diabetes mellitus with diabetic peripheral angiopathy with gangrene; E11.22 Type 2 diabetes mellitus with diabetic chronic kidney disease; I96 Gangrene, not elsewhere classified; N18.6 End stage renal disease; Z99.2 Dependence on renal dialysis
CPT/HCPCS: 37229; C1885; 76000-TC-FY; 82962; 94760; J1644

== ENCOUNTER 2020-03-23 06:00 | Day surgery (SDC) | payer OTHER ==
--- OUTSIDE RECORDS SUMMARY | 2020-03-23 06:08 | XMS ---
:1950 Author [facility] Support Name Relationship Address Phone RE, RETIRED Unavailable Unavailable Unavailable RE Unavailable Unavailable Unavailable WCDSS Unavailable [address] [place] [address] NGHIA MARES [address] [facility] [place] [address] [address]GHIA MARES [address] [place] [address] [place] [address] Re-disclosure Warning The records that you are [...] is protected by Article 27-F of the [facility] Public Health law. If you continue you may haveaccess to information: Regarding HIV / AIDS; Provided by facilities licensed or operated by the [facility] Office of Mental Health; or Provided by the [facility] Office for People With Developmental Disabilities. If such information is present, then the following [facility] mandated warning applies: This information has [...] law may result in a fine or halfway sentence or both. A general authorization for the release of medical or other information is NOT sufficient authorization for further disclosure. Insurance Providers Payer name Policy type Policy ID Covered Covered alliance party's Policy P amry / Coverage alliance party ID relationship to Stein Inf ormation type stein MEDICARE [id number] SP [id number] R [id number] SP [id number] SELF PAY INSURANCE MEDICARE [id number] SP [id number] MEDICARE [id number] SP [id number] [id number] [id number] [facility] [id number] SP [id number] MEDICARE [id number] A Results ID Date Data Source [id number] 03/17/2020 10:50:00 AM EDT [facility] Name Value Range Interpretation Description Data Sup porting Code Source(s) Document(s ) SARS [facility] coronavirus 2 RNA This lab was ordered by [facility] and reported by [facility]. ID Date Data Source [id number] 03/09/2020 01:45:00 PM EDT [facility] Name Value Range Interpretation Description Data Sup porting Code Source(s) Document(s ) SARS [facility] coronavirus 2 RNA This lab was ordered by [facility] and reported by [facility]. ID Date Data Source [id number] 03/07/2020 10:00:00 AM EDT [facility] Name Value Range Interpretation Description Data Sup porting Code Source(s) Document(s ) SARS [facility] coronavirus 2 RNA This lab was ordered by [facility] and reported by [facility]. ID Date Data Source [id number] 03/02/2020 07:45:00 PM EDT [facility] Name Value Range Interpretation Description Data Sup porting Code Source(s) Document(s ) SARS [facility] coronavirus 2 RNA This lab was ordered by [facility] and reported by [facility]. ID Date Data Source [id number] 01/31/2020 06:15:00 PM EDT [facility] Name Value Range Interpretation Description Data Sup porting Code Source(s) Document(s ) SARS [facility] coronavirus 2 RNA This lab was ordered by [facility] and reported by [facility]. Procedure
[2020-03-23] MEDS ORDERED: SODIUM CHLORIDE 50 ML IVPB ONE (11:45)
[2020-03-23] MEDS ORDERED: ERTAPENEM SODIUM 1 GM VIAL ONE (11:45)
[2020-03-23 11:55] VITALS: TEMP 98.2
[2020-03-23] MEDS ORDERED: ERTAPENEM SODIUM 1 GM in SODIUM CHLORIDE 50 ML IVPB ONE (12:00)
[2020-03-23 12:19] VITALS: BP 155/76; PULSE 93
== END 2020-03-23 12:21 | disposition home or self-care (01) ==
LOC: JINFUSION 06:00 → J7W 11:27 → JINFUSION 12:21
PROVIDERS: ATTEND Internal Medicine
DX: E11.621 Type 2 diabetes mellitus with foot ulcer (principal); L97.518 Non-pressure chronic ulcer of other part of right foot with other specified severity; M86.9 Osteomyelitis, unspecified; Z79.4 Long term (current) use of insulin
CPT/HCPCS: 96365

== ENCOUNTER 2020-03-24 11:04 | Day surgery (SDC) | payer OTHER ==
--- OUTSIDE RECORDS SUMMARY | 2020-03-24 11:27 | XMS ---
:1950 Author Organization [facility] Support Name Relationship Address Phone RE, RETIRED Unavailable Unavailable Unavailable RE Unavailable Unavailable Unavailable [facility] Unavailable [address] [place] [address] [address]GHIA MARES [address] [facility] [place] [address] NGHIA MARES [address] [facility] [place] [address] Re-disclosure Warning The records that you are [...] is protected by Article 27-F of the [facility] Public Health law. If you continue you may haveaccess to information: Regarding HIV / AIDS; Provided by facilities licensed or operated by the [facility] Office of Mental Health; or Provided by the [facility] Office for People With Developmental Disabilities. If such information is present, then the following [facility] mandated warning applies: This information has been [...] law may result in a fine or shelter sentence or both. A general authorization for the release of medical or other information is NOT sufficient authorization for further disclosure. Insurance Providers Payer name Policy type Policy ID Covered Covered libertarian's Policy P mary / Coverage libertarian ID relationship to [facility] ormation type stein MEDICARE [id number] SP [id number] [facility] [id number] SP [id number] SELF PAY INSURANCE MEDICARE [id number] SP [id number] MEDICARE [id number] SP [id number] [facility] [id number] SP [id number] [facility] [id number] SP [id number] MEDICARE [id number] A Results ID Date Data Source [id number] 03/17/2020 10:50:00 AM EDT [facility] Name Value Range Interpretation Description Data Sup porting Code Source(s) Document(s ) SARS [facility] coronavirus 2 RNA This lab was ordered by [facility] and reported by [facility]. ID Date Data Source [id number] 03/09/2020 01:45:00 PM EDT [facility] Name Value Range Interpretation Description Data Sup porting Code Source(s) Document(s ) SARS [facility] coronavirus 2 RNA This lab was ordered by [facility] and reported by [facility]. ID Date Data Source [id number] 03/07/2020 10:00:00 AM EDT [facility] Name Value Range Interpretation Description Data Sup porting Code Source(s) Document(s ) SARS [facility] coronavirus 2 RNA This lab was ordered by [facility] and reported by [facility]. ID Date Data Source [id number] 03/02/2020 07:45:00 PM EDT [facility] Name Value Range Interpretation Description Data Sup porting Code Source(s) Document(s ) SARS [facility] coronavirus 2 RNA This lab was ordered by [facility] and reported by [facility]. ID Date Data Source [id number] 01/31/2020 06:15:00 PM EDT [facility] Name Value Range Interpretation Description Data Sup porting Code Source(s) Document(s ) SARS [facility] coronavirus 2 RNA This lab was ordered by [facility] and reported by [facility]. Procedure
[2020-03-24] MEDS ORDERED: SODIUM CHLORIDE 100 ML IVPB ONE (11:29)
[2020-03-24] MEDS ORDERED: ERTAPENEM SODIUM 1 GM VIAL ONE (11:29)
[2020-03-24] MEDS ORDERED: ERTAPENEM SODIUM 1 GM in SODIUM CHLORIDE 100 ML IVPB ONE (11:30)
[2020-03-24 11:39] VITALS: TEMP 97.7
[2020-03-24 12:21] VITALS: BP 153/81; PULSE 62
[2020-03-25] MEDS ORDERED: ERTAPENEM SODIUM 1 GM in SODIUM CHLORIDE 100 ML IVPB ONE (10:00)
== END 2020-03-24 13:30 | disposition home or self-care (01) ==
LOC: J7W 11:04 → JINFUSION 11:04
PROVIDERS: ATTEND Internal Medicine
DX: E11.621 Type 2 diabetes mellitus with foot ulcer (principal); L97.518 Non-pressure chronic ulcer of other part of right foot with other specified severity; M86.9 Osteomyelitis, unspecified; Z79.4 Long term (current) use of insulin
CPT/HCPCS: 96365

== ENCOUNTER 2020-03-25 08:37 | Day surgery (SDC) | payer OTHER ==
--- OUTSIDE RECORDS SUMMARY | 2020-03-25 08:42 | XMS ---
:1950 Author Organization [facility] Support Name Relationship Address Phone RE, RETIRED Unavailable Unavailable Unavailable RE Unavailable Unavailable Unavailable [facility] Unavailable [address] [place] [address] [address]GHIA MARES [address] [facility] [place] [address] NGHIA MARES [address] [facility] [place] [address] Re-disclosure Warning The records that you are [...] is protected by Article 27-F of the [facility] Public Health law. If you continue you may haveaccess to information: Regarding HIV / AIDS; Provided by facilities licensed or operated by the [facility] Office of Mental Health; or Provided by the [facility] Office for People With Developmental Disabilities. If such information is present, then the following [facility] mandated warning applies: This information has been [...] to [facility] ormation type stein MEDICARE [id number] SP [id number] [facility] [id number] SP [id number] SELF PAY INSURANCE MEDICARE [id number] SP [id number] [id number] MEDICARE [id number] SP [id number] [facility] [id number] SP [id number] [facility] [id number] SP [id number] MEDICARE [id number] A Results ID Date Data Source [id number] 03/17/2020 10:50:00 AM EDT [facility] Name Value Range Interpretation Description Data Sup porting Code Source(s) Document(s ) SARS [facility] coronavirus 2 RNA This lab was ordered by [facility] and reported by [facility]. ID Date Data Source [id number] 03/09/2020 01:45:00 PM EDT [facility] Name Value Range Interpretation Description Data Sup porting Code Source(s) Document(s ) SARS [facility] coronavirus 2 RNA This lab was ordered by [facility] and reported by [facility]. ID Date Data Source [id number] 03/07/2020 10:00:00 AM EDT [facility] Name Value Range Interpretation Description Data Sup porting Code Source(s) Document(s ) SARS [facility] coronavirus 2 RNA This lab was ordered by [facility] and reported by [facility]. ID Date Data Source [id number] 03/02/2020 07:45:00 PM EDT [facility] Name Value Range Interpretation Description Data Sup porting Code Source(s) Document(s ) SARS [facility] coronavirus 2 RNA This lab was ordered by [facility] and reported by [facility]. ID Date Data Source [id number] 01/31/2020 06:15:00 PM EDT [facility] Name Value Range Interpretation Description Data Sup porting Code Source(s) Document(s ) SARS [facility] coronavirus 2 RNA This lab was ordered by [facility] and reported by [facility]. Procedure
[2020-03-25] MEDS ORDERED: ERTAPENEM SODIUM 1 GM VIAL ONE (11:59)
[2020-03-25] MEDS ORDERED: ERTAPENEM SODIUM 1 GM in SODIUM CHLORIDE 50 ML IVPB ONE (12:00)
[2020-03-25] MEDS ORDERED: SODIUM CHLORIDE 50 ML IVPB ONE (12:00)
[2020-03-25 12:16] VITALS: TEMP 98
[2020-03-25 12:51] VITALS: BP 143/81; PULSE 84
== END 2020-03-25 12:51 | disposition home or self-care (01) ==
LOC: JINFUSION 08:37
PROVIDERS: ATTEND Internal Medicine
DX: E11.621 Type 2 diabetes mellitus with foot ulcer (principal); L97.518 Non-pressure chronic ulcer of other part of right foot with other specified severity; M86.9 Osteomyelitis, unspecified; Z79.4 Long term (current) use of insulin
CPT/HCPCS: 96365

== ENCOUNTER 2020-09-29 11:29 | Emergency (ER) | payer OTHER ==
[2020-09-29 11:40] VITALS: TEMP 98.6; BMI 25.7
[2020-09-29 14:13] LABS: EOS % 1.1 % (0-4.5); HEMATOCRIT 41.9 % (35.4-49); HEMOGLOBIN 14.1 GM/dL (11.7-16.9); LYMPH % 10.3 % (8-40); MCH 28.4 pg (25.7-33.7); MCHC 33.7 g/dl (32.0-35.9); MEAN CELL VOLUME 84.2 fl (80-96); MEAN PLT VOLUME 9.7 fl (7.5-11.1); MONO % 7.3 % (3.8-10.2); NEUT % 80.3 % (42.8-82.8); PLATELET COUNT 190 K/MM3 (134-434); RBC 4.97 M/mm3 (4.00-5.60); RDW 15.2 % (11.9-15.9); WHITE BLOOD COUNT 10.9 K/mm3 (4.0-10.0)
[2020-09-29 14:31] LABS: POTASSIUM 4.3 mmol/L (3.5-5.1)
[2020-09-29 14:32] LABS: CALCIUM 9.1 mg/dL (8.5-10.1)
[2020-09-29 14:33] LABS: ALBUMIN 3.8 g/dl (3.4-5.0); BLOOD UREA NITROGEN 37.2 mg/dL (7-18)
[2020-09-29 14:36] LABS: CREATININE 2.1 mg/dL (0.55-1.3)
[2020-09-29 14:37] LABS: BILIRUBIN,TOTAL 0.3 mg/dL (0.2-1)
[2020-09-29 14:38] LABS: TOT PROT 7.8 g/dl (6.4-8.2)
[2020-09-29 17:59] VITALS: BP 160/83; PULSE 84
== END 2020-09-29 18:53 | disposition home or self-care (01) ==
LOC: JER 11:29
DX: K59.00 Constipation, unspecified (principal)
CPT/HCPCS: 36415; 74019-TC-FY; 74176-TC; 80053; 85025; 99285-25

== ENCOUNTER 2020-12-21 11:30 | Inpatient (IN) | payer OTHER ==
[2020-12-24] MEDS ORDERED: ERTAPENEM SODIUM 1 GM in SODIUM CHLORIDE 50 ML IVPB ONE (09:07)
[2020-12-24] MEDS ORDERED: PROPOFOL 20 ML ONE ×3 (09:34→15:52)
[2020-12-24] MEDS ORDERED: HYDROmorphone HCl 2 MG/ML VIAL ONE (09:34)
[2020-12-24] MEDS ORDERED: ROCURONIUM BROMIDE 50 MG/5 ML SYRINGE ONE ×2 (09:34→10:59)
[2020-12-24] MEDS ORDERED: MIDAZOLAM HCL 2 MG/2 ML SINGLE DOSE VIAL ONE ×3 (09:34→10:33)
[2020-12-24 09:36] VITALS: BMI 25.7
[2020-12-24] MEDS ORDERED: ceFAZolin SODIUM 1 GM VIAL ONE ×2 (09:36→18:03)
[2020-12-24] MEDS ORDERED: DEXAMETHASONE SOD PHOSPHATE 4 MG/1 ML VIAL ONE ×2 (09:36→15:04)
[2020-12-24] MEDS ORDERED: LIDOCAINE HCL/PF 2% SDV 5ML VIAL ONE ×2 (09:36→15:04)
[2020-12-24] MEDS ORDERED: ERTAPENEM SODIUM 1 GM VIAL ONE (09:46)
[2020-12-24] MEDS: ALVIMOPAN 12 MG CAP PO SCH ×2 (10:02→21:02)
[2020-12-24] MEDS ORDERED: BUPIVACAINE HCL/PF 0.5% (5MG/ML) 10 ML VIAL ONE (10:30)
[2020-12-24] MEDS ORDERED: BUPIVACAINE LIPOSOME/PF (EXPAREL) 266 MG/20 ML VIAL ONE (10:31)
[2020-12-24] MEDS ORDERED: fentaNYL CITRATE 250 MCG/5 ML VIAL ONE (10:59)
[2020-12-24] MEDS ORDERED: ETOMIDATE 20 MG/10 ML AMPUL IVPUSH ONE (11:07)
[2020-12-24] MEDS ORDERED: ERTAPENEM SODIUM 1 GM VIAL IVPB ONE (11:30)
[2020-12-24] MEDS ORDERED: INDOCYANINE GREEN 25 MG/10 ML VIAL IVPUSH ONE (14:07)
[2020-12-24] MEDS ORDERED: NEOSTIGMINE METHYLSULFATE 0.5 MG/ML - 10 ML MDV ONE (15:04)
[2020-12-24] MEDS ORDERED: GLYCOPYRROLATE 0.2 MG/1 ML VIAL ONE (15:04)
[2020-12-24] MEDS ORDERED: LIDOCAINE HCL 2% JELLY (5 ML/TUBE) ONE (15:04)
[2020-12-24] MEDS ORDERED: ACETAMINOPHEN INJECTION 100 ML IVPB ONE (15:33)
[2020-12-24] MEDS ORDERED: ACETAMINOPHEN 325 MG TABLET (FP) PO PRN (15:44)
[2020-12-24] MEDS ORDERED: SUCCINYLCHOLINE CHLORIDE 200 MG/10 ML SYRINGE ONE (15:52)
[2020-12-24] MEDS ORDERED: ONDANSETRON 4 MG/2 ML VIAL ONE (17:10)
[2020-12-24] MEDS: ONDANSETRON 4 MG/2 ML VIAL IVPUSH PRN (17:13)
[2020-12-24] MEDS ORDERED: LACTATED RINGERS SOLUTION 1,000 ML IV SCH (18:00)
[2020-12-24] MEDS ORDERED: CEFAZOLIN 2 GM/D5W 2 GM/50 ML ML IVPB SCH (18:00)
[2020-12-24] MEDS ORDERED: INSULIN (NOVOLOG) ASPART 100 UNITS/ML 10ML VIAL ONE (18:54)
[2020-12-24] MEDS: INSULIN SLIDING SCALE (NOVOLOG) 1 VIAL SQ SCH (18:58)
[2020-12-24] MEDS: ROSUVASTATIN CA 20 MG TABLET (FP) PO SCH (21:02)
[2020-12-24] MEDS: METOPROLOL TARTRATE 50 MG TABLET (FP) PO SCH (21:02)
[2020-12-24] MEDS ORDERED: ACETAMINOPHEN 1000 MG/100 ML VIAL (NON FORMULARY) IVPB PRN (21:09)
[2020-12-24] MEDS: LACTATED RINGERS SOLUTION 1,000 ML IV SCH (21:24)
[2020-12-24] MEDS: oxyCODONE HCL 5 MG TABLET PO PRN (21:32)
[2020-12-25] MEDS: CEFOXITIN SODIUM 1 GM in DEXTROSE 5%-WATER - 100 ML IVPB SCH ×3 (01:04→17:28)
[2020-12-25] MEDS: oxyCODONE HCL 5 MG TABLET PO PRN (06:25)
[2020-12-25] MEDS: LACTATED RINGERS SOLUTION 1,000 ML IV SCH (06:27)
[2020-12-25] MEDS: INSULIN SLIDING SCALE (NOVOLOG) 1 VIAL SQ SCH ×3 (06:29→16:47)
[2020-12-25] MEDS: INSULIN (LEVEMIR) 100 UNITS/ML UNITS SQ SCH (06:30)
[2020-12-25] MEDS ORDERED: PT OWN MED DRAWER 7, Y5N ONE ×4 (09:56→21:20)
[2020-12-25] MEDS: ENOXAPARIN NA (PORCINE) 40 MG/0.4 ML DISP.SYRIN SQ SCH (09:59)
[2020-12-25] MEDS: METOPROLOL TARTRATE 50 MG TABLET (FP) PO SCH ×2 (10:00→21:23)
[2020-12-25] MEDS: ALVIMOPAN 12 MG CAP PO SCH ×2 (10:00→21:23)
[2020-12-25] MEDS: LOSARTAN POTASSIUM 50 MG TABLET PO SCH (10:00)
[2020-12-25] MEDS: amLODIPine BESYLATE 10 MG TABLET (FP) PO SCH (10:00)
[2020-12-25] MEDS ORDERED: ASPIRIN 81 MG CHEWABLE TABLETS PO SCH (10:00)
[2020-12-25 10:28] LABS: BASO % 0.1 % (0-2.0); HEMATOCRIT 36.9 % (35.4-49); LYMPH % 2.5 % (8-40); MCH 27.9 pg (25.7-33.7); MCHC 32.5 g/dl (32.0-35.9); MEAN CELL VOLUME 85.9 fl (80-96); MEAN PLT VOLUME 9.8 fl (7.5-11.1); MONO % 4.9 % (3.8-10.2); NEUT % 92.5 % (42.8-82.8); PLATELET COUNT 168 10^3/uL (134-434); RBC 4.29 M/mm3 (4.00-5.60); RDW 15.6 % (11.9-15.9); WHITE BLOOD COUNT 13.2 K/mm3 (4.0-10.0)
[2020-12-25 10:35] LABS: INR 1.11 (0.83-1.09); PROTHROMBIN TIME (PATIENT) 13.4 SEC (9.7-13.0)
[2020-12-25 10:56] LABS: CALCIUM 8.1 mg/dL (8.5-10.1)
[2020-12-25 10:57] LABS: ALBUMIN 2.7 g/dl (3.4-5.0)
[2020-12-25 11:02] LABS: TOT PROT 5.8 g/dl (6.4-8.2)
[2020-12-25 11:10] LABS: BLOOD UREA NITROGEN 30.3 mg/dL (7-18)
[2020-12-25 11:20] LABS: ANISOCYTOSIS 0; MACROCYTOSIS 0; PLATELET ESTIMATE NORMAL
[2020-12-25 11:52] LABS: BILIRUBIN,TOTAL 0.5 mg/dL (0.2-1)
[2020-12-25] MEDS: SODIUM CHLORIDE 1,000 ML IV SCH (18:32)
[2020-12-25] MEDS: ROSUVASTATIN CA 20 MG TABLET (FP) PO SCH (21:23)
[2020-12-26] MEDS: INSULIN SLIDING SCALE (NOVOLOG) 1 VIAL SQ SCH ×3 (06:01→17:18)
[2020-12-26] MEDS: INSULIN (LEVEMIR) 100 UNITS/ML UNITS SQ SCH (06:01)
[2020-12-26] MEDS: SODIUM CHLORIDE 1,000 ML IV SCH ×3 (06:52→22:14)
[2020-12-26 08:29] LABS: BASO % 0.1 % (0-2.0); EOS % 0.4 % (0-4.5); HEMATOCRIT 34.5 % (35.4-49); HEMOGLOBIN 11.6 GM/dL (11.7-16.9); LYMPH % 3.7 % (8-40); MCH 28.4 pg (25.7-33.7); MCHC 33.5 g/dl (32.0-35.9); MEAN CELL VOLUME 84.7 fl (80-96); MEAN PLT VOLUME 9.5 fl (7.5-11.1); MONO % 3.8 % (3.8-10.2); PLATELET COUNT 165 10^3/uL (134-434); RBC 4.08 M/mm3 (4.00-5.60); RDW 15.5 % (11.9-15.9); WHITE BLOOD COUNT 14.5 K/mm3 (4.0-10.0)
[2020-12-26] MEDS: AMOX TR/POT CLAV 875MG/125MG TABLETS (FP) PO SCH ×2 (08:42→17:41)
[2020-12-26 08:46] LABS: CALCIUM 8.2 mg/dL (8.5-10.1)
[2020-12-26] MEDS ORDERED: PT OWN MED DRAWER 7, Y5N ONE ×3 (09:23→20:35)
[2020-12-26] MEDS: ALVIMOPAN 12 MG CAP PO SCH ×2 (09:47→21:26)
[2020-12-26] MEDS: ENOXAPARIN NA (PORCINE) 40 MG/0.4 ML DISP.SYRIN SQ SCH (09:48)
[2020-12-26] MEDS: METOPROLOL TARTRATE 50 MG TABLET (FP) PO SCH ×2 (09:49→21:26)
[2020-12-26] MEDS: LOSARTAN POTASSIUM 50 MG TABLET PO SCH (09:49)
[2020-12-26] MEDS: amLODIPine BESYLATE 10 MG TABLET (FP) PO SCH (09:49)
[2020-12-26 10:16] LABS: ANISOCYTOSIS 0; HELMET CELLS 0; HOWELL-JOLLY BODIES 0; MACROCYTOSIS 0; OVALOCYTE 0; PLATELET ESTIMATE NORMAL; ROULEAU 0; SICKELED CELLS 0; TARGET CELLS 0; TEAR DROP CELLS 0; TOXIC GRANULATION 0
[2020-12-26] MEDS: ROSUVASTATIN CA 20 MG TABLET (FP) PO SCH (21:26)
[2020-12-27 00:41] LABS: EPI CELLS 4 /uL (0-25.1); HYALINE CASTS 2 /uL (0-3.1); PH,URINE 5.5 (5.0-8.0); URINE APPEARANCE CLOUDY; URINE BACTERIA 11 /uL (0-1359); URINE BILIRUBIN NEGATIVE (NEGATIVE); URINE COLOR YELLOW; URINE GLUCOSE (UA) TRACE (NEGATIVE); URINE KETONE NEGATIVE (NEGATIVE); URINE LEUK ESTERASE NEGATIVE (NEGATIVE); URINE NITRITE NEGATIVE (NEGATIVE); URINE PROTEIN 3+ (NEGATIVE); URINE RBC 41 /uL (0-23.9); URINE UROBILINOGEN 0.2 mg/dL (0.2-1.0); URINE WBC 7 /uL (0-25.8)
[2020-12-27] MEDS ORDERED: ALBUTEROL SO4 2.5/IPRATROPIUM 0.5 INH SOL 3 ML VIAL.NEB. NEB ONE (04:00)
[2020-12-27] MEDS: INSULIN SLIDING SCALE (NOVOLOG) 1 VIAL SQ SCH ×3 (06:05→16:34)
[2020-12-27] MEDS: INSULIN (LEVEMIR) 100 UNITS/ML UNITS SQ SCH (06:19)
[2020-12-27 08:23] LABS: BASO % 0.2 % (0-2.0); EOS % 0.4 % (0-4.5); HEMATOCRIT 31.6 % (35.4-49); HEMOGLOBIN 10.3 GM/dL (11.7-16.9); LYMPH % 4.6 % (8-40); MCH 27.8 pg (25.7-33.7); MCHC 32.5 g/dl (32.0-35.9); MEAN CELL VOLUME 85.5 fl (80-96); MEAN PLT VOLUME 9.6 fl (7.5-11.1); MONO % 3.8 % (3.8-10.2); PLATELET COUNT 155 10^3/uL (134-434); RDW 15.7 % (11.9-15.9); WHITE BLOOD COUNT 12.8 K/mm3 (4.0-10.0)
[2020-12-27 08:35] LABS: ALBUMIN 2.2 g/dl (3.4-5.0); BLOOD UREA NITROGEN 36.3 mg/dL (7-18); CALCIUM 7.2 mg/dL (8.5-10.1)
[2020-12-27 08:38] LABS: CREATININE 1.8 mg/dL (0.55-1.3)
[2020-12-27 08:39] LABS: BILIRUBIN,TOTAL 0.4 mg/dL (0.2-1); TOT PROT 5.3 g/dl (6.4-8.2)
[2020-12-27] MEDS ORDERED: PT OWN MED DRAWER 7, Y5N ONE ×2 (09:39→21:31)
[2020-12-27] MEDS: LOSARTAN POTASSIUM 50 MG TABLET PO SCH (09:43)
[2020-12-27] MEDS: METOPROLOL TARTRATE 50 MG TABLET (FP) PO SCH ×2 (09:43→21:28)
[2020-12-27] MEDS: amLODIPine BESYLATE 10 MG TABLET (FP) PO SCH (09:43)
[2020-12-27] MEDS: ALVIMOPAN 12 MG CAP PO SCH ×2 (09:43→21:32)
[2020-12-27] MEDS: ENOXAPARIN NA (PORCINE) 40 MG/0.4 ML DISP.SYRIN SQ SCH (09:43)
[2020-12-27] MEDS: AMOX TR/POT CLAV 875MG/125MG TABLETS (FP) PO SCH ×2 (09:44→18:54)
[2020-12-27 10:44] LABS: PLATELET ESTIMATE NORMAL
[2020-12-27] MEDS: ONDANSETRON 4 MG/2 ML VIAL IVPUSH PRN (12:48)
[2020-12-27] MEDS: ROSUVASTATIN CA 20 MG TABLET (FP) PO SCH (21:28)
[2020-12-28] MEDS: INSULIN SLIDING SCALE (NOVOLOG) 1 VIAL SQ SCH ×3 (06:00→17:51)
[2020-12-28] MEDS: INSULIN (LEVEMIR) 100 UNITS/ML UNITS SQ SCH (06:01)
[2020-12-28 08:33] LABS: BASO % 0.2 % (0-2.0); EOS % 0.5 % (0-4.5); HEMATOCRIT 34.9 % (35.4-49); HEMOGLOBIN 11.4 GM/dL (11.7-16.9); MCH 27.8 pg (25.7-33.7); MCHC 32.6 g/dl (32.0-35.9); MEAN CELL VOLUME 85.3 fl (80-96); MEAN PLT VOLUME 9.7 fl (7.5-11.1); MONO % 5.9 % (3.8-10.2); NEUT % 89.4 % (42.8-82.8); PLATELET COUNT 180 10^3/uL (134-434); RBC 4.09 M/mm3 (4.00-5.60); RDW 15.7 % (11.9-15.9); WHITE BLOOD COUNT 11.2 K/mm3 (4.0-10.0)
[2020-12-28 08:51] LABS: CALCIUM 7.6 mg/dL (8.5-10.1)
[2020-12-28 08:53] LABS: BLOOD UREA NITROGEN 36.2 mg/dL (7-18)
[2020-12-28 08:55] LABS: CREATININE 1.8 mg/dL (0.55-1.3)
[2020-12-28] MEDS ORDERED: PT OWN MED DRAWER 7, Y5N ONE (09:47)
[2020-12-28] MEDS: METOPROLOL TARTRATE 50 MG TABLET (FP) PO SCH ×2 (10:00→22:46)
[2020-12-28] MEDS: amLODIPine BESYLATE 10 MG TABLET (FP) PO SCH (10:00)
[2020-12-28] MEDS: ENOXAPARIN NA (PORCINE) 40 MG/0.4 ML DISP.SYRIN SQ SCH (10:00)
[2020-12-28] MEDS: AMOX TR/POT CLAV 875MG/125MG TABLETS (FP) PO SCH ×2 (10:00→17:51)
[2020-12-28] MEDS: LOSARTAN POTASSIUM 50 MG TABLET PO SCH (10:00)
[2020-12-28] MEDS ORDERED: SODIUM CHLORIDE 1,000 ML IV SCH (11:30)
[2020-12-28] MEDS ORDERED: FUROSEMIDE 40 MG TABLET (FP) PO ONE (12:30)
[2020-12-28] MEDS ORDERED: INSULIN (NOVOLOG) ASPART 100 UNITS/ML 10ML VIAL ONE (12:33)
[2020-12-28] MEDS: ROSUVASTATIN CA 20 MG TABLET (FP) PO SCH (22:46)
[2020-12-29] MEDS: INSULIN (LEVEMIR) 100 UNITS/ML UNITS SQ SCH (06:13)
[2020-12-29] MEDS: INSULIN SLIDING SCALE (NOVOLOG) 1 VIAL SQ SCH ×3 (06:13→16:33)
[2020-12-29 07:32] VITALS: PULSE 70
[2020-12-29] MEDS: AMOX TR/POT CLAV 875MG/125MG TABLETS (FP) PO SCH ×2 (08:06→16:49)
[2020-12-29] MEDS: METOPROLOL TARTRATE 50 MG TABLET (FP) PO SCH (09:21)
[2020-12-29] MEDS: ENOXAPARIN NA (PORCINE) 40 MG/0.4 ML DISP.SYRIN SQ SCH (09:21)
[2020-12-29] MEDS: LOSARTAN POTASSIUM 50 MG TABLET PO SCH (09:21)
[2020-12-29] MEDS: amLODIPine BESYLATE 10 MG TABLET (FP) PO SCH (09:21)
[2020-12-29 10:16] LABS: BASO % 0.3 % (0-2.0); EOS % 1.1 % (0-4.5); HEMATOCRIT 34.6 % (35.4-49); HEMOGLOBIN 11.4 GM/dL (11.7-16.9); MCH 27.9 pg (25.7-33.7); MEAN CELL VOLUME 84.6 fl (80-96); MEAN PLT VOLUME 9.6 fl (7.5-11.1); MONO % 8.7 % (3.8-10.2); NEUT % 82.9 % (42.8-82.8); PLATELET COUNT 210 10^3/uL (134-434); RBC 4.09 M/mm3 (4.00-5.60); RDW 15.2 % (11.9-15.9); WHITE BLOOD COUNT 10.3 K/mm3 (4.0-10.0)
[2020-12-29 10:20] LABS: CALCIUM 7.7 mg/dL (8.5-10.1)
[2020-12-29 10:21] LABS: BLOOD UREA NITROGEN 32.3 mg/dL (7-18)
[2020-12-29 10:24] LABS: CREATININE 1.6 mg/dL (0.55-1.3)
[2020-12-29 15:51] VITALS: BP 138/76; TEMP 98.4
== END 2020-12-29 17:40 | disposition home or self-care (01) | DRG 330 ==
LOC: J2C 12-24 04:43 → J8W 12-24 18:14
PROVIDERS: ADMIT Internal Medicine; ATTEND Student in an Organized Health Care Education/Training Program
PROC: 8E0W4CZ Robotic Assisted Procedure of Trunk Region, Percutaneous Endoscopic Approach (ICD-10-PCS; 2020-12-24)
PROC: 0DTK4ZZ Resection of Ascending Colon, Percutaneous Endoscopic Approach (ICD-10-PCS; principal; 2020-12-24 10:30)
DX: D12.2 Benign neoplasm of ascending colon (principal); K91.89 Other postprocedural complications and disorders of digestive system; E11.22 Type 2 diabetes mellitus with diabetic chronic kidney disease; I12.9 Hypertensive chronic kidney disease with stage 1 through stage 4 chronic kidney disease, or unspecified chronic kidney disease; N18.9 Chronic kidney disease, unspecified; I25.10 Atherosclerotic heart disease of native coronary artery without angina pectoris; Z95.1 Presence of aortocoronary bypass graft; R19.7 Diarrhea, unspecified; Y83.8 Other surgical procedures as the cause of abnormal reaction of the patient, or of later complication, without mention of misadventure at the time of the procedure; N40.0 Benign prostatic hyperplasia without lower urinary tract symptoms; E78.5 Hyperlipidemia, unspecified
CPT/HCPCS: 36415; 71045-TC-FY; 71046-TC-FY; 74019-TC-FY; 74176-TC; 80048; 80053; 81003; 82962; 85025; 85610; 87086; 87324; 87449; 88304-TC; 88309-TC; 94010; 94640; 94760; 94761; 97116-GP; 97161-GP; C9803; J0131; Q9967; U0003; U0005

== ENCOUNTER 2021-01-19 11:24 | Inpatient (IN) | payer OTHER ==
[2021-01-19] MEDS ORDERED: FUROSEMIDE 40 MG/4 ML INJECTABLE VIAL IVPUSH ONE ×2 (12:56→17:34)
[2021-01-19] MEDS ORDERED: FUROSEMIDE 40 MG/4 ML INJECTABLE VIAL ONE ×2 (12:59→17:46)
[2021-01-19 13:06] LABS: BASO % 0.6 % (0-2.0); EOS % 1.6 % (0-4.5); HEMATOCRIT 32.5 % (35.4-49); HEMOGLOBIN 10.6 GM/dL (11.7-16.9); LYMPH % 7.2 % (8-40); MCH 27.1 pg (25.7-33.7); MCHC 32.6 g/dl (32.0-35.9); MEAN CELL VOLUME 83.3 fl (80-96); MEAN PLT VOLUME 8.7 fl (7.5-11.1); MONO % 8.5 % (3.8-10.2); NEUT % 82.1 % (42.8-82.8); PLATELET COUNT 303 10^3/uL (134-434); RDW 16.9 % (11.9-15.9); WHITE BLOOD COUNT 10.2 K/mm3 (4.0-10.0)
[2021-01-19 13:07] LABS: VENOUS BASE EXCESS -1.6 mmol/L (-2-2); VENOUS O2 SATURATION 74.7 % (70-80); VENOUS PCO2 37.3 mmHg (38-52); VENOUS PH 7.404 (7.310-7.410)
[2021-01-19 13:12] LABS: INR 1.04 (0.83-1.09); PROTHROMBIN TIME (PATIENT) 12.6 SEC (9.7-13.0)
[2021-01-19 13:15] LABS: ACTIVATED PTT 27.6 SECONDS (25.2-36.5)
[2021-01-19 13:25] LABS: CHLORIDE 103 mmol/L (98-107); SODIUM 137 mmol/L (136-145)
[2021-01-19 13:27] LABS: CALCIUM 8.5 mg/dL (8.5-10.1)
[2021-01-19 13:28] LABS: ANION GAP 12 MMOL/L (8-16); CO2 22 mmol/L (21-32); GLUCOSE,RANDOM 162 mg/dL (74-106)
[2021-01-19 13:31] LABS: CREATININE 1.9 mg/dL (0.55-1.3); SGOT/AST 38 U/L (15-37); SGPT/ALT 57 U/L (13-61)
[2021-01-19 13:33] LABS: BILIRUBIN,TOTAL 0.4 mg/dL (0.2-1); TOT PROT 7.6 g/dl (6.4-8.2)
[2021-01-19 13:43] LABS: ALK PHOS 205 U/L (45-117)
[2021-01-19] MEDS ORDERED: ONDANSETRON 4 MG/2 ML VIAL IVPUSH PRN (18:48)
[2021-01-19] MEDS ORDERED: ACETAMINOPHEN 325 MG TABLET (FP) PO PRN (18:49)
[2021-01-19 20:27] VITALS: BMI 25.4
[2021-01-19] MEDS: ROSUVASTATIN CA 20 MG TABLET (FP) PO SCH (21:46)
[2021-01-19] MEDS: HEPARIN NA (PORCINE) 5,000 UNITS/ML 1ML VIAL SQ SCH (21:46)
[2021-01-19] MEDS: MELATONIN 5 MG TABLETS PO SCH (21:46)
[2021-01-19] MEDS: METOPROLOL TARTRATE 50 MG TABLET (FP) PO SCH (21:46)
[2021-01-19] MEDS: INSULIN SLIDING SCALE (NOVOLOG) 1 VIAL SQ SCH (21:49)
[2021-01-20] MEDS: HEPARIN NA (PORCINE) 5,000 UNITS/ML 1ML VIAL SQ SCH ×3 (05:31→21:25)
[2021-01-20] MEDS: INSULIN SLIDING SCALE (NOVOLOG) 1 VIAL SQ SCH ×4 (06:05→21:26)
[2021-01-20 06:46] LABS: BASO % 0.9 % (0-2.0); EOS % 2.9 % (0-4.5); HEMATOCRIT 29.7 % (35.4-49); HEMOGLOBIN 9.6 GM/dL (11.7-16.9); LYMPH % 7.4 % (8-40); MCH 26.9 pg (25.7-33.7); MCHC 32.3 g/dl (32.0-35.9); MEAN CELL VOLUME 83.3 fl (80-96); MEAN PLT VOLUME 8.7 fl (7.5-11.1); MONO % 10.3 % (3.8-10.2); NEUT % 78.5 % (42.8-82.8); PLATELET COUNT 265 10^3/uL (134-434); RBC 3.57 M/mm3 (4.00-5.60); RDW 16.5 % (11.9-15.9); WHITE BLOOD COUNT 8.3 K/mm3 (4.0-10.0)
[2021-01-20 07:08] LABS: ALBUMIN 2.5 g/dl (3.4-5.0); MAGNESIUM 2.3 mg/dL (1.8-2.4)
[2021-01-20 07:09] LABS: CALCIUM 8.2 mg/dL (8.5-10.1)
[2021-01-20 07:10] LABS: BLOOD UREA NITROGEN 38.1 mg/dL (7-18)
[2021-01-20 07:12] LABS: TOT PROT 6.3 g/dl (6.4-8.2)
[2021-01-20 07:13] LABS: PHOSPHOROUS 4.5 mg/dL (2.5-4.9)
[2021-01-20 07:14] LABS: BILIRUBIN,TOTAL 0.4 mg/dL (0.2-1)
[2021-01-20] MEDS: METOPROLOL TARTRATE 50 MG TABLET (FP) PO SCH ×2 (09:15→21:25)
[2021-01-20] MEDS: ASPIRIN 81 MG CHEWABLE TABLETS PO SCH (09:15)
[2021-01-20] MEDS: FUROSEMIDE 40 MG/4 ML INJECTABLE VIAL IVPUSH SCH (09:15)
[2021-01-20 19:15] LABS: EPI CELLS 4 /uL (0-25.1); HYALINE CASTS 0 /uL (0-3.1); PH,URINE 6.5 (5.0-8.0); URINE APPEARANCE CLEAR; URINE BACTERIA 1 /uL (0-1359); URINE BILIRUBIN NEGATIVE (NEGATIVE); URINE COLOR YELLOW; URINE GLUCOSE (UA) 1+ (NEGATIVE); URINE KETONE NEGATIVE (NEGATIVE); URINE LEUK ESTERASE NEGATIVE (NEGATIVE); URINE NITRITE NEGATIVE (NEGATIVE); URINE PROTEIN 3+ (NEGATIVE); URINE RBC 5 /uL (0-23.9); URINE UROBILINOGEN 0.2 mg/dL (0.2-1.0); URINE WBC 4 /uL (0-25.8)
[2021-01-20] MEDS: ROSUVASTATIN CA 20 MG TABLET (FP) PO SCH (21:25)
[2021-01-20] MEDS: MELATONIN 5 MG TABLETS PO SCH (21:25)
[2021-01-21] MEDS: HEPARIN NA (PORCINE) 5,000 UNITS/ML 1ML VIAL SQ SCH ×3 (05:24→21:20)
[2021-01-21] MEDS: INSULIN SLIDING SCALE (NOVOLOG) 1 VIAL SQ SCH ×4 (06:16→21:21)
[2021-01-21 07:15] LABS: BASO % 0.4 % (0-2.0); EOS % 2.8 % (0-4.5); HEMATOCRIT 29.7 % (35.4-49); HEMOGLOBIN 9.6 GM/dL (11.7-16.9); LYMPH % 8.4 % (8-40); MCH 26.8 pg (25.7-33.7); MCHC 32.2 g/dl (32.0-35.9); MEAN CELL VOLUME 83.3 fl (80-96); MEAN PLT VOLUME 8.7 fl (7.5-11.1); NEUT % 77.4 % (42.8-82.8); PLATELET COUNT 255 10^3/uL (134-434); RBC 3.57 M/mm3 (4.00-5.60); RDW 16.8 % (11.9-15.9); WHITE BLOOD COUNT 7.2 K/mm3 (4.0-10.0)
[2021-01-21 07:33] LABS: CALCIUM 8.2 mg/dL (8.5-10.1)
[2021-01-21 07:34] LABS: BLOOD UREA NITROGEN 45.7 mg/dL (7-18)
[2021-01-21 07:37] LABS: CREATININE 2.2 mg/dL (0.55-1.3)
[2021-01-21] MEDS: METOPROLOL TARTRATE 50 MG TABLET (FP) PO SCH ×2 (09:24→21:20)
[2021-01-21] MEDS: FUROSEMIDE 40 MG/4 ML INJECTABLE VIAL IVPUSH SCH ×2 (09:24→13:46)
[2021-01-21] MEDS: ASPIRIN 81 MG CHEWABLE TABLETS PO SCH (09:24)
[2021-01-21] MEDS ORDERED: INSULIN (NOVOLOG) ASPART 100 UNITS/ML 10ML VIAL ONE (17:07)
[2021-01-21] MEDS: ROSUVASTATIN CA 20 MG TABLET (FP) PO SCH (21:20)
[2021-01-21] MEDS: MELATONIN 5 MG TABLETS PO SCH (21:20)
[2021-01-22] MEDS: FUROSEMIDE 40 MG/4 ML INJECTABLE VIAL IVPUSH SCH ×2 (05:55→13:50)
[2021-01-22] MEDS: HEPARIN NA (PORCINE) 5,000 UNITS/ML 1ML VIAL SQ SCH ×3 (05:56→21:24)
[2021-01-22] MEDS: INSULIN SLIDING SCALE (NOVOLOG) 1 VIAL SQ SCH ×4 (06:24→21:24)
[2021-01-22 07:27] LABS: ALBUMIN 2.9 g/dl (3.4-5.0); BLOOD UREA NITROGEN 49.5 mg/dL (7-18); CALCIUM 8.6 mg/dL (8.5-10.1); MAGNESIUM 2.4 mg/dL (1.8-2.4)
[2021-01-22 07:30] LABS: PHOSPHOROUS 4.4 mg/dL (2.5-4.9)
[2021-01-22 07:32] LABS: BILIRUBIN,TOTAL 0.3 mg/dL (0.2-1); TOT PROT 7.1 g/dl (6.4-8.2)
[2021-01-22 07:37] LABS: BASO % 0.7 % (0-2.0); EOS % 2.7 % (0-4.5); HEMATOCRIT 33.3 % (35.4-49); HEMOGLOBIN 10.8 GM/dL (11.7-16.9); LYMPH % 9.1 % (8-40); MCH 26.8 pg (25.7-33.7); MCHC 32.5 g/dl (32.0-35.9); MEAN CELL VOLUME 82.6 fl (80-96); MEAN PLT VOLUME 9.1 fl (7.5-11.1); MONO % 9.2 % (3.8-10.2); NEUT % 78.3 % (42.8-82.8); PLATELET COUNT 283 10^3/uL (134-434); RBC 4.03 M/mm3 (4.00-5.60); RDW 16.9 % (11.9-15.9); WHITE BLOOD COUNT 7.6 K/mm3 (4.0-10.0)
[2021-01-22] MEDS: amLODIPine BESYLATE 10 MG TABLET (FP) PO SCH (09:27)
[2021-01-22] MEDS: ASPIRIN 81 MG CHEWABLE TABLETS PO SCH (09:27)
[2021-01-22] MEDS: METOPROLOL TARTRATE 50 MG TABLET (FP) PO SCH ×2 (09:28→21:23)
[2021-01-22] MEDS: LOSARTAN POTASSIUM 50 MG TABLET PO SCH (09:28)
[2021-01-22] MEDS ORDERED: INSULIN (NOVOLOG) ASPART 100 UNITS/ML 10ML VIAL ONE (11:20)
[2021-01-22] MEDS: ROSUVASTATIN CA 20 MG TABLET (FP) PO SCH (21:23)
[2021-01-22] MEDS: MELATONIN 5 MG TABLETS PO SCH (21:29)
[2021-01-23] MEDS: FUROSEMIDE 40 MG/4 ML INJECTABLE VIAL IVPUSH SCH ×2 (06:03→13:44)
[2021-01-23] MEDS: HEPARIN NA (PORCINE) 5,000 UNITS/ML 1ML VIAL SQ SCH ×3 (06:03→21:27)
[2021-01-23] MEDS: INSULIN SLIDING SCALE (NOVOLOG) 1 VIAL SQ SCH ×4 (06:24→21:27)
[2021-01-23 07:17] LABS: BASO % 0.8 % (0-2.0); EOS % 2.9 % (0-4.5); HEMATOCRIT 32.7 % (35.4-49); HEMOGLOBIN 10.8 GM/dL (11.7-16.9); LYMPH % 7.8 % (8-40); MCH 27.3 pg (25.7-33.7); MEAN CELL VOLUME 82.7 fl (80-96); MEAN PLT VOLUME 8.9 fl (7.5-11.1); MONO % 9.3 % (3.8-10.2); NEUT % 79.2 % (42.8-82.8); PLATELET COUNT 271 10^3/uL (134-434); RBC 3.96 M/mm3 (4.00-5.60); RDW 16.6 % (11.9-15.9); WHITE BLOOD COUNT 7.1 K/mm3 (4.0-10.0)
[2021-01-23 07:47] LABS: ALBUMIN 2.8 g/dl (3.4-5.0); CALCIUM 8.4 mg/dL (8.5-10.1)
[2021-01-23 07:50] LABS: MAGNESIUM 2.3 mg/dL (1.8-2.4)
[2021-01-23 07:51] LABS: BILIRUBIN,TOTAL 0.3 mg/dL (0.2-1); PHOSPHOROUS 4.4 mg/dL (2.5-4.9); TOT PROT 6.9 g/dl (6.4-8.2)
[2021-01-23 07:57] LABS: BLOOD UREA NITROGEN 43.9 mg/dL (7-18)
[2021-01-23] MEDS ORDERED: INSULIN (LEVEMIR) 100 UNITS/ML UNITS SQ ONE (11:45)
[2021-01-23] MEDS: ASPIRIN 81 MG CHEWABLE TABLETS PO SCH (11:59)
[2021-01-23] MEDS: amLODIPine BESYLATE 10 MG TABLET (FP) PO SCH (11:59)
[2021-01-23] MEDS: LOSARTAN POTASSIUM 50 MG TABLET PO SCH (11:59)
[2021-01-23] MEDS: METOPROLOL TARTRATE 50 MG TABLET (FP) PO SCH ×2 (12:00→21:27)
[2021-01-23] MEDS: ROSUVASTATIN CA 20 MG TABLET (FP) PO SCH (21:26)
[2021-01-23] MEDS: MELATONIN 5 MG TABLETS PO SCH (21:27)
[2021-01-24] MEDS: HEPARIN NA (PORCINE) 5,000 UNITS/ML 1ML VIAL SQ SCH ×3 (06:11→22:32)
[2021-01-24] MEDS: FUROSEMIDE 40 MG/4 ML INJECTABLE VIAL IVPUSH SCH ×2 (06:11→13:37)
[2021-01-24] MEDS: INSULIN SLIDING SCALE (NOVOLOG) 1 VIAL SQ SCH ×4 (06:12→22:38)
[2021-01-24 07:06] LABS: BASO % 0.8 % (0-2.0); EOS % 2.9 % (0-4.5); HEMATOCRIT 31.8 % (35.4-49); HEMOGLOBIN 10.5 GM/dL (11.7-16.9); LYMPH % 10.6 % (8-40); MCH 27.2 pg (25.7-33.7); MCHC 33.1 g/dl (32.0-35.9); MEAN CELL VOLUME 82.3 fl (80-96); MONO % 10.2 % (3.8-10.2); NEUT % 75.5 % (42.8-82.8); PLATELET COUNT 261 10^3/uL (134-434); RBC 3.87 M/mm3 (4.00-5.60); RDW 16.6 % (11.9-15.9); WHITE BLOOD COUNT 6.9 K/mm3 (4.0-10.0)
[2021-01-24 07:29] LABS: CALCIUM 8.6 mg/dL (8.5-10.1)
[2021-01-24 07:30] LABS: ALBUMIN 2.8 g/dl (3.4-5.0); BLOOD UREA NITROGEN 45.2 mg/dL (7-18); MAGNESIUM 2.3 mg/dL (1.8-2.4)
[2021-01-24] MEDS: INSULIN (LEVEMIR) 100 UNITS/ML UNITS SQ SCH (07:30)
[2021-01-24 07:32] LABS: CREATININE 2.2 mg/dL (0.55-1.3)
[2021-01-24 07:34] LABS: BILIRUBIN,TOTAL 0.2 mg/dL (0.2-1); PHOSPHOROUS 4.3 mg/dL (2.5-4.9); TOT PROT 6.9 g/dl (6.4-8.2)
[2021-01-24] MEDS: LOSARTAN POTASSIUM 50 MG TABLET PO SCH (10:06)
[2021-01-24] MEDS: METOPROLOL TARTRATE 50 MG TABLET (FP) PO SCH ×2 (10:06→22:31)
[2021-01-24] MEDS: ASPIRIN 81 MG CHEWABLE TABLETS PO SCH (10:06)
[2021-01-24] MEDS: amLODIPine BESYLATE 10 MG TABLET (FP) PO SCH (10:06)
[2021-01-24 17:07] LABS: EPI CELLS 4 /uL (0-25.1); HYALINE CASTS 0 /uL (0-3.1); PH,URINE 6.5 (5.0-8.0); URINE APPEARANCE CLEAR; URINE BACTERIA 8818 /uL (0-1359); URINE BILIRUBIN NEGATIVE (NEGATIVE); URINE COLOR YELLOW; URINE GLUCOSE (UA) 1+ (NEGATIVE); URINE KETONE NEGATIVE (NEGATIVE); URINE LEUK ESTERASE NEGATIVE (NEGATIVE); URINE NITRITE NEGATIVE (NEGATIVE); URINE PROTEIN 3+ (NEGATIVE); URINE RBC 5 /uL (0-23.9); URINE UROBILINOGEN 0.2 mg/dL (0.2-1.0); URINE WBC 8 /uL (0-25.8)
[2021-01-24] MEDS: ROSUVASTATIN CA 20 MG TABLET (FP) PO SCH (22:31)
[2021-01-24] MEDS: MELATONIN 5 MG TABLETS PO SCH (22:32)
[2021-01-25] MEDS: FUROSEMIDE 40 MG/4 ML INJECTABLE VIAL IVPUSH SCH ×2 (06:27→15:21)
[2021-01-25] MEDS: INSULIN SLIDING SCALE (NOVOLOG) 1 VIAL SQ SCH ×4 (06:28→22:43)
[2021-01-25] MEDS: HEPARIN NA (PORCINE) 5,000 UNITS/ML 1ML VIAL SQ SCH ×3 (06:28→22:43)
[2021-01-25] MEDS: INSULIN (LEVEMIR) 100 UNITS/ML UNITS SQ SCH (06:29)
[2021-01-25 08:45] LABS: BASO % 0.8 % (0-2.0); EOS % 2.5 % (0-4.5); HEMATOCRIT 32.3 % (35.4-49); HEMOGLOBIN 10.7 GM/dL (11.7-16.9); LYMPH % 8.1 % (8-40); MCH 27.3 pg (25.7-33.7); MCHC 33.1 g/dl (32.0-35.9); MEAN CELL VOLUME 82.6 fl (80-96); MEAN PLT VOLUME 9.2 fl (7.5-11.1); MONO % 9.5 % (3.8-10.2); NEUT % 79.1 % (42.8-82.8); PLATELET COUNT 259 10^3/uL (134-434); WHITE BLOOD COUNT 7.4 K/mm3 (4.0-10.0)
[2021-01-25 09:20] LABS: ALBUMIN 2.8 g/dl (3.4-5.0); BLOOD UREA NITROGEN 44.7 mg/dL (7-18); CALCIUM 8.5 mg/dL (8.5-10.1); MAGNESIUM 2.4 mg/dL (1.8-2.4)
[2021-01-25 09:24] LABS: CREATININE 2.1 mg/dL (0.55-1.3); PHOSPHOROUS 3.6 mg/dL (2.5-4.9)
[2021-01-25 09:25] LABS: BILIRUBIN,TOTAL 0.4 mg/dL (0.2-1); TOT PROT 6.9 g/dl (6.4-8.2)
[2021-01-25] MEDS: amLODIPine BESYLATE 10 MG TABLET (FP) PO SCH (10:28)
[2021-01-25] MEDS: METOPROLOL TARTRATE 50 MG TABLET (FP) PO SCH ×2 (10:28→22:35)
[2021-01-25] MEDS: LOSARTAN POTASSIUM 50 MG TABLET PO SCH (10:28)
[2021-01-25] MEDS: ASPIRIN 81 MG CHEWABLE TABLETS PO SCH (10:28)
[2021-01-25] MEDS: MELATONIN 5 MG TABLETS PO SCH (22:34)
[2021-01-25] MEDS: ROSUVASTATIN CA 20 MG TABLET (FP) PO SCH (22:35)
[2021-01-26] MEDS: FUROSEMIDE 40 MG/4 ML INJECTABLE VIAL IVPUSH SCH (06:33)
[2021-01-26] MEDS: INSULIN SLIDING SCALE (NOVOLOG) 1 VIAL SQ SCH ×4 (06:34→22:39)
[2021-01-26] MEDS: HEPARIN NA (PORCINE) 5,000 UNITS/ML 1ML VIAL SQ SCH ×2 (06:34→13:56)
[2021-01-26] MEDS: INSULIN (LEVEMIR) 100 UNITS/ML UNITS SQ SCH (06:35)
[2021-01-26 08:04] LABS: BASO % 0.8 % (0-2.0); EOS % 2.6 % (0-4.5); HEMATOCRIT 32.6 % (35.4-49); HEMOGLOBIN 10.6 GM/dL (11.7-16.9); LYMPH % 8.9 % (8-40); MCH 27.1 pg (25.7-33.7); MCHC 32.6 g/dl (32.0-35.9); MEAN CELL VOLUME 83.2 fl (80-96); MEAN PLT VOLUME 9.5 fl (7.5-11.1); MONO % 7.9 % (3.8-10.2); NEUT % 79.8 % (42.8-82.8); PLATELET COUNT 270 10^3/uL (134-434); RBC 3.92 M/mm3 (4.00-5.60); RDW 17.2 % (11.9-15.9)
[2021-01-26 08:16] LABS: CALCIUM 8.8 mg/dL (8.5-10.1)
[2021-01-26 08:17] LABS: BLOOD UREA NITROGEN 46.6 mg/dL (7-18); MAGNESIUM 2.4 mg/dL (1.8-2.4)
[2021-01-26 08:20] LABS: CREATININE 2.2 mg/dL (0.55-1.3)
[2021-01-26 08:21] LABS: TOT PROT 7.4 g/dl (6.4-8.2)
[2021-01-26 08:41] LABS: BILIRUBIN,TOTAL 0.2 mg/dL (0.2-1)
[2021-01-26 08:48] LABS: PHOSPHOROUS 4.3 mg/dL (2.5-4.9)
[2021-01-26] MEDS: LOSARTAN POTASSIUM 50 MG TABLET PO SCH (09:59)
[2021-01-26] MEDS: ASPIRIN 81 MG CHEWABLE TABLETS PO SCH (09:59)
[2021-01-26] MEDS: METOPROLOL TARTRATE 50 MG TABLET (FP) PO SCH ×2 (09:59→22:39)
[2021-01-26] MEDS: amLODIPine BESYLATE 10 MG TABLET (FP) PO SCH (09:59)
[2021-01-26] MEDS ORDERED: PT OWN MED DRAWER 7, Y5N ONE (10:12)
[2021-01-26] MEDS ORDERED: INSULIN (LEVEMIR) 100 UNITS/ML UNITS SQ ONE (10:13)
[2021-01-26] MEDS: FUROSEMIDE 40 MG TABLET (FP) PO SCH (13:56)
[2021-01-26] MEDS ORDERED: FUROSEMIDE 40 MG TABLET (FP) PO SCH (14:00)
[2021-01-26] MEDS: MELATONIN 5 MG TABLETS PO SCH (22:38)
[2021-01-26] MEDS: ROSUVASTATIN CA 20 MG TABLET (FP) PO SCH (22:39)
[2021-01-27] MEDS: INSULIN (LEVEMIR) 100 UNITS/ML UNITS SQ SCH (06:58)
[2021-01-27] MEDS: INSULIN SLIDING SCALE (NOVOLOG) 1 VIAL SQ SCH (06:58)
[2021-01-27] MEDS: FUROSEMIDE 40 MG TABLET (FP) PO SCH (06:58)
[2021-01-27 08:23] LABS: BASO % 0.6 % (0-2.0); EOS % 2.4 % (0-4.5); HEMATOCRIT 31.9 % (35.4-49); HEMOGLOBIN 10.6 GM/dL (11.7-16.9); LYMPH % 8.1 % (8-40); MCH 27.1 pg (25.7-33.7); MCHC 33.2 g/dl (32.0-35.9); MEAN CELL VOLUME 81.9 fl (80-96); MEAN PLT VOLUME 9.4 fl (7.5-11.1); MONO % 9.5 % (3.8-10.2); NEUT % 79.4 % (42.8-82.8); PLATELET COUNT 226 10^3/uL (134-434); RDW 17.2 % (11.9-15.9); WHITE BLOOD COUNT 8.8 K/mm3 (4.0-10.0)
[2021-01-27 08:37] LABS: ALBUMIN 2.9 g/dl (3.4-5.0); CREATININE 2.4 mg/dL (0.55-1.3); PHOSPHOROUS 4.5 mg/dL (2.5-4.9)
[2021-01-27 08:38] LABS: BILIRUBIN,TOTAL 0.3 mg/dL (0.2-1)
[2021-01-27 08:39] LABS: MAGNESIUM 2.4 mg/dL (1.8-2.4); TOT PROT 7.1 g/dl (6.4-8.2)
[2021-01-27 08:40] LABS: CALCIUM 8.5 mg/dL (8.5-10.1)
[2021-01-27 08:41] LABS: BLOOD UREA NITROGEN 53.3 mg/dL (7-18)
[2021-01-27 09:09] VITALS: BP 136/67; TEMP 97.9
[2021-01-27] MEDS: amLODIPine BESYLATE 10 MG TABLET (FP) PO SCH (10:22)
[2021-01-27] MEDS: ASPIRIN 81 MG CHEWABLE TABLETS PO SCH (10:22)
[2021-01-27] MEDS: LOSARTAN POTASSIUM 50 MG TABLET PO SCH (10:22)
[2021-01-27] MEDS: METOPROLOL TARTRATE 50 MG TABLET (FP) PO SCH (10:22)
[2021-01-27 10:38] VITALS: PULSE 60
== END 2021-01-27 14:00 | disposition home or self-care (01) | DRG 291 ==
LOC: JER 11:24 → JERBED 13:37 → UNDOADMIN 13:37 → J4W 19:54
PROVIDERS: ADMIT Internal Medicine; ATTEND Internal Medicine
DX: I13.0 Hypertensive heart and chronic kidney disease with heart failure and stage 1 through stage 4 chronic kidney disease, or unspecified chronic kidney disease (principal); I50.23 Acute on chronic systolic (congestive) heart failure; N18.30 Chronic kidney disease, stage 3 unspecified; I25.10 Atherosclerotic heart disease of native coronary artery without angina pectoris; E11.22 Type 2 diabetes mellitus with diabetic chronic kidney disease; E11.621 Type 2 diabetes mellitus with foot ulcer; N40.0 Benign prostatic hyperplasia without lower urinary tract symptoms; E78.5 Hyperlipidemia, unspecified; Z95.1 Presence of aortocoronary bypass graft; Z98.61 Coronary angioplasty status; K21.9 Gastro-esophageal reflux disease without esophagitis; E11.65 Type 2 diabetes mellitus with hyperglycemia
CPT/HCPCS: 36415; 71045-TC-FY; 80048; 80053; 80061; 81003; 82043; 82550; 82570; 82803; 82962; 83036; 83721; 83735; 83880; 84100; 84156; 84484; 85025; 85379; 85610; 85730; 93005; 93010; 93306-TC; 93970-TC; 94761; 99285-25; C9803; J1644; U0003; U0005

== ENCOUNTER 2021-03-13 11:36 | Inpatient (IN) | payer OTHER ==
[2021-03-13 14:00] LABS: BASO % 1.1 % (0-2.0); EOS % 0.8 % (0-4.5); HEMATOCRIT 35.2 % (35.4-49); HEMOGLOBIN 11.9 GM/dL (11.7-16.9); LYMPH % 5.5 % (8-40); MCH 27.6 pg (25.7-33.7); MCHC 33.6 g/dl (32.0-35.9); MEAN CELL VOLUME 81.9 fl (80-96); MEAN PLT VOLUME 9.3 fl (7.5-11.1); MONO % 8.2 % (3.8-10.2); NEUT % 84.4 % (42.8-82.8); PLATELET COUNT 217 10^3/uL (134-434); RDW 18.5 % (11.9-15.9); WHITE BLOOD COUNT 10.6 K/mm3 (4.0-10.0)
[2021-03-13 14:33] LABS: ALBUMIN 3.3 g/dl (3.4-5.0); BLOOD UREA NITROGEN 44.4 mg/dL (7-18); CALCIUM 8.6 mg/dL (8.5-10.1); MAGNESIUM 2.4 mg/dL (1.8-2.4)
[2021-03-13 14:36] LABS: CREATININE 2.1 mg/dL (0.55-1.3)
[2021-03-13] MEDS ORDERED: FUROSEMIDE 40 MG/4 ML INJECTABLE VIAL IVPUSH ONE (14:36)
[2021-03-13 14:38] LABS: BILIRUBIN,TOTAL 0.4 mg/dL (0.2-1); TOT PROT 7.9 g/dl (6.4-8.2)
[2021-03-13] MEDS ORDERED: FUROSEMIDE 40 MG/4 ML INJECTABLE VIAL ONE (14:54)
[2021-03-13 15:39] LABS: CALCIUM 8.2 mg/dL (8.5-10.1)
[2021-03-13 15:40] LABS: BLOOD UREA NITROGEN 42.4 mg/dL (7-18)
[2021-03-13 15:45] LABS: BILIRUBIN,TOTAL 0.3 mg/dL (0.2-1); TOT PROT 7.2 g/dl (6.4-8.2)
[2021-03-13 16:15] LABS: N-TERMINAL BNP 5579.6 pg/ml (5-125)
[2021-03-13] MEDS: INSULIN SLIDING SCALE (NOVOLOG) 1 VIAL SQ SCH ×2 (16:43→21:04)
[2021-03-13] MEDS ORDERED: ACETAMINOPHEN 325 MG TABLET (FP) PO PRN (18:46)
[2021-03-13] MEDS ORDERED: ONDANSETRON 4 MG/2 ML VIAL IVPUSH PRN (20:01)
[2021-03-13] MEDS: HEPARIN NA (PORCINE) 5,000 UNITS/ML 1ML VIAL SQ SCH (21:05)
[2021-03-13] MEDS: METOPROLOL TARTRATE 50 MG TABLET (FP) PO SCH (21:05)
[2021-03-13] MEDS ORDERED: ROSUVASTATIN CA 20 MG TABLET (FP) PO SCH (22:00)
[2021-03-14] MEDS: HEPARIN NA (PORCINE) 5,000 UNITS/ML 1ML VIAL SQ SCH ×3 (05:55→21:08)
[2021-03-14] MEDS: INSULIN SLIDING SCALE (NOVOLOG) 1 VIAL SQ SCH ×4 (05:59→21:45)
[2021-03-14] MEDS ORDERED: FUROSEMIDE 40 MG TABLET (FP) PO SCH (06:00)
[2021-03-14] MEDS ORDERED: INSULIN SLIDING SCALE (NOVOLOG) 1 VIAL SQ SCH (07:00)
[2021-03-14 08:14] LABS: HEMATOCRIT 35.2 % (35.4-49); HEMOGLOBIN 11.7 GM/dL (11.7-16.9); MCH 27.6 pg (25.7-33.7); MCHC 33.3 g/dl (32.0-35.9); MEAN PLT VOLUME 9.2 fl (7.5-11.1); PLATELET COUNT 220 10^3/uL (134-434); RBC 4.24 M/mm3 (4.00-5.60); RDW 18.7 % (11.9-15.9); WHITE BLOOD COUNT 9.3 K/mm3 (4.0-10.0)
[2021-03-14 08:28] LABS: ALBUMIN 2.9 g/dl (3.4-5.0); CALCIUM 8.4 mg/dL (8.5-10.1)
[2021-03-14 08:29] LABS: BLOOD UREA NITROGEN 45.5 mg/dL (7-18); MAGNESIUM 2.5 mg/dL (1.8-2.4)
[2021-03-14 08:31] LABS: CREATININE 2.2 mg/dL (0.55-1.3)
[2021-03-14 08:32] LABS: PHOSPHOROUS 3.6 mg/dL (2.5-4.9)
[2021-03-14 08:33] LABS: BILIRUBIN,TOTAL 0.3 mg/dL (0.2-1); TOT PROT 7.1 g/dl (6.4-8.2)
[2021-03-14] MEDS ORDERED: PATIENT'S OWN MEDICATION (NON-FORMULARY) (Losartan Potassium [Losartan Potassium] 100 MG T PO SCH (10:00)
[2021-03-14] MEDS ORDERED: PATIENT'S OWN MEDICATION (NON-FORMULARY) (Insulin Degludec [Tresiba Flextouch U-100] 100 U SQ SCH (10:00)
[2021-03-14] MEDS: METOPROLOL TARTRATE 50 MG TABLET (FP) PO SCH ×2 (10:52→21:11)
[2021-03-14] MEDS: ASPIRIN 81 MG CHEWABLE TABLETS PO SCH (10:52)
[2021-03-14] MEDS: amLODIPine BESYLATE 10 MG TABLET (FP) PO SCH (10:52)
[2021-03-14] MEDS ORDERED: INSULIN (NOVOLOG) ASPART 100 UNITS/ML 10ML VIAL ONE ×2 (10:56→21:40)
[2021-03-14] MEDS ORDERED: ROSUVASTATIN CA 40 MG TABLET PO SCH (13:15)
[2021-03-14] MEDS: FUROSEMIDE 40 MG/4 ML INJECTABLE VIAL IVPUSH SCH (15:00)
[2021-03-14] MEDS: ATORVASTATIN CA 80 MG TABLET (FP) PO SCH (21:11)
[2021-03-15] MEDS: FUROSEMIDE 40 MG/4 ML INJECTABLE VIAL IVPUSH SCH ×2 (05:54→13:39)
[2021-03-15] MEDS: HEPARIN NA (PORCINE) 5,000 UNITS/ML 1ML VIAL SQ SCH ×3 (05:54→21:08)
[2021-03-15] MEDS: INSULIN SLIDING SCALE (NOVOLOG) 1 VIAL SQ SCH ×4 (06:08→21:12)
[2021-03-15 08:19] LABS: HEMATOCRIT 37.5 % (35.4-49); HEMOGLOBIN 12.5 GM/dL (11.7-16.9); MCH 27.6 pg (25.7-33.7); MCHC 33.4 g/dl (32.0-35.9); MEAN CELL VOLUME 82.8 fl (80-96); MEAN PLT VOLUME 9.6 fl (7.5-11.1); PLATELET COUNT 263 10^3/uL (134-434); RBC 4.54 M/mm3 (4.00-5.60); RDW 19.1 % (11.9-15.9); WHITE BLOOD COUNT 9.9 K/mm3 (4.0-10.0)
[2021-03-15 08:35] LABS: CALCIUM 8.8 mg/dL (8.5-10.1)
[2021-03-15 08:36] LABS: ALBUMIN 3.2 g/dl (3.4-5.0); BLOOD UREA NITROGEN 53.6 mg/dL (7-18)
[2021-03-15 08:39] LABS: CREATININE 2.3 mg/dL (0.55-1.3)
[2021-03-15 08:40] LABS: BILIRUBIN,TOTAL 0.4 mg/dL (0.2-1)
[2021-03-15] MEDS: METOPROLOL TARTRATE 50 MG TABLET (FP) PO SCH ×2 (09:10→21:08)
[2021-03-15] MEDS: amLODIPine BESYLATE 10 MG TABLET (FP) PO SCH (09:10)
[2021-03-15] MEDS: ASPIRIN 81 MG CHEWABLE TABLETS PO SCH (09:10)
[2021-03-15] MEDS ORDERED: INSULIN (NOVOLOG) ASPART 100 UNITS/ML 10ML VIAL ONE (11:57)
[2021-03-15 17:27] VITALS: BMI 33.2
[2021-03-15] MEDS: ATORVASTATIN CA 80 MG TABLET (FP) PO SCH (21:09)
[2021-03-16] MEDS: HEPARIN NA (PORCINE) 5,000 UNITS/ML 1ML VIAL SQ SCH ×3 (06:16→21:10)
[2021-03-16] MEDS: FUROSEMIDE 40 MG/4 ML INJECTABLE VIAL IVPUSH SCH ×2 (06:16→13:10)
[2021-03-16] MEDS: INSULIN SLIDING SCALE (NOVOLOG) 1 VIAL SQ SCH ×4 (06:22→21:10)
[2021-03-16] MEDS: METOPROLOL TARTRATE 50 MG TABLET (FP) PO SCH ×2 (09:21→21:10)
[2021-03-16] MEDS: ASPIRIN 81 MG CHEWABLE TABLETS PO SCH (09:21)
[2021-03-16] MEDS: amLODIPine BESYLATE 10 MG TABLET (FP) PO SCH (09:21)
[2021-03-16 09:51] LABS: HEMATOCRIT 35.1 % (35.4-49); HEMOGLOBIN 11.7 GM/dL (11.7-16.9); MCH 27.3 pg (25.7-33.7); MCHC 33.2 g/dl (32.0-35.9); MEAN CELL VOLUME 82.3 fl (80-96); MEAN PLT VOLUME 9.6 fl (7.5-11.1); PLATELET COUNT 226 10^3/uL (134-434); RBC 4.27 M/mm3 (4.00-5.60); RDW 19.1 % (11.9-15.9); WHITE BLOOD COUNT 8.9 K/mm3 (4.0-10.0)
[2021-03-16 10:13] LABS: CALCIUM 8.6 mg/dL (8.5-10.1)
[2021-03-16 10:17] LABS: CREATININE 2.5 mg/dL (0.55-1.3)
[2021-03-16 10:19] LABS: BILIRUBIN,TOTAL 0.7 mg/dL (0.2-1); TOT PROT 7.3 g/dl (6.4-8.2)
[2021-03-16] MEDS ORDERED: INSULIN (NOVOLOG) ASPART 100 UNITS/ML 10ML VIAL ONE (20:41)
[2021-03-16] MEDS: ATORVASTATIN CA 80 MG TABLET (FP) PO SCH (21:10)
[2021-03-17] MEDS: FUROSEMIDE 40 MG/4 ML INJECTABLE VIAL IVPUSH SCH ×2 (06:13→13:33)
[2021-03-17] MEDS: HEPARIN NA (PORCINE) 5,000 UNITS/ML 1ML VIAL SQ SCH ×3 (06:13→21:17)
[2021-03-17] MEDS: INSULIN SLIDING SCALE (NOVOLOG) 1 VIAL SQ SCH ×4 (06:14→21:18)
[2021-03-17] MEDS: METOPROLOL TARTRATE 50 MG TABLET (FP) PO SCH ×2 (09:12→21:17)
[2021-03-17] MEDS: amLODIPine BESYLATE 10 MG TABLET (FP) PO SCH (09:12)
[2021-03-17] MEDS: ASPIRIN 81 MG CHEWABLE TABLETS PO SCH (09:12)
[2021-03-17 09:42] LABS: BLOOD UREA NITROGEN 57.8 mg/dL (7-18); CALCIUM 8.3 mg/dL (8.5-10.1); MAGNESIUM 2.4 mg/dL (1.8-2.4)
[2021-03-17 09:44] LABS: CREATININE 2.5 mg/dL (0.55-1.3)
[2021-03-17 09:46] LABS: PHOSPHOROUS 3.8 mg/dL (2.5-4.9)
[2021-03-17] MEDS ORDERED: INSULIN (NOVOLOG) ASPART 100 UNITS/ML 10ML VIAL ONE (21:12)
[2021-03-17] MEDS: ATORVASTATIN CA 80 MG TABLET (FP) PO SCH (21:17)
[2021-03-18] MEDS: INSULIN SLIDING SCALE (NOVOLOG) 1 VIAL SQ SCH (06:21)
[2021-03-18] MEDS: FUROSEMIDE 40 MG/4 ML INJECTABLE VIAL IVPUSH SCH (06:21)
[2021-03-18] MEDS: HEPARIN NA (PORCINE) 5,000 UNITS/ML 1ML VIAL SQ SCH (06:21)
[2021-03-18 06:46] VITALS: BP 159/87; PULSE 63; TEMP 97.7
[2021-03-18] MEDS: METOPROLOL TARTRATE 50 MG TABLET (FP) PO SCH (09:03)
[2021-03-18] MEDS: ASPIRIN 81 MG CHEWABLE TABLETS PO SCH (09:03)
[2021-03-18] MEDS: amLODIPine BESYLATE 10 MG TABLET (FP) PO SCH (09:04)
[2021-03-18 10:09] LABS: HEMATOCRIT 34.1 % (35.4-49); HEMOGLOBIN 11.4 GM/dL (11.7-16.9); MCH 27.4 pg (25.7-33.7); MCHC 33.4 g/dl (32.0-35.9); MEAN CELL VOLUME 82.2 fl (80-96); MEAN PLT VOLUME 9.5 fl (7.5-11.1); PLATELET COUNT 216 10^3/uL (134-434); RBC 4.15 M/mm3 (4.00-5.60); RDW 19.1 % (11.9-15.9); WHITE BLOOD COUNT 8.5 K/mm3 (4.0-10.0)
[2021-03-18 10:36] LABS: BLOOD UREA NITROGEN 60.3 mg/dL (7-18); CALCIUM 8.5 mg/dL (8.5-10.1); MAGNESIUM 2.4 mg/dL (1.8-2.4)
[2021-03-18 10:39] LABS: PHOSPHOROUS 3.8 mg/dL (2.5-4.9)
[2021-03-18 10:40] LABS: CREATININE 2.4 mg/dL (0.55-1.3)
== END 2021-03-18 14:03 | disposition home or self-care (01) | DRG 291 ==
LOC: JER 11:36 → JERBED 15:02 → J8W 17:27
PROVIDERS: ADMIT Internal Medicine; ATTEND Internal Medicine
DX: I13.0 Hypertensive heart and chronic kidney disease with heart failure and stage 1 through stage 4 chronic kidney disease, or unspecified chronic kidney disease (principal); I50.43 Acute on chronic combined systolic (congestive) and diastolic (congestive) heart failure; J98.11 Atelectasis; N17.9 Acute kidney failure, unspecified; I25.10 Atherosclerotic heart disease of native coronary artery without angina pectoris; Z95.1 Presence of aortocoronary bypass graft; E78.5 Hyperlipidemia, unspecified; E11.22 Type 2 diabetes mellitus with diabetic chronic kidney disease; Z79.4 Long term (current) use of insulin; K76.1 Chronic passive congestion of liver; N18.30 Chronic kidney disease, stage 3 unspecified; I25.2 Old myocardial infarction; R11.2 Nausea with vomiting, unspecified; R74.01 Elevation of levels of liver transaminase levels; I35.0 Nonrheumatic aortic (valve) stenosis; N40.0 Benign prostatic hyperplasia without lower urinary tract symptoms
CPT/HCPCS: 36415; 71045-TC-FY; 71046-TC-FY; 76705-TC; 80048; 80053; 82550; 82962; 83690; 83735; 83880; 84100; 84443; 84484; 85025; 85027; 86705; 86706; 86707; 86708; 87517; 87902; 93005; 93010; 94010; 97116-GP; 97161-GP; 99285-25; C9803; J1644; U0003; U0005

== ENCOUNTER 2021-08-14 14:30 | Inpatient (IN) | payer OTHER ==
[~2021-08-14 14:30] MED LIST changes: -ERTAPENEM SODIUM 1 GM in SODIUM CHLORIDE 50 ML IVPB ONE; +VANCOMYCIN 1 GRAM (PRE-DOCKED) 1,000 MG/250 ML BAG IVPB SCH
[2021-08-14] MEDS ORDERED: PIPERACILLIN/TAZOB 4.5 GM 4.5 GM in DEXTROSE 5%-WATER 100 ML IVPB ONE (15:28)
[2021-08-14] MEDS ORDERED: VANCOMYCIN 1 GM in D5W (PRE-DOCKED) 1,000 MG/250 ML IVPB ONE (15:28)
[2021-08-14] MEDS ORDERED: SODIUM CHLORIDE 0.9% 500 ML INFUS.BAG IV ONE ×2 (15:32→17:27)
[2021-08-14] MEDS ORDERED: ACETAMINOPHEN 1000 MG/100 ML BAG IVPB ONE (15:33)
[2021-08-14] MEDS ORDERED: VANCOMYCIN 1 GRAM (PRE-DOCKED) 1,000 MG/250 ML BAG IVPB ONE (16:26)
[2021-08-14] MEDS ORDERED: PIPERACILLIN/TAZOB 4.5 GM 4.5 GM/100 ML BAG IVPB ONE (16:26)
[2021-08-14 16:55] LABS: BASO % 1.5 % (0-2.0); EOS % 0.1 % (0-4.5); HEMATOCRIT 36.1 % (35.4-49); HEMOGLOBIN 11.9 GM/dL (11.7-16.9); MCH 27.8 pg (25.7-33.7); MCHC 32.9 g/dl (32.0-35.9); MEAN CELL VOLUME 84.5 fl (80-96); MEAN PLT VOLUME 10.4 fl (7.5-11.1); MONO % 6.5 % (3.8-10.2); NEUT % 88.9 % (42.8-82.8); PLATELET COUNT 270 10^3/uL (134-434); RBC 4.27 M/mm3 (4.00-5.60); RDW 15.9 % (11.9-15.9); WHITE BLOOD COUNT 19.9 K/mm3 (4.0-10.0)
[2021-08-14 17:04] LABS: INR 1.03 (0.83-1.09); PROTHROMBIN TIME (PATIENT) 11.9 SEC (9.7-13.0)
[2021-08-14 17:05] LABS: CHLORIDE 90 mmol/L (98-107); SODIUM 123 mmol/L (136-145)
[2021-08-14 17:07] LABS: ACTIVATED PTT 29.4 SECONDS (25.2-36.5); ALBUMIN 2.5 g/dl (3.4-5.0); CALCIUM 8.3 mg/dL (8.5-10.1); CO2 25 mmol/L (21-32)
[2021-08-14 17:08] LABS: BLOOD UREA NITROGEN 43.9 mg/dL (7-18); MAGNESIUM 2.3 mg/dL (1.8-2.4)
[2021-08-14 17:11] LABS: CREATININE 2.3 mg/dL (0.55-1.3); SGOT/AST 79 U/L (15-37); SGPT/ALT 33 U/L (13-61)
[2021-08-14 17:12] LABS: BILIRUBIN,TOTAL 0.8 mg/dL (0.2-1); TOT PROT 7.7 g/dl (6.4-8.2)
[2021-08-14 17:13] LABS: ALK PHOS 125 U/L (45-117)
[2021-08-14 17:33] LABS: ANION GAP 8 MMOL/L (8-16); GLUCOSE,RANDOM 493 mg/dL (74-106)
[2021-08-14] MEDS ORDERED: INSULIN (NOVOLOG) ASPART 100 UNITS/ML 10ML VIAL SQ ONE (17:45)
[2021-08-14 17:48] LABS: ERYTHROCYTE SEDIMENTATION RATE 89 mm/hr (0-20)
[2021-08-14] MEDS ORDERED: ASPIRIN 81 MG CHEWABLE TABLETS PO ONE ×2 (18:22→18:36)
[2021-08-14 18:23] LABS: VENOUS BASE EXCESS -1.2 mmol/L (-2-2); VENOUS O2 SATURATION 73.8 % (70-80); VENOUS PCO2 36.3 mmHg (38-52); VENOUS PH 7.416 (7.310-7.410)
[2021-08-14] MEDS ORDERED: ASPIRIN 81 MG CHEWABLE TABLETS ONE (18:42)
[2021-08-14] MEDS ORDERED: ACETAMINOPHEN INJECTION 100 ML IVPB ONE (18:58)
[2021-08-14] MEDS ORDERED: ACETAMINOPHEN 325 MG TABLET (FP) PO PRN (21:04)
[2021-08-14] MEDS: INSULIN SLIDING SCALE (NOVOLOG) 1 VIAL SQ SCH (23:42)
[2021-08-14] MEDS ORDERED: METOPROLOL TARTRATE 50 MG TABLET (FP) ONE (23:43)
[2021-08-14] MEDS: METOPROLOL TARTRATE 50 MG TABLET (FP) PO SCH (23:49)
[2021-08-15 00:23] LABS: EPI CELLS 2 /uL (0-25.1); HYALINE CASTS 1 /uL (0-3.1); PH,URINE 6.5 (5.0-8.0); URINE APPEARANCE CLEAR; URINE BACTERIA 1 /uL (0-1359); URINE BILIRUBIN NEGATIVE (NEGATIVE); URINE COLOR YELLOW; URINE GLUCOSE (UA) 3+ (NEGATIVE); URINE KETONE NEGATIVE (NEGATIVE); URINE LEUK ESTERASE NEGATIVE (NEGATIVE); URINE NITRITE NEGATIVE (NEGATIVE); URINE PROTEIN 3+ (NEGATIVE); URINE RBC 14 /uL (0-23.9); URINE UROBILINOGEN 0.2 mg/dL (0.2-1.0); URINE WBC 10 /uL (0-25.8)
[2021-08-15] MEDS ORDERED: MEROPENEM 500 MG VIAL (RESTRICTED TO ID) IVPB ONE ×2 (01:25→08:45)
[2021-08-15] MEDS: MEROPENEM 500 MG in DEXTROSE 5%-WATER 100 ML IVPB SCH ×3 (01:33→13:26)
[2021-08-15 02:39] LABS: CHLORIDE 98 mmol/L (98-107); SODIUM 133 mmol/L (136-145)
[2021-08-15 02:41] LABS: ANION GAP 7 MMOL/L (8-16); BLOOD UREA NITROGEN 37.4 mg/dL (7-18); CALCIUM 8.3 mg/dL (8.5-10.1); CO2 28 mmol/L (21-32)
[2021-08-15 02:42] LABS: GLUCOSE,RANDOM 103 mg/dL (74-106)
[2021-08-15] MEDS ORDERED: HEPARIN NA (PORCINE) 5,000 UNITS/ML 1ML VIAL IVPUSH PRN ×2 (03:35)
[2021-08-15] MEDS ORDERED: HEPARIN NA (PORCINE) 5,000 UNITS/ML 1ML VIAL IVPUSH ONE (03:35)
[2021-08-15] MEDS ORDERED: VANCOMYCIN 1 GRAM (PRE-DOCKED) 1,000 MG/250 ML BAG IVPB ONE (03:54)
[2021-08-15] MEDS: ATORVASTATIN CA 40 MG TABLET (FP) PO SCH ×2 (04:01→22:09)
[2021-08-15] MEDS: CLOPIDOGREL BISULFATE 75 MG TABLET (FP) PO SCH ×2 (04:01→09:03)
[2021-08-15] MEDS: HEPARIN - 25,000 UNIT in SODIUM CHLORIDE 495 ML IV SCH (04:26)
[2021-08-15] MEDS ORDERED: VANCOMYCIN 1,000 MG in DEXTROSE 5%-WATER - 250 ML IVPB SCH (05:00)
[2021-08-15] MEDS ORDERED: VANCOMYCIN 1 GRAM (PRE-DOCKED) 1,000 MG/250 ML BAG IVPB SCH (05:00)
[2021-08-15 07:13] LABS: BASO % 0.6 % (0-2.0); EOS % 1.2 % (0-4.5); HEMOGLOBIN 11.9 GM/dL (11.7-16.9); LYMPH % 5.5 % (8-40); MCH 28.7 pg (25.7-33.7); MCHC 34.9 g/dl (32.0-35.9); MEAN CELL VOLUME 82.1 fl (80-96); MEAN PLT VOLUME 9.3 fl (7.5-11.1); MONO % 7.3 % (3.8-10.2); NEUT % 85.4 % (42.8-82.8); PLATELET COUNT 248 10^3/uL (134-434); RBC 4.14 M/mm3 (4.00-5.60); RDW 15.5 % (11.9-15.9); WHITE BLOOD COUNT 15.7 K/mm3 (4.0-10.0)
[2021-08-15 07:41] LABS: CALCIUM 8.4 mg/dL (8.5-10.1)
[2021-08-15 07:42] LABS: ALBUMIN 2.3 g/dl (3.4-5.0); BLOOD UREA NITROGEN 35.8 mg/dL (7-18); MAGNESIUM 2.4 mg/dL (1.8-2.4)
[2021-08-15 07:44] LABS: CREATININE 1.9 mg/dL (0.55-1.3)
[2021-08-15 07:45] LABS: BILIRUBIN,TOTAL 0.4 mg/dL (0.2-1); PHOSPHOROUS 3.5 mg/dL (2.5-4.9)
[2021-08-15 07:46] LABS: TOT PROT 6.8 g/dl (6.4-8.2)
[2021-08-15 07:50] LABS: N-TERMINAL BNP 11974.2 pg/ml (5-125)
[2021-08-15] MEDS: INSULIN SLIDING SCALE (NOVOLOG) 1 VIAL SQ SCH ×4 (07:59→22:08)
[2021-08-15] MEDS ORDERED: ASPIRIN 81 MG CHEWABLE TABLETS ONE (08:45)
[2021-08-15] MEDS ORDERED: METOPROLOL TARTRATE 50 MG TABLET (FP) ONE (08:45)
[2021-08-15] MEDS ORDERED: CLOPIDOGREL BISULFATE 75 MG TABLET (FP) ONE (08:45)
[2021-08-15] MEDS ORDERED: amLODIPine BESYLATE 5 MG TABLET (FP) ONE (08:45)
[2021-08-15] MEDS ORDERED: LOSARTAN POTASSIUM 50 MG TABLET ONE (08:45)
[2021-08-15] MEDS: ASPIRIN 81 MG CHEWABLE TABLETS PO SCH (09:03)
[2021-08-15] MEDS: METOPROLOL TARTRATE 50 MG TABLET (FP) PO SCH ×2 (09:03→22:11)
[2021-08-15] MEDS: LOSARTAN POTASSIUM 50 MG TABLET PO SCH (09:04)
[2021-08-15] MEDS: amLODIPine BESYLATE 5 MG TABLET (FP) PO SCH (09:04)
[2021-08-15] MEDS ORDERED: amLODIPine BESYLATE 10 MG TABLET (FP) PO SCH (10:00)
[2021-08-15] MEDS ORDERED: ROSUVASTATIN CA 10 MG TABLET PO SCH (10:00)
[2021-08-15] MEDS: VANCOMYCIN 1 GRAM (PRE-DOCKED) 1,000 MG/250 ML BAG IVPB SCH (12:00)
[2021-08-15] MEDS: PIPERACILLIN/TAZOB 2.25 GM 2.25 GM in DEXTROSE 5%-WATER - 50 ML IVPB SCH ×2 (13:27→17:15)
[2021-08-15] MEDS ORDERED: PIPERACILLIN/TAZOB 2.25 GM 2.25 GM/50 ML BAG IVPB ONE (17:14)
[2021-08-16] MEDS ORDERED: PIPERACILLIN/TAZOBACTAM 2.25 GM VIAL IVPB ONE ×3 (00:48→18:53)
[2021-08-16] MEDS ORDERED: DEXTROSE 5%-WATER - 50 ML IVPB ONE ×3 (00:49→18:53)
[2021-08-16] MEDS: PIPERACILLIN/TAZOB 2.25 GM 2.25 GM in DEXTROSE 5%-WATER - 50 ML IVPB SCH ×3 (01:18→18:49)
[2021-08-16] MEDS: INSULIN SLIDING SCALE (NOVOLOG) 1 VIAL SQ SCH ×4 (06:39→21:37)
[2021-08-16 09:38] LABS: BASO % 0.4 % (0-2.0); EOS % 0.5 % (0-4.5); HEMOGLOBIN 12.1 GM/dL (11.7-16.9); LYMPH % 5.4 % (8-40); MCH 27.8 pg (25.7-33.7); MCHC 32.7 g/dl (32.0-35.9); MEAN PLT VOLUME 9.6 fl (7.5-11.1); NEUT % 86.7 % (42.8-82.8); PLATELET COUNT 325 10^3/uL (134-434); RBC 4.35 M/mm3 (4.00-5.60); RDW 16.3 % (11.9-15.9)
[2021-08-16] MEDS: METOPROLOL TARTRATE 50 MG TABLET (FP) PO SCH ×2 (10:00→21:37)
[2021-08-16] MEDS: LOSARTAN POTASSIUM 50 MG TABLET PO SCH (10:00)
[2021-08-16] MEDS: CLOPIDOGREL BISULFATE 75 MG TABLET (FP) PO SCH (10:00)
[2021-08-16] MEDS: ASPIRIN 81 MG CHEWABLE TABLETS PO SCH (10:00)
[2021-08-16] MEDS: amLODIPine BESYLATE 5 MG TABLET (FP) PO SCH (10:00)
[2021-08-16 10:07] LABS: BLOOD UREA NITROGEN 44.2 mg/dL (7-18); CALCIUM 8.5 mg/dL (8.5-10.1)
[2021-08-16 10:11] LABS: CREATININE 2.6 mg/dL (0.55-1.3)
[2021-08-16] MEDS: VANCOMYCIN 1 GRAM (PRE-DOCKED) 1,000 MG/250 ML BAG IVPB SCH (12:41)
[2021-08-16] MEDS ORDERED: SODIUM CHLORIDE 1,000 ML IV SCH (14:00)
[2021-08-16] MEDS: HEPARIN - 25,000 UNIT in SODIUM CHLORIDE 495 ML IV SCH (18:44)
[2021-08-16] MEDS: ATORVASTATIN CA 40 MG TABLET (FP) PO SCH (21:37)
[2021-08-17] MEDS ORDERED: DEXTROSE 5%-WATER - 50 ML IVPB ONE ×3 (01:04→17:28)
[2021-08-17] MEDS ORDERED: PIPERACILLIN/TAZOBACTAM 2.25 GM VIAL IVPB ONE ×3 (01:04→17:28)
[2021-08-17] MEDS: PIPERACILLIN/TAZOB 2.25 GM 2.25 GM in DEXTROSE 5%-WATER - 50 ML IVPB SCH ×3 (01:26→18:16)
[2021-08-17] MEDS: INSULIN SLIDING SCALE (NOVOLOG) 1 VIAL SQ SCH ×4 (06:14→21:43)
[2021-08-17 08:03] LABS: BLOOD UREA NITROGEN 63.6 mg/dL (7-18); CALCIUM 7.9 mg/dL (8.5-10.1)
[2021-08-17 08:06] LABS: BASO % 0.3 % (0-2.0); CREATININE 3.7 mg/dL (0.55-1.3); EOS % 1.4 % (0-4.5); HEMATOCRIT 31.8 % (35.4-49); HEMOGLOBIN 10.3 GM/dL (11.7-16.9); LYMPH % 5.4 % (8-40); MCH 27.5 pg (25.7-33.7); MCHC 32.3 g/dl (32.0-35.9); MEAN CELL VOLUME 85.1 fl (80-96); MEAN PLT VOLUME 9.6 fl (7.5-11.1); MONO % 8.4 % (3.8-10.2); NEUT % 84.5 % (42.8-82.8); PLATELET COUNT 273 10^3/uL (134-434); RBC 3.74 M/mm3 (4.00-5.60); RDW 15.9 % (11.9-15.9); WHITE BLOOD COUNT 16.5 K/mm3 (4.0-10.0)
[2021-08-17] MEDS: CLOPIDOGREL BISULFATE 75 MG TABLET (FP) PO SCH (10:23)
[2021-08-17] MEDS: ASPIRIN 81 MG CHEWABLE TABLETS PO SCH (10:23)
[2021-08-17] MEDS: METOPROLOL TARTRATE 50 MG TABLET (FP) PO SCH ×2 (10:23→21:42)
[2021-08-17] MEDS: LOSARTAN POTASSIUM 50 MG TABLET PO SCH (12:07)
[2021-08-17] MEDS: amLODIPine BESYLATE 5 MG TABLET (FP) PO SCH (12:08)
[2021-08-17] MEDS ORDERED: HEPARIN NA (PORCINE) 5,000 UNITS/ML 1ML VIAL SQ SCH (14:00)
[2021-08-17] MEDS: ATORVASTATIN CA 40 MG TABLET (FP) PO SCH (21:42)
[2021-08-18] MEDS ORDERED: PIPERACILLIN/TAZOBACTAM 2.25 GM VIAL IVPB ONE ×3 (01:41→17:25)
[2021-08-18] MEDS ORDERED: DEXTROSE 5%-WATER - 50 ML IVPB ONE ×3 (01:42→17:26)
[2021-08-18] MEDS: PIPERACILLIN/TAZOB 2.25 GM 2.25 GM in DEXTROSE 5%-WATER - 50 ML IVPB SCH ×3 (02:05→17:31)
[2021-08-18] MEDS: INSULIN SLIDING SCALE (NOVOLOG) 1 VIAL SQ SCH ×4 (06:40→21:52)
[2021-08-18 07:28] LABS: HEMATOCRIT 32.9 % (35.4-49); HEMOGLOBIN 10.7 GM/dL (11.7-16.9); MCH 27.5 pg (25.7-33.7); MCHC 32.4 g/dl (32.0-35.9); MEAN CELL VOLUME 84.9 fl (80-96); MEAN PLT VOLUME 9.6 fl (7.5-11.1); PLATELET COUNT 270 10^3/uL (134-434); RBC 3.88 M/mm3 (4.00-5.60); RDW 16.5 % (11.9-15.9); WHITE BLOOD COUNT 17.4 K/mm3 (4.0-10.0)
[2021-08-18] MEDS: CLOPIDOGREL BISULFATE 75 MG TABLET (FP) PO SCH (11:24)
[2021-08-18] MEDS: METOPROLOL TARTRATE 50 MG TABLET (FP) PO SCH ×2 (11:26→21:52)
[2021-08-18] MEDS: ASPIRIN 81 MG CHEWABLE TABLETS PO SCH (11:26)
[2021-08-18] MEDS: amLODIPine BESYLATE 5 MG TABLET (FP) PO SCH (11:26)
[2021-08-18 12:31] LABS: ALBUMIN 2.3 g/dl (3.4-5.0)
[2021-08-18 12:34] LABS: CREATININE 4.7 mg/dL (0.55-1.3)
[2021-08-18 12:35] LABS: BILIRUBIN,TOTAL 0.4 mg/dL (0.2-1); TOT PROT 6.9 g/dl (6.4-8.2)
[2021-08-18] MEDS: ATORVASTATIN CA 40 MG TABLET (FP) PO SCH (21:52)
[2021-08-19] MEDS ORDERED: PIPERACILLIN/TAZOBACTAM 2.25 GM VIAL IVPB ONE ×3 (02:33→17:27)
[2021-08-19] MEDS ORDERED: DEXTROSE 5%-WATER - 50 ML IVPB ONE ×3 (02:33→17:27)
[2021-08-19] MEDS: PIPERACILLIN/TAZOB 2.25 GM 2.25 GM in DEXTROSE 5%-WATER - 50 ML IVPB SCH ×4 (03:00→17:31)
[2021-08-19] MEDS: INSULIN SLIDING SCALE (NOVOLOG) 1 VIAL SQ SCH ×4 (06:17→21:14)
[2021-08-19 07:29] LABS: BASO % 0.2 % (0-2.0); EOS % 0.3 % (0-4.5); HEMATOCRIT 32.8 % (35.4-49); HEMOGLOBIN 10.5 GM/dL (11.7-16.9); LYMPH % 4.1 % (8-40); MCH 27.1 pg (25.7-33.7); MCHC 32.1 g/dl (32.0-35.9); MEAN CELL VOLUME 84.3 fl (80-96); MEAN PLT VOLUME 9.6 fl (7.5-11.1); MONO % 6.6 % (3.8-10.2); NEUT % 88.8 % (42.8-82.8); PLATELET COUNT 267 10^3/uL (134-434); RBC 3.89 M/mm3 (4.00-5.60); RDW 16.2 % (11.9-15.9); WHITE BLOOD COUNT 17.6 K/mm3 (4.0-10.0)
[2021-08-19 07:47] LABS: BLOOD UREA NITROGEN 100.3 mg/dL (7-18); CALCIUM 8.1 mg/dL (8.5-10.1)
[2021-08-19 07:51] LABS: CREATININE 4.9 mg/dL (0.55-1.3)
[2021-08-19] MEDS ORDERED: REGADENOSON 0.4 MG/5 ML PRE-FILLED SYRINGE IVPUSH ONE ×2 (09:35→13:00)
[2021-08-19] MEDS: METOPROLOL TARTRATE 50 MG TABLET (FP) PO SCH ×3 (09:51→21:14)
[2021-08-19] MEDS: ASPIRIN 81 MG CHEWABLE TABLETS PO SCH ×2 (09:51→15:29)
[2021-08-19] MEDS: amLODIPine BESYLATE 5 MG TABLET (FP) PO SCH ×2 (09:52→15:29)
[2021-08-19] MEDS ORDERED: SODIUM CHLORIDE 1,000 ML IV STA (14:20)
[2021-08-19] MEDS: ATORVASTATIN CA 40 MG TABLET (FP) PO SCH (21:14)
[2021-08-20] MEDS ORDERED: PIPERACILLIN/TAZOBACTAM 2.25 GM VIAL IVPB ONE ×2 (01:10→09:39)
[2021-08-20] MEDS ORDERED: DEXTROSE 5%-WATER - 50 ML IVPB ONE ×2 (01:10→09:40)
[2021-08-20] MEDS: PIPERACILLIN/TAZOB 2.25 GM 2.25 GM in DEXTROSE 5%-WATER - 50 ML IVPB SCH ×2 (01:27→09:53)
[2021-08-20] MEDS: INSULIN SLIDING SCALE (NOVOLOG) 1 VIAL SQ SCH ×4 (06:25→21:32)
[2021-08-20 07:32] LABS: HEMATOCRIT 32.3 % (35.4-49); HEMOGLOBIN 10.6 GM/dL (11.7-16.9); MCH 27.7 pg (25.7-33.7); MCHC 32.8 g/dl (32.0-35.9); MEAN CELL VOLUME 84.3 fl (80-96); MEAN PLT VOLUME 9.5 fl (7.5-11.1); PLATELET COUNT 269 10^3/uL (134-434); RBC 3.83 M/mm3 (4.00-5.60); RDW 16.5 % (11.9-15.9); WHITE BLOOD COUNT 14.5 K/mm3 (4.0-10.0)
[2021-08-20 07:44] LABS: CALCIUM 7.6 mg/dL (8.5-10.1)
[2021-08-20 07:45] LABS: BLOOD UREA NITROGEN 102.4 mg/dL (7-18)
[2021-08-20 07:49] LABS: CREATININE 4.8 mg/dL (0.55-1.3)
[2021-08-20] MEDS: METOPROLOL TARTRATE 50 MG TABLET (FP) PO SCH ×2 (09:52→21:31)
[2021-08-20] MEDS: ASPIRIN 81 MG CHEWABLE TABLETS PO SCH (09:52)
[2021-08-20] MEDS: amLODIPine BESYLATE 5 MG TABLET (FP) PO SCH (09:53)
[2021-08-20] MEDS: INSULIN (LEVEMIR) 100 UNITS/ML UNITS SQ SCH ×2 (13:44→21:32)
[2021-08-20] MEDS: CEFAZOLIN 500 MG in DEXTROSE 5%-WATER - 50 ML IVPB SCH ×3 (14:42→21:45)
[2021-08-20] MEDS ORDERED: FUROSEMIDE 40 MG TABLET (FP) PO ONE (16:35)
[2021-08-20] MEDS: ATORVASTATIN CA 40 MG TABLET (FP) PO SCH (21:31)
[2021-08-21] MEDS: INSULIN SLIDING SCALE (NOVOLOG) 1 VIAL SQ SCH ×4 (06:15→21:17)
[2021-08-21] MEDS: INSULIN (LEVEMIR) 100 UNITS/ML UNITS SQ SCH ×2 (06:15→21:17)
[2021-08-21 07:32] LABS: HEMATOCRIT 32.7 % (35.4-49); MCH 28.4 pg (25.7-33.7); MCHC 33.8 g/dl (32.0-35.9); MEAN CELL VOLUME 84.3 fl (80-96); MEAN PLT VOLUME 9.2 fl (7.5-11.1); PLATELET COUNT 303 10^3/uL (134-434); RBC 3.87 M/mm3 (4.00-5.60); RDW 16.2 % (11.9-15.9); WHITE BLOOD COUNT 15.8 K/mm3 (4.0-10.0)
[2021-08-21 08:03] LABS: ALBUMIN 2.4 g/dl (3.4-5.0); BLOOD UREA NITROGEN 103.3 mg/dL (7-18)
[2021-08-21 08:06] LABS: BILIRUBIN,TOTAL 0.3 mg/dL (0.2-1); CREATININE 4.9 mg/dL (0.55-1.3); TOT PROT 7.2 g/dl (6.4-8.2)
[2021-08-21] MEDS: ASPIRIN 81 MG CHEWABLE TABLETS PO SCH (09:39)
[2021-08-21] MEDS: amLODIPine BESYLATE 5 MG TABLET (FP) PO SCH (09:39)
[2021-08-21] MEDS: CEFAZOLIN 500 MG in DEXTROSE 5%-WATER - 50 ML IVPB SCH ×2 (09:39→22:10)
[2021-08-21] MEDS: METOPROLOL TARTRATE 50 MG TABLET (FP) PO SCH ×2 (09:39→21:17)
[2021-08-21] MEDS ORDERED: FUROSEMIDE 40 MG TABLET (FP) PO ONE (13:39)
[2021-08-21] MEDS: ATORVASTATIN CA 40 MG TABLET (FP) PO SCH (21:17)
[2021-08-22] MEDS: INSULIN (LEVEMIR) 100 UNITS/ML UNITS SQ SCH ×2 (06:13→21:37)
[2021-08-22] MEDS: INSULIN SLIDING SCALE (NOVOLOG) 1 VIAL SQ SCH ×4 (06:13→21:37)
[2021-08-22 07:35] LABS: BASO % 0.2 % (0-2.0); EOS % 0.7 % (0-4.5); HEMATOCRIT 32.4 % (35.4-49); HEMOGLOBIN 10.9 GM/dL (11.7-16.9); LYMPH % 4.4 % (8-40); MCH 28.1 pg (25.7-33.7); MCHC 33.5 g/dl (32.0-35.9); MEAN CELL VOLUME 83.7 fl (80-96); MEAN PLT VOLUME 9.3 fl (7.5-11.1); MONO % 7.3 % (3.8-10.2); NEUT % 87.4 % (42.8-82.8); PLATELET COUNT 333 10^3/uL (134-434); RBC 3.86 M/mm3 (4.00-5.60); RDW 16.4 % (11.9-15.9); WHITE BLOOD COUNT 15.1 K/mm3 (4.0-10.0)
[2021-08-22 07:57] LABS: CALCIUM 8.2 mg/dL (8.5-10.1)
[2021-08-22 07:58] LABS: BLOOD UREA NITROGEN 100.2 mg/dL (7-18)
[2021-08-22 08:02] LABS: CREATININE 4.5 mg/dL (0.55-1.3)
[2021-08-22] MEDS: ASPIRIN 81 MG CHEWABLE TABLETS PO SCH (09:01)
[2021-08-22] MEDS: CEFAZOLIN 500 MG in DEXTROSE 5%-WATER - 50 ML IVPB SCH ×2 (10:57→21:22)
[2021-08-22] MEDS: METOPROLOL TARTRATE 50 MG TABLET (FP) PO SCH ×2 (11:22→21:24)
[2021-08-22] MEDS: amLODIPine BESYLATE 5 MG TABLET (FP) PO SCH (11:23)
[2021-08-22] MEDS ORDERED: MIDAZOLAM HCL 2 MG/2 ML SINGLE DOSE VIAL ONE (13:32)
[2021-08-22] MEDS ORDERED: PROPOFOL 20 ML ONE (13:32)
[2021-08-22] MEDS ORDERED: LIDOCAINE HCL 1%, 10 MG/ML (20ML VIAL) ONE (13:53)
[2021-08-22] MEDS ORDERED: HEPARIN NA (PORCINE) 5,000 UNITS/ML 1ML VIAL ONE ×2 (13:53→16:07)
[2021-08-22] MEDS ORDERED: ceFAZolin SODIUM 1 GM VIAL IVPB ONE (14:20)
[2021-08-22] MEDS ORDERED: LIDOCAINE HCL 1%, 10 MG/ML (20ML VIAL) SQ ONE (14:27)
[2021-08-22] MEDS ORDERED: HEPARIN NA (PORCINE) 5,000 UNITS/ML 1ML VIAL SQ ONE (14:28)
[2021-08-22] MEDS ORDERED: FUROSEMIDE 40 MG TABLET (FP) PO SCH (14:30)
[2021-08-22] MEDS ORDERED: INSULIN (LEVEMIR) 100 UNITS/ML UNITS SQ SCH (14:30)
[2021-08-22] MEDS ORDERED: ACETAMINOPHEN 325 MG TABLET (FP) PO PRN (15:34)
[2021-08-22] MEDS ORDERED: ceFAZolin SODIUM 1 GM VIAL ONE (16:02)
[2021-08-22] MEDS ORDERED: ONDANSETRON 4 MG/2 ML VIAL IVPUSH PRN (16:03)
[2021-08-22] MEDS ORDERED: oxyCODONE HCL 5 MG TABLET PO PRN (16:03)
[2021-08-22] MEDS ORDERED: LACTATED RINGERS SOLUTION 1,000 ML IV SCH (16:15)
[2021-08-22] MEDS ORDERED: ATORVASTATIN CA 40 MG TABLET (FP) PO SCH (22:00)
[2021-08-23] MEDS: INSULIN (LEVEMIR) 100 UNITS/ML UNITS SQ SCH ×2 (06:12→21:30)
[2021-08-23] MEDS: INSULIN SLIDING SCALE (NOVOLOG) 1 VIAL SQ SCH ×4 (06:12→21:33)
[2021-08-23 09:16] LABS: BASO % 0.6 % (0-2.0); EOS % 0.4 % (0-4.5); HEMATOCRIT 33.8 % (35.4-49); LYMPH % 4.8 % (8-40); MCH 27.3 pg (25.7-33.7); MCHC 32.7 g/dl (32.0-35.9); MEAN CELL VOLUME 83.6 fl (80-96); MONO % 6.5 % (3.8-10.2); NEUT % 87.7 % (42.8-82.8); PLATELET COUNT 370 10^3/uL (134-434); RBC 4.04 M/mm3 (4.00-5.60); WHITE BLOOD COUNT 15.2 K/mm3 (4.0-10.0)
[2021-08-23 09:53] LABS: CALCIUM 8.6 mg/dL (8.5-10.1)
[2021-08-23 09:54] LABS: BLOOD UREA NITROGEN 96.8 mg/dL (7-18)
[2021-08-23 09:57] LABS: CREATININE 4.2 mg/dL (0.55-1.3)
[2021-08-23] MEDS ORDERED: amLODIPine BESYLATE 10 MG TABLET (FP) PO SCH (10:00)
[2021-08-23] MEDS ORDERED: CLOPIDOGREL BISULFATE 75 MG TABLET (FP) PO SCH (10:00)
[2021-08-23] MEDS ORDERED: FUROSEMIDE 40 MG TABLET (FP) PO SCH (10:00)
[2021-08-23] MEDS: METOPROLOL TARTRATE 50 MG TABLET (FP) PO SCH ×2 (10:09→21:30)
[2021-08-23] MEDS: ASPIRIN 81 MG CHEWABLE TABLETS PO SCH ×2 (10:09→10:21)
[2021-08-23] MEDS: CEFAZOLIN 500 MG in DEXTROSE 5%-WATER - 50 ML IVPB SCH ×2 (10:10→21:55)
[2021-08-23] MEDS ORDERED: PROPOFOL 20 ML ONE (11:53)
[2021-08-23] MEDS ORDERED: LIDOCAINE HCL 1%, 10 MG/ML (20ML VIAL) ONE ×2 (11:55→12:48)
[2021-08-23] MEDS ORDERED: BUPIVACAINE HCL/PF 0.5% (5MG/ML) 10 ML VIAL ONE (11:55)
[2021-08-23] MEDS ORDERED: DEXAMETHASONE SOD PHOSPHATE 4 MG/1 ML VIAL ONE (11:55)
[2021-08-23] MEDS ORDERED: GENTAMICIN SO4 80 MG/2 ML VIAL ONE ×2 (11:56→12:41)
[2021-08-23] MEDS ORDERED: ONDANSETRON 4 MG/2 ML VIAL IVPUSH PRN ×2 (12:07→13:50)
[2021-08-23] MEDS ORDERED: BUPIVACAINE HCL/PF 0.5% (5MG/ML) 10 ML VIAL IJ ONE (12:35)
[2021-08-23] MEDS ORDERED: LIDOCAINE HCL 1%, 10 MG/ML (20ML VIAL) NR ONE ×2 (12:35→13:00)
[2021-08-23] MEDS ORDERED: MIDAZOLAM HCL 2 MG/2 ML SINGLE DOSE VIAL ONE (12:48)
[2021-08-23] MEDS ORDERED: THROMBIN (BOVINE) 5,000 UNIT VIAL TP ONE ×2 (12:56→13:00)
[2021-08-23] MEDS ORDERED: VANCOMYCIN 1,000 MG VIAL (RESTRICTED TO ID ONLY) ONE (13:03)
[2021-08-23] MEDS ORDERED: oxyCODONE HCL 5 MG TABLET PO PRN (13:50)
[2021-08-23] MEDS ORDERED: ACETAMINOPHEN 325 MG TABLET (FP) PO PRN (13:50)
[2021-08-23 17:24] LABS: BASO % 0.3 % (0-2.0); EOS % 0.6 % (0-4.5); HEMATOCRIT 32.1 % (35.4-49); HEMOGLOBIN 10.6 GM/dL (11.7-16.9); MCH 27.8 pg (25.7-33.7); MEAN CELL VOLUME 84.1 fl (80-96); MEAN PLT VOLUME 8.7 fl (7.5-11.1); NEUT % 85.1 % (42.8-82.8); PLATELET COUNT 366 10^3/uL (134-434); RBC 3.81 M/mm3 (4.00-5.60); RDW 16.4 % (11.9-15.9); WHITE BLOOD COUNT 16.7 K/mm3 (4.0-10.0)
[2021-08-23] MEDS: ATORVASTATIN CA 40 MG TABLET (FP) PO SCH (21:30)
[2021-08-24] MEDS: INSULIN (LEVEMIR) 100 UNITS/ML UNITS SQ SCH ×2 (06:16→21:59)
[2021-08-24] MEDS: INSULIN SLIDING SCALE (NOVOLOG) 1 VIAL SQ SCH ×4 (06:16→22:00)
[2021-08-24 08:27] LABS: HEMATOCRIT 30.4 % (35.4-49); HEMOGLOBIN 10.2 GM/dL (11.7-16.9); MCH 28.1 pg (25.7-33.7); MCHC 33.6 g/dl (32.0-35.9); MEAN CELL VOLUME 83.6 fl (80-96); MEAN PLT VOLUME 8.8 fl (7.5-11.1); PLATELET COUNT 293 10^3/uL (134-434); RBC 3.64 M/mm3 (4.00-5.60); RDW 16.8 % (11.9-15.9); WHITE BLOOD COUNT 14.5 K/mm3 (4.0-10.0)
[2021-08-24 08:43] LABS: BLOOD UREA NITROGEN 97.9 mg/dL (7-18); CALCIUM 7.9 mg/dL (8.5-10.1)
[2021-08-24 08:45] LABS: CREATININE 4.3 mg/dL (0.55-1.3)
[2021-08-24] MEDS: ASPIRIN 81 MG CHEWABLE TABLETS PO SCH (09:35)
[2021-08-24] MEDS: METOPROLOL TARTRATE 50 MG TABLET (FP) PO SCH ×2 (09:35→22:00)
[2021-08-24] MEDS: FUROSEMIDE 40 MG TABLET (FP) PO SCH (09:36)
[2021-08-24] MEDS: amLODIPine BESYLATE 10 MG TABLET (FP) PO SCH (09:36)
[2021-08-24] MEDS: CEFAZOLIN 500 MG in DEXTROSE 5%-WATER - 50 ML IVPB SCH ×2 (09:36→22:00)
[2021-08-24 09:45] LABS: ANISOCYTOSIS 2+; MACROCYTOSIS 1+; PLATELET ESTIMATE NORMAL
[2021-08-24] MEDS: ATORVASTATIN CA 40 MG TABLET (FP) PO SCH (22:00)
[2021-08-25] MEDS: INSULIN SLIDING SCALE (NOVOLOG) 1 VIAL SQ SCH ×4 (06:12→22:37)
[2021-08-25] MEDS: INSULIN (LEVEMIR) 100 UNITS/ML UNITS SQ SCH ×2 (08:00→22:36)
[2021-08-25] MEDS: CEFAZOLIN 500 MG in DEXTROSE 5%-WATER - 50 ML IVPB SCH ×2 (09:12→22:36)
[2021-08-25] MEDS: FUROSEMIDE 40 MG TABLET (FP) PO SCH (09:12)
[2021-08-25] MEDS: METOPROLOL TARTRATE 50 MG TABLET (FP) PO SCH ×2 (09:12→22:37)
[2021-08-25] MEDS: amLODIPine BESYLATE 10 MG TABLET (FP) PO SCH (09:12)
[2021-08-25] MEDS: ASPIRIN 81 MG CHEWABLE TABLETS PO SCH (09:12)
[2021-08-25 16:26] LABS: CALCIUM 7.8 mg/dL (8.5-10.1)
[2021-08-25 16:27] LABS: ALBUMIN 2.1 g/dl (3.4-5.0); BLOOD UREA NITROGEN 98.7 mg/dL (7-18)
[2021-08-25 16:30] LABS: CREATININE 4.2 mg/dL (0.55-1.3)
[2021-08-25 16:31] LABS: BILIRUBIN,TOTAL 0.2 mg/dL (0.2-1); TOT PROT 6.5 g/dl (6.4-8.2)
[2021-08-25] MEDS: ATORVASTATIN CA 40 MG TABLET (FP) PO SCH (22:37)
[2021-08-26] MEDS: INSULIN (LEVEMIR) 100 UNITS/ML UNITS SQ SCH ×2 (06:26→21:26)
[2021-08-26] MEDS: INSULIN SLIDING SCALE (NOVOLOG) 1 VIAL SQ SCH ×4 (06:27→21:27)
[2021-08-26 08:16] LABS: BASO % 0.6 % (0-2.0); EOS % 1.1 % (0-4.5); HEMOGLOBIN 9.5 GM/dL (11.7-16.9); LYMPH % 4.9 % (8-40); MCH 27.2 pg (25.7-33.7); MCHC 32.6 g/dl (32.0-35.9); MEAN CELL VOLUME 83.4 fl (80-96); MEAN PLT VOLUME 8.6 fl (7.5-11.1); NEUT % 87.4 % (42.8-82.8); PLATELET COUNT 311 10^3/uL (134-434); RBC 3.48 M/mm3 (4.00-5.60); RDW 16.4 % (11.9-15.9); WHITE BLOOD COUNT 13.2 K/mm3 (4.0-10.0)
[2021-08-26 08:37] LABS: ALBUMIN 2.2 g/dl (3.4-5.0); BLOOD UREA NITROGEN 97.4 mg/dL (7-18)
[2021-08-26 08:42] LABS: BILIRUBIN,TOTAL 0.3 mg/dL (0.2-1); TOT PROT 6.7 g/dl (6.4-8.2)
[2021-08-26] MEDS ORDERED: PIPERACILLIN/TAZOB 3.375 GM 3.375 GM in DEXTROSE 5%-WATER - 50 ML IVPB SCH (10:00)
[2021-08-26] MEDS: amLODIPine BESYLATE 10 MG TABLET (FP) PO SCH (10:38)
[2021-08-26] MEDS: FUROSEMIDE 40 MG TABLET (FP) PO SCH (10:38)
[2021-08-26] MEDS: ASPIRIN 81 MG CHEWABLE TABLETS PO SCH (10:38)
[2021-08-26] MEDS: METOPROLOL TARTRATE 50 MG TABLET (FP) PO SCH ×2 (10:38→21:26)
[2021-08-26] MEDS ORDERED: FUROSEMIDE 40 MG/4 ML INJECTABLE VIAL IVPUSH ONE (12:20)
[2021-08-26] MEDS ORDERED: PIPERACILLIN/TAZOBACTAM 2.25 GM VIAL IVPB ONE (16:16)
[2021-08-26] MEDS ORDERED: DEXTROSE 5%-WATER - 50 ML IVPB ONE (16:17)
[2021-08-26] MEDS: PIPERACILLIN/TAZOB 2.25 GM 2.25 GM in DEXTROSE 5%-WATER - 50 ML IVPB SCH (16:56)
[2021-08-26] MEDS: ATORVASTATIN CA 40 MG TABLET (FP) PO SCH (21:26)
[2021-08-27] MEDS ORDERED: DEXTROSE 5%-WATER - 50 ML IVPB ONE (00:55)
[2021-08-27] MEDS ORDERED: PIPERACILLIN/TAZOBACTAM 2.25 GM VIAL IVPB ONE (00:55)
[2021-08-27] MEDS: PIPERACILLIN/TAZOB 2.25 GM 2.25 GM in DEXTROSE 5%-WATER - 50 ML IVPB SCH (01:09)
[2021-08-27] MEDS: INSULIN SLIDING SCALE (NOVOLOG) 1 VIAL SQ SCH ×4 (06:06→21:51)
[2021-08-27] MEDS: INSULIN (LEVEMIR) 100 UNITS/ML UNITS SQ SCH ×2 (06:06→21:52)
[2021-08-27] MEDS ORDERED: SODIUM CHLORIDE NASAL SPRAY 44 ML BOTTLE NS PRN (06:10)
[2021-08-27 08:05] LABS: BASO % 0.4 % (0-2.0); EOS % 1.8 % (0-4.5); HEMATOCRIT 29.8 % (35.4-49); LYMPH % 5.6 % (8-40); MCHC 33.5 g/dl (32.0-35.9); MEAN CELL VOLUME 83.5 fl (80-96); MEAN PLT VOLUME 8.3 fl (7.5-11.1); NEUT % 85.2 % (42.8-82.8); PLATELET COUNT 347 10^3/uL (134-434); RBC 3.57 M/mm3 (4.00-5.60); RDW 17.1 % (11.9-15.9); WHITE BLOOD COUNT 12.4 K/mm3 (4.0-10.0)
[2021-08-27 08:21] LABS: CALCIUM 8.6 mg/dL (8.5-10.1)
[2021-08-27 08:23] LABS: ALBUMIN 2.5 g/dl (3.4-5.0)
[2021-08-27 08:25] LABS: CREATININE 3.8 mg/dL (0.55-1.3)
[2021-08-27 08:26] LABS: BILIRUBIN,TOTAL 0.3 mg/dL (0.2-1); TOT PROT 7.4 g/dl (6.4-8.2)
[2021-08-27] MEDS ORDERED: PIPERACILLIN/TAZOB 2.25 GM 2.25 GM in DEXTROSE 5%-WATER - 50 ML IVPB SCH (10:00)
[2021-08-27] MEDS ORDERED: DEXTROSE 5%-WATER 100 ML IVPB ONE (10:37)
[2021-08-27] MEDS ORDERED: cefTRIAXone SODIUM 1 GM VIAL ONE (10:37)
[2021-08-27] MEDS: METOPROLOL TARTRATE 50 MG TABLET (FP) PO SCH ×2 (10:39→21:52)
[2021-08-27] MEDS: ASPIRIN 81 MG CHEWABLE TABLETS PO SCH (10:39)
[2021-08-27] MEDS: amLODIPine BESYLATE 10 MG TABLET (FP) PO SCH (10:39)
[2021-08-27] MEDS: CEFTRIAXONE 2 GM in DEXTROSE 5%-WATER 100 ML IVPB SCH (10:39)
[2021-08-27] MEDS: FUROSEMIDE 40 MG TABLET (FP) PO SCH (10:41)
[2021-08-27] MEDS: TAMSULOSIN HCL 0.4 MG CAP PO SCH (13:25)
[2021-08-27] MEDS ORDERED: FUROSEMIDE 40 MG/4 ML INJECTABLE VIAL IVPUSH ONE (14:43)
[2021-08-27] MEDS: ATORVASTATIN CA 40 MG TABLET (FP) PO SCH (21:52)
[2021-08-28] MEDS: INSULIN (LEVEMIR) 100 UNITS/ML UNITS SQ SCH ×2 (06:35→21:42)
[2021-08-28] MEDS: INSULIN SLIDING SCALE (NOVOLOG) 1 VIAL SQ SCH ×4 (06:35→21:43)
[2021-08-28] MEDS: TAMSULOSIN HCL 0.4 MG CAP PO SCH (08:14)
[2021-08-28 08:29] LABS: BASO % 0.4 % (0-2.0); HEMATOCRIT 30.1 % (35.4-49); LYMPH % 5.5 % (8-40); MCH 27.5 pg (25.7-33.7); MCHC 33.1 g/dl (32.0-35.9); MEAN CELL VOLUME 83.1 fl (80-96); MEAN PLT VOLUME 8.2 fl (7.5-11.1); MONO % 6.7 % (3.8-10.2); NEUT % 86.4 % (42.8-82.8); PLATELET COUNT 309 10^3/uL (134-434); RBC 3.63 M/mm3 (4.00-5.60); RDW 17.4 % (11.9-15.9); WHITE BLOOD COUNT 10.4 K/mm3 (4.0-10.0)
[2021-08-28 08:54] LABS: BLOOD UREA NITROGEN 93.7 mg/dL (7-18); CALCIUM 8.2 mg/dL (8.5-10.1)
[2021-08-28 08:58] LABS: CREATININE 3.8 mg/dL (0.55-1.3)
[2021-08-28 12:26] LABS: BF WBC & OTHER NUCLEATED CELLS 685 /mm3
[2021-08-28] MEDS ORDERED: cefTRIAXone SODIUM 1 GM VIAL ONE (12:39)
[2021-08-28] MEDS ORDERED: DEXTROSE 5%-WATER 100 ML IVPB ONE (12:39)
[2021-08-28] MEDS: FUROSEMIDE 40 MG/4 ML INJECTABLE VIAL IVPUSH SCH ×2 (12:47→13:40)
[2021-08-28] MEDS: METOPROLOL TARTRATE 50 MG TABLET (FP) PO SCH ×2 (12:48→21:42)
[2021-08-28] MEDS: amLODIPine BESYLATE 10 MG TABLET (FP) PO SCH (12:48)
[2021-08-28] MEDS: CEFTRIAXONE 2 GM in DEXTROSE 5%-WATER 100 ML IVPB SCH (12:48)
[2021-08-28 13:02] LABS: BODY FLUID MACROPHAGES 60 %; BODY FLUID MESOTHELIAL 1 %
[2021-08-28] MEDS: ATORVASTATIN CA 40 MG TABLET (FP) PO SCH (21:42)
[2021-08-28] MEDS: MELATONIN 5 MG TABLETS PO PRN (22:07)
[2021-08-29] MEDS: INSULIN (LEVEMIR) 100 UNITS/ML UNITS SQ SCH ×2 (06:37→21:28)
[2021-08-29] MEDS: INSULIN SLIDING SCALE (NOVOLOG) 1 VIAL SQ SCH ×4 (06:37→21:27)
[2021-08-29] MEDS: FUROSEMIDE 40 MG/4 ML INJECTABLE VIAL IVPUSH SCH ×3 (06:38→14:08)
[2021-08-29] MEDS: TAMSULOSIN HCL 0.4 MG CAP PO SCH (08:37)
[2021-08-29] MEDS: amLODIPine BESYLATE 10 MG TABLET (FP) PO SCH (09:43)
[2021-08-29] MEDS: METOPROLOL TARTRATE 50 MG TABLET (FP) PO SCH ×2 (09:43→21:27)
[2021-08-29] MEDS: MULTIVITAMINS THER W-MINERALS COMBO TABLET (FP) PO SCH (09:43)
[2021-08-29 09:54] LABS: BASO % 0.6 % (0-2.0); EOS % 0.9 % (0-4.5); HEMATOCRIT 29.5 % (35.4-49); HEMOGLOBIN 9.8 GM/dL (11.7-16.9); LYMPH % 4.1 % (8-40); MCH 27.8 pg (25.7-33.7); MCHC 33.2 g/dl (32.0-35.9); MEAN CELL VOLUME 83.9 fl (80-96); MEAN PLT VOLUME 8.3 fl (7.5-11.1); MONO % 7.6 % (3.8-10.2); NEUT % 86.8 % (42.8-82.8); PLATELET COUNT 294 10^3/uL (134-434); RBC 3.52 M/mm3 (4.00-5.60); RDW 17.1 % (11.9-15.9); WHITE BLOOD COUNT 10.3 K/mm3 (4.0-10.0)
[2021-08-29 10:22] LABS: ALBUMIN 2.3 g/dl (3.4-5.0)
[2021-08-29 10:23] LABS: BLOOD UREA NITROGEN 96.3 mg/dL (7-18)
[2021-08-29 10:25] LABS: CREATININE 3.9 mg/dL (0.55-1.3)
[2021-08-29 10:27] LABS: BILIRUBIN,TOTAL 0.2 mg/dL (0.2-1); TOT PROT 6.7 g/dl (6.4-8.2)
[2021-08-29] MEDS ORDERED: cefTRIAXone SODIUM 1 GM VIAL ONE (10:42)
[2021-08-29] MEDS ORDERED: DEXTROSE 5%-WATER 100 ML IVPB ONE (10:42)
[2021-08-29] MEDS: CEFTRIAXONE 2 GM in DEXTROSE 5%-WATER 100 ML IVPB SCH (12:30)
[2021-08-29] MEDS: SODIUM ZIRCONIUM CYCLOSILICATE (LOKELMA) 5 GM PACKET PO SCH (12:30)
[2021-08-29] MEDS: ATORVASTATIN CA 40 MG TABLET (FP) PO SCH (21:27)
[2021-08-29] MEDS: MELATONIN 5 MG TABLETS PO PRN (21:27)
[2021-08-30] MEDS: FUROSEMIDE 40 MG/4 ML INJECTABLE VIAL IVPUSH SCH ×2 (06:12→14:05)
[2021-08-30] MEDS: INSULIN SLIDING SCALE (NOVOLOG) 1 VIAL SQ SCH ×4 (06:34→22:22)
[2021-08-30] MEDS: INSULIN (LEVEMIR) 100 UNITS/ML UNITS SQ SCH ×2 (06:59→22:21)
[2021-08-30 08:25] LABS: BASO % 0.4 % (0-2.0); EOS % 1.6 % (0-4.5); HEMATOCRIT 30.6 % (35.4-49); HEMOGLOBIN 10.4 GM/dL (11.7-16.9); LYMPH % 5.3 % (8-40); MCH 28.4 pg (25.7-33.7); MEAN CELL VOLUME 83.5 fl (80-96); MEAN PLT VOLUME 8.3 fl (7.5-11.1); MONO % 6.8 % (3.8-10.2); NEUT % 85.9 % (42.8-82.8); PLATELET COUNT 271 10^3/uL (134-434); RBC 3.66 M/mm3 (4.00-5.60); RDW 17.1 % (11.9-15.9); WHITE BLOOD COUNT 10.7 K/mm3 (4.0-10.0)
[2021-08-30 08:46] LABS: BLOOD UREA NITROGEN 99.2 mg/dL (7-18); CALCIUM 8.3 mg/dL (8.5-10.1)
[2021-08-30 08:48] LABS: CREATININE 3.8 mg/dL (0.55-1.3)
[2021-08-30] MEDS ORDERED: DEXTROSE 5%-WATER 100 ML IVPB ONE (09:46)
[2021-08-30] MEDS: amLODIPine BESYLATE 10 MG TABLET (FP) PO SCH (09:49)
[2021-08-30] MEDS: TAMSULOSIN HCL 0.4 MG CAP PO SCH (09:49)
[2021-08-30] MEDS: SODIUM ZIRCONIUM CYCLOSILICATE (LOKELMA) 5 GM PACKET PO SCH (09:50)
[2021-08-30] MEDS: METOPROLOL TARTRATE 50 MG TABLET (FP) PO SCH ×2 (09:51→22:19)
[2021-08-30] MEDS: MULTIVITAMINS THER W-MINERALS COMBO TABLET (FP) PO SCH (09:51)
[2021-08-30] MEDS: CEFTRIAXONE 2 GM in DEXTROSE 5%-WATER 100 ML IVPB SCH (09:52)
[2021-08-30 16:09] LABS: BODY FLUID ALBUMIN 0.9 g/dL (Not Estab.)
[2021-08-30] MEDS: ATORVASTATIN CA 40 MG TABLET (FP) PO SCH (22:19)
[2021-08-31] MEDS: FUROSEMIDE 40 MG/4 ML INJECTABLE VIAL IVPUSH SCH ×2 (06:21→13:08)
[2021-08-31] MEDS: INSULIN SLIDING SCALE (NOVOLOG) 1 VIAL SQ SCH ×4 (06:23→21:30)
[2021-08-31] MEDS: INSULIN (LEVEMIR) 100 UNITS/ML UNITS SQ SCH ×2 (06:31→21:30)
[2021-08-31 08:56] LABS: BASO % 0.5 % (0-2.0); EOS % 1.2 % (0-4.5); HEMATOCRIT 29.1 % (35.4-49); HEMOGLOBIN 9.7 GM/dL (11.7-16.9); LYMPH % 4.5 % (8-40); MCH 27.7 pg (25.7-33.7); MCHC 33.3 g/dl (32.0-35.9); MEAN CELL VOLUME 83.2 fl (80-96); MEAN PLT VOLUME 8.6 fl (7.5-11.1); MONO % 7.7 % (3.8-10.2); NEUT % 86.1 % (42.8-82.8); PLATELET COUNT 254 10^3/uL (134-434); RDW 17.4 % (11.9-15.9); WHITE BLOOD COUNT 9.7 K/mm3 (4.0-10.0)
[2021-08-31 09:12] LABS: CALCIUM 7.7 mg/dL (8.5-10.1)
[2021-08-31 09:14] LABS: BLOOD UREA NITROGEN 97.5 mg/dL (7-18)
[2021-08-31 09:15] LABS: CREATININE 3.6 mg/dL (0.55-1.3)
[2021-08-31] MEDS ORDERED: DEXTROSE 5%-WATER 100 ML IVPB ONE (09:42)
[2021-08-31] MEDS: TAMSULOSIN HCL 0.4 MG CAP PO SCH (09:44)
[2021-08-31] MEDS: METOPROLOL TARTRATE 50 MG TABLET (FP) PO SCH ×2 (09:44→21:29)
[2021-08-31] MEDS: SODIUM ZIRCONIUM CYCLOSILICATE (LOKELMA) 5 GM PACKET PO SCH ×2 (09:44→12:06)
[2021-08-31] MEDS: amLODIPine BESYLATE 10 MG TABLET (FP) PO SCH (09:44)
[2021-08-31] MEDS: MULTIVITAMINS THER W-MINERALS COMBO TABLET (FP) PO SCH (09:44)
[2021-08-31] MEDS: CEFTRIAXONE 2 GM in DEXTROSE 5%-WATER 100 ML IVPB SCH (09:44)
[2021-08-31] MEDS: HEPARIN NA (PORCINE) 5,000 UNITS/ML 1ML VIAL SQ SCH (21:29)
[2021-08-31] MEDS: MELATONIN 5 MG TABLETS PO PRN (21:29)
[2021-08-31] MEDS: ATORVASTATIN CA 40 MG TABLET (FP) PO SCH (21:29)
[2021-09-01] MEDS: FUROSEMIDE 40 MG/4 ML INJECTABLE VIAL IVPUSH SCH ×2 (06:49→13:03)
[2021-09-01] MEDS: INSULIN (LEVEMIR) 100 UNITS/ML UNITS SQ SCH ×2 (06:51→21:28)
[2021-09-01] MEDS: INSULIN SLIDING SCALE (NOVOLOG) 1 VIAL SQ SCH ×4 (06:51→21:28)
[2021-09-01 07:19] LABS: BASO % 0.6 % (0-2.0); EOS % 1.2 % (0-4.5); HEMATOCRIT 31.5 % (35.4-49); HEMOGLOBIN 10.3 GM/dL (11.7-16.9); LYMPH % 5.3 % (8-40); MCH 27.3 pg (25.7-33.7); MCHC 32.6 g/dl (32.0-35.9); MEAN CELL VOLUME 83.9 fl (80-96); MEAN PLT VOLUME 8.8 fl (7.5-11.1); MONO % 7.3 % (3.8-10.2); NEUT % 85.6 % (42.8-82.8); PLATELET COUNT 241 10^3/uL (134-434); RBC 3.75 M/mm3 (4.00-5.60); RDW 16.8 % (11.9-15.9); WHITE BLOOD COUNT 9.5 K/mm3 (4.0-10.0)
[2021-09-01 07:29] LABS: ALBUMIN 2.5 g/dl (3.4-5.0); CALCIUM 8.2 mg/dL (8.5-10.1); MAGNESIUM 2.5 mg/dL (1.8-2.4)
[2021-09-01 07:32] LABS: CREATININE 3.8 mg/dL (0.55-1.3)
[2021-09-01 07:34] LABS: BILIRUBIN,TOTAL 0.2 mg/dL (0.2-1); TOT PROT 7.3 g/dl (6.4-8.2)
[2021-09-01] MEDS ORDERED: DEXTROSE 5%-WATER 100 ML IVPB ONE (09:18)
[2021-09-01] MEDS: MULTIVITAMINS THER W-MINERALS COMBO TABLET (FP) PO SCH (09:23)
[2021-09-01] MEDS: CEFTRIAXONE 2 GM in DEXTROSE 5%-WATER 100 ML IVPB SCH (09:23)
[2021-09-01] MEDS: TAMSULOSIN HCL 0.4 MG CAP PO SCH (09:23)
[2021-09-01] MEDS: ASPIRIN 81 MG CHEWABLE TABLETS PO SCH (09:23)
[2021-09-01] MEDS: HEPARIN NA (PORCINE) 5,000 UNITS/ML 1ML VIAL SQ SCH ×2 (09:23→21:28)
[2021-09-01] MEDS: METOPROLOL TARTRATE 50 MG TABLET (FP) PO SCH ×2 (09:23→21:29)
[2021-09-01] MEDS: amLODIPine BESYLATE 10 MG TABLET (FP) PO SCH (09:23)
[2021-09-01] MEDS: ATORVASTATIN CA 40 MG TABLET (FP) PO SCH (21:29)
[2021-09-01] MEDS: MELATONIN 5 MG TABLETS PO PRN (21:29)
[2021-09-02] MEDS: INSULIN SLIDING SCALE (NOVOLOG) 1 VIAL SQ SCH ×4 (06:25→22:11)
[2021-09-02] MEDS: INSULIN (LEVEMIR) 100 UNITS/ML UNITS SQ SCH ×2 (06:29→22:11)
[2021-09-02] MEDS: FUROSEMIDE 40 MG/4 ML INJECTABLE VIAL IVPUSH SCH ×2 (06:30→13:07)
[2021-09-02 08:14] LABS: BASO % 0.7 % (0-2.0); EOS % 1.8 % (0-4.5); HEMATOCRIT 29.3 % (35.4-49); HEMOGLOBIN 9.8 GM/dL (11.7-16.9); LYMPH % 5.8 % (8-40); MCH 27.9 pg (25.7-33.7); MCHC 33.6 g/dl (32.0-35.9); MEAN PLT VOLUME 8.4 fl (7.5-11.1); MONO % 8.8 % (3.8-10.2); NEUT % 82.9 % (42.8-82.8); PLATELET COUNT 216 10^3/uL (134-434); RBC 3.53 M/mm3 (4.00-5.60); RDW 16.6 % (11.9-15.9); WHITE BLOOD COUNT 8.4 K/mm3 (4.0-10.0)
[2021-09-02 08:39] LABS: BLOOD UREA NITROGEN 88.3 mg/dL (7-18); MAGNESIUM 2.3 mg/dL (1.8-2.4)
[2021-09-02 08:41] LABS: CREATININE 3.5 mg/dL (0.55-1.3); PHOSPHOROUS 5.6 mg/dL (2.5-4.9)
[2021-09-02] MEDS ORDERED: DEXTROSE 5%-WATER 100 ML IVPB ONE (09:32)
[2021-09-02] MEDS: MULTIVITAMINS THER W-MINERALS COMBO TABLET (FP) PO SCH (09:35)
[2021-09-02] MEDS: amLODIPine BESYLATE 10 MG TABLET (FP) PO SCH (09:35)
[2021-09-02] MEDS: CEFTRIAXONE 2 GM in DEXTROSE 5%-WATER 100 ML IVPB SCH (09:35)
[2021-09-02] MEDS: ASPIRIN 81 MG CHEWABLE TABLETS PO SCH (09:35)
[2021-09-02] MEDS: METOPROLOL TARTRATE 50 MG TABLET (FP) PO SCH ×2 (09:35→22:12)
[2021-09-02] MEDS: TAMSULOSIN HCL 0.4 MG CAP PO SCH (09:35)
[2021-09-02] MEDS: HEPARIN NA (PORCINE) 5,000 UNITS/ML 1ML VIAL SQ SCH ×2 (09:36→22:11)
[2021-09-02 17:50] VITALS: BMI 27.1
[2021-09-02] MEDS: ATORVASTATIN CA 40 MG TABLET (FP) PO SCH (22:12)
[2021-09-03] MEDS: INSULIN (LEVEMIR) 100 UNITS/ML UNITS SQ SCH ×2 (06:30→21:36)
[2021-09-03] MEDS: INSULIN SLIDING SCALE (NOVOLOG) 1 VIAL SQ SCH ×4 (06:31→21:36)
[2021-09-03] MEDS: FUROSEMIDE 40 MG/4 ML INJECTABLE VIAL IVPUSH SCH ×2 (06:31→13:09)
[2021-09-03 08:51] LABS: BASO % 0.8 % (0-2.0); HEMATOCRIT 31.9 % (35.4-49); HEMOGLOBIN 10.4 GM/dL (11.7-16.9); LYMPH % 5.5 % (8-40); MCH 27.2 pg (25.7-33.7); MCHC 32.7 g/dl (32.0-35.9); MEAN CELL VOLUME 83.1 fl (80-96); MEAN PLT VOLUME 8.7 fl (7.5-11.1); MONO % 8.1 % (3.8-10.2); NEUT % 83.6 % (42.8-82.8); PLATELET COUNT 230 10^3/uL (134-434); RBC 3.83 M/mm3 (4.00-5.60); RDW 17.3 % (11.9-15.9); WHITE BLOOD COUNT 8.2 K/mm3 (4.0-10.0)
[2021-09-03] MEDS ORDERED: DEXTROSE 5%-WATER 100 ML IVPB ONE (09:09)
[2021-09-03 09:11] LABS: ALBUMIN 2.7 g/dl (3.4-5.0); BLOOD UREA NITROGEN 90.3 mg/dL (7-18); CALCIUM 8.6 mg/dL (8.5-10.1); MAGNESIUM 2.4 mg/dL (1.8-2.4)
[2021-09-03 09:14] LABS: PHOSPHOROUS 5.6 mg/dL (2.5-4.9)
[2021-09-03 09:15] LABS: CREATININE 3.2 mg/dL (0.55-1.3)
[2021-09-03 09:16] LABS: BILIRUBIN,TOTAL 0.2 mg/dL (0.2-1); TOT PROT 7.5 g/dl (6.4-8.2)
[2021-09-03] MEDS: CEFTRIAXONE 2 GM in DEXTROSE 5%-WATER 100 ML IVPB SCH (09:20)
[2021-09-03] MEDS: HEPARIN NA (PORCINE) 5,000 UNITS/ML 1ML VIAL SQ SCH ×2 (09:20→21:35)
[2021-09-03] MEDS: VITAMIN B COMP W-C 1 EA TABLET (NEPHRO-VITE) PO SCH (09:20)
[2021-09-03] MEDS: METOPROLOL TARTRATE 50 MG TABLET (FP) PO SCH ×2 (09:20→21:36)
[2021-09-03] MEDS: TAMSULOSIN HCL 0.4 MG CAP PO SCH (09:20)
[2021-09-03] MEDS: amLODIPine BESYLATE 10 MG TABLET (FP) PO SCH (09:20)
[2021-09-03] MEDS: ASPIRIN 81 MG CHEWABLE TABLETS PO SCH (09:20)
[2021-09-03] MEDS: ATORVASTATIN CA 40 MG TABLET (FP) PO SCH (21:36)
[2021-09-04] MEDS: FUROSEMIDE 40 MG/4 ML INJECTABLE VIAL IVPUSH SCH ×2 (06:02→13:47)
[2021-09-04] MEDS: INSULIN (LEVEMIR) 100 UNITS/ML UNITS SQ SCH ×2 (06:47→21:33)
[2021-09-04] MEDS: INSULIN SLIDING SCALE (NOVOLOG) 1 VIAL SQ SCH ×4 (06:47→21:33)
[2021-09-04] MEDS ORDERED: DEXTROSE 5%-WATER 100 ML IVPB ONE (09:06)
[2021-09-04] MEDS: HEPARIN NA (PORCINE) 5,000 UNITS/ML 1ML VIAL SQ SCH ×2 (09:09→21:32)
[2021-09-04] MEDS: METOPROLOL TARTRATE 50 MG TABLET (FP) PO SCH ×2 (09:09→21:32)
[2021-09-04] MEDS: VITAMIN B COMP W-C 1 EA TABLET (NEPHRO-VITE) PO SCH (09:09)
[2021-09-04] MEDS: ASPIRIN 81 MG CHEWABLE TABLETS PO SCH (09:09)
[2021-09-04] MEDS: amLODIPine BESYLATE 10 MG TABLET (FP) PO SCH (09:09)
[2021-09-04] MEDS: TAMSULOSIN HCL 0.4 MG CAP PO SCH (09:09)
[2021-09-04] MEDS: CEFTRIAXONE 2 GM in DEXTROSE 5%-WATER 100 ML IVPB SCH (09:09)
[2021-09-04 09:22] LABS: BASO % 0.8 % (0-2.0); EOS % 2.6 % (0-4.5); HEMATOCRIT 29.2 % (35.4-49); HEMOGLOBIN 9.8 GM/dL (11.7-16.9); LYMPH % 6.4 % (8-40); MCH 27.8 pg (25.7-33.7); MCHC 33.5 g/dl (32.0-35.9); MEAN PLT VOLUME 8.6 fl (7.5-11.1); MONO % 8.3 % (3.8-10.2); NEUT % 81.9 % (42.8-82.8); PLATELET COUNT 184 10^3/uL (134-434); RBC 3.51 M/mm3 (4.00-5.60); RDW 17.5 % (11.9-15.9); WHITE BLOOD COUNT 7.1 K/mm3 (4.0-10.0)
[2021-09-04 10:15] LABS: CALCIUM 8.2 mg/dL (8.5-10.1)
[2021-09-04 10:16] LABS: BLOOD UREA NITROGEN 80.9 mg/dL (7-18)
[2021-09-04 10:19] LABS: CREATININE 3.1 mg/dL (0.55-1.3)
[2021-09-04] MEDS ORDERED: METOLAZONE 2.5 MG TABLET (FP) PO ONE (11:02)
[2021-09-04] MEDS: ATORVASTATIN CA 40 MG TABLET (FP) PO SCH (21:32)
[2021-09-05] MEDS: FUROSEMIDE 40 MG/4 ML INJECTABLE VIAL IVPUSH SCH ×2 (05:58→13:04)
[2021-09-05] MEDS: INSULIN (LEVEMIR) 100 UNITS/ML UNITS SQ SCH ×2 (06:14→21:43)
[2021-09-05] MEDS: INSULIN SLIDING SCALE (NOVOLOG) 1 VIAL SQ SCH ×4 (06:15→21:44)
[2021-09-05] MEDS ORDERED: DEXTROSE 5%-WATER 100 ML IVPB ONE (08:49)
[2021-09-05] MEDS: amLODIPine BESYLATE 10 MG TABLET (FP) PO SCH (09:14)
[2021-09-05] MEDS: VITAMIN B COMP W-C 1 EA TABLET (NEPHRO-VITE) PO SCH (09:14)
[2021-09-05] MEDS: CEFTRIAXONE 2 GM in DEXTROSE 5%-WATER 100 ML IVPB SCH (09:14)
[2021-09-05] MEDS: TAMSULOSIN HCL 0.4 MG CAP PO SCH (09:14)
[2021-09-05] MEDS: ASPIRIN 81 MG CHEWABLE TABLETS PO SCH (09:14)
[2021-09-05] MEDS: METOPROLOL TARTRATE 50 MG TABLET (FP) PO SCH ×2 (09:14→21:44)
[2021-09-05] MEDS: HEPARIN NA (PORCINE) 5,000 UNITS/ML 1ML VIAL SQ SCH ×2 (09:14→21:43)
[2021-09-05 09:16] LABS: BASO % 1.1 % (0-2.0); EOS % 2.9 % (0-4.5); HEMOGLOBIN 9.9 GM/dL (11.7-16.9); LYMPH % 7.5 % (8-40); MCH 27.2 pg (25.7-33.7); MEAN CELL VOLUME 82.5 fl (80-96); MEAN PLT VOLUME 8.9 fl (7.5-11.1); MONO % 8.5 % (3.8-10.2); PLATELET COUNT 190 10^3/uL (134-434); RBC 3.63 M/mm3 (4.00-5.60); RDW 17.5 % (11.9-15.9); WHITE BLOOD COUNT 7.1 K/mm3 (4.0-10.0)
[2021-09-05 09:36] LABS: CALCIUM 8.2 mg/dL (8.5-10.1)
[2021-09-05 09:40] LABS: CREATININE 3.1 mg/dL (0.55-1.3)
[2021-09-05] MEDS: ATORVASTATIN CA 40 MG TABLET (FP) PO SCH (21:44)
[2021-09-06] MEDS: INSULIN SLIDING SCALE (NOVOLOG) 1 VIAL SQ SCH ×4 (06:22→21:07)
[2021-09-06] MEDS: INSULIN (LEVEMIR) 100 UNITS/ML UNITS SQ SCH ×2 (06:23→21:07)
[2021-09-06] MEDS: FUROSEMIDE 40 MG/4 ML INJECTABLE VIAL IVPUSH SCH ×2 (06:23→13:20)
[2021-09-06] MEDS: VITAMIN B COMP W-C 1 EA TABLET (NEPHRO-VITE) PO SCH (09:14)
[2021-09-06] MEDS: TAMSULOSIN HCL 0.4 MG CAP PO SCH (09:14)
[2021-09-06] MEDS: HEPARIN NA (PORCINE) 5,000 UNITS/ML 1ML VIAL SQ SCH ×2 (09:14→21:07)
[2021-09-06] MEDS: amLODIPine BESYLATE 10 MG TABLET (FP) PO SCH (09:14)
[2021-09-06] MEDS: METOPROLOL TARTRATE 50 MG TABLET (FP) PO SCH ×2 (09:14→21:06)
[2021-09-06] MEDS: ASPIRIN 81 MG CHEWABLE TABLETS PO SCH (09:14)
[2021-09-06] MEDS: COLLAGENASE CLOSTRIDIUM HIST. 30 GRAMS TUBE TP SCH (09:16)
[2021-09-06] MEDS: ATORVASTATIN CA 40 MG TABLET (FP) PO SCH (21:06)
[2021-09-07] MEDS: FUROSEMIDE 40 MG/4 ML INJECTABLE VIAL IVPUSH SCH ×2 (06:07→13:42)
[2021-09-07] MEDS: INSULIN SLIDING SCALE (NOVOLOG) 1 VIAL SQ SCH ×4 (06:08→21:39)
[2021-09-07] MEDS: INSULIN (LEVEMIR) 100 UNITS/ML UNITS SQ SCH ×2 (06:08→21:39)
[2021-09-07] MEDS: TAMSULOSIN HCL 0.4 MG CAP PO SCH (08:26)
[2021-09-07 08:32] LABS: HEMATOCRIT 28.7 % (35.4-49); HEMOGLOBIN 9.7 GM/dL (11.7-16.9); LYMPH % 8.8 % (8-40); MCH 27.8 pg (25.7-33.7); MCHC 33.9 g/dl (32.0-35.9); MEAN CELL VOLUME 81.8 fl (80-96); MEAN PLT VOLUME 8.6 fl (7.5-11.1); MONO % 10.9 % (3.8-10.2); NEUT % 75.3 % (42.8-82.8); PLATELET COUNT 167 10^3/uL (134-434); RBC 3.51 M/mm3 (4.00-5.60); RDW 17.2 % (11.9-15.9); WHITE BLOOD COUNT 6.3 K/mm3 (4.0-10.0)
[2021-09-07 08:49] LABS: CALCIUM 8.4 mg/dL (8.5-10.1)
[2021-09-07 08:50] LABS: ALBUMIN 2.6 g/dl (3.4-5.0); BLOOD UREA NITROGEN 88.1 mg/dL (7-18)
[2021-09-07 08:53] LABS: CREATININE 3.1 mg/dL (0.55-1.3)
[2021-09-07 08:55] LABS: BILIRUBIN,TOTAL 0.3 mg/dL (0.2-1)
[2021-09-07] MEDS: amLODIPine BESYLATE 10 MG TABLET (FP) PO SCH (09:43)
[2021-09-07] MEDS: METOPROLOL TARTRATE 50 MG TABLET (FP) PO SCH ×2 (09:43→21:38)
[2021-09-07] MEDS: ASPIRIN 81 MG CHEWABLE TABLETS PO SCH (09:43)
[2021-09-07] MEDS: VITAMIN B COMP W-C 1 EA TABLET (NEPHRO-VITE) PO SCH (09:43)
[2021-09-07] MEDS: HEPARIN NA (PORCINE) 5,000 UNITS/ML 1ML VIAL SQ SCH ×2 (09:43→21:38)
[2021-09-07] MEDS ORDERED: POTASSIUM CHLORIDE TABS 20 MEQ TABLET.ER (FP) PO ONE (10:00)
[2021-09-07] MEDS ORDERED: DEXTROSE 5%-WATER 100 ML IVPB ONE (10:12)
[2021-09-07] MEDS: CEFTRIAXONE 2 GM in DEXTROSE 5%-WATER 100 ML IVPB SCH (10:13)
[2021-09-07] MEDS: COLLAGENASE CLOSTRIDIUM HIST. 30 GRAMS TUBE TP SCH (11:10)
[2021-09-07] MEDS: ATORVASTATIN CA 40 MG TABLET (FP) PO SCH (21:38)
[2021-09-08] MEDS: FUROSEMIDE 40 MG/4 ML INJECTABLE VIAL IVPUSH SCH ×2 (06:39→14:18)
[2021-09-08] MEDS: INSULIN (LEVEMIR) 100 UNITS/ML UNITS SQ SCH ×2 (06:40→22:09)
[2021-09-08] MEDS: INSULIN SLIDING SCALE (NOVOLOG) 1 VIAL SQ SCH ×4 (06:40→22:10)
[2021-09-08 08:26] LABS: ALBUMIN 2.7 g/dl (3.4-5.0); CALCIUM 8.6 mg/dL (8.5-10.1); MAGNESIUM 2.1 mg/dL (1.8-2.4)
[2021-09-08 08:31] LABS: BILIRUBIN,TOTAL 0.3 mg/dL (0.2-1)
[2021-09-08] MEDS ORDERED: DEXTROSE 5%-WATER 100 ML IVPB ONE (10:29)
[2021-09-08] MEDS: COLLAGENASE CLOSTRIDIUM HIST. 30 GRAMS TUBE TP SCH (10:30)
[2021-09-08] MEDS: VITAMIN B COMP W-C 1 EA TABLET (NEPHRO-VITE) PO SCH (10:37)
[2021-09-08] MEDS: amLODIPine BESYLATE 10 MG TABLET (FP) PO SCH (10:37)
[2021-09-08] MEDS: CEFTRIAXONE 2 GM in DEXTROSE 5%-WATER 100 ML IVPB SCH (10:37)
[2021-09-08] MEDS: HEPARIN NA (PORCINE) 5,000 UNITS/ML 1ML VIAL SQ SCH ×2 (10:37→22:09)
[2021-09-08] MEDS: ASPIRIN 81 MG CHEWABLE TABLETS PO SCH (10:37)
[2021-09-08] MEDS: METOPROLOL TARTRATE 50 MG TABLET (FP) PO SCH ×2 (10:38→22:09)
[2021-09-08] MEDS: TAMSULOSIN HCL 0.4 MG CAP PO SCH (10:38)
[2021-09-08] MEDS ORDERED: POTASSIUM CHLORIDE TABS 20 MEQ TABLET.ER (FP) PO ONE (11:15)
[2021-09-08] MEDS: ATORVASTATIN CA 40 MG TABLET (FP) PO SCH (22:09)
[2021-09-09] MEDS: FUROSEMIDE 40 MG/4 ML INJECTABLE VIAL IVPUSH SCH ×2 (06:28→13:20)
[2021-09-09] MEDS: INSULIN SLIDING SCALE (NOVOLOG) 1 VIAL SQ SCH ×4 (06:28→21:23)
[2021-09-09] MEDS: INSULIN (LEVEMIR) 100 UNITS/ML UNITS SQ SCH ×2 (06:28→21:22)
[2021-09-09] MEDS: TAMSULOSIN HCL 0.4 MG CAP PO SCH (08:31)
[2021-09-09] MEDS ORDERED: DEXTROSE 5%-WATER 100 ML IVPB ONE (09:43)
[2021-09-09] MEDS: HEPARIN NA (PORCINE) 5,000 UNITS/ML 1ML VIAL SQ SCH ×2 (09:47→21:23)
[2021-09-09] MEDS: CEFTRIAXONE 2 GM in DEXTROSE 5%-WATER 100 ML IVPB SCH (09:48)
[2021-09-09] MEDS: VITAMIN B COMP W-C 1 EA TABLET (NEPHRO-VITE) PO SCH (09:48)
[2021-09-09] MEDS: METOPROLOL TARTRATE 50 MG TABLET (FP) PO SCH ×2 (09:48→21:23)
[2021-09-09] MEDS: ASPIRIN 81 MG CHEWABLE TABLETS PO SCH (09:48)
[2021-09-09] MEDS: amLODIPine BESYLATE 10 MG TABLET (FP) PO SCH (09:48)
[2021-09-09] MEDS: COLLAGENASE CLOSTRIDIUM HIST. 30 GRAMS TUBE TP SCH (11:20)
[2021-09-09] MEDS: ATORVASTATIN CA 40 MG TABLET (FP) PO SCH (21:23)
[2021-09-10] MEDS: INSULIN (LEVEMIR) 100 UNITS/ML UNITS SQ SCH (06:41)
[2021-09-10] MEDS: FUROSEMIDE 40 MG/4 ML INJECTABLE VIAL IVPUSH SCH ×2 (06:41→15:28)
[2021-09-10] MEDS: INSULIN SLIDING SCALE (NOVOLOG) 1 VIAL SQ SCH ×3 (06:42→16:40)
[2021-09-10] MEDS ORDERED: DEXTROSE 5%-WATER 100 ML IVPB ONE (08:59)
[2021-09-10 09:09] LABS: EOS % 3.3 % (0-4.5); HEMATOCRIT 31.1 % (35.4-49); HEMOGLOBIN 10.6 GM/dL (11.7-16.9); MCH 27.8 pg (25.7-33.7); MEAN CELL VOLUME 81.8 fl (80-96); MEAN PLT VOLUME 9.3 fl (7.5-11.1); MONO % 10.6 % (3.8-10.2); NEUT % 76.1 % (42.8-82.8); PLATELET COUNT 192 10^3/uL (134-434); WHITE BLOOD COUNT 6.9 K/mm3 (4.0-10.0)
[2021-09-10] MEDS: METOPROLOL TARTRATE 50 MG TABLET (FP) PO SCH (09:09)
[2021-09-10] MEDS: TAMSULOSIN HCL 0.4 MG CAP PO SCH (09:09)
[2021-09-10] MEDS: amLODIPine BESYLATE 10 MG TABLET (FP) PO SCH (09:09)
[2021-09-10] MEDS: ASPIRIN 81 MG CHEWABLE TABLETS PO SCH (09:09)
[2021-09-10] MEDS: VITAMIN B COMP W-C 1 EA TABLET (NEPHRO-VITE) PO SCH (09:09)
[2021-09-10] MEDS: HEPARIN NA (PORCINE) 5,000 UNITS/ML 1ML VIAL SQ SCH (09:10)
[2021-09-10] MEDS: CEFTRIAXONE 2 GM in DEXTROSE 5%-WATER 100 ML IVPB SCH (09:11)
[2021-09-10 09:36] LABS: CALCIUM 9.3 mg/dL (8.5-10.1)
[2021-09-10 09:37] LABS: ALBUMIN 3.1 g/dl (3.4-5.0)
[2021-09-10 09:40] LABS: CREATININE 2.8 mg/dL (0.55-1.3)
[2021-09-10 09:41] LABS: BILIRUBIN,TOTAL 0.6 mg/dL (0.2-1); TOT PROT 8.3 g/dl (6.4-8.2)
[2021-09-10 17:07] VITALS: BP 135/65; PULSE 66; TEMP 98.6
== END 2021-09-10 17:07 | disposition home or self-care (01) | DRG 853 ==
LOC: JER 14:30 → JERBED 17:49 → J4W 08-15 21:27 → J4S 08-22 17:29
PROVIDERS: ADMIT Hospitalist
PROC: 047T3ZZ Dilation of Right Peroneal Artery, Percutaneous Approach (ICD-10-PCS; 2021-08-22)
PROC: B40DYZZ Plain Radiography of Aorta and Bilateral Lower Extremity Arteries using Other Contrast (ICD-10-PCS; 2021-08-22)
PROC: 04CT3ZZ Extirpation of Matter from Right Peroneal Artery, Percutaneous Approach (ICD-10-PCS; principal; 2021-08-22 13:00)
PROC: 0Y6X0Z0 Detachment at Right 5th Toe, Complete, Open Approach (ICD-10-PCS; 2021-08-23)
PROC: 0JBQ0ZZ Excision of Right Foot Subcutaneous Tissue and Fascia, Open Approach (ICD-10-PCS; 2021-08-23)
PROC: 0W993ZX Drainage of Right Pleural Cavity, Percutaneous Approach, Diagnostic (ICD-10-PCS; 2021-08-28)
PROC: 02HV33Z Insertion of Infusion Device into Superior Vena Cava, Percutaneous Approach (ICD-10-PCS; 2021-09-10)
PROC: B518ZZA Fluoroscopy of Superior Vena Cava, Guidance (ICD-10-PCS; 2021-09-10)
PROC: 3E033GC Introduction of Other Therapeutic Substance into Peripheral Vein, Percutaneous Approach (ICD-10-PCS; 2021-09-10)
DX: A41.59 Other Gram-negative sepsis (principal); I21.4 Non-ST elevation (NSTEMI) myocardial infarction; I50.23 Acute on chronic systolic (congestive) heart failure; E11.52 Type 2 diabetes mellitus with diabetic peripheral angiopathy with gangrene; I13.0 Hypertensive heart and chronic kidney disease with heart failure and stage 1 through stage 4 chronic kidney disease, or unspecified chronic kidney disease; E87.1 Hypo-osmolality and hyponatremia; L03.115 Cellulitis of right lower limb; I96 Gangrene, not elsewhere classified; N17.9 Acute kidney failure, unspecified; M86.9 Osteomyelitis, unspecified; J90 Pleural effusion, not elsewhere classified; I24.8 Other forms of acute ischemic heart disease; I25.10 Atherosclerotic heart disease of native coronary artery without angina pectoris; E11.69 Type 2 diabetes mellitus with other specified complication; N18.9 Chronic kidney disease, unspecified; N40.0 Benign prostatic hyperplasia without lower urinary tract symptoms; Z95.1 Presence of aortocoronary bypass graft; K21.9 Gastro-esophageal reflux disease without esophagitis
CPT/HCPCS: 36415; 36558; 71045-TC-FY; 71046-TC-FY; 71250-TC; 73630-TC-RT-FY; 73718-TC-RT; 76000-TC-FY; 76775-TC; 76942; 78452-TC; 80048; 80053; 81003; 82010; 82042; 82150; 82465; 82550; 82553; 82570; 82803; 82945; 82962; 83036; 83605; 83615; 83735; 83880; 83986; 84100; 84132; 84157; 84300; 84443; 84478; 84484; 85025; 85027; 85610; 85651; 85730; 86140; 86850; 86900; 86901; 87040; 87070; 87075; 87086; 87102; 87116; 87186; 87205; 87206; 87210; 88108; 88304-TC; 88305-TC; 88307-TC; 88311-TC; 88331-TC; 93005; 93010; 93017; 93306-TC; 93926-TC; 94760; 94761; 97116-GP; 97161-GP; 99285-25; A9502; C9803; G0480; J1644; J2785; U0003; U0005

== ENCOUNTER 2021-09-11 12:35 | Day surgery (SDC) | payer OTHER ==
[2021-09-11] MEDS ORDERED: DEXTROSE 5%-WATER 100 ML IVPB ONE (12:58)
[2021-09-11] MEDS ORDERED: CEFTRIAXONE 2 GM in DEXTROSE 5%-WATER 100 ML IVPB ONE (13:00)
[2021-09-11 13:59] VITALS: BP 130/64; PULSE 70; TEMP 98.5
== END 2021-09-11 14:43 | disposition home or self-care (01) ==
LOC: J7W 12:35 → JINFUSION 12:35
PROVIDERS: ATTEND Internal Medicine
DX: E11.69 Type 2 diabetes mellitus with other specified complication (principal); M86.9 Osteomyelitis, unspecified; L03.115 Cellulitis of right lower limb
CPT/HCPCS: 96365

== ENCOUNTER 2021-09-13 11:31 | Inpatient (IN) | payer OTHER ==
[2021-09-13 13:28] LABS: BASO % 0.6 % (0-2.0); EOS % 0.6 % (0-4.5); LYMPH % 5.3 % (8-40); MCH 27.8 pg (25.7-33.7); MCHC 33.5 g/dl (32.0-35.9); MEAN CELL VOLUME 82.9 fl (80-96); MEAN PLT VOLUME 9.5 fl (7.5-11.1); MONO % 9.1 % (3.8-10.2); NEUT % 84.4 % (42.8-82.8); PLATELET COUNT 208 10^3/uL (134-434); RBC 3.61 M/mm3 (4.00-5.60); RDW 17.5 % (11.9-15.9); WHITE BLOOD COUNT 9.2 K/mm3 (4.0-10.0)
[2021-09-13 13:46] LABS: CHLORIDE 92 mmol/L (98-107); SODIUM 130 mmol/L (136-145)
[2021-09-13 13:49] LABS: ALBUMIN 3.2 g/dl (3.4-5.0); ANION GAP 11 MMOL/L (8-16); BLOOD UREA NITROGEN 78.4 mg/dL (7-18); CALCIUM 9.2 mg/dL (8.5-10.1); CO2 27 mmol/L (21-32)
[2021-09-13 13:52] LABS: CREATININE 3.2 mg/dL (0.55-1.3); SGOT/AST 33 U/L (15-37); SGPT/ALT 50 U/L (13-61)
[2021-09-13 13:53] LABS: TOT PROT 8.1 g/dl (6.4-8.2)
[2021-09-13 13:54] LABS: ALK PHOS 245 U/L (45-117); BILIRUBIN,TOTAL 0.3 mg/dL (0.2-1)
[2021-09-13 13:56] LABS: VENOUS BASE EXCESS 1.7 mmol/L (-2-2); VENOUS O2 SATURATION 78.9 % (70-80); VENOUS PCO2 41.2 mmHg (38-52); VENOUS PH 7.422 (7.310-7.410)
[2021-09-13 13:57] LABS: N-TERMINAL BNP 25751.6 pg/ml (5-125)
[2021-09-13 14:06] LABS: GLUCOSE,RANDOM 494 mg/dL (74-106)
[2021-09-13] MEDS ORDERED: Insulin (LOG) Aspart 100 UNITS/ML VIAL SQ ONE (14:17)
[2021-09-13] MEDS ORDERED: FUROSEMIDE 40 MG/4 ML INJECTABLE VIAL IVPUSH ONE ×2 (14:21→14:41)
[2021-09-13] MEDS ORDERED: FUROSEMIDE 40 MG/4 ML INJECTABLE VIAL ONE ×2 (14:28→14:53)
[2021-09-13 15:09] LABS: EPI CELLS 7 /uL (0-25.1); HYALINE CASTS 0 /uL (0-3.1); PH,URINE 6.5 (5.0-8.0); URINE APPEARANCE CLEAR; URINE BACTERIA 10 /uL (0-1359); URINE BILIRUBIN NEGATIVE (NEGATIVE); URINE COLOR YELLOW; URINE GLUCOSE (UA) 3+ (NEGATIVE); URINE KETONE NEGATIVE (NEGATIVE); URINE LEUK ESTERASE NEGATIVE (NEGATIVE); URINE NITRITE NEGATIVE (NEGATIVE); URINE PROTEIN 3+ (NEGATIVE); URINE RBC 23 /uL (0-23.9); URINE UROBILINOGEN 0.2 mg/dL (0.2-1.0); URINE WBC 48 /uL (0-25.8)
[2021-09-13 16:33] LABS: CHLORIDE 94 mmol/L (98-107); SODIUM 133 mmol/L (136-145)
[2021-09-13 16:34] LABS: CALCIUM 9.3 mg/dL (8.5-10.1)
[2021-09-13 16:35] LABS: ANION GAP 10 MMOL/L (8-16); CO2 29 mmol/L (21-32)
[2021-09-13 16:38] LABS: CREATININE 3.2 mg/dL (0.55-1.3)
[2021-09-13 16:40] LABS: GLUCOSE,RANDOM 409 mg/dL (74-106)
[2021-09-13] MEDS: INSULIN SLIDING SCALE (NOVOLOG) 1 VIAL SQ SCH (16:49)
[2021-09-13] MEDS ORDERED: CEFTRIAXONE 2 GM in DEXTROSE 5%-WATER 100 ML IVPB SCH (17:00)
[2021-09-13] MEDS: METOPROLOL TARTRATE 50 MG TABLET (FP) PO SCH (23:09)
[2021-09-13] MEDS: HEPARIN NA (PORCINE) 5,000 UNITS/ML 1ML VIAL SQ SCH (23:09)
[2021-09-13] MEDS: INSULIN (LEVEMIR) 100 UNITS/ML UNITS SQ SCH (23:14)
[2021-09-13] MEDS ORDERED: DEXTROSE 5%-WATER 100 ML IVPB ONE (23:15)
[2021-09-13] MEDS: CEFTRIAXONE 2 GM in DEXTROSE 5%-WATER 100 ML IVPB SCH (23:17)
[2021-09-14] MEDS ORDERED: TRIMETHOBENZAMIDE HCL 300 MG CAPSULE PO PRN (05:37)
[2021-09-14] MEDS ORDERED: FUROSEMIDE 40 MG/4 ML INJECTABLE VIAL IVPB SCH (06:00)
[2021-09-14] MEDS: HEPARIN NA (PORCINE) 5,000 UNITS/ML 1ML VIAL SQ SCH ×3 (06:11→22:13)
[2021-09-14] MEDS: INSULIN SLIDING SCALE (NOVOLOG) 1 VIAL SQ SCH ×3 (06:13→17:20)
[2021-09-14 07:41] LABS: CALCIUM 8.7 mg/dL (8.5-10.1); MAGNESIUM 2.2 mg/dL (1.8-2.4)
[2021-09-14 07:42] LABS: BLOOD UREA NITROGEN 78.7 mg/dL (7-18)
[2021-09-14 07:44] LABS: BASO % 0.6 % (0-2.0); EOS % 0.8 % (0-4.5); HEMATOCRIT 29.9 % (35.4-49); MCH 27.7 pg (25.7-33.7); MCHC 33.4 g/dl (32.0-35.9); MEAN PLT VOLUME 9.6 fl (7.5-11.1); MONO % 9.1 % (3.8-10.2); NEUT % 84.5 % (42.8-82.8); PLATELET COUNT 189 10^3/uL (134-434); RBC 3.61 M/mm3 (4.00-5.60); WHITE BLOOD COUNT 7.6 K/mm3 (4.0-10.0)
[2021-09-14 07:45] LABS: CREATININE 3.3 mg/dL (0.55-1.3); PHOSPHOROUS 4.2 mg/dL (2.5-4.9)
[2021-09-14] MEDS ORDERED: DEXTROSE 5%-WATER 100 ML IVPB ONE (10:24)
[2021-09-14] MEDS: ROSUVASTATIN CA 20 MG TABLET PO SCH ×2 (10:33→10:35)
[2021-09-14] MEDS: METOPROLOL TARTRATE 50 MG TABLET (FP) PO SCH ×2 (10:33→22:13)
[2021-09-14] MEDS: ASPIRIN 81 MG CHEWABLE TABLETS PO SCH (10:33)
[2021-09-14] MEDS: amLODIPine BESYLATE 10 MG TABLET (FP) PO SCH (10:34)
[2021-09-14] MEDS: CEFTRIAXONE 2 GM in DEXTROSE 5%-WATER 100 ML IVPB SCH (10:35)
[2021-09-14] MEDS ORDERED: INSULIN (LEVEMIR) 100 UNITS/ML UNITS SQ ONE (11:31)
[2021-09-14] MEDS: INSULIN (LEVEMIR) 100 UNITS/ML UNITS SQ SCH ×2 (11:37→22:19)
[2021-09-14] MEDS: COLLAGENASE CLOSTRIDIUM HIST. 30 GRAMS TUBE TP SCH (12:10)
[2021-09-14] MEDS: FUROSEMIDE 40 MG/4 ML INJECTABLE VIAL IVPB SCH ×2 (12:10→14:35)
[2021-09-14] MEDS ORDERED: TRIMETHOBENZAMIDE HCL 200MG/2ML INJ IM ONE (18:30)
[2021-09-15] MEDS: INSULIN SLIDING SCALE (NOVOLOG) 1 VIAL SQ SCH ×3 (06:06→16:55)
[2021-09-15] MEDS: HEPARIN NA (PORCINE) 5,000 UNITS/ML 1ML VIAL SQ SCH ×3 (06:42→21:51)
[2021-09-15] MEDS: FUROSEMIDE 40 MG/4 ML INJECTABLE VIAL IVPB SCH ×2 (06:42→14:33)
[2021-09-15 07:34] LABS: CALCIUM 8.6 mg/dL (8.5-10.1)
[2021-09-15 07:35] LABS: ALBUMIN 2.9 g/dl (3.4-5.0); BLOOD UREA NITROGEN 84.2 mg/dL (7-18)
[2021-09-15 07:36] LABS: BASO % 0.8 % (0-2.0); EOS % 1.5 % (0-4.5); HEMATOCRIT 32.2 % (35.4-49); HEMOGLOBIN 10.8 GM/dL (11.7-16.9); LYMPH % 6.2 % (8-40); MCH 27.6 pg (25.7-33.7); MCHC 33.6 g/dl (32.0-35.9); MEAN CELL VOLUME 82.2 fl (80-96); MEAN PLT VOLUME 9.4 fl (7.5-11.1); MONO % 11.4 % (3.8-10.2); NEUT % 80.1 % (42.8-82.8); PLATELET COUNT 204 10^3/uL (134-434); RBC 3.91 M/mm3 (4.00-5.60); RDW 17.6 % (11.9-15.9); WHITE BLOOD COUNT 7.5 K/mm3 (4.0-10.0)
[2021-09-15 07:38] LABS: CREATININE 3.3 mg/dL (0.55-1.3)
[2021-09-15 07:39] LABS: BILIRUBIN,TOTAL 0.3 mg/dL (0.2-1)
[2021-09-15 07:40] LABS: TOT PROT 7.6 g/dl (6.4-8.2)
[2021-09-15] MEDS ORDERED: DEXTROSE 5%-WATER 100 ML IVPB ONE (10:47)
[2021-09-15] MEDS: METOPROLOL TARTRATE 50 MG TABLET (FP) PO SCH ×2 (10:50→21:51)
[2021-09-15] MEDS: ASPIRIN 81 MG CHEWABLE TABLETS PO SCH (10:50)
[2021-09-15] MEDS: ROSUVASTATIN CA 20 MG TABLET PO SCH (10:50)
[2021-09-15] MEDS: CEFTRIAXONE 2 GM in DEXTROSE 5%-WATER 100 ML IVPB SCH (10:50)
[2021-09-15] MEDS: amLODIPine BESYLATE 10 MG TABLET (FP) PO SCH (10:50)
[2021-09-15] MEDS: INSULIN (LEVEMIR) 100 UNITS/ML UNITS SQ SCH ×2 (11:25→21:50)
[2021-09-15] MEDS: COLLAGENASE CLOSTRIDIUM HIST. 30 GRAMS TUBE TP SCH (14:05)
[2021-09-16] MEDS ORDERED: TRIMETHOBENZAMIDE HCL 200MG/2ML INJ IM PRN (03:13)
[2021-09-16] MEDS: HEPARIN NA (PORCINE) 5,000 UNITS/ML 1ML VIAL SQ SCH ×3 (06:37→22:33)
[2021-09-16] MEDS: FUROSEMIDE 40 MG/4 ML INJECTABLE VIAL IVPB SCH ×2 (06:38→15:31)
[2021-09-16] MEDS: INSULIN SLIDING SCALE (NOVOLOG) 1 VIAL SQ SCH ×3 (06:38→17:41)
[2021-09-16 07:41] LABS: BASO % 0.4 % (0-2.0); EOS % 0.2 % (0-4.5); HEMATOCRIT 31.9 % (35.4-49); HEMOGLOBIN 10.7 GM/dL (11.7-16.9); LYMPH % 4.5 % (8-40); MCH 27.8 pg (25.7-33.7); MCHC 33.7 g/dl (32.0-35.9); MEAN CELL VOLUME 82.4 fl (80-96); MEAN PLT VOLUME 9.8 fl (7.5-11.1); MONO % 12.7 % (3.8-10.2); NEUT % 82.2 % (42.8-82.8); PLATELET COUNT 209 10^3/uL (134-434); RBC 3.87 M/mm3 (4.00-5.60); RDW 18.2 % (11.9-15.9)
[2021-09-16 07:42] LABS: CALCIUM 8.7 mg/dL (8.5-10.1)
[2021-09-16 07:43] LABS: BLOOD UREA NITROGEN 90.3 mg/dL (7-18)
[2021-09-16 07:46] LABS: CREATININE 3.5 mg/dL (0.55-1.3)
[2021-09-16 07:48] LABS: BILIRUBIN,TOTAL 0.8 mg/dL (0.2-1); TOT PROT 7.6 g/dl (6.4-8.2)
[2021-09-16 10:12] LABS: INR 1.28 (0.83-1.09); PROTHROMBIN TIME (PATIENT) 14.8 SEC (9.7-13.0)
[2021-09-16] MEDS: METOPROLOL TARTRATE 50 MG TABLET (FP) PO SCH ×2 (11:00→22:35)
[2021-09-16] MEDS: amLODIPine BESYLATE 10 MG TABLET (FP) PO SCH (11:00)
[2021-09-16] MEDS: ASPIRIN 81 MG CHEWABLE TABLETS PO SCH (11:01)
[2021-09-16] MEDS: CEFAZOLIN 500 MG in DEXTROSE 5%-WATER - 50 ML IVPB SCH ×2 (11:05→22:32)
[2021-09-16] MEDS: INSULIN (LEVEMIR) 100 UNITS/ML UNITS SQ SCH ×2 (11:06→22:35)
[2021-09-16] MEDS: COLLAGENASE CLOSTRIDIUM HIST. 30 GRAMS TUBE TP SCH (11:23)
[2021-09-16] MEDS: ROSUVASTATIN CA 20 MG TABLET PO SCH (11:26)
[2021-09-16] MEDS ORDERED: guaiFENesin/D-METHORPHAN HB 10 ML UNIT-DOSE CUPS PO PRN (13:33)
[2021-09-16] MEDS: guaiFENesin/D-METHORPHAN TAB.ER.12H PO SCH ×2 (15:28→22:35)
[2021-09-16] MEDS: LORazepam 0.5 MG TABLET PO PRN (23:54)
[2021-09-17 06:06] LABS: SARS-CoV-2 NAA Not Detected (Not Detected)
[2021-09-17] MEDS: HEPARIN NA (PORCINE) 5,000 UNITS/ML 1ML VIAL SQ SCH ×3 (06:48→23:15)
[2021-09-17] MEDS: FUROSEMIDE 40 MG/4 ML INJECTABLE VIAL IVPB SCH (06:48)
[2021-09-17] MEDS: INSULIN SLIDING SCALE (NOVOLOG) 1 VIAL SQ SCH ×3 (06:49→17:12)
[2021-09-17 08:08] LABS: BASO % 0.3 % (0-2.0); HEMATOCRIT 33.2 % (35.4-49); HEMOGLOBIN 10.5 GM/dL (11.7-16.9); LYMPH % 2.1 % (8-40); MCH 26.5 pg (25.7-33.7); MCHC 31.7 g/dl (32.0-35.9); MEAN CELL VOLUME 83.8 fl (80-96); MEAN PLT VOLUME 10.6 fl (7.5-11.1); MONO % 10.5 % (3.8-10.2); NEUT % 87.1 % (42.8-82.8); PLATELET COUNT 135 10^3/uL (134-434); RBC 3.97 M/mm3 (4.00-5.60); RDW 18.6 % (11.9-15.9); WHITE BLOOD COUNT 11.9 K/mm3 (4.0-10.0)
[2021-09-17 08:21] LABS: CHLORIDE 88 mmol/L (98-107); SODIUM 126 mmol/L (136-145)
[2021-09-17 08:26] LABS: ALBUMIN 3.1 g/dl (3.4-5.0); CALCIUM 8.5 mg/dL (8.5-10.1); CO2 18 mmol/L (21-32)
[2021-09-17 08:27] LABS: GLUCOSE,RANDOM 68 mg/dL (74-106)
[2021-09-17 08:30] LABS: CREATININE 4.4 mg/dL (0.55-1.3)
[2021-09-17 08:31] LABS: BILIRUBIN,TOTAL 1.6 mg/dL (0.2-1); TOT PROT 7.7 g/dl (6.4-8.2)
[2021-09-17 08:55] LABS: ALK PHOS 733 U/L (45-117); ANION GAP 20 MMOL/L (8-16); BLOOD UREA NITROGEN 112.4 mg/dL (7-18); SGOT/AST 3001 U/L (15-37); SGPT/ALT 2288 U/L (13-61)
[2021-09-17] MEDS ORDERED: DEXTROSE 50%-WATER - 25 GM/50 ML VIAL IVPUSH ONE ×2 (09:17→09:28)
[2021-09-17] MEDS ORDERED: INSULIN REGULAR HUMAN 100 UNITS/ML *VIAL IVPUSH ONE ×2 (09:17→10:15)
[2021-09-17] MEDS ORDERED: FUROSEMIDE 40 MG/4 ML INJECTABLE VIAL IVPUSH ONE (09:30)
[2021-09-17] MEDS ORDERED: FUROSEMIDE 40 MG/4 ML INJECTABLE VIAL ONE (09:39)
[2021-09-17] MEDS ORDERED: MAGNESIUM SULF 50% (8.12 MEQ/2 ML-1 GM VIAL) ONE (09:48)
[2021-09-17] MEDS ORDERED: SODIUM ZIRCONIUM CYCLOSILICATE (LOKELMA) 5 GM PACKET PO SCH (10:00)
[2021-09-17] MEDS ORDERED: CALCIUM GLUCONATE 10% - 1,000 MG/10 ML VIAL IVPUSH ONE (10:15)
[2021-09-17 12:32] LABS: ARTERIAL BLOOD GAS PO2 73.9 mmHg (80-100); ARTERIAL BLOOD GAS pH 7.218 (7.350-7.450)
[2021-09-17 12:33] LABS: ALLENS TEST POSITIVE
[2021-09-17 12:34] LABS: VENT RATE 14
[2021-09-17 13:04] LABS: CHLORIDE 88 mmol/L (98-107); SODIUM 127 mmol/L (136-145)
[2021-09-17 13:07] LABS: CALCIUM 7.9 mg/dL (8.5-10.1)
[2021-09-17 13:08] LABS: ALBUMIN 2.6 g/dl (3.4-5.0); ANION GAP 21 MMOL/L (8-16); CO2 18 mmol/L (21-32); GLUCOSE,RANDOM 200 mg/dL (74-106)
[2021-09-17 13:11] LABS: CREATININE 4.9 mg/dL (0.55-1.3)
[2021-09-17 13:12] LABS: BILIRUBIN,TOTAL 1.9 mg/dL (0.2-1); TOT PROT 6.8 g/dl (6.4-8.2)
[2021-09-17 13:13] LABS: ALK PHOS 706 U/L (45-117)
[2021-09-17 13:30] LABS: BLOOD UREA NITROGEN 112.8 mg/dL (7-18); SGOT/AST 5500 U/L (15-37); SGPT/ALT 3361 U/L (13-61)
[2021-09-17] MEDS: CEFAZOLIN 500 MG in DEXTROSE 5%-WATER - 50 ML IVPB SCH ×2 (15:18→23:34)
[2021-09-17] MEDS: ASPIRIN 81 MG CHEWABLE TABLETS PO SCH (15:18)
[2021-09-17] MEDS: INSULIN (LEVEMIR) 100 UNITS/ML UNITS SQ SCH ×2 (15:19→23:04)
[2021-09-17] MEDS: guaiFENesin/D-METHORPHAN TAB.ER.12H PO SCH ×2 (15:19→23:03)
[2021-09-17] MEDS: METOPROLOL TARTRATE 50 MG TABLET (FP) PO SCH ×2 (15:19→22:05)
[2021-09-17] MEDS: amLODIPine BESYLATE 10 MG TABLET (FP) PO SCH (15:20)
[2021-09-17] MEDS: COLLAGENASE CLOSTRIDIUM HIST. 30 GRAMS TUBE TP SCH (15:21)
[2021-09-17] MEDS: NOREPINEPHRINE BITARTRATE 16,000 MCG in SODIUM CHLORIDE 484 ML IV SCH (15:40)
[2021-09-17] MEDS: FUROSEMIDE 100 MG/10 ML INJECTABLE VIAL IVPB SCH (16:02)
[2021-09-17] MEDS ORDERED: DEXTROSE 5%-WATER 100 ML MINI BAG IVPB ONE (20:00)
[2021-09-17] MEDS ORDERED: MAGNESIUM SULF 50% (8.12 MEQ/2 ML-1 GM VIAL) IVPB ONE (20:00)
[2021-09-17] MEDS ORDERED: MAGNESIUM 1GM/D5W - 1 GM/100 ML IVPB IVPB ONE (21:00)
[2021-09-17] MEDS: CHLORHEXIDINE GLUCONATE 4% CLEANSER FOR DECOLONIZATION TP SCH (22:05)
[2021-09-17] MEDS: MUPIROCIN 2% TOPICAL OINTMENT FOR DECOLONIZATION NS SCH (23:02)
[2021-09-18] MEDS ORDERED: PIPERACILLIN/TAZOBACTAM 2.25 GM VIAL IVPB ONE ×3 (03:52→18:13)
[2021-09-18] MEDS ORDERED: DEXTROSE 5%-WATER - 50 ML IVPB ONE ×3 (03:52→18:14)
[2021-09-18] MEDS: PIPERACILLIN/TAZOB 2.25 GM 2.25 GM in DEXTROSE 5%-WATER - 50 ML IVPB SCH ×3 (03:55→18:15)
[2021-09-18] MEDS: HEPARIN NA (PORCINE) 5,000 UNITS/ML 1ML VIAL SQ SCH ×3 (06:46→21:51)
[2021-09-18] MEDS: FUROSEMIDE 100 MG/10 ML INJECTABLE VIAL IVPB SCH ×2 (06:46→14:26)
[2021-09-18] MEDS: INSULIN SLIDING SCALE (NOVOLOG) 1 VIAL SQ SCH ×3 (06:48→17:43)
[2021-09-18 06:49] LABS: HEMATOCRIT 28.6 % (35.4-49); HEMOGLOBIN 9.2 GM/dL (11.7-16.9); MCH 26.8 pg (25.7-33.7); MCHC 32.2 g/dl (32.0-35.9); MEAN CELL VOLUME 83.3 fl (80-96); MEAN PLT VOLUME 11.3 fl (7.5-11.1); PLATELET COUNT 39 10^3/uL (134-434); RBC 3.44 M/mm3 (4.00-5.60); RDW 18.3 % (11.9-15.9); WHITE BLOOD COUNT 14.2 K/mm3 (4.0-10.0)
[2021-09-18 07:19] LABS: ALBUMIN 2.9 g/dl (3.4-5.0); BLOOD UREA NITROGEN 92.4 mg/dL (7-18); MAGNESIUM 2.5 mg/dL (1.8-2.4)
[2021-09-18 07:22] LABS: CREATININE 4.3 mg/dL (0.55-1.3)
[2021-09-18 07:23] LABS: PHOSPHOROUS 7.6 mg/dL (2.5-4.9)
[2021-09-18 07:24] LABS: BILIRUBIN,TOTAL 2.6 mg/dL (0.2-1)
[2021-09-18 09:23] LABS: PLATELET ESTIMATE DECREASED
[2021-09-18] MEDS: ASPIRIN 81 MG CHEWABLE TABLETS PO SCH (09:26)
[2021-09-18] MEDS: METOPROLOL TARTRATE 50 MG TABLET (FP) PO SCH ×2 (09:27→21:52)
[2021-09-18] MEDS: MUPIROCIN 2% TOPICAL OINTMENT FOR DECOLONIZATION NS SCH ×2 (09:27→21:53)
[2021-09-18] MEDS: amLODIPine BESYLATE 10 MG TABLET (FP) PO SCH (09:28)
[2021-09-18] MEDS: guaiFENesin/D-METHORPHAN TAB.ER.12H PO SCH ×2 (09:28→23:18)
[2021-09-18] MEDS ORDERED: SODIUM ZIRCONIUM CYCLOSILICATE (LOKELMA) 5 GM PACKET PO SCH (09:42)
[2021-09-18] MEDS ORDERED: SODIUM CHLORIDE 250 ML IV PRN ×2 (10:54→10:55)
[2021-09-18] MEDS ORDERED: HEPARIN NA (PORCINE) 5,000 UNITS/ML 1ML VIAL IVPUSH ONE (11:00)
[2021-09-18] MEDS: COLLAGENASE CLOSTRIDIUM HIST. 30 GRAMS TUBE TP SCH (11:19)
[2021-09-18] MEDS: INSULIN (LEVEMIR) 100 UNITS/ML UNITS SQ SCH ×2 (11:29→22:06)
[2021-09-18] MEDS: NOREPINEPHRINE BITARTRATE 16,000 MCG in SODIUM CHLORIDE 484 ML IV SCH (13:34)
[2021-09-18 14:54] LABS: HEMATOCRIT 27.5 % (35.4-49); MCH 27.1 pg (25.7-33.7); MCHC 32.9 g/dl (32.0-35.9); MEAN CELL VOLUME 82.3 fl (80-96); MEAN PLT VOLUME 10.6 fl (7.5-11.1); PLATELET COUNT 37 10^3/uL (134-434); RBC 3.34 M/mm3 (4.00-5.60); RDW 18.2 % (11.9-15.9); WHITE BLOOD COUNT 12.8 K/mm3 (4.0-10.0)
[2021-09-18 15:08] LABS: INR 2.28 (0.83-1.09); PROTHROMBIN TIME (PATIENT) 26.4 SEC (9.7-13.0)
[2021-09-18 15:11] LABS: ACTIVATED PTT 36.1 SECONDS (25.2-36.5)
[2021-09-18] MEDS ORDERED: DEXTROSE 50%-WATER 25 GM/50 ML DISP.SYRIN ONE (16:26)
[2021-09-18] MEDS: CHLORHEXIDINE GLUCONATE 4% CLEANSER FOR DECOLONIZATION TP SCH (21:53)
[2021-09-18] MEDS: LORazepam 0.5 MG TABLET PO PRN (21:58)
[2021-09-18] MEDS ORDERED: MELATONIN 5 MG TABLETS PO ONE (22:58)
[2021-09-19] MEDS ORDERED: PIPERACILLIN/TAZOBACTAM 2.25 GM VIAL IVPB ONE ×3 (00:29→17:04)
[2021-09-19] MEDS ORDERED: DEXTROSE 5%-WATER - 50 ML IVPB ONE ×3 (00:30→17:04)
[2021-09-19] MEDS ORDERED: QUEtiapine FUMARATE 25 MG TABLET PO SCH ×2 (01:10→10:00)
[2021-09-19] MEDS: PIPERACILLIN/TAZOB 2.25 GM 2.25 GM in DEXTROSE 5%-WATER - 50 ML IVPB SCH ×3 (01:23→18:37)
[2021-09-19] MEDS: HEPARIN NA (PORCINE) 5,000 UNITS/ML 1ML VIAL SQ SCH (05:31)
[2021-09-19] MEDS: FUROSEMIDE 100 MG/10 ML INJECTABLE VIAL IVPB SCH ×2 (05:31→14:54)
[2021-09-19] MEDS: INSULIN SLIDING SCALE (NOVOLOG) 1 VIAL SQ SCH ×3 (06:43→16:43)
[2021-09-19 07:24] LABS: HEMATOCRIT 24.5 % (35.4-49); HEMOGLOBIN 8.2 GM/dL (11.7-16.9); MCH 27.8 pg (25.7-33.7); MCHC 33.5 g/dl (32.0-35.9); MEAN CELL VOLUME 82.9 fl (80-96); MEAN PLT VOLUME 9.9 fl (7.5-11.1); RBC 2.95 M/mm3 (4.00-5.60); RDW 18.1 % (11.9-15.9); WHITE BLOOD COUNT 7.8 K/mm3 (4.0-10.0)
[2021-09-19 07:26] LABS: PLATELET COUNT 12 10^3/uL (134-434)
[2021-09-19 08:16] LABS: CHLORIDE 97 mmol/L (98-107); SODIUM 134 mmol/L (136-145)
[2021-09-19 08:19] LABS: ALBUMIN 2.7 g/dl (3.4-5.0); ANION GAP 13 MMOL/L (8-16); CO2 25 mmol/L (21-32); GLUCOSE,RANDOM 139 mg/dL (74-106); MAGNESIUM 2.2 mg/dL (1.8-2.4)
[2021-09-19 08:22] LABS: CREATININE 3.7 mg/dL (0.55-1.3); PHOSPHOROUS 5.8 mg/dL (2.5-4.9)
[2021-09-19 08:23] LABS: TOT PROT 6.4 g/dl (6.4-8.2)
[2021-09-19 08:29] LABS: ALK PHOS 584 U/L (45-117); CALCIUM 6.8 mg/dL (8.5-10.1)
[2021-09-19 08:46] LABS: SGOT/AST 5510 U/L (15-37); SGPT/ALT 2563 U/L (13-61)
[2021-09-19] MEDS: MUPIROCIN 2% TOPICAL OINTMENT FOR DECOLONIZATION NS SCH ×2 (10:15→21:34)
[2021-09-19] MEDS: COLLAGENASE CLOSTRIDIUM HIST. 30 GRAMS TUBE TP SCH (10:16)
[2021-09-19] MEDS: INSULIN (LEVEMIR) 100 UNITS/ML UNITS SQ SCH ×2 (10:16→21:48)
[2021-09-19] MEDS: guaiFENesin/D-METHORPHAN TAB.ER.12H PO SCH ×4 (10:19→21:37)
[2021-09-19] MEDS: amLODIPine BESYLATE 10 MG TABLET (FP) PO SCH (10:19)
[2021-09-19] MEDS: METOPROLOL TARTRATE 50 MG TABLET (FP) PO SCH ×2 (10:19→21:35)
[2021-09-19 11:02] LABS: ANISOCYTOSIS 0; MACROCYTOSIS 1+; OVALOCYTE 1+
[2021-09-19 11:27] LABS: INR 2.33 (0.83-1.09)
[2021-09-19 11:29] LABS: ACTIVATED PTT 39.5 SECONDS (25.2-36.5)
[2021-09-19 12:58] LABS: LDH > 1000 U/L (87-246)
[2021-09-19] MEDS ORDERED: CALCIUM GLUCONATE IN NACL 1 GM/50 ML BAG IVPB ONE (13:12)
[2021-09-19] MEDS: NOREPINEPHRINE BITARTRATE 16,000 MCG in SODIUM CHLORIDE 484 ML IV SCH (14:08)
[2021-09-19] MEDS ORDERED: PHYTONADIONE 10 MG/1 ML AMP SQ ONE (14:21)
[2021-09-19] MEDS: CALCIUM ACETATE 667 MG CAPSULE (FP) PO SCH (17:00)
[2021-09-19] MEDS: CHLORHEXIDINE GLUCONATE 4% CLEANSER FOR DECOLONIZATION TP SCH (21:34)
[2021-09-20] MEDS ORDERED: MELATONIN 5 MG TABLETS PO PRN ×2 (00:58→23:41)
[2021-09-20] MEDS ORDERED: DEXTROSE 5%-WATER - 50 ML IVPB ONE ×3 (01:22→18:42)
[2021-09-20] MEDS ORDERED: PIPERACILLIN/TAZOBACTAM 2.25 GM VIAL IVPB ONE ×3 (01:22→18:42)
[2021-09-20] MEDS: PIPERACILLIN/TAZOB 2.25 GM 2.25 GM in DEXTROSE 5%-WATER - 50 ML IVPB SCH ×3 (01:39→18:58)
[2021-09-20] MEDS: FUROSEMIDE 100 MG/10 ML INJECTABLE VIAL IVPB SCH ×2 (05:28→15:23)
[2021-09-20] MEDS: INSULIN SLIDING SCALE (NOVOLOG) 1 VIAL SQ SCH ×3 (06:59→18:58)
[2021-09-20] MEDS ORDERED: SODIUM CHLORIDE 250 ML IV PRN ×3 (07:33→23:41)
[2021-09-20 07:54] LABS: INR 1.6 (0.83-1.09); PROTHROMBIN TIME (PATIENT) 18.5 SEC (9.7-13.0)
[2021-09-20 07:59] LABS: CHLORIDE 96 mmol/L (98-107); SODIUM 134 mmol/L (136-145)
[2021-09-20] MEDS: CALCIUM ACETATE 667 MG CAPSULE (FP) PO SCH ×3 (08:00→18:58)
[2021-09-20 08:03] LABS: ALBUMIN 2.9 g/dl (3.4-5.0); GLUCOSE,RANDOM 99 mg/dL (74-106); MAGNESIUM 2.6 mg/dL (1.8-2.4)
[2021-09-20 08:05] LABS: ANION GAP 12 MMOL/L (8-16); CO2 26 mmol/L (21-32)
[2021-09-20 08:06] LABS: CREATININE 4.7 mg/dL (0.55-1.3); PHOSPHOROUS 5.1 mg/dL (2.5-4.9)
[2021-09-20 08:07] LABS: BILIRUBIN,TOTAL 1.9 mg/dL (0.2-1); TOT PROT 6.6 g/dl (6.4-8.2)
[2021-09-20 08:20] LABS: HEMATOCRIT 25.4 % (35.4-49); HEMOGLOBIN 8.4 GM/dL (11.7-16.9); MCH 27.4 pg (25.7-33.7); MEAN CELL VOLUME 83.3 fl (80-96); MEAN PLT VOLUME 9.7 fl (7.5-11.1); RBC 3.05 M/mm3 (4.00-5.60); RDW 18.6 % (11.9-15.9); WHITE BLOOD COUNT 8.5 K/mm3 (4.0-10.0)
[2021-09-20 08:25] LABS: ALK PHOS 523 U/L (45-117); BLOOD UREA NITROGEN 105.1 mg/dL (7-18); CALCIUM 8.2 mg/dL (8.5-10.1); SGOT/AST 2879 U/L (15-37); SGPT/ALT 1764 U/L (13-61)
[2021-09-20] MEDS: ALBUMIN HUMAN 25% 12.5 GM/50 ML VIAL IV SCH ×3 (08:37→09:25)
[2021-09-20 08:43] LABS: PLATELET COUNT 19 10^3/uL (134-434)
[2021-09-20 09:14] LABS: CALCIUM 7.5 mg/dL (8.5-10.1)
[2021-09-20 09:16] LABS: BLOOD UREA NITROGEN 80.5 mg/dL (7-18)
[2021-09-20 09:19] LABS: CREATININE 3.6 mg/dL (0.55-1.3)
[2021-09-20 10:08] LABS: ANISOCYTOSIS 1+; MACROCYTOSIS 0; OVALOCYTE 1+
[2021-09-20] MEDS: MUPIROCIN 2% TOPICAL OINTMENT FOR DECOLONIZATION NS SCH ×2 (10:44→21:34)
[2021-09-20] MEDS: METOPROLOL TARTRATE 50 MG TABLET (FP) PO SCH ×2 (10:44→21:34)
[2021-09-20] MEDS: INSULIN (LEVEMIR) 100 UNITS/ML UNITS SQ SCH ×2 (11:44→21:36)
[2021-09-20] MEDS: guaiFENesin/D-METHORPHAN TAB.ER.12H PO SCH ×2 (11:45→21:37)
[2021-09-20] MEDS: amLODIPine BESYLATE 10 MG TABLET (FP) PO SCH (11:45)
[2021-09-20] MEDS: NOREPINEPHRINE BITARTRATE 16,000 MCG in SODIUM CHLORIDE 484 ML IV SCH (14:46)
[2021-09-20] MEDS: COLLAGENASE CLOSTRIDIUM HIST. 30 GRAMS TUBE TP SCH (14:46)
[2021-09-20 17:55] LABS: HEMATOCRIT 23.9 % (35.4-49); HEMOGLOBIN 7.8 GM/dL (11.7-16.9); MCH 27.2 pg (25.7-33.7); MCHC 32.8 g/dl (32.0-35.9); MEAN CELL VOLUME 82.9 fl (80-96); MEAN PLT VOLUME 9.5 fl (7.5-11.1); RBC 2.89 M/mm3 (4.00-5.60); RDW 18.4 % (11.9-15.9); WHITE BLOOD COUNT 8.6 K/mm3 (4.0-10.0)
[2021-09-20 18:43] LABS: PLATELET COUNT 21 10^3/uL (134-434)
[2021-09-20] MEDS: CHLORHEXIDINE GLUCONATE 4% CLEANSER FOR DECOLONIZATION TP SCH (21:35)
[2021-09-20] MEDS ORDERED: guaiFENesin/D-METHORPHAN HB 10 ML UNIT-DOSE CUPS PO PRN (23:41)
[2021-09-21] MEDS ORDERED: PIPERACILLIN/TAZOBACTAM 2.25 GM VIAL IVPB ONE ×3 (01:47→17:28)
[2021-09-21] MEDS ORDERED: DEXTROSE 5%-WATER - 50 ML IVPB ONE ×3 (01:47→17:28)
[2021-09-21] MEDS: PIPERACILLIN/TAZOB 2.25 GM 2.25 GM in DEXTROSE 5%-WATER - 50 ML IVPB SCH ×4 (01:58→17:30)
[2021-09-21] MEDS: FUROSEMIDE 100 MG/10 ML INJECTABLE VIAL IVPB SCH ×2 (06:26→14:26)
[2021-09-21] MEDS: INSULIN SLIDING SCALE (NOVOLOG) 1 VIAL SQ SCH ×4 (06:27→17:30)
[2021-09-21] MEDS: ALBUMIN HUMAN 25% 12.5 GM/50 ML VIAL IV SCH (07:39)
[2021-09-21] MEDS: INSULIN (LEVEMIR) 100 UNITS/ML UNITS SQ SCH ×2 (07:52→21:41)
[2021-09-21] MEDS: CALCIUM ACETATE 667 MG CAPSULE (FP) PO SCH ×4 (07:52→17:30)
[2021-09-21 07:58] LABS: HEMOGLOBIN 7.7 GM/dL (11.7-16.9); MCH 27.8 pg (25.7-33.7); MCHC 33.5 g/dl (32.0-35.9); RBC 2.77 M/mm3 (4.00-5.60); RDW 18.1 % (11.9-15.9); WHITE BLOOD COUNT 8.1 K/mm3 (4.0-10.0)
[2021-09-21 08:24] LABS: ALBUMIN 2.5 g/dl (3.4-5.0)
[2021-09-21 08:25] LABS: CALCIUM 7.9 mg/dL (8.5-10.1)
[2021-09-21 08:26] LABS: BLOOD UREA NITROGEN 77.7 mg/dL (7-18); MAGNESIUM 2.1 mg/dL (1.8-2.4)
[2021-09-21 08:28] LABS: CREATININE 4.4 mg/dL (0.55-1.3)
[2021-09-21 08:29] LABS: BILIRUBIN,TOTAL 2.1 mg/dL (0.2-1); TOT PROT 6.3 g/dl (6.4-8.2)
[2021-09-21 09:06] LABS: PLATELET COUNT 18 10^3/uL (134-434)
[2021-09-21] MEDS ORDERED: amLODIPine BESYLATE 10 MG TABLET (FP) PO SCH (10:00)
[2021-09-21] MEDS ORDERED: METOPROLOL TARTRATE 50 MG TABLET (FP) PO SCH (10:00)
[2021-09-21] MEDS ORDERED: MUPIROCIN 2% TOPICAL OINTMENT FOR DECOLONIZATION NS SCH (10:00)
[2021-09-21] MEDS ORDERED: guaiFENesin/D-METHORPHAN TAB.ER.12H PO SCH (10:00)
[2021-09-21] MEDS ORDERED: COLLAGENASE CLOSTRIDIUM HIST. 30 GRAMS TUBE TP SCH (10:00)
[2021-09-21] MEDS ORDERED: INSULIN (LEVEMIR) 100 UNITS/ML UNITS SQ SCH (10:00)
[2021-09-21] MEDS: METOPROLOL TARTRATE 50 MG TABLET (FP) PO SCH ×3 (10:23→22:05)
[2021-09-21] MEDS: guaiFENesin/D-METHORPHAN TAB.ER.12H PO SCH ×3 (10:23→21:40)
[2021-09-21] MEDS: COLLAGENASE CLOSTRIDIUM HIST. 30 GRAMS TUBE TP SCH ×2 (10:23→13:16)
[2021-09-21] MEDS: amLODIPine BESYLATE 10 MG TABLET (FP) PO SCH ×2 (10:23→13:15)
[2021-09-21] MEDS: MINERAL OIL/PET HY-PHL TOPICAL OINTMENT 454 GM JAR TP SCH ×2 (13:17→21:41)
[2021-09-21 21:38] LABS: HEMATOCRIT 24.7 % (35.4-49); HEMOGLOBIN 8.1 GM/dL (11.7-16.9); MCH 27.4 pg (25.7-33.7); MCHC 32.8 g/dl (32.0-35.9); MEAN CELL VOLUME 83.8 fl (80-96); MEAN PLT VOLUME 9.7 fl (7.5-11.1); RBC 2.95 M/mm3 (4.00-5.60); RDW 18.4 % (11.9-15.9); WHITE BLOOD COUNT 7.8 K/mm3 (4.0-10.0)
[2021-09-21 21:47] LABS: PLATELET COUNT 34 10^3/uL (134-434)
[2021-09-21] MEDS ORDERED: CHLORHEXIDINE GLUCONATE 4% CLEANSER FOR DECOLONIZATION TP SCH (22:00)
[2021-09-22] MEDS ORDERED: METOPROLOL TARTRATE 25 MG TABLET (FP) PO ONE (00:42)
[2021-09-22] MEDS ORDERED: PIPERACILLIN/TAZOBACTAM 2.25 GM VIAL IVPB ONE ×3 (01:26→17:30)
[2021-09-22] MEDS ORDERED: DEXTROSE 5%-WATER - 50 ML IVPB ONE ×3 (01:27→17:30)
[2021-09-22] MEDS: PIPERACILLIN/TAZOB 2.25 GM 2.25 GM in DEXTROSE 5%-WATER - 50 ML IVPB SCH ×4 (01:38→17:42)
[2021-09-22] MEDS: FUROSEMIDE 100 MG/10 ML INJECTABLE VIAL IVPB SCH ×2 (06:24→13:18)
[2021-09-22] MEDS: INSULIN SLIDING SCALE (NOVOLOG) 1 VIAL SQ SCH ×3 (06:25→17:38)
[2021-09-22] MEDS: INSULIN (LEVEMIR) 100 UNITS/ML UNITS SQ SCH ×2 (06:25→22:12)
[2021-09-22] MEDS ORDERED: INSULIN (NOVOLOG) ASPART 100 UNITS/ML 10ML VIAL ONE (07:32)
[2021-09-22 09:12] LABS: BASO % 0.4 % (0-2.0); EOS % 0.3 % (0-4.5); HEMOGLOBIN 8.1 GM/dL (11.7-16.9); LYMPH % 7.1 % (8-40); MCH 27.6 pg (25.7-33.7); MCHC 32.6 g/dl (32.0-35.9); MEAN CELL VOLUME 84.5 fl (80-96); MEAN PLT VOLUME 10.2 fl (7.5-11.1); NEUT % 75.2 % (42.8-82.8); RBC 2.96 M/mm3 (4.00-5.60); RDW 18.4 % (11.9-15.9); WHITE BLOOD COUNT 8.3 K/mm3 (4.0-10.0)
[2021-09-22 09:19] LABS: INR 1.25 (0.83-1.09); PROTHROMBIN TIME (PATIENT) 14.4 SEC (9.7-13.0)
[2021-09-22] MEDS: MINERAL OIL/PET HY-PHL TOPICAL OINTMENT 454 GM JAR TP SCH ×2 (09:21→21:43)
[2021-09-22] MEDS: CALCIUM ACETATE 667 MG CAPSULE (FP) PO SCH ×3 (09:21→17:38)
[2021-09-22] MEDS: guaiFENesin/D-METHORPHAN TAB.ER.12H PO SCH ×2 (09:21→21:48)
[2021-09-22] MEDS: amLODIPine BESYLATE 10 MG TABLET (FP) PO SCH (09:24)
[2021-09-22 09:34] LABS: ALBUMIN 2.7 g/dl (3.4-5.0); BLOOD UREA NITROGEN 56.8 mg/dL (7-18); CALCIUM 8.3 mg/dL (8.5-10.1); MAGNESIUM 2.2 mg/dL (1.8-2.4)
[2021-09-22 09:36] LABS: CREATININE 3.9 mg/dL (0.55-1.3)
[2021-09-22 09:38] LABS: BILIRUBIN,TOTAL 2.1 mg/dL (0.2-1); TOT PROT 6.6 g/dl (6.4-8.2)
[2021-09-22] MEDS: METOPROLOL TARTRATE 50 MG TABLET (FP) PO SCH ×2 (10:27→22:12)
[2021-09-22] MEDS: COLLAGENASE CLOSTRIDIUM HIST. 30 GRAMS TUBE TP SCH (10:27)
[2021-09-22 11:09] LABS: PLATELET COUNT 30 10^3/uL (134-434)
[2021-09-22 11:10] LABS: ANISOCYTOSIS 0; MACROCYTOSIS 0
[2021-09-22] MEDS: methylPREDNISolone NA SUCC 40 MG/1 ML VIAL IVPUSH SCH ×3 (13:16→17:42)
[2021-09-22] MEDS: ALBUTEROL SO4 2.5/IPRATROPIUM 0.5 INH SOL 3 ML VIAL.NEB. NEB PRN (15:41)
[2021-09-22] MEDS ORDERED: guaiFENesin/D-METHORPHAN HB 10 ML UNIT-DOSE CUPS PO PRN (17:41)
[2021-09-22] MEDS ORDERED: SODIUM CHLORIDE 250 ML IV PRN (19:16)
[2021-09-23] MEDS ORDERED: DEXTROSE 5%-WATER - 50 ML IVPB ONE ×3 (00:57→17:19)
[2021-09-23] MEDS ORDERED: PIPERACILLIN/TAZOBACTAM 2.25 GM VIAL IVPB ONE ×3 (00:57→17:18)
[2021-09-23] MEDS: PIPERACILLIN/TAZOB 2.25 GM 2.25 GM in DEXTROSE 5%-WATER - 50 ML IVPB SCH ×3 (01:30→17:29)
[2021-09-23] MEDS: methylPREDNISolone NA SUCC 40 MG/1 ML VIAL IVPUSH SCH ×3 (01:30→17:29)
[2021-09-23 05:44] LABS: BASO % 0.1 % (0-2.0); HEMATOCRIT 22.8 % (35.4-49); HEMOGLOBIN 7.5 GM/dL (11.7-16.9); LYMPH % 6.4 % (8-40); MCH 28.1 pg (25.7-33.7); MCHC 32.8 g/dl (32.0-35.9); MEAN CELL VOLUME 85.6 fl (80-96); MEAN PLT VOLUME 10.9 fl (7.5-11.1); MONO % 4.4 % (3.8-10.2); NEUT % 89.1 % (42.8-82.8); RBC 2.66 M/mm3 (4.00-5.60); RDW 19.5 % (11.9-15.9); WHITE BLOOD COUNT 7.4 K/mm3 (4.0-10.0)
[2021-09-23 05:52] LABS: INR 1.23 (0.83-1.09); PROTHROMBIN TIME (PATIENT) 14.2 SEC (9.7-13.0)
[2021-09-23 05:58] LABS: PLATELET COUNT 25 10^3/uL (134-434)
[2021-09-23] MEDS: FUROSEMIDE 100 MG/10 ML INJECTABLE VIAL IVPB SCH ×2 (06:00→14:42)
[2021-09-23] MEDS: INSULIN SLIDING SCALE (NOVOLOG) 1 VIAL SQ SCH ×3 (06:00→16:39)
[2021-09-23] MEDS: INSULIN (LEVEMIR) 100 UNITS/ML UNITS SQ SCH ×2 (06:01→22:51)
[2021-09-23] MEDS: ALBUTEROL SO4 2.5/IPRATROPIUM 0.5 INH SOL 3 ML VIAL.NEB. NEB PRN (06:04)
[2021-09-23 06:05] LABS: CALCIUM 7.8 mg/dL (8.5-10.1)
[2021-09-23 06:06] LABS: ALBUMIN 2.5 g/dl (3.4-5.0); MAGNESIUM 2.2 mg/dL (1.8-2.4)
[2021-09-23 06:10] LABS: BILIRUBIN,TOTAL 1.9 mg/dL (0.2-1); TOT PROT 6.4 g/dl (6.4-8.2)
[2021-09-23] MEDS: CALCIUM ACETATE 667 MG CAPSULE (FP) PO SCH ×3 (09:24→16:39)
[2021-09-23] MEDS: MINERAL OIL/PET HY-PHL TOPICAL OINTMENT 454 GM JAR TP SCH ×2 (09:24→22:51)
[2021-09-23] MEDS: amLODIPine BESYLATE 10 MG TABLET (FP) PO SCH (09:24)
[2021-09-23] MEDS: METOPROLOL TARTRATE 50 MG TABLET (FP) PO SCH ×2 (09:24→22:52)
[2021-09-23] MEDS: guaiFENesin/D-METHORPHAN TAB.ER.12H PO SCH ×2 (09:24→22:53)
[2021-09-23] MEDS: COLLAGENASE CLOSTRIDIUM HIST. 30 GRAMS TUBE TP SCH (09:24)
[2021-09-24] MEDS ORDERED: DEXTROSE 5%-WATER - 50 ML IVPB ONE ×3 (01:10→15:44)
[2021-09-24] MEDS ORDERED: PIPERACILLIN/TAZOBACTAM 2.25 GM VIAL IVPB ONE ×4 (01:10→15:44)
[2021-09-24] MEDS: PIPERACILLIN/TAZOB 2.25 GM 2.25 GM in DEXTROSE 5%-WATER - 50 ML IVPB SCH ×3 (02:11→17:07)
[2021-09-24] MEDS: methylPREDNISolone NA SUCC 40 MG/1 ML VIAL IVPUSH SCH ×3 (02:11→21:52)
[2021-09-24] MEDS ORDERED: MELATONIN 1 MG TABLET PO ONE (04:46)
[2021-09-24] MEDS: FUROSEMIDE 100 MG/10 ML INJECTABLE VIAL IVPB SCH ×2 (06:41→13:05)
[2021-09-24] MEDS: INSULIN (LEVEMIR) 100 UNITS/ML UNITS SQ SCH ×2 (06:45→21:56)
[2021-09-24] MEDS: INSULIN SLIDING SCALE (NOVOLOG) 1 VIAL SQ SCH ×3 (06:45→16:39)
[2021-09-24 08:26] LABS: HEMATOCRIT 24.3 % (35.4-49); HEMOGLOBIN 7.8 GM/dL (11.7-16.9); MCH 27.3 pg (25.7-33.7); MCHC 32.1 g/dl (32.0-35.9); MEAN CELL VOLUME 85.2 fl (80-96); MEAN PLT VOLUME 10.3 fl (7.5-11.1); PLATELET COUNT 55 10^3/uL (134-434); RBC 2.85 M/mm3 (4.00-5.60); RDW 19.4 % (11.9-15.9); WHITE BLOOD COUNT 13.2 K/mm3 (4.0-10.0)
[2021-09-24 08:44] LABS: ALBUMIN 2.5 g/dl (3.4-5.0); CALCIUM 7.5 mg/dL (8.5-10.1); MAGNESIUM 2.2 mg/dL (1.8-2.4)
[2021-09-24 08:47] LABS: CREATININE 4.4 mg/dL (0.55-1.3)
[2021-09-24 08:49] LABS: ALBUMIN 2.6 g/dl (3.4-5.0); BILIRUBIN,TOTAL 1.7 mg/dL (0.2-1); TOT PROT 6.8 g/dl (6.4-8.2)
[2021-09-24 08:52] LABS: BILIRUBIN,DIRECT 0.9 mg/dL (0.0-0.2)
[2021-09-24 08:54] LABS: BILIRUBIN,TOTAL 1.8 mg/dL (0.2-1); TOT PROT 6.7 g/dl (6.4-8.2)
[2021-09-24] MEDS: CALCIUM ACETATE 667 MG CAPSULE (FP) PO SCH ×3 (09:15→16:40)
[2021-09-24] MEDS: MINERAL OIL/PET HY-PHL TOPICAL OINTMENT 454 GM JAR TP SCH ×2 (09:15→21:52)
[2021-09-24] MEDS: METOPROLOL TARTRATE 50 MG TABLET (FP) PO SCH ×2 (09:15→21:51)
[2021-09-24] MEDS: amLODIPine BESYLATE 10 MG TABLET (FP) PO SCH (09:15)
[2021-09-24] MEDS: guaiFENesin/D-METHORPHAN TAB.ER.12H PO SCH ×2 (09:15→21:52)
[2021-09-24] MEDS: COLLAGENASE CLOSTRIDIUM HIST. 30 GRAMS TUBE TP SCH (09:16)
[2021-09-24 09:53] LABS: ANISOCYTOSIS 1+; MACROCYTOSIS 0
[2021-09-25] MEDS ORDERED: PIPERACILLIN/TAZOBACTAM 2.25 GM VIAL IVPB ONE ×3 (03:48→17:01)
[2021-09-25] MEDS ORDERED: DEXTROSE 5%-WATER - 50 ML IVPB ONE ×3 (03:49→17:01)
[2021-09-25] MEDS: PIPERACILLIN/TAZOB 2.25 GM 2.25 GM in DEXTROSE 5%-WATER - 50 ML IVPB SCH ×3 (03:51→17:10)
[2021-09-25] MEDS: INSULIN (LEVEMIR) 100 UNITS/ML UNITS SQ SCH ×2 (06:03→21:47)
[2021-09-25] MEDS: FUROSEMIDE 100 MG/10 ML INJECTABLE VIAL IVPB SCH (06:26)
[2021-09-25] MEDS: INSULIN SLIDING SCALE (NOVOLOG) 1 VIAL SQ SCH ×3 (06:27→17:12)
[2021-09-25] MEDS: CALCIUM ACETATE 667 MG CAPSULE (FP) PO SCH ×3 (09:26→16:56)
[2021-09-25] MEDS: METOPROLOL TARTRATE 50 MG TABLET (FP) PO SCH ×2 (09:47→21:52)
[2021-09-25] MEDS: amLODIPine BESYLATE 10 MG TABLET (FP) PO SCH (09:47)
[2021-09-25] MEDS: COLLAGENASE CLOSTRIDIUM HIST. 30 GRAMS TUBE TP SCH (09:54)
[2021-09-25] MEDS: guaiFENesin/D-METHORPHAN TAB.ER.12H PO SCH ×2 (09:54→21:35)
[2021-09-25] MEDS: MINERAL OIL/PET HY-PHL TOPICAL OINTMENT 454 GM JAR TP SCH ×2 (09:54→21:50)
[2021-09-25] MEDS: methylPREDNISolone NA SUCC 40 MG/1 ML VIAL IVPUSH SCH ×2 (09:54→21:41)
[2021-09-25] MEDS ORDERED: FUROSEMIDE 40 MG TABLET (FP) PO SCH (10:00)
[2021-09-25 11:31] LABS: HEMATOCRIT 23.9 % (35.4-49); HEMOGLOBIN 7.8 GM/dL (11.7-16.9); MCH 27.7 pg (25.7-33.7); MCHC 32.6 g/dl (32.0-35.9); PLATELET COUNT 51 10^3/uL (134-434); RBC 2.81 M/mm3 (4.00-5.60); RDW 19.9 % (11.9-15.9); WHITE BLOOD COUNT 10.7 K/mm3 (4.0-10.0)
[2021-09-25 11:38] LABS: INR 1.17 (0.83-1.09); PROTHROMBIN TIME (PATIENT) 13.5 SEC (9.7-13.0)
[2021-09-25 11:41] LABS: ACTIVATED PTT 30.4 SECONDS (25.2-36.5)
[2021-09-25 11:59] LABS: CALCIUM 7.5 mg/dL (8.5-10.1)
[2021-09-25 12:00] LABS: ALBUMIN 2.5 g/dl (3.4-5.0); MAGNESIUM 2.7 mg/dL (1.8-2.4)
[2021-09-25 12:03] LABS: CREATININE 5.9 mg/dL (0.55-1.3)
[2021-09-25 12:04] LABS: BILIRUBIN,TOTAL 1.4 mg/dL (0.2-1); TOT PROT 6.6 g/dl (6.4-8.2)
[2021-09-25 12:13] LABS: ANISOCYTOSIS 1+; MACROCYTOSIS 1+
[2021-09-25 12:16] LABS: PHOSPHOROUS 7.2 mg/dL (2.5-4.9)
[2021-09-25 12:17] LABS: BLOOD UREA NITROGEN 92.6 mg/dL (7-18)
[2021-09-25] MEDS ORDERED: SODIUM CHLORIDE 250 ML IV PRN ×2 (12:27→20:13)
[2021-09-25] MEDS ORDERED: EPOETIN ALFA-EPBX 10,000 UNIT/ML VIAL IVPUSH ONE (13:00)
[2021-09-25] MEDS ORDERED: LIDOCAINE HCL 1%, 10 MG/ML (20ML VIAL) ONE (16:11)
[2021-09-25] MEDS ORDERED: HEPARIN NA (PORCINE) 5,000 UNITS/ML 1ML VIAL ONE (16:12)
[2021-09-25] MEDS ORDERED: MIDAZOLAM HCL 2 MG/2 ML SINGLE DOSE VIAL ONE (19:06)
[2021-09-25] MEDS ORDERED: LIDOCAINE HCL 1%, 10 MG/ML (20ML VIAL) NR ONE ×2 (19:31)
[2021-09-25] MEDS ORDERED: MELATONIN 1 MG TABLET PO ONE (20:13)
[2021-09-25] MEDS ORDERED: guaiFENesin/D-METHORPHAN HB 10 ML UNIT-DOSE CUPS PO PRN (20:13)
[2021-09-26] MEDS ORDERED: DEXTROSE 5%-WATER - 50 ML IVPB ONE ×3 (01:30→17:04)
[2021-09-26] MEDS ORDERED: PIPERACILLIN/TAZOBACTAM 2.25 GM VIAL IVPB ONE ×3 (01:30→17:04)
[2021-09-26] MEDS: PIPERACILLIN/TAZOB 2.25 GM 2.25 GM in DEXTROSE 5%-WATER - 50 ML IVPB SCH ×3 (02:05→18:32)
[2021-09-26] MEDS: INSULIN (LEVEMIR) 100 UNITS/ML UNITS SQ SCH ×2 (06:25→22:02)
[2021-09-26] MEDS: INSULIN SLIDING SCALE (NOVOLOG) 1 VIAL SQ SCH ×4 (06:26→23:01)
[2021-09-26 07:05] LABS: INR 1.19 (0.83-1.09); PROTHROMBIN TIME (PATIENT) 13.7 SEC (9.7-13.0)
[2021-09-26 07:06] LABS: HEMATOCRIT 24.4 % (35.4-49); MCH 27.8 pg (25.7-33.7); MCHC 32.8 g/dl (32.0-35.9); MEAN CELL VOLUME 84.9 fl (80-96); MEAN PLT VOLUME 9.9 fl (7.5-11.1); PLATELET COUNT 61 10^3/uL (134-434); RBC 2.87 M/mm3 (4.00-5.60); RDW 20.5 % (11.9-15.9); WHITE BLOOD COUNT 10.1 K/mm3 (4.0-10.0)
[2021-09-26 07:13] LABS: CALCIUM 7.1 mg/dL (8.5-10.1)
[2021-09-26 07:14] LABS: ALBUMIN 2.4 g/dl (3.4-5.0); MAGNESIUM 2.5 mg/dL (1.8-2.4)
[2021-09-26 07:18] LABS: BILIRUBIN,TOTAL 1.2 mg/dL (0.2-1); TOT PROT 6.4 g/dl (6.4-8.2)
[2021-09-26 07:55] LABS: BLOOD UREA NITROGEN 56.4 mg/dL (7-18)
[2021-09-26] MEDS: CALCIUM ACETATE 667 MG CAPSULE (FP) PO SCH ×3 (08:26→17:07)
[2021-09-26] MEDS: ALBUTEROL SO4 2.5/IPRATROPIUM 0.5 INH SOL 3 ML VIAL.NEB. NEB PRN ×2 (09:05→11:48)
[2021-09-26] MEDS: FUROSEMIDE 40 MG TABLET (FP) PO SCH (09:45)
[2021-09-26] MEDS: METOPROLOL TARTRATE 50 MG TABLET (FP) PO SCH ×2 (09:45→22:05)
[2021-09-26] MEDS: amLODIPine BESYLATE 10 MG TABLET (FP) PO SCH (09:46)
[2021-09-26] MEDS: methylPREDNISolone NA SUCC 40 MG/1 ML VIAL IVPUSH SCH (09:46)
[2021-09-26] MEDS: guaiFENesin/D-METHORPHAN TAB.ER.12H PO SCH ×2 (09:46→22:05)
[2021-09-26 10:37] LABS: ANISOCYTOSIS 2+; MACROCYTOSIS 0; TEAR DROP CELLS 1+
[2021-09-26] MEDS ORDERED: INSULIN (NOVOLOG) ASPART 100 UNITS/ML 10ML VIAL ONE (11:16)
[2021-09-26] MEDS: COLLAGENASE CLOSTRIDIUM HIST. 30 GRAMS TUBE TP SCH (11:58)
[2021-09-26] MEDS: MINERAL OIL/PET HY-PHL TOPICAL OINTMENT 454 GM JAR TP SCH ×2 (11:59→23:02)
[2021-09-27] MEDS ORDERED: PIPERACILLIN/TAZOBACTAM 2.25 GM VIAL IVPB ONE ×3 (01:15→18:02)
[2021-09-27] MEDS ORDERED: DEXTROSE 5%-WATER - 50 ML IVPB ONE ×3 (01:16→18:02)
[2021-09-27] MEDS: PIPERACILLIN/TAZOB 2.25 GM 2.25 GM in DEXTROSE 5%-WATER - 50 ML IVPB SCH ×3 (06:00→18:19)
[2021-09-27] MEDS: INSULIN (LEVEMIR) 100 UNITS/ML UNITS SQ SCH ×2 (06:12→23:31)
[2021-09-27] MEDS: INSULIN SLIDING SCALE (NOVOLOG) 1 VIAL SQ SCH ×4 (06:15→23:32)
[2021-09-27] MEDS ORDERED: EPOETIN ALFA-EPBX 10,000 UNIT/ML VIAL SQ ONE ×2 (07:00→09:09)
[2021-09-27] MEDS ORDERED: SODIUM CHLORIDE 250 ML IV PRN (07:00)
[2021-09-27] MEDS: CALCIUM ACETATE 667 MG CAPSULE (FP) PO SCH ×3 (08:25→17:45)
[2021-09-27] MEDS: METOPROLOL TARTRATE 50 MG TABLET (FP) PO SCH ×2 (10:00→22:57)
[2021-09-27] MEDS: amLODIPine BESYLATE 10 MG TABLET (FP) PO SCH (10:00)
[2021-09-27] MEDS: MINERAL OIL/PET HY-PHL TOPICAL OINTMENT 454 GM JAR TP SCH ×2 (10:01→22:56)
[2021-09-27] MEDS: guaiFENesin/D-METHORPHAN TAB.ER.12H PO SCH ×2 (10:01→22:57)
[2021-09-27] MEDS: COLLAGENASE CLOSTRIDIUM HIST. 30 GRAMS TUBE TP SCH (10:02)
[2021-09-27 11:46] LABS: HEMATOCRIT 25.8 % (35.4-49); HEMOGLOBIN 8.2 GM/dL (11.7-16.9); MCH 27.5 pg (25.7-33.7); MEAN CELL VOLUME 85.9 fl (80-96); MEAN PLT VOLUME 9.8 fl (7.5-11.1); PLATELET COUNT 100 10^3/uL (134-434); RDW 21.1 % (11.9-15.9); WHITE BLOOD COUNT 17.3 K/mm3 (4.0-10.0)
[2021-09-27 12:08] LABS: ALBUMIN 2.6 g/dl (3.4-5.0)
[2021-09-27 12:11] LABS: CREATININE 5.8 mg/dL (0.55-1.3)
[2021-09-27 12:13] LABS: BILIRUBIN,TOTAL 1.3 mg/dL (0.2-1); TOT PROT 6.7 g/dl (6.4-8.2)
[2021-09-28] MEDS ORDERED: PIPERACILLIN/TAZOBACTAM 2.25 GM VIAL IVPB ONE ×3 (01:53→17:00)
[2021-09-28] MEDS ORDERED: DEXTROSE 5%-WATER - 50 ML IVPB ONE ×3 (01:53→17:00)
[2021-09-28] MEDS: PIPERACILLIN/TAZOB 2.25 GM 2.25 GM in DEXTROSE 5%-WATER - 50 ML IVPB SCH ×3 (06:00→17:21)
[2021-09-28] MEDS: INSULIN (LEVEMIR) 100 UNITS/ML UNITS SQ SCH ×2 (06:18→22:01)
[2021-09-28] MEDS: INSULIN SLIDING SCALE (NOVOLOG) 1 VIAL SQ SCH ×4 (06:18→22:04)
[2021-09-28 07:20] LABS: CALCIUM 7.2 mg/dL (8.5-10.1)
[2021-09-28 07:21] LABS: ALBUMIN 2.5 g/dl (3.4-5.0); MAGNESIUM 2.1 mg/dL (1.8-2.4)
[2021-09-28 07:24] LABS: CREATININE 4.1 mg/dL (0.55-1.3)
[2021-09-28 07:26] LABS: BILIRUBIN,TOTAL 1.2 mg/dL (0.2-1); TOT PROT 6.4 g/dl (6.4-8.2)
[2021-09-28 07:35] LABS: BLOOD UREA NITROGEN 48.9 mg/dL (7-18)
[2021-09-28] MEDS: CALCIUM ACETATE 667 MG CAPSULE (FP) PO SCH ×3 (09:29→17:21)
[2021-09-28] MEDS: amLODIPine BESYLATE 10 MG TABLET (FP) PO SCH (09:29)
[2021-09-28] MEDS: FUROSEMIDE 40 MG TABLET (FP) PO SCH (09:29)
[2021-09-28] MEDS: MINERAL OIL/PET HY-PHL TOPICAL OINTMENT 454 GM JAR TP SCH ×2 (09:30→22:02)
[2021-09-28] MEDS: METOPROLOL TARTRATE 50 MG TABLET (FP) PO SCH ×2 (09:30→22:03)
[2021-09-28] MEDS: guaiFENesin/D-METHORPHAN TAB.ER.12H PO SCH ×2 (09:30→22:04)
[2021-09-28] MEDS: COLLAGENASE CLOSTRIDIUM HIST. 30 GRAMS TUBE TP SCH (09:31)
[2021-09-28 19:12] LABS: SARS-CoV-2 NAA Not Detected (Not Detected)
[2021-09-29] MEDS: PIPERACILLIN/TAZOB 2.25 GM 2.25 GM in DEXTROSE 5%-WATER - 50 ML IVPB SCH ×3 (02:18→18:43)
[2021-09-29] MEDS ORDERED: PIPERACILLIN/TAZOBACTAM 2.25 GM VIAL IVPB ONE ×3 (05:19→17:52)
[2021-09-29] MEDS ORDERED: DEXTROSE 5%-WATER - 50 ML IVPB ONE ×3 (05:19→17:53)
[2021-09-29] MEDS: INSULIN SLIDING SCALE (NOVOLOG) 1 VIAL SQ SCH ×4 (06:23→21:15)
[2021-09-29] MEDS: INSULIN (LEVEMIR) 100 UNITS/ML UNITS SQ SCH ×2 (06:24→21:15)
[2021-09-29] MEDS ORDERED: SODIUM CHLORIDE 250 ML IV PRN ×3 (07:00→10:17)
[2021-09-29 07:46] LABS: CALCIUM 7.7 mg/dL (8.5-10.1)
[2021-09-29 07:47] LABS: ALBUMIN 2.5 g/dl (3.4-5.0); BLOOD UREA NITROGEN 68.5 mg/dL (7-18); MAGNESIUM 2.5 mg/dL (1.8-2.4)
[2021-09-29 07:50] LABS: CREATININE 5.5 mg/dL (0.55-1.3)
[2021-09-29 07:51] LABS: BILIRUBIN,TOTAL 1.2 mg/dL (0.2-1); TOT PROT 6.3 g/dl (6.4-8.2)
[2021-09-29] MEDS: CALCIUM ACETATE 667 MG CAPSULE (FP) PO SCH ×3 (09:41→18:43)
[2021-09-29] MEDS: COLLAGENASE CLOSTRIDIUM HIST. 30 GRAMS TUBE TP SCH (09:42)
[2021-09-29] MEDS: METOPROLOL TARTRATE 50 MG TABLET (FP) PO SCH ×2 (09:42→21:08)
[2021-09-29] MEDS: guaiFENesin/D-METHORPHAN TAB.ER.12H PO SCH ×2 (09:42→21:08)
[2021-09-29] MEDS: amLODIPine BESYLATE 10 MG TABLET (FP) PO SCH (09:42)
[2021-09-29] MEDS: MINERAL OIL/PET HY-PHL TOPICAL OINTMENT 454 GM JAR TP SCH ×2 (09:42→21:19)
[2021-09-29] MEDS: FUROSEMIDE 40 MG TABLET (FP) PO SCH (09:42)
[2021-09-29 14:13] VITALS: BMI 28.0
[2021-09-30] MEDS ORDERED: PIPERACILLIN/TAZOBACTAM 2.25 GM VIAL IVPB ONE ×2 (04:23→10:30)
[2021-09-30] MEDS ORDERED: DEXTROSE 5%-WATER - 50 ML IVPB ONE ×2 (04:23→10:30)
[2021-09-30] MEDS: PIPERACILLIN/TAZOB 2.25 GM 2.25 GM in DEXTROSE 5%-WATER - 50 ML IVPB SCH ×2 (04:36→10:36)
[2021-09-30] MEDS: INSULIN (LEVEMIR) 100 UNITS/ML UNITS SQ SCH (06:29)
[2021-09-30] MEDS: INSULIN SLIDING SCALE (NOVOLOG) 1 VIAL SQ SCH ×3 (06:29→17:19)
[2021-09-30 07:34] LABS: BLOOD UREA NITROGEN 80.3 mg/dL (7-18); CALCIUM 7.4 mg/dL (8.5-10.1)
[2021-09-30 07:35] LABS: ALBUMIN 2.4 g/dl (3.4-5.0); MAGNESIUM 2.5 mg/dL (1.8-2.4)
[2021-09-30 07:38] LABS: CREATININE 6.6 mg/dL (0.55-1.3)
[2021-09-30 07:39] LABS: BILIRUBIN,TOTAL 1.2 mg/dL (0.2-1); TOT PROT 6.3 g/dl (6.4-8.2)
[2021-09-30] MEDS ORDERED: EPOETIN ALFA-EPBX 10,000 UNIT/ML VIAL IVPUSH ONE (08:00)
[2021-09-30 08:36] LABS: HEMATOCRIT 24.8 % (35.4-49); HEMOGLOBIN 7.9 GM/dL (11.7-16.9); MCH 27.8 pg (25.7-33.7); MCHC 32.1 g/dl (32.0-35.9); MEAN CELL VOLUME 86.4 fl (80-96); MEAN PLT VOLUME 9.4 fl (7.5-11.1); PLATELET COUNT 125 10^3/uL (134-434); RBC 2.86 M/mm3 (4.00-5.60); RDW 21.4 % (11.9-15.9); WHITE BLOOD COUNT 13.6 K/mm3 (4.0-10.0)
[2021-09-30] MEDS: CALCIUM ACETATE 667 MG CAPSULE (FP) PO SCH ×3 (08:58→17:19)
[2021-09-30 09:09] LABS: BLOOD UREA NITROGEN 80.1 mg/dL (7-18)
[2021-09-30 09:11] LABS: CALCIUM 7.5 mg/dL (8.5-10.1)
[2021-09-30 09:12] LABS: CREATININE 6.6 mg/dL (0.55-1.3); PHOSPHOROUS 6.5 mg/dL (2.5-4.9)
[2021-09-30] MEDS ORDERED: VITAMIN B COMP W-C 1 EA TABLET (NEPHRO-VITE) PO SCH (10:00)
[2021-09-30] MEDS: METOPROLOL TARTRATE 50 MG TABLET (FP) PO SCH (10:35)
[2021-09-30] MEDS: guaiFENesin/D-METHORPHAN TAB.ER.12H PO SCH (10:36)
[2021-09-30] MEDS: amLODIPine BESYLATE 10 MG TABLET (FP) PO SCH (10:36)
[2021-09-30] MEDS: MINERAL OIL/PET HY-PHL TOPICAL OINTMENT 454 GM JAR TP SCH (10:36)
[2021-09-30] MEDS: COLLAGENASE CLOSTRIDIUM HIST. 30 GRAMS TUBE TP SCH (10:37)
[2021-09-30] MEDS ORDERED: CEFAZOLIN 2 GM in DEXTROSE 5%-WATER - 100 ML IVPB ONE (11:21)
[2021-09-30 15:23] VITALS: BP 128/69; PULSE 68; TEMP 97.8
== END 2021-09-30 18:50 | DRG 291 ==
LOC: JER 11:31 → JERBED 15:22 → J4W 18:57 → OBSVTOIN 09-15 13:52 → INTOOBSV 09-15 13:52 → JICU 09-17 12:00 → J8W 09-20 23:21 → J4W 09-22 18:11
PROVIDERS: ADMIT Internal Medicine; ATTEND Nurse Practitioner Acute Care
PROC: 02HV33Z Insertion of Infusion Device into Superior Vena Cava, Percutaneous Approach (ICD-10-PCS; principal; 2021-09-17)
PROC: B548ZZA Ultrasonography of Superior Vena Cava, Guidance (ICD-10-PCS; 2021-09-17)
PROC: 5A1D70Z Performance of Urinary Filtration, Intermittent, Less than 6 Hours Per Day (ICD-10-PCS; 2021-09-24)
PROC: 02HV33Z Insertion of Infusion Device into Superior Vena Cava, Percutaneous Approach (ICD-10-PCS; 2021-09-25)
PROC: 0JPT3XZ Removal of Tunneled Vascular Access Device from Trunk Subcutaneous Tissue and Fascia, Percutaneous Approach (ICD-10-PCS; 2021-09-27)
DX: I13.2 Hypertensive heart and chronic kidney disease with heart failure and with stage 5 chronic kidney disease, or end stage renal disease (principal); I50.23 Acute on chronic systolic (congestive) heart failure; J96.01 Acute respiratory failure with hypoxia; G93.41 Metabolic encephalopathy; A41.9 Sepsis, unspecified organism; N18.6 End stage renal disease; K72.00 Acute and subacute hepatic failure without coma; E87.1 Hypo-osmolality and hyponatremia; N17.9 Acute kidney failure, unspecified; N18.4 Chronic kidney disease, stage 4 (severe); E87.2 Acidosis; M86.8X7 Other osteomyelitis, ankle and foot; D68.9 Coagulation defect, unspecified; I50.22 Chronic systolic (congestive) heart failure; I25.10 Atherosclerotic heart disease of native coronary artery without angina pectoris; E11.22 Type 2 diabetes mellitus with diabetic chronic kidney disease; E78.5 Hyperlipidemia, unspecified; K21.9 Gastro-esophageal reflux disease without esophagitis; I25.2 Old myocardial infarction; Z79.4 Long term (current) use of insulin; N40.0 Benign prostatic hyperplasia without lower urinary tract symptoms; H54.40 Blindness, one eye, unspecified eye; Z95.1 Presence of aortocoronary bypass graft; E11.65 Type 2 diabetes mellitus with hyperglycemia; R94.31 Abnormal electrocardiogram [ECG] [EKG]; E66.9 Obesity, unspecified; Z68.28 Body mass index [BMI] 28.0-28.9, adult; R74.01 Elevation of levels of liver transaminase levels; E87.5 Hyperkalemia; D64.9 Anemia, unspecified; E11.69 Type 2 diabetes mellitus with other specified complication; E11.621 Type 2 diabetes mellitus with foot ulcer; L97.519 Non-pressure chronic ulcer of other part of right foot with unspecified severity; R79.89 Other specified abnormal findings of blood chemistry; E11.40 Type 2 diabetes mellitus with diabetic neuropathy, unspecified; I27.20 Pulmonary hypertension, unspecified; E11.51 Type 2 diabetes mellitus with diabetic peripheral angiopathy without gangrene
CPT/HCPCS: 15275; 36415; 36430; 36511; 36589; 36600; 71045-TC-FY; 76705-TC; 80048; 80053; 80076; 81003; 82010; 82140; 82550; 82803; 82962; 83036; 83615; 83735; 83880; 83930; 84100; 84439; 84443; 84484; 85025; 85027; 85384; 85610; 85730; 86022; 86705; 86707; 86708; 86803; 87040; 87086; 87340; 87350; 87517; 93005; 93010; 93306-TC; 93971; 94640; 94660; 94760; 96365; 97116-GP; 97162-GP; 99285-25; C9803-CS; G0378; J1644; P9034; P9038; Q4196; Q5106; U0003; U0005

== ENCOUNTER 2021-10-07 14:50 | Inpatient (IN) | payer OTHER ==
[2021-10-07 16:34] LABS: BASO % 0.7 % (0-2.0); EOS % 0.6 % (0-4.5); HEMATOCRIT 27.3 % (35.4-49); HEMOGLOBIN 8.6 GM/dL (11.7-16.9); LYMPH % 6.7 % (8-40); MCH 27.8 pg (25.7-33.7); MCHC 31.7 g/dl (32.0-35.9); MONO % 6.4 % (3.8-10.2); NEUT % 85.6 % (42.8-82.8); PLATELET COUNT 156 10^3/uL (134-434); RDW 21.8 % (11.9-15.9); WHITE BLOOD COUNT 6.5 K/mm3 (4.0-10.0)
[2021-10-07 16:51] LABS: CHLORIDE 89 mmol/L (98-107); SODIUM 127 mmol/L (136-145)
[2021-10-07 16:54] LABS: ANION GAP 22 MMOL/L (8-16); CO2 17 mmol/L (21-32); GLUCOSE,RANDOM 54 mg/dL (74-106)
[2021-10-07 16:57] LABS: CREATININE 5.8 mg/dL (0.55-1.3); SGOT/AST 64 U/L (15-37); SGPT/ALT 36 U/L (13-61)
[2021-10-07 16:58] LABS: BILIRUBIN,TOTAL 0.8 mg/dL (0.2-1); TOT PROT 7.6 g/dl (6.4-8.2)
[2021-10-07 17:00] LABS: ALK PHOS 188 U/L (45-117)
[2021-10-07 17:02] LABS: N-TERMINAL BNP 33651.6 pg/ml (5-125)
[2021-10-07 17:12] LABS: BLOOD UREA NITROGEN 41.2 mg/dL (7-18); CALCIUM 8.9 mg/dL (8.5-10.1)
[2021-10-07] MEDS ORDERED: ASPIRIN 81 MG CHEWABLE TABLETS PO ONE (17:27)
[2021-10-07 18:36] LABS: ANISOCYTOSIS 1+; MACROCYTOSIS 0
[2021-10-07] MEDS ORDERED: ASPIRIN 81 MG CHEWABLE TABLETS ONE (18:36)
[2021-10-07] MEDS ORDERED: FUROSEMIDE 40 MG/4 ML INJECTABLE VIAL IVPUSH ONE (19:00)
[2021-10-07 19:05] LABS: CALCIUM 8.6 mg/dL (8.5-10.1)
[2021-10-07 19:06] LABS: BLOOD UREA NITROGEN 42.6 mg/dL (7-18)
[2021-10-07 19:09] LABS: CREATININE 6.1 mg/dL (0.55-1.3)
[2021-10-07] MEDS ORDERED: FUROSEMIDE 40 MG/4 ML INJECTABLE VIAL ONE (19:20)
[2021-10-07] MEDS ORDERED: guaiFENesin/D-METHORPHAN HB 10 ML UNIT-DOSE CUPS PO PRN (21:18)
[2021-10-07] MEDS ORDERED: INSULIN SLIDING SCALE (NOVOLOG) 1 VIAL SQ SCH (22:00)
[2021-10-07 22:05] LABS: LACTIC ACID 12.8 mmol/L (0.4-2.0)
[2021-10-07] MEDS ORDERED: LACTATED RINGERS SOLUTION 1000 ML INFUS.BAG IV ONE (22:31)
[2021-10-07 23:03] LABS: MAGNESIUM 2.1 mg/dL (1.8-2.4)
[2021-10-07 23:06] LABS: PHOSPHOROUS 5.4 mg/dL (2.5-4.9)
[2021-10-07] MEDS: HEPARIN NA (PORCINE) 5,000 UNITS/ML 1ML VIAL SQ SCH (23:19)
[2021-10-07] MEDS: METOPROLOL TARTRATE 50 MG TABLET (FP) PO SCH (23:20)
[2021-10-08] MEDS ORDERED: SODIUM CHLORIDE 250 ML IV PRN (00:49)
[2021-10-08] MEDS ORDERED: MELATONIN 5 MG TABLETS PO SCH (02:51)
[2021-10-08] MEDS ORDERED: QUEtiapine FUMARATE 25 MG TABLET PO ONE (03:11)
[2021-10-08] MEDS ORDERED: VANCOMYCIN 1 GM in D5W (PRE-DOCKED) 1,000 MG/250 ML IVPB ONE (03:29)
[2021-10-08] MEDS ORDERED: PIPERACILLIN/TAZOB 3.375 GM 3.375 GM in DEXTROSE 5%-WATER - 50 ML IVPB SCH (03:30)
[2021-10-08] MEDS ORDERED: LACTATED RINGERS SOLUTION 1000 ML INFUS.BAG IV ONE ×4 (04:30→20:16)
[2021-10-08 04:32] LABS: LACTIC ACID 15.3 mmol/L (0.4-2.0)
[2021-10-08] MEDS ORDERED: PIPERACILLIN/TAZOBACTAM 2.25 GM VIAL IVPB ONE ×3 (05:24→16:12)
[2021-10-08] MEDS ORDERED: DEXTROSE 5%-WATER - 50 ML IVPB ONE ×3 (05:24→16:12)
[2021-10-08] MEDS: HEPARIN NA (PORCINE) 5,000 UNITS/ML 1ML VIAL SQ SCH ×3 (05:28→21:08)
[2021-10-08] MEDS: PIPERACILLIN/TAZOB 2.25 GM 2.25 GM in DEXTROSE 5%-WATER - 50 ML IVPB SCH ×3 (05:31→18:05)
[2021-10-08 05:48] LABS: ARTERIAL BLD GAS O2 SATURATION 89.6 % (95-98); ARTERIAL BLOOD GAS BASE EXCESS -18.7 mmol/L (-2-2); ARTERIAL BLOOD GAS PO2 73.9 mmHg (80-100)
[2021-10-08 05:56] LABS: ALLENS TEST POSITIVE
[2021-10-08 05:57] LABS: ARTERIAL BLOOD GAS pH 7.111 (7.350-7.450)
[2021-10-08] MEDS ORDERED: DEXTROSE 50%-WATER - 25 GM/50 ML VIAL IVPUSH ONE ×2 (06:10→20:16)
[2021-10-08] MEDS ORDERED: NOREPINEPHRINE D5W PREMIX 16,000 MCG/500 ML BAG IVPB SCH (06:30)
[2021-10-08] MEDS ORDERED: VASOPRESSIN 40 UNITS/100 ML BAG IV SCH ×2 (07:30→12:26)
[2021-10-08] MEDS ORDERED: VANCOMYCIN 500 MG in DEXTROSE 5%-WATER - 100 ML IVPB ONE (07:53)
[2021-10-08 08:35] LABS: EPI CELLS >36 /uL (0-25.1); HYALINE CASTS 91 /uL (0-3.1); URINE APPEARANCE TURBID; URINE BACTERIA 896 /uL (0-1359); URINE BILIRUBIN NEGATIVE (NEGATIVE); URINE COLOR YELLOW; URINE GLUCOSE (UA) NEGATIVE (NEGATIVE); URINE KETONE NEGATIVE (NEGATIVE); URINE LEUK ESTERASE 3+ (NEGATIVE); URINE NITRITE NEGATIVE (NEGATIVE); URINE PROTEIN 3+ (NEGATIVE); URINE UROBILINOGEN 0.2 mg/dL (0.2-1.0); URINE WBC 37730 /uL (0-25.8)
[2021-10-08 08:55] LABS: BASO % 0.3 % (0-2.0); EOS % 0.1 % (0-4.5); HEMOGLOBIN 7.6 GM/dL (11.7-16.9); LYMPH % 4.7 % (8-40); MCH 27.9 pg (25.7-33.7); MCHC 30.3 g/dl (32.0-35.9); MEAN CELL VOLUME 92.3 fl (80-96); MEAN PLT VOLUME 9.5 fl (7.5-11.1); MONO % 5.2 % (3.8-10.2); NEUT % 89.7 % (42.8-82.8); PLATELET COUNT 132 10^3/uL (134-434); RDW 21.5 % (11.9-15.9); WHITE BLOOD COUNT 7.4 K/mm3 (4.0-10.0)
[2021-10-08 08:57] LABS: INR 1.28 (0.83-1.09); PROTHROMBIN TIME (PATIENT) 14.7 SEC (9.7-13.0)
[2021-10-08] MEDS ORDERED: EPOETIN ALFA-EPBX 10,000 UNIT/ML VIAL IVPUSH ONE (09:00)
[2021-10-08 09:05] LABS: CHLORIDE 89 mmol/L (98-107); SODIUM 127 mmol/L (136-145)
[2021-10-08 09:07] LABS: CALCIUM 7.9 mg/dL (8.5-10.1)
[2021-10-08 09:08] LABS: BLOOD UREA NITROGEN 48.9 mg/dL (7-18); CO2 10 mmol/L (21-32); GLUCOSE,RANDOM 94 mg/dL (74-106); MAGNESIUM 2.2 mg/dL (1.8-2.4)
[2021-10-08 09:11] LABS: CREATININE 6.5 mg/dL (0.55-1.3); PHOSPHOROUS 7.3 mg/dL (2.5-4.9); SGOT/AST 44 U/L (15-37); SGPT/ALT 35 U/L (13-61)
[2021-10-08 09:12] LABS: BILIRUBIN,TOTAL 0.6 mg/dL (0.2-1); TOT PROT 6.9 g/dl (6.4-8.2)
[2021-10-08 09:14] LABS: ALK PHOS 163 U/L (45-117)
[2021-10-08 09:16] LABS: ALBUMIN 2.3 g/dl (3.4-5.0); ANION GAP 27 MMOL/L (8-16)
[2021-10-08] MEDS: CALCIUM ACETATE 667 MG CAPSULE (FP) PO SCH ×3 (09:52→17:55)
[2021-10-08] MEDS: METOPROLOL TARTRATE 50 MG TABLET (FP) PO SCH ×2 (09:52→21:09)
[2021-10-08] MEDS: MUPIROCIN 2% TOPICAL OINTMENT FOR DECOLONIZATION NS SCH ×2 (10:00→21:02)
[2021-10-08] MEDS ORDERED: amLODIPine BESYLATE 10 MG TABLET (FP) PO SCH (10:00)
[2021-10-08] MEDS ORDERED: ASPIRIN 81 MG CHEWABLE TABLETS PO SCH (10:00)
[2021-10-08] MEDS ORDERED: FUROSEMIDE 40 MG TABLET (FP) PO SCH (10:00)
[2021-10-08] MEDS ORDERED: COLLAGENASE CLOSTRIDIUM HIST. 30 GRAMS TUBE TP SCH (10:00)
[2021-10-08] MEDS: INSULIN SLIDING SCALE (NOVOLOG) 1 VIAL SQ SCH ×3 (13:55→21:03)
[2021-10-08 15:28] LABS: URINE RBC 315.1 /uL (0-23.9)
[2021-10-08 15:32] LABS: YEAST NONE SEEN (NEGATIVE)
[2021-10-08 16:24] LABS: CALCIUM 8.1 mg/dL (8.5-10.1)
[2021-10-08 16:28] LABS: CREATININE 3.9 mg/dL (0.55-1.3)
[2021-10-08 16:29] LABS: LACTIC ACID 12.6 mmol/L (0.4-2.0)
[2021-10-08] MEDS: NOREPINEPHRINE D5W PREMIX 16,000 MCG/500 ML BAG IVPB SCH (19:00)
[2021-10-08] MEDS ORDERED: guaiFENesin/D-METHORPHAN HB 10 ML UNIT-DOSE CUPS PO PRN (20:16)
[2021-10-08] MEDS: CHLORHEXIDINE GLUCONATE 4% CLEANSER FOR DECOLONIZATION TP SCH (21:03)
[2021-10-08] MEDS ORDERED: MEROPENEM 500 MG VIAL (RESTRICTED TO ID) IVPB ONE (21:04)
[2021-10-08] MEDS ORDERED: DEXTROSE 5%-WATER 100 ML IVPB ONE (21:04)
[2021-10-08] MEDS: MEROPENEM 500 MG in DEXTROSE 5%-WATER 100 ML IVPB SCH (21:07)
[2021-10-08] MEDS: MELATONIN 5 MG TABLETS PO SCH (21:09)
[2021-10-08 23:06] LABS: VENOUS BASE EXCESS -5.8 mmol/L (-2-2); VENOUS O2 SATURATION 66.5 % (70-80); VENOUS PCO2 36.8 mmHg (38-52); VENOUS PH 7.339 (7.310-7.410)
[2021-10-08 23:08] LABS: BASO % 0.1 % (0-2.0); HEMATOCRIT 22.5 % (35.4-49); HEMOGLOBIN 7.2 GM/dL (11.7-16.9); LYMPH % 2.7 % (8-40); MCH 27.5 pg (25.7-33.7); MCHC 31.9 g/dl (32.0-35.9); MEAN CELL VOLUME 86.2 fl (80-96); MEAN PLT VOLUME 8.1 fl (7.5-11.1); MONO % 7.6 % (3.8-10.2); NEUT % 89.6 % (42.8-82.8); PLATELET COUNT 112 10^3/uL (134-434); RBC 2.61 M/mm3 (4.00-5.60); RDW 21.2 % (11.9-15.9); WHITE BLOOD COUNT 7.7 K/mm3 (4.0-10.0)
[2021-10-08 23:40] LABS: LACTIC ACID 11.3 mmol/L (0.4-2.0)
[2021-10-09] MEDS: HEPARIN NA (PORCINE) 5,000 UNITS/ML 1ML VIAL SQ SCH ×3 (06:17→21:33)
[2021-10-09] MEDS: INSULIN SLIDING SCALE (NOVOLOG) 1 VIAL SQ SCH ×4 (06:17→21:29)
[2021-10-09] MEDS ORDERED: SODIUM CHLORIDE 250 ML IV PRN ×2 (07:00→11:00)
[2021-10-09 07:17] LABS: BASO % 0.3 % (0-2.0); EOS % 0.1 % (0-4.5); HEMATOCRIT 21.3 % (35.4-49); MCH 28.1 pg (25.7-33.7); MCHC 32.8 g/dl (32.0-35.9); MEAN CELL VOLUME 85.6 fl (80-96); MEAN PLT VOLUME 8.3 fl (7.5-11.1); MONO % 9.7 % (3.8-10.2); NEUT % 84.9 % (42.8-82.8); PLATELET COUNT 96 10^3/uL (134-434); RBC 2.49 M/mm3 (4.00-5.60); RDW 21.3 % (11.9-15.9); WHITE BLOOD COUNT 6.6 K/mm3 (4.0-10.0)
[2021-10-09 07:29] LABS: ALBUMIN 2.3 g/dl (3.4-5.0); BLOOD UREA NITROGEN 37.8 mg/dL (7-18)
[2021-10-09 07:32] LABS: CREATININE 4.7 mg/dL (0.55-1.3); PHOSPHOROUS 4.8 mg/dL (2.5-4.9)
[2021-10-09 07:33] LABS: BILIRUBIN,TOTAL 0.6 mg/dL (0.2-1)
[2021-10-09 07:34] LABS: TOT PROT 6.2 g/dl (6.4-8.2)
[2021-10-09 09:01] LABS: HEMATOCRIT 21.4 % (35.4-49); MCH 27.8 pg (25.7-33.7); MCHC 32.4 g/dl (32.0-35.9); MEAN CELL VOLUME 85.7 fl (80-96); MEAN PLT VOLUME 8.3 fl (7.5-11.1); PLATELET COUNT 92 10^3/uL (134-434); RDW 21.4 % (11.9-15.9); WHITE BLOOD COUNT 6.6 K/mm3 (4.0-10.0)
[2021-10-09 09:14] LABS: HEMOGLOBIN 6.9 GM/dL (11.7-16.9)
[2021-10-09] MEDS ORDERED: ALTEPLASE (CATHFLO) 2 MG/2 ML VIAL NR ONE (09:43)
[2021-10-09] MEDS ORDERED: MEROPENEM 500 MG VIAL (RESTRICTED TO ID) IVPB ONE ×2 (10:54→21:31)
[2021-10-09] MEDS ORDERED: DEXTROSE 5%-WATER 100 ML IVPB ONE ×2 (10:55→21:31)
[2021-10-09] MEDS: METOPROLOL TARTRATE 50 MG TABLET (FP) PO SCH ×2 (10:57→21:23)
[2021-10-09] MEDS: ASPIRIN 81 MG CHEWABLE TABLETS PO SCH (11:15)
[2021-10-09] MEDS: CALCIUM ACETATE 667 MG CAPSULE (FP) PO SCH ×3 (11:15→17:15)
[2021-10-09] MEDS: MEROPENEM 500 MG in DEXTROSE 5%-WATER 100 ML IVPB SCH ×2 (11:15→21:33)
[2021-10-09] MEDS: MUPIROCIN 2% TOPICAL OINTMENT FOR DECOLONIZATION NS SCH ×2 (11:15→21:22)
[2021-10-09] MEDS: COLLAGENASE CLOSTRIDIUM HIST. 30 GRAMS TUBE TP SCH (11:15)
[2021-10-09] MEDS: NOREPINEPHRINE D5W PREMIX 16,000 MCG/500 ML BAG IVPB SCH (21:00)
[2021-10-09] MEDS: CHLORHEXIDINE GLUCONATE 4% CLEANSER FOR DECOLONIZATION TP SCH (21:22)
[2021-10-09] MEDS: INSULIN (LEVEMIR) 100 UNITS/ML UNITS SQ SCH (21:34)
[2021-10-09] MEDS: MELATONIN 5 MG TABLETS PO SCH (21:34)
[2021-10-10] MEDS: HEPARIN NA (PORCINE) 5,000 UNITS/ML 1ML VIAL SQ SCH ×3 (06:09→21:41)
[2021-10-10 06:40] LABS: EOS % 0.6 % (0-4.5); HEMATOCRIT 26.1 % (35.4-49); HEMOGLOBIN 8.5 GM/dL (11.7-16.9); MCH 27.7 pg (25.7-33.7); MCHC 32.5 g/dl (32.0-35.9); MEAN CELL VOLUME 85.3 fl (80-96); MEAN PLT VOLUME 8.6 fl (7.5-11.1); MONO % 7.5 % (3.8-10.2); NEUT % 84.5 % (42.8-82.8); PLATELET COUNT 84 10^3/uL (134-434); RBC 3.06 M/mm3 (4.00-5.60); RDW 19.7 % (11.9-15.9); WHITE BLOOD COUNT 6.1 K/mm3 (4.0-10.0)
[2021-10-10 06:41] LABS: BASO % 0.4 % (0-2.0)
[2021-10-10] MEDS: INSULIN SLIDING SCALE (NOVOLOG) 1 VIAL SQ SCH ×4 (06:59→21:44)
[2021-10-10 07:00] LABS: BLOOD UREA NITROGEN 29.7 mg/dL (7-18); CALCIUM 7.6 mg/dL (8.5-10.1)
[2021-10-10 07:01] LABS: ALBUMIN 2.3 g/dl (3.4-5.0)
[2021-10-10 07:03] LABS: CREATININE 4.3 mg/dL (0.55-1.3); PHOSPHOROUS 2.6 mg/dL (2.5-4.9)
[2021-10-10 07:04] LABS: TOT PROT 6.1 g/dl (6.4-8.2)
[2021-10-10 07:05] LABS: BILIRUBIN,TOTAL 0.7 mg/dL (0.2-1)
[2021-10-10 07:17] LABS: VENOUS BASE EXCESS 0.4 mmol/L (-2-2); VENOUS O2 SATURATION 98.6 % (70-80); VENOUS PCO2 47.8 mmHg (38-52); VENOUS PH 7.357 (7.310-7.410)
[2021-10-10] MEDS ORDERED: MEROPENEM 500 MG VIAL (RESTRICTED TO ID) IVPB ONE (09:07)
[2021-10-10] MEDS ORDERED: DEXTROSE 5%-WATER 100 ML IVPB ONE (09:08)
[2021-10-10] MEDS: ASPIRIN 81 MG CHEWABLE TABLETS PO SCH (09:10)
[2021-10-10] MEDS: METOPROLOL TARTRATE 50 MG TABLET (FP) PO SCH ×2 (09:10→21:42)
[2021-10-10] MEDS: COLLAGENASE CLOSTRIDIUM HIST. 30 GRAMS TUBE TP SCH (09:10)
[2021-10-10] MEDS: MEROPENEM 500 MG in DEXTROSE 5%-WATER 100 ML IVPB SCH (09:10)
[2021-10-10] MEDS: CALCIUM ACETATE 667 MG CAPSULE (FP) PO SCH ×3 (09:10→17:03)
[2021-10-10] MEDS: MUPIROCIN 2% TOPICAL OINTMENT FOR DECOLONIZATION NS SCH ×2 (09:10→21:41)
[2021-10-10 11:15] LABS: LACTIC ACID 3.8 mmol/L (0.4-2.0)
[2021-10-10] MEDS: NOREPINEPHRINE D5W PREMIX 16,000 MCG/500 ML BAG IVPB SCH (20:58)
[2021-10-10] MEDS: CHLORHEXIDINE GLUCONATE 4% CLEANSER FOR DECOLONIZATION TP SCH (21:41)
[2021-10-10] MEDS: INSULIN (LEVEMIR) 100 UNITS/ML UNITS SQ SCH (21:43)
[2021-10-10] MEDS: MELATONIN 5 MG TABLETS PO SCH (21:48)
[2021-10-11] MEDS: HEPARIN NA (PORCINE) 5,000 UNITS/ML 1ML VIAL SQ SCH ×3 (05:39→22:45)
[2021-10-11] MEDS: INSULIN SLIDING SCALE (NOVOLOG) 1 VIAL SQ SCH ×4 (06:45→22:46)
[2021-10-11] MEDS ORDERED: SODIUM CHLORIDE 250 ML IV PRN (07:00)
[2021-10-11] MEDS ORDERED: DEXTROSE 50%-WATER - 25 GM/50 ML VIAL IVPUSH PRN (07:00)
[2021-10-11] MEDS ORDERED: EPOETIN ALFA-EPBX 10,000 UNIT/ML VIAL SQ ONE (07:00)
[2021-10-11 07:20] LABS: BASO % 2.1 % (0-2.0); HEMATOCRIT 27.2 % (35.4-49); HEMOGLOBIN 8.8 GM/dL (11.7-16.9); LYMPH % 6.7 % (8-40); MCH 27.7 pg (25.7-33.7); MCHC 32.4 g/dl (32.0-35.9); MEAN CELL VOLUME 85.3 fl (80-96); MEAN PLT VOLUME 8.9 fl (7.5-11.1); MONO % 8.8 % (3.8-10.2); NEUT % 79.4 % (42.8-82.8); PLATELET COUNT 75 10^3/uL (134-434); RBC 3.19 M/mm3 (4.00-5.60); RDW 19.8 % (11.9-15.9); WHITE BLOOD COUNT 4.9 K/mm3 (4.0-10.0)
[2021-10-11 07:46] LABS: ALBUMIN 2.6 g/dl (3.4-5.0); CALCIUM 8.3 mg/dL (8.5-10.1); MAGNESIUM 2.1 mg/dL (1.8-2.4)
[2021-10-11 07:49] LABS: PHOSPHOROUS 2.4 mg/dL (2.5-4.9)
[2021-10-11 07:51] LABS: CREATININE 5.3 mg/dL (0.55-1.3)
[2021-10-11 07:52] LABS: BILIRUBIN,TOTAL 0.6 mg/dL (0.2-1); TOT PROT 6.2 g/dl (6.4-8.2)
[2021-10-11] MEDS: ALBUMIN HUMAN 25% 12.5 GM/50 ML VIAL IV SCH ×3 (08:05→08:15)
[2021-10-11] MEDS: COLLAGENASE CLOSTRIDIUM HIST. 30 GRAMS TUBE TP SCH (11:55)
[2021-10-11] MEDS: MUPIROCIN 2% TOPICAL OINTMENT FOR DECOLONIZATION NS SCH ×2 (11:55→22:45)
[2021-10-11] MEDS: ASPIRIN 81 MG CHEWABLE TABLETS PO SCH (11:55)
[2021-10-11] MEDS: METOPROLOL TARTRATE 50 MG TABLET (FP) PO SCH ×2 (11:55→22:46)
[2021-10-11] MEDS: CALCIUM ACETATE 667 MG CAPSULE (FP) PO SCH ×3 (11:55→16:31)
[2021-10-11] MEDS: NOREPINEPHRINE D5W PREMIX 16,000 MCG/500 ML BAG IVPB SCH (20:52)
[2021-10-11] MEDS: INSULIN (LEVEMIR) 100 UNITS/ML UNITS SQ SCH (22:45)
[2021-10-11] MEDS: CHLORHEXIDINE GLUCONATE 4% CLEANSER FOR DECOLONIZATION TP SCH (22:46)
[2021-10-11] MEDS: MELATONIN 5 MG TABLETS PO SCH (22:46)
[2021-10-12] MEDS: HEPARIN NA (PORCINE) 5,000 UNITS/ML 1ML VIAL SQ SCH ×3 (06:39→21:29)
[2021-10-12] MEDS: INSULIN SLIDING SCALE (NOVOLOG) 1 VIAL SQ SCH ×4 (06:49→21:37)
[2021-10-12 07:26] LABS: HEMATOCRIT 25.7 % (35.4-49); HEMOGLOBIN 8.3 GM/dL (11.7-16.9); MCH 27.9 pg (25.7-33.7); MCHC 32.5 g/dl (32.0-35.9); MEAN CELL VOLUME 85.8 fl (80-96); MEAN PLT VOLUME 9.1 fl (7.5-11.1); PLATELET COUNT 77 10^3/uL (134-434); RBC 2.99 M/mm3 (4.00-5.60); WHITE BLOOD COUNT 4.7 K/mm3 (4.0-10.0)
[2021-10-12 07:31] LABS: ALBUMIN 2.6 g/dl (3.4-5.0); CALCIUM 7.7 mg/dL (8.5-10.1); MAGNESIUM 1.9 mg/dL (1.8-2.4)
[2021-10-12 07:35] LABS: CREATININE 4.8 mg/dL (0.55-1.3); PHOSPHOROUS 1.6 mg/dL (2.5-4.9)
[2021-10-12 07:36] LABS: BILIRUBIN,TOTAL 0.5 mg/dL (0.2-1); TOT PROT 6.3 g/dl (6.4-8.2)
[2021-10-12] MEDS ORDERED: SODIUM PHOSPHATE - 30 MM in SODIUM CHLORIDE 250 ML IVPB ONE (09:00)
[2021-10-12] MEDS: FUROSEMIDE 40 MG/4 ML INJECTABLE VIAL IVPUSH SCH (09:31)
[2021-10-12] MEDS: METOPROLOL TARTRATE 50 MG TABLET (FP) PO SCH ×2 (09:32→21:29)
[2021-10-12] MEDS: guaiFENesin/D-METHORPHAN HB 10 ML UNIT-DOSE CUPS PO PRN (09:39)
[2021-10-12] MEDS: COLLAGENASE CLOSTRIDIUM HIST. 30 GRAMS TUBE TP SCH (09:40)
[2021-10-12] MEDS ORDERED: BENZOCAINE/MENTH/CETYLPYRD CL 1 EACH LOZENGE MM PRN (09:53)
[2021-10-12] MEDS: CALCIUM ACETATE 667 MG CAPSULE (FP) PO SCH ×3 (12:33→18:20)
[2021-10-12] MEDS ORDERED: SIMETHICONE 40 MG/0.6 ML BOTTLE PO PRN (17:11)
[2021-10-12] MEDS ORDERED: MAG HYDROX/AL HYDROX/SIMETH 30 ML UNIT-DOSE CUP PO PRN (17:30)
[2021-10-12] MEDS: MELATONIN 5 MG TABLETS PO SCH (21:30)
[2021-10-12] MEDS: INSULIN (LEVEMIR) 100 UNITS/ML UNITS SQ SCH (21:36)
[2021-10-13] MEDS: HEPARIN NA (PORCINE) 5,000 UNITS/ML 1ML VIAL SQ SCH ×3 (06:40→22:23)
[2021-10-13] MEDS: INSULIN SLIDING SCALE (NOVOLOG) 1 VIAL SQ SCH ×4 (06:43→22:27)
[2021-10-13 07:35] LABS: BASO % 1.2 % (0-2.0); EOS % 2.7 % (0-4.5); HEMATOCRIT 26.8 % (35.4-49); HEMOGLOBIN 8.7 GM/dL (11.7-16.9); LYMPH % 8.8 % (8-40); MCHC 32.6 g/dl (32.0-35.9); MEAN PLT VOLUME 9.6 fl (7.5-11.1); MONO % 14.8 % (3.8-10.2); NEUT % 72.5 % (42.8-82.8); PLATELET COUNT 99 10^3/uL (134-434); RBC 3.12 M/mm3 (4.00-5.60); RDW 19.5 % (11.9-15.9); WHITE BLOOD COUNT 5.9 K/mm3 (4.0-10.0)
[2021-10-13 07:54] LABS: CALCIUM 7.7 mg/dL (8.5-10.1)
[2021-10-13 07:55] LABS: ALBUMIN 2.5 g/dl (3.4-5.0); BLOOD UREA NITROGEN 48.8 mg/dL (7-18); MAGNESIUM 2.1 mg/dL (1.8-2.4)
[2021-10-13 07:58] LABS: PHOSPHOROUS 3.8 mg/dL (2.5-4.9)
[2021-10-13 07:59] LABS: BILIRUBIN,TOTAL 0.6 mg/dL (0.2-1); TOT PROT 6.4 g/dl (6.4-8.2)
[2021-10-13] MEDS: CALCIUM ACETATE 667 MG CAPSULE (FP) PO SCH ×3 (08:55→16:52)
[2021-10-13] MEDS: METOPROLOL TARTRATE 50 MG TABLET (FP) PO SCH ×2 (09:30→22:23)
[2021-10-13] MEDS: FUROSEMIDE 40 MG/4 ML INJECTABLE VIAL IVPUSH SCH (09:30)
[2021-10-13] MEDS: COLLAGENASE CLOSTRIDIUM HIST. 30 GRAMS TUBE TP SCH (09:31)
[2021-10-13] MEDS: ALBUMIN HUMAN 25% 12.5 GM/50 ML VIAL IV SCH ×2 (10:10→10:11)
[2021-10-13 12:19] VITALS: BMI 25.3
[2021-10-13] MEDS ORDERED: SODIUM CHLORIDE 250 ML IV PRN (18:46)
[2021-10-13] MEDS: INSULIN (LEVEMIR) 100 UNITS/ML UNITS SQ SCH (22:23)
[2021-10-13] MEDS: MELATONIN 5 MG TABLETS PO SCH (22:23)
[2021-10-14] MEDS ORDERED: MAG HYDROX/AL HYDROX/SIMETH 30 ML UNIT-DOSE CUP PO ONE (02:37)
[2021-10-14] MEDS: HEPARIN NA (PORCINE) 5,000 UNITS/ML 1ML VIAL SQ SCH ×2 (06:21→14:07)
[2021-10-14] MEDS: INSULIN SLIDING SCALE (NOVOLOG) 1 VIAL SQ SCH ×4 (06:22→23:40)
[2021-10-14] MEDS: CALCIUM ACETATE 667 MG CAPSULE (FP) PO SCH ×3 (08:55→17:03)
[2021-10-14 09:01] LABS: HEMATOCRIT 27.8 % (35.4-49); MCH 27.9 pg (25.7-33.7); MCHC 32.2 g/dl (32.0-35.9); MEAN CELL VOLUME 86.6 fl (80-96); MEAN PLT VOLUME 10.7 fl (7.5-11.1); PLATELET COUNT 120 10^3/uL (134-434); RBC 3.21 M/mm3 (4.00-5.60); RDW 19.9 % (11.9-15.9); WHITE BLOOD COUNT 6.8 K/mm3 (4.0-10.0)
[2021-10-14 09:17] LABS: CALCIUM 7.8 mg/dL (8.5-10.1)
[2021-10-14 09:18] LABS: ALBUMIN 2.6 g/dl (3.4-5.0); BLOOD UREA NITROGEN 60.7 mg/dL (7-18)
[2021-10-14 09:21] LABS: CREATININE 6.9 mg/dL (0.55-1.3); PHOSPHOROUS 3.8 mg/dL (2.5-4.9)
[2021-10-14 09:22] LABS: TOT PROT 6.6 g/dl (6.4-8.2)
[2021-10-14 09:23] LABS: BILIRUBIN,TOTAL 0.5 mg/dL (0.2-1)
[2021-10-14] MEDS: COLLAGENASE CLOSTRIDIUM HIST. 30 GRAMS TUBE TP SCH (10:33)
[2021-10-14] MEDS: METOPROLOL TARTRATE 50 MG TABLET (FP) PO SCH ×2 (10:33→23:36)
[2021-10-14] MEDS: INSULIN (LEVEMIR) 100 UNITS/ML UNITS SQ SCH (23:36)
[2021-10-14] MEDS: MELATONIN 5 MG TABLETS PO SCH (23:36)
[2021-10-15 06:42] LABS: HEMATOCRIT 28.3 % (35.4-49); HEMOGLOBIN 9.1 GM/dL (11.7-16.9); MCH 27.9 pg (25.7-33.7); MEAN CELL VOLUME 87.2 fl (80-96); MEAN PLT VOLUME 9.8 fl (7.5-11.1); PLATELET COUNT 124 10^3/uL (134-434); RBC 3.25 M/mm3 (4.00-5.60); WHITE BLOOD COUNT 6.2 K/mm3 (4.0-10.0)
[2021-10-15] MEDS: INSULIN SLIDING SCALE (NOVOLOG) 1 VIAL SQ SCH ×4 (06:57→21:29)
[2021-10-15 07:04] LABS: CALCIUM 8.3 mg/dL (8.5-10.1)
[2021-10-15 07:05] LABS: ALBUMIN 2.6 g/dl (3.4-5.0); BLOOD UREA NITROGEN 42.3 mg/dL (7-18); MAGNESIUM 2.1 mg/dL (1.8-2.4)
[2021-10-15 07:08] LABS: CREATININE 5.6 mg/dL (0.55-1.3)
[2021-10-15 07:09] LABS: TOT PROT 6.6 g/dl (6.4-8.2)
[2021-10-15 07:10] LABS: BILIRUBIN,TOTAL 0.6 mg/dL (0.2-1)
[2021-10-15] MEDS: CALCIUM ACETATE 667 MG CAPSULE (FP) PO SCH ×3 (08:00→17:44)
[2021-10-15] MEDS: COLLAGENASE CLOSTRIDIUM HIST. 30 GRAMS TUBE TP SCH (10:55)
[2021-10-15] MEDS: METOPROLOL TARTRATE 50 MG TABLET (FP) PO SCH ×2 (10:55→21:29)
[2021-10-15 13:07] LABS: SARS-CoV-2 NAA Not Detected (Not Detected)
[2021-10-15] MEDS: HEPARIN NA (PORCINE) 5,000 UNITS/ML 1ML VIAL SQ SCH ×2 (14:00→21:28)
[2021-10-15] MEDS: INSULIN (LEVEMIR) 100 UNITS/ML UNITS SQ SCH (21:28)
[2021-10-15] MEDS: MELATONIN 5 MG TABLETS PO SCH (21:29)
[2021-10-16] MEDS ORDERED: ALBUTEROL SO4 HFA INHALER IH PRN (02:22)
[2021-10-16] MEDS: HEPARIN NA (PORCINE) 5,000 UNITS/ML 1ML VIAL SQ SCH ×3 (06:26→21:51)
[2021-10-16] MEDS: INSULIN SLIDING SCALE (NOVOLOG) 1 VIAL SQ SCH ×4 (06:48→22:15)
[2021-10-16] MEDS ORDERED: SODIUM CHLORIDE 250 ML IV PRN (07:05)
[2021-10-16 07:31] LABS: HEMATOCRIT 28.2 % (35.4-49); HEMOGLOBIN 9.3 GM/dL (11.7-16.9); MCH 28.5 pg (25.7-33.7); MCHC 32.8 g/dl (32.0-35.9); MEAN CELL VOLUME 86.9 fl (80-96); MEAN PLT VOLUME 9.4 fl (7.5-11.1); PLATELET COUNT 133 10^3/uL (134-434); RBC 3.24 M/mm3 (4.00-5.60); RDW 20.6 % (11.9-15.9); WHITE BLOOD COUNT 6.2 K/mm3 (4.0-10.0)
[2021-10-16 07:49] LABS: CALCIUM 8.1 mg/dL (8.5-10.1)
[2021-10-16 07:50] LABS: ALBUMIN 2.6 g/dl (3.4-5.0); BLOOD UREA NITROGEN 54.9 mg/dL (7-18)
[2021-10-16 07:53] LABS: CREATININE 6.8 mg/dL (0.55-1.3)
[2021-10-16 07:55] LABS: BILIRUBIN,TOTAL 0.7 mg/dL (0.2-1); TOT PROT 6.7 g/dl (6.4-8.2)
[2021-10-16] MEDS ORDERED: EPOETIN ALFA-EPBX 10,000 UNIT/ML VIAL SQ ONE (08:00)
[2021-10-16] MEDS: CALCIUM ACETATE 667 MG CAPSULE (FP) PO SCH ×3 (08:00→18:01)
[2021-10-16] MEDS: METOPROLOL TARTRATE 50 MG TABLET (FP) PO SCH ×2 (11:21→21:51)
[2021-10-16] MEDS: COLLAGENASE CLOSTRIDIUM HIST. 30 GRAMS TUBE TP SCH (11:22)
[2021-10-16] MEDS: INSULIN (LEVEMIR) 100 UNITS/ML UNITS SQ SCH (21:52)
[2021-10-16] MEDS: MELATONIN 5 MG TABLETS PO SCH (21:52)
[2021-10-17] MEDS: INSULIN SLIDING SCALE (NOVOLOG) 1 VIAL SQ SCH ×4 (06:54→21:36)
[2021-10-17 07:31] LABS: HEMATOCRIT 27.4 % (35.4-49); HEMOGLOBIN 8.9 GM/dL (11.7-16.9); MCH 28.2 pg (25.7-33.7); MCHC 32.4 g/dl (32.0-35.9); MEAN CELL VOLUME 87.2 fl (80-96); MEAN PLT VOLUME 9.6 fl (7.5-11.1); PLATELET COUNT 152 10^3/uL (134-434); RBC 3.14 M/mm3 (4.00-5.60); RDW 20.6 % (11.9-15.9)
[2021-10-17 07:50] LABS: BLOOD UREA NITROGEN 39.6 mg/dL (7-18); CALCIUM 8.2 mg/dL (8.5-10.1)
[2021-10-17 07:51] LABS: ALBUMIN 2.7 g/dl (3.4-5.0)
[2021-10-17 07:55] LABS: BILIRUBIN,TOTAL 0.6 mg/dL (0.2-1)
[2021-10-17] MEDS: CALCIUM ACETATE 667 MG CAPSULE (FP) PO SCH ×3 (11:10→16:53)
[2021-10-17] MEDS: TORSEMIDE 20 MG TABLET (FP) PO SCH (11:10)
[2021-10-17] MEDS: METOPROLOL TARTRATE 50 MG TABLET (FP) PO SCH ×2 (11:10→21:28)
[2021-10-17] MEDS: COLLAGENASE CLOSTRIDIUM HIST. 30 GRAMS TUBE TP SCH (11:10)
[2021-10-17] MEDS: HEPARIN NA (PORCINE) 5,000 UNITS/ML 1ML VIAL SQ SCH (13:00)
[2021-10-17 15:11] LABS: BF WBC & OTHER NUCLEATED CELLS 227 /mm3
[2021-10-17 15:48] LABS: BODY FLUID MACROPHAGES 29 %; BODY FLUID MESOTHELIAL 14 %; BODY FLUID MONOCYTE 3 %
[2021-10-17] MEDS: MELATONIN 5 MG TABLETS PO SCH (21:28)
[2021-10-17] MEDS: guaiFENesin/D-METHORPHAN HB 10 ML UNIT-DOSE CUPS PO PRN (21:29)
[2021-10-17] MEDS: INSULIN (LEVEMIR) 100 UNITS/ML UNITS SQ SCH (21:29)
[2021-10-18] MEDS: INSULIN SLIDING SCALE (NOVOLOG) 1 VIAL SQ SCH ×3 (06:07→17:30)
[2021-10-18] MEDS ORDERED: SODIUM CHLORIDE 250 ML IV PRN (07:12)
[2021-10-18 07:31] LABS: HEMATOCRIT 27.4 % (35.4-49); HEMOGLOBIN 8.9 GM/dL (11.7-16.9); MCH 28.5 pg (25.7-33.7); MCHC 32.6 g/dl (32.0-35.9); MEAN CELL VOLUME 87.4 fl (80-96); MEAN PLT VOLUME 9.6 fl (7.5-11.1); PLATELET COUNT 155 10^3/uL (134-434); RBC 3.13 M/mm3 (4.00-5.60); RDW 21.3 % (11.9-15.9); WHITE BLOOD COUNT 8.3 K/mm3 (4.0-10.0)
[2021-10-18] MEDS ORDERED: HEPARIN NA (PORCINE) 5,000 UNITS/ML 1ML VIAL IVPUSH ONE (07:45)
[2021-10-18 07:58] LABS: ALBUMIN 2.2 g/dl (3.4-5.0); CALCIUM 8.2 mg/dL (8.5-10.1)
[2021-10-18 07:59] LABS: BLOOD UREA NITROGEN 52.4 mg/dL (7-18)
[2021-10-18 08:01] LABS: CREATININE 6.1 mg/dL (0.55-1.3)
[2021-10-18 08:02] LABS: PHOSPHOROUS 2.6 mg/dL (2.5-4.9)
[2021-10-18 08:03] LABS: BILIRUBIN,TOTAL 0.6 mg/dL (0.2-1)
[2021-10-18] MEDS: CALCIUM ACETATE 667 MG CAPSULE (FP) PO SCH ×3 (09:00→17:30)
[2021-10-18] MEDS ORDERED: EPOETIN ALFA-EPBX 10,000 UNIT/ML VIAL SQ ONE (09:00)
[2021-10-18] MEDS: TORSEMIDE 20 MG TABLET (FP) PO SCH (09:45)
[2021-10-18] MEDS: METOPROLOL TARTRATE 50 MG TABLET (FP) PO SCH (09:46)
[2021-10-18] MEDS: ALBUMIN HUMAN 25% 12.5 GM/50 ML VIAL IV SCH ×4 (10:00→11:02)
[2021-10-18] MEDS: COLLAGENASE CLOSTRIDIUM HIST. 30 GRAMS TUBE TP SCH (13:45)
[2021-10-18 18:40] VITALS: BP 125/68; PULSE 68; TEMP 98.6
== END 2021-10-18 18:30 | DRG 291 ==
LOC: JER 14:50 → JERBED 18:59 → J4S 22:33 → JICU 10-08 06:52 → J2W 10-11 21:46
PROVIDERS: ADMIT Hospitalist; ATTEND Internal Medicine
PROC: 5A1D70Z Performance of Urinary Filtration, Intermittent, Less than 6 Hours Per Day (ICD-10-PCS; 2021-10-08)
PROC: 5A1D70Z Performance of Urinary Filtration, Intermittent, Less than 6 Hours Per Day (ICD-10-PCS; 2021-10-08)
PROC: 0W993ZZ Drainage of Right Pleural Cavity, Percutaneous Approach (ICD-10-PCS; principal; 2021-10-17)
DX: I13.2 Hypertensive heart and chronic kidney disease with heart failure and with stage 5 chronic kidney disease, or end stage renal disease (principal); N18.6 End stage renal disease; G92.8 Other toxic encephalopathy; R57.0 Cardiogenic shock; J18.9 Pneumonia, unspecified organism; J96.01 Acute respiratory failure with hypoxia; E87.1 Hypo-osmolality and hyponatremia; N17.9 Acute kidney failure, unspecified; E87.2 Acidosis; F05 Delirium due to known physiological condition; I24.8 Other forms of acute ischemic heart disease; I50.22 Chronic systolic (congestive) heart failure; E11.22 Type 2 diabetes mellitus with diabetic chronic kidney disease; Z99.2 Dependence on renal dialysis; E78.5 Hyperlipidemia, unspecified; I25.2 Old myocardial infarction; I25.10 Atherosclerotic heart disease of native coronary artery without angina pectoris; R19.7 Diarrhea, unspecified; E87.5 Hyperkalemia; E11.649 Type 2 diabetes mellitus with hypoglycemia without coma; E03.9 Hypothyroidism, unspecified; Z95.1 Presence of aortocoronary bypass graft; Z89.431 Acquired absence of right foot; Z79.4 Long term (current) use of insulin; D64.9 Anemia, unspecified; D69.6 Thrombocytopenia, unspecified; I73.9 Peripheral vascular disease, unspecified; R13.10 Dysphagia, unspecified; R33.9 Retention of urine, unspecified; N40.1 Benign prostatic hyperplasia with lower urinary tract symptoms; E11.621 Type 2 diabetes mellitus with foot ulcer; I35.0 Nonrheumatic aortic (valve) stenosis; L97.519 Non-pressure chronic ulcer of other part of right foot with unspecified severity
CPT/HCPCS: 36415; 36430; 36600; 71045-TC-FY; 71046-TC-FY; 74230-TC-FY; 76775-TC; 76856-TC; 76942; 80048; 80053; 80307; 81003; 82150; 82465; 82533; 82550; 82570; 82803; 82945; 82962; 83605; 83615; 83735; 83880; 83930; 83986; 84100; 84157; 84300; 84436; 84439; 84443; 84478; 84479; 84480; 84484; 84540; 85025; 85027; 85610; 85730; 86850; 86900; 86901; 86922; 87040; 87070; 87075; 87077; 87086; 87102; 87116; 87205; 87206; 87210; 88108; 88305-TC; 92611-GN; 93005; 93010; 93971; 93971-TC; 94761; 97116-GP; 97161-GP; 99285-25; C9803-CS; G0480; J1644; J2997; J3490; P9058; Q5106; U0003; U0005